=== PATIENT | female | born 1950 | race African-American/Black ===

== ENCOUNTER 2017-09-15 14:48 | Inpatient (IN) | payer MEDICARE ==
[2017-09-15] VITALS (7 sets, daily range): BP systolic 106–179; BP diastolic 67–98
[~2017-09-15] VITALS: Ht 165.1 cm; Wt 111.7 kg
[2017-09-15] MEDS ORDERED: AMIODARONE 150 MG/3 ML (CORDARONE) AMP IV ONE ×2 (15:00→15:53)
[2017-09-15] MEDS: AMIODARONE FOR BOLUS 150 MG in D5W 100 ML IVPB 100 ML IV ONE ×2 (15:10→15:35)
[2017-09-15] MEDS ORDERED: LIDOCAINE 1% INJ 20 ML 20 ML VIAL ONE ×2 (15:11→15:38)
[2017-09-15] MEDS ORDERED: MIDAZOLAM 5 MG/5 ML (VERSED) VIAL ONE (15:11)
[2017-09-15] MEDS ORDERED: HEParin 1000 UNIT/ML (10ML VIAL) FOR BOLUS ONE ×2 (15:11→15:14)
[2017-09-15] MEDS ORDERED: fentaNYL INJECTION 100 MCG/2 ML AMP ONE ×2 (15:11→16:57)
[2017-09-15] MEDS ORDERED: NS IV 1000 ML 2,000 ML ONE (15:12)
[2017-09-15] MEDS ORDERED: NS IV 1000 ML 1,000 ML IV ONE (15:15)
[2017-09-15] MEDS ORDERED: ASPIRIN 81 MG CHEW (CHILDREN'S ASA) PO ONE (15:15)
[2017-09-15] MEDS ORDERED: CLOPIDOGREL 300 MG (PLAVIX) TABLET PO ONE (15:15)
[2017-09-15 15:23] LABS: BASOPHILS % (AUTO) 1 % (0-10); EOSINOPHILS # (AUTO) 0.3 10^3/uL (0.0-0.3); EOSINOPHILS % (AUTO) 6 % (0-10); HEMATOCRIT 43 % (35-52); HEMOGLOBIN 13.8 G/DL (11.5-16.0); LYMPHOCYTES # (AUTO) 2.4 X 10^3 (1.0-4.0); LYMPHOCYTES % (AUTO) 46 % (12-44); MEAN CORPUSCULAR HEMOGLOBIN 28 PG (25-34); MEAN CORPUSCULAR HGB CONC 32 G/DL (32-36); MEAN CORPUSCULAR VOLUME 88 FL (80-99); MEAN PLATELET VOLUME 10.8 FL (7.4-10.4); MONOCYTES # (AUTO) 0.7 X 10^3 (0.0-1.0); MONOCYTES % (AUTO) 13 % (0-12); NEUTROPHILS # (AUTO) 1.8 X 10^3 (1.8-7.8); NEUTROPHILS % (AUTO) 35 % (42-75); PLATELET COUNT 283 10^3/uL (130-400); RED BLOOD COUNT 4.86 10^6/uL (4.35-5.85); WHITE BLOOD COUNT 5.1 10^3/uL (4.3-11.0)
--- NOTE | 2017-09-15 15:29 | ED Chest Pain ---
General Chief Complaint: Chest Pain Stated Complaint: TACHYCARDIA Source: patient, family Exam Limitations: clinical condition History of Present Illness Date Seen by Provider: September 15, 2017 Time Seen by Provider: 14:55 Initial Comments This 59-year-old woman presents to the emergency room in distress from chest pain. She was in the parking lot and brought into the ER by hospital staff. Pain had started approximately 20-25 minutes prior to arrival. She reportedly got some bad news about a family member's health when the symptoms started. She has a history of coronary artery disease with stent placement and defibrillator placement. She apparently has not been following closely with her belt changer. On the monitor she has a wide complex tachycardia. Allergies and Home Medications Allergies Coded Allergies: codeine (Verified Allergy, Unknown, 09/15/17) meperidine (Verified Allergy, Unknown, 09/15/17) morphine (Verified Allergy, Unknown, 09/15/17) Patient Home Medication List Home Medication List Reviewed: Yes Review of Systems Constitutional: no symptoms reported EENTM: No Symptoms Reported Respiratory: Shortness of Air Cardiovascular: See HPI Gastrointestinal: No Symptoms Reported Genitourinary: No Symptoms Reported Musculoskeletal: no symptoms reported Skin: no symptoms reported Psychiatric/Neurological: See HPI Endocrine: No Symptoms Reported Hematologic/Lymphatic: No Symptoms Reported Past Gdcrlvl-Wtuqyr-Vupyjv Hx Patient Social History Alcohol Use: Denies Use Recreational Drug Use: No Smoking Status: Never a Smoker Past Medical History Surgeries: Yes Coronary Stent, Defibrillator Respiratory: No Cardiac: Yes Coronary Artery Disease Neurological: No : No Reproductive Disorders: No Sexually Transmitted Disease: No Genitourinary: No Musculoskeletal: Yes Chronic Back Pain Endocrine: Yes Diabetes, Non-Insulin dep HEENT: No Cancer: No Psychosocial: No Integumentary: No Physical Exam Vital Signs Capillary Refill : General Appearance: No Apparent Distress, Severe Distress HEENT: PERRL/EOMI, Normal ENT Inspection, Pharynx Normal Neck: Normal Inspection Respiratory: Lungs Clear, Normal Breath Sounds, No Accessory Muscle Use, No Respiratory Distress Cardiovascular: No Edema, No Murmur, Irregularly Irregular, Tachycardia Gastrointestinal: Non Tender, Soft Extremity: Normal Inspection, No Pedal Edema Neurologic/Psychiatric: Alert, Oriented x3, No Motor/Sensory Deficits, millinery blocker II- XII Norm as Tested, Other (severely anxious, hyperventilating) Skin: Normal Color, Warm/Dry Critical Care Note Critical Care Start Time: 14:55 Stop Time: 15:29 Total Time (minutes) 34 Progress/Results/Core Measures Results/Orders My Orders Orders - MARLY DONOVAN MD Amiodarone For Bolus (Cordarone Bolus) (09/15/17 15:00) Cbc With Automated Diff (09/15/17 15:13) Magnesium (09/15/17 15:13) Chest 1 View, Ap/Pa Only (09/15/17:13) Ekg Tracing (09/15/17:13) Cardiac Profile 1 (09/15/17 15:13) Comprehensive Metabolic Panel (09/15/17 15:13) Myoglobin Serum (09/15/17:13) Protime With Inr (09/15/17:13) Partial Thromboplastin Time (09/15/17 15:13) O2 (09/15/17 15:13) Monitor-Rhythm Ecg Trace Only (09/15/17:) Lipid Panel (09/16/17 06:00) Aspirin Chewable Tablet (Baby Aspirin Ch (09/15/17 15:15) Saline Lock/Iv-Start (09/15/17 15:13) Clopidogrel Tablet (Plavix Tablet) (09/15/17 15:15) Heparin Injection (Heparin Injection) (09/15/17 15:15) Saline Lock/Iv-Start (09/15/17 15:15) Ns Iv 1000 Ml (Sodium Chloride 0.9%) (09/15/17 15:15) Amiodarone For Bolus (Cordarone Bolus) (09/15/17 15:15) Lidocaine 1% Inj 20 Ml (Xylocaine 1% Inj (09/15/17 15:11) Midazolam Injection (Versed Injection) (09/15/17 15:11) Fentanyl Injection (Sublimaze Injection (09/15/17 15:11) Heparin (Bolus Per Protocol) (Heparin (B (09/15/17 15:11) Ns Iv 1000 Ml (Sodium Chloride 0.9%) (09/15/17 15:12) Progress Progress Note #1: Time: 15:20 Progress Note Patient was alert with a palpable pulse on assessment. Dr. Wong and Dr. Layne were immediately accessible and were contacted. They immediately presented to the emergency room to assess the patient. The decision was made to take the patient directly to the Roofing Sales Representative. Progress Note #2: Time: 15:29 Progress Note I was called back to patient's room as she became unresponsive. It would appear that she hyperventilated and had a syncopal episode. She continued to have a strong pulse and measurable blood pressure. She eventually regained alertness. Because of the altered mental status, Plavix 600 mg and aspirin 324 mg were not administered as ordered. Heparin was held at Dr. Wong's request until aortic and be visualized during the catheterization. EKG #1: EKG Time: 14:57 Rhythm: V.Tach Comment Wide complex tachycardia with a rate of 171. EKG #2: EKG Time: 14:58 Rate: 143 Rhythm: V.Tach Comment Ventricular tachycardia with a rate of 143. Rate irregular. Departure Impression Primary Impression: Wide-complex tachycardia Additional Impressions: Chest pain Qualified Codes: R07.9 - Chest pain, unspecified Hyperventilation Disposition: ADMITTED INPATIENT Condition: Critical Admissions Decision to Admit Reason: Admit from ER (General) Decision to Admit/Date: September 15, 2017 Time/Decision to Admit Time: 15:20 Departure-Patient Inst. Referrals: NO,LOCAL PHYSICIAN (PCP/Family) Primary Care Physician MARLY DONOVAN MD September 15, 2017 15:29
[2017-09-15 15:39] LABS: INR 0.9 (0.8-1.4); PROTHROMBIN TIME PATIENT 12.7 SEC (12.2-14.7)
[2017-09-15 15:49] LABS: ALANINE AMINOTRANSFERASE 42 U/L (0-55); ALBUMIN 4.4 GM/DL (3.2-4.5); ALKALINE PHOSPHATASE 117 U/L (40-136); BILIRUBIN,TOTAL 0.9 MG/DL (0.1-1.0); BUN/CREATININE RATIO 20; CALCIUM 10.2 MG/DL (8.5-10.1); CARBON DIOXIDE 22 MMOL/L (21-32); CHLORIDE 114 MMOL/L (98-107); CREATININE SERUM 0.94 MG/DL (0.60-1.30); GFR ESTIMATED > 60; GLUCOSE 100 MG/DL (70-105); MAGNESIUM 2.2 MG/DL (1.8-2.4); POTASSIUM 3.6 MMOL/L (3.6-5.0); SODIUM 144 MMOL/L (135-145); TOTAL PROTEIN 7.7 GM/DL (6.4-8.2)
[2017-09-15 15:55] LABS: MYOGLOBIN SERUM 33.5 NG/ML (10.0-92.0)
[2017-09-15] MEDS ORDERED: AMIODARONE 450 MG/250 ML D5W EXCEL IV SCH ×2 (16:00)
[2017-09-15] MEDS ORDERED: AMIODARONE INJECTION 450 MG in D5W IV SOLUTION (EXCEL) 250 ML IV SCH (16:00)
[2017-09-15] MEDS ORDERED: meTOprolol 5 MG/5 ML (LOPRESSOR) VIAL ONE ×2 (16:24→16:56)
--- NOTE | 2017-09-15 16:32 | History & Physicial-Cardiolgy ---
HPI-Cardiology Cardiology Consultation: Date of Consultation 09/15/17 Date of Admission Attending Physician Janet Wong MD Admitting Physician Sakshi,Local Physician Consulting Physician Janet WONG MD HPI: Time Seen by Provider: 13:30 Chief Complaint: Chest pain This is a 67-year-old lady with history of biventricular ICD Medtronic, PCI with drug-eluting stent to the RCA. She presents with severe substernal chest pain radiating to the shoulders. She denied complaining of any shortness of breath. EKG showed wide complex tachycardia. Bolus amiodarone was given and the patient was rushed to the [facility] [employer] C[employer] Farmer. Review of Systems-Cardiology Review of Systems Constitutional: As described under HPI; No As described under HPI, No no symptoms reported, No chills, No fever, No lightheadedness Eyes: No As described under HPI, No no symptoms reported, No blindness, No blurred vision, No contact lenses, No drainage, No decreased acuity, No foreign body sensation, No pain, No vision change Ears/Nose/Throat: No As described under HPI, No no symptoms reported, No chronic hearing loss, No ear discharge, No ear pain, No nasal drainage, No ulcerations Respiratory: No no symptoms reported; As described under HPI; No As described under HPI, No cough, No orthopnea, No shortness of breath, No SOB with excertion Cardiovascular: No no symptoms reported; As described under HPI; No As described under HPI; chest pain; No edema, No irregular heart rate, No lightheadedness; palpitations Gastrointestinal: No no symptoms reported, No As described under HPI, No abdomen distended, No abdominal pain, No blood streaked bowels, No constipation , No diarrhea, No nausea, No vomiting, No stool coloration changes Genitourinary: No As described under HPI, No burning, No dysuria, No discharge , No frequency, No flank pain, No hematuria, No urgency : Yes : No Musculoskeletal: No no symptoms reported, No As describe under HPI, No back pain, No gout, No joint pain, No joint swelling, No muscle pain, No muscle stiffness, No neck pain, No other Skin: No no symptoms reported, No As described under HPI, No change in color, No change in hair/nails, No dryness, No lesions, No lumps, No rash, No other, No skin related problems, No ulcerations, No rash on exposed areas, No ulcerations on exposed areas Psychiatric/Neurological: No anxiety, No depression, No seizure, No focal weakness, No syncope Hematologic: No bleeding abnormalities PFV-Zcflag-Knryef Hx Patient Social History Alcohol Use: Denies Use Recreational Drug Use: No Smoking Status: Never a Smoker Recent Foreign Travel: No Recent Infectious Disease Expo: No Past Medical History PMH As described under Assessment. Allergies and Home Medications Allergies Coded Allergies: codeine (Verified Allergy, Unknown, 09/15/17) meperidine (Verified Allergy, Unknown, 09/15/17) morphine (Verified Allergy, Unknown, 09/15/17) Patient Home Medication List Home Medication List Reviewed: Yes Physical Exam-Cardiology Physical Exam Vital Signs/I&O 09/15/17 09/15/17 14:48 15:27 Temp 98.0 Pulse 194 133 Resp 18 24 B/P (MAP) 91/56 (68) 137/112 Pulse Ox 100 100 O2 Delivery Room Air Room Air Capillary Refill : Less Than 3 Seconds Constitutional: apparent distress HEENT: No PERRL, No normal ENT inspection, No TMs normal, No pharynx normal, No scleral icterus (R), No scleral icterus (L), No pale conjunctivae (R), No pale conjunctivae (L), No photophobia, No TM abnormal (R), No TM abnormal (L), No pharyngeal erythema, No tonsillar exudate, No other, No discharge, No EOMI, No hearing is well preserved, No hard of hearing, No oral hygience is good, No ulceration, No xanthelasmas are seen Neck: No non-tender, No full range of motion, No supple, No normal inspection, No carotid bruit, No limited range of motion, No lymphadenopathy (R), No lymphadenopathy (L), No tender lateral, No tender midline, No thyromegaly, No other, No carotid pulses are 2 + bilaterally, No with good upstrokes Respiratory: chest is bilaterally symmetric, lungs clear to auscultation Cardiovascular: No regular rate-rhythm, No irregularly irregular, No extra beats, No parasternal heave is noted, No JVD, No edema, No bradycardia; tachycardia; No point of maximal impulse, No cardiac thrills are palpable; S1 and S2; No gallop/S3, No gallop/S4, No diastolic murmur, No systolic murmur, No friction rub, No click, No other Gastrointestinal: No tender, No soft, No round, No distended, No pulsatile mass , No organomegaly, No guarding, No rebound, No tenderness, No hernia, No mass, No audible bowel sounds, No abnormal bowel sounds, No abdominal bruits, No spleenomegaly, No other Rectal: deferred Extremities: No normal range of motion, No non-tender, No normal inspection, No pedal edema, No calf tenderness, No normal capillary refill, No pelvis stable , No calf tenderness, No inflammation, No pedal edema, No slow capillary refill , No swelling, No other, No abrasion, No clubbing, No cyanosis, No ecchymosis, No laceration, No no lower extremity edema bilateral, No significant edema, No tenderness, No wound Neurologic/Psychiatric: alert, normal mood/affect, oriented x 3 Skin: No normal color, No warm/dry, No cyanosis, No cool, No diaphoresis, No damp, No ecchymosis, No jaundice, No mottled, No pallor, No rash, No tattoos/ piercings, No ulcerations, No rash on exposed areas, No ulcerations on exposed areas, No other Data Review Labs Laboratory Tests 09/15/17 15:15: White Blood Count 5.1, Red Blood Count 4.86, Hemoglobin 13.8, Hematocrit 43, Mean Corpuscular Volume 88, Mean Corpuscular Hemoglobin 28, Mean Corpuscular Hemoglobin Concent 32, Red Cell Distribution Width 14.0, Platelet Count 283, Mean Platelet Volume 10.8H, Neutrophils (%) (Auto) 35L, Lymphocytes (%) (Auto) 46H, Monocytes (%) (Auto) 13H, Eosinophils (%) (Auto) 6, Basophils (%) (Auto) 1 , Neutrophils # (Auto) 1.8, Lymphocytes # (Auto) 2.4, Monocytes # (Auto) 0.7, Eosinophils # (Auto) 0.3, Basophils # (Auto) 0.0, Prothrombin Time 12.7, INR Comment 0.9, Activated Partial Thromboplast Time 35, Sodium Level 144, Potassium Level 3.6, Chloride Level 114H, Carbon Dioxide Level 22, Anion Gap 8, Blood Urea Nitrogen 19H, Creatinine 0.94, Estimat Glomerular Filtration Rate > 60, BUN/Creatinine Ratio 20, Glucose Level 100, Calcium Level 10.2H, Magnesium Level 2.2, Total Bilirubin 0.9, Aspartate Amino Transf (AST/SGOT) 56H, Alanine Aminotransferase (ALT/SGPT) 42, Alkaline Phosphatase 117, Myoglobin 33.5, Troponin I < 0.30, Total Protein 7.7, Albumin 4.4 ECG Impression ECG Comment Wide-complex tachycardia A/P-Cardiology Assessment/Admission Diagnosis Wide-complex tachycardia, Hypotension, History of PCI/CAD, History of biventricular ICD Admission Status: Inpatient Order (span 2 midnights) Reason for Inpatient Admission: Wide-complex tachycardia, cardiogenic shock. Plan Severe chest pain with wide-complex tachycardia in a patient with previous history of CAD/PCI. Urgent consent was taken for coronary angiography. Amiodarone bolus 150 mg IV was given in the ER. Patient was also given aspirin and Plavix bolus in the ER. History of PCI/CAD: Rule out acute coronary syndrome with serial troponin. Aspirin, Plavix. Echocardiogram. History of biventricular ICD: Device interrogation in the morning. Hypotension: Secondary to wide-complex tachycardia. Urgent coronary angiography. Clinical Quality Measures AMI/AHF: ASA po Prior to arrival: Janet Juárez MD September 15, 2017 16:32
--- NOTE | 2017-09-15 16:33 | Cardiac Procedure Note-CS/ASA ---
Pre-Procedure Note Pre-Op Procedure Note H&P Reviewed The H&P was reviewed, patient examined and no changes noted. Date H&P Reviewed: September 15, 2017 Time H&P Reviewed: 15:45 Conscious Sedation Pre-Proced Time Reviewed: 15:45 ASA Class: 3 Airway Mallampati Classification: ([place] appropriate class) I. II. III, IV Lungs Heart ASA score ASA 1: a normal healthy patient ASA 2: a patient with a mild systemic disease (mid diabetes, controlled hypertension, obesity ASA 3: a patient with a severe systemic disease that limits activity (angina , COPD, prior Myocardial infarction) ASA 4: a patient with an incapacitating disease that is a constant threat to life (CHF, renal failure) ASA 5: a moribund patient not expected to survive 24 hrs. (ruptured aneurysm) ASA 6: a declared brain patient whose organs are being harvested. For emergent operations, add the letter E after the classification Grade 1 Sedation Plan: Analgesia, Amnesia, Plan communicated to team members, Discussed options with patient/fam, Discussed risks with patient/fam Note The patient is an appropriate candidate to undergo the planned procedure, sedation, and anesthesia. The patient immediately re-assessed prior to indication. Janet PLEITEZ MD September 15, 2017 16:33
--- NOTE | 2017-09-15 16:40 | Coronary Angiography Report ---
Coronary Angiography Report DATE OF PROCEDURE: 09/15/17 INDICATION: Severe chest pain, history of PCI, wide-complex tachycardia, hypotension. PREOPERATIVE DIAGNOSIS: Severe chest pain, history of PCI, wide-complex tachycardia, hypotension. POSTOPERATIVE DIAGNOSIS: Patent RCA stents, mild CAD, normal LV function. HISTORY: This is a 67-year-old lady with history of PCI to the RCA with drug- eluting stent and biventricular ICD implantation Medtronic. She presented with severe chest pain. EKG showed wide complex tachycardia with systolic blood pressure of 90 mmHg. She was rushed to the Cavalry Officer. PROCEDURES PERFORMED: 1.Coronary angiography. 2.Left heart catheterization. 3. Aortic root injection. 4. Aortic arch angiography. COMPLICATIONS: None. SPECIMENS: None. ESTIMATED BLOOD LOSS: 10 mL ANESTHESIA: Conscious sedation ANTICOAGULATION: None CONTRAST: 96 mL. FLUOROSCOPY: 2.6 minutes. FLOUROSCOPY DOSE: [id number] [id number] PROCEDURE DETAILS: The patient is a 67 female and was brought to the gold leaf laborer after informed consent was taken. All the risks and complications were explained in detail; this included the risk of bleeding, vascular damage, stroke , [place] and even . The patient was draped and prepped in the usual sterile fashion. Access was gained in the right femoral artery with a 6 [place] sheath and right femoral vein with a 5 [place] sheath. Coronary angiography, left heart catheterization, aortic root injection and aortic arch angiography was performed with a JR4, JL4 and pigtail catheter. Patient was given amiodarone infusion and Lopressor 5 mg IV 1. FINDINGS: 1.Left main: Patent. 2.LAD: Mild disease. Transapical vessel. 3.Left circumflex artery: Mild disease. 4.RCA: Patent stent in the proximal segment and distal segment. Ostial spasm was noted. No significant disease. 5.Left heart catheterization: Aortic pressure 127/51 mmHg. LV pressure 138/1 mmHg. LVEDP 9 mmHg. Normal LV function with no wall motion abnormalities. No gradient across the aortic valve. 6. Aortic root injection: Patent ostium of the RCA and left main artery. No aortic dissection noted. 7. Aortic arch angiography: No evidence of aneurysm or dissection. Patent proximal segments of the great arteries including brachiocephalic artery, left common carotid artery, and left subclavian artery. CONCLUSIONS: No significant CAD. No evidence of aortic dissection or aneurysm. Normal LV function. Continue amiodarone infusion. Start Lopressor. M. Moris Khalid, MD, FACP, FACC, [facility] Interventional Cardiology Janet PLEITEZ MD September 15, 2017 16:40
[2017-09-15] MEDS ORDERED: meTOprolol 5 MG/5 ML (LOPRESSOR) VIAL IV STA (16:59)
[2017-09-15] MEDS ORDERED: fentaNYL INJECTION 100 MCG/2 ML AMP IVP NR (17:00)
[2017-09-15] MEDS ORDERED: PATIENT MAY USE OWN MEDS, ALL PO SCH (17:00)
[2017-09-15] MEDS: NS IV 1000 ML 1,000 ML IV SCH (17:31)
[2017-09-15] MEDS ORDERED: RECEIVED CONTRAST (Hold Metformin) IV SCH (17:45)
[2017-09-15] MEDS ORDERED: IOHEXOL 350 MG/ML 150 ML (OMNIPAQUE 350) VIAL IV ONE (17:45)
[2017-09-15] MEDS ORDERED: CATHETER FLUSH 10 ML SYR IV PRN (17:45)
[2017-09-15] MEDS ORDERED: NS 250 ML (IVPB) BAG IV ONE (17:45)
[2017-09-15] MEDS ORDERED: fentaNYL INJECTION 100 MCG/2 ML AMP IVP PRN (19:15)
--- NOTE | 2017-09-15 20:05 | Diagnostic Imaging Report ---
EXAMINATION: Chest radiograph, portable AP view. DATE: 09/15/2017 at 1952 hours. INDICATION: 67-year-old female, central line placement. COMPARISON: None. FINDINGS: The right internal jugular central venous line overlies the mid to lower SVC. There is a left-sided cardiac assist device with leads. Heart size appears within normal limits. There is no identified pneumothorax. There is no large pleural effusion. There is no identified focal airspace consolidation. IMPRESSION: 1. Right internal jugular central venous line overlying the mid to lower SVC. 2. No identified acute cardiopulmonary abnormality. Dictated by: Dictated on workstation # [id number]
[2017-09-15] MEDS ORDERED: meTOprolol TARTRATE 50 MG (LOPRESSOR) TAB PO SCH (21:00)
[2017-09-15] MEDS ORDERED: ATORVASTATIN 80 MG (LIPITOR) TABLET PO SCH (21:00)
--- NOTE | 2017-09-15 21:43 | Diagnostic Imaging Report ---
PROCEDURE: CT angiography of the chest with contrast. TECHNIQUE: Multiple contiguous axial images were obtained through the chest after uneventful bolus administration of intravenous contrast. Reconstructed CTA MIP acquisitions were also performed. DATE: September 15, 2017. COMPARISON: None. INDICATION: 67-year-old female, chest pain. FINDINGS: There is no identified pulmonary nodule or mass. There is nonspecific right lower lobe and left lower lobe bronchial wall thickening. There are peripheral predominantly linear areas of opacity within the right and left lower lobes likely reflecting atelectasis. There is no otherwise noted focal airspace consolidation. There is no pneumothorax. There are trace bilateral pleural effusions. There is no identified pulmonary embolus. The heart is not enlarged. There is no pericardial effusion. There are atherosclerotic calcifications. There is no evidence of aortic dissection. There is a heterogeneous attenuation right thyroid nodule measuring 1.7 cm in size. There is no identified abnormally enlarged mediastinal, hilar, or axillary lymph node which meets CT size criteria for adenopathy. There is a oval probable left breast mass on axial image 71 which measures 1.5 cm in size. Recommend further evaluation with diagnostic mammography. The patient is status post cholecystectomy. There is a 6 mm low-attenuation left renal lesion on axial image 148 which is too small to characterize. Additional limited evaluation of the visualized portions of the upper abdomen is grossly unremarkable. There are degenerative changes of the spine. There is no identified acute bony abnormality. IMPRESSION: CT CHEST. 1. No pulmonary embolus or evidence of aortic dissection. 2. Nonspecific right and left lower lobe bronchial wall thickening. Trace bilateral pleural effusions. 3. 1.7 cm heterogeneous attenuation right thyroid nodule. Recommend dedicated thyroid ultrasound for further assessment. 4. 1.5 cm probable left breast mass near the level of the nipple. Recommend further evaluation with diagnostic mammography. Dictated by: Dictated on workstation # [id number]
[2017-09-15] MEDS ORDERED: DILTIAZEM INJECTION 125 MG in NS (IVPB) 100 ML IV SCH (22:15)
[2017-09-15] MEDS ORDERED: NS (IVPB) 100 ML ONE (22:16)
[2017-09-15] MEDS ORDERED: DILTIAZEM 125 MG/25 ML IV (CARDIZEM) IV ONE (22:17)
--- NOTE | 2017-09-15 22:32 | Consultation ---
History of Present Illness History of Present Illness Patient Consulted On(sy/time) 09/15/17 18:27 Date Seen by Provider: September 15, 2017 Time Seen by Provider: 18:27 History of Present Illness Consult requested by Dr. Wong for central line placement. Patient is a 67 year old female who was having substernal chest pain with radiation into jaws. Having some hyperventilation. No abdominal pain. Patient was taken to the shift lab technician for catheterization. Patient placed in the ICU and has poor venous access. It has been requested that a central line be placed. Denies n/v fever sweats chills. Allergies and Home Medications Allergies Coded Allergies: codeine (Verified Allergy, Unknown, 09/15/17) meperidine (Verified Allergy, Unknown, 09/15/17) morphine (Verified Allergy, Unknown, 09/15/17) Patient Home Medication List Home Medication List Reviewed: Yes Past Nirrcqg-Upjwfo-Dcfbyk Hx Patient Social History Alcohol Use: Denies Use Recreational Drug Use: No Smoking Status: Never a Smoker Recent Foreign Travel: No Contact w/Someone Who Travel: No Recent Infectious Disease Expo: No Recent Hopitalizations: No Physical Abuse Screen: No Sexual Abuse: No Seasonal Allergies Seasonal Allergies: No Surgeries History of Surgeries: Yes Surgeries: Coronary Stent, Defibrillator Respiratory History of Respiratory Disorde: No Cardiovascular History of Cardiac Disorders: Yes (pacemaker/defib implant) Cardiac Disorders: Coronary Artery Disease Neurological History of Neurological Disord: No Reproductive System : No Hx Reproductive Disorders: No Sexually Transmitted Disease: No Genitourinary History of Genitourinary Disor: No Gastrointestinal History of Gastrointestinal Di: No Gastrointestinal Disorders: Gastroesophageal Reflux, Gall Bladder Disease Musculoskeletal History of Musculoskeletal Dis: Yes Musculoskeletal Disorders: Chronic Back Pain Endocrine History of Endocrine Disorders: Yes Endocrine Disorders: Diabetes, Non-Insulin dep HEENT History of HEENT Disorders: No Cancer History of Cancer: No Psychosocial History of Psychiatric Problem: No Integumentary History of Skin or Integumenta: No Blood Transfusions History of Blood Disorders: No Family Medical History Significant Family History: No Pertinent Family Hx Physical Exam-General Problems Physical Exam Vital Signs Vital Signs - First Documented 09/15/17 14:48 Temp 98.0 Pulse 194 Resp 18 B/P (MAP) 91/56 (68) Pulse Ox 100 O2 Delivery Room Air Capillary Refill : Less Than 3 Seconds General Appearance: no apparent distress HEENT: PERRL/EOMI Neck: supple, normal inspection Respiratory: no respiratory distress, no accessory muscle use Cardiovascular: irregularly irregular Gastrointestinal: non tender, soft Rectal: deferred Back: no vertebral tenderness Extremities: no calf tenderness Neurologic/Psychiatric: alert, normal mood/affect, oriented x 3 Skin: warm/dry Lymphatic: no adenopathy Data Review Labs Laboratory Tests 09/15/17 15:15: White Blood Count 5.1, Red Blood Count 4.86, Hemoglobin 13.8, Hematocrit 43, Mean Corpuscular Volume 88, Mean Corpuscular Hemoglobin 28, Mean Corpuscular Hemoglobin Concent 32, Red Cell Distribution Width 14.0, Platelet Count 283, Mean Platelet Volume 10.8H, Neutrophils (%) (Auto) 35L, Lymphocytes (%) (Auto) 46H, Monocytes (%) (Auto) 13H, Eosinophils (%) (Auto) 6, Basophils (%) (Auto) 1 , Neutrophils # (Auto) 1.8, Lymphocytes # (Auto) 2.4, Monocytes # (Auto) 0.7, Eosinophils # (Auto) 0.3, Basophils # (Auto) 0.0, Prothrombin Time 12.7, INR Comment 0.9, Activated Partial Thromboplast Time 35, Sodium Level 144, Potassium Level 3.6, Chloride Level 114H, Carbon Dioxide Level 22, Anion Gap 8, Blood Urea Nitrogen 19H, Creatinine 0.94, Estimat Glomerular Filtration Rate > 60, BUN/Creatinine Ratio 20, Glucose Level 100, Calcium Level 10.2H, Magnesium Level 2.2, Total Bilirubin 0.9, Aspartate Amino Transf (AST/SGOT) 56H, Alanine Aminotransferase (ALT/SGPT) 42, Alkaline Phosphatase 117, Myoglobin 33.5, Troponin I < 0.30, Total Protein 7.7, Albumin 4.4 Assessment/Plan Assessment/Plan Assessment/Plan severe chest pain s/p cardiac cath, poor venous access risks and benefits discussed for central line placement u/s guided and patient and family understand and wish to proceed. will place. Will sign off, call if needed. Clinical Quality Measures AMI/AHF: ASA po Prior to arrival: No DVT/VTE Risk/Contraindication: Risk Factor Score Per Nursin RFS Level Per Nursing on Admit: 4+=Very High NELL FARAH DO September 15, 2017 22:32
[2017-09-15] MEDS: APIXABAN 5 MG (ELIQUIS) TABLET PO SCH (23:14)
[2017-09-15 23:44] LABS: BUN/CREATININE RATIO 22; CALCIUM 8.7 MG/DL (8.5-10.1); CARBON DIOXIDE 20 MMOL/L (21-32); CHLORIDE 114 MMOL/L (98-107); CREATININE SERUM 0.83 MG/DL (0.60-1.30); GFR ESTIMATED > 60; GLUCOSE 104 MG/DL (70-105); SODIUM 143 MMOL/L (135-145)
[2017-09-16] VITALS (16 sets, daily range): BP systolic 109–170; BP diastolic 51–80
[2017-09-16] MEDS ORDERED: AMIODARONE 450 MG/9 ML (CORDARONE) VIAL IV ONE (00:20)
[2017-09-16] MEDS ORDERED: D5W IV SOLUTION (EXCEL) 250 ML IV ONE (00:20)
[2017-09-16] MEDS: NS IV 1000 ML 1,000 ML IV SCH (02:03)
[2017-09-16 04:32] LABS: HEMOGLOBIN 11.8 G/DL (11.5-16.0); MEAN PLATELET VOLUME 10.6 FL (7.4-10.4); RED BLOOD COUNT 4.08 10^6/uL (4.35-5.85); WHITE BLOOD COUNT 7.4 10^3/uL (4.3-11.0)
[2017-09-16 04:49] LABS: BUN/CREATININE RATIO 20; CALCIUM 8.5 MG/DL (8.5-10.1); CARBON DIOXIDE 20 MMOL/L (21-32); CHLORIDE 114 MMOL/L (98-107); GFR ESTIMATED > 60; GLUCOSE 102 MG/DL (70-105); MAGNESIUM 1.9 MG/DL (1.8-2.4); PHOSPHORUS 3.1 MG/DL (2.3-4.7); POTASSIUM 3.1 MMOL/L (3.6-5.0); SODIUM 143 MMOL/L (135-145)
[2017-09-16 04:51] LABS: CHOLESTEROL 127 MG/DL (< 200); HDL CHOLESTEROL 45 MG/DL (40-60); TRIGLYCERIDES 67 MG/DL (<150); VLDL CHOLESTEROL 13 MG/DL (5-40)
[2017-09-16] MEDS ORDERED: MAGNESIUM 1 GM/100 ML IVPB 100 ML IV SCH (06:00)
[2017-09-16] MEDS ORDERED: KCL 20 MEQ TAB (K-DUR) PO SCH (06:00)
[2017-09-16] MEDS ORDERED: POTASSIUM CL 10MEQ/50ML IVPB 50 ML IV SCH (06:00)
[2017-09-16] MEDS ORDERED: meTOprolol TARTRATE 50 MG (LOPRESSOR) TAB PO NR (08:45)
[2017-09-16] MEDS: APIXABAN 5 MG (ELIQUIS) TABLET PO SCH (08:51)
[2017-09-16] MEDS ORDERED: ASPIRIN E.C. 81 MG (ECOTRIN) TAB PO SCH (09:00)
[2017-09-16] MEDS ORDERED: KCL 20 MEQ TAB (K-DUR) PO ONE ×2 (09:00→11:00)
[2017-09-16] MEDS ORDERED: CLOPIDOGREL 75 MG (PLAVIX) TABLET PO SCH (09:00)
[2017-09-16] MEDS ORDERED: CARV25TA PO (09:19)
[2017-09-16] MEDS ORDERED: ASPI-999 PO (09:19)
[2017-09-16] MEDS ORDERED: SOTA160T16 PO (09:19)
[2017-09-16] MEDS ORDERED: ATOR20TA66 PO (09:19)
[2017-09-16] MEDS ORDERED: FURO20TA4 PO (09:19)
[2017-09-16] MEDS ORDERED: RANI150T11 PO (09:19)
[2017-09-16] MEDS ORDERED: ISM60TCR PO (09:19)
[2017-09-16] MEDS ORDERED: FERR325T18 PO (09:19)
[2017-09-16] MEDS ORDERED: SOTALOL 80 MG (BETAPACE) TAB PO SCH ×2 (09:30→21:00)
--- NOTE | 2017-09-16 10:57 | Cardiology Progress Note ---
Cardiology SOAP Progress Note Subjective: Improvement in chest pain. Objective: I&O/Vital Signs 09/15/17 09/16/17 09/16/17 09/16/17 23:00 00:00 00:10 00:30 Temp 98.1 Pulse 79 60 Resp 18 16 B/P (MAP) 172/81 (111) 170/78 (108) Pulse Ox 98 97 O2 Delivery Room Air Room Air Room Air 09/16/17 09/16/17 09/16/17 09/16/17 01:00 01:00 02:00 03:00 Pulse 60 60 65 80 Resp 15 21 14 B/P (MAP) 153/63 (93) 159/80 (106) 154/74 (100) Pulse Ox 96 94 97 O2 Delivery Room Air Room Air Room Air 09/16/17 09/16/17 09/16/17 09/16/17 04:00 04:00 04:00 05:00 Temp 97.1 Pulse 61 80 Resp 18 16 B/P (MAP) 142/62 (88) 149/73 (98) Pulse Ox 95 99 O2 Delivery Room Air Room Air Room Air 09/16/17 09/16/17 09/16/17 09/16/17 06:00 07:00 07:54 08:51 Temp 97.6 Pulse 62 78 Resp 14 B/P (MAP) 133/66 (88) Pulse Ox 99 O2 Delivery Room Air Room Air 09/16/17 00:00 Intake Total 300 ml Output Total 0 ml Balance 300 ml Weight (Pounds): 246 Weight (Ounces): 3.0 Weight (Calculated Kilograms): 111.961861 Constitutional: appears stated age, AAO x 3; No apparent distress, No PERRL, No well-developed, No well-nourished, No other Respiratory: chest is bilaterally symmetric, lungs clear to auscultation Cardiovascular: regular rate-rhythm; No irregularly irregular, No extra beats, No parasternal heave is noted, No JVD, No edema, No bradycardia, No point of maximal impulse, No cardiac thrills are palpable; S1 and S2; No gallop/S3, No gallop/S4, No diastolic murmur, No systolic murmur, No friction rub, No click, No other Gastrointestional: No tender, No soft, No round, No distended, No pulsatile mass, No organomegaly, No guarding, No rebound, No tenderness, No hernia, No mass, No audible bowel sounds, No abnormal bowel sounds, No abdominal bruits, No spleenomegaly, No other Extremities: No normal range of motion, No non-tender, No normal inspection, No pedal edema, No calf tenderness, No normal capillary refill, No pelvis stable , No calf tenderness, No inflammation, No pedal edema, No slow capillary refill , No swelling, No other, No abrasion, No clubbing, No cyanosis, No ecchymosis, No laceration, No no lower extremity edema bilateral, No significant edema, No tenderness, No wound Neurologic/Psychiatric: alert, normal mood/affect, oriented x 3 Skin: No normal color, No warm/dry, No cyanosis, No cool, No diaphoresis, No damp, No ecchymosis, No jaundice, No mottled, No pallor, No rash, No tattoos/ piercings, No ulcerations, No rash on exposed areas, No ulcerations on exposed areas, No other Results/Procedures: Labs Laboratory Tests 09/15/17 15:15: White Blood Count 5.1, Red Blood Count 4.86, Hemoglobin 13.8, Hematocrit 43, Mean Corpuscular Volume 88, Mean Corpuscular Hemoglobin 28, Mean Corpuscular Hemoglobin Concent 32, Red Cell Distribution Width 14.0, Platelet Count 283, Mean Platelet Volume 10.8H, Neutrophils (%) (Auto) 35L, Lymphocytes (%) (Auto) 46H, Monocytes (%) (Auto) 13H, Eosinophils (%) (Auto) 6, Basophils (%) (Auto) 1 , Neutrophils # (Auto) 1.8, Lymphocytes # (Auto) 2.4, Monocytes # (Auto) 0.7, Eosinophils # (Auto) 0.3, Basophils # (Auto) 0.0, Prothrombin Time 12.7, INR Comment 0.9, Activated Partial Thromboplast Time 35, Sodium Level 144, Potassium Level 3.6, Chloride Level 114H, Carbon Dioxide Level 22, Anion Gap 8, Blood Urea Nitrogen 19H, Creatinine 0.94, Estimat Glomerular Filtration Rate > 60, BUN/Creatinine Ratio 20, Glucose Level 100, Calcium Level 10.2H, Magnesium Level 2.2, Total Bilirubin 0.9, Aspartate Amino Transf (AST/SGOT) 56H, Alanine Aminotransferase (ALT/SGPT) 42, Alkaline Phosphatase 117, Myoglobin 33.5, Troponin I < 0.30, Total Protein 7.7, Albumin 4.4 09/15/17 23:18: Sodium Level 143, Potassium Level 3.0L, Chloride Level 114H, Carbon Dioxide Level 20L, Anion Gap 9, Blood Urea Nitrogen 18, Creatinine 0.83, Estimat Glomerular Filtration Rate > 60, BUN/Creatinine Ratio 22, Glucose Level 104, Calcium Level 8.7, Troponin I < 0.30, D-Dimer 0.83H 09/16/17 03:30: White Blood Count 7.4, Red Blood Count 4.08L, Hemoglobin 11.8, Hematocrit 36, Mean Corpuscular Volume 88, Mean Corpuscular Hemoglobin 29, Mean Corpuscular Hemoglobin Concent 33, Red Cell Distribution Width 14.0, Platelet Count 233, Mean Platelet Volume 10.6H, Sodium Level 143, Potassium Level 3.1L, Chloride Level 114H, Carbon Dioxide Level 20L, Anion Gap 9, Blood Urea Nitrogen 16, Creatinine 0.80, Estimat Glomerular Filtration Rate > 60, BUN/Creatinine Ratio 20, Glucose Level 102, Calcium Level 8.5, Magnesium Level 1.9, Phosphorus Level 3.1, Triglycerides Level 67, Cholesterol Level 127, LDL Cholesterol Direct 70, VLDL Cholesterol 13, HDL Cholesterol 45 A/P: Assessment/Dx: Wide-complex tachycardia, Atrial fibrillation with rapid ventricular rate Hypotension, History of PCI/CAD, History of biventricular ICD Plan: Severe chest pain with wide-complex tachycardia in a patient with previous history of CAD/PCI. Coronary angiography showed patent stent in the RCA, no significant CAD. Normal LV function. Aortogram did not show any evidence of dissection or aneurysm. Patient continued to have chest pain and therefore chest CT angiography was done which did not show any pulmonary embolism or aortic dissection. Patient improved significantly after atrial fibrillation was controlled with amiodarone infusion and metoprolol. Atrial fibrillation with rapid ventricular rate, paroxysmal. Restart sotalol 160 mg twice a day. Continue beta blockers. Likely discharged today to follow- up with Dr. Zapata manager of photography at . History of PCI/CAD: Rule out acute coronary syndrome with serial troponin. Aspirin, Plavix. Echocardiogram. History of biventricular ICD: Device interrogation in the morning. Hypotension: Resolved Thank you for your consultation. Please call me if you have any questions. Lucila Wong MD, FACP, FACC, FSCAI, FHRS, CCDS Interventional Cardiology Cardiac Electrophysiology Vascular Medicine and Endovascular Interventions Clinical Quality Measures AMI/AHF: ASA po Prior to arrival: Janet Juárez MD September 16, 2017 10:57
--- NOTE | 2017-09-16 14:53 | Cardiology Discharge Summary ---
Diagnosis/Chief Complaint Date of Admission September 15, 2017 at 3:18 pm Date of Discharge 09/16/2017 Admission Diagnosis Wide-complex tachycardia, hypertension, severe chest pain Final/Discharge Diagnosis Atrial fibrillation with rapid ventricular rate Chief Complaint/HPI Chief Complaint/HPI This is a 67-year-old lady with history of biventricular ICD [employer], PCI with drug-eluting stent to the RCA. She presents with severe substernal chest pain radiating to the shoulders. She denied complaining of any shortness of breath. EKG showed wide complex tachycardia. Bolus amiodarone was given and the patient was rushed to the Environmental [facility]. Discharge Summary Procedures Coronary angiography did not show any significant CAD. Normal LV function. Discharge Physical Examination Normal cardiac vascular examination. Normal respiratory examination. Normal groin examination. Hospital Course Patient presented with significant chest pain, wide complex tachycardia. She had history of PCI and biventricular ICD implantation. She was taken directly to the [facility]. Coronary angiography did not reveal any significant CAD. Normal LV function was noted. She continued to have significant chest comfort post coronary angiography. She was started on amiodarone infusion, frequent fentanyl injection as well as IV Lopressor. Chest CT angiography was performed which ruled out pulmonary embolism and aortic dissection. Device interrogation revealed frequent paroxysmal atrial fibrillation which was causing her significant discomfort. No ICD shocks or ATP therapy. We aggressively treated her atrial fibrillation which resulted in resolution of her chest pain. I spoke at length with the patient and family. She was restarted on her outpatient medications including sotalol. Discussion & Recommendations Discussion She will start all her outpatient medications. All discharge instructions were discussed at length with the patient and family. The patient will like to do cardiology and electrophysiology follow-up here in [facility]. I'll be happy to set up follow-up with my office. Discharge instructions to call over 30 minutes to complete. Follow up appt.: Dr. Wong next week. Dicharge Diet: Cardiac Diet Activity as Tolerated: Yes Home Medications Reviewed patient Home Medication Reconciliation performed by pharmacy medication reconciliations cartography technician and/or nursing. Patients Allergies have been reviewed. Discharge Home Medications: Reviewed and agree with Discharge Medication list on patient's Discharge Instruction sheet Condition at discharge Stable Instructions to patient/family Start Eliquis twice a day. Stop aspirin. Continue rest of the medications. Follow-up in one week with Dr. Wong. Diagnosis/Problems Diagnosis/Problems (1) Atrial fibrillation with RVR Status: Resolved (2) Chest pain Status: Resolved Qualifiers: Qualified Codes: R07.9 - Chest pain, unspecified (3) Hypotension Status: Resolved (4) Wide-complex tachycardia Status: Resolved Clinical Quality Measures AMI/AHF: ASA po Prior to arrival: No DVT/VTE Risk/Contraindication: Risk Factor Score Per Nursin RFS Level Per Nursing on Admit: 4+=Very High Janet WONG MD September 16, 2017 2:53 pm
[2017-09-16] MEDS ORDERED: APIX5TAB PO (15:01)
--- NOTE | 2017-09-16 15:01 | Discharge Inst-Post CATH ---
Discharge Inst-CATH Post Cardiac Cath D/C Inst Follow Up/Plan Dr. Wong in one week CARDIAC CATH DISCHARGE INSTRUCTIONS *Hold Metformin for 48 hours post heart cath. ACTIVITY * Go Home directly and rest. * Limit activity of the leg (or wrist if it was used) for 7 days including aerobics, swimming, jogging, bicycling, etc. * Restrict stair-climbing for 7 days if possible, if not, climb up with your non -cath leg, then bring together on the same step. * Avoid lifting, pushing, pulling or excessive movement of the affected extremity for 7 days. * Customary sexual activity may be resumed after 2 days-use caution not to use a position that strains or causes pain to the affected extremity. * No driving for 24 hours. * NO SMOKING. * Avoid straining for bowel movements for 7 days. * Gentle walking on level ground is allowed. * Returning to work will depend on the type of procedure and the results. Your doctor will discuss this with you. CALL YOUR DOCTOR FOR ANY OF THE FOLLOWING: *If bleeding from the puncture site occurs- Apply gentle pressure to site with clean cloth and call your doctor or EMS. * If a knot or lump forms under the skin, increases in size, or causes pain. * If bruising appears to be worsening or moving further down your leg instead of disappearing. * Temperature above 101 F. CARE OF YOUR GROIN INCISION; * Bruising or purple discoloration of the skin near the puncture site is common. * You may shower only, no bathtub bathing for 5 days. Be careful to avoid slipping as your leg may feel stiff. * If a closure device was used on your femoral artery, please see the attached guide regarding care of the device and your leg. * REMOVE the dressing from your groin the next day after your procedure in the shower. CARE OF YOUR WRIST INCISION; * Bruising or purple discoloration of the skin near the puncture site is common. * You may shower. * DO NOT submerge wrist. * Remove dressing in 24 hours. Janet WONG MD September 16, 2017 3:01 pm
[2017-09-16] MEDS ORDERED: SOTALOL HCL 160 MG PO SCH (21:00)
== END 2017-09-16 15:30 | disposition home or self-care (01) | DRG 287 ==
LOC: EDUNIT# 14:48 → ER 14:50 → CATH 15:16 → ICU 15:18
PROVIDERS: ADMIT Internal Medicine Interventional Cardiology; ATTEND Internal Medicine Interventional Cardiology
PROC: 4A023N7 Measurement of Cardiac Sampling and Pressure, Left Heart, Percutaneous Approach (ICD-10-PCS; principal; 2017-09-15)
PROC: B2151ZZ Fluoroscopy of Left Heart using Low Osmolar Contrast (ICD-10-PCS; 2017-09-15)
PROC: B2111ZZ Fluoroscopy of Multiple Coronary Arteries using Low Osmolar Contrast (ICD-10-PCS; 2017-09-15)
PROC: B3101ZZ Fluoroscopy of Thoracic Aorta using Low Osmolar Contrast (ICD-10-PCS; 2017-09-15)
DX: I48.0 Paroxysmal atrial fibrillation (principal); I47.2 Ventricular tachycardia; I95.9 Hypotension, unspecified; I25.10 Atherosclerotic heart disease of native coronary artery without angina pectoris; E11.9 Type 2 diabetes mellitus without complications; K21.9 Gastro-esophageal reflux disease without esophagitis; Z95.810 Presence of automatic (implantable) cardiac defibrillator; Z95.5 Presence of coronary angioplasty implant and graft; Z79.02 Long term (current) use of antithrombotics/antiplatelets; Z79.84 Long term (current) use of oral hypoglycemic drugs; Z79.899 Other long term (current) drug therapy
CPT/HCPCS: 36221; 36415; 71045; 71275; 80048; 80053; 80061; 83735; 83874; 84100; 84484; 85025; 85027; 85379; 85610; 85730; 93005; 93041; 93306; 93458; 93567; 96374

== ENCOUNTER 2017-09-17 16:38 | Inpatient (IN) | payer MEDICARE ==
[2017-09-17] VITALS (8 sets, daily range): BP systolic 144–162; BP diastolic 70–95
[~2017-09-17] VITALS: Ht 165.1 cm; Wt 112.1 kg
[~2017-09-17 16:38] MED LIST: APIX5TAB PO; ASPI-999 PO; ATOR20TA66 PO; CARV25TA PO; FERR325T18 PO; FURO20TA4 PO; ISM60TCR PO; RANI150T11 PO; SOTA160T16 PO
[2017-09-17] MEDS ORDERED: AMIODARONE FOR BOLUS 150 MG in D5W 100 ML IVPB 100 ML IV ONE (17:00)
[2017-09-17] MEDS ORDERED: LORazepam INJ 2 MG/ML (ATIVAN) VIAL IM ONE (17:00)
[2017-09-17] MEDS ORDERED: DILTIAZEM INJECTION 125 MG in NS (IVPB) 100 ML IV SCH (17:00)
[2017-09-17] MEDS ORDERED: ASPIRIN 81 MG CHEW (CHILDREN'S ASA) PO ONE (17:00)
[2017-09-17 17:10] LABS: BASOPHILS % (AUTO) 0 % (0-10); EOSINOPHILS # (AUTO) 0.2 10^3/uL (0.0-0.3); EOSINOPHILS % (AUTO) 2 % (0-10); HEMATOCRIT 37 % (35-52); HEMOGLOBIN 12.3 G/DL (11.5-16.0); LYMPHOCYTES # (AUTO) 2.2 X 10^3 (1.0-4.0); LYMPHOCYTES % (AUTO) 23 % (12-44); MEAN CORPUSCULAR HEMOGLOBIN 29 PG (25-34); MEAN CORPUSCULAR HGB CONC 33 G/DL (32-36); MEAN CORPUSCULAR VOLUME 88 FL (80-99); MEAN PLATELET VOLUME 10.2 FL (7.4-10.4); MONOCYTES # (AUTO) 0.6 X 10^3 (0.0-1.0); MONOCYTES % (AUTO) 6 % (0-12); NEUTROPHILS # (AUTO) 6.5 X 10^3 (1.8-7.8); NEUTROPHILS % (AUTO) 69 % (42-75); PLATELET COUNT 232 10^3/uL (130-400); RED BLOOD COUNT 4.23 10^6/uL (4.35-5.85); RED CELL DISTRIBUTION WIDTH 13.9 % (10.0-14.5); WHITE BLOOD COUNT 9.5 10^3/uL (4.3-11.0)
--- NOTE | 2017-09-17 17:16 | ED Chest Pain ---
General Chief Complaint: Chest Pain Stated Complaint: CP Nursing Triage Note: PATIENT HERE FOR CHEST PAIN BY EMS. SHE WAS DISCHARGED YESTERDAY FOLLOWIGN A CLEAN HEART CATH. PATIENT SOB AND PAIN RADIATES DOWN LEFT ARM. SHE HAD 324 ASA IN ROUTE. Nursing Sepsis Screen: No Definite Risk Source: patient Exam Limitations: no limitations History of Present Illness Date Seen by Provider: September 17, 2017 Time Seen by Provider: 16:46 Initial Comments Here by EMS with report of significant shortness of breath and central chest pain and pressure that radiates down the left arm. Aspirin given by EMS. Unable to get IV start. Patient just discharged yesterday for similar presentation. She had heart catheter 2 days ago that was negative. Patient found to be in A. fib with RVR. She appears to be back and this today. No nausea or vomiting. She is short of breath with normal O2 sats. No diaphoresis. Patient is very anxious. Timing/Duration: 1/2 hour Severity/Quality: moderate, severe Location: central Radiation: arms Activities at Onset: none Prior CP/Workup: cardiac cath Modifying Factors: improves with oxygen, improves with rest ASA po [employer] WORKER: Yes NTG SL [employer] SOC[employer] WORKER: No Associated Symptoms: abdominal pain; No fever/chills, No nausea/vomiting; shortness of breath, weakness Allergies and Home Medications Allergies Coded Allergies: codeine (Verified Allergy, Unknown, 09/15/17) meperidine (Verified Allergy, Unknown, 09/15/17) morphine (Verified Allergy, Unknown, 09/15/17) Home Medications Apixaban 5 Mg Tablet, 5 MG PO BID Prescribed by: Janet PLEITEZ on 09/16/17 1501 Atorvastatin Calcium 20 Mg Tablet, 20 MG PO HS, (Reported) Carvedilol 25 Mg Tablet, 25 MG PO BID, (Reported) Ferrous Sulfate 325 Mg Tablet, 325 MG PO BID, (Reported) Furosemide 20 Mg Tablet, 20 MG PO DAILY, (Reported) Isosorbide Mononitrate 60 Mg Tab, 60 MG PO DAILY, (Reported) Ranitidine HCl 150 Mg Tablet, 150 MG PO BID, (Reported) Sotalol HCl 160 Mg Tablet, 160 MG PO BID, (Reported) Patient Home Medication List Home Medication List Reviewed: Yes Review of Systems Constitutional: see HPI; No chills, No fever EENTM: No Symptoms Reported Respiratory: See HPI Cardiovascular: See HPI, Chest Pain, Irregular Heart Rate, Palpitations Gastrointestinal: No Symptoms Reported Genitourinary: No Symptoms Reported Musculoskeletal: no symptoms reported Skin: no symptoms reported Psychiatric/Neurological: See HPI, Anxiety All Other Systems Reviewed Negative Unless Noted: Yes Past Jzxkqwc-Ymsacg-Ylkyuv Hx Past Med/Social Hx: Reviewed Nursing Past Med/Soc Hx Patient Social History Alcohol Use: Denies Use Recreational Drug Use: No Smoking Status: Never a Smoker 2nd Hand Smoke Exposure: No Recent Foreign Travel: No Contact w/Someone Who Travel: No Recent Infectious Disease Expo: No Recent Hopitalizations: No Seasonal Allergies Seasonal Allergies: No Past Medical History Surgeries: Yes Coronary Stent, Defibrillator Respiratory: No Cardiac: Yes (pacemaker/defib implant) Coronary Artery Disease Neurological: No Reproductive Disorders: No Sexually Transmitted Disease: No Genitourinary: No Gastrointestinal: No Gastroesophageal Reflux, Gall Bladder Disease Musculoskeletal: Yes Chronic Back Pain Endocrine: Yes Diabetes, Non-Insulin dep HEENT: No Cancer: No Psychosocial: No Integumentary: No Blood Disorders: No Family Medical History Reviewed Nursing Family Hx No Pertinent Family Hx Physical Exam Vital Signs Vital Signs - First Documented 09/17/17 16:40 Temp 98.5 Pulse 169 Resp 28 B/P (MAP) 151/87 (108) Pulse Ox 97 O2 Delivery Nasal Cannula O2 Flow Rate 2.00 Capillary Refill : Less Than 3 Seconds General Appearance: No Apparent Distress, WD/WN HEENT: PERRL/EOMI, Pharynx Normal Neck: Non Tender, Supple Respiratory: Lungs Clear, Normal Breath Sounds Cardiovascular: No Murmur, Irregularly Irregular, Tachycardia Gastrointestinal: Non Tender, Soft Extremity: Normal Range of Motion, Non Tender Neurologic/Psychiatric: Alert, Oriented x3 Skin: Normal Color, Warm/Dry Progress/Results/Core Measures Results/Orders Lab Results Laboratory Tests Test 09/17/17 17:00 Range/Units White Blood Count 9.5 4.3-11.0 10^3/uL Red Blood Count 4.23 L 4.35-5.85 10^6/uL Hemoglobin 12.3 11.5-16.0 G/DL Hematocrit 37 35-52 % Mean Corpuscular Volume 88 80-99 FL Mean Corpuscular Hemoglobin 29 25-34 PG Mean Corpuscular Hemoglobin Concent 33 32-36 G/DL Red Cell Distribution Width 13.9 10.0-14.5 % Platelet Count 232 130-400 10^3/uL Mean Platelet Volume 10.2 7.4-10.4 FL Neutrophils (%) (Auto) 69 42-75 % Lymphocytes (%) (Auto) 23 12-44 % Monocytes (%) (Auto) 6 0-12 % Eosinophils (%) (Auto) 2 0-10 % Basophils (%) (Auto) 0 0-10 % Neutrophils # (Auto) 6.5 1.8-7.8 X 10^3 Lymphocytes # (Auto) 2.2 1.0-4.0 X 10^3 Monocytes # (Auto) 0.6 0.0-1.0 X 10^3 Eosinophils # (Auto) 0.2 0.0-0.3 10^3/uL Basophils # (Auto) 0.0 0.0-0.1 10^3/uL Prothrombin Time 13.3 12.2-14.7 SEC INR Comment 1.0 0.8-1.4 Activated Partial Thromboplast Time 35 24-35 SEC Sodium Level 143 135-145 MMOL/L Potassium Level 3.9 3.6-5.0 MMOL/L Chloride Level 114 H 98-107 MMOL/L Carbon Dioxide Level 22 21-32 MMOL/L Anion Gap 7 5-14 MMOL/L Blood Urea Nitrogen 17 7-18 MG/DL Creatinine 0.97 0.60-1.30 MG/DL Estimat Glomerular Filtration Rate > 60 BUN/Creatinine Ratio 18 Glucose Level 85 70-105 MG/DL Calcium Level 9.6 8.5-10.1 MG/DL Magnesium Level 2.0 1.8-2.4 MG/DL Total Bilirubin 0.9 0.1-1.0 MG/DL Aspartate Amino Transf (AST/SGOT) 37 H 5-34 U/L Alanine Aminotransferase (ALT/SGPT) 36 0-55 U/L Alkaline Phosphatase 107 40-136 U/L Myoglobin 43.2 10.0-92.0 NG/ML Troponin I < 0.30 <0.30 NG/ML Total Protein 6.9 6.4-8.2 GM/DL Albumin 4.0 3.2-4.5 GM/DL My Orders Orders - JOSE HILLS MD Cbc With Automated Diff (09/17/17 16:49) Magnesium (09/17/17 16:49) Chest 1 View, Ap/Pa Only (09/17/17 16:49) Ekg Tracing (09/17/17 16:49) Cardiac Profile 1 (09/17/17 16:49) Comprehensive Metabolic Panel (09/17/17 16:49) Myoglobin Serum (09/17/17 16:49) Protime With Inr (09/17/17 16:49) Partial Thromboplastin Time (09/17/17 16:49) O2 (09/17/17 16:49) Monitor-Rhythm Ecg Trace Only (09/17/17 16:49) Lipid Panel (09/18/17 06:00) Aspirin Chewable Tablet (Baby Aspirin Ch (09/17/17 17:00) Saline Lock/Iv-Start (09/17/17 16:49) Lorazepam Injection (Ativan Injection) (09/17/17 17:00) Amiodarone For Bolus (Cordarone Bolus) (09/17/17 17:00) Ns (Ivpb) (Sodium C... W/Diltiazem Injec (09/17/17 17:00) Medications Given in ED Current Medications Medications Dose Ordered Sig/Maryann Route Start Time Stop Time Status Last Admin Dose Admin Amiodarone HCl 150 mg/Dextrose 103 ml @ 600 mls/hr ONCE ONCE IV 09/17/17 17:00 09/17/17 17:10 DC 09/17/17 17:12 600 MLS/HR Lorazepam 1 mg ONCE ONCE IM 09/17/17 17:00 09/17/17 17:01 DC 09/17/17 17:07 1 MG Vital Signs/I&O 09/17/17 09/17/17 16:40 16:40 Temp 98.5 Pulse 169 Resp 28 B/P (MAP) 151/87 (108) Pulse Ox 97 99 O2 Delivery Nasal Cannula Nasal Cannula O2 Flow Rate 2.00 2.00 Blood Pressure Mean: 108 Progress Progress Note : Progress Note Seen and evaluated. IV, labs, EKG and chest x-ray ordered. IV placed by me via ultrasound guidance to the left before meals with good results. 20-gauge Angiocath placed. I did discuss the case with Dr. Pleitez at 1647. He is recommending amiodarone and Cardizem if we have it. Amiodarone 150 mg IV ordered. Cardizem drip at 20 mg at hour ordered. Monitor patient. 1814: Heart rate now 60s and patient doing much better. She did receive Ativan 1 mg IM earlier and this seems to have helped as well. 1843: I did discuss the case with Dr. Madrid she accepts patient for admission to the ICU, observation status. Cardiology to follow as well. Patient and family informed and agree with plan. We will decrease Cardizem to 15 mg per hour now. Initial ECG Impression Date: September 17, 2017 Initial ECG Impression Time: 16:43 Initial ECG Rate: 139 Initial ECG Rhythm: A Fib/Flutter Initial ECG Impression: Atrial Fibrillation w/RVR Comment Ejaculation with rapid ventricular rate. Left bundle branch block. Previous also shows A. fib with RVR. No evidence of ST elevation [place]. Interpreted by me. Diagnostic Imaging Diagonstic Imaging: Xray Plain Films/CT/US/NM/MRI: chest Comments NAME: GAGANDEEP [facility] REC#: [id number] PT STATUS: REG ER : 1950 PHYSICIAN: JOSE HILLS MD ADMIT DATE: 09/17/17/ER Signed Date of Exam: 09/17/17 CHEST 1 VIEW, AP/PA ONLY INDICATION: Severe chest pain. FINDINGS: Pacemaker device unremarkable. Heart size upper limits but stable from priors. No vascular congestion, edema, pneumonia, effusion or pneumothorax. IMPRESSION: Stable chest. Dictated by: Dictated on workstation # [id number] Dict: 09/17/171739 Trans: 09/17/171800 Interpreted by: CARRIE DOVE Electronically signed by: CARRIE DOVE 09/17/17 180 Departure Communication (Admissions) Time/Spoke to Admitting Phy: 18:44 Time/Spoke to Consulting Phy: 16:47 Impression Primary Impression: Atrial fibrillation with RVR Additional Impression: Chest pain Qualified Codes: R07.9 - Chest pain, unspecified Disposition: ADMITTED INPATIENT Condition: Stable Admissions Decision to Admit Reason: Admit from ER (General) Decision to Admit/Date: September 17, 2017 Time/Decision to Admit Time: 16:47 Departure-Patient Inst. Referrals: NO,LOCAL PHYSICIAN (PCP/Family) Primary Care Physician JOSE HILLS MD September 17, 2017 17:16
[2017-09-17 17:23] LABS: PROTHROMBIN TIME PATIENT 13.3 SEC (12.2-14.7)
[2017-09-17 17:34] LABS: ALANINE AMINOTRANSFERASE 36 U/L (0-55); ALKALINE PHOSPHATASE 107 U/L (40-136); BILIRUBIN,TOTAL 0.9 MG/DL (0.1-1.0); BUN/CREATININE RATIO 18; CALCIUM 9.6 MG/DL (8.5-10.1); CARBON DIOXIDE 22 MMOL/L (21-32); CHLORIDE 114 MMOL/L (98-107); CREATININE SERUM 0.97 MG/DL (0.60-1.30); GFR ESTIMATED > 60; GLUCOSE 85 MG/DL (70-105); POTASSIUM 3.9 MMOL/L (3.6-5.0); SODIUM 143 MMOL/L (135-145); TOTAL PROTEIN 6.9 GM/DL (6.4-8.2)
[2017-09-17 17:40] LABS: MYOGLOBIN SERUM 43.2 NG/ML (10.0-92.0)
--- NOTE | 2017-09-17 17:48 | Diagnostic Imaging Report ---
INDICATION: Severe chest pain. FINDINGS: Pacemaker device unremarkable. Heart size upper limits but stable from priors. No vascular congestion, edema, pneumonia, effusion or pneumothorax. IMPRESSION: Stable chest. Dictated by: Dictated on workstation # [id number]
[2017-09-17] MEDS: fentaNYL INJECTION 100 MCG/2 ML AMP IVP PRN ×2 (19:56→21:56)
[2017-09-17] MEDS ORDERED: LORazepam INJ 2 MG/ML (ATIVAN) VIAL IV PRN (21:00)
[2017-09-17] MEDS ORDERED: NITROGLYCERIN 0.4 MG SL TABS BTL 25'S SL PRN (21:00)
[2017-09-17] MEDS: DILTIAZEM IV SCH ×4 (21:03→23:41)
[2017-09-17] MEDS: NS IV SCH ×4 (21:03→23:41)
[2017-09-17] MEDS: APIXABAN 5 MG (ELIQUIS) TABLET PO SCH (21:09)
[2017-09-17] MEDS ORDERED: DILTIAZEM (Omnicell drip kit) 5 X 25 MG VIALS ONE (23:29)
[2017-09-17] MEDS ORDERED: NS (IVPB) 100 ML ONE (23:29)
[2017-09-18] VITALS (23 sets, daily range): BP systolic 108–169; BP diastolic 65–99
[2017-09-18] MEDS ORDERED: DILTIAZEM (Omnicell drip kit) 5 X 25 MG VIALS ONE (04:44)
[2017-09-18] MEDS ORDERED: NS (IVPB) 100 ML ONE (04:44)
[2017-09-18 06:16] LABS: BILIRUBIN,TOTAL 0.8 MG/DL (0.1-1.0); CREATININE SERUM 1.14 MG/DL (0.60-1.30); MAGNESIUM 2.4 MG/DL (1.8-2.4); POTASSIUM 3.9 MMOL/L (3.6-5.0); TOTAL PROTEIN 6.7 GM/DL (6.4-8.2)
[2017-09-18 06:18] LABS: CHOLESTEROL 96 MG/DL (< 200); HDL CHOLESTEROL 34 MG/DL (40-60); TRIGLYCERIDES 69 MG/DL (<150); VLDL CHOLESTEROL 14 MG/DL (5-40)
[2017-09-18] MEDS: MAGNESIUM 1 GM/100 ML IVPB 100 ML IV SCH (06:23)
[2017-09-18] MEDS: POTASSIUM CL 10MEQ/50ML IVPB 50 ML IV SCH (06:23)
[2017-09-18] MEDS: KCL 20 MEQ TAB (K-DUR) PO SCH (06:24)
[2017-09-18 07:17] LABS: BASOPHILS % (AUTO) 0 % (0-10); EOSINOPHILS # (AUTO) 0.3 10^3/uL (0.0-0.3); EOSINOPHILS % (AUTO) 4 % (0-10); HEMATOCRIT 35 % (35-52); HEMOGLOBIN 11.5 G/DL (11.5-16.0); LYMPHOCYTES # (AUTO) 1.7 X 10^3 (1.0-4.0); LYMPHOCYTES % (AUTO) 26 % (12-44); MEAN CORPUSCULAR HEMOGLOBIN 29 PG (25-34); MEAN CORPUSCULAR HGB CONC 33 G/DL (32-36); MEAN CORPUSCULAR VOLUME 88 FL (80-99); MONOCYTES # (AUTO) 0.5 X 10^3 (0.0-1.0); MONOCYTES % (AUTO) 8 % (0-12); NEUTROPHILS # (AUTO) 4.1 X 10^3 (1.8-7.8); NEUTROPHILS % (AUTO) 63 % (42-75); PLATELET COUNT 206 10^3/uL (130-400); RED BLOOD COUNT 3.95 10^6/uL (4.35-5.85); WHITE BLOOD COUNT 6.5 10^3/uL (4.3-11.0)
[2017-09-18] MEDS: APIXABAN 5 MG (ELIQUIS) TABLET PO SCH ×2 (08:19→21:35)
[2017-09-18] MEDS: ASPIRIN E.C. 325 MG (ECOTRIN) TABLET PO SCH (08:19)
[2017-09-18] MEDS: fentaNYL INJECTION 100 MCG/2 ML AMP IVP PRN (08:23)
--- NOTE | 2017-09-18 09:06 | History & Physical-Hospitalist ---
History of Present Illness HPI/Chief Complaint Pt is a 67yoAAF with a PMH of a-fib and recent admission for wide complex tachycardia. 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 It was determined that her symptoms were exacerbated by atrial fibrillation. She was discharged from the hospital on 09/16 with well controlled rate and rhythm. She returned to the hospital for evaluation of new onset chest pain. She states her symptoms started on 09/17 at 4pm. She was resting when she developed chest pain and SOB. She located her pain to the center of her chest that radiated to her left arm. She felt nauseated but was not diaphoretic. Her pain radiated down her left arm. This felt similar to the pain she had had when he AICD was placed. She presented to the ER and was found to be in a-fib with RVR and was admitted to the ICU for cardizem. Her symptoms have improved today but not resolved. Source: patient Date Seen 09/18/17 Time Seen by Provider: 09:04 Attending Physician Miracle Madrid MD PCP No,Local Physician Referring Physician Date of Admission September 17, 2017 at 18:49 Home Medications & Allergies Home Medications Reviewed patient Home Medication Reconciliation performed by pharmacy medication reconciliations line technician and/or nursing. Patients Allergies have been reviewed. Allergies Allergies Coded Allergies codeine (Verified Allergy, Unknown, 09/15/17) meperidine (Verified Allergy, Unknown, 09/15/17) morphine (Verified Allergy, Unknown, 09/15/17) Past Xquwyxh-Aixged-Knqugm Hx Past Med/Social Hx: Reviewed Nursing Past Med/Soc Hx, Reviewed and Corrections made Patient Social History Employed/Student: employed Alcohol Use: Denies Use Recreational Drug Use: No Smoking Status: Never a Smoker 2nd Hand Smoke Exposure: No Physical Abuse Screen: No Sexual Abuse: No Recent Foreign Travel: No Contact w/other who traveled: No Recent Hopitalizations: No Recent Infectious Disease Expo: No Immunizations Up To Date Date of Pneumonia Vaccine: Feb 17, 2017 Seasonal Allergies Seasonal Allergies: No Past Medical History Surgeries: Coronary Stent, Defibrillator, Pacemaker Cardiac: Atrial Fibrillation, Coronary Artery Disease, Hypertension, Irregular Heartbeat Reproductive: No Sexually Transmitted Disease: No Gastrointestinal: Gastroesophageal Reflux, Gall Bladder Disease Musculoskeletal: Degenerate Disk Disease, Chronic Back Pain Endocrine: Diabetes, Non-Insulin dep History of Blood Disorders: No Family History Reviewed and Corrections made Heart Disease (brother with AICD) Review of Systems Constitutional: No chills, No fever EENTM: No blurred vision, No double vision, No nose congestion, No throat pain Respiratory: No cough, No hemoptysis; short of breath; No wheezing Cardiovascular: chest pain, edema, palpitations; No syncope Gastrointestinal: No abdominal pain, No constipation, No diarrhea; nausea; No vomiting Genitourinary: No dysuria, No frequency Musculoskeletal: back pain (chronic); No joint pain, No muscle pain Skin: No lesions, No rash Psychiatric/Neurological: Denies Headache, Denies Numbness, Denies Tingling All Other Systems Reviewed Negative Unless Noted: Yes Physical Exam Physical Exam Vital Signs Vital Signs - First Documented 09/17/17 16:40 Temp 98.5 Pulse 169 Resp 28 B/P (MAP) 151/87 (108) Pulse Ox 97 O2 Delivery Nasal Cannula O2 Flow Rate 2.00 Capillary Refill : Less Than 3 Seconds General Appearance: No Apparent Distress, WD/WN HEENT: PERRL/EOMI, Moist Mucous Membranes; No Scleral Icterus (L), No Scleral Icterus (R) Neck: Non Tender, Supple; No JVD, No Thyromegaly Respiratory: Lungs Clear, No Respiratory Distress Cardiovascular: Regular Rate, Rhythm, No Murmur Gastrointestinal: Normal Bowel Sounds, Non Tender, Soft Extremity: Normal Capillary Refill, No Calf Tenderness Neurologic/Psychiatric: Alert, Oriented x3, Normal Mood/Affect Skin: Normal Color, Warm/Dry Results Results/Procedures Labs Laboratory Tests 09/19/17 03:36 Patient resulted labs reviewed. Imaging: Reviewed Imaging Report Assessment/Plan Admission Diagnosis a-fib with RVR Admission Status: Inpatient Order (span 2 midnights) Reason for Inpatient Admission: ICu stay, cardizem gtt Diagnosis/Problems Diagnosis/Problems (1) Atrial fibrillation with RVR Status: Resolved Assessment & Plan: Continue Cardizem gtt Monitor on tele Will get TSH and UDS Cardiology consulted, appreciate recs Was on Sotalol and Coreg as an outpatient Defer to cardiology on resumption Eliquis for stroke ppx (2) Chest pain Status: Resolved Assessment & Plan: symptoms concerning for cardiac etiology but normal cath 2 days ago and troponins negative likely due to a-fib Qualifiers: Chest pain type: unspecified Qualified Codes: R07.9 - Chest pain, unspecified (3) Essential (primary) hypertension Status: Chronic Assessment & Plan: Well controlled currently on cardizem gtt Trend (4) Non-insulin dependent type 2 diabetes mellitus Status: Chronic Assessment & Plan: Well controlled trend (5) Prophylactic measure Status: Acute Assessment & Plan: diet Eliquis Saline lock Clinical Quality Measures AMI/AHF: ASA po Prior to arrival: Yes DVT/VTE Risk/Contraindication: Risk Factor Score Per Nursin RFS Level Per Nursing on Admit: 3=High MIRACLE MADRID MD September 18, 2017 09:06
[2017-09-18] MEDS: NS IV SCH ×2 (10:55)
[2017-09-18] MEDS: DILTIAZEM IV SCH ×2 (10:55)
--- NOTE | 2017-09-18 15:07 | Consultation-Cardiology ---
HPI-Cardiology Cardiology Consultation: Date of Consultation 09/18/17 Date of Admission Attending Physician Kelsea Madrid MD Admitting Physician No,Local Physician Consulting Physician Janet WONG MD HPI: Time Seen by Provider: 13:30 Chief Complaint: Chest pain, palpitations This is a 67-year-old lady who was recently admitted for wide complex tachycardia, hypotension, severe chest pain. She was taken emergently to the catheter lab on 09/15/2017. She did not have any significant CAD. She has history of a biventricular ICD. Device interrogation was performed which did not demonstrate any ICD shocks or antitachycardia pacing. She did have numerous episodes of atrial fibrillation. She has an underlying left bundle branch block therefore in atrial fibrillation the rhythm looks like ventricular tachycardia. Her LVEF was normal on echocardiogram and left ventriculogram. Atrial fibrillation was treated with IV amiodarone and Cardizem infusion. She was restarted on sotalol and an discharged on 09/16/2017. She presents with new-onset chest pain and shortness of breath. The pain is substernal and radiates to her left arm she also complains of nausea. He was found to have atrial fibrillation with rapid ventricular rate and was restarted on Cardizem and IV amiodarone. Review of Systems-Cardiology Review of Systems Constitutional: As described under HPI; No As described under HPI, No no symptoms reported, No chills, No fever, No lightheadedness Eyes: No As described under HPI, No no symptoms reported, No blindness, No blurred vision, No contact lenses, No drainage, No decreased acuity, No foreign body sensation, No pain, No vision change Ears/Nose/Throat: No As described under HPI, No no symptoms reported, No chronic hearing loss, No ear discharge, No ear pain, No nasal drainage, No ulcerations Respiratory: No no symptoms reported; As described under HPI; No As described under HPI, No cough, No orthopnea; shortness of breath; No SOB with excertion Cardiovascular: No no symptoms reported; As described under HPI; No As described under HPI; chest pain; No edema, No irregular heart rate, No lightheadedness; palpitations Gastrointestinal: No no symptoms reported, No As described under HPI, No abdomen distended, No abdominal pain, No blood streaked bowels, No constipation , No diarrhea, No nausea, No vomiting, No stool coloration changes Genitourinary: No As described under HPI, No burning, No dysuria, No discharge , No frequency, No flank pain, No hematuria, No urgency : Yes : No Musculoskeletal: No no symptoms reported, No As describe under HPI, No back pain, No gout, No joint pain, No joint swelling, No muscle pain, No muscle stiffness, No neck pain, No other Skin: No no symptoms reported, No As described under HPI, No change in color, No change in hair/nails, No dryness, No lesions, No lumps, No rash, No other, No skin related problems, No ulcerations, No rash on exposed areas, No ulcerations on exposed areas Psychiatric/Neurological: No anxiety, No depression, No seizure, No focal weakness, No syncope Hematologic: No no symptoms reported, No As described under HPI, No anemia, No blood clots, No easy bleeding, No easy bruising, No swollen glands, No other, No bleeding abnormalities All Other Systems Reviewed Negative Unless Noted: Yes [id number] Hx Patient Social History Employed/Student: employed Alcohol Use: Denies Use Recreational Drug Use: No Smoking Status: Never a Smoker 2nd Hand Smoke Exposure: No Recent Foreign Travel: No Recent Infectious Disease Expo: No Hospitalization with Isolation: Denies Physical Abuse Screen: No Sexual Abuse: No Immunizations Up To Date Date of Pneumonia Vaccine: Feb 17, 2017 Past Medical History PMH As described under Assessment. Allergies and Home Medications Allergies Coded Allergies: codeine (Verified Allergy, Unknown, 09/15/17) meperidine (Verified Allergy, Unknown, 09/15/17) morphine (Verified Allergy, Unknown, 09/15/17) Home Medications Apixaban 5 Mg Tablet, 5 MG PO BID Prescribed by: Janet WONG on 09/16/17 1501 Atorvastatin Calcium 20 Mg Tablet, 20 MG PO HS, (Reported) Carvedilol 25 Mg Tablet, 25 MG PO BID, (Reported) Ferrous Sulfate 325 Mg Tablet, 325 MG PO BID, (Reported) Furosemide 20 Mg Tablet, 20 MG PO DAILY, (Reported) Isosorbide Mononitrate 60 Mg Tab, 60 MG PO DAILY, (Reported) Ranitidine HCl 150 Mg Tablet, 150 MG PO BID, (Reported) Sotalol HCl 160 Mg Tablet, 160 MG PO BID, (Reported) Patient Home Medication List Home Medication List Reviewed: Yes Physical Exam-Cardiology Physical Exam Vital Signs/I&O 09/18/17 09/18/17 09/18/17 09/18/17 04:00 04:00 04:00 05:00 Temp 98.3 Pulse 80 106 Resp 13 19 B/P (MAP) 142/77 (98) Pulse Ox 100 97 100 O2 Delivery Room Air Room Air Room Air 09/18/17 09/18/17 09/18/17 09/18/17 06:00 07:00 07:00 07:00 Temp 97.8 Pulse 80 80 80 92 Resp 15 13 20 B/P (MAP) 150/78 (102) 148/81 (103) 128/76 (93) Pulse Ox 98 99 100 O2 Delivery Room Air Room Air Room Air 09/18/17 09/18/17 09/18/17 09/18/17 08:00 08:00 09:00 10:00 Pulse 80 61 103 Resp 24 12 29 B/P (MAP) 108/99 (102) 122/70 (87) 145/84 (104) Pulse Ox 100 98 97 100 O2 Delivery Room Air Room Air Room Air Room Air 09/18/17 09/18/17 09/18/17 09/18/17 11:00 12:00 12:00 13:00 Pulse 92 80 80 Resp 7 16 B/P (MAP) 129/83 (98) 155/82 (106) Pulse Ox 99 97 100 O2 Delivery Room Air Room Air Room Air 09/18/17 00:00 Intake Total 100 ml Balance 100 ml Capillary Refill : Less Than 3 Seconds Constitutional: appears stated age, AAO x 3; No apparent distress; well- developed, well-nourished HEENT: PERRL; No normal ENT inspection, No TMs normal, No pharynx normal, No scleral icterus (R), No scleral icterus (L), No pale conjunctivae (R), No pale conjunctivae (L), No photophobia, No TM abnormal (R), No TM abnormal (L), No pharyngeal erythema, No tonsillar exudate, No other, No discharge, No EOMI; hearing is well preserved; No hard of hearing; oral hygience is good; No ulceration, No xanthelasmas are seen Neck: No non-tender, No full range of motion, No supple, No normal inspection, No carotid bruit, No limited range of motion, No lymphadenopathy (R), No lymphadenopathy (L), No tender lateral, No tender midline, No thyromegaly, No other; carotid pulses are 2 + bilaterally; No with good upstrokes Respiratory: No accessory muscle use, No respiratory distress, No chest tender , No chest expansion is symmetric; chest is bilaterally symmetric; No lungs clear to percussion; lungs clear to auscultation; No crackles, No rhonchi, No rales, No stridor, No wheezing, No pleural rub, No other Cardiovascular: irregularly irregular, tachycardia, S1 and S2 Gastrointestinal: No tender, No soft, No round, No distended, No pulsatile mass , No organomegaly, No guarding, No rebound, No tenderness, No hernia, No mass, No audible bowel sounds, No abnormal bowel sounds, No abdominal bruits, No spleenomegaly, No other Rectal: deferred Extremities: No normal range of motion, No non-tender, No normal inspection, No pedal edema, No calf tenderness, No normal capillary refill, No pelvis stable , No calf tenderness, No inflammation, No pedal edema, No slow capillary refill , No swelling, No other, No abrasion, No clubbing, No cyanosis, No ecchymosis, No laceration, No no lower extremity edema bilateral, No significant edema, No tenderness, No wound Neurologic/Psychiatric: no motor/sensory deficits, alert, normal mood/affect, oriented x 3, power is 5/5 both on sides Skin: No normal color, No warm/dry, No cyanosis, No cool, No diaphoresis, No damp, No ecchymosis, No jaundice, No mottled, No pallor, No rash, No tattoos/ piercings, No ulcerations, No rash on exposed areas, No ulcerations on exposed areas, No other Data Review Labs Laboratory Tests 09/17/17 17:00: White Blood Count 9.5, Red Blood Count 4.23L, Hemoglobin 12.3, Hematocrit 37, Mean Corpuscular Volume 88, Mean Corpuscular Hemoglobin 29, Mean Corpuscular Hemoglobin Concent 33, Red Cell Distribution Width 13.9, Platelet Count 232, Mean Platelet Volume 10.2, Neutrophils (%) (Auto) 69, Lymphocytes (%) (Auto) 23 , Monocytes (%) (Auto) 6, Eosinophils (%) (Auto) 2, Basophils (%) (Auto) 0, Neutrophils # (Auto) 6.5, Lymphocytes # (Auto) 2.2, Monocytes # (Auto) 0.6, Eosinophils # (Auto) 0.2, Basophils # (Auto) 0.0, Prothrombin Time 13.3, INR Comment 1.0, Activated Partial Thromboplast Time 35, Sodium Level 143, Potassium Level 3.9, Chloride Level 114H, Carbon Dioxide Level 22, Anion Gap 7, Blood Urea Nitrogen 17, Creatinine 0.97, Estimat Glomerular Filtration Rate > 60 , BUN/Creatinine Ratio 18, Glucose Level 85, Calcium Level 9.6, Magnesium Level 2.0, Total Bilirubin 0.9, Aspartate Amino Transf (AST/SGOT) 37H, Alanine Aminotransferase (ALT/SGPT) 36, Alkaline Phosphatase 107, Myoglobin 43.2, Troponin I < 0.30, Total Protein 6.9, Albumin 4.0 09/17/17 22:50: Troponin I < 0.30 09/18/17 05:20: Sodium Level 136, Potassium Level 3.9, Chloride Level 110H, Carbon Dioxide Level 17L, Anion Gap 9, Blood Urea Nitrogen 32H, Creatinine 1.14, Estimat Glomerular Filtration Rate 57, BUN/Creatinine Ratio 28, Glucose Level 127H, Calcium Level 9.0, Magnesium Level 2.4, Total Bilirubin 0.8, Aspartate Amino Transf (AST/SGOT) 15, Alanine Aminotransferase (ALT/SGPT) 21, Alkaline Phosphatase 77, Total Protein 6.7, Albumin 4.0, Phosphorus Level 3.0, Triglycerides Level 69, Cholesterol Level 96, LDL Cholesterol Direct 51, VLDL Cholesterol 14, HDL Cholesterol 34L 09/18/17 07:11: White Blood Count 6.5, Red Blood Count 3.95L, Hemoglobin 11.5, Hematocrit 35, Mean Corpuscular Volume 88, Mean Corpuscular Hemoglobin 29, Mean Corpuscular Hemoglobin Concent 33, Red Cell Distribution Width 14.0, Platelet Count 206, Mean Platelet Volume 10.0, Neutrophils (%) (Auto) 63, Lymphocytes (%) (Auto) 26 , Monocytes (%) (Auto) 8, Eosinophils (%) (Auto) 4, Basophils (%) (Auto) 0, Neutrophils # (Auto) 4.1, Lymphocytes # (Auto) 1.7, Monocytes # (Auto) 0.5, Eosinophils # (Auto) 0.3, Basophils # (Auto) 0.0, Troponin I < 0.30, TSH [place] Testing 2.59 ECG Impression ECG Initial ECG Impression: Atrial Fibrillation w/RVR A/P-Cardiology Assessment/Admission Diagnosis Wide-complex tachycardia, Atrial fibrillation with rapid ventricular rate Hypertension History of PCI/CAD, History of biventricular ICD, Anxiety/panic disorder, Hyperlipidemia Plan chest pain with atrial fibrillation with rapid ventricular rate in a patient with previous history of CAD/PCI. Coronary angiography on 09/15/2017 showed patent stent in the RCA, no significant CAD. Normal LV function. Aortogram did not show any evidence of dissection or aneurysm. Patient continued to have chest pain and therefore chest CT angiography was done which did not show any pulmonary embolism or aortic dissection. Patient improved once atrial fibrillation is controlled. Currently on IV Cardizem. Will start by mouth Cardizem as well. Atrial fibrillation with rapid ventricular rate, paroxysmal. On Eliquis. Refractory to sotalol 160 mg twice a day. I will start multaq 400 mg twice a day with first dose tonight. Discontinue sotalol. We'll also add Cardizem in addition to carvedilol. If she continues to have difficult to control atrial fibrillation with severe symptoms, she may be a candidate with AV node ablation. She already has a biventricular ICD in place. History of PCI/CAD: Acute coronary syndrome ruled out. Continue aspirin. History of biventricular ICD: Functioning normally. Hyperlipidemia: Continue statin therapy. Excellent lipid profile. Anxiety/panic disorder: Will recommend anxiolytic therapy. Multiple medical and cardiac issues were addressed and discussed with the patient. Thank you for your consultation. Please call me if you have any questions. Lucila Wong MD, FACP, FACC, FSCAI, FHRS, CCDS Interventional Cardiology Cardiac Electrophysiology Vascular Medicine and Endovascular Interventions Clinical Quality Measures AMI/AHF: ASA po Prior to arrival: Yes DVT/VTE Risk/Contraindication: Risk Factor Score Per Nursin RFS Level Per Nursing on Admit: 3=High Janet WONG MD September 18, 2017 3:07 pm
[2017-09-18] MEDS ORDERED: APIX5TAB PO (15:30)
[2017-09-18] MEDS: DILTIAZEM 180 MG (CARDIZEM CD) CAP PO SCH (15:42)
[2017-09-18] MEDS: DRONEDARONE TABLET 400 MG TABLET PO SCH (21:35)
[2017-09-18] MEDS: CARVEDILOL 12.5 MG (COREG) TABLET PO SCH (21:35)
[2017-09-19] VITALS: BP 123/79
[2017-09-19 01:00] VITALS: BP 120/54
[2017-09-19 02:00] VITALS: BP 137/69
[2017-09-19 03:46] LABS: BASOPHILS % (AUTO) 0 % (0-10); EOSINOPHILS # (AUTO) 0.3 10^3/uL (0.0-0.3); EOSINOPHILS % (AUTO) 4 % (0-10); HEMATOCRIT 33 % (35-52); LYMPHOCYTES # (AUTO) 1.7 X 10^3 (1.0-4.0); LYMPHOCYTES % (AUTO) 29 % (12-44); MEAN CORPUSCULAR HEMOGLOBIN 29 PG (25-34); MEAN CORPUSCULAR HGB CONC 33 G/DL (32-36); MEAN CORPUSCULAR VOLUME 88 FL (80-99); MEAN PLATELET VOLUME 10.3 FL (7.4-10.4); MONOCYTES # (AUTO) 0.5 X 10^3 (0.0-1.0); MONOCYTES % (AUTO) 9 % (0-12); NEUTROPHILS # (AUTO) 3.3 X 10^3 (1.8-7.8); NEUTROPHILS % (AUTO) 57 % (42-75); PLATELET COUNT 213 10^3/uL (130-400); RED CELL DISTRIBUTION WIDTH 13.7 % (10.0-14.5); WHITE BLOOD COUNT 5.7 10^3/uL (4.3-11.0)
[2017-09-19 04:11] LABS: BUN/CREATININE RATIO 16; CALCIUM 8.5 MG/DL (8.5-10.1); CARBON DIOXIDE 20 MMOL/L (21-32); CHLORIDE 113 MMOL/L (98-107); CREATININE SERUM 0.76 MG/DL (0.60-1.30); GFR ESTIMATED > 60; GLUCOSE 97 MG/DL (70-105); MAGNESIUM 2.1 MG/DL (1.8-2.4); PHOSPHORUS 3.1 MG/DL (2.3-4.7); POTASSIUM 3.5 MMOL/L (3.6-5.0); SODIUM 140 MMOL/L (135-145)
[2017-09-19 05:00] VITALS: BP 155/81
[2017-09-19] MEDS: KCL 20 MEQ TAB (K-DUR) PO SCH (05:19)
[2017-09-19] MEDS: POTASSIUM CL 10MEQ/50ML IVPB 50 ML IV SCH (05:19)
[2017-09-19] MEDS: MAGNESIUM 1 GM/100 ML IVPB 100 ML IV SCH (05:19)
[2017-09-19 06:00] VITALS: BP 155/81
[2017-09-19 08:00] VITALS: BP 149/87
[2017-09-19] MEDS ORDERED: KCL 20 MEQ TAB (K-DUR) PO ONE (08:00)
[2017-09-19] MEDS: CARVEDILOL 12.5 MG (COREG) TABLET PO SCH (08:53)
[2017-09-19] MEDS: DRONEDARONE TABLET 400 MG TABLET PO SCH (08:53)
[2017-09-19] MEDS: APIXABAN 5 MG (ELIQUIS) TABLET PO SCH (08:53)
[2017-09-19] MEDS: ASPIRIN E.C. 325 MG (ECOTRIN) TABLET PO SCH (08:53)
[2017-09-19] MEDS: DILTIAZEM 180 MG (CARDIZEM CD) CAP PO SCH (08:53)
--- NOTE | 2017-09-19 09:39 | Discharge Summary-Hospitalist ---
Diagnosis/Chief Complaint Date of Admission September 18, 2017 at 10:05 Date of Discharge Discharge Date: September 19, 2017 Admission Diagnosis a-fib with RVR Discharge Diagnosis (1) Atrial fibrillation with RVR Status: Resolved Assessment & Plan: Continue Cardizem gtt Monitor on tele Will get TSH and UDS Cardiology consulted, appreciate recs Was on Sotalol and Coreg as an outpatient Defer to cardiology on resumption Eliquis for stroke ppx (2) Chest pain Status: Resolved Assessment & Plan: symptoms concerning for cardiac etiology but normal cath 2 days ago and troponins negative likely due to a-fib (3) Essential (primary) hypertension Status: Chronic Assessment & Plan: Well controlled currently on cardizem gtt Trend (4) Non-insulin dependent type 2 diabetes mellitus Status: Chronic (5) Prophylactic measure Status: Acute Assessment & Plan: HH diet Eliquis Saline lock Discharge Summary Discharge Physical Exam Allergies: Coded Allergies: codeine (Verified Allergy, Unknown, 09/15/17) meperidine (Verified Allergy, Unknown, 09/15/17) morphine (Verified Allergy, Unknown, 09/15/17) Vitals & I&Os Vital Signs Date Time Temp Pulse Resp B/P (MAP) Pulse Ox O2 Delivery O2 Flow Rate FiO2 09/19/17 08:00 97.9 88 20 149/87 (107) 100 Room Air 09/17/17 19:20 2.00 General Appearance: Alert, Oriented X3, Cooperative HEENT: Atraumatic, PERRLA Respiratory: Clear to Auscultation, Normal Air Movement Cardiovascular: Other (IRR) Neuro: Normal Gait, Normal Speech, Strength at 5/5 X4 Ext Psych/Mental Status: Mental Status NL, Mood NL Hospital Course Hospital course: Patient had an uneventful brief hospital course she was admitted for age a fibrillation with rapid ventricular response managed conservatively and cardiology was consulted. Medication changes were initiated by cardiology which were tolerated and overall patient felt good enough to go home but requests an anxiolytic to help with any type of anxiety EF atrial fibrillation sensation of palpitations occur. Her primary care providers Dr. Ibarra and she reports that he is no longer in network that she will pursue that for close follow-up there. Labs (last 24 hrs) Laboratory Tests 09/19/17 03:36: White Blood Count 5.7, Red Blood Count 3.80L, Hemoglobin 11.0L, Hematocrit 33L, Mean Corpuscular Volume 88, Mean Corpuscular Hemoglobin 29, Mean Corpuscular Hemoglobin Concent 33, Red Cell Distribution Width 13.7, Platelet Count 213, Mean Platelet Volume 10.3, Neutrophils (%) (Auto) 57, Lymphocytes (%) (Auto) 29 , Monocytes (%) (Auto) 9, Eosinophils (%) (Auto) 4, Basophils (%) (Auto) 0, Neutrophils # (Auto) 3.3, Lymphocytes # (Auto) 1.7, Monocytes # (Auto) 0.5, Eosinophils # (Auto) 0.3, Basophils # (Auto) 0.0, Sodium Level 140, Potassium Level 3.5L, Chloride Level 113H, Carbon Dioxide Level 20L, Anion Gap 7, Blood Urea Nitrogen 12, Creatinine 0.76, Estimat Glomerular Filtration Rate > 60, BUN/ Creatinine Ratio 16, Glucose Level 97, Calcium Level 8.5, Phosphorus Level 3.1, Magnesium Level 2.1 Patient resulted labs reviewed. Pending Labs Laboratory Tests 09/19/17 03:36: White Blood Count 5.7, Red Blood Count 3.80, Hemoglobin 11.0, Hematocrit 33, Mean Corpuscular Volume 88, Mean Corpuscular Hemoglobin 29, Mean Corpuscular Hemoglobin Concent 33, Red Cell Distribution Width 13.7, Platelet Count 213, Mean Platelet Volume 10.3, Neutrophils (%) (Auto) 57, Lymphocytes (%) (Auto) 29 , Monocytes (%) (Auto) 9, Eosinophils (%) (Auto) 4, Basophils (%) (Auto) 0, Neutrophils # (Auto) 3.3, Lymphocytes # (Auto) 1.7, Monocytes # (Auto) 0.5, Eosinophils # (Auto) 0.3, Basophils # (Auto) 0.0, Sodium Level 140, Potassium Level 3.5, Chloride Level 113, Carbon Dioxide Level 20, Anion Gap 7, Blood Urea Nitrogen 12, Creatinine 0.76, Estimat Glomerular Filtration Rate > 60, BUN/ Creatinine Ratio 16, Glucose Level 97, Calcium Level 8.5, Phosphorus Level 3.1, Magnesium Level 2.1 Imaging: Reviewed Imaging Report Discussion & Recommendations Discharge Planning: <30 minutes discharge planning Discharge Home Medications: Active Scripts Active Diltiazem 24Hr Cd (Diltiazem HCl) 180 Mg Cap.er.24h 180 Mg PO DAILY 90 Days Multaq (Dronedarone HCl) 400 Mg Tablet 400 Mg PO BID 60 Days Reported Eliquis (Apixaban) 5 Mg Tablet 5 Mg PO BID Isosorbide Mononitrate ER (Isosorbide Mononitrate) 60 Mg Tab 60 Mg PO DAILY Furosemide 20 Mg Tablet 20 Mg PO DAILY Ranitidine HCl 150 Mg Tablet 150 Mg PO BID Betapace (Sotalol HCl) 160 Mg Tablet 160 Mg PO BID Ferrous Sulfate 325 Mg Tablet 325 Mg PO BID Carvedilol 25 Mg Tablet 25 Mg PO BID Atorvastatin Calcium 20 Mg Tablet 20 Mg PO HS Instructions to patient/family Please see electronic discharge instructions given to patient. Clinical Quality Measures AMI/AHF: ASA po Prior to arrival: Yes DVT/VTE Risk/Contraindication: Risk Factor Score Per Nursin RFS Level Per Nursing on Admit: 3=High Problem Qualifiers (1) Chest pain: Chest pain type: unspecified Qualified Codes: R07.9 - Chest pain, unspecified ESTEVAN FREEMAN DO September 19, 2017 09:39
--- NOTE | 2017-09-19 09:55 | Cardiology Progress Note ---
Cardiology SOAP Progress Note Subjective: No further chest pain. Objective: I&O/Vital Signs 09/18/17 09/18/17 09/18/17 09/19/17 22:00 23:00 23:40 00:00 Temp 98.0 Pulse 80 61 62 Resp 20 20 13 B/P (MAP) 126/65 (85) 144/78 (100) 123/79 (94) Pulse Ox 98 97 98 98 O2 Delivery Room Air Room Air Room Air Room Air 09/19/17 09/19/17 09/19/17 09/19/17 01:00 01:00 02:00 03:00 Pulse 60 80 61 85 Resp 15 23 18 B/P (MAP) 120/54 (76) 137/69 (91) Pulse Ox 99 96 98 O2 Delivery Room Air Room Air Room Air 09/19/17 09/19/17 09/19/17 09/19/17 03:50 04:00 05:00 06:00 Pulse 64 80 107 Resp 14 14 12 B/P (MAP) 155/81 (105) 155/81 (105) Pulse Ox 98 99 99 100 O2 Delivery Room Air Room Air Room Air Room Air 09/19/17 08:00 Temp 97.9 Pulse 88 Resp 20 B/P (MAP) 149/87 (107) Pulse Ox 100 O2 Delivery Room Air 09/19/17 00:00 Intake Total 953 ml Output Total 1420 ml Balance -467 ml Weight (Pounds): 247 Weight (Ounces): 2.0 Weight (Calculated Kilograms): [id number] Constitutional: appears stated age, AAO x 3; No apparent distress; well- developed, well-nourished Respiratory: No accessory muscle use, No respiratory distress, No chest tender , No chest expansion is symmetric; chest is bilaterally symmetric; No lungs clear to percussion; lungs clear to auscultation; No crackles, No rhonchi, No rales, No stridor, No wheezing, No pleural rub, No other Cardiovascular: regular rate-rhythm, tachycardia, S1 and S2 Gastrointestional: No tender, No soft, No round, No distended, No pulsatile mass, No organomegaly, No guarding, No rebound, No tenderness, No hernia, No mass, No audible bowel sounds, No abnormal bowel sounds, No abdominal bruits, No spleenomegaly, No other Extremities: No normal range of motion, No non-tender, No normal inspection, No pedal edema, No calf tenderness, No normal capillary refill, No pelvis stable , No calf tenderness, No inflammation, No pedal edema, No slow capillary refill , No swelling, No other, No abrasion, No clubbing, No cyanosis, No ecchymosis, No laceration, No no lower extremity edema bilateral, No significant edema, No tenderness, No wound Neurologic/Psychiatric: no motor/sensory deficits, alert, normal mood/affect, oriented x 3, power is 5/5 both on sides Skin: No normal color, No warm/dry, No cyanosis, No cool, No diaphoresis, No damp, No ecchymosis, No jaundice, No mottled, No pallor, No rash, No tattoos/ piercings, No ulcerations, No rash on exposed areas, No ulcerations on exposed areas, No other Results/Procedures: Labs Laboratory Tests 09/19/17 03:36: White Blood Count 5.7, Red Blood Count 3.80L, Hemoglobin 11.0L, Hematocrit 33L, Mean Corpuscular Volume 88, Mean Corpuscular Hemoglobin 29, Mean Corpuscular Hemoglobin Concent 33, Red Cell Distribution Width 13.7, Platelet Count 213, Mean Platelet Volume 10.3, Neutrophils (%) (Auto) 57, Lymphocytes (%) (Auto) 29 , Monocytes (%) (Auto) 9, Eosinophils (%) (Auto) 4, Basophils (%) (Auto) 0, Neutrophils # (Auto) 3.3, Lymphocytes # (Auto) 1.7, Monocytes # (Auto) 0.5, Eosinophils # (Auto) 0.3, Basophils # (Auto) 0.0, Sodium Level 140, Potassium Level 3.5L, Chloride Level 113H, Carbon Dioxide Level 20L, Anion Gap 7, Blood Urea Nitrogen 12, Creatinine 0.76, Estimat Glomerular Filtration Rate > 60, BUN/ Creatinine Ratio 16, Glucose Level 97, Calcium Level 8.5, Phosphorus Level 3.1, Magnesium Level 2.1 A/P: Assessment/Dx: Wide-complex tachycardia, Atrial fibrillation with rapid ventricular rate Hypertension History of PCI/CAD, History of biventricular ICD, Anxiety/panic disorder, Hyperlipidemia Plan: chest pain with atrial fibrillation with rapid ventricular rate in a patient with previous history of CAD/PCI. Coronary angiography on 09/15/2017 showed patent stent in the RCA, no significant CAD. Normal LV function. Aortogram did not show any evidence of dissection or aneurysm. Patient continued to have chest pain and therefore chest CT angiography was done which did not show any pulmonary embolism or aortic dissection. Patient improved once atrial fibrillation is controlled. Currently on IV Cardizem. Will start by mouth Cardizem as well. Atrial fibrillation with rapid ventricular rate, paroxysmal. On Eliquis. Refractory to sotalol 160 mg twice a day. on multaq. Discontinue sotalol. We' ll also add Cardizem in addition to carvedilol. No further AF overnight. If she continues to have difficult to control atrial fibrillation with severe symptoms, she may be a candidate with AV node ablation. She already has a biventricular ICD in place. History of PCI/CAD: Acute coronary syndrome ruled out. Continue aspirin. History of biventricular ICD: Functioning normally. Hyperlipidemia: Continue statin therapy. Excellent lipid profile. Anxiety/panic disorder: Will recommend anxiolytic therapy. Multiple medical and cardiac issues were addressed and discussed with the patient. Follow up in my cardiology office in 7-10 days. Thank you for your consultation. Please call me if you have any questions. Lucila Wong MD, FACP, FACC, FSCAI, FHRS, CCDS Interventional Cardiology Cardiac Electrophysiology Vascular Medicine and Endovascular Interventions Clinical Quality Measures AMI/AHF: ASA po Prior to arrival: Yes Janet WONG MD September 19, 2017 9:55 am
[2017-09-19] MEDS ORDERED: DRON400T2 PO (09:58)
[2017-09-19] MEDS ORDERED: DILT180C90 PO (09:58)
[2017-09-19] MEDS ORDERED: ALPR0.25 PO (10:05)
== END 2017-09-19 11:45 | disposition home or self-care (01) | DRG 310 ==
LOC: EDUNIT# 16:38 → ER 16:39 → UNDOADMOB 18:49 → ICU 18:49 → INTOOBSV 09-18 10:05 → OBSVTOIN 09-18 10:05 → UNDODISIN 09-19 11:45
PROVIDERS: ADMIT Family Medicine; ATTEND Family Medicine
DX: I48.0 Paroxysmal atrial fibrillation (principal); R00.0 Tachycardia, unspecified; I44.7 Left bundle-branch block, unspecified; I25.10 Atherosclerotic heart disease of native coronary artery without angina pectoris; I10 Essential (primary) hypertension; E11.9 Type 2 diabetes mellitus without complications; E78.5 Hyperlipidemia, unspecified; F41.0 Panic disorder [episodic paroxysmal anxiety]; K21.9 Gastro-esophageal reflux disease without esophagitis; M54.9 Dorsalgia, unspecified; Z79.01 Long term (current) use of anticoagulants; Z95.5 Presence of coronary angioplasty implant and graft; Z95.810 Presence of automatic (implantable) cardiac defibrillator
CPT/HCPCS: 36415; 71045; 80048; 80053; 80061; 83735; 83874; 84100; 84443; 84484; 85025; 85610; 85730; 93005; 93041; 96365; 96366; 96372; 96375; G0378

== ENCOUNTER → 2017-09-28 | Outpatient (CLI) | payer OTHER, MEDICARE ==
[~2017-09-28] MED LIST changes: +ALPR0.25 PO; +DILT180C90 PO; +DRON400T2 PO
--- NOTE | 2017-09-30 19:37 | Diagnostic Imaging Report ---
INDICATION: Routine screening. COMPARISON: Comparison is made with prior outside mammogram from 10/04/2016. TECHNIQUE: 2D and 3D bilateral screening mammography was performed with computer-aided detection (CAD) system. FINDINGS: Both breasts are heterogeneously dense, limiting sensitivity of mammography. There are numerous circumscribed masses in both breasts, which appear stable and consistent with cysts. No spiculated mass or malignant appearing microcalcifications are seen. The axillae are unremarkable. IMPRESSION: No mammographic features suspicious for malignancy are identified. ACR BI-RADS Category 2: Benign findings. Result letter will be mailed to the patient. Note: At least 10% of breast cancer is not imaged by mammography. Dictated by: Dictated on workstation # [id number]
== END ==
LOC: RAD 14:57
PROVIDERS: ATTEND Internal Medicine Interventional Cardiology
DX: Z12.31 Encounter for screening mammogram for malignant neoplasm of breast (principal)
CPT/HCPCS: 77067

== ENCOUNTER → 2017-10-11 | Outpatient (CLI) | payer MEDICARE ==
--- NOTE | 2017-10-11 12:46 | Diagnostic Imaging Report ---
PROCEDURE: US Thyroid. TECHNIQUE: Multiple real-time grayscale images were obtained of the thyroid in various projections. INDICATION: Thyroid nodule noted on recent CT. COMPARISON: Comparison is made with CT chest study from 09/15/2017. FINDINGS: The right lobe of the thyroid measures 4.6 x 2.3 x 2.0 cm and the left lobe measures 4.0 x 2.0 x 1.5 cm. Both lobes are heterogeneous. There are multiple nodules bilaterally. Nodules on the left are less than 1 cm in size. There is a nodule in the isthmus measuring approximately 1.2 cm in size. There is a dominant solid nodule lower pole right lobe measuring 2.7 x 2.4 x 1.9 cm corresponding with the CT abnormality. IMPRESSION: Bilateral thyroid nodules. There is a dominant nodule in the lower pole right lobe corresponding with CT abnormality. Fine-needle aspiration could be performed. Dictated by: Dictated on workstation # [id number]
== END ==
LOC: RAD 12:08
PROVIDERS: ATTEND Internal Medicine Interventional Cardiology
DX: E04.2 Nontoxic multinodular goiter (principal)
CPT/HCPCS: 76536

== ENCOUNTER → 2017-11-18 | Outpatient (CLI) | payer MEDICARE ==
[~2017-11-18] VITALS: Ht 165.1 cm; Wt 112.0 kg
[~2017-11-18] MED LIST changes: +LIDOCAINE 1% INJ 20 ML 20 ML VIAL INJ ONE; +LIDOCAINE 1% INJ 20 ML 20 ML VIAL ONE
[2017-11-18 08:03] VITALS: BP 130/68
[2017-11-18 08:50] VITALS: BP 129/70
--- NOTE | 2017-11-18 12:06 | Diagnostic Imaging Report ---
Indication: Right thyroid nodule. Patient presents for ultrasound guided fine needle aspiration. The patient brought to the procedure room and placed on the table in the supine position. Ultrasound imaging over the right neck was performed, evaluated appropriate entry site. The skin of the right neck was prepped and draped in usual sterile fashion. A small amount of 1% lidocaine was utilized for local anesthesia. Procedure was difficult. A total of 2 passes were made into the solid nodule in the right lobe of the thyroid with a 25-gauge needle and final aspiration was performed, however, visualization was limited due to patient movement throughout the study as well as patient verbalization throughout the exam. Core biopsy could not be obtained due to the depth of the lesion and patient movement. Hemostasis was obtained using manual compression. Impression: Ultrasound-guided fine-needle aspiration of the right lobe thyroid dominant nodule. The procedure was limited due to patient movement and location of the nodule. Pathology results are currently pending. Dictated by: Dictated on workstation # [id number]
== END ==
LOC: RAD 08:01
PROVIDERS: ATTEND Surgery
DX: E04.1 Nontoxic single thyroid nodule (principal)
CPT/HCPCS: 76942

== ENCOUNTER → 2017-12-07 | Outpatient (CLI) | payer MEDICARE ==
[~2017-12-07] MED LIST changes: -LIDOCAINE 1% INJ 20 ML 20 ML VIAL INJ ONE; -LIDOCAINE 1% INJ 20 ML 20 ML VIAL ONE
== END ==
LOC: RT 14:19
PROVIDERS: ATTEND Internal Medicine Interventional Cardiology
DX: I48.91 Unspecified atrial fibrillation (principal); I25.10 Atherosclerotic heart disease of native coronary artery without angina pectoris; I10 Essential (primary) hypertension; E78.5 Hyperlipidemia, unspecified; E66.9 Obesity, unspecified; Z95.810 Presence of automatic (implantable) cardiac defibrillator

== ENCOUNTER → 2018-01-30 | Outpatient (CLI) | payer MEDICARE ==
--- NOTE | 2018-01-30 13:36 | Diagnostic Imaging Report ---
INDICATION: Lower back pain. History of kidney stones. COMPARISON: None. FINDINGS: Two supine radiographic views of the abdomen were obtained. Small bowel loops are nondistended. There is no large collection of free intraperitoneal air. Multiple pelvic phleboliths are noted. No other unexpected extraosseous calcifications or radiopaque foreign bodies are seen. Bony structures show no acute abnormalities. Degenerative changes of the bilateral hips and lower lumbar spine are noted. IMPRESSION: 1. Nonobstructive small bowel gas pattern. Dictated by: Dictated on workstation # [id number]
--- NOTE | 2018-01-30 15:57 | Diagnostic Imaging Report ---
INDICATION: Back pain. TIME OF EXAM: 1:07 PM FINDINGS: Curvature of the lumbar spine is normal. There is grade 1 spondylolisthesis of L4 on L5. Vertebral body heights are maintained. No acute compression fracture is seen. Generalized degenerative disc disease with variable disc space narrowing and marginal spurring is noted. There is significant facet arthropathy throughout the lumbar spine. Aorta is calcified. IMPRESSION: Spondylosis and facet arthropathy. No acute bony abnormality is detected. Dictated by: Dictated on workstation # [id number]
== END ==
LOC: RAD 11:51
PROVIDERS: ATTEND Family Medicine
DX: M47.816 Spondylosis without myelopathy or radiculopathy, lumbar region (principal); M46.86 Other specified inflammatory spondylopathies, lumbar region; Z87.442 Personal history of urinary calculi
CPT/HCPCS: 72100; 74018

== ENCOUNTER → 2018-09-14 | Outpatient (CLI) | payer MEDICARE | LOC: CARD 12:48 | PROVIDERS: ATTEND Internal Medicine Interventional Cardiology | DX: I48.0 Paroxysmal atrial fibrillation (principal); I42.9 Cardiomyopathy, unspecified; Z95.810 Presence of automatic (implantable) cardiac defibrillator | CPT/HCPCS: 93306 ==

== ENCOUNTER 2018-09-21 07:43 | Day surgery (SDC) | payer MEDICARE ==
[2018-09-21] VITALS (8 sets, daily range): BP systolic 128–155; BP diastolic 67–99
[~2018-09-21] VITALS: Ht 165.1 cm; Wt 112.0 kg
--- OUTSIDE RECORDS SUMMARY | 2018-09-21 07:45 | XMS REPORT | CCD ---
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 Unknown Has never used illegal drugs 09/29/2017 Allergies, Adverse Reactions, Alerts Substance Reaction Codes Entered Date Inactivated Date Status CODEINE RxNorm: 2670 09/29/2017 No Inactive Date Active demerol RxNorm: 200393 09/29/2017 No Inactive Date Active MORPHINE SULFATE RxNorm: 7052 09/29/2017 No Inactive Date Active Past Medical History Illness Codes Condition Status Onset Date Resolved Date Dysuria ICD-9: 788.1 ICD-10: R30.0 Active 2018 Unknown Essential (primary) hypertension ICD-9: 401.1 ICD-10: I10 Active 09/29/2017 Unknown Low back pain ICD-9: 724.2 ICD-10: M54.5 Active 09/29/2017 Unknown Paroxysmal atrial fibrillation ICD-9: 427.31 ICD-10: I48.0 Active 09/29/2017 Unknown Personal history of urinary calculi ICD-9: V13.01 ICD-10: Z87.442 Active 2018 Unknown Urinary tract infection, site not specified ICD-9: 599.0 ICD-10: N39.0 Active 2018 Unknown Diabetes Unknown Active 09/29/2017 Unknown Type 2 diabetes mellitus without complications ICD-9: 250.00 ICD-10: E11.9 Active 09/29/2017 Unknown Problems Condition Codes Effective Dates Condition Status Dysuria ICD-9: 788.1 ICD-10: R30.0 2018 Active Essential (primary) hypertension ICD-9: 401.1 ICD-10: I10 09/29/2017 Active Low back pain ICD-9: 724.2 ICD-10: M54.5 09/29/2017 Active Paroxysmal atrial fibrillation ICD-9: 427.31 ICD-10: I48.0 09/29/2017 Active Personal history of urinary calculi ICD-9: V13.01 ICD-10: Z87.442 2018 Active Urinary tract infection, site not specified ICD-9: 599.0 ICD-10: N39.0 2018 Active Diabetes Unknown 09/29/2017 Active Type 2 diabetes mellitus without complications ICD-9: 250.00 ICD-10: E11.9 09/29/2017 Active Medications Medication Codes Instructions Start Date Stop Date Status Fill Instructions lisinopril 20 mg tablet RxNorm: 448709 1 Tablet(s) PO daily 12/201807/15/2019 Active carvedilol 25 mg tablet RxNorm: 044845 1 Tablet(s) PO BID 07/2107/15/2019 Active furosemide 20 mg tablet RxNorm: 353286 1 Tablet(s) PO daily 12/201807/15/2019 Active Zantac 150 mg tablet RxNorm: 386213 1 Tablet(s) PO BID 201810/18/2018 Active ranitidine 150 mg capsule RxNorm: 763828 1 Capsule(s) PO BID 07/21/2018 Inactive isosorbide mononitrate ER 60 mg tablet,extended release 24 hr RxNorm: 359010 1 Tablet(s) PO daily 06/19/2018 06/13/2019 Active ranitidine 150 mg capsule RxNorm: 742698 1 Capsule(s) PO BID 07/20/2018 Inactive atorvastatin 20 mg tablet RxNorm: 723431 1 Tablet(s) PO QHS 08/201704/12/2019 Active furosemide 20 mg tablet RxNorm: 831258 1 Tablet(s) PO daily 08/201707/20/2018 Inactive carvedilol 25 mg tablet RxNorm: 323461 1 Tablet(s) PO BID 04/1807/20/2018 Inactive lisinopril 20 mg tablet RxNorm: 840146 1 Tablet(s) PO daily 08/201707/20/2018 Inactive isosorbide mononitrate ER 60 mg tablet,extended release 24 hr RxNorm: 060004 1 Tablet(s) PO daily 04/18/2018 06/18/2018 Inactive isosorbide mononitrate ER 60 mg tablet,extended release 24 hr RxNorm: 415403 1 Tablet(s) PO daily 03/21/2018 04/17/2018 Inactive carvedilol 25 mg tablet RxNorm: 650126 1 Tablet(s) PO BID 03/2104/17/2018 Inactive atorvastatin 20 mg tablet RxNorm: 775467 1 Tablet(s) PO QHS 05/201704/17/2018 Inactive furosemide 20 mg tablet RxNorm: 752038 1 Tablet(s) PO daily 05/201704/17/2018 Inactive atorvastatin 20 mg tablet RxNorm: 364045 1 Tablet(s) PO QHS 09/201703/15/2018 Inactive Keflex 500 mg capsule RxNorm: 174516 1 Capsule(s) PO QID 201701/31/2018 Inactive lisinopril 20 mg tablet RxNorm: 717153 1 Tablet(s) PO daily 09/201704/17/2018 Inactive lisinopril 20 mg tablet RxNorm: 356952 1 Tablet(s) PO daily 01/17/2018 Inactive Eliquis 5 mg tablet RxNorm: 3436905 1 Tablet(s) PO BID No Start Date Active Multaq 400 mg tablet RxNorm: 345497 1 Tablet(s) PO BID No Start Date Active alprazolam 0.25 mg tablet RxNorm: 113859 1 Tablet(s) PO Q6 as needed No Start Date Active ferrous sulfate 325 mg (65 mg iron) tablet RxNorm: 280280 1 Tablet(s) PO BID No Start Date Active Cartia XT 180 mg capsule,extended release RxNorm: 118029 1 Capsule(s) PO daily No Start Date Active furosemide 20 mg tablet RxNorm: 803441 1 Tablet(s) PO daily No Start Date 03/15/2018 Inactive atorvastatin 20 mg tablet RxNorm: 502527 1 Tablet(s) PO QHS No Start Date 02/16/2018 Inactive lisinopril 20 mg tablet RxNorm: 493077 1 Tablet(s) PO daily No Start Date 01/12/2018 Inactive ranitidine 150 mg capsule RxNorm: 125861 1 Capsule(s) PO BID No Start Date 05/11/2018 Inactive isosorbide mononitrate ER 60 mg tablet,extended release 24 hr RxNorm: 449143 1 Tablet(s) PO daily No Start Date 2017 Inactive carvedilol 25 mg tablet RxNorm: 200224 1 Tablet(s) PO BID No Start Date 03/20/2018 Inactive Medication Administered No Medication Administered data Immunizations Vaccine Codes Date Status Tetanus, Diptheria, Pertussis CVX: 113 completed Tetanus/Diptheria CVX: 113 08/15/2015 completed Assessments Condition Codes Effective Dates Dysuria ICD-10: R30.0 ICD-9: 788.1 2018 Paroxysmal atrial fibrillation ICD-10: I48.0 ICD-9: 427.31 2018 Urinary tract infection, site not specified ICD-10: N39.0 ICD-9: 599.0 2018 Essential (primary) hypertension ICD-10: I10 ICD-9: 401.1 2018 Low back pain ICD-10: M54.5 ICD-9: 724.2 2018 Personal history of urinary calculi ICD-10: Z87.442 ICD-9: V13.01 2018 Type 2 diabetes mellitus without complications ICD-10: E11.9 ICD-9: 250.00 09/29/2017 Reason For Visit Reason For Visit Effective Dates Notes low back pain 2018 low back pain 09/29/2017 Results Observation Observation Code Item Item Code Result Date Cbc With Differential Ord2 WBC 5.02 K/ul 04/10/2018 Cbc With Differential Ord2 RBC 3.88 M/ul 04/10/2018 Cbc With Differential Ord2 HGB 11.5 g/dl 04/10/2018 Cbc With Differential Ord2 HCT 36.2 % 04/10/2018 Cbc With Differential Ord2 Neut% 55.5 % 04/10/2018 Cbc With Differential Ord2 MCV 93.3 fl 04/10/2018 Cbc With Differential Ord2 Lymph% 29.9 % 04/10/2018 Cbc With Differential Ord2 MCH 29.6 pg 04/10/2018 Cbc With Differential Ord2 Yolo% 11.6 % 04/10/2018 Cbc With Differential Ord2 MCHC 31.8 pg 04/10/2018 Cbc With Differential Ord2 Eos% 2.8 % 04/10/2018 Cbc With Differential Ord2 PLT 222 K/ul 04/10/2018 Cbc With Differential Ord2 Baso% 0.2 % 04/10/2018 Cbc With Differential Ord2 RDW 14.0 % 04/10/2018 Cbc With Differential Ord2 Neut ABS# 2.79 K/ul 04/10/2018 Cbc With Differential Ord2 Lymph ABS# 1.50 K/ul 04/10/2018 Cbc With Differential Ord2 Y[place] ABS# 0.6 K/ul 04/10/2018 Cbc With Differential Ord2 Eos ABS# 0.1 K/ul 04/10/2018 Cbc With Differential Ord2 Baso ABS# 0.0 K/ul 04/10/2018 %Hba1C Xez785 % HbA1c 48429-2 5.4 % 04/10/2018 %Hba1C Fog349 Gluc Ave 108 mg/dL 04/10/2018 Tsh Ord6 TSH (3rd IS) 3.65 uIU/mL 03/01/2018 Lipid Ord30 CHOL 137 mg/dL 03/01/2018 Lipid Ord30 HDL 50.0 mg/dl 03/01/2018 Lipid Ord30 TRIG 75 mg/dL 03/01/2018 Lipid Ord30 LDL 72 mg/dL 03/01/2018 Lipid Ord30 C/HDL 2.7 Ratio 03/01/2018 Comp Metabolic Ylh206 NA 144 mEq/L 03/01/2018 Comp Metabolic Zyv655 K 3.6 mEq/L 03/01/2018 Comp Metabolic Hoh797 CL 111 mEq/L 03/01/2018 Comp Metabolic Cij039 CO2 23.0 mEq/L 03/01/2018 Comp Metabolic Sys841 ANION GAP 14 03/01/2018 Comp Metabolic Zos475 GLUCOSE 103 mg/dL 03/01/2018 Comp Metabolic Jsb876 Creat 0.9 mg/dL 03/01/2018 Comp Metabolic Pge584 eGFR 67 ml/min/1.73m2 03/01/2018 Comp Metabolic Tbs776 BUN 15 mg/dL 03/01/2018 Comp Metabolic Skw293 B/C Ratio 16.9 Ratio 03/01/2018 Comp Metabolic Rbl312 CALCIUM 9.4 mg/dL 03/01/2018 Comp Metabolic Luv973 ALK PHOS 85 U/L 03/01/2018 Comp Metabolic Tls004 AST(SGOT) 14 U/L 03/01/2018 Comp Metabolic Gvk206 ALT(SGPT) 12 U/L 03/01/2018 Comp Metabolic Oxu087 BILI T 0.9 mg/dL 03/01/2018 Comp Metabolic Yiy826 ALBUMIN 4.2 g/dL 03/01/2018 Comp Metabolic Eko579 TPRO 6.5 g/dL 03/01/2018 Comp Metabolic Zar640 GLOB 2.3 g/dL 03/01/2018 Comp Metabolic Oww258 A/G Ratio 1.8 Ratio 03/01/2018 Comp Metabolic Cvs667 Osmo 288 mOsmo 03/01/2018 Culture Urine [id number] URINE CULTURE SEE NOTES 01/30/2018 Culture Urine [id number] Continued Results 01/30/2018 Urine Culture Ucult Complete >100,000 col/ml aerobic growth sent to ref lab 01/26/2018 %Hba1C Leu854 % HbA1c 23158-4 5.6 % 09/30/2017 %Hba1C Tng651 Gluc Ave 114 mg/dL 09/30/2017 Review of Systems System Result Effective Dates Constitutional recent illness 2018 Constitutional No night sweats 2017 Constitutional No fatigue 2018 Constitutional No fever 2018 Constitutional No weight loss 2018 Eyes No eye pain 2018 Ears/Nose/Throat/Neck No dizziness 2017 Ears/Nose/Throat/Neck No hearing loss 04/2018 Ears/Nose/Throat/Neck No hoarseness 01/25 Ears/Nose/Throat/Neck No taste change 04/2018 Ears/Nose/Throat/Neck No tinnitus 2017 Ears/Nose/Throat/Neck No voice change 04/2018 Cardiovascular No claudication 2017 Cardiovascular No dyspnea 2018 Cardiovascular edema 2018 Cardiovascular exercise intolerance 01/25 Cardiovascular No fatigue 2018 Cardiovascular hypertension 2018 Cardiovascular No near-syncope/dizziness 2018 Cardiovascular orthopnea 2018 Cardiovascular palpitations 2018 Cardiovascular No paroxysmal nocturnal dyspnea 2018 Respiratory No asthma 2018 Respiratory No pleuritic pain 2018 Respiratory No productive sputum 2017 Respiratory No apneic events 2018 Respiratory No cough 2018 Respiratory No wheezing 2018 Gastrointestinal No constipation 2017 Gastrointestinal No dysphagia 2018 Gastrointestinal gastroesophageal reflux 2018 Gastrointestinal No nausea 2018 Genitourinary/Nephrology urinary urgency 2018 Genitourinary/Nephrology urinary frequency 2018 Musculoskeletal swelling 2018 Musculoskeletal back pain 2018 Neurologic pain, back 2018 Psychiatric No alcohol abuse 2018 Psychiatric No anxiety 2018 Psychiatric No depression 2018 Psychiatric No disturbances of thinking 2018 Endocrine weakness 2018 Endocrine weight gain 2018 Endocrine diabetes mellitus type 2 2017 Genitourinary/Nephrology dysuria 2017 Constitutional recent illness 09/29/2017 Constitutional No night sweats 2017 Constitutional No fever 09/29/2017 Constitutional No fatigue 09/29/2017 Constitutional No weight loss 09/29/2017 Eyes No eye pain 09/29/2017 Eyes eye floaters 09/29/2017 Eyes vision change 09/29/2017 Ears/Nose/Throat/Neck No dizziness 2017 Ears/Nose/Throat/Neck No hearing loss Ears/Nose/Throat/Neck No hoarseness 09/29 Ears/Nose/Throat/Neck snoring 09/29/2017 Ears/Nose/Throat/Neck No tinnitus 2017 Ears/Nose/Throat/Neck No taste change Ears/Nose/Throat/Neck No voice change Cardiovascular chest pain/pressure 2017 Cardiovascular No dyspnea 09/29/2017 Cardiovascular No claudication 2017 Cardiovascular edema 09/29/2017 Cardiovascular exercise intolerance 09/29 Cardiovascular No fatigue 09/29/2017 Cardiovascular hypertension 09/29/2017 Cardiovascular No near-syncope/dizziness 09/29/2017 Cardiovascular orthopnea 09/29/2017 Cardiovascular palpitations 09/29/2017 Cardiovascular No paroxysmal nocturnal dyspnea 09/29/2017 Respiratory No asthma 09/29/2017 Respiratory No pleuritic pain 09/29/2017 Respiratory No productive sputum 2017 Respiratory No apneic events 09/29/2017 Respiratory No cough 09/29/2017 Respiratory No wheezing 09/29/2017 Respiratory snoring 09/29/2017 Respiratory orthopnea 09/29/2017 Respiratory pedal edema 09/29/2017 Gastrointestinal No dysphagia 09/29/2017 Gastrointestinal No constipation 2017 Gastrointestinal diarrhea 09/29/2017 Gastrointestinal dyspepsia 09/29/2017 Gastrointestinal gastroesophageal reflux 09/29/2017 Gastrointestinal No nausea 09/29/2017 Genitourinary/Nephrology urinary urgency 09/29/2017 Genitourinary/Nephrology urinary frequency 09/29/2017 Musculoskeletal swelling 09/29/2017 Musculoskeletal back pain 09/29/2017 Musculoskeletal sciatica 09/29/2017 Dermatologic pigmentation change 2017 Dermatologic acrochordon (skin tags) Endocrine weight gain 09/29/2017 Endocrine diabetes mellitus type 2 2017 Endocrine hair loss 09/29/2017 Endocrine cold sensitivity 09/29/2017 Endocrine weakness 09/29/2017 Neurologic pain, back 09/29/2017 Neurologic neck pain 09/29/2017 Neurologic vision change 09/29/2017 Psychiatric No alcohol abuse 09/29/2017 Psychiatric No anxiety 09/29/2017 Psychiatric No depression 09/29/2017 Psychiatric No disturbances of thinking 09/29/2017 Hematologic/Lymphatic No venous thrombosis 09/29/2017 Hematologic/Lymphatic No pulmonary embolus 09/29/2017 Allergy/Immunology anaphylactoid reaction 09/29/2017 Physical Exam Exam Name System Name Item Name Status Result Effective Dates Notes Full Exam - General 1994 Constitutional general appearance Overall: well developed 2018 None Full Exam - General 1994 Constitutional general appearance Overall: in no acute distress 2018 None Full Exam - General 1994 Constitutional general appearance Overall: well nourished 2018 None Full Exam - General 1994 Eyes conjunctiva /eyelids Overall: conjunctiva clear 2018 None Full Exam - General 1994 Eyes pupils and irises Overall: pupils equal, round, reactive to light and accomodation 2018 None Full Exam - General 1994 Ears/Nose/Throat otoscopic exam Overall: external auditory canals clear 2018 None Full Exam - General 1994 Ears/Nose/Throat otoscopic exam Overall: tympanic membranes clear 2018 None Full Exam - General 1994 Ears/Nose/Throat oral cavity/pharynx/larynx Overall: oral mucosa clear 2018 None Full Exam - General 1994 Respiratory auscultation Overall: breath sounds clear bilaterally 2018 None Full Exam - General 1994 Respiratory respiratory effort/rhythm Overall: no retractions 2018 None Full Exam - General 1994 Respiratory respiratory effort/rhythm Overall: normal rate 2018 None Full Exam - General 1994 Abdomen abdominal exam Overall: no tenderness 2018 None Full Exam - General 1994 Abdomen abdominal exam Overall: normal bowel sounds 2018 None Full Exam - General 1994 Lymphatic neck nodes Overall: anterior cervical chain benign 2018 None Full Exam - General 1994 Lymphatic neck nodes Overall: posterior cervical chain benign 2018 None Full Exam - General 1994 Musculoskeletal head and neck Overall: head atraumatic 2018 None Full Exam - General 1994 Psychiatric orientation/consciousness Overall: oriented to person, place and time 2018 None Full Exam - General 1994 Musculoskeletal spine, ribs and pelvis Posture: lordosis 2018 None Full Exam - General 1994 Cardiovascular auscultation of heart Rate: regular rate 2018 None Full Exam - General 1994 Cardiovascular auscultation of heart Rhythm: irregularly irregular rhythm 2018 None Full Exam - General 1994 Cardiovascular auscultation of heart Systolic murmur: midsystolic 2018 None Full Exam - General 1994 Constitutional general appearance Overall: well developed 09/29/2017 None Full Exam - General 1994 Constitutional general appearance Overall: in no acute distress 09/29/2017 None Full Exam - General 1994 Constitutional general appearance Overall: well nourished 09/29/2017 None Full Exam - General 1994 Psychiatric orientation/consciousness Overall: oriented to person, place and time 09/29/2017 None Full Exam - General 1994 Neurologic cranial nerves Overall: crainial nerves 2 - 12 grossly intact 09/29/2017 None Full Exam - General 1994 Integument inspection of skin Overall: few scattered moles, no gross abnormalities 09/29/2017 None Full Exam - General 1994 Musculoskeletal head and neck Overall: head atraumatic 09/29/2017 None Full Exam - General 1994 Lymphatic neck nodes Overall: posterior cervical chain benign 09/29/2017 None Full Exam - General 1994 Lymphatic neck nodes Overall: anterior cervical chain benign 09/29/2017 None Full Exam - General 1994 Abdomen abdominal exam Overall: no tenderness 09/29/2017 None Full Exam - General 1994 Abdomen abdominal exam Overall: normal bowel sounds 09/29/2017 None Full Exam - General 1994 Cardiovascular auscultation of heart Overall: regular rate 09/29/2017 None Full Exam - General 1994 Cardiovascular auscultation of heart Overall: normal heart sounds 09/29/2017 None Full Exam - General 1994 Cardiovascular auscultation of heart Overall: no murmurs 09/29/2017 None Full Exam - General 1994 Respiratory respiratory effort/rhythm Overall: no retractions 09/29/2017 None Full Exam - General 1994 Respiratory respiratory effort/rhythm Overall: normal rate 09/29/2017 None Full Exam - General 1994 Respiratory auscultation Overall: breath sounds clear bilaterally 09/29/2017 None Full Exam - General 1994 Ears/Nose/Throat otoscopic exam Overall: external auditory canals clear 09/29/2017 None Full Exam - General 1994 Ears/Nose/Throat otoscopic exam Overall: tympanic membranes clear 09/29/2017 None Full Exam - General 1994 Ears/Nose/Throat oral cavity/pharynx/larynx Overall: oral mucosa clear 09/29/2017 None Full Exam - General 1994 Eyes conjunctiva /eyelids Overall: conjunctiva clear 09/29/2017 None Full Exam - General 1994 Eyes pupils and irises Overall: pupils equal, round, reactive to light and accomodation 09/29/2017 None Procedures Procedure Codes Date URINALYSIS NONAUTO W/O SCOPE CPT-4: 23753 2018 Vital Signs Date Vital 2018 Blood Pressure 1: 132/64 Code : 8480-6 BMI: 36.7 Code : 24211-0 Heart Rate 1 : 62 bpm Height: 5'8" SpO2: 96% Weight: 238 lbs 09/29/2017 Blood Pressure 1: 124/76 Code : 8480-6 BMI: 36.8 Code : 19184-2 Heart Rate 1 : 83 bpm Height: 5'8" SpO2: 98% Weight: 238 lbs 8 oz Functional Status No Functional Status data History of Present Illness Symptom Name Status Result Effective Date Notes low back pain Quality chronic 2018 None low back pain Quality intermittent 2018 None low back pain Onset and Resolution ongoing 2018 None low back pain Onset of Symptom 28 years ago 2018 None low back pain Limitation on Activities allows weight bearing activity 2018 None low back pain Severity mild 2018 None low back pain Frequency of Episodes on and off 2018 None low back pain Significant Medical Conditions obesity 2018 None low back pain Pertinent Findings female 2018 None hypertension Quality constant 2018 None hypertension Onset and Resolution ongoing 2018 None hypertension Onset of Symptom during adulthood 2018 None diabetes mellitus Onset of Symptom onset as an adult 2018 None low back pain Quality chronic 09/29/2017 None low back pain Quality intermittent 09/29/2017 None low back pain Onset and Resolution ongoing 09/29/2017 None low back pain Onset of Symptom 28 years ago 09/29/2017 None low back pain Limitation on Activities allows weight bearing activity 09/29/2017 None low back pain Severity mild 09/29/2017 None low back pain Frequency of Episodes on and off 09/29/2017 None low back pain Significant Medical Conditions obesity 09/29/2017 None low back pain Mechanism of injury unknown 09/29/2017 None low back pain Sports Participation not significant 09/29/2017 None low back pain Pertinent Findings female 09/29/2017 None Advance Directives No Advance Directive data Encounters Encounter Performer Location Codes Date [id number]) [id number] EST. PATIENT, LEVEL IV Diagnosis: Essential (primary) hypertension[ICD10: I10] Diagnosis: Low back pain[ICD10: M54.5] Diagnosis: Dysuria[ICD10: R30.0] Diagnosis: Personal history of urinary calculi[ICD10: Z87.442] Diagnosis: Paroxysmal atrial fibrillation[ICD10: I48.0] Diagnosis: Urinary tract infection, site not specified[ICD10: N39.0] [facility] CPT-4: 40222 2018 OFFICE VISIT, NEW - LEVEL 3 Diagnosis: Essential (primary) hypertension[ICD10: I10] Diagnosis: Type 2 diabetes mellitus without complications[ICD10: E11.9] Diagnosis: Low back pain[ICD10: M54.5] Diagnosis: Paroxysmal atrial fibrillation[ICD10: I48.0] [facility] CPT-4: 27849 09/29/2017 Plan of Care Planned Activity Notes Codes Status Date Visit Plan: Hypertension - well controlled - continue with current medications, continue with no added salt diet. Pt has been encouraged to exercise daily. The pt has been advised to call the office if there are any acute concerns about change in blood pressure readings at home. Atrial Fibrillation - pt on chronic anticoagulation and is currently rate controlled. The pt is to have labs done as appropriate to monitor medication levels and is to report if they start to feel as if their heart rate is becoming uncontrolled. Dysuria - Hx of Renal Calculi - kub ordered. UTI based on UA obtained today. - culture ordered - keflex rx sent to [facility]. 2018 App[facility]ment[facility] [phone] [id number] ([facility] min) Moderate 2018 Patient Education: Patient Medication Summary Completed 2018 Patient Education: Back Pain Completed 2018 Care Plan: X-RAY EXAM L-S SPINE 06/18 VWS LOINC : 85863-9 Pending 2018 Visit Plan: Hypertension - well controlled - continue with current medications, continue with no added salt diet. Pt has been encouraged to exercise daily. The pt has been advised to call the office if there are any acute concerns about change in blood pressure readings at home. Diabetes Mellitus - I have recommended for the patient to have follow up labs prior to the next office visit. The patient has been instructed to continue with current medications as previously directed, continue with regular FSBS monitoring to assure continued control of diabetes. Pt to call for any acute concerns, complaints, or if the blood glucose readings are starting to become less controlled. Low back pain-history of kidney stones-check UA Afib-on eliquis- managed by Dr Layne 09/29/2017 Appointment: Hayley Metcal[facility] [phone] [id number] [place] New Patient 09/29/2017 Patient Education: Patient Medication Summary Completed 09/29/2017 Instructions Comment . Hypertension - well controlled - continue with current medications, continue with no added salt diet. Pt has been encouraged to exercise daily. The pt has been advised to call the office if there are any acute concerns about change in blood pressure readings at home. Atrial Fibrillation - pt on chronic anticoagulation and is currently rate controlled. The pt is to have labs done as appropriate to monitor medication levels and is to report if they start to feel as if their heart rate is becoming uncontrolled. Dysuria - Hx of Renal Calculi - kub ordered. UTI based on UA obtained today. - culture ordered - keflex rx sent to [facility]. RECOMMEND PROBIOTIC TWICE DAILY FOR LOOSE STOOLS IF SYMPTOMS PERSIST CHECK UA -CALL IF BACK PAIN WORSENS CHECK HGB A1C . Hypertension - well controlled - continue with current medications, continue with no added salt diet. Pt has been encouraged to exercise daily. The pt has been advised to call the office if there are any acute concerns about change in blood pressure readings at home. Diabetes Mellitus - I have recommended for the patient to have follow up labs prior to the next office visit. The patient has been instructed to continue with current medications as previously directed, continue with regular FSBS monitoring to assure continued control of diabetes. Pt to call for any acute concerns, complaints, or if the blood glucose readings are starting to become less controlled. Low back pain-history of kidney stones-check UA Afib-on eliquis-managed by Dr Layne
--- OUTSIDE RECORDS SUMMARY | 2018-09-21 07:46 | XMS REPORT | CCD ---
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 Unknown Has never used illegal drugs 09/29/2017 Allergies, Adverse Reactions, Alerts Substance Reaction Codes Entered Date Inactivated Date Status CODEINE RxNorm: 2670 09/29/2017 No Inactive Date Active demerol RxNorm: 210583 09/29/2017 No Inactive Date Active MORPHINE SULFATE [...] Start Date Stop Date Status Fill Instructions isosorbide mononitrate ER 60 mg tablet,extended release 24 hr RxNorm: 753343 1 Tablet(s) PO daily 06/19/2018 06/13/2019 Active ranitidine 150 mg capsule RxNorm: 884371 1 Capsule(s) PO BID 09/08/2018 Active furosemide 20 mg tablet RxNorm: 569709 1 Tablet(s) PO daily 08/201704/12/2019 Active carvedilol 25 mg tablet RxNorm: 088777 1 Tablet(s) PO BID 04/1804/12/2019 Active lisinopril 20 mg tablet RxNorm: 986146 1 Tablet(s) PO daily 08/201704/12/2019 Active atorvastatin 20 mg tablet RxNorm: 967558 1 Tablet(s) PO QHS 08/201704/12/2019 Active isosorbide mononitrate ER 60 mg tablet,extended release 24 hr RxNorm: 406995 1 Tablet(s) PO daily 04/18/2018 06/18/2018 Inactive isosorbide mononitrate ER 60 mg tablet,extended release 24 hr RxNorm: 581411 1 Tablet(s) PO daily 03/21/2018 04/17/2018 Inactive carvedilol 25 mg tablet RxNorm: 344521 1 Tablet(s) PO BID 03/2104/17/2018 Inactive atorvastatin 20 mg tablet RxNorm: 588467 1 Tablet(s) PO QHS 05/201704/17/2018 Inactive furosemide 20 mg tablet RxNorm: 816526 1 Tablet(s) PO daily 05/201704/17/2018 Inactive atorvastatin 20 mg tablet RxNorm: 807973 1 Tablet(s) PO QHS 09/201703/15/2018 Inactive Keflex 500 mg capsule RxNorm: 358393 1 Capsule(s) PO QID 201701/31/2018 Inactive lisinopril 20 mg tablet RxNorm: 187533 1 Tablet(s) PO daily 09/201704/17/2018 Inactive lisinopril 20 mg tablet RxNorm: 118618 1 Tablet(s) PO daily 01/17/2018 Inactive Eliquis 5 mg tablet RxNorm: 3135281 1 Tablet(s) PO BID No Start Date Active Multaq 400 mg tablet RxNorm: 746412 1 Tablet(s) PO BID No Start Date Active alprazolam 0.25 mg tablet RxNorm: 952051 1 Tablet(s) PO Q6 as needed No Start Date Active ferrous sulfate 325 mg (65 mg iron) tablet RxNorm: 870199 1 Tablet(s) PO BID No Start Date Active Cartia XT 180 mg capsule,extended release RxNorm: 421678 1 Capsule(s) PO daily No Start Date Active furosemide 20 mg tablet RxNorm: 188285 1 Tablet(s) PO daily No Start Date 03/15/2018 Inactive atorvastatin 20 mg tablet RxNorm: 793826 1 Tablet(s) PO QHS No Start Date 02/16/2018 Inactive lisinopril 20 mg tablet RxNorm: 551641 1 Tablet(s) PO daily No Start Date 01/12/2018 Inactive ranitidine 150 mg capsule RxNorm: 833157 1 Capsule(s) PO BID No Start Date 05/11/2018 Inactive isosorbide mononitrate ER 60 mg tablet,extended release 24 hr RxNorm: 082317 1 Tablet(s) PO daily No Start Date 2017 Inactive carvedilol 25 mg tablet RxNorm: 239613 1 Tablet(s) PO BID No Start Date [...] 55.5 % 04/10/2018 Cbc With Differential Ord2 Lymph% 29.9 % 04/10/2018 Cbc With Differential Ord2 MCV 93.3 fl 04/10/2018 Cbc With Differential Ord2 MCH 29.6 pg 04/10/2018 Cbc With Differential Ord2 [place]% 11.6 % 04/10/2018 Cbc With Differential Ord2 MCHC 31.8 pg 04/10/2018 Cbc With Differential Ord2 Eos% 2.8 % 04/10/2018 Cbc With Differential Ord2 Baso% 0.2 % 04/10/2018 Cbc With Differential Ord2 PLT 222 K/ul 04/10/2018 Cbc With Differential Ord2 Neut ABS# 2.79 K/ul 04/10/2018 Cbc With Differential Ord2 RDW 14.0 % 04/10/2018 Cbc With Differential Ord2 Lymph ABS# 1.50 K/ul 04/10/2018 Cbc With Differential Ord2 [place] ABS# 0.6 K/ul 04/10/2018 Cbc With Differential Ord2 Eos ABS# 0.1 K/ul 04/10/2018 Cbc With Differential Ord2 Baso ABS# 0.0 K/ul 04/10/2018 %Hba1C Wmc387 % HbA1c 96009-7 5.4 % 04/10/2018 %Hba1C Axp794 Gluc Ave 108 mg/dL 04/10/2018 Tsh Ord6 TSH (3rd IS) 3.65 uIU/mL 03/01/2018 Lipid Ord30 CHOL 137 mg/dL 03/01/2018 Lipid Ord30 HDL 50.0 mg/dl 03/01/2018 Lipid Ord30 TRIG 75 mg/dL 03/01/2018 Lipid Ord30 LDL 72 mg/dL 03/01/2018 Lipid Ord30 C/HDL 2.7 Ratio 03/01/2018 Comp Metabolic Vuc888 NA 144 mEq/L 03/01/2018 Comp Metabolic Mla426 K 3.6 mEq/L 03/01/2018 Comp Metabolic Ukc825 CL 111 mEq/L 03/01/2018 Comp Metabolic Yew107 CO2 23.0 mEq/L 03/01/2018 Comp Metabolic Tix648 ANION GAP 14 03/01/2018 Comp Metabolic Ugk742 GLUCOSE 103 mg/dL 03/01/2018 Comp Metabolic Lna870 Creat 0.9 mg/dL 03/01/2018 Comp Metabolic Wsw573 eGFR 67 ml/min/1.73m2 03/01/2018 Comp Metabolic Wzc025 BUN 15 mg/dL 03/01/2018 Comp Metabolic Tjp030 B/C Ratio 16.9 Ratio 03/01/2018 Comp Metabolic Niw378 CALCIUM 9.4 mg/dL 03/01/2018 Comp Metabolic Dkq170 ALK PHOS 85 U/L 03/01/2018 Comp Metabolic Mcq544 AST(SGOT) 14 U/L 03/01/2018 Comp Metabolic Rdm153 ALT(SGPT) 12 U/L 03/01/2018 Comp Metabolic Uaa131 BILI T 0.9 mg/dL 03/01/2018 Comp Metabolic Vkc155 ALBUMIN 4.2 g/dL 03/01/2018 Comp Metabolic Urc474 TPRO 6.5 g/dL 03/01/2018 Comp Metabolic Rbr196 GLOB 2.3 g/dL 03/01/2018 Comp Metabolic Hxl762 A/G Ratio 1.8 Ratio 03/01/2018 Comp Metabolic Ing492 Osmo 288 mOsmo 03/01/2018 Culture Urine [id number] URINE CULTURE SEE NOTES 01/30/2018 Culture Urine [id number] Continued Results 01/30/2018 Urine Culture Ucult Complete >100,000 col/ml aerobic growth sent to ref lab 01/26/2018 %Hba1C Ytg483 % HbA1c 14409-6 5.6 % 09/30/2017 %Hba1C Izi176 Gluc Ave 114 mg/dL 09/30/2017 Review of [...] Codes Date URINALYSIS NONAUTO W/O SCOPE CPT-4: 09211 2018 Vital Signs Date Vital 2018 Blood Pressure 1: 132/64 Code : 8480-6 BMI: 36.7 Code : 93373-0 Heart Rate 1 : 62 bpm Height: 5'8" SpO2: 96% Weight: 238 lbs 09/29/2017 Blood Pressure 1: 124/76 Code : 8480-6 BMI: 36.8 Code : 36198-0 Heart Rate 1 : 83 bpm Height: [...] data Encounters Encounter Performer Location Codes Date () [address]322 EST. PATIENT, LEVEL IV Diagnosis: Essential (primary) hypertension[ICD10: I10] Diagnosis: Low back pain[ICD10: M54.5] Diagnosis: Dysuria[ICD10: R30.0] Diagnosis: Personal history of urinary calculi[ICD10: Z87.442] Diagnosis: Paroxysmal atrial fibrillation[ICD10: I48.0] Diagnosis: Urinary tract infection, site not specified[ICD10: N39.0] [facility] CPT-4: 24184 2018 OFFICE VISIT, NEW - LEVEL 3 Diagnosis: Essential (primary) hypertension[ICD10: I10] Diagnosis: Type 2 diabetes mellitus without complications[ICD10: E11.9] Diagnosis: Low back pain[ICD10: M54.5] Diagnosis: Paroxysmal atrial fibrillation[ICD10: I48.0] [facility] CPT-4: 27118 09/29/2017 Plan of Care Planned Activity Notes [...] culture ordered - keflex rx sent to [facility]. 2018 Appointment: [facility]el[facility] [phone] [id number] (15 min) Moderate 2018 Patient Education: Patient Medication Summary Completed 2018 Patient Education: Back Pain Completed 2018 Care Plan: X-RAY EXAM L-S SPINE 2/3 VWS LOINC : 30819-2 Pending 2018 Visit Plan: Hypertension - well [...] Layne 09/29/2017 Appointment: Hayley Metcalf [facility]Ptel: [phone] [facility] [place] [place] [address] New Patient 09/29/2017 Patient Education: Patient Medication [...] culture ordered - keflex rx sent to [facility]. RECOMMEND PROBIOTIC TWICE DAILY FOR LOOSE [...]
--- OUTSIDE RECORDS SUMMARY | 2018-09-21 07:46 | XMS REPORT | CCD ---
Author Author Hayley Metcalf MD, [facility] Address [address] [place] [address] Phone Care Team Providers Care Teacher Education Instructor Name Role Phone PP Unavailable CCM Unavailable Summary Purpose Interface Exchange Insurance Providers Payer name Policy type / Coverage type Covered green party ID Effective Begin Date Effective End Date ADVANTRA Commercial Insurance [id number] 2017 Unknown Family history Mother Diagnosis Age At Onset Diabetes mellitus Type 2 Unknown Hypertension Unknown Colon cancer Unknown Alcoholism Unknown Hyperlipidemia Unknown Social History Social History Element Codes Description Effective Dates Marital status Unknown González 09/29/2017 Number of children Unknown 3 09/29/[address]: 696645563 Never smoker 09/29/[address]: 504394778 Never drinks alcohol 09/29/2017 Has the patient ever used illegal drugs? Unknown Has never used illegal drugs 09/29/2017 Allergies, Adverse Reactions, Alerts Substance Reaction Codes Entered Date Inactivated Date Status CODEINE RxNorm: 2670 09/29/2017 No Inactive Date Active demerol RxNorm: 124584 09/29/2017 No Inactive Date Active MORPHINE SULFATE [...] Fill Instructions lisinopril 20 mg tablet RxNorm: 797857 1 Tablet(s) PO daily 12/201807/15/2019 Active ranitidine 150 mg capsule RxNorm: 548936 1 Capsule(s) PO BID 07/15/2019 Active carvedilol 25 mg tablet RxNorm: 326722 1 Tablet(s) PO BID 07/2107/15/2019 Active furosemide 20 mg tablet RxNorm: 653113 1 Tablet(s) PO daily 12/201807/15/2019 Active isosorbide mononitrate ER 60 mg tablet,extended release 24 hr RxNorm: 790795 1 Tablet(s) PO daily 06/19/2018 06/13/2019 Active ranitidine 150 mg capsule RxNorm: 942100 1 Capsule(s) PO BID 07/20/2018 Inactive atorvastatin 20 mg tablet RxNorm: 016230 1 Tablet(s) PO QHS 08/201704/12/2019 Active furosemide 20 mg tablet RxNorm: 180235 1 Tablet(s) PO daily 08/201707/20/2018 Inactive carvedilol 25 mg tablet RxNorm: 297236 1 Tablet(s) PO BID 04/1807/20/2018 Inactive lisinopril 20 mg tablet RxNorm: 524563 1 Tablet(s) PO daily 08/201707/20/2018 Inactive isosorbide mononitrate ER 60 mg tablet,extended release 24 hr RxNorm: 143358 1 Tablet(s) PO daily 04/18/2018 06/18/2018 Inactive isosorbide mononitrate ER 60 mg tablet,extended release 24 hr RxNorm: 012225 1 Tablet(s) PO daily 03/21/2018 04/17/2018 Inactive carvedilol 25 mg tablet RxNorm: 452726 1 Tablet(s) PO BID 03/2104/17/2018 Inactive atorvastatin 20 mg tablet RxNorm: 378112 1 Tablet(s) PO QHS 05/201704/17/2018 Inactive furosemide 20 mg tablet RxNorm: 784391 1 Tablet(s) PO daily 05/201704/17/2018 Inactive atorvastatin 20 mg tablet RxNorm: 200526 1 Tablet(s) PO QHS 09/201703/15/2018 Inactive Keflex 500 mg capsule RxNorm: 437133 1 Capsule(s) PO QID 201701/31/2018 Inactive lisinopril 20 mg tablet RxNorm: 864847 1 Tablet(s) PO daily 09/201704/17/2018 Inactive lisinopril 20 mg tablet RxNorm: 819669 1 Tablet(s) PO daily 01/17/2018 Inactive Eliquis 5 mg tablet RxNorm: 3849947 1 Tablet(s) PO BID No Start Date Active Multaq 400 mg tablet RxNorm: 410810 1 Tablet(s) PO BID No Start Date Active alprazolam 0.25 mg tablet RxNorm: 393971 1 Tablet(s) PO Q6 as needed No Start Date Active ferrous sulfate 325 mg (65 mg iron) tablet RxNorm: 936609 1 Tablet(s) PO BID No Start Date Active Cartia XT 180 mg capsule,extended release RxNorm: 281777 1 Capsule(s) PO daily No Start Date Active furosemide 20 mg tablet RxNorm: 028633 1 Tablet(s) PO daily No Start Date 03/15/2018 Inactive atorvastatin 20 mg tablet RxNorm: 518615 1 Tablet(s) PO QHS No Start Date 02/16/2018 Inactive lisinopril 20 mg tablet RxNorm: 743167 1 Tablet(s) PO daily No Start Date 01/12/2018 Inactive ranitidine 150 mg capsule RxNorm: 197271 1 Capsule(s) PO BID No Start Date 05/11/2018 Inactive isosorbide mononitrate ER 60 mg tablet,extended release 24 hr RxNorm: 685802 1 Tablet(s) PO daily No Start Date 2017 Inactive carvedilol 25 mg tablet RxNorm: 284914 1 Tablet(s) PO BID No Start Date [...] 29.6 pg 04/10/2018 Cbc With Differential Ord2 [place]% 11.6 % 04/10/2018 Cbc With Differential Ord2 [...] 1.50 K/ul 04/10/2018 Cbc With Differential Ord2 [place] ABS# 0.6 K/ul 04/10/2018 Cbc With Differential Ord2 Eos ABS# 0.1 K/ul 04/10/2018 Cbc With Differential Ord2 Baso ABS# 0.0 K/ul 04/10/2018 %Hba1C Hno215 % HbA1c 04992-7 5.4 % 04/10/2018 %Hba1C Wnp689 Gluc Ave 108 mg/dL 04/10/2018 Tsh Ord6 TSH (3rd IS) 3.65 uIU/mL 03/01/2018 Lipid Ord30 CHOL 137 mg/dL 03/01/2018 Lipid Ord30 HDL 50.0 mg/dl 03/01/2018 Lipid Ord30 TRIG 75 mg/dL 03/01/2018 Lipid Ord30 LDL 72 mg/dL 03/01/2018 Lipid Ord30 C/HDL 2.7 Ratio 03/01/2018 Comp Metabolic Qvp004 NA 144 mEq/L 03/01/2018 Comp Metabolic Lcp100 K 3.6 mEq/L 03/01/2018 Comp Metabolic Ews256 CL 111 mEq/L 03/01/2018 Comp Metabolic Fjp592 CO2 23.0 mEq/L 03/01/2018 Comp Metabolic Xao950 ANION GAP 14 03/01/2018 Comp Metabolic Tnm909 GLUCOSE 103 mg/dL 03/01/2018 Comp Metabolic Vdb754 Creat 0.9 mg/dL 03/01/2018 Comp Metabolic Mts394 eGFR 67 ml/min/1.73m2 03/01/2018 Comp Metabolic Gkc635 BUN 15 mg/dL 03/01/2018 Comp Metabolic Bxu039 B/C Ratio 16.9 Ratio 03/01/2018 Comp Metabolic Uib267 CALCIUM 9.4 mg/dL 03/01/2018 Comp Metabolic Gxh935 ALK PHOS 85 U/L 03/01/2018 Comp Metabolic Tsn320 AST(SGOT) 14 U/L 03/01/2018 Comp Metabolic Wmq209 ALT(SGPT) 12 U/L 03/01/2018 Comp Metabolic Jqr343 BILI T 0.9 mg/dL 03/01/2018 Comp Metabolic Lta557 ALBUMIN 4.2 g/dL 03/01/2018 Comp Metabolic Vdf509 TPRO 6.5 g/dL 03/01/2018 Comp Metabolic Mwv323 GLOB 2.3 g/dL 03/01/2018 Comp Metabolic Geq251 A/G Ratio 1.8 Ratio 03/01/2018 Comp Metabolic Yha936 Osmo 288 mOsmo 03/01/2018 Culture Urine [id number] URINE CULTURE SEE NOTES 01/30/2018 Culture Urine [id number] Continued Results 01/30/2018 Urine Culture Ucult Complete >100,000 col/ml aerobic growth sent to ref lab 01/26/2018 %Hba1C Khs808 % HbA1c 05330-7 5.6 % 09/30/2017 %Hba1C Hlq349 Gluc Ave 114 mg/dL 09/30/2017 Review of [...] Codes Date URINALYSIS NONAUTO W/O SCOPE CPT-4: 20588 2018 Vital Signs Date Vital 2018 Blood Pressure 1: 132/64 Code : 8480-6 BMI: 36.7 Code : 64363-4 Heart Rate 1 : 62 bpm Height: 5'8" SpO2: 96% Weight: 238 lbs 09/29/2017 Blood Pressure 1: 124/76 Code : 8480-6 BMI: 36.8 Code : 11547-5 Heart Rate 1 : 83 bpm Height: [...] data Encounters Encounter Performer Location Codes Date [address] EST. PATIENT, LEVEL IV Diagnosis: Essential (primary) hypertension[ICD10: I10] Diagnosis: Low back pain[ICD10: M54.5] Diagnosis: Dysuria[ICD10: R30.0] Diagnosis: Personal history of urinary calculi[ICD10: Z87.442] Diagnosis: Paroxysmal atrial fibrillation[ICD10: I48.0] Diagnosis: Urinary tract infection, site not specified[ICD10: N39.0] [facility] CPT-4: 60753 2018 OFFICE VISIT, NEW - LEVEL 3 Diagnosis: Essential (primary) hypertension[ICD10: I10] Diagnosis: Type 2 diabetes mellitus without complications[ICD10: E11.9] Diagnosis: Low back pain[ICD10: M54.5] Diagnosis: Paroxysmal atrial fibrillation[ICD10: I48.0] [facility] CPT-4: 73088 09/29/2017 Plan of Care Planned Activity Notes [...] culture ordered - keflex rx sent to [facility]. 2018 Appointment: [facility]atelynn [facility]Ptel[facility] [phone] [facility] [id number] (15 min) Moderate 2018 Patient Education: Patient Medication Summary Completed 2018 Patient Education: Back Pain Completed 2018 Care Plan: X-RAY EXAM L-S SPINE 2/3 VWS LOINC : 32742-2 Pending 2018 Visit Plan: Hypertension - well [...] Layne 09/29/2017 Appointment: Hayley Metcalf WPtel: [phone] [facility] New Patient 09/29/2017 Patient Education: Patient Medication [...] culture ordered - keflex rx sent to [facility]. RECOMMEND PROBIOTIC TWICE DAILY FOR LOOSE [...]
[2018-09-21] MEDS ORDERED: NS IV 1000 ML 1,000 ML ONE (07:47)
--- OUTSIDE RECORDS SUMMARY | 2018-09-21 07:47 | XMS REPORT | CCD ---
Author Author Hayley Metcalf MD, [facility] Address [address] [place] [address] Phone Care Team Providers Care Dishroom Attendant Name Role Phone PP Unavailable CCM Unavailable Summary Purpose Interface Exchange Insurance Providers Payer name Policy type / Coverage type Covered alliance party ID Effective Begin Date Effective End Date ADVANTRA Commercial Insurance [id number] 2017 Unknown Family history Mother Diagnosis Age At Onset Diabetes mellitus Type 2 Unknown Hypertension Unknown Colon cancer Unknown Alcoholism Unknown Hyperlipidemia Unknown Social History Social History Element Codes Description Effective Dates Marital status Unknown González 09/29/2017 Number of children Unknown 3 09/29/[address]: 767630392 Never smoker 09/29/[address]: 453044899 Never drinks alcohol 09/29/2017 Has the patient ever used illegal drugs? Unknown Has never used illegal drugs 09/29/2017 Allergies, Adverse Reactions, Alerts Substance Reaction Codes Entered Date Inactivated Date Status CODEINE RxNorm: 2670 09/29/2017 No Inactive Date Active demerol RxNorm: 029162 09/29/2017 No Inactive Date Active MORPHINE SULFATE [...] Start Date Stop Date Status Fill Instructions furosemide 20 mg tablet RxNorm: 276148 1 Tablet(s) PO daily 08/201704/12/2019 Active carvedilol 25 mg tablet RxNorm: 843696 1 Tablet(s) PO BID 04/1804/12/2019 Active lisinopril 20 mg tablet RxNorm: 340804 1 Tablet(s) PO daily 08/201704/12/2019 Active isosorbide mononitrate ER 60 mg tablet,extended release 24 hr RxNorm: 608245 1 Tablet(s) PO daily 04/18/2018 04/12/2019 Active atorvastatin 20 mg tablet RxNorm: 417064 1 Tablet(s) PO QHS 08/201704/12/2019 Active isosorbide mononitrate ER 60 mg tablet,extended release 24 hr RxNorm: 202919 1 Tablet(s) PO daily 03/21/2018 04/17/2018 Inactive carvedilol 25 mg tablet RxNorm: 684626 1 Tablet(s) PO BID 03/2104/17/2018 Inactive atorvastatin 20 mg tablet RxNorm: 082967 1 Tablet(s) PO QHS 05/201704/17/2018 Inactive furosemide 20 mg tablet RxNorm: 070441 1 Tablet(s) PO daily 05/201704/17/2018 Inactive atorvastatin 20 mg tablet RxNorm: 371046 1 Tablet(s) PO QHS 09/201703/15/2018 Inactive Keflex 500 mg capsule RxNorm: 558370 1 Capsule(s) PO QID 201701/31/2018 Inactive lisinopril 20 mg tablet RxNorm: 294130 1 Tablet(s) PO daily 09/201704/17/2018 Inactive lisinopril 20 mg tablet RxNorm: 751020 1 Tablet(s) PO daily 01/17/2018 Inactive Eliquis 5 mg tablet RxNorm: 5021570 1 Tablet(s) PO BID No Start Date Active Multaq 400 mg tablet RxNorm: 185873 1 Tablet(s) PO BID No Start Date Active alprazolam 0.25 mg tablet RxNorm: 695942 1 Tablet(s) PO Q6 as needed No Start Date Active ferrous sulfate 325 mg (65 mg iron) tablet RxNorm: 598832 1 Tablet(s) PO BID No Start Date Active Cartia XT 180 mg capsule,extended release RxNorm: 218590 1 Capsule(s) PO daily No Start Date Active ranitidine 150 mg capsule RxNorm: 065637 1 Capsule(s) PO BID No Start Date Active furosemide 20 mg tablet RxNorm: 136266 1 Tablet(s) PO daily No Start Date 03/15/2018 Inactive atorvastatin 20 mg tablet RxNorm: 082085 1 Tablet(s) PO QHS No Start Date 02/16/2018 Inactive lisinopril 20 mg tablet RxNorm: 097715 1 Tablet(s) PO daily No Start Date 01/12/2018 Inactive isosorbide mononitrate ER 60 mg tablet,extended release 24 hr RxNorm: 513228 1 Tablet(s) PO daily No Start Date 2017 Inactive carvedilol 25 mg tablet RxNorm: 987438 1 Tablet(s) PO BID No Start Date [...] 29.6 pg 04/10/2018 Cbc With Differential Ord2 [place]% 11.6 % 04/10/2018 Cbc With Differential Ord2 [...] 1.50 K/ul 04/10/2018 Cbc With Differential Ord2 [place] ABS# 0.6 K/ul 04/10/2018 Cbc With Differential Ord2 Eos ABS# 0.1 K/ul 04/10/2018 Cbc With Differential Ord2 Baso ABS# 0.0 K/ul 04/10/2018 %Hba1C Vyq089 % HbA1c 14154-0 5.4 % 04/10/2018 %Hba1C Mez193 Gluc Ave 108 mg/dL 04/10/2018 Tsh Ord6 TSH (3rd IS) 3.65 uIU/mL 03/01/2018 Lipid Ord30 CHOL 137 mg/dL 03/01/2018 Lipid Ord30 HDL 50.0 mg/dl 03/01/2018 Lipid Ord30 TRIG 75 mg/dL 03/01/2018 Lipid Ord30 LDL 72 mg/dL 03/01/2018 Lipid Ord30 C/HDL 2.7 Ratio 03/01/2018 Comp Metabolic Zxa351 NA 144 mEq/L 03/01/2018 Comp Metabolic Pkx698 K 3.6 mEq/L 03/01/2018 Comp Metabolic Tns494 CL 111 mEq/L 03/01/2018 Comp Metabolic Oql676 CO2 23.0 mEq/L 03/01/2018 Comp Metabolic Tna859 ANION GAP 14 03/01/2018 Comp Metabolic Hzf330 GLUCOSE 103 mg/dL 03/01/2018 Comp Metabolic Vyc452 Creat 0.9 mg/dL 03/01/2018 Comp Metabolic Ile107 eGFR 67 ml/min/1.73m2 03/01/2018 Comp Metabolic Hrx884 BUN 15 mg/dL 03/01/2018 Comp Metabolic Xpq433 B/C Ratio 16.9 Ratio 03/01/2018 Comp Metabolic Myp096 CALCIUM 9.4 mg/dL 03/01/2018 Comp Metabolic Mty970 ALK PHOS 85 U/L 03/01/2018 Comp Metabolic Skf879 AST(SGOT) 14 U/L 03/01/2018 Comp Metabolic Qzr955 ALT(SGPT) 12 U/L 03/01/2018 Comp Metabolic Ebs340 BILI T 0.9 mg/dL 03/01/2018 Comp Metabolic Xzu354 ALBUMIN 4.2 g/dL 03/01/2018 Comp Metabolic Wiu062 TPRO 6.5 g/dL 03/01/2018 Comp Metabolic Ale033 GLOB 2.3 g/dL 03/01/2018 Comp Metabolic Mxi700 A/G Ratio 1.8 Ratio 03/01/2018 Comp Metabolic Quq874 Osmo 288 mOsmo 03/01/2018 Culture Urine [id number] URINE CULTURE SEE NOTES 01/30/2018 Culture Urine [id number] Continued Results 01/30/2018 Urine Culture Ucult Complete >100,000 col/ml aerobic growth sent to ref lab 01/26/2018 %Hba1C Avt949 % HbA1c 22666-7 5.6 % 09/30/2017 %Hba1C Zcv032 Gluc Ave 114 mg/dL 09/30/2017 Review of [...] Codes Date URINALYSIS NONAUTO W/O SCOPE CPT-4: 76585 2018 Vital Signs Date Vital 2018 Blood Pressure 1: 132/64 Code : 8480-6 BMI: 36.7 Code : 48705-6 Heart Rate 1 : 62 bpm Height: 5'8" SpO2: 96% Weight: 238 lbs 09/29/2017 Blood Pressure 1: 124/76 Code : 8480-6 BMI: 36.8 Code : 85944-7 Heart Rate 1 : 83 bpm Height: [...] data Encounters Encounter Performer Location Codes Date EST. PATIENT, LEVEL IV Diagnosis: Essential (primary) hypertension[ICD10: I10] Diagnosis: Low back pain[ICD10: M54.5] Diagnosis: Dysuria[ICD10: R30.0] Diagnosis: Personal history of urinary calculi[ICD10: Z87.442] Diagnosis: Paroxysmal atrial fibrillation[ICD10: I48.0] Diagnosis: Urinary tract infection, site not specified[ICD10: N39.0] Katelynn Nance MD, [facility] CPT-4: 13059 2018 OFFICE VISIT, NEW - LEVEL 3 Diagnosis: Essential (primary) hypertension[ICD10: I10] Diagnosis: Type 2 diabetes mellitus without complications[ICD10: E11.9] Diagnosis: Low back pain[ICD10: M54.5] Diagnosis: Paroxysmal atrial fibrillation[ICD10: I48.0] Hayley Nance MD, [facility] CPT-4: 70651 09/29/2017 Plan of Care Planned Activity Notes [...] ordered - keflex rx sent to [facility]. 2018 Appointment: Katelynn Nance WPtel: [address] [place], [place] [phone] [place] (15 min) Moderate 2018 Patient Education: Patient Medication Summary Completed 2018 Patient Education: Back Pain Completed 2018 Care Plan: X-RAY EXAM L-S SPINE 2/ VWS INC : 61111-0 Pending 2018 Visit Plan: Hypertension - well [...] Dr Layne 09/29/2017 Appointment: Hayley Metcalf WPtel[phone] New Patient 09/29/2017 Patient Education: Patient Medication [...] culture ordered - [facility]. RECOMMEND PROBIOTIC TWICE DAILY FOR LOOSE [...]
--- OUTSIDE RECORDS SUMMARY | 2018-09-21 07:47 | XMS REPORT | CCD ---
Author Author Hayley Metcalf MD, 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 Unknown Has never used illegal drugs 09/29/2017 Allergies, Adverse Reactions, Alerts Substance Reaction Codes Entered Date Inactivated Date Status CODEINE RxNorm: 2670 09/29/2017 No Inactive Date Active demerol RxNorm: 075223 09/29/2017 No Inactive Date Active MORPHINE SULFATE [...] Start Date Stop Date Status Fill Instructions ranitidine 150 mg capsule RxNorm: 091582 1 Capsule(s) PO BID 09/08/2018 Active furosemide 20 mg tablet RxNorm: 145201 1 Tablet(s) PO daily 08/201704/12/2019 Active carvedilol 25 mg tablet RxNorm: 613272 1 Tablet(s) PO BID 04/1804/12/2019 Active lisinopril 20 mg tablet RxNorm: 158093 1 Tablet(s) PO daily 08/201704/12/2019 Active isosorbide mononitrate ER 60 mg tablet,extended release 24 hr RxNorm: 282062 1 Tablet(s) PO daily 04/18/2018 04/12/2019 Active atorvastatin 20 mg tablet RxNorm: 279529 1 Tablet(s) PO QHS 08/201704/12/2019 Active isosorbide mononitrate ER 60 mg tablet,extended release 24 hr RxNorm: 708412 1 Tablet(s) PO daily 03/21/2018 04/17/2018 Inactive carvedilol 25 mg tablet RxNorm: 573970 1 Tablet(s) PO BID 03/2104/17/2018 Inactive atorvastatin 20 mg tablet RxNorm: 634362 1 Tablet(s) PO QHS 05/201704/17/2018 Inactive furosemide 20 mg tablet RxNorm: 725880 1 Tablet(s) PO daily 05/201704/17/2018 Inactive atorvastatin 20 mg tablet RxNorm: 475177 1 Tablet(s) PO QHS 09/201703/15/2018 Inactive Keflex 500 mg capsule RxNorm: 628057 1 Capsule(s) PO QID 201701/31/2018 Inactive lisinopril 20 mg tablet RxNorm: 146530 1 Tablet(s) PO daily 09/201704/17/2018 Inactive lisinopril 20 mg tablet RxNorm: 799075 1 Tablet(s) PO daily 01/17/2018 Inactive Eliquis 5 mg tablet RxNorm: 6934546 1 Tablet(s) PO BID No Start Date Active Multaq 400 mg tablet RxNorm: 787959 1 Tablet(s) PO BID No Start Date Active alprazolam 0.25 mg tablet RxNorm: 092056 1 Tablet(s) PO Q6 as needed No Start Date Active ferrous sulfate 325 mg (65 mg iron) tablet RxNorm: 034388 1 Tablet(s) PO BID No Start Date Active Cartia XT 180 mg capsule,extended release RxNorm: 128841 1 Capsule(s) PO daily No Start Date Active furosemide 20 mg tablet RxNorm: 280894 1 Tablet(s) PO daily No Start Date 03/15/2018 Inactive atorvastatin 20 mg tablet RxNorm: 518989 1 Tablet(s) PO QHS No Start Date 02/16/2018 Inactive lisinopril 20 mg tablet RxNorm: 347733 1 Tablet(s) PO daily No Start Date 01/12/2018 Inactive ranitidine 150 mg capsule RxNorm: 079756 1 Capsule(s) PO BID No Start Date 05/11/2018 Inactive isosorbide mononitrate ER 60 mg tablet,extended release 24 hr RxNorm: 097925 1 Tablet(s) PO daily No Start Date 2017 Inactive carvedilol 25 mg tablet RxNorm: 019086 1 Tablet(s) PO BID No Start Date 03/20/2018 Inactive Medication Administered No Medication Administered data Immunizations Vaccine Codes Date Status Tetanus, Diptheria, Pertussis CVX: 113 completed Tetanus/Diptheria CVX: 113 08/15/2015 completed Assessments Condition Codes Effective Dates Dysuria ICD-10: R30.0 ICD-9: 788.1 2018 Urinary tract infection, site not specified ICD-10: N39.0 ICD-9: 599.0 2018 Essential (primary) hypertension ICD-10: I10 ICD-9: 401.1 2018 Personal history of urinary calculi ICD-10: Z87.442 ICD-9: V13.01 2018 Low back pain ICD-10: M54.5 ICD-9: 724.2 2018 Paroxysmal atrial fibrillation ICD-10: I48.0 ICD-9: 427.31 2018 Type 2 diabetes mellitus without complications [...] 29.6 pg 04/10/2018 Cbc With Differential Ord2 [place]% 11.6 % 04/10/2018 Cbc With Differential Ord2 [...] 1.50 K/ul 04/10/2018 Cbc With Differential Ord2 [place] ABS# 0.6 K/ul 04/10/2018 Cbc With Differential Ord2 Eos ABS# 0.1 K/ul 04/10/2018 Cbc With Differential Ord2 Baso ABS# 0.0 K/ul 04/10/2018 %Hba1C Vhm532 % HbA1c 93987-2 5.4 % 04/10/2018 %Hba1C Mzb058 Gluc Ave 108 mg/dL 04/10/2018 Tsh Ord6 TSH (3rd IS) 3.65 uIU/mL 03/01/2018 Lipid Ord30 CHOL 137 mg/dL 03/01/2018 Lipid Ord30 HDL 50.0 mg/dl 03/01/2018 Lipid Ord30 TRIG 75 mg/dL 03/01/2018 Lipid Ord30 LDL 72 mg/dL 03/01/2018 Lipid Ord30 C/HDL 2.7 Ratio 03/01/2018 Comp Metabolic Aqe514 NA 144 mEq/L 03/01/2018 Comp Metabolic Mtt569 K 3.6 mEq/L 03/01/2018 Comp Metabolic Qcw954 CL 111 mEq/L 03/01/2018 Comp Metabolic Eha986 CO2 23.0 mEq/L 03/01/2018 Comp Metabolic Zkd848 ANION GAP 14 03/01/2018 Comp Metabolic Acj457 GLUCOSE 103 mg/dL 03/01/2018 Comp Metabolic Fiv900 Creat 0.9 mg/dL 03/01/2018 Comp Metabolic Kvl920 eGFR 67 ml/min/1.73m2 03/01/2018 Comp Metabolic Sfy565 BUN 15 mg/dL 03/01/2018 Comp Metabolic Uib131 B/C Ratio 16.9 Ratio 03/01/2018 Comp Metabolic Rcg785 CALCIUM 9.4 mg/dL 03/01/2018 Comp Metabolic Jlk353 ALK PHOS 85 U/L 03/01/2018 Comp Metabolic Ltg856 AST(SGOT) 14 U/L 03/01/2018 Comp Metabolic Cqg948 ALT(SGPT) 12 U/L 03/01/2018 Comp Metabolic Gkn571 BILI T 0.9 mg/dL 03/01/2018 Comp Metabolic Skt081 ALBUMIN 4.2 g/dL 03/01/2018 Comp Metabolic Hhp897 TPRO 6.5 g/dL 03/01/2018 Comp Metabolic Hwu389 GLOB 2.3 g/dL 03/01/2018 Comp Metabolic Myl992 A/G Ratio 1.8 Ratio 03/01/2018 Comp Metabolic Lfo793 Osmo 288 mOsmo 03/01/2018 Culture Urine [id number] URINE CULTURE SEE NOTES 01/30/2018 Culture Urine [id number] Continued Results 01/30/2018 Urine Culture Ucult Complete >100,000 col/ml aerobic growth sent to ref lab 01/26/2018 %Hba1C Ytm710 % HbA1c 65943-7 5.6 % 09/30/2017 %Hba1C Eip941 Gluc Ave 114 mg/dL 09/30/2017 Review of [...] Codes Date URINALYSIS NONAUTO W/O SCOPE CPT-4: 18441 2018 Vital Signs Date Vital 2018 Blood Pressure 1: 132/64 Code : 8480-6 BMI: 36.7 Code : 71672-7 Heart Rate 1 : 62 bpm Height: 5'8" SpO2: 96% Weight: 238 lbs 09/29/2017 Blood Pressure 1: 124/76 Code : 8480-6 BMI: 36.8 Code : 31466-8 Heart Rate 1 : 83 bpm Height: [...] data Encounters Encounter Performer Location Codes Date ( EST. PATIENT, LEVEL IV Diagnosis: Essential (primary) hypertension[ICD10: I10] Diagnosis: Low back pain[ICD10: M54.5] Diagnosis: Dysuria[ICD10: R30.0] Diagnosis: Personal history of urinary calculi[ICD10: Z87.442] Diagnosis: Paroxysmal atrial fibrillation[ICD10: I48.0] Diagnosis: Urinary tract infection, site not specified[ICD10: N39.0] [facility] CPT-4: 72954 2018 OFFICE VISIT, NEW - LEVEL 3 Diagnosis: Essential (primary) hypertension[ICD10: I10] Diagnosis: Type 2 diabetes mellitus without complications[ICD10: E11.9] Diagnosis: Low back pain[ICD10: M54.5] Diagnosis: Paroxysmal atrial fibrillation[ICD10: I48.0] [facility] CPT-4: 29846 09/29/2017 Plan of Care Planned Activity Notes [...] culture ordered - keflex rx sent to [facility]. 2018 Appointment: [facility]ately[facility]Ptel[facility] [phone] [facility] [id number] (15 min) Moderate 2018 Patient Education: Patient Medication Summary Completed 2018 Patient Education: Back Pain Completed 2018 Care Plan: X-RAY EXAM L-S SPINE 2/3 VWS LOINC : 01641-0 Pending 2018 Visit Plan: Hypertension - well [...] Layne 09/29/2017 Appointment: [facility]el[facility] [phone] [facility] New Patient 09/29/2017 Patient Education: Patient Medication [...] culture ordered - keflex rx sent to [facility]. RECOMMEND PROBIOTIC TWICE DAILY FOR [...]
--- OUTSIDE RECORDS SUMMARY | 2018-09-21 07:48 | XMS REPORT | CCD ---
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 Unknown Has never used illegal drugs 09/29/2017 Allergies, Adverse Reactions, Alerts Substance Reaction Codes Entered Date Inactivated Date Status CODEINE RxNorm: 2670 09/29/2017 No Inactive Date Active demerol RxNorm: 053346 09/29/2017 No Inactive Date Active MORPHINE SULFATE [...] 60 mg tablet,extended release 24 hr RxNorm: 960407 1 Tablet(s) PO daily 03/21/2018 07/18/2018 Active carvedilol 25 mg tablet RxNorm: 277280 1 Tablet(s) PO BID 03/2107/18/2018 Active atorvastatin 20 mg tablet RxNorm: 529317 1 Tablet(s) PO QHS 05/201707/13/2018 Active furosemide 20 mg tablet RxNorm: 774947 1 Tablet(s) PO daily 05/201707/13/2018 Active atorvastatin 20 mg tablet RxNorm: 805958 1 Tablet(s) PO QHS 09/201703/15/2018 Inactive Keflex 500 mg capsule RxNorm: 766228 1 Capsule(s) PO QID 201701/31/2018 Inactive lisinopril 20 mg tablet RxNorm: 006860 1 Tablet(s) PO daily 09/201705/17/2018 Active lisinopril 20 mg tablet RxNorm: 883641 1 Tablet(s) PO daily 01/17/2018 Inactive Eliquis 5 mg tablet RxNorm: 2382051 1 Tablet(s) PO BID No Start Date Active Multaq 400 mg tablet RxNorm: 671836 1 Tablet(s) PO BID No Start Date Active alprazolam 0.25 mg tablet RxNorm: 549833 1 Tablet(s) PO Q6 as needed No Start Date Active ferrous sulfate 325 mg (65 mg iron) tablet RxNorm: 941314 1 Tablet(s) PO BID No Start Date Active Cartia XT 180 mg capsule,extended release RxNorm: 853999 1 Capsule(s) PO daily No Start Date Active ranitidine 150 mg capsule RxNorm: 110280 1 Capsule(s) PO BID No Start Date Active furosemide 20 mg tablet RxNorm: 808602 1 Tablet(s) PO daily No Start Date 03/15/2018 Inactive atorvastatin 20 mg tablet RxNorm: 728296 1 Tablet(s) PO QHS No Start Date 02/16/2018 Inactive lisinopril 20 mg tablet RxNorm: 124888 1 Tablet(s) PO daily No Start Date 01/12/2018 Inactive isosorbide mononitrate ER 60 mg tablet,extended release 24 hr RxNorm: 657047 1 Tablet(s) PO daily No Start Date 2017 Inactive carvedilol 25 mg tablet RxNorm: 897007 1 Tablet(s) PO BID No Start Date [...] 11.5 g/dl 04/10/2018 Cbc With Differential Ord2 Neut% 55.5 % 04/10/2018 Cbc With Differential Ord2 HCT 36.2 % 04/10/2018 Cbc With Differential Ord2 MCV 93.3 fl 04/10/2018 Cbc With Differential Ord2 Lymph% 29.9 % 04/10/2018 Cbc With Differential Ord2 MCH 29.6 pg 04/10/2018 Cbc With Differential Ord2 [place]% 11.6 % 04/10/2018 Cbc With Differential Ord2 [...] 1.50 K/ul 04/10/2018 Cbc With Differential Ord2 [place] ABS# 0.6 K/ul 04/10/2018 Cbc With Differential Ord2 Eos ABS# 0.1 K/ul 04/10/2018 Cbc With Differential Ord2 Baso ABS# 0.0 K/ul 04/10/2018 Culture Urine [id number] URINE CULTURE SEE NOTES 01/30/2018 Culture Urine [id number] Continued Results 01/30/2018 Urine Culture Ucult Complete >100,000 col/ml aerobic growth sent to ref lab 01/26/2018 %Hba1C Yzb648 % HbA1c 28643-3 5.6 % 09/30/2017 %Hba1C Cvq955 Gluc Ave 114 mg/dL 09/30/2017 Review of [...] clear 09/29/2017 None Full Exam - General 1995 Eyes pupils and irises Overall: pupils equal, round, reactive to light and accomodation 09/29/2017 None Procedures Procedure Codes Date URINALYSIS NONAUTO W/O SCOPE CPT-4: 46573 2018 Vital Signs Date Vital 2018 Blood Pressure 1: 132/64 Code : 8480-6 BMI: 36.7 Code : 97807-5 Heart Rate 1 : 62 bpm Height: 5'8" SpO2: 96% Weight: 238 lbs 09/29/2017 Blood Pressure 1: 124/76 Code : 8480-6 BMI: 36.8 Code : 11468-3 Heart Rate 1 : 83 bpm Height: [...] Encounters Encounter Performer Location Codes Date () [address] EST. PATIENT, LEVEL IV Diagnosis: Essential (primary) hypertension[ICD10: I10] Diagnosis: Low back pain[ICD10: M54.5] Diagnosis: Dysuria[ICD10: R30.0] Diagnosis: Personal history of urinary calculi[ICD10: Z87.442] Diagnosis: Paroxysmal atrial fibrillation[ICD10: I48.0] Diagnosis: Urinary tract infection, site not specified[ICD10: N39.0] Katelynn Nance MD, [facility] CPT-4: 93036 2018 OFFICE VISIT, NEW - LEVEL 3 Diagnosis: Essential (primary) hypertension[ICD10: I10] Diagnosis: Type 2 diabetes mellitus without complications[ICD10: E11.9] Diagnosis: Low back pain[ICD10: M54.5] Diagnosis: Paroxysmal atrial fibrillation[ICD10: I48.0] Hayley Nance MD, [facility] CPT-4: 07183 09/29/2017 Plan of Care Planned Activity Notes [...] culture ordered - keflex rx sent to [facility]. 2018 Appointment: Katelynn Nance WPtel: [id number] (15 min) Moderate 2018 Patient Education: Patient Medication Summary Completed 2018 Patient Education: Back Pain Completed 2018 Care Plan: X-RAY EXAM L-S SPINE 2/3 VWS LOINC : 31333-5 Pending 2018 Visit Plan: Hypertension - well [...] Dr Layne 09/29/2017 Appointment: Hayley Metcalf WPtel: [phone] [facility] New Patient 09/29/2017 Patient Education: [...] culture ordered - keflex rx sent to [facility]. RECOMMEND PROBIOTIC TWICE DAILY FOR [...]
--- OUTSIDE RECORDS SUMMARY | 2018-09-21 07:48 | XMS REPORT | CCD ---
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 Unknown Has never used illegal drugs 09/29/2017 Allergies, Adverse Reactions, Alerts Substance Reaction Codes Entered Date Inactivated Date Status CODEINE RxNorm: 2670 09/29/2017 No Inactive Date Active demerol RxNorm: 507405 09/29/2017 No Inactive Date Active MORPHINE SULFATE [...] 60 mg tablet,extended release 24 hr RxNorm: 355837 1 Tablet(s) PO daily 03/21/2018 07/18/2018 Active carvedilol 25 mg tablet RxNorm: 472336 1 Tablet(s) PO BID 03/2107/18/2018 Active atorvastatin 20 mg tablet RxNorm: 004770 1 Tablet(s) PO QHS 05/201707/13/2018 Active furosemide 20 mg tablet RxNorm: 713246 1 Tablet(s) PO daily 05/201707/13/2018 Active atorvastatin 20 mg tablet RxNorm: 836207 1 Tablet(s) PO QHS 09/201703/15/2018 Inactive Keflex 500 mg capsule RxNorm: 658640 1 Capsule(s) PO QID 201701/31/2018 Inactive lisinopril 20 mg tablet RxNorm: 140691 1 Tablet(s) PO daily 09/201705/17/2018 Active lisinopril 20 mg tablet RxNorm: 804637 1 Tablet(s) PO daily 01/17/2018 Inactive Eliquis 5 mg tablet RxNorm: 5491728 1 Tablet(s) PO BID No Start Date Active Multaq 400 mg tablet RxNorm: 131602 1 Tablet(s) PO BID No Start Date Active alprazolam 0.25 mg tablet RxNorm: 824444 1 Tablet(s) PO Q6 as needed No Start Date Active ferrous sulfate 325 mg (65 mg iron) tablet RxNorm: 574105 1 Tablet(s) PO BID No Start Date Active Cartia XT 180 mg capsule,extended release RxNorm: 623875 1 Capsule(s) PO daily No Start Date Active ranitidine 150 mg capsule RxNorm: 086818 1 Capsule(s) PO BID No Start Date Active furosemide 20 mg tablet RxNorm: 746335 1 Tablet(s) PO daily No Start Date 03/15/2018 Inactive atorvastatin 20 mg tablet RxNorm: 265856 1 Tablet(s) PO QHS No Start Date 02/16/2018 Inactive lisinopril 20 mg tablet RxNorm: 168557 1 Tablet(s) PO daily No Start Date 01/12/2018 Inactive isosorbide mononitrate ER 60 mg tablet,extended release 24 hr RxNorm: 804076 1 Tablet(s) PO daily No Start Date 2017 Inactive carvedilol 25 mg tablet RxNorm: 479316 1 Tablet(s) PO BID No Start Date [...] 29.9 % 04/10/2018 Cbc With Differential Ord2 [place]% 11.6 % 04/10/2018 Cbc With Differential Ord2 MCH 29.6 pg 04/10/2018 Cbc With Differential Ord2 Eos% 2.8 % 04/10/2018 Cbc With Differential Ord2 MCHC 31.8 pg 04/10/2018 Cbc With Differential Ord2 PLT 222 K/ul 04/10/2018 Cbc With Differential Ord2 Baso% 0.2 % 04/10/2018 Cbc With Differential Ord2 RDW 14.0 % 04/10/2018 Cbc With Differential Ord2 Neut ABS# 2.79 K/ul 04/10/2018 Cbc With Differential Ord2 Lymph ABS# 1.50 K/ul 04/10/2018 Cbc With Differential Ord2 [place] ABS# 0.6 K/ul 04/10/2018 Cbc With Differential Ord2 Eos ABS# 0.1 K/ul 04/10/2018 Cbc With Differential Ord2 Baso ABS# 0.0 K/ul 04/10/2018 %Hba1C Xsm867 % HbA1c 10181-1 5.4 % 04/10/2018 %Hba1C Gwt571 Gluc Ave 108 mg/dL 04/10/2018 Tsh Ord6 TSH (3rd IS) 3.65 uIU/mL 03/01/2018 Lipid Ord30 CHOL 137 mg/dL 03/01/2018 Lipid Ord30 HDL 50.0 mg/dl 03/01/2018 Lipid Ord30 TRIG 75 mg/dL 03/01/2018 Lipid Ord30 LDL 72 mg/dL 03/01/2018 Lipid Ord30 C/HDL 2.7 Ratio 03/01/2018 Comp Metabolic Xcs433 NA 144 mEq/L 03/01/2018 Comp Metabolic Lbr949 K 3.6 mEq/L 03/01/2018 Comp Metabolic Fje447 CL 111 mEq/L 03/01/2018 Comp Metabolic Yfx570 CO2 23.0 mEq/L 03/01/2018 Comp Metabolic Npc100 ANION GAP 14 03/01/2018 Comp Metabolic Ztz513 GLUCOSE 103 mg/dL 03/01/2018 Comp Metabolic Vld098 Creat 0.9 mg/dL 03/01/2018 Comp Metabolic Zgm471 eGFR 67 ml/min/1.73m2 03/01/2018 Comp Metabolic Cjw178 BUN 15 mg/dL 03/01/2018 Comp Metabolic Epp672 B/C Ratio 16.9 Ratio 03/01/2018 Comp Metabolic Wdk278 CALCIUM 9.4 mg/dL 03/01/2018 Comp Metabolic Lgj418 ALK PHOS 85 U/L 03/01/2018 Comp Metabolic Jml941 AST(SGOT) 14 U/L 03/01/2018 Comp Metabolic Lyw181 ALT(SGPT) 12 U/L 03/01/2018 Comp Metabolic Bup541 BILI T 0.9 mg/dL 03/01/2018 Comp Metabolic Ycn943 ALBUMIN 4.2 g/dL 03/01/2018 Comp Metabolic Ugo031 TPRO 6.5 g/dL 03/01/2018 Comp Metabolic Gsn256 GLOB 2.3 g/dL 03/01/2018 Comp Metabolic Uku172 A/G Ratio 1.8 Ratio 03/01/2018 Comp Metabolic Zle123 Osmo 288 mOsmo 03/01/2018 Culture Urine [id number] URINE CULTURE SEE NOTES 01/30/2018 Culture Urine [id number] Continued Results 01/30/2018 Urine Culture Ucult Complete >100,000 col/ml aerobic growth sent to ref lab 01/26/2018 %Hba1C Kgb105 % HbA1c 12294-1 5.6 % 09/30/2017 %Hba1C Ksx626 Gluc Ave 114 mg/dL 09/30/2017 Review of [...] Effective Dates Notes Full Exam - General 1995 Constitutional general appearance Overall: well developed 2018 [...] Codes Date URINALYSIS NONAUTO W/O SCOPE CPT-4: 75330 2018 Vital Signs Date Vital 2018 Blood Pressure 1: 132/64 Code : 8480-6 BMI: 36.7 Code : 38862-8 Heart Rate 1 : 62 bpm Height: 5'8" SpO2: 96% Weight: 238 lbs 09/29/2017 Blood Pressure 1: 124/76 Code : 8480-6 BMI: 36.8 Code : 90807-1 Heart Rate 1 : 83 bpm Height: [...] data Encounters Encounter Performer Location Codes Date ([address]) [address] EST. PATIENT, LEVEL IV Diagnosis: Essential (primary) hypertension[ICD10: I10] Diagnosis: Low back pain[ICD10: M54.5] Diagnosis: Dysuria[ICD10: R30.0] Diagnosis: Personal history of urinary calculi[ICD10: Z87.442] Diagnosis: Paroxysmal atrial fibrillation[ICD10: I48.0] Diagnosis: Urinary tract infection, site not specified[ICD10: N39.0] [facility] CPT-4: 22085 2018 OFFICE VISIT, NEW - LEVEL 3 Diagnosis: Essential (primary) hypertension[ICD10: I10] Diagnosis: Type 2 diabetes mellitus without complications[ICD10: E11.9] Diagnosis: Low back pain[ICD10: M54.5] Diagnosis: Paroxysmal atrial fibrillation[ICD10: I48.0] [facility] CPT-4: 79298 09/29/2017 Plan of Care Planned Activity Notes [...] culture ordered - keflex rx sent to [facility]. 2018 Appointment: Katelynn Nance WPtel: [address] [place], [place] [phone] (15 min) Moderate 2018 Patient Education: Patient Medication Summary Completed 2018 Patient Education: Back Pain Completed 2018 Care Plan: X-RAY EXAM L-S SPINE 2/3 VWS LOINC : 58663-3 Pending 2018 Visit Plan: Hypertension - well [...] Layne 09/29/2017 Appointment: Hayley Metcalf [facility]Ptel[facility] [phone] [facility] [place] New Patient 09/29/2017 Patient Education: Patient [...] culture ordered - keflex rx sent to [facility]. RECOMMEND PROBIOTIC TWICE DAILY FOR [...]
--- OUTSIDE RECORDS SUMMARY | 2018-09-21 07:48 | XMS REPORT | CCD ---
Author Author Hayley Metcalf MD, [facility] Address [address] [place] [address] Phone Care Team Providers Care Sketcher Name Role Phone PP Unavailable CCM Unavailable Summary Purpose Interface Exchange Insurance Providers Payer name Policy type / Coverage type Covered green party ID Effective Begin Date Effective End Date ADVANTRA Commercial Insurance [id number] 2017 Unknown Family history Mother Diagnosis Age At Onset Diabetes mellitus Type 2 Unknown Hypertension Unknown Colon cancer Unknown Alcoholism Unknown Hyperlipidemia Unknown Social History Social History Element Codes Description Effective Dates Marital status Unknown González 09/29/2017 Number of children Unknown 3 09/29/[address]: 946178513 Never smoker 09/29/[address]: 896126210 Never drinks alcohol 09/29/2017 Has the patient ever used illegal drugs? Unknown Has never used illegal drugs 09/29/2017 Allergies, Adverse Reactions, Alerts Substance Reaction Codes Entered Date Inactivated Date Status CODEINE RxNorm: 2670 09/29/2017 No Inactive Date Active demerol RxNorm: 744927 09/29/2017 No Inactive Date Active MORPHINE SULFATE [...] 60 mg tablet,extended release 24 hr RxNorm: 882833 1 Tablet(s) PO daily 03/21/2018 07/18/2018 Active carvedilol 25 mg tablet RxNorm: 173660 1 Tablet(s) PO BID 03/2107/18/2018 Active atorvastatin 20 mg tablet RxNorm: 927036 1 Tablet(s) PO QHS 05/201707/13/2018 Active furosemide 20 mg tablet RxNorm: 258371 1 Tablet(s) PO daily 05/201707/13/2018 Active atorvastatin 20 mg tablet RxNorm: 272367 1 Tablet(s) PO QHS 09/201703/15/2018 Inactive Keflex 500 mg capsule RxNorm: 649289 1 Capsule(s) PO QID 201701/31/2018 Inactive lisinopril 20 mg tablet RxNorm: 827026 1 Tablet(s) PO daily 09/201705/17/2018 Active lisinopril 20 mg tablet RxNorm: 768816 1 Tablet(s) PO daily 01/17/2018 Inactive Eliquis 5 mg tablet RxNorm: 4985645 1 Tablet(s) PO BID No Start Date Active Multaq 400 mg tablet RxNorm: 137329 1 Tablet(s) PO BID No Start Date Active alprazolam 0.25 mg tablet RxNorm: 676902 1 Tablet(s) PO Q6 as needed No Start Date Active ferrous sulfate 325 mg (65 mg iron) tablet RxNorm: 853226 1 Tablet(s) PO BID No Start Date Active Cartia XT 180 mg capsule,extended release RxNorm: 318682 1 Capsule(s) PO daily No Start Date Active ranitidine 150 mg capsule RxNorm: 961556 1 Capsule(s) PO BID No Start Date Active furosemide 20 mg tablet RxNorm: 116953 1 Tablet(s) PO daily No Start Date 03/15/2018 Inactive atorvastatin 20 mg tablet RxNorm: 170175 1 Tablet(s) PO QHS No Start Date 02/16/2018 Inactive lisinopril 20 mg tablet RxNorm: 081278 1 Tablet(s) PO daily No Start Date 01/12/2018 Inactive isosorbide mononitrate ER 60 mg tablet,extended release 24 hr RxNorm: 742818 1 Tablet(s) PO daily No Start Date 2017 Inactive carvedilol 25 mg tablet RxNorm: 374723 1 Tablet(s) PO BID No Start Date [...] Observation Code Item Item Code Result Date Culture Urine [id number] URINE CULTURE SEE NOTES 01/30/2018 Culture Urine [id number] Continued Results 01/30/2018 Urine Culture Ucult Complete >100,000 col/ml aerobic growth sent to ref lab 01/26/2018 %Hba1C Vps085 % HbA1c 01988-0 5.6 % 09/30/2017 %Hba1C Jqb6[address] Gluc [address] 114 mg/dL 09/30/2017 Review of [...] Codes Date URINALYSIS NONAUTO W/O SCOPE CPT-4: 66911 2018 Vital Signs Date Vital 2018 Blood Pressure 1: 132/64 Code : 8480-6 BMI: 36.7 Code : 73509-0 Heart Rate 1 : 62 bpm Height: 5'8" SpO2: 96% Weight: 238 lbs 09/29/2017 Blood Pressure 1: 124/76 Code : 8480-6 BMI: 36.8 Code : 74708-3 Heart Rate 1 : 83 bpm Height: [...] Encounters Encounter Performer Location Codes Date () EST. PATIENT, LEVEL IV Diagnosis: Essential (primary) hypertension[ICD10: I10] Diagnosis: Low back pain[ICD10: M54.5] Diagnosis: Dysuria[ICD10: R30.0] Diagnosis: Personal history of urinary calculi[ICD10: Z87.442] Diagnosis: Paroxysmal atrial fibrillation[ICD10: I48.0] Diagnosis: Urinary tract infection, site not specified[ICD10: N39.0] [facility] CPT-4: 39915 2018 OFFICE VISIT, NEW - LEVEL 3 Diagnosis: Essential (primary) hypertension[ICD10: I10] Diagnosis: Type 2 diabetes mellitus without complications[ICD10: E11.9] Diagnosis: Low back pain[ICD10: M54.5] Diagnosis: Paroxysmal atrial fibrillation[ICD10: I48.0] [facility] CPT-4: 10263 09/29/2017 Plan of Care Planned Activity Notes [...] culture ordered - keflex rx [facility]. 2018 [facility] [phone] [facility] (15 min) Moderate 2018 Patient Education: Patient Medication Summary Completed 2018 Patient Education: Back Pain Completed 2018 Care Plan: X-RAY EXAM L-S SPINE 2/3 VWS LOINC : 99958-6 Pending 2018 Visit Plan: Hypertension - well [...] Layne 09/29/2017 Appointment: [facility] [phone] [facility] New Patient 09/29/2017 Patient Education: Patient [...] culture ordered - keflex rx sent to [facility]. RECOMMEND PROBIOTIC TWICE DAILY FOR LOOSE [...]
--- OUTSIDE RECORDS SUMMARY | 2018-09-21 07:49 | XMS REPORT | CCD ---
Author Author Hayley Metcalf MD, [facility] Address [address] [place] [address] Phone Care Team Providers Care Cfo Name Role Phone PP Unavailable CCM Unavailable Summary Purpose Interface Exchange Insurance Providers Payer name Policy type / Coverage type Covered alliance party ID Effective Begin Date Effective End Date ADVANTRA Commercial Insurance [id number] 2017 Unknown Family history Mother Diagnosis Age At Onset Diabetes mellitus Type 2 Unknown Hypertension Unknown Colon cancer Unknown Alcoholism Unknown Hyperlipidemia Unknown Social History Social History Element Codes Description Effective Dates Marital status Unknown González 09/29/2017 Number of children Unknown 3 09/29/[address]: 730046953 Never smoker 09/29/[address]: 709824265 Never drinks alcohol 09/29/2017 Has the patient ever used illegal drugs? Unknown Has never used illegal drugs 09/29/2017 Allergies, Adverse Reactions, Alerts Substance Reaction Codes Entered Date Inactivated Date Status CODEINE RxNorm: 2670 09/29/2017 No Inactive Date Active demerol RxNorm: 522640 09/29/2017 No Inactive Date Active MORPHINE SULFATE [...] Start Date Stop Date Status Fill Instructions carvedilol 25 mg tablet RxNorm: 016918 1 Tablet(s) PO BID 03/2107/18/2018 Active atorvastatin 20 mg tablet RxNorm: 796156 1 Tablet(s) PO QHS 05/201707/13/2018 Active furosemide 20 mg tablet RxNorm: 739681 1 Tablet(s) PO daily 05/201707/13/2018 Active atorvastatin 20 mg tablet RxNorm: 053982 1 Tablet(s) PO QHS 09/201703/15/2018 Inactive Keflex 500 mg capsule RxNorm: 145833 1 Capsule(s) PO QID 201701/31/2018 Inactive lisinopril 20 mg tablet RxNorm: 496978 1 Tablet(s) PO daily 09/201705/17/2018 Active lisinopril 20 mg tablet RxNorm: 691042 1 Tablet(s) PO daily 01/17/2018 Inactive Eliquis 5 mg tablet RxNorm: 5399146 1 Tablet(s) PO BID No Start Date Active Multaq 400 mg tablet RxNorm: 866995 1 Tablet(s) PO BID No Start Date Active alprazolam 0.25 mg tablet RxNorm: 146532 1 Tablet(s) PO Q6 as needed No Start Date Active ferrous sulfate 325 mg (65 mg iron) tablet RxNorm: 665658 1 Tablet(s) PO BID No Start Date Active Cartia XT 180 mg capsule,extended release RxNorm: 704458 1 Capsule(s) PO daily No Start Date Active ranitidine 150 mg capsule RxNorm: 432771 1 Capsule(s) PO BID No Start Date Active isosorbide mononitrate ER 60 mg tablet,extended release 24 hr RxNorm: 041148 1 Tablet(s) PO daily No Start Date Active furosemide 20 mg tablet RxNorm: 716184 1 Tablet(s) PO daily No Start Date 03/15/2018 Inactive atorvastatin 20 mg tablet RxNorm: 260037 1 Tablet(s) PO QHS No Start Date 02/16/2018 Inactive lisinopril 20 mg tablet RxNorm: 484656 1 Tablet(s) PO daily No Start Date 01/12/2018 Inactive carvedilol 25 mg tablet RxNorm: 541924 1 Tablet(s) PO BID No Start Date [...] Item Item Code Result Date Culture Urine [id number] URINE CULTURE SEE NOTES 01/30/2018 Culture Urine [id number] Continued Results 01/30/2018 Urine Culture Ucult Complete >100,000 col/ml aerobic growth sent to ref lab 01/26/2018 %Hba1C Bfm954 % HbA1c 72911-1 5.6 % 09/30/2017 %Hba1C Oil[address] Gluc [address] 114 mg/dL 09/30/2017 Review of [...] Codes Date URINALYSIS NONAUTO W/O SCOPE CPT-4: 22362 2018 Vital Signs Date Vital 2018 Blood Pressure 1: 132/64 Code : 8480-6 BMI: 36.7 Code : 35583-7 Heart Rate 1 : 62 bpm Height: 5'8" SpO2: 96% Weight: 238 lbs 09/29/2017 Blood Pressure 1: 124/76 Code : 8480-6 BMI: 36.8 Code : 46252-9 Heart Rate 1 : 83 bpm Height: [...] data Encounters Encounter Performer Location Codes Date (61052) 47620 EST. PATIENT, LEVEL IV Diagnosis: Essential (primary) hypertension[ICD10: I10] Diagnosis: Low back pain[ICD10: M54.5] Diagnosis: Dysuria[ICD10: R30.0] Diagnosis: Personal history of urinary calculi[ICD10: Z87.442] Diagnosis: Paroxysmal atrial fibrillation[ICD10: I48.0] Diagnosis: Urinary tract infection, site not specified[ICD10: N39.0] Katelynn Nance MD, [facility] CPT-4: 52000 2018 OFFICE VISIT, NEW - LEVEL 3 Diagnosis: Essential (primary) hypertension[ICD10: I10] Diagnosis: Type 2 diabetes mellitus without complications[ICD10: E11.9] Diagnosis: Low back pain[ICD10: M54.5] Diagnosis: Paroxysmal atrial fibrillation[ICD10: I48.0] [facility] CPT-4: 03698 09/29/2017 Plan of Care Planned Activity Notes [...] culture ordered - keflex rx sent to [facility]. 2018 Appointment: [facility] [phone] [facility] (15 min) Moderate 2018 Patient Education: Patient Medication Summary Completed 2018 Patient Education: Back Pain Completed 2018 Care Plan: X-RAY EXAM L-S SPINE 2/3 VWS LOINC : 36317-7 Pending 2018 Visit Plan: Hypertension - well [...] back pain-history of kidney stones-[facility] managed by Dr Layne 09/29/2017 Appointment: Hayley Metcalf WPtel: [phone] [facility] New Patient 09/29/2017 Patient Education: Patient Medication [...] culture ordered - keflex rx sent to [facility]. RECOMMEND PROBIOTIC TWICE DAILY FOR [...]
--- OUTSIDE RECORDS SUMMARY | 2018-09-21 07:49 | XMS REPORT | CCD ---
Author Author Hayley Metcalf MD, [facility] Address [address] [place] [address] Phone Care Team Providers Care Race Car Driver Name Role Phone PP Unavailable CCM Unavailable Summary Purpose Interface Exchange Insurance Providers Payer name Policy type / Coverage type Covered democrat ID Effective Begin Date Effective End Date ADVANTRA Commercial Insurance [id number] 2017 Unknown Family history Mother Diagnosis Age At Onset Diabetes mellitus Type 2 Unknown Hypertension Unknown Colon cancer Unknown Alcoholism Unknown Hyperlipidemia Unknown Social History Social History Element Codes Description Effective Dates Marital status Unknown González 09/29/2017 Number of children Unknown 3 09/29/[address]: 949175360 Never smoker 09/29/[address]: 646354774 Never drinks alcohol 09/29/2017 Has the patient ever used illegal drugs? Unknown Has never used illegal drugs 09/29/2017 Allergies, Adverse Reactions, Alerts Substance Reaction Codes Entered Date Inactivated Date Status CODEINE RxNorm: 2670 09/29/2017 No Inactive Date Active demerol RxNorm: 830413 09/29/2017 No Inactive Date Active MORPHINE SULFATE [...] Start Date Stop Date Status Fill Instructions atorvastatin 20 mg tablet RxNorm: 555135 1 Tablet(s) PO QHS 05/201707/13/2018 Active furosemide 20 mg tablet RxNorm: 215040 1 Tablet(s) PO daily 05/201707/13/2018 Active atorvastatin 20 mg tablet RxNorm: 830194 1 Tablet(s) PO QHS 09/201703/15/2018 Inactive Keflex 500 mg capsule RxNorm: 237203 1 Capsule(s) PO QID 201701/31/2018 Inactive lisinopril 20 mg tablet RxNorm: 820305 1 Tablet(s) PO daily 09/201705/17/2018 Active lisinopril 20 mg tablet RxNorm: 539228 1 Tablet(s) PO daily 01/17/2018 Inactive Eliquis 5 mg tablet RxNorm: 9069165 1 Tablet(s) PO BID No Start Date Active Multaq 400 mg tablet RxNorm: 388250 1 Tablet(s) PO BID No Start Date Active alprazolam 0.25 mg tablet RxNorm: 224765 1 Tablet(s) PO Q6 as needed No Start Date Active ferrous sulfate 325 mg (65 mg iron) tablet RxNorm: 200073 1 Tablet(s) PO BID No Start Date Active Cartia XT 180 mg capsule,extended release RxNorm: 677571 1 Capsule(s) PO daily No Start Date Active ranitidine 150 mg capsule RxNorm: 852975 1 Capsule(s) PO BID No Start Date Active isosorbide mononitrate ER 60 mg tablet,extended release 24 hr RxNorm: 085286 1 Tablet(s) PO daily No Start Date Active carvedilol 25 mg tablet RxNorm: 226916 1 Tablet(s) PO BID No Start Date Active furosemide 20 mg tablet RxNorm: 416036 1 Tablet(s) PO daily No Start Date 03/15/2018 Inactive atorvastatin 20 mg tablet RxNorm: 984054 1 Tablet(s) PO QHS No Start Date 02/16/2018 Inactive lisinopril 20 mg tablet RxNorm: 582145 1 Tablet(s) PO daily No Start Date 01/12/2018 Inactive Medication Administered No Medication Administered data [...] Item Item Code Result Date Culture Urine [id number] URINE CULTURE SEE NOTES 01/30/2018 Culture Urine [id number] Continued Results 01/30/2018 Urine Culture Ucult Complete >100,000 col/ml aerobic growth sent to ref lab 01/26/2018 %Hba1C Goc230 % HbA1c 47802-6 5.6 % 09/30/2017 %Hba1C Pos164 Gluc Ave 114 mg/dL 09/30/2017 Review of [...] Codes Date URINALYSIS NONAUTO W/O SCOPE CPT-4: 67008 2018 Vital Signs Date Vital 2018 Blood Pressure 1: 132/64 Code : 8480-6 BMI: 36.7 Code : 79244-4 Heart Rate 1 : 62 bpm Height: 5'8" SpO2: 96% Weight: 238 lbs 09/29/2017 Blood Pressure 1: 124/76 Code : 8480-6 BMI: 36.8 Code : 83094-1 Heart Rate 1 : 83 bpm Height: [...] site not specified[ICD10: N39.0] Katelynn Nance MD, [facility] CPT-4: 77552 2018 OFFICE VISIT, NEW - LEVEL 3 Diagnosis: Essential (primary) hypertension[ICD10: I10] Diagnosis: Type 2 diabetes mellitus without complications[ICD10: E11.9] Diagnosis: Low back pain[ICD10: M54.5] Diagnosis: Paroxysmal atrial fibrillation[ICD10: I48.0] Hayley Nance MD, [facility] CPT-4: 02511 09/29/2017 Plan of Care Planned Activity Notes [...] culture ordered - keflex rx sent to [facility]. 2018 Appointment: Katelynn Nance WPtel: [address] [place], [place] [phone] (15 min) Moderate 2018 Patient Education: Patient Medication Summary Completed 2018 Patient Education: Back Pain Completed 2018 Care Plan: X-RAY EXAM L-S SPINE 2/3 VWS LOINC : 11259-3 Pending 2018 Visit Plan: Hypertension - well [...] Dr Layne 09/29/2017 Appointment: Hayley Metcalf WPtel[facility] New Patient 09/29/2017 Patient Education: Patient Medication [...] culture ordered - keflex rx sent to [facility]. RECOMMEND PROBIOTIC TWICE DAILY [...]
[2018-09-21] MEDS ORDERED: LIDOCAINE 1% INJ 20 ML 20 ML VIAL ONE (07:54)
[2018-09-21] MEDS ORDERED: HEParin (CATH LAB) 2,000 ML IV ONE (07:54)
[2018-09-21] MEDS ORDERED: NS IV 1000 ML 1,000 ML IV SCH ×2 (08:00→12:13)
[2018-09-21] MEDS ORDERED: AMIO100T4 PO (08:14)
[2018-09-21] MEDS ORDERED: LISI-552 PO (08:14)
[2018-09-21 08:17] LABS: HEMOGLOBIN 12.5 G/DL (11.5-16.0); MEAN PLATELET VOLUME 10.6 FL (7.4-10.4); RED CELL DISTRIBUTION WIDTH 14.1 % (10.0-14.5); WHITE BLOOD COUNT 5.8 10^3/uL (4.3-11.0)
[2018-09-21 08:37] LABS: ALBUMIN 4.3 GM/DL (3.2-4.5); BILIRUBIN,TOTAL 0.7 MG/DL (0.1-1.0); CALCIUM 9.4 MG/DL (8.5-10.1); CREATININE SERUM 1.13 MG/DL (0.60-1.30); POTASSIUM 3.6 MMOL/L (3.6-5.0); TOTAL PROTEIN 7.2 GM/DL (6.4-8.2)
[2018-09-21] MEDS ORDERED: MIDAZOLAM 5 MG/5 ML (VERSED) VIAL ONE (09:11)
[2018-09-21] MEDS ORDERED: fentaNYL INJECTION 100 MCG/2 ML AMP ONE ×2 (09:12→10:55)
[2018-09-21] MEDS ORDERED: HEParin 1000 UNIT/ML (10ML VIAL) FOR BOLUS ONE (09:12)
[2018-09-21] MEDS ORDERED: HEParin (CATH LAB) 1,000 ML IV ONE (10:15)
[2018-09-21] MEDS ORDERED: MIDAZOLAM 2 MG/2 ML (VERSED) VIAL ONE (11:23)
--- NOTE | 2018-09-21 12:13 | Coronary Angiography & PCI ---
Peripheral Angio & Interv DATE OF SERVICE: 09/21/18 PRIMARY PHYSICIAN: Katelynn Nance MD PERFORMING INTERVENTIONALIST: Dr. Lucila Wong INDICATION: Left upper extremity venous occlusion/high-grade stenosis. PREOPERATIVE INDICATION: Left upper extremity venous occlusion/high-grade stenosis. POSTOPERATIVE DIAGNOSIS: Left axillary/subclavian vein occlusion, successful balloon venoplasty. HISTORY: This is a 68-year-old lady with history of atrial fibrillation with rapid ventricular rate, severe LV systolic dysfunction with bi-V ICD placed at . She continues to follow-up with me in the office for cardiology/ electrophysiology. On her office visit on 09/06/2018 she complained of significant left upper extremity swelling as compared to the right upper extremity. Considering that she has multiple leads placed with the bi-V ICD, suspicion for venous high-grade stenosis/occlusion was very high. She was therefore scheduled for left upper extremity venogram and possible intervention. PROCEDURE PERFORMED: 1. Left upper extremity venogram from left basilic vein and follow through till the SVC. 2. Selective angiogram of the left axillary/subclavian vein. 3. Balloon venoplasty of the left axillary/subclavian vein. SPECIMENS: None. ANESTHESIA: Conscious sedation. BLOOD LOSS: 20 mL. COMPLICATIONS: None. CONTRAST USED: 42 ml. FLUOROSCOPY DOSE: 628 Mgy. FLUOROSCOPY TIME: 24.8 minutes. ANTICOAGULATION: IV heparin DESCRIPTION OF PROCEDURE: The patient was brought to the prosthetics lab technician after informed consent was taken. All the risks and complications were explained in detail. The patient was draped and prepped in the usual sterile fashion. Access was gained in the left upper extremity followed by left upper extremity venogram with follow-through to the SVC. We then cardiac axis with a 6 [place] sheath in the left basilic vein. A regular straight tipped glide catheter was advanced over a 035 Storq wire and placed in the proximal axillary vein and a selective venogram of the left axillary and subclavian vein performed. This is the same site of a biventricular ICD implantation with 3 leads going through the axillary vein. FINDINGS: Left axillary/subclavian vein occlusion RECOMMENDATIONS: Left axillary/subclavian vein angioplasty is recommended. INTERVENTIONAL DETAILS: 4000 units of IV heparin was given. We could not cross the occlusion with a stork wire therefore we placed the glide catheter in the left axillary vein and took a whisper 014 guidewire. We were able to cross the occlusion however we were not able to advance the glide catheter. We then took a [place] 35 4 x 40 balloon but were not able to cross the occlusion. We were ultimately able to cross with a [place] 18 2.0 x 40 balloon which was inflated at 8 kierra for 96 seconds. We then took [place] 35 4 x 40 but were still not able to cross, therefore we exchanged with a 018 command wire. The whisper wire was taken out. We were then able to cross with a [place] 18 4 x 80 balloon and performed 2 balloon angioplasties at 10 kierra for 147 and 137 seconds respectively. The balloon was taken out and we crossed with a [place] 35 10 x 60 balloon. We performed numerous balloon angioplasties from 2 kierra till 7 kierra for maximum of 74 seconds however there was a significant napkin ring waist, therefore we did not go any higher on the atmospheres. We replaced the command 018 wire with a 035 Glidewire. The 10 mm balloon was taken out and then we went in with an [place] 35 8 x 20 balloon and performed balloon angioplasty at 15 kierra for 3 minutes with excellent results. Mild 10-20 percent residual stenosis was noted. Patient tolerated procedure well and did not have any complication. At the end of the procedure the balloon and wires were taken out and selective angiograms showed recanalization of previous occlusion. The sheath was taken out and manual pressure held. CONCLUSION: 1. Left Axillary/subclavian vein occlusion. Successful balloon venoplasty. 2. Discharge in 4 hours on same outpatient medications. Lucila Wong MD, FACP, FACC, [facility] Vascular Medicine and Endovascular Interventions Janet WONG MD September 21, 2018 12:13
--- NOTE | 2018-09-21 12:13 | Cardiac Procedure Note-CS/ASA ---
Pre-Procedure Note Pre-Op Procedure Note H&P Reviewed The H&P was reviewed, patient examined and no changes noted. Date H&P Reviewed: September 21, 2018 Time H&P Reviewed: 09:00 Conscious Sedation Pre-Proced Time 09:00 ASA Score 3 For ASA 3 and 4: Consider anesthesia and medical clearance. Also, for patients with a history of failed moderate sedation consider anesthesia. Airway Lungs Heart ASA score ASA 1: a normal healthy patient ASA 2: a patient with a mild systemic disease (mid diabetes, controlled hypertension, obesity ASA 3: a patient with a severe systemic disease that limits activity (angina , COPD, prior Myocardial infarction) ASA 4: a patient with an incapacitating disease that is a constant threat to life (CHF, renal failure) ASA 5: a moribund patient not expected to survive 24 hrs. (ruptured aneurysm) ASA 6: a declared brain- patient whose organs are being harvested. For emergent operations, add the letter E after the classification Mallampati Classification Grade 1 Sedation Plan Analgesia, Amnesia, Plan communicated to team members, Discussed options with patient/fam, Discussed risks with patient/fam The patient is an appropriate candidate to undergo the planned procedure, sedation, and anesthesia. The patient immediately re-assessed prior to indication. Janet PLEITEZ MD September 21, 2018 12:13
[2018-09-21] MEDS ORDERED: PATIENT MAY USE OWN MEDS, ALL PO SCH (12:15)
--- NOTE | 2018-09-21 12:17 | Discharge Inst-Post CATH ---
Discharge Inst-CATH/EP Post Cardiac Cath/EP D/C Inst Follow Up/Plan Dr Wong in 6-8 weeks. <b>CARDIAC CATH/EP PROCEDURE DISCHARGE INSTRUCTIONS</b> Cardiac Rehab Please be expecting a follow up call from Cardiac Rehab within in one week. ACTIVITY * Go Home directly and rest. * Limit activity of the leg (or wrist if it was used) for 7 days including aerobics, swimming, jogging, bicycling, etc. * Restrict stair-climbing for 7 days if possible, if not, climb up with your non -cath leg, then bring together on the same step. * Avoid lifting, pushing, pulling or excessive movement of the affected extremity for 7 days. * Customary sexual activity may be resumed after 2 days-use caution not to use a position that strains or causes pain to the affected extremity. * No driving for 24 hours. * NO SMOKING. * Avoid straining for bowel movements for 7 days. * Gentle walking on level ground is allowed. * Returning to work will depend on the type of procedure and the results. Your doctor will discuss this with you. CALL YOUR DOCTOR FOR ANY OF THE FOLLOWING: *If bleeding from the puncture site occurs- Apply gentle pressure to site with clean cloth and call your doctor or EMS. * If a knot or lump forms under the skin, increases in size, or causes pain. * If bruising appears to be worsening or moving further down your leg instead of disappearing. * Temperature above 101 F. CARE OF YOUR GROIN INCISION; * Bruising or purple discoloration of the skin near the puncture site is common. * You may shower only, no bathtub bathing for 5 days. Be careful to avoid slipping as your leg may feel stiff. * If a closure device was used on your femoral artery, please see the attached guide regarding care of the device and your leg. * Leave dressing on FOR 24 hours. CARE OF YOUR WRIST INCISION; * Bruising or purple discoloration of the skin near the puncture site is common. * You may shower. * DO NOT submerge wrist. * Leave dressing on FOR 24 hours. Janet WONG MD September 21, 2018 12:16
--- NOTE | 2018-09-21 12:22 | Cardiology Discharge Summary ---
Diagnosis/Chief Complaint Date of Admission 09/21/2018 Date of Discharge 09/21/2018 Admission Diagnosis Left upper extremity swelling, left upper extremity venous occlusion Final/Discharge Diagnosis Left subclavian/axillary venous occlusion, successful balloon venoplasty. Chief Complaint/HPI Chief Complaint/HPI This is a 68-year-old lady with history of atrial fibrillation with rapid ventricular rate, severe LV systolic dysfunction with bi-V ICD placed at . She continues to follow-up with me in the office for cardiology/ electrophysiology. On her office visit on 09/06/2018 she complained of significant left upper extremity swelling as compared to the right upper extremity. Considering that she has multiple leads placed with the bi-V ICD, suspicion for venous high-grade stenosis/occlusion was very high. She was therefore scheduled for left upper extremity venogram and possible intervention. Discharge Summary Procedures Left axillary/subclavian venogram shows occluded distal axillary vein. Occlusive segment involves the proximal segment of the subclavian vein as well. Successful balloon venoplasty with 8 mm balloon with 10-20 percent residual stenosis. Discharge Physical Examination Unremarkable Hospital Course Was the Problem List Reviewed?: Yes Stable Pending Labs Laboratory Tests 09/21/18 08:04: White Blood Count 5.8, Red Blood Count 4.39, Hemoglobin 12.5, Hematocrit 40, Mean Corpuscular Volume 90, Mean Corpuscular Hemoglobin 29, Mean Corpuscular Hemoglobin Concent 32, Red Cell Distribution Width 14.1, Platelet Count 254, Mean Platelet Volume 10.6, Prothrombin Time 14.0, INR Comment 1.0, Activated Partial Thromboplast Time 42, Sodium Level 143, Potassium Level 3.6, Chloride Level 111, Carbon Dioxide Level 24, Anion Gap 8, Blood Urea Nitrogen 19, Creatinine 1.13, Estimat Glomerular Filtration Rate 58, BUN/Creatinine Ratio 17 , Glucose Level 100, Calcium Level 9.4, Corrected Calcium 9.2, Total Bilirubin 0.7, Aspartate Amino Transf (AST/SGOT) 13, Alanine Aminotransferase (ALT/SGPT) 16, Alkaline Phosphatase 110, Total Protein 7.2, Albumin 4.3 Discussion & Recommendations Discussion Discharge instructions will be discussed with the patient and family. Patient will follow-up in 6-8 weeks. Continue same medications. Follow up appt.: Dr. Wong in 6-8 weeks. Dicharge Diet: Cardiac Diet Activity as Tolerated: Yes Home Medications Reviewed patient Home Medication Reconciliation performed by pharmacy medication reconciliations decontamination technician and/or nursing. Patients Allergies have been reviewed. Discharge Home Medications: Reviewed and agree with Discharge Medication list on patient's Discharge Instruction sheet Condition at discharge Stable. Instructions to patient/family Dr Wong in 6-8 weeks. Janet WONG MD September 21, 2018 12:22
== END 2018-09-21 16:53 | disposition home or self-care (01) ==
LOC: CATH 07:43 → ICU 12:35 → CATH 16:53
PROVIDERS: ATTEND Internal Medicine Interventional Cardiology
DX: I82.A12 Acute embolism and thrombosis of left axillary vein (principal); I82.B12 Acute embolism and thrombosis of left subclavian vein; I42.9 Cardiomyopathy, unspecified; I48.0 Paroxysmal atrial fibrillation; I25.10 Atherosclerotic heart disease of native coronary artery without angina pectoris; E78.5 Hyperlipidemia, unspecified; I10 Essential (primary) hypertension; E04.1 Nontoxic single thyroid nodule; F41.0 Panic disorder [episodic paroxysmal anxiety]; Z95.810 Presence of automatic (implantable) cardiac defibrillator; Z95.5 Presence of coronary angioplasty implant and graft; Z88.5 Allergy status to narcotic agent; Z79.899 Other long term (current) drug therapy; Z79.01 Long term (current) use of anticoagulants; Z11.2 Encounter for screening for other bacterial diseases
CPT/HCPCS: 36415; 80053; 85027; 85610; 85730; 87081

== ENCOUNTER → 2018-10-19 | Outpatient (CLI) | payer MEDICARE ==
[~2018-10-19] MED LIST changes: +AMIO100T4 PO; +LISI-552 PO
--- NOTE | 2018-10-19 20:49 | Diagnostic Imaging Report ---
CLINICAL INDICATION: Patient had a catheterization in arm due to blockage, arm swelling. Pain sustained on left side x3-4 months. EXAM: X-ray of the cervical spine, 4 views. COMPARISON: None. FINDINGS: There is no acute cervical spine fracture. There is grade 1 anterolisthesis of C3 on C4 and C4 on C5 with no pars defect seen. There is moderately hypertrophic anterior spur at the C6-C7 level and mildly hypertrophic spur anteriorly at the C5-C6 level. There is moderate loss of intervertebral disc height at the C5-C6 level and C6-C7 level. There is facet arthropathy. There is no prevertebral soft tissue swelling. Odontoid views are unremarkable. IMPRESSION: 1: There is no acute cervical spine fracture. 2: There is cervical spine degenerative disease including grade 1 anterolisthesis C3 on C4 and C4 on C5. Dictated by: Dictated on workstation # [id number]
== END ==
LOC: RAD 15:47
PROVIDERS: ATTEND Nurse Practitioner Family
DX: M47.812 Spondylosis without myelopathy or radiculopathy, cervical region (principal); M43.12 Spondylolisthesis, cervical region; Z98.890 Other specified postprocedural states
CPT/HCPCS: 72040

== ENCOUNTER → 2019-05-21 | Outpatient (CLI) | payer MEDICARE, OTHER ==
--- NOTE | 2019-05-21 10:55 | Diagnostic Imaging Report ---
INDICATION: Routine screening. COMPARISON: 09/28/2017 and 10/04/2016. TECHNIQUE: 2D and 3D bilateral screening mammography was performed with CAD. FINDINGS: Both breasts remain heterogeneously dense, limiting the sensitivity of mammography. Scattered benign and parenchymal calcifications are again noted. The circumscribed densities in both breasts appear stable. No dominant mass or malignant appearing microcalcifications are seen. The axillae are unremarkable. IMPRESSION: No mammographic features suspicious for malignancy are identified. ACR BI-RADS Category 2: Benign findings. Result letter will be mailed to the patient. Note: At least 10% of breast cancer is not imaged by mammography. Dictated by: Dictated on workstation # [id number]
== END ==
LOC: RAD 07:16
PROVIDERS: ATTEND Nurse Practitioner Family
DX: Z12.31 Encounter for screening mammogram for malignant neoplasm of breast (principal)
CPT/HCPCS: 77067

== ENCOUNTER → 2019-06-11 | Outpatient (CLI) | payer MEDICARE ==
[~2019-06-11] MED LIST changes: +DILT-28 PO; -DILT180C90 PO
--- NOTE | 2019-06-11 08:27 | Diagnostic Imaging Report ---
INDICATION: Heart disease. FINDINGS: The heart size is upper limits of normal. A pacemaker overlies left hemithorax. There is no pleural effusion, pneumothorax or pneumonia. Lungs are clear. IMPRESSION: No acute cardiopulmonary abnormality. Mild cardiomegaly. Dictated by: Dictated on workstation # [id number]
[2019-06-11 08:39] LABS: ALANINE AMINOTRANSFERASE 10 U/L (0-55); ALBUMIN 4.1 GM/DL (3.2-4.5); ALKALINE PHOSPHATASE 95 U/L (40-136); BILIRUBIN,TOTAL 0.9 MG/DL (0.1-1.0); BUN/CREATININE RATIO 16; CALCIUM 9.1 MG/DL (8.5-10.1); CARBON DIOXIDE 23 MMOL/L (21-32); CHLORIDE 113 MMOL/L (98-107); GFR ESTIMATED > 60; GLUCOSE 97 MG/DL (70-105); POTASSIUM 3.5 MMOL/L (3.6-5.0); SODIUM 144 MMOL/L (135-145); TOTAL PROTEIN 6.9 GM/DL (6.4-8.2)
== END ==
LOC: RT 07:27
PROVIDERS: ATTEND Internal Medicine Interventional Cardiology
DX: Z51.81 Encounter for therapeutic drug level monitoring (principal); I48.91 Unspecified atrial fibrillation; I51.9 Heart disease, unspecified
CPT/HCPCS: 36415; 71046; 80053; 84443; 94060; 94726; 94729

== ENCOUNTER → 2019-09-27 | Outpatient (CLI) | payer MEDICARE ==
[2019-09-27 16:10] LABS: BASOPHILS % (AUTO) 0 % (0-10); EOSINOPHILS # (AUTO) 0.2 10^3/uL (0.0-0.3); EOSINOPHILS % (AUTO) 3 % (0-10); HEMATOCRIT 40 % (35-52); HEMOGLOBIN 12.5 G/DL (11.5-16.0); LYMPHOCYTES # (AUTO) 2.1 X 10^3 (1.0-4.0); LYMPHOCYTES % (AUTO) 37 % (12-44); MEAN CORPUSCULAR HEMOGLOBIN 29 PG (25-34); MEAN CORPUSCULAR HGB CONC 31 G/DL (32-36); MEAN CORPUSCULAR VOLUME 91 FL (80-99); MEAN PLATELET VOLUME 10.3 FL (7.4-10.4); MONOCYTES # (AUTO) 0.5 X 10^3 (0.0-1.0); MONOCYTES % (AUTO) 8 % (0-12); NEUTROPHILS % (AUTO) 51 % (42-75); PLATELET COUNT 239 10^3/uL (130-400); WHITE BLOOD COUNT 5.8 10^3/uL (4.3-11.0)
[2019-09-27 16:30] LABS: ALBUMIN 4.4 GM/DL (3.2-4.5)
[2019-09-27 16:31] LABS: POTASSIUM 3.8 MMOL/L (3.6-5.0)
[2019-09-27 16:32] LABS: CALCIUM 9.3 MG/DL (8.5-10.1)
[2019-09-27 16:33] LABS: TOTAL PROTEIN 7.6 GM/DL (6.4-8.2)
[2019-09-27 16:35] LABS: BILIRUBIN,TOTAL 0.8 MG/DL (0.1-1.0)
[2019-09-27 16:37] LABS: CREATININE SERUM 1.12 MG/DL (0.60-1.30)
== END ==
LOC: LAB 15:41
PROVIDERS: ATTEND Family Medicine
DX: E11.9 Type 2 diabetes mellitus without complications (principal); I10 Essential (primary) hypertension; I48.0 Paroxysmal atrial fibrillation; G60.3 Idiopathic progressive neuropathy
CPT/HCPCS: 36415; 80053; 82607; 82746; 83036; 84443; 85025

== ENCOUNTER → 2019-10-04 | Outpatient (CLI) | payer MEDICARE ==
[2019-10-04 09:13] LABS: ALANINE AMINOTRANSFERASE 40 U/L (0-55); ALBUMIN 3.9 GM/DL (3.2-4.5); ALKALINE PHOSPHATASE 155 U/L (40-136); BILIRUBIN,TOTAL 0.7 MG/DL (0.1-1.0); BUN/CREATININE RATIO 28; CALCIUM 8.9 MG/DL (8.5-10.1); CARBON DIOXIDE 19 MMOL/L (21-32); CHLORIDE 112 MMOL/L (98-107); CREATININE SERUM 0.99 MG/DL (0.60-1.30); GFR ESTIMATED > 60; GLUCOSE 131 MG/DL (70-105); POTASSIUM 3.9 MMOL/L (3.6-5.0); SODIUM 141 MMOL/L (135-145); TOTAL PROTEIN 6.7 GM/DL (6.4-8.2)
== END ==
LOC: LAB 08:34
PROVIDERS: ATTEND Internal Medicine Interventional Cardiology
DX: Z51.81 Encounter for therapeutic drug level monitoring (principal)
CPT/HCPCS: 36415; 80053; 84443

== ENCOUNTER → 2019-11-01 | Outpatient (CLI) | payer MEDICARE ==
[2019-11-01 16:28] LABS: POTASSIUM 4.1 MMOL/L (3.6-5.0)
[2019-11-01 16:29] LABS: CALCIUM 9.4 MG/DL (8.5-10.1)
[2019-11-01 16:30] LABS: TOTAL PROTEIN 7.1 GM/DL (6.4-8.2)
[2019-11-01 16:32] LABS: BILIRUBIN,TOTAL 0.6 MG/DL (0.1-1.0)
[2019-11-01 16:34] LABS: CREATININE SERUM 1.35 MG/DL (0.60-1.30)
== END ==
LOC: LAB 15:39
PROVIDERS: ATTEND Family Medicine
DX: I10 Essential (primary) hypertension (principal); G60.3 Idiopathic progressive neuropathy; I48.0 Paroxysmal atrial fibrillation; E55.9 Vitamin D deficiency, unspecified
CPT/HCPCS: 36415; 80053; 82306

== ENCOUNTER → 2019-12-19 | Outpatient (CLI) | payer MEDICARE ==
[~2019-12-19] MED LIST changes: +BENZ100C18 PO; +ONDA4TAB11 PO
== END ==
LOC: LABNPT 08:29
PROVIDERS: ATTEND Family Medicine
DX: R05 Cough (principal); Z20.828 Contact with and (suspected) exposure to other viral communicable diseases
CPT/HCPCS: 87635

== ENCOUNTER → 2019-12-19 | Outpatient (CLI) | payer MEDICARE ==
--- NOTE | 2019-12-19 16:51 | Diagnostic Imaging Report ---
Indication: Cough and shortness of breath PA and lateral chest There is a dual-chamber pacemaker. Heart size and pulmonary vascularity are normal. Lungs are clear. There are no effusions or pneumothoraces. IMPRESSION: No acute abnormalities in the chest Dictated by: Dictated on workstation # [id number]
--- NOTE | 2019-12-20 07:34 | NUR ---
Notified patient of positive COVID test. Left Message with Dr Nance to call me back.
== END ==
LOC: RAD 16:02
PROVIDERS: ATTEND Nurse Practitioner Family
DX: R05 Cough (principal); R06.02 Shortness of breath
CPT/HCPCS: 71046

== ENCOUNTER 2019-12-20 10:22 | Emergency (ER) | payer MEDICARE ==
[~2019-12-20] VITALS: Ht 170 cm; Wt 112.9 kg
[~2019-12-20 10:22] MED LIST changes: -BENZ100C18 PO; -ONDA4TAB11 PO
--- OUTSIDE RECORDS SUMMARY | 2019-12-20 10:41 | XMS REPORT | CCD ---
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 Name Role Phone PP Unavailable CCM Unavailable Summary Purpose Interface Exchange Insurance Providers Payer name Policy type / Coverage type Covered democrat ID Effective Begin Date Effective End Date [employer] Commercial Insurance [id number] Unknown Family history Mother Diagnosis Age At Onset Diabetes mellitus Type 2 Unknown Hypertension Unknown Colon cancer Unknown Alcoholism Unknown Hyperlipidemia Unknown Social History Social History Element Codes Description Effective Dates Marital status Unknown M arried González 09/29/2017 Number of children Unknown 3 09/29/[address]: 257136719 Never smoker 09/29/[address]: 318111148 Never drinks alcohol 09/29/2017 Has the patient ever used illegal drugs? Unknown Has never used illegal drugs 018 Allergies, Adverse Reactions, Alerts Substance Reaction Codes Entered Date Inactivated Date Status CODEINE RxNorm: 2670 09/29/2017 No Inactive Date Active demerol RxNorm: 887086 09/29/2017 No Inactive Date Active MORPHINE SULFATE RxNorm: 7052 09/29/2017 No Inactive Date Active Past Medical History Illness Codes Condition Status Onset Date Resolved Date Cervicalgia ICD-9: 723.1 ICD-10: M54.2 Active 10/19/2018 Unknown Dysuria ICD-9: 788.1 ICD-10: R30.0 Active 2018 Unknown Essential (primary) hypertension ICD-9: 401.1 ICD-10: I10 Active 09/29/2017 Unknown Low back pain ICD-9: 724.2 ICD-10: M54.5 Active 09/29/2017 Unknown Paroxysmal atrial fi brillation ICD-9: 427.31 ICD-10: I48.0 Active 09/29/2017 Unknown Personal history of urinary calculi ICD-9: V13.01 ICD-10: Z87.442 Active 2018 Unknown Urinary tract infect ion, site not specified ICD-9: 599.0 ICD-10: N39.0 Active 2018 Unknown Diabetes Unknown Active 09/29/2017 Unknow n Type 2 diabetes [place] itus without complications ICD-9: 250.00 ICD-10: E11.9 Active 09/29/2017 Unknown Problems Condition Codes Effectiv e Dates Condition Status Cervicalgia ICD-9: 723.1 ICD-10: M54.2 10/19/2018 Active Dysuria ICD-9: 788.1 ICD-10: R30.0 2018 Active Essential (primary) hypertension ICD-9: 401.1 ICD-10: I10 09/29/2017 Active Low back pain ICD-9: 724.2 ICD-10: M54.5 09/29/2017 Active Paroxysmal atrial fi brillation ICD-9: 427.31 ICD-10: I48.0 09/29/2017 Active Personal history of urinary calculi ICD-9: V13.01 ICD-10: Z87.442 2018 Active Urinary tract infect ion, site not specified ICD-9: 599.0 ICD-10: N39.0 2018 Active Diabetes Unknown 09/29/2017 Active Type 2 diabetes parish itus without complications ICD-9: 250.00 ICD-10: E11.9 09/29/2017 Active Medications Medication Codes Instruc tions Start Date Stop Date Sta tus Fill Instructions cyclobenzaprine 5 mg tablet RxNorm: 345062 1 Tablet(s) PO TID as needed muscle spasms 10/19/2018 10/23/2018 Inactive gabapentin 100 mg ca psule RxNorm: 507118 1 Capsule(s) PO TID a s needed for pain 10/19/2018 11/17/2018 Ac tive lisinopril 20 mg tablet RxNorm: 978997 1 Tablet(s) PO daily 07/21/2018 07/15/2019 Active carvedilol 25 mg tablet RxNorm: 562828 1 Tablet(s) PO BID 07/21/2018 07/15/2019 Active furosemide 20 mg tablet RxNorm: 983717 1 Tablet(s) PO daily 07/21/2018 07/15/2019 Active Zantac 150 mg tablet RxNorm: 127559 1 Tablet(s) PO BID 07/21/2018 10/18/2018 Inactive ranitidine 150 mg ca psule RxNorm: 338788 1 Capsule(s) PO BID 07/21/2018 07/21/2018 Inactive isosorbide mononitra te ER 60 mg tablet,extended release 24 hr RxNorm: 160265 1 Tablet(s) PO daily 06/19/2018 06/13/2019 Active ranitidine 150 mg ca psule RxNorm: 711713 1 Capsule(s) PO BID 05/12/2018 07/20/2018 Inactive atorvastatin 20 mg t ablet RxNorm: 331603 1 Tablet(s) PO QHS 04/18/2018 04/12/2019 Active furosemide 20 mg tablet RxNorm: 105537 1 Tablet(s) PO daily 04/18/2018 07/20/2018 Inactive carvedilol 25 mg tablet RxNorm: 238845 1 Tablet(s) PO BID 04/18/2018 07/20/2018 Inactive lisinopril 20 mg tablet RxNorm: 270041 1 Tablet(s) PO daily 04/18/2018 07/20/2018 Inactive isosorbide mononitra te ER 60 mg tablet,extended release 24 hr RxNorm: 705932 1 Tablet(s) PO daily 04/18/2018 06/18/2018 Inactive isosorbide mononitra te ER 60 mg tablet,extended release 24 hr RxNorm: 684239 1 Tablet(s) PO daily 03/21/2018 04/17/2018 Inactive carvedilol 25 mg tablet RxNorm: 227513 1 Tablet(s) PO BID 03/21/2018 04/17/2018 Inactive atorvastatin 20 mg t ablet RxNorm: 786490 1 Tablet(s) PO QHS 03/16/2018 04/17/2018 Inactive furosemide 20 mg tablet RxNorm: 231106 1 Tablet(s) PO daily 03/16/2018 04/17/2018 Inactive atorvastatin 20 mg t ablet RxNorm: 368455 1 Tablet(s) PO QHS 02/17/2018 03/15/2018 Inactive Keflex 500 mg capsule RxNorm: 591817 1 Capsule(s) PO QID 2018 01/31/2018 Inactive lisinopril 20 mg tablet RxNorm: 638226 1 Tablet(s) PO daily 01/18/2018 04/17/2018 Inactive lisinopril 20 mg tablet RxNorm: 178320 1 Tablet(s) PO daily 01/13/2018 01/17/2018 Inactive Eliquis 5 mg tablet RxNorm: 5607942 1 Tablet(s) PO BID No Start Date Active Multaq 400 mg tablet RxNorm: 478397 1 Tablet(s) PO BID No Start Date Active alprazolam 0.25 mg t ablet RxNorm: 980132 1 Tablet(s) PO Q6 as needed No Start Date Active ferrous sulfate 325 mg (65 mg iron) tablet RxNorm: 671013 1 Tablet(s) PO BID No Start Date Active Cartia XT 180 mg cap yesy,extended release RxNorm: 292413 1 Capsule(s) PO daily No Start Date Active furosemide 20 mg tablet RxNorm: 293703 1 Tablet(s) PO daily No Start Date 03/15/2018 Inactive atorvastatin 20 mg t ablet RxNorm: 376500 1 Tablet(s) PO QHS No Start Date 02/16/2018 Inactive lisinopril 20 mg tablet RxNorm: 047264 1 Tablet(s) PO daily No Start Date 01/12/2018 Inactive ranitidine 150 mg ca psule RxNorm: 884999 1 Capsule(s) PO BID No Start Date 05/11/2018 Inactive isosorbide mononitra te ER 60 mg tablet,extended release 24 hr RxNorm: 674052 1 Tablet(s) PO daily No Start Date 03/20/2018 Inactive carvedilol 25 mg tablet RxNorm: 506021 1 Tablet(s) PO BID No Start Date 03/20/2018 Inactive Medication Administered No Medication Administered data Immunizations Vaccine Codes Date Status Tetanus, Diptheria, Pertussis CVX: 113 08/15/2015 completed Tetanus/Diptheria CVX: 113 08/15/2015 completed Assessments Condition Codes Effectiv e Dates Cervicalgia ICD-10: M54.2 ICD-9: 723.1 10/19/2018 Dysuria ICD-10: R30.0 ICD-9: 788.1 2018 Paroxysmal atrial fibrillation ICD-1 0: I48.0 ICD-9: 427.31 2018 Urinary tract infection, site not specified ICD-10: N39.0 ICD-9: 599.0 2018 Essential (primary) hypertension ICD -10: I10 ICD-9: 401.1 2018 Low back pain ICD-10: M54.5 ICD-9: 724.2 2018 Personal history of urinary calculi ICD-10: Z87.442 ICD-9: V13.01 2018 Type 2 diabetes mellitus without complications ICD-10: E11.9 ICD-9: 250.00 09/29/2017 Reason For Visit Reason For Visit Effective Dates Notes neck and arm pain 10/19/2018 low back pain 2018 low back pain [...] 29.6 pg 04/10/2018 Cbc With Differential Ord2 Steele% 11.6 % 04/10/2018 Cbc With Differential Ord2 [...] 1.50 K/ul 04/10/2018 Cbc With Differential Ord2 Steele ABS# 0.6 K/ul 04/10/2018 Cbc With Differential Ord2 Eos ABS# 0.1 K/ul 04/10/2018 Cbc With Differential Ord2 Baso ABS# 0.0 K/ul 04/10/2018 %Hba1C Ydg930 % HbA1c 44274-5 5.4 % 04/10/2018 %Hba1C Iif078 Gluc Ave 108 mg/dL 04/10/2018 Tsh Ord6 TSH (3rd IS) 3.65 uIU/mL 03/01/2018 Lipid Ord30 CHOL 137 mg/dL 03/01/2018 Lipid Ord30 HDL 50.0 mg/dl 03/01/2018 Lipid Ord30 TRIG 75 mg/dL 03/01/2018 Lipid Ord30 LDL 72 mg/dL 03/01/2018 Lipid Ord30 C/HDL 2.7 Ratio 03/01/2018 Comp Metabolic Nqi748 NA 144 mEq/L 03/01/2018 Comp Metabolic Epo000 K 3.6 mEq/L 03/01/2018 Comp Metabolic Huj476 CL 111 mEq/L 03/01/2018 Comp Metabolic Ypd022 CO2 23.0 mEq/L 03/01/2018 Comp Metabolic Rer633 AN ION GAP 14 03/01/2018 Comp Metabolic Yvz293 GL UCOSE 103 mg/dL 03/01/2018 Comp Metabolic Dzc507 Cr eat 0.9 mg/dL 03/01/2018 Comp Metabolic Asc132 eG FR 67 ml/min/1.73m2 03/01 Comp Metabolic Tng678 BUN 15 mg/dL 03/01/2018 Comp Metabolic Btl631 B/ C Ratio 16.9 Ratio 03/01/2018 Comp Metabolic Pmm396 CA LCIUM 9.4 mg/dL 03/01/2018 Comp Metabolic Jrb307 AL K PHOS 85 U/L 03/01/2018 Comp Metabolic Rvz729 T(SGOT) 14 U/L 03/01/2018 Comp Metabolic Lww430 AL T(SGPT) 12 U/L 03/01/2018 Comp Metabolic Agh141 BI LI T 0.9 mg/dL 03/01/2018 Comp Metabolic Bss022 AL BUMIN 4.2 g/dL 03/01/2018 Comp Metabolic Muk491 TP RO 6.5 g/dL 03/01/2018 Comp Metabolic Wiy136 GL OB 2.3 g/dL 03/01/2018 Comp Metabolic Dgt253 A/ G Ratio 1.8 Ratio 03/01/2018 Comp Metabolic Mac076 Os mo 288 mOsmo 03/01/2018 Culture Urine [id number] URI NE CULTURE SEE NOTES 01/30/2018 Culture Urine [id number] Con tinued Results 01/30/2018 Urine Culture Ucult Comp lete >100,000 col/ml aerobic grow th sent to ref lab 01/26/2018 %Hba1C Wmn531 % HbA1c 08134-9 5.6 % 09/30/2017 %Hba1C Aaa001 Gluc Ave 114 mg/dL 09/30/2017 Review of Systems System Result Effective Dates Constitutional No recent illness 10/19/2018 Constitutional No chills 10/19/2018 Constitutional No fever 10/19/2018 Eyes No eye erythema 10/2018 Ears/Nose/Throat/Neck No nasal discharge 10/19/2018 Cardiovascular No chest pain/pressure 10/19/2018 Cardiovascular No dyspnea 10/19/2018 Respiratory No cough 10/2018 Respiratory No dyspnea 0 10/19/2018 Neurologic No alteration of consciousness 10/19/2018 Neurologic No mental status change 10/19/2018 Musculoskeletal neck pain 10/19/2018 Musculoskeletal back pain 10/19/2018 Constitutional recent illness 2018 Constitutional No night sweats 2018 Constitutional No fatigue 2018 Constitutional No fever 2018 Constitutional No weight loss 2018 Eyes No eye pain 018 Ears/Nose/Throat/Neck No dizziness 2018 Ears/Nose/Throat/Neck No hearing loss 2018 Ears/Nose/Throat/Neck No hoarseness 2018 Ears/Nose/Throat/Neck No taste change 2018 Ears/Nose/Throat/Neck No tinnitus 2018 Ears/Nose/Throat/Neck No voice change 2018 Cardiovascular No claudication 2018 Cardiovascular No dyspnea 2018 Cardiovascular edema 04/2018 Cardiovascular exercise intolerance 2018 Cardiovascular No fatigue 2018 Cardiovascular hypertension 2018 Cardiovascular No near-syncope/dizziness 2018 Cardiovascular orthopnea 2018 Cardiovascular palpitations 2018 Cardiovascular No paroxysmal noct[place] dyspnea 2018 Respiratory No asthma Respiratory No pleuritic pain 2018 Respiratory No productive sputum 2018 Respiratory No apneic events 2018 Respiratory No cough 04/2018 Respiratory No wheezing 2018 Gastrointestinal No constipation 2018 Gastrointestinal No dysphagia 2018 Gastrointestinal gastroesophageal reflux 2018 Gastrointestinal No nausea 2018 Genitourinary/Nephrology urinary urgency 2018 Genitourinary/Nephrology urinary frequency 2018 Musculoskeletal swelling 2018 Musculoskeletal back pain 2018 Neurologic pain, back Psychiatric No alcohol abuse 2018 Psychiatric No anxiety 0 2018 Psychiatric No depression 2018 Psychiatric No disturbances of thinking 2018 Endocrine weakness 01/25 Endocrine weight gain Endocrine diabetes mellitus type 2 2018 Genitourinary/Nephrology dysuria 2018 Constitutional recent illness 09/29/2017 Constitutional No night sweats 09/29/2017 Constitutional No fever 09/29/2017 Constitutional No fatigue 09/29/2017 Constitutional No weight loss 09/29/2017 Eyes No eye pain 018 Eyes eye floaters 2017 Eyes vision change 09/29 Ears/Nose/Throat/Neck No dizziness 09/29/2017 Ears/Nose/Throat/Neck No hearing loss 09/29/2017 Ears/Nose/Throat/Neck No hoarseness 09/29/2017 Ears/Nose/Throat/Neck snoring 09/29/2017 Ears/Nose/Throat/Neck No tinnitus 09/29/2017 Ears/Nose/Throat/Neck No taste change 09/29/2017 Ears/Nose/Throat/Neck No voice change 09/29/2017 Cardiovascular chest pain/pressure 09/29/2017 Cardiovascular No dyspnea 09/29/2017 Cardiovascular No claudication 09/29/2017 Cardiovascular edema Cardiovascular exercise intolerance 09/29/2017 Cardiovascular No fatigue 09/29/2017 Cardiovascular hypertension 09/29/2017 Cardiovascular No near-syncope/dizziness 09/29/2017 Cardiovascular orthopnea 09/29/2017 Cardiovascular palpitations 09/29/2017 Cardiovascular No paroxysmal nocturn al dyspnea 09/29/2017 Respiratory No asthma Respiratory No pleuritic pain 09/29/2017 Respiratory No productive sputum 09/29/2017 Respiratory No apneic events 09/29/2017 Respiratory No cough Respiratory No wheezing 09/29/2017 Respiratory snoring 09/13 Respiratory orthopnea Respiratory pedal edema 09/29/2017 Gastrointestinal No dysphagia 09/29/2017 Gastrointestinal No constipation 09/29/2017 Gastrointestinal diarrhea 09/29/2017 Gastrointestinal dyspepsia 09/29/2017 Gastrointestinal gastroesophageal reflux 09/29/2017 Gastrointestinal No nausea 09/29/2017 Genitourinary/Nephrology urinary urgency 09/29/2017 Genitourinary/Nephrology urinary frequency 09/29/2017 Musculoskeletal swelling 09/29/2017 Musculoskeletal back pain 09/29/2017 Musculoskeletal sciatica 09/29/2017 Dermatologic pigmentation change 09/29/2017 Dermatologic acrochordon (skin tags) 09/29/2017 Endocrine weight gain Endocrine diabetes mellitus type 2 09/29/2017 Endocrine hair loss 09/13 Endocrine cold sensitivity 09/29/2017 Endocrine weakness 09/29 Neurologic pain, back Neurologic neck pain Neurologic vision change 09/29/2017 Psychiatric No alcohol abuse 09/29/2017 Psychiatric No anxiety 0 09/29/2017 Psychiatric No depression 09/29/2017 Psychiatric No disturbances of thinking 09/29/2017 Hematologic/Lymphatic No venous thrombosis 09/29/2017 Hematologic/Lymphatic No pulmonary embolus 09/29/2017 Allergy/Immunology anaphylactoid reaction 09/29/2017 Physical Exam Exam Name System Name It em Name Status Result Effective Dates Notes Full Exam - Orthopedics Constitutional general appearance Overall: well nourished 10/19/2018 None Full Exam - Orthopedics Constitutional general appearance Overall: well developed 10/19/2018 None Full Exam - Orthopedics Constitutional general appearance Overall: in no acute distress 10/19/2018 None Full Exam - Orthopedics Eyes conjunctiva/eyelids Overall: conjunctiva clear 10/19/2018 None Full Exam - Orthopedics Eyes conjunctiva/eyelids Overall: eyelids normal 10/19/2018 None Full Exam - Orthopedics Ears/Nose/Throat lips/teeth/gingiva Overall: benign lips 10/19/2018 None Full Exam - Orthopedics Ears/Nose/Throat oral cavity/pharynx/larynx Overall: oral mucosa clear 10/19/2018 None Full Exam - Orthopedics Respiratory respiratory effort/rhythm Overall: no retractions 10/19/2018 None Full Exam - Orthopedics Respiratory respiratory effort/rhythm Overall: normal rate 10/19/2018 None Full Exam - Orthopedics Psychiatric orientation/consciousness Overall: oriented to person, place and time 10/19/2018 None Full Exam - Orthopedics Psychiatric mood and affect Overall: normal mood and affect 10/19/2018 None Full Exam - Orthopedics Psychiatric appearance Overall: well-groomed, good eye contact 10/19/2018 None Full Exam - Orthopedics MS: head/neck insp & palp - H/N Overall: head atraumatic 10/19/2018 None Full Exam - Orthopedics MS: head/neck insp & palp - H/N Cervical spine palpation: tender facet joints 10/19/2018 None Full Exam - Orthopedics MS: head/neck insp & palp - H/N Cervical spine palpation: tender spinous processes 10/19/2018 None Full Exam - Orthopedics MS: head/neck insp & palp - H/N Cervical muscles palpation: tender left paracervical 10/19/2018 None Full Exam - General 1994 Constitutional general appearance Overall: well developed 2018 None Full Exam - General 1994 Constitutional general appearance Overall: in no acute distress 2018 None Full Exam - General 1994 Constitutional general appearance Overall: well nourished 2018 None Full Exam - General 1994 Eyes conjunctiva/eyelids Overall: conjunctiva clear 2018 None Full Exam [...] None Full Exam - General 1994 Eyes conjunctiva/eyelids Overall: conjunctiva clear 09/29/2017 None Full Exam - General 1994 Eyes pupils and irises Overall: pupils equal, round, reactive to light and accomodation 09/29/2017 None Procedures Procedure Codes Date URINALYSIS NONAUTO W /O SCOPE CPT-4: 70626 2018 Vital Signs Date Vital 10/19/2018 BMI: 37.7 Code: 96952-9 Heart Rate 1: 79 bpm Height: 5'8" SpO2: 99% Weight: 244 lbs 2018 Blood Pressure 1: 132/64 Code: 8480-6 BMI: 36.7 Code: 18333-7 Heart Rate 1: 62 bpm Height: 5'8" SpO2: 96% Weight: 238 lbs 09/29/2017 Blood Pressure 1: 124/76 Code: 8480-6 BMI: 36.8 Code: 62119-7 Heart Rate 1: 83 bpm Height: 5'8" SpO2: 98% Weight: 238 lbs 8 oz Functional Status No Functional Status data History of Present Illness Symptom Name Status Resu lt Effective Date Notes Location shoulder region 10/19/2018 None Location nonfocal 10/19/2018 None Radiating down the lef t arm 10/19/2018 None Quality dull pain 10/19/2018 None Quality constant 10/19/2018 None Quality discomfort 10/19/2018 None Quality numbness 10/19/2018 None Quality tingling 10/19/2018 None Quality squeezing 10/19/2018 None Onset and Resolution s udden in onset 10/19/2018 None Onset of Symptom 2 mon ths ago 10/19/2018 None low back pain Quality ch ronic 2018 None low back pain Quality in termittent 2018 None low back pain Onset and Resolution ongoing 2018 None low back pain Onset of Symptom 28 years ago 2018 None low back pain Limitation on Activities allows weight bearing activity 2018 None low back pain Severity m ild 2018 None low back pain Frequency of Episodes on and off 2018 None low back pain Significant Medical Co nditions obesity 2018 None low back pain Pertinent Findings female 2018 None hypertension Quality con stant 2018 None hypertension Onset and Resolution ongoing 2018 None hypertension Onset of Symptom during adulthood 2018 None diabetes mellitus Onset of Symptom onset as an adult 2018 None low back pain Quality ch ronic 09/29/2017 None low back pain Quality in termittent 09/29/2017 None low back pain Onset and Resolution ongoing 09/29/2017 None low back pain Onset of Symptom 28 years ago 09/29/2017 None low back pain Limitation on Activities allows weight bearing activity 09/29/2017 None low back pain Severity m ild 09/29/2017 None low back pain Frequency of Episodes on and off 09/29/2017 None low back pain Significant Medical Co nditions obesity 09/29/2017 None low back pain Mechanism of injury unknown 09/29/2017 None low back pain Sports Participation not significant 09/29/2017 None low back pain Pertinent Findings female 09/29/2017 None Advance Directives No Advance Directive data Encounters Encounter Performer Loca tion Codes Date 78446 EST. PATIENT, LEVEL III Diagnosis: Cervicalgia[ICD10: M54.2] Martha Nance MD, [facility] CPT-4: 14137 10/19/2018 [id number] 15451 EST. P ATIENT, LEVEL IV Diagnosis: Essential (primary) hypertension[ICD10: I10] Diagnosis: Low back pain[ICD10: M54.5] Diagnosis: Dysuria[ICD10: R30.0] Diagnosis: Personal history of urinary calculi[ICD10: Z87.442] Diagnosis: Paroxysmal atrial fibrillation[ICD10: I48.0] Diagnosis: Urinary tract infection, site not specified[ICD10: N39.0] Katelynn Nance MD, [facility] CPT-4: 31598 2018 OFFICE VISIT, NEW - LEVEL 3 Diagnosis: Essential (primary) hypertension[ICD10: I10] Diagnosis: Type 2 diabetes mellitus without complications[ICD10: E11.9] Diagnosis: Low back pain[ICD10: M54.5] Diagnosis: Paroxysmal atrial fibrillation[ICD10: I48.0] [facility] CPT-4: 46847 09/29/2017 Plan of Care Planned Activity Notes C odes Status Date Care Plan: X-RAY EXAM NECK SPINE 2-3 VW LOINC : 46884-4 Pending 10/23/2018 Visit Plan: Neck Pain- pt to start with aspercreme or biofreeze to neck three times daily and start neck exercises daily. 10/19/2018 Appointment: Martha Linn WPtel: [id number] (15 min) Moderate 10/19/2018 Patient Education: Patient Medication Summary Completed 10/19/2018 Patient Education: .Cervicalgia Neck Pain Completed 10/19/2018 Visit Plan: Hypertension - well con trolled - continue with current medications, continue with [...] culture ordered - keflex rx sent to [facility]. 2018 Appointment: Katelynn Nance WPtel: [phone] [facility] [place] (15 min) Moderate 2018 Patient Education: Patient Medication Summary Completed 2018 Patient Education: Back Pain Completed 2018 Care Plan: X-RAY EXAM L-S SPINE 2/3 VWS LOINC : 10297-5 Pending 2018 Visit Plan: Hypertension - well con trolled - continue with current medications, continue with [...] Layne 09/29/2017 Appointment: Hayley Metcalf WPtel[phone] New Patient 09/29/2017 Patient Education: Patient Medication Summary Completed 09/29/2017 Instructions Comment . Hypertension - wel l controlled - continue with current medications, continue [...] culture ordered - keflex rx sent to [facility]. RECOMMEND PROBIOTIC TWICE DAILY FOR LOOSE STOOLS IF SYMPTOMS PERSIST CHECK UA -CALL IF BACK PAIN WORSENS CHECK HGB A1C . Hypertension - well controlled - phil nue with current medications, continue with no added [...] stones-check UA Afib-on eliquis-managed by Dr Layne will check neck x-ra y start flexeril as needed for muscle spasms in the back - be cautious it can make you sleepy gabapentin for nerve pain - 1 pill at night then if no improvement in pain can increase to 3 pills daily - be cautious it can also make you sleepy . Neck Pain- pt to start with aspercreme or biofreeze to neck three times daily and start neck exercises daily.
--- OUTSIDE RECORDS SUMMARY | 2019-12-20 10:41 | XMS REPORT | CCD ---
Author Author Brigitte Metcalf Organization Katelynn Nance MD, [facility] Address [address] [place] [address] Phone Care Team Providers Care Clinical Courier Name Role Phone PP Unavailable CCM Unavailable Summary Purpose Interface Exchange Insurance Providers Payer name Policy type / Coverage type Covered libertarian ID Effective Begin Date Effective End Date [employer] Commercial Insurance [id number] Unknown Family history Mother Diagnosis Age At Onset Diabetes mellitus Type 2 Unknown Hypertension Unknown Colon cancer Unknown Alcoholism Unknown Hyperlipidemia Unknown Social History Social History Element Codes Description Effective Dates Marital status Unknown M arried González 09/29/2017 Number of children Unknown 3 09/29/[address]: 627532828 Never smoker 09/29/[address]: 359450945 Never drinks alcohol 09/29/2017 Has the patient ever used illegal drugs? Unknown Has never used illegal drugs 018 Allergies, Adverse Reactions, Alerts Substance Reaction Codes Entered Date Inactivated Date Status CODEINE RxNorm: 2670 09/29/2017 No Inactive Date Active demerol RxNorm: 929782 09/29/2017 No Inactive Date Active MORPHINE SULFATE [...] Fill Instructions cyclobenzaprine 5 mg tablet RxNorm: 524837 1 Tablet(s) PO TID as needed muscle spasms 10/19/2018 10/23/2018 Inactive gabapentin 100 mg ca psule RxNorm: 891328 1 Capsule(s) PO TID a s needed for pain 10/19/2018 11/17/2018 Ac tive lisinopril 20 mg tablet RxNorm: 993828 1 Tablet(s) PO daily 07/21/2018 07/15/2019 Active carvedilol 25 mg tablet RxNorm: 611847 1 Tablet(s) PO BID 07/21/2018 07/15/2019 Active furosemide 20 mg tablet RxNorm: 780708 1 Tablet(s) PO daily 07/21/2018 07/15/2019 Active Zantac 150 mg tablet RxNorm: 457135 1 Tablet(s) PO BID 07/21/2018 10/18/2018 Inactive ranitidine 150 mg ca psule RxNorm: 484991 1 Capsule(s) PO BID 07/21/2018 07/21/2018 Inactive isosorbide mononitra te ER 60 mg tablet,extended release 24 hr RxNorm: 011713 1 Tablet(s) PO daily 06/19/2018 06/13/2019 Active ranitidine 150 mg ca psule RxNorm: 679966 1 Capsule(s) PO BID 05/12/2018 07/20/2018 Inactive atorvastatin 20 mg t ablet RxNorm: 103137 1 Tablet(s) PO QHS 04/18/2018 04/12/2019 Active furosemide 20 mg tablet RxNorm: 800104 1 Tablet(s) PO daily 04/18/2018 07/20/2018 Inactive carvedilol 25 mg tablet RxNorm: 614074 1 Tablet(s) PO BID 04/18/2018 07/20/2018 Inactive lisinopril 20 mg tablet RxNorm: 511079 1 Tablet(s) PO daily 04/18/2018 07/20/2018 Inactive isosorbide mononitra te ER 60 mg tablet,extended release 24 hr RxNorm: 762211 1 Tablet(s) PO daily 04/18/2018 06/18/2018 Inactive isosorbide mononitra te ER 60 mg tablet,extended release 24 hr RxNorm: 713575 1 Tablet(s) PO daily 03/21/2018 04/17/2018 Inactive carvedilol 25 mg tablet RxNorm: 351856 1 Tablet(s) PO BID 03/21/2018 04/17/2018 Inactive atorvastatin 20 mg t ablet RxNorm: 440291 1 Tablet(s) PO QHS 03/16/2018 04/17/2018 Inactive furosemide 20 mg tablet RxNorm: 864793 1 Tablet(s) PO daily 03/16/2018 04/17/2018 Inactive atorvastatin 20 mg t ablet RxNorm: 450996 1 Tablet(s) PO QHS 02/17/2018 03/15/2018 Inactive Keflex 500 mg capsule RxNorm: 736390 1 Capsule(s) PO QID 2018 01/31/2018 Inactive lisinopril 20 mg tablet RxNorm: 639286 1 Tablet(s) PO daily 01/18/2018 04/17/2018 Inactive lisinopril 20 mg tablet RxNorm: 952247 1 Tablet(s) PO daily 01/13/2018 01/17/2018 Inactive Eliquis 5 mg tablet RxNorm: 7014121 1 Tablet(s) PO BID No Start Date Active Multaq 400 mg tablet RxNorm: 708699 1 Tablet(s) PO BID No Start Date Active alprazolam 0.25 mg t ablet RxNorm: 552286 1 Tablet(s) PO Q6 as needed No Start Date Active ferrous sulfate 325 mg (65 mg iron) tablet RxNorm: 396097 1 Tablet(s) PO BID No Start Date Active Cartia XT 180 mg cap yesy,extended release RxNorm: 713191 1 Capsule(s) PO daily No Start Date Active furosemide 20 mg tablet RxNorm: 586475 1 Tablet(s) PO daily No Start Date 03/15/2018 Inactive atorvastatin 20 mg t ablet RxNorm: 674745 1 Tablet(s) PO QHS No Start Date 02/16/2018 Inactive lisinopril 20 mg tablet RxNorm: 608532 1 Tablet(s) PO daily No Start Date 01/12/2018 Inactive ranitidine 150 mg ca psule RxNorm: 770397 1 Capsule(s) PO BID No Start Date 05/11/2018 Inactive isosorbide mononitra te ER 60 mg tablet,extended release 24 hr RxNorm: 469767 1 Tablet(s) PO daily No Start Date 03/20/2018 Inactive carvedilol 25 mg tablet RxNorm: 198193 1 Tablet(s) PO BID No Start Date [...] 29.6 pg 04/10/2018 Cbc With Differential Ord2 [place]% 11.6 % 04/10/2018 Cbc With Differential Ord2 [...] 1.50 K/ul 04/10/2018 Cbc With Differential Ord2 [place] ABS# 0.6 K/ul 04/10/2018 Cbc With Differential Ord2 Eos ABS# 0.1 K/ul 04/10/2018 Cbc With Differential Ord2 Baso ABS# 0.0 K/ul 04/10/2018 %Hba1C Itd923 % HbA1c 76266-6 5.4 % 04/10/2018 %Hba1C Guv905 Gluc Ave 108 mg/dL 04/10/2018 Tsh Ord6 TSH (3rd IS) 3.65 uIU/mL 03/01/2018 Lipid Ord30 CHOL 137 mg/dL 03/01/2018 Lipid Ord30 HDL 50.0 mg/dl 03/01/2018 Lipid Ord30 TRIG 75 mg/dL 03/01/2018 Lipid Ord30 LDL 72 mg/dL 03/01/2018 Lipid Ord30 C/HDL 2.7 Ratio 03/01/2018 Comp Metabolic Smq999 NA 144 mEq/L 03/01/2018 Comp Metabolic Fag471 K 3.6 mEq/L 03/01/2018 Comp Metabolic Zps401 CL 111 mEq/L 03/01/2018 Comp Metabolic Qsa638 CO2 23.0 mEq/L 03/01/2018 Comp Metabolic Gwy033 AN ION GAP 14 03/01/2018 Comp Metabolic Kjk263 GL UCOSE 103 mg/dL 03/01/2018 Comp Metabolic Nzw983 Cr eat 0.9 mg/dL 03/01/2018 Comp Metabolic Yjc387 eG FR 67 ml/min/1.73m2 03/01 Comp Metabolic Uba824 BUN 15 mg/dL 03/01/2018 Comp Metabolic Afa924 B/ C Ratio 16.9 Ratio 03/01/2018 Comp Metabolic Kqg615 CA LCIUM 9.4 mg/dL 03/01/2018 Comp Metabolic Wuw403 AL K PHOS 85 U/L 03/01/2018 Comp Metabolic Rmb461 T(SGOT) 14 U/L 03/01/2018 Comp Metabolic Gby607 AL T(SGPT) 12 U/L 03/01/2018 Comp Metabolic Mjg834 BI LI T 0.9 mg/dL 03/01/2018 Comp Metabolic Zuw293 AL BUMIN 4.2 g/dL 03/01/2018 Comp Metabolic Gtw023 TP RO 6.5 g/dL 03/01/2018 Comp Metabolic Zvz635 GL OB 2.3 g/dL 03/01/2018 Comp Metabolic Myy163 A/ G Ratio 1.8 Ratio 03/01/2018 Comp Metabolic Lpr269 Os mo 288 mOsmo 03/01/2018 Culture Urine [id number] URI NE CULTURE SEE NOTES 01/30/2018 Culture Urine [id number] Con tinued Results 01/30/2018 Urine Culture Ucult Comp lete >100,000 col/ml aerobic grow th sent to ref lab 01/26/2018 %Hba1C Pcd331 % HbA1c 17414-0 5.6 % 09/30/2017 %Hba1C Xgs882 Gluc Ave 114 mg/dL 09/30/2017 Review of [...] Date URINALYSIS NONAUTO W /O SCOPE CPT-4: 96205 2018 Vital Signs Date Vital 10/19/2018 BMI: 37.7 Code: 36461-8 Heart Rate 1: 79 bpm Height: 5'8" SpO2: 99% Weight: 244 lbs 2018 Blood Pressure 1: 132/64 Code: 8480-6 BMI: 36.7 Code: 79802-1 Heart Rate 1: 62 bpm Height: 5'8" SpO2: 96% Weight: 238 lbs 09/29/2017 Blood Pressure 1: 124/76 Code: 8480-6 BMI: 36.8 Code: 60751-7 Heart Rate 1: 83 bpm Height: 5'8" [...] Encounters Encounter Performer Loca tion Codes Date 83915 EST. PATIENT, LEVEL III Diagnosis: Cervicalgia[ICD10: M54.2] Martha Nance MD, [facility] CPT-4: 32810 10/19/2018 65931 51759 EST. P ATIENT, LEVEL IV Diagnosis: Essential (primary) hypertension[ICD10: I10] Diagnosis: Low back pain[ICD10: M54.5] Diagnosis: Dysuria[ICD10: R30.0] Diagnosis: Personal history of urinary calculi[ICD10: Z87.442] Diagnosis: Paroxysmal atrial fibrillation[ICD10: I48.0] Diagnosis: Urinary tract infection, site not specified[ICD10: N39.0] Katelynn Nance MD, [facility] CPT-4: 03900 2018 OFFICE VISIT, NEW - LEVEL 3 Diagnosis: Essential (primary) hypertension[ICD10: I10] Diagnosis: Type 2 diabetes mellitus without complications[ICD10: E11.9] Diagnosis: Low back pain[ICD10: M54.5] Diagnosis: Paroxysmal atrial fibrillation[ICD10: I48.0] [facility] CPT-4: 58636 09/29/2017 Plan of Care Planned Activity Notes C odes Status Date Care Plan: X-RAY EXAM NECK SPINE 2-3 VW LOINC : 27812-9 Pending 10/23/2018 Visit Plan: Neck Pain- pt to start with aspercreme or biofreeze to neck three times daily and start neck exercises daily. 10/19/2018 Appointment: Martha Linn WPtel: [id number] (15 min) Moderate 10/19/2018 Patient Education: Patient [...] ordered - keflex rx sent to [facility]. 2018 Appointment: Katelynn Nance WPtel: [phone] [facility] [place] (15 min) Moderate 2018 Patient Education: Patient Medication Summary Completed 2018 Patient Education: Back Pain Completed 2018 Care Plan: X-RAY EXAM L-S SPINE 2/3 VWS LOINC : 52515-3 Pending 2018 Visit Plan: Hypertension - well [...] WPtel: [id number] New Patient 09/29/2017 Patient Education: Patient Medication [...] ordered - keflex rx sent to [facility]. RECOMMEND PROBIOTIC TWICE DAILY [...]
[2019-12-20] MEDS ORDERED: LACTATED RINGERS 1,000 ML IV ONE (10:42)
--- OUTSIDE RECORDS SUMMARY | 2019-12-20 10:42 | XMS REPORT | Continuity of Care Document ---
Author Organization Unknown Address Unknown Phone Unavailable Allergies Active Description Code Type Severity Reaction Onset Reported/Identified Relationship to Patient Clinical Status Yes codeine [id number] Drug Allergy Unknown N/A 09/15/2017 Yes meperidine [id number] Drug Allerg y Unknown N/A 09/15/2017 Yes morphine [id number] Drug Allergy Unknown N/A 09/15/2017 Medications There is no data. Problems Date Dx Coded Attending Type Code Diagnosis Diagnosed By 09/16/2017 Janet PLEITEZ MD, Ot E11 .9 TYPE 2 DIABETES MELLITUS WITHOUT COMPLIC 09/16/2017 Janet PLEITEZ MD, Ot I25.10 ATHSCL HEART DISEASE OF [place] CORONARY 09/16/2017 Janet PLEITEZ MD Ot I47 .2 VENTRICULAR TACHYCARDIA 09/16/2017 Janet PLEITEZ MD Ot I48 .0 PAROXYSMAL ATRIAL FIBRILLATION 09/16/2017 Janet PLEITEZ MD Ot I95 .9 HYPOTENSION, UNSPECIFIED 09/16/2017 Janet PLEITEZ MD Ot Z79.02 RETIREMENT (CURRENT) USE OF ANTITHROMBOTI 09/16/2017 Janet PLEITEZ MD Ot Z79.84 CUTTING SUPERVISOR (CURRENT) USE OF ORAL HYPOGLYC 09/16/2017 Janet PLEITEZ MD Ot Z79.899 OTHER RETIREMENT (CURRENT) DRUG THERAPY 09/16/2017 Janet PLEITEZ MD Ot Z95 .5 PRESENCE OF CORONARY ANGIOPLASTY IMPLANT 09/16/2017 Janet PLEITEZ MD Ot Z95.810 PRESENCE OF AUTOMATIC (IMPLANTABLE) CARD 09/16/2017 Janet PLEITEZ MD Ot E11 .9 TYPE 2 DIABETES MELLITUS WITHOUT COMPLIC 09/16/2017 Janet PLEITEZ MD Ot I25.10 ATHSCL HEART DISEASE OF [place] CORONARY 09/16/2017 Janet PLEITEZ MD Ot I47 .2 VENTRICULAR TACHYCARDIA 09/16/2017 Janet PLEITEZ MD Ot I48 .0 PAROXYSMAL ATRIAL FIBRILLATION 09/16/2017 Janet PLEITEZ MD Ot I95 .9 HYPOTENSION, UNSPECIFIED 09/16/2017 Janet PLEITEZ MD, Ot K21 .9 GASTRO-ESOPHAGEAL REFLUX DISEASE WITHOUT 09/16/2017 Janet PLEITEZ MD Ot Z79.02 CUTTING SUPERVISOR (CURRENT) USE OF ANTITHROMBOTI 09/16/2017 Janet PLEITEZ MD Ot Z79.84 CUTTING SUPERVISOR (CURRENT) USE OF ORAL HYPOGLYC 09/16/2017 Janet PLEITEZ MD, Ot Z79.899 OTHER CUTTING SUPERVISOR (CURRENT) DRUG THERAPY 09/16/2017 Janet PLEITEZ MD Ot Z95 .5 PRESENCE OF CORONARY ANGIOPLASTY IMPLANT 09/16/2017 Janet PLEITEZ MD Ot Z95.810 PRESENCE OF AUTOMATIC (IMPLANTABLE) CARD 09/17/2017 MIRACLE FRYE MD Ot E11. 9 TYPE 2 DIABETES MELLITUS WITHOUT COMPLIC 09/17/2017 MIRACLE FRYE MD, Ot E78. 5 HYPERLIPIDEMIA, UNSPECIFIED 09/17/2017 MIRACLE FRYE MD Ot F41. 0 PANIC DISORDER [EPISODIC PAROXYSMAL ANXI 09/17/2017 MIRACLE FRYE MD Ot I10 ESSENTIAL (PRIMARY) HYPERTENSION 09/17/2017 MIRACLE FRYE MD Ot I25. 10 ATHSCL HEART DISEASE OF [place] CORONARY 09/17/2017 MIRCALE FRYE MD Ot I44. 7 LEFT BUNDLE-BRANCH BLOCK, UNSPECIFIED 09/17/2017 MIRACLE FRYE MD, Ot I48. 0 PAROXYSMAL ATRIAL FIBRILLATION 09/17/2017 MIRACLE FRYE MD, Ot K21. 9 GASTRO-ESOPHAGEAL REFLUX DISEASE WITHOUT 09/17/2017 MIRACLE FRYE MD, Ot M54. 9 DORSALGIA, UNSPECIFIED 09/17/2017 MIRACLE FRYE MD Ot R00. 0 TACHYCARDIA, UNSPECIFIED 09/17/2017 MIRACLE FRYE MD Ot Z79. 01 CUTTING SUPERVISOR (CURRENT) USE OF ANTICOAGULANT 09/17/2017 MIRACLE FRYE MD Ot Z95. 5 PRESENCE OF CORONARY ANGIOPLASTY IMPLANT 09/17/2017 MIRACLE FRYE MD Ot Z95.810 PRESENCE OF AUTOMATIC (IMPLANTABLE) CARD 09/19/2017 MIRACLE FRYE MD Ot E11. 9 TYPE 2 DIABETES MELLITUS WITHOUT COMPLIC 09/19/2017 MIRACLE FRYE MD Ot E78. 5 HYPERLIPIDEMIA, UNSPECIFIED 09/19/2017 MIRACLE FRYE MD Ot F41. 0 PANIC DISORDER [EPISODIC PAROXYSMAL ANXI 09/19/2017 MIRACLE FRYE MD Ot I10 ESSENTIAL (PRIMARY) HYPERTENSION 09/19/2017 MIRACLE FRYE MD Ot I25. 10 ATHSCL HEART DISEASE OF [place] CORONARY 09/19/2017 MIRACLE FRYE MD Ot I44. 7 LEFT BUNDLE-BRANCH BLOCK, UNSPECIFIED 09/19/2017 MIRACLE FRYE MD Ot I48. 0 PAROXYSMAL ATRIAL FIBRILLATION 09/19/2017 MIRACLE FRYE MD Ot K21. 9 GASTRO-ESOPHAGEAL REFLUX DISEASE WITHOUT 09/19/2017 MIRACLE FRYE MD Ot M54. 9 DORSALGIA, UNSPECIFIED 09/19/2017 MIRACLE FRYE MD Ot R00. 0 TACHYCARDIA, UNSPECIFIED 09/19/2017 MIRACLE FRYE MD Ot Z79. 01 CUTTING SUPERVISOR (CURRENT) USE OF ANTICOAGULANT 09/19/2017 MIRACLE FRYE MD Ot Z95. 5 PRESENCE OF CORONARY ANGIOPLASTY IMPLANT 09/19/2017 MIRACLE FRYE MD Ot Z95.810 PRESENCE OF AUTOMATIC (IMPLANTABLE) CARD 09/20/2017 MIRACLE FRYE MD Ot E11. 9 TYPE 2 DIABETES MELLITUS WITHOUT COMPLIC 09/20/2017 MIRACLE FRYE MD Ot E78. 5 HYPERLIPIDEMIA, UNSPECIFIED 09/20/2017 MIRACLE FRYE MD Ot F41. 0 PANIC DISORDER [EPISODIC PAROXYSMAL ANXI 09/20/2017 MIRACLE FRYE MD Ot I10 ESSENTIAL (PRIMARY) HYPERTENSION 09/20/2017 MIRACLE FRYE MD Ot I25. 10 ATHSCL HEART DISEASE OF [place] CORONARY 09/20/2017 MIRACLE FRYE MD Ot I44. 7 LEFT BUNDLE-BRANCH BLOCK, UNSPECIFIED 09/20/2017 MIRACLE FRYE MD Ot I48. 0 PAROXYSMAL ATRIAL FIBRILLATION 09/20/2017 MIRACLE FRYE MD Ot K21. 9 GASTRO-ESOPHAGEAL REFLUX DISEASE WITHOUT 09/20/2017 MIRACLE FRYE MD Ot M54. 9 DORSALGIA, UNSPECIFIED 09/20/2017 MIRACLE FRYE MD Ot R00. 0 TACHYCARDIA, UNSPECIFIED 09/20/2017 MIRACLE FRYE MD Ot Z79. 01 RETIREMENT (CURRENT) USE OF ANTICOAGULANT 09/20/2017 MIRACLE FRYE MD Ot Z95. 5 PRESENCE OF CORONARY ANGIOPLASTY IMPLANT 09/20/2017 MIRACLE FRYE MD Ot Z95.810 PRESENCE OF AUTOMATIC (IMPLANTABLE) CARD 09/20/2017 MIRACLE FRYE MD Ot E11. 9 TYPE 2 DIABETES MELLITUS WITHOUT COMPLIC 09/20/2017 MIRACLE FRYE MD Ot E78. 5 HYPERLIPIDEMIA, UNSPECIFIED 09/20/2017 MIRACLE FRYE MD Ot F41. 0 PANIC DISORDER [EPISODIC PAROXYSMAL ANXI 09/20/2017 MIRACLE FRYE MD Ot I10 ESSENTIAL (PRIMARY) HYPERTENSION 09/20/2017 MIRACLE FRYE MD Ot I25. 10 ATHSCL HEART DISEASE OF [place] CORONARY 09/20/2017 MIRACLE FRYE MD Ot I44. 7 LEFT BUNDLE-BRANCH BLOCK, UNSPECIFIED 09/20/2017 MIRACLE FRYE MD Ot I48. 0 PAROXYSMAL ATRIAL FIBRILLATION 09/20/2017 MIRACLE FRYE MD Ot K21. 9 GASTRO-ESOPHAGEAL REFLUX DISEASE WITHOUT 09/20/2017 MIRACLE FRYE MD Ot M54. 9 DORSALGIA, UNSPECIFIED 09/20/2017 MIRACLE FRYE MD Ot R00. 0 TACHYCARDIA, UNSPECIFIED 09/20/2017 MIRACLE FRYE MD Ot Z79. 01 RETIREMENT (CURRENT) USE OF ANTICOAGULANT 09/20/2017 MIRACLE FRYE MD Ot Z95. 5 PRESENCE OF CORONARY ANGIOPLASTY IMPLANT 09/20/2017 MIRACLE FRYE MD Ot Z95.810 PRESENCE OF AUTOMATIC (IMPLANTABLE) CARD 09/28/2017 Janet PLEITEZ MD Ot Z12.31 ENCNTR SCREEN MAMMOGRAM FOR MALIGNANT NE 09/29/2017 Janet PLEITEZ MD Ot Z12.31 ENCNTR SCREEN MAMMOGRAM FOR MALIGNANT NE 10/06/2017 MAIK WHITLEY, Janet MANTILLA Ot Z12.31 ENCNTR SCREEN MAMMOGRAM FOR MALIGNANT NE 10/11/2017 Janet PLEITEZ MD Ot Z12.31 ENCNTR SCREEN MAMMOGRAM FOR MALIGNANT NE 10/11/2017 Janet PLEITEZ MD Ot Z12.31 ENCNTR SCREEN MAMMOGRAM FOR MALIGNANT NE 10/12/2017 Janet PLEITEZ MD Ot E04 .2 NONTOXIC MULTINODULAR GOITER 10/12/2017 Janet PLEITEZ MD Ot Z12.31 ENCNTR SCREEN MAMMOGRAM FOR MALIGNANT NE 10/14/2017 Janet PLEITEZ MD Ot Z12.31 ENCNTR SCREEN MAMMOGRAM FOR MALIGNANT NE 10/14/2017 Janet PLEITEZ MD Ot Z12.31 ENCNTR SCREEN MAMMOGRAM FOR MALIGNANT NE 10/14/2017 Janet PLEITEZ MD Ot E04 .2 NONTOXIC MULTINODULAR GOITER 10/26/2017 Janet PLEITEZ MD Ot Z12.31 ENCNTR SCREEN MAMMOGRAM FOR MALIGNANT NE 10/26/2017 Janet PLEITEZ MD Ot E04 .2 NONTOXIC MULTINODULAR GOITER 11/24/2017 MAXIMINO WHITLEY, GLEN M Ot E04.1 NONTOXIC SINGLE THYROID NODULE 11/28/2017 MAXIMINO WHITLEY, GLEN M Ot E04.1 NONTOXIC SINGLE THYROID NODULE 12/07/2017 Janet PLEITEZ MD Ot Z12.31 ENCNTR SCREEN MAMMOGRAM FOR MALIGNANT NE 12/07/2017 Janet PLEITEZ MD Ot E04 .2 NONTOXIC MULTINODULAR GOITER 12/07/2017 MAXIMINO WHITLEY, GLEN M Ot E04.1 NONTOXIC SINGLE THYROID NODULE 12/08/2017 Janet PLEITEZ MD Ot E66 .9 OBESITY, UNSPECIFIED 12/08/2017 Janet PLEITEZ MD Ot E78 .5 HYPERLIPIDEMIA, UNSPECIFIED 12/08/2017 Janet PLEITEZ MD Ot I10 ESSENTIAL (PRIMARY) HYPERTENSION 12/08/2017 Janet PLEITEZ MD Ot I25.10 ATHSCL HEART DISEASE OF [place] CORONARY 12/08/2017 Janet PLEITEZ MD Ot I48.91 UNSPECIFIED ATRIAL FIBRILLATION 12/08/2017 Janet PLEITEZ MD Ot Z95.810 PRESENCE OF AUTOMATIC (IMPLANTABLE) CARD 01/31/2018 GIO BRADY MD Ot M46.86 OTHER SPECIFIED INFLAMMATORY SPONDYLOPAT 01/31/2018 GIO BRADY MD Ot M47.816 SPONDYLOSIS W/O MYELOPATHY OR RADICULOPA 01/31/2018 GIO BRADY MD Ot Z87.442 PERSONAL HISTORY OF URINARY CALCULI 02/10/2018 GIO BRADY MD Ot M46.86 OTHER SPECIFIED INFLAMMATORY SPONDYLOPAT 02/10/2018 GIO BRADY MD Ot M47.816 SPONDYLOSIS W/O MYELOPATHY OR RADICULOPA 02/10/2018 GIO BRADY MD Ot Z87.442 PERSONAL HISTORY OF URINARY CALCULI 04/26/2018 Janet PLEITEZ MD Ot Z12.31 ENCNTR SCREEN MAMMOGRAM FOR MALIGNANT NE 04/26/2018 Janet PLEITEZ MD Ot E04 .2 NONTOXIC MULTINODULAR GOITER 04/26/2018 GLEN STANTON MD Ot E04.1 NONTOXIC SINGLE THYROID NODULE 04/26/2018 Janet PLEITEZ MD Ot E66 .9 OBESITY, UNSPECIFIED 04/26/2018 Janet PLEITEZ MD Ot E78 .5 HYPERLIPIDEMIA, UNSPECIFIED 04/26/2018 Janet PLEITEZ MD Ot I10 ESSENTIAL (PRIMARY) HYPERTENSION 04/26/2018 Janet PLEITEZ MD Ot I25.10 ATHSCL HEART DISEASE OF [place] CORONARY 04/26/2018 Janet PLEITEZ MD Ot I48.91 UNSPECIFIED ATRIAL FIBRILLATION 04/26/2018 Janet PLEITEZ MD Ot Z95.810 PRESENCE OF AUTOMATIC (IMPLANTABLE) CARD 04/26/2018 GIO BRADY MD Ot M46.86 OTHER SPECIFIED INFLAMMATORY SPONDYLOPAT 04/26/2018 GIO BRADY MD Ot M47.816 SPONDYLOSIS W/O MYELOPATHY OR RADICULOPA 04/26/2018 GOYO WHITLEY, GIO Duval Ot Z87.442 PERSONAL HISTORY OF URINARY CALCULI 09/18/2018 Janet PLEITEZ MD Ot I42 .9 CARDIOMYOPATHY, UNSPECIFIED 09/18/2018 Janet PLEITEZ MD Ot I48 .0 PAROXYSMAL ATRIAL FIBRILLATION 09/18/2018 Janet PLEITEZ MD Ot Z95.810 PRESENCE OF AUTOMATIC (IMPLANTABLE) CARD 09/21/2018 Janet PLEITEZ MD Ot E04 .1 NONTOXIC SINGLE THYROID NODULE 09/21/2018 Janet PLEITEZ MD Ot E78 .5 HYPERLIPIDEMIA, UNSPECIFIED 09/21/2018 Janet PLEITEZ MD Ot F41 .0 PANIC DISORDER [EPISODIC PAROXYSMAL ANXI 09/21/2018 Janet PLEITEZ MD Ot I10 ESSENTIAL (PRIMARY) HYPERTENSION 09/21/2018 Janet PLEITEZ MD Ot I25.10 ATHSCL HEART DISEASE OF [place] CORONARY 09/21/2018 Janet PLEITEZ MD Ot I42 .9 CARDIOMYOPATHY, UNSPECIFIED 09/21/2018 Janet PLEITEZ MD Ot I48 .0 PAROXYSMAL ATRIAL FIBRILLATION 09/21/2018 Janet PLEITEZ MD Ot I82.A12 ACUTE EMBOLISM AND THROMBOSIS OF LEFT AX 09/21/2018 Janet PLEITEZ MD Ot I82.B12 ACUTE EMBOLISM AND THROMBOSIS OF LEFT ACUNA 09/21/2018 Janet PLEITEZ MD Ot Z11 .2 ENCOUNTER FOR SCREENING FOR OTHER BACTER 09/21/2018 Janet PLEITEZ MD Ot Z79.01 CUTTING SUPERVISOR (CURRENT) USE OF ANTICOAGULANT 09/21/2018 Janet PLEITEZ MD Ot Z79.899 OTHER RETIREMENT (CURRENT) DRUG THERAPY 09/21/2018 Janet PLEITEZ MD Ot Z88 .5 ALLERGY STATUS TO NARCOTIC AGENT STATUS 09/21/2018 Janet PLEITEZ MD Ot Z95 .5 PRESENCE OF CORONARY ANGIOPLASTY IMPLANT 09/21/2018 Janet PLEITEZ MD Ot Z95.810 PRESENCE OF AUTOMATIC (IMPLANTABLE) CARD 09/25/2018 Janet PLEITEZ MD Ot E04 .1 NONTOXIC SINGLE THYROID NODULE 09/25/2018 Janet PLEITEZ MD Ot E78 .5 HYPERLIPIDEMIA, UNSPECIFIED 09/25/2018 Janet PLEITEZ MD Ot F41 .0 PANIC DISORDER [EPISODIC PAROXYSMAL ANXI 09/25/2018 Janet PLEITEZ MD Ot I10 ESSENTIAL (PRIMARY) HYPERTENSION 09/25/2018 Janet PLEITEZ MD Ot I25.10 ATHSCL HEART DISEASE OF [place] CORONARY 09/25/2018 Janet PLEITEZ MD Ot I42 .9 CARDIOMYOPATHY, UNSPECIFIED 09/25/2018 Janet PLEIETZ MD Ot I48 .0 PAROXYSMAL ATRIAL FIBRILLATION 09/25/2018 Janet PLEITEZ MD Ot I82.A12 ACUTE EMBOLISM AND THROMBOSIS OF LEFT AX 09/25/2018 Janet PLEITEZ MD Ot I82.B12 ACUTE EMBOLISM AND THROMBOSIS OF LEFT ACUNA 09/25/2018 Janet PLEITEZ MD Ot Z11 .2 ENCOUNTER FOR SCREENING FOR OTHER BACTER 09/25/2018 Janet PLEITEZ MD Ot Z79.01 RETIREMENT (CURRENT) USE OF ANTICOAGULANT 09/25/2018 Janet PLEITEZ MD Ot Z79.899 OTHER CUTTING SUPERVISOR (CURRENT) DRUG THERAPY 09/25/2018 Janet PLEITEZ MD Ot Z88 .5 ALLERGY STATUS TO NARCOTIC AGENT STATUS 09/25/2018 Janet PLEITEZ MD Ot Z95 .5 PRESENCE OF CORONARY ANGIOPLASTY IMPLANT 09/25/2018 Janet PLEITEZ MD Ot Z95.810 PRESENCE OF AUTOMATIC (IMPLANTABLE) CARD 10/29/2018 ASYA VALDEZ APRN Ot M43.12 SPONDYLOLISTHESIS, CERVICAL REGION 10/29/2018 ASYA VALDEZ APRN Ot 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 W/O MYELOPATHY OR RADICULOPA 10/29/2018 ASYA VALDEZ APRN Ot Z98.890 OTHER SPECIFIED POSTPROCEDURAL STATES 05/07/2019 ASYA VALDEZ APRN Ot Z12.31 ENCNTR SCREEN MAMMOGRAM FOR MALIGNANT NE 05/07/2019 ASYA VALDEZ APRN Ot Z12.31 ENCNTR SCREEN MAMMOGRAM FOR MALIGNANT NE 05/07/2019 ASYA VALDEZ APRN Ot Z12.31 ENCNTR SCREEN MAMMOGRAM FOR MALIGNANT NE 05/18/2019 Janet PLEITEZ MD Ot Z12.31 ENCNTR SCREEN MAMMOGRAM FOR MALIGNANT NE 05/18/2019 Janet PLEITEZ MD Ot E04 .2 NONTOXIC MULTINODULAR GOITER 05/18/2019 GLEN STANTON MD Ot E04.1 NONTOXIC SINGLE THYROID NODULE 05/18/2019 Janet PLEITEZ MD Ot E66 .9 OBESITY, UNSPECIFIED 05/18/2019 Janet PLEITEZ MD Ot E78 .5 HYPERLIPIDEMIA, UNSPECIFIED 05/18/2019 Janet PLEITEZ MD Ot I10 ESSENTIAL (PRIMARY) HYPERTENSION 05/18/2019 Janet PLEITEZ MD Ot I25.10 ATHSCL HEART DISEASE OF [place] CORONARY 05/18/2019 Janet PLEITEZ MD Ot I48.91 UNSPECIFIED ATRIAL FIBRILLATION 05/18/2019 Janet PLEITEZ MD Ot Z95.810 PRESENCE OF AUTOMATIC (IMPLANTABLE) CARD 05/18/2019 GIO BRADY MD Ot M46.86 OTHER SPECIFIED INFLAMMATORY SPONDYLOPAT 05/18/2019 GIO BRADY MD Ot M47.816 SPONDYLOSIS W/O MYELOPATHY OR RADICULOPA 05/18/2019 GIO BRADY MD Ot Z87.442 PERSONAL HISTORY OF URINARY CALCULI 05/18/2019 Janet PLEITEZ MD Ot I42 .9 CARDIOMYOPATHY, UNSPECIFIED 05/18/2019 Janet PLEITEZ MD Ot I48 .0 PAROXYSMAL ATRIAL FIBRILLATION 05/18/2019 Janet PLEITEZ MD Ot Z95.810 PRESENCE OF AUTOMATIC (IMPLANTABLE) CARD 05/18/2019 ASYA VALDEZ APRN Ot M43.12 SPONDYLOLISTHESIS, CERVICAL REGION 05/18/2019 ASYA VALDEZ APRN Ot 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 W/O MYELOPATHY OR RADICULOPA 05/18/2019 ASYA VALDEZ APRN Ot Z98.890 OTHER SPECIFIED POSTPROCEDURAL STATES 05/18/2019 ASYA VALDEZ APRN Ot Z12.31 ENCNTR SCREEN MAMMOGRAM FOR MALIGNANT NE 05/18/2019 Janet PLEITEZ MD Ot Z12.31 ENCNTR SCREEN MAMMOGRAM FOR MALIGNANT NE 05/18/2019 Janet PLEITEZ MD Ot E04 .2 NONTOXIC MULTINODULAR GOITER 05/18/2019 GLEN STANTON MD Ot E04.1 NONTOXIC SINGLE THYROID NODULE 05/18/2019 Janet PLEITEZ MD Ot E66 .9 OBESITY, UNSPECIFIED 05/18/2019 Janet PLEITEZ MD Ot E78 .5 HYPERLIPIDEMIA, UNSPECIFIED 05/18/2019 Janet PLEITEZ MD Ot I10 ESSENTIAL (PRIMARY) HYPERTENSION 05/18/2019 Janet PLEITEZ MD Ot I25.10 ATHSCL HEART DISEASE OF [place] CORONARY 05/18/2019 Janet PLEITEZ MD Ot I48.91 UNSPECIFIED ATRIAL FIBRILLATION 05/18/2019 Janet PLEITEZ MD Ot Z95.810 PRESENCE OF AUTOMATIC (IMPLANTABLE) CARD 05/18/2019 GIO BRADY MD Ot M46.86 OTHER SPECIFIED INFLAMMATORY SPONDYLOPAT 05/18/2019 GIO BRADY MD Ot M47.816 SPONDYLOSIS W/O MYELOPATHY OR RADICULOPA 05/18/2019 GIO BRADY MD Ot Z87.442 PERSONAL HISTORY OF URINARY CALCULI 05/18/2019 Janet PLEITEZ MD Ot I42 .9 CARDIOMYOPATHY, UNSPECIFIED 05/18/2019 Janet PLEITEZ MD Ot I48 .0 PAROXYSMAL ATRIAL FIBRILLATION 05/18/2019 Janet PLEITEZ MD Ot Z95.810 PRESENCE OF AUTOMATIC (IMPLANTABLE) CARD 05/18/2019 ASYA VALDEZ APRN Ot M43.12 SPONDYLOLISTHESIS, CERVICAL REGION 05/18/2019 ASYA VALDEZ APRN Ot 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 W/O MYELOPATHY OR RADICULOPA 05/18/2019 ASYA VALDEZ APRN Ot Z98.890 OTHER SPECIFIED POSTPROCEDURAL STATES 05/18/2019 ASYA VALDEZ APRN Ot Z12.31 ENCNTR SCREEN MAMMOGRAM FOR MALIGNANT NE 05/21/2019 Janet PLEITEZ MD Ot Z12.31 ENCNTR SCREEN MAMMOGRAM FOR MALIGNANT NE 05/21/2019 Janet PLEITEZ MD Ot E04 .2 NONTOXIC MULTINODULAR GOITER 05/21/2019 GLEN STANTON MD Ot E04.1 NONTOXIC SINGLE THYROID NODULE 05/21/2019 Janet PLEITEZ MD Ot E66 .9 OBESITY, UNSPECIFIED 05/21/2019 Janet PLEITEZ MD Ot E78 .5 HYPERLIPIDEMIA, UNSPECIFIED 05/21/2019 Janet PLEITEZ MD Ot I10 ESSENTIAL (PRIMARY) HYPERTENSION 05/21/2019 Janet PLEITEZ MD Ot I25.10 ATHSCL HEART DISEASE OF [place] CORONARY 05/21/2019 Janet PLEITEZ MD Ot I48.91 UNSPECIFIED ATRIAL FIBRILLATION 05/21/2019 Janet PLEITEZ MD Ot Z95.810 PRESENCE OF AUTOMATIC (IMPLANTABLE) CARD 05/21/2019 GIO BRADY MD Ot M46.86 OTHER SPECIFIED INFLAMMATORY SPONDYLOPAT 05/21/2019 GIO BRADY MD Ot M47.816 SPONDYLOSIS W/O MYELOPATHY OR RADICULOPA 05/21/2019 GIO BRADY MD Ot Z87.442 PERSONAL HISTORY OF URINARY CALCULI 05/21/2019 Janet PLEITEZ MD Ot I42 .9 CARDIOMYOPATHY, UNSPECIFIED 05/21/2019 Janet PLEITEZ MD Ot I48 .0 PAROXYSMAL ATRIAL FIBRILLATION 05/21/2019 Janet PLEITEZ MD Ot Z95.810 PRESENCE OF AUTOMATIC (IMPLANTABLE) CARD 05/21/2019 ASYA VALDEZ APRN Ot M43.12 SPONDYLOLISTHESIS, CERVICAL REGION 05/21/2019 ASYA VALDEZ APRN Ot 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 W/O MYELOPATHY OR RADICULOPA 05/21/2019 ASYA VALDEZ APRN Ot Z98.890 OTHER SPECIFIED POSTPROCEDURAL STATES 05/21/2019 ASYA VALDEZ APRN Ot Z12.31 ENCNTR SCREEN MAMMOGRAM FOR MALIGNANT NE 05/22/2019 ASYA VALDEZ APRN Ot Z12.31 ENCNTR SCREEN MAMMOGRAM FOR MALIGNANT NE 06/17/2019 Janet PLEITEZ MD Ot I48.91 UNSPECIFIED ATRIAL FIBRILLATION 06/17/2019 Janet PLEITEZ MD Ot I51 .9 HEART DISEASE, UNSPECIFIED 06/17/2019 Janet PLEITEZ MD Ot Z51.81 ENCOUNTER FOR THERAPEUTIC DRUG LEVEL MON 07/06/2019 Janet PLEITEZ MD Ot I48.91 UNSPECIFIED ATRIAL FIBRILLATION 07/06/2019 Janet PLEITEZ MD Ot I51 .9 HEART DISEASE, UNSPECIFIED 07/06/2019 Janet PLEITEZ MD Ot Z51.81 ENCOUNTER FOR THERAPEUTIC DRUG LEVEL MON 07/13/2019 W Z12.31 Scr eening mammogram, encounter for Gio Brady 09/27/2019 Janet PLEITEZ MD Ot Z12.31 ENCNTR SCREEN MAMMOGRAM FOR MALIGNANT NE 09/27/2019 Janet PLEITEZ MD Ot E04 .2 NONTOXIC MULTINODULAR GOITER 09/27/2019 GLEN STANTON MD Ot E04.1 NONTOXIC SINGLE THYROID NODULE 09/27/2019 Janet PLEITEZ MD Ot E66 .9 OBESITY, UNSPECIFIED 09/27/2019 Janet PLEITEZ MD Ot E78 .5 HYPERLIPIDEMIA, UNSPECIFIED 09/27/2019 Janet PLEITEZ MD Ot I10 ESSENTIAL (PRIMARY) HYPERTENSION 09/27/2019 Janet PLEITEZ MD Ot I25.10 ATHSCL HEART DISEASE OF [place] CORONARY 09/27/2019 Janet PLEITEZ MD Ot I48.91 UNSPECIFIED ATRIAL FIBRILLATION 09/27/2019 Janet PLEITEZ MD Ot Z95.810 PRESENCE OF AUTOMATIC (IMPLANTABLE) CARD 09/27/2019 IGO BRADY MD Ot M46.86 OTHER SPECIFIED INFLAMMATORY SPONDYLOPAT 09/27/2019 GIO BRADY MD Ot M47.816 SPONDYLOSIS W/O MYELOPATHY OR RADICULOPA 09/27/2019 GIO BRADY MD Ot Z87.442 PERSONAL HISTORY OF URINARY CALCULI 09/27/2019 MAIK WHITLEY, Janet MANTILLA Ot I42 .9 CARDIOMYOPATHY, UNSPECIFIED 09/27/2019 MAIK WHITLEY, Janet MANTILLA Ot I48 .0 PAROXYSMAL ATRIAL FIBRILLATION 09/27/2019 MAIK WHITLEY, Janet MANTILLA Ot Z95.810 PRESENCE OF AUTOMATIC (IMPLANTABLE) CARD 09/27/2019 ASYA VALDEZ APRN Ot M43.12 SPONDYLOLISTHESIS, CERVICAL REGION 09/27/2019 ASYA VALDEZ APRN Ot 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 W/O MYELOPATHY OR RADICULOPA 09/27/2019 ASYA VALDEZ APRN Ot Z98.890 OTHER SPECIFIED POSTPROCEDURAL STATES 09/27/2019 ASYA VALDEZ APRN Ot Z12.31 ENCNTR SCREEN MAMMOGRAM FOR MALIGNANT NE 09/27/2019 Janet PLEITEZ MD Ot I48.91 UNSPECIFIED ATRIAL FIBRILLATION 09/27/2019 Janet PLEITEZ MD Ot I51 .9 HEART DISEASE, UNSPECIFIED 09/27/2019 Janet PLEITEZ MD Ot Z51.81 ENCOUNTER FOR THERAPEUTIC DRUG LEVEL MON 09/27/2019 W E11.9 Type 2 diabetes mellitus without complications Gio Brady 09/27/2019 W 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 Gio Brady 09/27/2019 W I10 Essent ial (primary) hypertension Gio Brady 09/27/2019 W I48.0 Paro xysmal atrial fibrillation Gio Brady 09/27/2019 W M53.3 Sacr oiliac joint pain Gio Brady 09/28/2019 GIO BRADY MD Ot E11.9 TYPE 2 DIABETES MELLITUS WITHOUT COMPLIC 09/28/2019 GIO BRADY MD Ot G60.3 IDIOPATHIC PROGRESSIVE NEUROPATHY 09/28/2019 GIO BRADY MD Ot I1 0 ESSENTIAL (PRIMARY) HYPERTENSION 09/28/2019 GIO BRADY MD Ot I48.0 PAROXYSMAL ATRIAL FIBRILLATION 10/09/2019 Janet PLEITEZ MD Ot Z51.81 ENCOUNTER FOR THERAPEUTIC DRUG LEVEL MON 11/02/2019 W D51.0 Ana min B12 deficiency anemia due to intrinsic factor deficiency Gio Brady 11/02/2019 W E55.9 Ana min D deficiency Goyo Barry 11/02/2019 W 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 Goyo, Barry 11/02/2019 W I10 Essent ial (primary) hypertension Goyo, Barry 11/02/2019 W I48.0 Paro xysmal atrial fibrillation Goyo Barry 11/02/2019 GIO BRADY MD Ot E55.9 VITAMIN D DEFICIENCY, UNSPECIFIED 11/02/2019 GOYO WHITLEY, GIO Duval Ot G60.3 IDIOPATHIC PROGRESSIVE NEUROPATHY 11/02/2019 GOYO WHITLEY, GIO Duval Ot I1 0 ESSENTIAL (PRIMARY) HYPERTENSION 11/02/2019 GOYO WHITLEY, GIO Duval Ot I48.0 PAROXYSMAL ATRIAL FIBRILLATION 11/26/2019 W E11.9 Type 2 diabetes mellitus without complications Goyo, Barry 11/26/2019 W 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 Goyo, Barry 11/26/2019 W I10 Essent ial (primary) hypertension Goyo Barry 11/26/2019 W I48.0 Paro xysmal atrial fibrillation Goyo, Barry 11/26/2019 W M53.3 Sacr oiliac joint pain Goyo, Barry 11/26/2019 W M54.89 Oth er dorsalgia Goyo Gio Procedures Code Description Performed By Per edu On [id number] ME ASURE OF CARDIAC SAMPL PRESSURE, L H 09/15/2017 [id number] FL UOROSCOPY OF MULT COR ART USING L OSM 09/15/2017 [id number] FL UOROSCOPY OF LEFT HEART USING LOW OSMO 09/15/2017 [id number] FL UOROSCOPY OF THORACIC AORTA USING LOW 09/15/2017 Results Test Result Range Complete blood count (CBC) with automate d white blood cell (WBC) differential - 09/15/17 15:15 Blood leukocytes automated count (number/volume) 5.1 10*3/uL 4.3-11.0 Blood erythrocytes automated count (number/volume) 4.86 10*6/uL 4.35-5.85 Venous blood hemoglobin measurement (mass/volume) 13.8 g/dL 11.5-16.0 Blood hematocrit (volume fraction) 43 % 35-52 Automated erythrocyte mean corpuscular volume 88 [ foz_us] 80-99 Automated erythrocyte mean corpuscular h emoglobin (mass per erythrocyte) 28 pg 25-34 Automated erythrocyte mean corpuscular h emoglobin concentration measurement (mass/volume) 32 g/dL 32-36 Automated erythrocyte distribution width ratio 14. 0 % 10.0- 14.5 Automated blood platelet count (count/volume) 283 10*3/uL 130-400 Automated blood platelet mean volume measurement 10.8 [foz_us] 7.4-10.4 Automated blood neutrophils/100 leukocytes 35 % 42-75 Automated blood lymphocytes/100 leukocytes 46 % 12-44 Blood monocytes/100 leukocytes 13 % 0-12 Automated blood eosinophils/100 leukocytes 6 % 0-10 Automated blood basophils/100 leukocytes 1 % 0-10 Blood neutrophils automated count (number/volume) 1.8 10*3 1.8-7.8 Blood lymphocytes automated count (number/volume) 2.4 10*3 1.0-4.0 Blood monocytes automated count (number/volume) 0. 7 10*3 0.0-1.0 Automated eosinophil count 0.3 10*3/uL 0 .0-0.3 Automated blood basophil count (count/volume) 0.0 10*3/uL 0.0-0.1 Comprehensive metabolic panel - 09/15/17 15:15 Serum or plasma sodium measurement (moles/volume) 144 mmol/L 135-145 Serum or plasma potassium measurement (moles/volume) 3.6 mmol/L 3.6-5.0 Serum or plasma chloride measurement (moles/volume) 114 mmol/L 98-107 Carbon dioxide 22 mmol/L 21-32 Serum or plasma anion gap determination (moles/volume) 8 mmol/L 5-14 Serum or plasma urea nitrogen measurement (mass/volume ) 19 mg/dL 7-18 Serum or plasma creatinine measurement (mass/volume) 0.94 mg/dL 0.60-1.30 Serum or plasma urea nitrogen/creatinine mass ratio 20 NRG Serum or plasma creatinine measurement w ith calculation of estimated glomerular filtration rate > NRG Serum or plasma glucose measurement (mass/volume) 100 mg/dL 70-105 Serum or plasma calcium measurement (mass/volume) 10.2 mg/dL 8.5-10.1 Serum or plasma total bilirubin measurement (mass/volu me) 0.9 mg/dL 0.1-1.0 Serum or plasma alkaline phosphatase mario surement (enzymatic activity/volume) 117 U/L 40-136 Serum or plasma aspartate aminotransfera se measurement (enzymatic activity/volume) 56 U/L 5-34 Serum or plasma alanine aminotransferase measurement (enzymatic activity/volume) 42 U/L 0-55 Serum or plasma protein measurement (mass/volume) 7.7 g/dL 6.4-8.2 Serum or plasma albumin measurement (mass/volume) 4.4 g/dL 3.2-4.5 Magnesium - 09/15/17 15:15 Magnesium 2.2 mg/dL 1.8-2.4 Serum or plasma troponin i.cardiac measu rement (mass/volume) - 09/15/17 15:15 Serum or plasma troponin i.cardiac measurement (mass/v olume) < ng/mL <0.30 Myoglobin, serum - 09/15/17 15:15 Myoglobin, serum 33.5 ng/mL 10.0-92.0 PT panel in platelet poor plasma by coag ulation assay - 09/15/17 15:15 Prothrombin time (PT) in platelet poor plasma by coagu lation assay 12.7 s 12.2-14.7 INR in platelet poor plasma or blood by coagulation as say 0.9 0.8-1.4 Activated partial thromboplastin time (a PTT) in platelet poor plasma bycoagulation assay - 09/15/17 15:15 Activated partial thromboplastin time (a PTT) in platelet poor plasma bycoagulation assay 35 s 24-35 Whole blood basic metabolic panel - 07/31 23:18 Serum or plasma sodium measurement (moles/volume) 143 mmol/L 135-145 Serum or plasma potassium measurement (moles/volume) 3.0 mmol/L 3.6-5.0 Serum or plasma chloride measurement (moles/volume) 114 mmol/L 98-107 Carbon dioxide 20 mmol/L 21-32 Serum or plasma anion gap determination (moles/volume) 9 mmol/L 5-14 Serum or plasma urea nitrogen measurement (mass/volume ) 18 mg/dL 7-18 Serum or plasma creatinine measurement (mass/volume) 0.83 mg/dL 0.60-1.30 Serum or plasma urea nitrogen/creatinine mass ratio 22 NRG Serum or plasma creatinine measurement w ith calculation of estimated glomerular filtration rate > NRG Serum or plasma glucose measurement (mass/volume) 104 mg/dL 70-105 Serum or plasma calcium measurement (mass/volume) 8.7 mg/dL 8.5-10.1 Fibrin D-dimer FEU measurement in platel et poor plasma (mass/volume) - 09/15/17 23:18 Fibrin D-dimer FEU measurement in platelet poor plasma (mass/volume) 0.83 ug/mL 0.00-0.49 Serum or plasma troponin i.cardiac measu rement (mass/volume) - 09/15/17 23:18 Serum or plasma troponin i.cardiac measurement (mass/v olume) < ng/mL <0.30 Automated blood complete blood count (he mogram) panel - 09/16/17 03:30 Blood leukocytes automated count (number/volume) 7.4 10*3/uL 4.3-11.0 Blood erythrocytes automated count (number/volume) 4.08 10*6/uL 4.35-5.85 Venous blood hemoglobin measurement (mass/volume) 11.8 g/dL 11.5-16.0 Blood hematocrit (volume fraction) 36 % 35-52 Automated erythrocyte mean corpuscular volume 88 [ foz_us] 80-99 Automated erythrocyte mean corpuscular h emoglobin (mass per erythrocyte) 29 pg 25-34 Automated erythrocyte mean corpuscular h emoglobin concentration measurement (mass/volume) 33 g/dL 32-36 Automated erythrocyte distribution width ratio 14. 0 % 10.0- 14.5 Automated blood platelet count (count/volume) 233 10*3/uL 130-400 Automated blood platelet mean volume measurement 10.6 [foz_us] 7.4-10.4 Whole blood basic metabolic panel - 18 03:30 Serum or plasma sodium measurement (moles/volume) 143 mmol/L 135-145 Serum or plasma potassium measurement (moles/volume) 3.1 mmol/L 3.6-5.0 Serum or plasma chloride measurement (moles/volume) 114 mmol/L 98-107 Carbon dioxide 20 mmol/L 21-32 Serum or plasma anion gap determination (moles/volume) 9 mmol/L 5-14 Serum or plasma urea nitrogen measurement (mass/volume ) 16 mg/dL 7-18 Serum or plasma creatinine measurement (mass/volume) 0.80 mg/dL 0.60-1.30 Serum or plasma urea nitrogen/creatinine mass ratio 20 NRG Serum or plasma creatinine measurement w ith calculation of estimated glomerular filtration rate > NRG Serum or plasma glucose measurement (mass/volume) 102 mg/dL 70-105 Serum or plasma calcium measurement (mass/volume) 8.5 mg/dL 8.5-10.1 Serum or plasma phosphate measurement (m ass/volume) - 09/16/17 03:30 Serum or plasma phosphate measurement (mass/volume) 3.1 mg/dL 2.3-4.7 Magnesium - 09/16/17 03:30 Magnesium 1.9 mg/dL 1.8-2.4 Lipid 1996 panel - 09/16/17 03:30 Serum or plasma triglyceride measurement (mass/volume) 67 mg/dL <150 Serum or plasma cholesterol measurement (mass/volume) 127 mg/dL < 200 Serum or plasma cholesterol in HDL measurement (mass/v olume) 45 mg/dL 40-60 Cholesterol in LDL [mass/volume] in serum or plasma by direct assay 70 mg/dL 1-129 Serum or plasma cholesterol in VLDL measurement (mass/ volume) 13 mg/dL 5-40 Complete blood count (CBC) with automate d white blood cell (WBC) differential - 09/17/17 17:00 Blood leukocytes automated count (number/volume) 9.5 10*3/uL 4.3-11.0 Blood erythrocytes automated count (number/volume) 4.23 10*6/uL 4.35-5.85 Venous blood hemoglobin measurement (mass/volume) 12.3 g/dL 11.5-16.0 Blood hematocrit (volume fraction) 37 % 35-52 Automated erythrocyte mean corpuscular volume 88 [ foz_us] 80-99 Automated erythrocyte mean corpuscular h emoglobin (mass per erythrocyte) 29 pg 25-34 Automated erythrocyte mean corpuscular h emoglobin concentration measurement (mass/volume) 33 g/dL 32-36 Automated erythrocyte distribution width ratio 13. 9 % 10.0- 14.5 Automated blood platelet count (count/volume) 232 10*3/uL 130-400 Automated blood platelet mean volume measurement 10.2 [foz_us] 7.4-10.4 Automated blood neutrophils/100 leukocytes 69 % 42-75 Automated blood lymphocytes/100 leukocytes 23 % 12-44 Blood monocytes/100 leukocytes 6 % 0-12 Automated blood eosinophils/100 leukocytes 2 % 0-10 Automated blood basophils/100 leukocytes 0 % 0-10 Blood neutrophils automated count (number/volume) 6.5 10*3 1.8-7.8 Blood lymphocytes automated count (number/volume) 2.2 10*3 1.0-4.0 Blood monocytes automated count (number/volume) 0. 6 10*3 0.0-1.0 Automated eosinophil count 0.2 10*3/uL 0 .0-0.3 Automated blood basophil count (count/volume) 0.0 10*3/uL 0.0-0.1 PT panel in platelet poor plasma by coag ulation assay - 09/17/17 17:00 Prothrombin time (PT) in platelet poor plasma by coagu lation assay 13.3 s 12.2-14.7 INR in platelet poor plasma or blood by coagulation as say 1.0 0.8-1.4 Activated partial thromboplastin time (a PTT) in platelet poor plasma bycoagulation assay - 09/17/17 17:00 Activated partial thromboplastin time (a PTT) in platelet poor plasma bycoagulation assay 35 s 24-35 Comprehensive metabolic panel - 09/17/17 17:00 Serum or plasma sodium measurement (moles/volume) 143 mmol/L 135-145 Serum or plasma potassium measurement (moles/volume) 3.9 mmol/L 3.6-5.0 Serum or plasma chloride measurement (moles/volume) 114 mmol/L 98-107 Carbon dioxide 22 mmol/L 21-32 Serum or plasma anion gap determination (moles/volume) 7 mmol/L 5-14 Serum or plasma urea nitrogen measurement (mass/volume ) 17 mg/dL 7-18 Serum or plasma creatinine measurement (mass/volume) 0.97 mg/dL 0.60-1.30 Serum or plasma urea nitrogen/creatinine mass ratio 18 NRG Serum or plasma creatinine measurement w ith calculation of estimated glomerular filtration rate > NRG Serum or plasma glucose measurement (mass/volume) 85 mg/dL 70-105 Serum or plasma calcium measurement (mass/volume) 9.6 mg/dL 8.5-10.1 Serum or plasma total bilirubin measurement (mass/volu me) 0.9 mg/dL 0.1-1.0 Serum or plasma alkaline phosphatase mario surement (enzymatic activity/volume) 107 U/L 40-136 Serum or plasma aspartate aminotransfera se measurement (enzymatic activity/volume) 37 U/L 5-34 Serum or plasma alanine aminotransferase measurement (enzymatic activity/volume) 36 U/L 0-55 Serum or plasma protein measurement (mass/volume) 6.9 g/dL 6.4-8.2 Serum or plasma albumin measurement (mass/volume) 4.0 g/dL 3.2-4.5 Magnesium - 09/17/17 17:00 Magnesium 2.0 mg/dL 1.8-2.4 Myoglobin, serum - 09/17/17 17:00 Myoglobin, serum 43.2 ng/mL 10.0-92.0 Serum or plasma troponin i.cardiac measu rement (mass/volume) - 09/17/17 17:00 Serum or plasma troponin i.cardiac measurement (mass/v olume) < ng/mL <0.30 Myoglobin, serum - 09/17/17 17:00 Myoglobin, serum 43.2 ng/mL 10.0-92.0 Serum or plasma troponin i.cardiac measu rement (mass/volume) - 09/17/17 22:50 Serum or plasma troponin i.cardiac measurement (mass/v olume) < ng/mL <0.30 Comprehensive metabolic panel - 09/18/17 05:20 Serum or plasma sodium measurement (moles/volume) 136 mmol/L 135-145 Serum or plasma potassium measurement (moles/volume) 3.9 mmol/L 3.6-5.0 Serum or plasma chloride measurement (moles/volume) 110 mmol/L 98-107 Carbon dioxide 17 mmol/L 21-32 Serum or plasma anion gap determination (moles/volume) 9 mmol/L 5-14 Serum or plasma urea nitrogen measurement (mass/volume ) 32 mg/dL 7-18 Serum or plasma creatinine measurement (mass/volume) 1.14 mg/dL 0.60-1.30 Serum or plasma urea nitrogen/creatinine mass ratio 28 NRG Serum or plasma creatinine measurement w ith calculation of estimated glomerular filtration rate 57 NRG Serum or plasma glucose measurement (mass/volume) 127 mg/dL 70-105 Serum or plasma calcium measurement (mass/volume) 9.0 mg/dL 8.5-10.1 Serum or plasma total bilirubin measurement (mass/volu me) 0.8 mg/dL 0.1-1.0 Serum or plasma alkaline phosphatase mario surement (enzymatic activity/volume) 77 U/L 40-136 Serum or plasma aspartate aminotransfera se measurement (enzymatic activity/volume) 15 U/L 5-34 Serum or plasma alanine aminotransferase measurement (enzymatic activity/volume) 21 U/L 0-55 Serum or plasma protein measurement (mass/volume) 6.7 g/dL 6.4-8.2 Serum or plasma albumin measurement (mass/volume) 4.0 g/dL 3.2-4.5 Serum or plasma phosphate measurement (m ass/volume) - 09/18/17 05:20 Serum or plasma phosphate measurement (mass/volume) 3.0 mg/dL 2.3-4.7 Magnesium - 09/18/17 05:20 Magnesium 2.4 mg/dL 1.8-2.4 Lipid 1996 panel - 09/18/17 05:20 Serum or plasma triglyceride measurement (mass/volume) 69 mg/dL <150 Serum or plasma cholesterol measurement (mass/volume) 96 mg/dL < 200 Serum or plasma cholesterol in HDL measurement (mass/v olume) 34 mg/dL 40-60 Cholesterol in LDL [mass/volume] in serum or plasma by direct assay 51 mg/dL 1-129 Serum or plasma cholesterol in VLDL measurement (mass/ volume) 14 mg/dL 5-40 Complete blood count (CBC) with automate d white blood cell (WBC) differential - 09/18/17 07:11 Blood leukocytes automated count (number/volume) 6.5 10*3/uL 4.3-11.0 Blood erythrocytes automated count (number/volume) 3.95 10*6/uL 4.35-5.85 Venous blood hemoglobin measurement (mass/volume) 11.5 g/dL 11.5-16.0 Blood hematocrit (volume fraction) 35 % 35-52 Automated erythrocyte mean corpuscular volume 88 [ foz_us] 80-99 Automated erythrocyte mean corpuscular h emoglobin (mass per erythrocyte) 29 pg 25-34 Automated erythrocyte mean corpuscular h emoglobin concentration measurement (mass/volume) 33 g/dL 32-36 Automated erythrocyte distribution width ratio 14. 0 % 10.0- 14.5 Automated blood platelet count (count/volume) 206 10*3/uL 130-400 Automated blood platelet mean volume measurement 10.0 [foz_us] 7.4-10.4 Automated blood neutrophils/100 leukocytes 63 % 42-75 Automated blood lymphocytes/100 leukocytes 26 % 12-44 Blood monocytes/100 leukocytes 8 % 0-12 Automated blood eosinophils/100 leukocytes 4 % 0-10 Automated blood basophils/100 leukocytes 0 % 0-10 Blood neutrophils automated count (number/volume) 4.1 10*3 1.8-7.8 Blood lymphocytes automated count (number/volume) 1.7 10*3 1.0-4.0 Blood monocytes automated count (number/volume) 0. 5 10*3 0.0-1.0 Automated eosinophil count 0.3 10*3/uL 0 .0-0.3 Automated blood basophil count (count/volume) 0.0 10*3/uL 0.0-0.1 Serum or plasma troponin i.cardiac measu rement (mass/volume) - 09/18/17 07:11 Serum or plasma troponin i.cardiac measurement (mass/v olume) < ng/mL <0.30 Serum or plasma thyrotropin measurement by detection limit <=0.05 miu/l (units/volume) - 09/18/17 07:11 Serum or plasma thyrotropin measurement by detection limit <=0.05 miu/l (units/volume) 2.59 u[iU]/mL 0.35-4.94 Complete blood count (CBC) with automate d white blood cell (WBC) differential - 09/19/17 03:36 Blood leukocytes automated count (number/volume) 5.7 10*3/uL 4.3-11.0 Blood erythrocytes automated count (number/volume) 3.80 10*6/uL 4.35-5.85 Venous blood hemoglobin measurement (mass/volume) 11.0 g/dL 11.5-16.0 Blood hematocrit (volume fraction) 33 % 35-52 Automated erythrocyte mean corpuscular volume 88 [ foz_us] 80-99 Automated erythrocyte mean corpuscular h emoglobin (mass per erythrocyte) 29 pg 25-34 Automated erythrocyte mean corpuscular h emoglobin concentration measurement (mass/volume) 33 g/dL 32-36 Automated erythrocyte distribution width ratio 13. 7 % 10.0- 14.5 Automated blood platelet count (count/volume) 213 10*3/uL 130-400 Automated blood platelet mean volume measurement 10.3 [foz_us] 7.4-10.4 Automated blood neutrophils/100 leukocytes 57 % 42-75 Automated blood lymphocytes/100 leukocytes 29 % 12-44 Blood monocytes/100 leukocytes 9 % 0-12 Automated blood eosinophils/100 leukocytes 4 % 0-10 Automated blood basophils/100 leukocytes 0 % 0-10 Blood neutrophils automated count (number/volume) 3.3 10*3 1.8-7.8 Blood lymphocytes automated count (number/volume) 1.7 10*3 1.0-4.0 Blood monocytes automated count (number/volume) 0. 5 10*3 0.0-1.0 Automated eosinophil count 0.3 10*3/uL 0 .0-0.3 Automated blood basophil count (count/volume) 0.0 10*3/uL 0.0-0.1 Whole blood basic metabolic panel - 11/30 03:36 Serum or plasma sodium measurement (moles/volume) 140 mmol/L 135-145 Serum or plasma potassium measurement (moles/volume) 3.5 mmol/L 3.6-5.0 Serum or plasma chloride measurement (moles/volume) 113 mmol/L 98-107 Carbon dioxide 20 mmol/L 21-32 Serum or plasma anion gap determination (moles/volume) 7 mmol/L 5-14 Serum or plasma urea nitrogen measurement (mass/volume ) 12 mg/dL 7-18 Serum or plasma creatinine measurement (mass/volume) 0.76 mg/dL 0.60-1.30 Serum or plasma urea nitrogen/creatinine mass ratio 16 NRG Serum or plasma creatinine measurement w ith calculation of estimated glomerular filtration rate > NRG Serum or plasma glucose measurement (mass/volume) 97 mg/dL 70-105 Serum or plasma calcium measurement (mass/volume) 8.5 mg/dL 8.5-10.1 Serum or plasma phosphate measurement (m ass/volume) - 09/19/17 03:36 Serum or plasma phosphate measurement (mass/volume) 3.1 mg/dL 2.3-4.7 Magnesium - 09/19/17 03:36 Magnesium 2.1 mg/dL 1.8-2.4 Automated blood complete blood count (he mogram) panel - 09/21/18 08:04 Blood leukocytes automated count (number/volume) 5.8 10*3/uL 4.3-11.0 Blood erythrocytes automated count (number/volume) 4.39 10*6/uL 4.35-5.85 Venous blood hemoglobin measurement (mass/volume) 12.5 g/dL 11.5-16.0 Blood hematocrit (volume fraction) 40 % 35-52 Automated erythrocyte mean corpuscular volume 90 [ foz_us] 80-99 Automated erythrocyte mean corpuscular h emoglobin (mass per erythrocyte) 29 pg 25-34 Automated erythrocyte mean corpuscular h emoglobin concentration measurement (mass/volume) 32 g/dL 32-36 Automated erythrocyte distribution width ratio 14. 1 % 10.0- 14.5 Automated blood platelet count (count/volume) 254 10*3/uL 130-400 Automated blood platelet mean volume measurement 10.6 [foz_us] 7.4-10.4 PT panel in platelet poor plasma by coag ulation assay - 09/21/18 08:04 Prothrombin time (PT) in platelet poor plasma by coagu lation assay 14.0 s 12.2-14.7 INR in platelet poor plasma or blood by coagulation as say 1.0 0.8-1.4 Activated partial thromboplastin time (a PTT) in platelet poor plasma bycoagulation assay - 09/21/18 08:04 Activated partial thromboplastin time (a PTT) in platelet poor plasma bycoagulation assay 42 s 24-35 Comprehensive metabolic panel - 09/21/18 08:04 Serum or plasma sodium measurement (moles/volume) 143 mmol/L 135-145 Serum or plasma potassium measurement (moles/volume) 3.6 mmol/L 3.6-5.0 Serum or plasma chloride measurement (moles/volume) 111 mmol/L 98-107 Carbon dioxide 24 mmol/L 21-32 Serum or plasma anion gap determination (moles/volume) 8 mmol/L 5-14 Serum or plasma urea nitrogen measurement (mass/volume ) 19 mg/dL 7-18 Serum or plasma creatinine measurement (mass/volume) 1.13 mg/dL 0.60-1.30 Serum or plasma urea nitrogen/creatinine mass ratio 17 NRG Serum or plasma creatinine measurement w ith calculation of estimated glomerular filtration rate 58 NRG Serum or plasma glucose measurement (mass/volume) 100 mg/dL 70-105 Serum or plasma calcium measurement (mass/volume) 9.4 mg/dL 8.5-10.1 Serum or plasma total bilirubin measurement (mass/volu me) 0.7 mg/dL 0.1-1.0 Serum or plasma alkaline phosphatase mario surement (enzymatic activity/volume) 110 U/L 40-136 Serum or plasma aspartate aminotransfera se measurement (enzymatic activity/volume) 13 U/L 5-34 Serum or plasma alanine aminotransferase measurement (enzymatic activity/volume) 16 U/L 0-55 Serum or plasma protein measurement (mass/volume) 7.2 g/dL 6.4-8.2 Serum or plasma albumin measurement (mass/volume) 4.3 g/dL 3.2-4.5 CALCIUM CORRECTED 9.2 mg/dL 8.5-10.1 Methicillin resistant Staphylococcus aur eus (MRSA) screening culture - 09/21/18 08:04 Methicillin resistant Staphylococcus aureus (MRSA) scr eening culture NEG NRG Complete blood count (CBC) with automate d white blood cell (WBC) differential - 09/27/19 16:04 Blood leukocytes automated count (number/volume) 5.8 10*3/uL 4.3-11.0 Blood erythrocytes automated count (number/volume) 4.38 10*6/uL 4.35-5.85 Venous blood hemoglobin measurement (mass/volume) 12.5 g/dL 11.5-16.0 Blood hematocrit (volume fraction) 40 % 35-52 Automated erythrocyte mean corpuscular volume 91 [ foz_us] 80-99 Automated erythrocyte mean corpuscular h emoglobin (mass per erythrocyte) 29 pg 25-34 Automated erythrocyte mean corpuscular h emoglobin concentration measurement (mass/volume) 31 g/dL 32-36 Automated erythrocyte distribution width ratio 14. 0 % 10.0- 14.5 Automated blood platelet count (count/volume) 239 10*3/uL 130-400 Automated blood platelet mean volume measurement 10.3 [foz_us] 7.4-10.4 Automated blood neutrophils/100 leukocytes 51 % 42-75 Automated blood lymphocytes/100 leukocytes 37 % 12-44 Blood monocytes/100 leukocytes 8 % 0-12 Automated blood eosinophils/100 leukocytes 3 % 0-10 Automated blood basophils/100 leukocytes 0 % 0-10 Blood neutrophils automated count (number/volume) 3.0 10*3 1.8-7.8 Blood lymphocytes automated count (number/volume) 2.1 10*3 1.0-4.0 Blood monocytes automated count (number/volume) 0. 5 10*3 0.0-1.0 Automated eosinophil count 0.2 10*3/uL 0 .0-0.3 Automated blood basophil count (count/volume) 0.0 10*3/uL 0.0-0.1 Comprehensive metabolic panel - 09/27/19 16:04 Serum or plasma sodium measurement (moles/volume) 141 mmol/L 135-145 Serum or plasma potassium measurement (moles/volume) 3.8 mmol/L 3.6-5.0 Serum or plasma chloride measurement (moles/volume) 111 mmol/L 98-107 Carbon dioxide 19 mmol/L 21-32 Serum or plasma anion gap determination (moles/volume) 11 mmol/L 5-14 Serum or plasma urea nitrogen measurement (mass/volume ) 21 mg/dL 7-18 Serum or plasma creatinine measurement (mass/volume) 1.12 mg/dL 0.60-1.30 Serum or plasma urea nitrogen/creatinine mass ratio 19 NRG Serum or plasma creatinine measurement w ith calculation of estimated glomerular filtration rate 58 NRG Serum or plasma glucose measurement (mass/volume) 118 mg/dL 70-105 Serum or plasma calcium measurement (mass/volume) 9.3 mg/dL 8.5-10.1 Serum or plasma total bilirubin measurement (mass/volu me) 0.8 mg/dL 0.1-1.0 Serum or plasma alkaline phosphatase mario surement (enzymatic activity/volume) 101 U/L 40-136 Serum or plasma aspartate aminotransfera se measurement (enzymatic activity/volume) 17 U/L 5-34 Serum or plasma alanine aminotransferase measurement (enzymatic activity/volume) 12 U/L 0-55 Serum or plasma protein measurement (mass/volume) 7.6 g/dL 6.4-8.2 Serum or plasma albumin measurement (mass/volume) 4.4 g/dL 3.2-4.5 CALCIUM CORRECTED 9.0 mg/dL 8.5-10.1 THYROID STIMULATING HORMONE - 09/27/19 1 6:04 THYROID STIMULATING HORMONE 0.31 u[iU]/mL 0.35-4.94 Serum or plasma folate measurement (mass /volume) - 09/27/19 16:04 Serum or plasma folate measurement (mass/volume) 8 .2 % >=4.0 Hemoglobin A1c measurement - 09/27/19 16 :04 Blood hemoglobin A1C measurement (mass/volume) 5.2 % 4.0-5.6 MEAN BLOOD GLUCOSE 103 % <=126 VITAMIN B 12 - 09/27/19 16:04 VITAMIN B 12 408 pg/mL 190-1100 Comprehensive metabolic panel - 10/04/19 08:51 Serum or plasma sodium measurement (moles/volume) 141 mmol/L 135-145 Serum or plasma potassium measurement (moles/volume) 3.9 mmol/L 3.6-5.0 Serum or plasma chloride measurement (moles/volume) 112 mmol/L 98-107 Carbon dioxide 19 mmol/L 21-32 Serum or plasma anion gap determination (moles/volume) 10 mmol/L 5-14 Serum or plasma urea nitrogen measurement (mass/volume ) 28 mg/dL 7-18 Serum or plasma creatinine measurement (mass/volume) 0.99 mg/dL 0.60-1.30 Serum or plasma urea nitrogen/creatinine mass ratio 28 NRG Serum or plasma creatinine measurement w ith calculation of estimated glomerular filtration rate > NRG Serum or plasma glucose measurement (mass/volume) 131 mg/dL 70-105 Serum or plasma calcium measurement (mass/volume) 8.9 mg/dL 8.5-10.1 Serum or plasma total bilirubin measurement (mass/volu me) 0.7 mg/dL 0.1-1.0 Serum or plasma alkaline phosphatase mario surement (enzymatic activity/volume) 155 U/L 40-136 Serum or plasma aspartate aminotransfera se measurement (enzymatic activity/volume) 22 U/L 5-34 Serum or plasma alanine aminotransferase measurement (enzymatic activity/volume) 40 U/L 0-55 Serum or plasma protein measurement (mass/volume) 6.7 g/dL 6.4-8.2 Serum or plasma albumin measurement (mass/volume) 3.9 g/dL 3.2-4.5 CALCIUM CORRECTED 9.0 mg/dL 8.5-10.1 THYROID STIMULATING HORMONE - 10/04/19 0 8:51 THYROID STIMULATING HORMONE 0.64 u[iU]/mL 0.35-4.94 Comprehensive metabolic panel - 11/01/19 16:04 Serum or plasma sodium measurement (moles/volume) 142 mmol/L 135-145 Serum or plasma potassium measurement (moles/volume) 4.1 mmol/L 3.6-5.0 Serum or plasma chloride measurement (moles/volume) 110 mmol/L 98-107 Carbon dioxide 21 mmol/L 21-32 Serum or plasma anion gap determination (moles/volume) 11 mmol/L 5-14 Serum or plasma urea nitrogen measurement (mass/volume ) 26 mg/dL 7-18 Serum or plasma creatinine measurement (mass/volume) 1.35 mg/dL 0.60-1.30 Serum or plasma urea nitrogen/creatinine mass ratio 19 NRG Serum or plasma creatinine measurement w ith calculation of estimated glomerular filtration rate 47 NRG Serum or plasma glucose measurement (mass/volume) 114 mg/dL 70-105 Serum or plasma calcium measurement (mass/volume) 9.4 mg/dL 8.5-10.1 Serum or plasma total bilirubin measurement (mass/volu me) 0.6 mg/dL 0.1-1.0 Serum or plasma alkaline phosphatase mario surement (enzymatic activity/volume) 87 U/L 40-136 Serum or plasma aspartate aminotransfera se measurement (enzymatic activity/volume) 15 U/L 5-34 Serum or plasma alanine aminotransferase measurement (enzymatic activity/volume) 23 U/L 0-55 Serum or plasma protein measurement (mass/volume) 7.1 g/dL 6.4-8.2 Serum or plasma albumin measurement (mass/volume) 4.0 g/dL 3.2-4.5 CALCIUM CORRECTED 9.4 mg/dL 8.5-10.1 VITAMIN D 25-HYDROXY - 11/01/19 16:04 VITAMIN D 25-HYDROXY (TOTAL) 11.8 % 3 0.0-100.0 Coronavirus SARS-CoV-2 SO 2018 - 0 08:57 Coronavirus Ab [Units/volume] in Serum DETECTED Not Detecte Encounters ACCT No. Visit Date/Time Discharge Status Pt. Type Provider Facility Loc./Unit Complaint [id number] 09/26/2017 12:16:50 09/26/2017 23:59:5 9 CLS Outpatient [id number] 11/01/2019 15:39:00 020 23:59:59 CLS Outpatient GIO BRADY MD [facility] LAB [id number] 10/04/2019 08:34:00 23:59:59 CLS Outpatient Janet PLEITEZ MD [facility] LAB Z51.81 [id number] 09/27/2019 15:41:00 23:59:59 CLS Outpatient GIO BRADY MD [facility] LAB [id number] 06/11/2019 07:27:00 23:59:59 CLS Outpatient Janet PLEITEZ MD [facility] RT MEDICATION MONITORING E NCOUTER [id number] 05/21/2019 07:16:00 23:59:59 CLS Outpatient ASYA VALDEZ APRN [facility] RAD SCREENING [id number] 10/19/2018 15:47:00 23:59:59 CLS Outpatient ASYA VALDEZ APRN [facility] RAD NECK PAIN [id number] 09/21/2018 07:43:00 16:53:00 DIS Outpatient Janet PLEITEZ MD [facility] CATH L UE SWELLING [id number] 09/14/2018 12:48:00 23:59:59 CLS Outpatient Janet PLEITEZ MD [facility] CARD PAF [id number] 03/01/2018 14:42:00 23:59:59 CLS Preadmit ALEX PLEITEZ MD [facility] CARD PAF [id number] 01/30/2018 11:51:00 23:59:59 CLS Outpatient GIO BRADY MD [facility] RAD LOW BACK BOB [id number] 12/07/2017 14:19:00 23:59:59 CLS Outpatient Janet PLEITEZ MD [facility] RT ATRIAL FIBRILLATION [id number] 11/18/2017 08:01:00 018 23:59:59 CLS Outpatient GLEN STANTON MD [facility] RAD RT SOLID NODULE THYROI D LOBE [id number] 10/11/2017 12:08:00 018 23:59:59 CLS Outpatient Janet PLEITEZ MD [facility] RAD THYROID NODULE [id number] 09/28/2017 14:57:00 018 23:59:59 CLS Outpatient Janet PLEITEZ MD [facility] RAD Z12.31 BREAST SCREENING [id number] 09/18/2017 10:06:00 018 11:45:00 DIS Inpatient UDAY WHITLEY, MIRACLE Gonzales [facility] ICU A FIB AND RVR,CHEST IMELDA N [id number] 09/15/2017 15:18:00 018 15:30:00 DIS Inpatient MAIK WHITLEY, Janet MANTILLA [facility] ICU HEART CATHETERIZATION W CORONARY ANGIOGRAPHY,POSS- [id number] 12/19/2019 16:02:[address] Outpatient ASAY VALDEZ APRN [facility] RAD COUGH, DYSPNEA [id number] 12/19/2019 08:29:[address] Outpatient GIO BRADY MD [facility] LABNPT
[2019-12-20 10:50] LABS: ABG BASE EXCESS -0.6 MMOL/L (-2.5-2.5); ABG OXYGEN SATURATION 98 % (94-100); ABG PCO2 30 MMHG (35-45); ABG PH 7.48 (7.37-7.43); ABG PO2 90 MMHG (79-93); ABG TCO2 23.7 MMOL/L (21.0-31.0)
[2019-12-20 10:51] LABS: ALLENS TEST YES-POS; INSPIRED O2 ROOM AIR; PATIENT TEMP 35.6; VENTILATOR NO
--- NOTE | 2019-12-20 10:52 | ED Respiratory ---
General Stated Complaint: COVID + Source: patient Exam Limitations: no limitations History of Present Illness Date Seen by Provider: Dec 20, 2019 Time Seen by Provider: 10:24 Initial Comments Patient presents ER by private conveyance with chief complaint of worsening shortness of breath since Tuesday, 2 days ago. She had a positive COVID-19 test through her primary care doctor's office, Dr. Nance. She was notified this morning by health department. She's not had any fevers or chills but just all over body aches diarrhea. No nausea vomiting. Her cough is nonproductive. No history of lung disease and does not smoke cigarettes. She's been using Mucinex [id number]-[id number] but no antipyretics. No history of heart disease. The patient was started on azithromycin and took her first dose today. She is diabetic not on insulin. She does not check her blood sugars routinely. She has a history of left-sided AICD placement. Patient did excelsior picker the hydroxychloroquine prescribed by primary care but has not started it yet. Allergies and Home Medications Allergies Coded Allergies: codeine (Verified Allergy, Unknown, 09/15/17) meperidine (Verified Allergy, Unknown, 09/15/17) morphine (Verified Allergy, Unknown, 09/15/17) Home Medications Amiodarone HCl Unknown Strength Tablet, Unknown Dose PO DAILY, (Reported) Apixaban 5 Mg Tablet, 5 MG PO BID, (Reported) Atorvastatin Calcium 20 Mg Tablet, 20 MG PO HS, (Reported) Benzonatate 100 Mg Capsule, 100 MG PO BID Prescribed by: LIBERTAD HADLEY on 12/20/19 1213 Carvedilol 25 Mg Tablet, 25 MG PO BID, (Reported) Diltiazem HCl 180 Mg Cap.er.24h, 180 MG PO DAILY Prescribed by: Janet PLEITEZ on 09/19/17 0958 Ferrous Sulfate 325 Mg Tablet, 325 MG PO BID, (Reported) Furosemide 20 Mg Tablet, 20 MG PO DAILY, (Reported) Isosorbide Mononitrate 60 Mg Tab, 60 MG PO DAILY, (Reported) Lisinopril 20 Mg Tablet, 20 MG PO DAILY, (Reported) Ondansetron 4 Mg Tab.rapdis, 4 MG PO Q6H PRN for NAUSEA/VOMITING Prescribed by: LIBERTAD HADLEY on 12/20/19 1226 Ranitidine HCl 150 Mg Tablet, 150 MG PO BID, (Reported) Patient Home Medication List Home Medication List Reviewed: Yes Review of Systems Review of Systems Constitutional: chills; No diaphoresis, No fever; malaise, weakness EENTM: No ear discharge, No ear pain Respiratory: cough; No phlegm; short of breath; No wheezing Cardiovascular: No chest pain, No edema, No Hx of Intervention Gastrointestinal: No abdominal pain, No constipation, No nausea, No vomiting Genitourinary: No discharge, No dysuria Musculoskeletal: No back pain, No joint pain Skin: No pruritus, No rash All Other Systems Reviewed Negative Unless Noted: Yes Past Lrovaxi-Dxzmcy-Oxcojw Hx Patient Social History Alcohol Use: Denies Use Recreational Drug Use: No Smoking Status: Never a Smoker 2nd Hand Smoke Exposure: No Recent Hopitalizations: No Immunizations Up To Date Date of Pneumonia Vaccine: Feb 17, 2017 Seasonal Allergies Seasonal Allergies: No Past Medical History Surgeries: Yes Coronary Stent, Defibrillator, Pacemaker Respiratory: No Cardiac: Yes (pacemaker/defib implant) Atrial Fibrillation, Coronary Artery Disease, Hypertension, Irregular Heartbeat Neurological: No Reproductive Disorders: No Sexually Transmitted Disease: No Genitourinary: No Gastrointestinal: No Gastroesophageal Reflux, Gall Bladder Disease Musculoskeletal: Yes Degenerate Disk Disease, Chronic Back Pain Endocrine: Yes Diabetes, Non-Insulin dep HEENT: No Cancer: No Psychosocial: No Integumentary: No Blood Disorders: No Family Medical History Heart Disease Physical Exam Vital Signs - First Documented 12/20/19 10:35 Temp 35.7 Pulse 82 Resp 16 B/P (MAP) 142/95 (111) Pulse Ox 97 O2 Delivery Room Air Capillary Refill : Height: 5'5.00" Weight: 247lbs. 0.0oz. [id number]; 41.1 BMI Method:Estimated General Appearance: WD/WN, mild distress, obese Eyes: Bilateral Eye Normal Inspection, Bilateral Eye PERRL, Bilateral Eye EOMI HEENT: PERRL/EOMI, normal ENT inspection, TMs normal, pharynx normal Neck: non-tender, full range of motion, supple, normal inspection Respiratory: lungs clear, normal breath sounds, respiratory distress (mild with oxygen sats in the mid to upper 90s on room air. 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 and mild), accessory muscle use (mild) Cardiovascular: normal peripheral pulses, regular rate, rhythm Gastrointestinal: normal bowel sounds, non tender, soft, no organomegaly Neurologic/Psychiatric: alert, oriented x 3 Skin: normal color, warm/dry Progress/Results/Core Measures Suspected Sepsis SIRS Temperature: Pulse: Respiratory Rate: Laboratory Tests 12/20/19 10:45: White Blood Count 4.4 Blood Pressure / Mean: Laboratory Tests 12/20/19 10:45: Creatinine 1.20, Platelet Count 241, Total Bilirubin 0.7 Results/Orders Lab Results Laboratory Tests Test 12/20/19 10:39 12/20/19 10:45 Range/Units Blood Gas Puncture Site RIGHT RADIAL Blood Gas Patient Temperature 35.6 Arterial Blood pH 7.48 H 7.37-7.43 Arterial Blood Partial Pressure CO2 30 L 35-45 MMHG Arterial Blood Partial Pressure O2 90 79-93 MMHG Arterial Blood HCO3 23 23-27 MMOL/L Arterial Blood Total CO2 23.7 21.0-31.0 MMOL/L Arterial Blood Oxygen Saturation 98 94-100 % Arterial Blood Base Excess -0.6 -2.5-2.5 MMOL/L Christiano Test YES-POS Blood Gas Ventilator Setting NO Blood Gas Inspired Oxygen ROOM AIR White Blood Count 4.4 4.3-11.0 10^3/uL Red Blood Count 4.14 L 4.35-5.85 10^6/uL Hemoglobin 12.1 11.5-16.0 G/DL Hematocrit 38 35-52 % Mean Corpuscular Volume 92 80-99 FL Mean Corpuscular Hemoglobin 29 25-34 PG Mean Corpuscular Hemoglobin Concent 32 32-36 G/DL Red Cell Distribution Width 14.3 10.0-14.5 % Platelet Count 241 130-400 10^3/uL Mean Platelet Volume 10.4 7.4-10.4 FL Neutrophils (%) (Auto) 56 42-75 % Lymphocytes (%) (Auto) 30 12-44 % Monocytes (%) (Auto) 12 0-12 % Eosinophils (%) (Auto) 3 0-10 % Basophils (%) (Auto) 0 0-10 % Neutrophils # (Auto) 2.5 1.8-7.8 X 10^3 Lymphocytes # (Auto) 1.3 1.0-4.0 X 10^3 Monocytes # (Auto) 0.5 0.0-1.0 X 10^3 Eosinophils # (Auto) 0.1 0.0-0.3 10^3/uL Basophils # (Auto) 0.0 0.0-0.1 10^3/uL D-Dimer < 0.27 0.00-0.49 UG/ML Sodium Level 142 135-145 MMOL/L Potassium Level 4.3 3.6-5.0 MMOL/L Chloride Level 111 H 98-107 MMOL/L Carbon Dioxide Level 18 L 21-32 MMOL/L Anion Gap 13 5-14 MMOL/L Blood Urea Nitrogen 19 H 7-18 MG/DL Creatinine 1.20 0.60-1.30 MG/DL Estimat Glomerular Filtration Rate 54 BUN/Creatinine Ratio 16 Glucose Level 99 70-105 MG/DL Calcium Level 9.3 8.5-10.1 MG/DL Corrected Calcium 9.2 8.5-10.1 MG/DL Total Bilirubin 0.7 0.1-1.0 MG/DL Aspartate Amino Transf (AST/SGOT) 18 5-34 U/L Alanine Aminotransferase (ALT/SGPT) 17 0-55 U/L Alkaline Phosphatase 80 40-136 U/L Troponin I < 0.028 <0.028 NG/ML C-Reactive Protein High Sensitivity 0.17 0.00-0.50 MG/DL Total Protein 7.4 6.4-8.2 GM/DL Albumin 4.1 3.2-4.5 GM/DL Procalcitonin 0.06 <0.10 NG/ML My Orders Orders - LIBERTAD HADLEY Ed Iv/Invasive Line Start (12/20/19 10:42) Lactated Ringers (Lr 1000 Ml Iv Solution (12/20/19 10:42) Arterial Blood Gas (12/20/19 10:42) Cbc With Automated Diff (12/20/19 10:44) Comprehensive Metabolic Panel (12/20/19 10:44) Fibrin Degradation Products (12/20/19 10:44) Procalcitonin (Pct) (12/20/19 10:44) Hs C Reactive Protein (12/20/19 10:44) Blood Culture (12/20/19 10:44) Sputum Culture (12/20/19 10:44) Ekg Tracing (12/20/19 10:44) Chest 1 View, Ap/Pa Only (12/20/19 10:44) Covid-19 External Lab Results (12/20/19 10:44) Troponin I (12/20/19 10:44) Ondansetron Injection (Zofran Injectio (12/20/19 12:30) Medications Given in ED Current Medications Medications Dose Ordered Sig/Maryann Route Start Time Stop Time Status Last Admin Dose Admin Lactated Ringer's 1,000 ml @ 0 mls/hr Q0M ONCE IV 12/20/19 10:42 12/20/19 10:45 DC 12/20/19 11:06 1,000 MLS/HR Ondansetron HCl 8 mg ONCE ONCE IVP 12/20/19 12:30 12/20/19 12:31 DC 12/20/19 12:39 8 MG Vital Signs/I&O 12/20/19 10:35 Temp 35.7 Pulse 82 Resp 16 B/P (MAP) 142/95 (111) Pulse Ox 97 O2 Delivery Room Air Capillary Refill : Progress Note #1: Time: 10:51 Progress Note She has some exertional dyspnea with normal vital signs. She has some comorbidities of hypertension and diabetes. Plan to check some labs including an ABG, chest x-ray, EKG and troponin. D-dimer to help rule out possibility of pulmonary embolism. Progress Note #2: Time: 12:09 Progress Note Patient appears to have COVID-19 pneumonia and her ABG reveals some hyperventilation but not likely due to hypoxia more likely from anxiety. She has otherwise unremarkable labs without any significant Y derangements or end organ dysfunction. No evidence of pulmonary embolism. Plan to give her some Toradol for her body aches and let her follow up with her primary care office. ECG Initial ECG Impression Date: Dec 20, 2019 Initial ECG Impression Time: 10:53 Initial ECG Rate: 61 Initial ECG Rhythm: Normal Sinus Initial ECG Intervals: Normal Initial ECG Impression: Normal Comment Atrial sensed, ventricular paced rhythm without clinically relevant ST elevation or depression. Diagnostic Imaging Diagonstic Imaging: Xray Plain Films/CT/US/NM/MRI: chest Comments NAME: GAGANDEEP KIM MED REC#: [id number] PT STATUS: REG ER : 1950 PHYSICIAN: LIBERTAD HADLEY MD ADMIT DATE: 12/20/19/ER Draft Date of Exam:12/20/19 CHEST 1 VIEW, AP/PA ONLY INDICATION: soa COMPARISON: 12/19/2019 FINDINGS: Single frontal view of the chest demonstrates normal heart size and pulmonary vascularity. The lungs are well aerated and clear. No large pleural effusion or pneumothorax is seen. The visualized osseous structures show no acute abnormalities. Left-sided AICD is noted. IMPRESSION: 1. No acute cardiopulmonary process. Dictated on workstation # [id number] Dict: 12/20/19 1130 Trans: 12/20/19 1132 [facility] [id number] Interpreted by: YUN AN MD Electronically signed by: Reviewed: Reviewed by Me Departure Communication (PCP) Discussed the case with Dr. Nance, primary care. She recommends azithromycin and hydroxychloroquine. Impression Primary Impression: Viral pneumonia Additional Impression: covid 19 Disposition: 01 HOME, SELF-CARE Condition: Stable Departure-Patient Inst. Decision time for Depature: 12:10 Referrals: GIO NANCE MD (PCP/Family) Primary Care Physician Patient Instructions: Coronavirus Disease 2019 (COVID-19) (DC) Add. Discharge Instructions: Tessalon Perles 1 capsule every 6 hours as necessary for cough. Tylenol 1000 mg every 8 hours as necessary for body aches or fever. Ondansetron 4 mg under the tongue every 6 hours as necessary for nausea or vomiting. Imodium take 2 tablets (4mg) followed by one more tablet, 2 mg every 4 hours afterwards if you're still having watery, loose stools. Continue taking the azithromycin. Call Dr. Nance's office for continued management. Return to the ER promptly if you have worsening difficulty breathing or other concerning symptoms. Scripts Ondansetron (Ondansetron Odt) 4 Mg Tab.rapdis 4 MG PO Q6H PRN for NAUSEA/VOMITING, #20 TAB 0 Refills Prov: LIBERTAD HADLEY 12/20/19 Benzonatate (TESSALON PERLES) 100 Mg Capsule 100 MG PO BID for 7 Days, #30 CAP 0 Refills Prov: LIBERTAD HADLEY 12/20/19 LIBERTAD HADLEY Dec 20, 2019 10:52
[2019-12-20 10:57] LABS: BASOPHILS % (AUTO) 0 % (0-10); EOSINOPHILS # (AUTO) 0.1 10^3/uL (0.0-0.3); EOSINOPHILS % (AUTO) 3 % (0-10); HEMATOCRIT 38 % (35-52); HEMOGLOBIN 12.1 G/DL (11.5-16.0); LYMPHOCYTES # (AUTO) 1.3 X 10^3 (1.0-4.0); LYMPHOCYTES % (AUTO) 30 % (12-44); MEAN CORPUSCULAR HEMOGLOBIN 29 PG (25-34); MEAN CORPUSCULAR HGB CONC 32 G/DL (32-36); MEAN CORPUSCULAR VOLUME 92 FL (80-99); MEAN PLATELET VOLUME 10.4 FL (7.4-10.4); MONOCYTES # (AUTO) 0.5 X 10^3 (0.0-1.0); MONOCYTES % (AUTO) 12 % (0-12); NEUTROPHILS # (AUTO) 2.5 X 10^3 (1.8-7.8); NEUTROPHILS % (AUTO) 56 % (42-75); PLATELET COUNT 241 10^3/uL (130-400); RED CELL DISTRIBUTION WIDTH 14.3 % (10.0-14.5); WHITE BLOOD COUNT 4.4 10^3/uL (4.3-11.0)
[2019-12-20] MEDS ORDERED: NS 100 ML (IVPB) BAG IV ONE (11:15)
[2019-12-20] MEDS ORDERED: BARIUM SUSPENSION 2.1% (VANILLA SILQ) 450 ML PO ONE (11:15)
[2019-12-20] MEDS ORDERED: CATHETER FLUSH 10 ML SYR IV PRN (11:15)
[2019-12-20] MEDS ORDERED: HOLD METFORMIN - RECEIVED CONTRAST 20 ML VIAL IV SCH (11:15)
[2019-12-20] MEDS ORDERED: IOHEXOL 350 MG/ML 100 ML (OMNIPAQUE 350) VIAL IV ONE (11:15)
[2019-12-20 11:18] LABS: ALANINE AMINOTRANSFERASE 17 U/L (0-55); ALBUMIN 4.1 GM/DL (3.2-4.5); ALKALINE PHOSPHATASE 80 U/L (40-136); BILIRUBIN,TOTAL 0.7 MG/DL (0.1-1.0); BUN/CREATININE RATIO 16; CALCIUM 9.3 MG/DL (8.5-10.1); CARBON DIOXIDE 18 MMOL/L (21-32); CHLORIDE 111 MMOL/L (98-107); GFR ESTIMATED 54; GLUCOSE 99 MG/DL (70-105); POTASSIUM 4.3 MMOL/L (3.6-5.0); SODIUM 142 MMOL/L (135-145); TOTAL PROTEIN 7.4 GM/DL (6.4-8.2)
--- NOTE | 2019-12-20 11:33 | Diagnostic Imaging Report ---
INDICATION: soa COMPARISON: 12/19/2019 FINDINGS: Single frontal view of the chest demonstrates normal heart size and pulmonary vascularity. The lungs are well aerated and clear. No large pleural effusion or pneumothorax is seen. The visualized osseous structures show no acute abnormalities. Left-sided AICD is noted. IMPRESSION: 1. No acute cardiopulmonary process. Dictated by: Dictated on workstation # [id number]
[2019-12-20] MEDS ORDERED: BENZ100C18 PO (12:13)
[2019-12-20] MEDS ORDERED: ONDA4TAB11 PO (12:26)
[2019-12-20] MEDS ORDERED: ONDANSETRON 4 MG/2 ML (SDV) Z0FRAN IVP ONE (12:30)
[2019-12-20 12:42] VITALS: BP 145/65
== END 2019-12-20 12:42 | disposition home or self-care (01) ==
LOC: EDUNIT# 10:22 → ER 10:24
DX: U07.1 COVID-19 (principal); J12.89 Other viral pneumonia; I10 Essential (primary) hypertension; I25.10 Atherosclerotic heart disease of native coronary artery without angina pectoris; K21.9 Gastro-esophageal reflux disease without esophagitis; Z88.5 Allergy status to narcotic agent; Z79.01 Long term (current) use of anticoagulants; Z95.5 Presence of coronary angioplasty implant and graft; Z95.810 Presence of automatic (implantable) cardiac defibrillator; Z82.49 Family history of ischemic heart disease and other diseases of the circulatory system
CPT/HCPCS: 36415; 71045; 80053; 82805; 84145; 84484; 85025; 85379; 86141; 87040; 93005; 96374

== ENCOUNTER 2020-01-12 17:18 | Emergency (ER) | payer MEDICARE ==
[~2020-01-12] VITALS: Ht 171 cm; Wt 112.5 kg
[~2020-01-12 17:18] MED LIST changes: +ALBU18HF2 PO; +AMIO100T PO; +BENZ100C18 PO; +CEPH250C PO; +CHOL100048 PO; +DILT180T9 PO; +GABA-486 PO; +HYDR200T46 PO; +ONDA4TAB11 PO; +PRED10TA22 PO
[2020-01-12] MEDS ORDERED: NS IV 1000 ML 1,000 ML IV SCH (18:57)
[2020-01-12] MEDS ORDERED: fentaNYL INJECTION 100 MCG/2 ML AMP IVP ONE (19:00)
[2020-01-12] MEDS ORDERED: ONDANSETRON 4 MG/2 ML (SDV) Z0FRAN IVP ONE (19:00)
--- NOTE | 2020-01-12 19:13 | ED Headache ---
General Chief Complaint: Head/Cervical Problems Stated Complaint: HEADACHE Nursing Triage Note: pt alingt in by [facility] from home with complaint of headache that started this morning and abd pain. states does not feel like she is having normal bowel movements. states took neighbors hydrocodone that did not releive headache. Nursing Sepsis Screen: No Definite Risk Source: patient Exam Limitations: no limitations History of Present Illness Date Seen by Provider: Jan 12, 2020 Time Seen by Provider: 18:49 Initial Comments This 69 year old woman presents to the ER with complaints of headache since she woke this morning. She does not have a history of severe headaches and has never had a headache like this before. She is on Eliquis. The pain is sharp and in the frontal region. She has a hard time focusing and keeping her eyes open but does not have any gross visual deficits. She has a little difficulty with balance but has not focal neurologic complaints. She took a neighbors hydrocodone without improvement. She has associated nausea. Patient reports blood sugars were in the 90s yesterday. Allergies and Home Medications Allergies Coded Allergies: codeine (Verified Allergy, Unknown, 09/15/17) meperidine (Verified Allergy, Unknown, 09/15/17) morphine (Verified Allergy, Unknown, 09/15/17) Home Medications Albuterol Sulfate 18 Gm Hfa.aer.ad, 2 PUFF PO Q4H PRN for SHORTNESS OF BREATH, (Reported) Amiodarone HCl 100 Mg Tablet, 100 MG PO DAILY, (Reported) Apixaban 5 Mg Tablet, 5 MG PO BID, (Reported) Atorvastatin Calcium 20 Mg Tablet, 20 MG PO HS, (Reported) Carvedilol 25 Mg Tablet, 25 MG PO BID, (Reported) Cephalexin 250 Mg Capsule, 500 MG PO BID Prescribed by: SHILPA FREIRE on 12/31/19 1407 Cholecalciferol (Vitamin D3) 25 Mcg Capsule, 25 MCG PO DAILY, (Reported) Cyclobenzaprine HCl 10 Mg Tablet, 10 MG PO Q8H PRN for SPASMS Prescribed by: MARLY GUTIERREZ on 01/12/20 6468 Diltiazem HCl 180 Mg Tab.er.24h, 180 MG PO DAILY, (Reported) Ferrous Sulfate 325 Mg Tablet, 325 MG PO DAILY, (Reported) Furosemide 20 Mg Tablet, 20 MG PO DAILY, (Reported) Gabapentin 100 Mg Capsule, 100 MG PO BID, (Reported) Isosorbide Mononitrate 60 Mg Tab, 60 MG PO DAILY, (Reported) Lisinopril 20 Mg Tablet, 20 MG PO DAILY, (Reported) Ondansetron 4 Mg Tab.rapdis, 4 MG PO Q6H PRN for NAUSEA/VOMITING-1ST LINE, (Reported) Oxycodone HCl/Acetaminophen 1 Each Tablet, 1 TAB PO Q4H PRN for PAIN-MODERATE (5-7) Prescribed by: MARLY GUTIERREZ on 01/12/20 5446 Prednisone 10 Mg Tab.ds.pk, 10 MG PO DAILY Take 6 tabs(60mg)daily,decrease by 1 tab(10MG)daily. Prescribed by: SHILPA FREIRE on 12/31/19 1407 Patient Home Medication List Home Medication List Reviewed: Yes Review of Systems Review of Systems Constitutional: no symptoms reported Eyes: See HPI Ears, Nose, Mouth, Throat: no symptoms reported Respiratory: no symptoms reported Cardiovascular: no symptoms reported Gastrointestinal: see HPI Genitourinary: no symptoms reported : No Musculoskeletal: no symptoms reported Skin: no symptoms reported Psychiatric/Neurological: See HPI Past Ptwylbb-Ohchpw-Xyigwk Hx Past Med/Social Hx: Reviewed Nursing Past Med/Soc Hx Patient Social History Alcohol Use: Denies Use Recreational Drug Use: No Smoking Status: Never a Smoker 2nd Hand Smoke Exposure: No Recent Foreign Travel: No Contact w/Someone Who Travel: No Recent Infectious Disease Expo: No Recent Hopitalizations: No Immunizations Up To Date Tetanus Booster (TDap): Unknown PED Vaccines UTD: Yes Date of Pneumonia Vaccine: Feb 17, 2017 Seasonal Allergies Seasonal Allergies: No Past Medical History Surgeries: Yes Coronary Stent, Defibrillator, Pacemaker Respiratory: No Cardiac: Yes (pacemaker/defib implant) Atrial Fibrillation, Coronary Artery Disease, Hypertension, Irregular Heartbeat Neurological: No Reproductive Disorders: No Sexually Transmitted Disease: No Genitourinary: No Gastrointestinal: Yes Gastroesophageal Reflux, Gall Bladder Disease Musculoskeletal: Yes Degenerate Disk Disease, Chronic Back Pain Endocrine: Yes (DIET CONTROLLED; OBESITY) Diabetes, Non-Insulin dep HEENT: No Cancer: No Psychosocial: No Integumentary: No Blood Disorders: No Family Medical History Heart Disease Physical Exam Vital Signs Vital Signs - First Documented 01/12/20 01/13/20 17:24 00:08 Temp 36.6 Pulse 68 Resp 15 B/P (MAP) 137/67 (90) Pulse Ox 98 O2 Delivery Room Air Capillary Refill : Less Than 3 Seconds Height, Weight, BMI Height: 5'5.00" Weight: 247lbs. 0.0oz. 112.159613fl; 38.00 BMI Method:Estimated General Appearance: WD/WN, mild distress HEENT: PERRL/EOMI, normal ENT inspection, TMs normal, pharynx normal Neck: normal inspection Cardiovascular: regular rate, rhythm, no edema, no murmur Respiratory: lungs clear, normal breath sounds, no respiratory distress Gastrointestinal: non tender, soft Extremities: normal inspection, no pedal edema Psychiatric: alert, oriented x 3 Crainal Nerves: normal hearing, normal speech, PERRL (Dificult to see because pt keeps her eyes squinted and has dark irises) Coordination/Gait: normal finger to nose (normal heal to [place]) Motor/Sensory: no motor deficit, no sensory deficit Skin: normal color, warm/dry Progress/Results/Core Measures Results/Orders Lab Results Laboratory Tests Test 01/12/20 20:10 Range/Units White Blood Count 6.3 4.3-11.0 10^3/uL Red Blood Count 3.70 L 4.35-5.85 10^6/uL Hemoglobin 11.2 L 11.5-16.0 G/DL Hematocrit 36 35-52 % Mean Corpuscular Volume 97 80-99 FL Mean Corpuscular Hemoglobin 30 25-34 PG Mean Corpuscular Hemoglobin Concent 31 L 32-36 G/DL Red Cell Distribution Width 15.6 H 10.0-14.5 % Platelet Count 204 130-400 10^3/uL Mean Platelet Volume 9.0 7.4-10.4 FL Neutrophils (%) (Auto) 56 42-75 % Lymphocytes (%) (Auto) 31 12-44 % Monocytes (%) (Auto) 9 0-12 % Eosinophils (%) (Auto) 4 0-10 % Basophils (%) (Auto) 0 0-10 % Neutrophils # (Auto) 3.5 1.8-7.8 X 10^3 Lymphocytes # (Auto) 2.0 1.0-4.0 X 10^3 Monocytes # (Auto) 0.5 0.0-1.0 X 10^3 Eosinophils # (Auto) 0.3 0.0-0.3 10^3/uL Basophils # (Auto) 0.0 0.0-0.1 10^3/uL Sodium Level 142 135-145 MMOL/L Potassium Level 3.8 3.6-5.0 MMOL/L Chloride Level 106 98-107 MMOL/L Carbon Dioxide Level 25 21-32 MMOL/L Anion Gap 11 5-14 MMOL/L Blood Urea Nitrogen 18 7-18 MG/DL Creatinine 1.06 0.60-1.30 MG/DL Estimat Glomerular Filtration Rate > 60 BUN/Creatinine Ratio 17 Glucose Level 101 70-105 MG/DL Calcium Level 9.2 8.5-10.1 MG/DL Corrected Calcium 9.2 8.5-10.1 MG/DL Magnesium Level 2.3 1.6-2.4 MG/DL Total Bilirubin 0.9 0.1-1.0 MG/DL Aspartate Amino Transf (AST/SGOT) 13 5-34 U/L Alanine Aminotransferase (ALT/SGPT) 21 0-55 U/L Alkaline Phosphatase 86 40-136 U/L Total Protein 7.0 6.4-8.2 GM/DL Albumin 4.0 3.2-4.5 GM/DL My Orders Orders - MARLY DONOVAN MD Cbc With Automated Diff (01/12/20 18:57) Comprehensive Metabolic Panel (01/12/20 18:57) Magnesium (01/12/20 18:57) Ct Head Wo (01/12/20 18:57) Ed Iv/Invasive Line Start (01/12/20 18:57) Ns Iv 1000 Ml (Sodium Chloride 0.9%) (01/12/20 18:57) Fentanyl Injection (Sublimaze Injection (01/12/20 19:00) Ondansetron Injection (Zofran Injectio (01/12/20 19:00) Orphenadrine Inj (Ed Only) (Norflex Inje (01/12/20 21:00) Ketorolac Injection (Toradol Injection) (01/12/20 22:00) Magnesium 1 Gm/100 Ml Ivpb (Magnesium Moses (01/12/20 22:00) Methylprednisolone Sod Succ (Solu-Medrol (01/12/20 22:00) Ekg Tracing (01/12/20 23:14) Medications Given in ED Vital Signs/I&O 01/12/20 01/13/20 17:24 00:08 Temp 36.6 Pulse 68 61 Resp 15 18 B/P (MAP) 137/67 (90) 158/79 Pulse Ox 98 99 O2 Delivery Room Air Room Air Blood Pressure Mean: 90 Progress Progress Note #1: Time: 21:[address] of the head was obtained due to severe headache in the context of Eliquis use. CT was unremarkable. Labs were also unremarkable. Patient was treated with fentanyl. Fentanyl did not improve her pain. Patient was reexamined and found to have a tense tender left posterior neck. Norflex was then administered. 45 minutes after Norflex was given patient still rates her pain 10/10. She has not had Eliquis since early in the morning so we will give Toradol. I will also try Solu-Medrol and magnesium to help her with her headache. Progress Note #2: Progress Note Patient did eventually improve with these measures. Pain improved well enough that she was able to return home and rest. I did ambulate the patient in the room prior to discharge. She was able to ambulate to and from the door independently and safely. Diagnostic Imaging Diagonstic Imaging: CT Plain Films/CT/US/NM/MRI: head Comments CT head viewed by me and report reviewed. See report below: NAME: GAGANDEEP KIM [facility] REC#: [id number] PT STATUS: REG ER : 1950 PHYSICIAN: MARLY DONOVAN MD ADMIT DATE: 01/12/20/ER Draft Date of Exam:01/12/20 CT HEAD WO PROCEDURE: CT head without contrast. TECHNIQUE: Multiple contiguous axial images were obtained through the brain without the use of intravenous contrast. Auto Exposure Controls were utilized during the CT exam to meet ALARA standards for radiation dose reduction. INDICATION: Head pain. COMPARISON: No relevant comparison. FINDINGS: There is no intracranial hemorrhage. There is mild generalized cerebral cortical atrophy and atrophic changes greater involving the left more so than right cerebellar hemispheres. There is intracranial atherosclerotic vascular calcifications. There is no focal or generalized edema. No mass or mass effect. No evidence for elevated intracerebral pressures. The orbits, sinuses and calvarium appear nonacute. IMPRESSION: 1. Chronic atrophy. No hemorrhage, edema or acute appearing abnormality. 2. Clear sinuses. Dictated on workstation # [id number] Dict: 01/12/201952 Trans: 01/12/201958 [facility] [id number] Interpreted by: CARRIE DOVE Departure Impression Primary Impression: Acute headache Qualified Codes: R51 - Headache Disposition: 01 HOME, SELF-CARE Condition: Improved Departure-Patient Inst. Decision time for Depature: 23:56 Referrals: GIO BRADY MD (PCP/Family) Primary Care Physician Patient Instructions: Headache, Adult Add. Discharge Instructions: Return home and rest in a quiet, calm, dark environment for the rest of the evening. You may take your morning dose of Eliquis when you return home. If your headache rebounds this morning, you may use the Percocet prescribed. For muscle tension in your neck you may apply a warm moist compress or a heating pad on low. You may also use the muscle relaxers as prescribed. Monitor your blood sugars closely for the next couple of days as you received steroids in the emergency room that could elevate your blood sugars. Return to the ER or call your doctor if you have any further questions or concerns. All discharge instructions reviewed with patient and/or family. Voiced understanding. Scripts Cyclobenzaprine HCl (Cyclobenzaprine HCl) 10 Mg Tablet 10 MG PO Q8H PRN for SPASMS, #10 TAB 0 Refills Prov: MARLY DONOVAN MD 01/12/20 Oxycodone HCl/Acetaminophen (Percocet 5-325 mg Tablet) 1 Each Tablet 1 TAB PO Q4H PRN for PAIN-MODERATE (5-7) MDD 6 TABS, #5 TAB Prov: MARLY DONOVAN MD 01/12/20 Copy Copies To 1: GIO BRADY MD, JOSHUA T MD Jan 12, 2020 19:13
--- NOTE | 2020-01-12 20:00 | Diagnostic Imaging Report ---
PROCEDURE: CT head without contrast. TECHNIQUE: Multiple contiguous axial images were obtained through the brain without the use of intravenous contrast. Auto Exposure Controls were utilized during the CT exam to meet ALARA standards for radiation dose reduction. INDICATION: Head pain. COMPARISON: No relevant comparison. FINDINGS: There is no intracranial hemorrhage. There is mild generalized cerebral cortical atrophy and atrophic changes greater involving the left more so than right cerebellar hemispheres. There is intracranial atherosclerotic vascular calcifications. There is no focal or generalized edema. No mass or mass effect. No evidence for elevated intracerebral pressures. The orbits, sinuses and calvarium appear nonacute. IMPRESSION: 1. Chronic atrophy. No hemorrhage, edema or acute appearing abnormality. 2. Clear sinuses. Dictated by: Dictated on workstation # [id number]
[2020-01-12 20:18] LABS: BASOPHILS % (AUTO) 0 % (0-10); EOSINOPHILS # (AUTO) 0.3 10^3/uL (0.0-0.3); EOSINOPHILS % (AUTO) 4 % (0-10); HEMATOCRIT 36 % (35-52); HEMOGLOBIN 11.2 G/DL (11.5-16.0); LYMPHOCYTES % (AUTO) 31 % (12-44); MEAN CORPUSCULAR HEMOGLOBIN 30 PG (25-34); MEAN CORPUSCULAR HGB CONC 31 G/DL (32-36); MEAN CORPUSCULAR VOLUME 97 FL (80-99); MONOCYTES # (AUTO) 0.5 X 10^3 (0.0-1.0); MONOCYTES % (AUTO) 9 % (0-12); NEUTROPHILS # (AUTO) 3.5 X 10^3 (1.8-7.8); NEUTROPHILS % (AUTO) 56 % (42-75); PLATELET COUNT 204 10^3/uL (130-400); RED CELL DISTRIBUTION WIDTH 15.6 % (10.0-14.5); WHITE BLOOD COUNT 6.3 10^3/uL (4.3-11.0)
[2020-01-12 20:34] LABS: ALANINE AMINOTRANSFERASE 21 U/L (0-55); ALKALINE PHOSPHATASE 86 U/L (40-136); BILIRUBIN,TOTAL 0.9 MG/DL (0.1-1.0); BUN/CREATININE RATIO 17; CALCIUM 9.2 MG/DL (8.5-10.1); CARBON DIOXIDE 25 MMOL/L (21-32); CHLORIDE 106 MMOL/L (98-107); CREATININE SERUM 1.06 MG/DL (0.60-1.30); GFR ESTIMATED > 60; GLUCOSE 101 MG/DL (70-105); MAGNESIUM 2.3 MG/DL (1.6-2.4); POTASSIUM 3.8 MMOL/L (3.6-5.0); SODIUM 142 MMOL/L (135-145)
[2020-01-12] MEDS ORDERED: ORPHENADRINE 60 MG/2 ML (NORFLEX) AMP (ED ONLY) IV ONE (21:00)
[2020-01-12] MEDS ORDERED: methylPREDNISolone 125 MG (Solu-MEDROL) VIAL IVP ONE (22:00)
[2020-01-12] MEDS ORDERED: MAGNESIUM 1 GM/100 ML IVPB 100 ML IV ONE (22:00)
[2020-01-12] MEDS ORDERED: KETOROLAC 30 MG/ML VIAL IVP ONE (22:00)
[2020-01-12] MEDS ORDERED: CYCL10TA9 PO (23:59)
[2020-01-12] MEDS ORDERED: OXYC1TAB87 PO (23:59)
[2020-01-13 00:08] VITALS: BP 158/79
== END 2020-01-13 00:08 | disposition home or self-care (01) ==
LOC: EDUNIT# 17:18 → ER 17:19
DX: R51 Headache (principal); E66.9 Obesity, unspecified; I10 Essential (primary) hypertension; I48.91 Unspecified atrial fibrillation; I25.10 Atherosclerotic heart disease of native coronary artery without angina pectoris; Z68.37 Body mass index [BMI] 37.0-37.9, adult; Z71.3 Dietary counseling and surveillance; Z82.49 Family history of ischemic heart disease and other diseases of the circulatory system; Z95.810 Presence of automatic (implantable) cardiac defibrillator; Z95.5 Presence of coronary angioplasty implant and graft; Z88.5 Allergy status to narcotic agent; Z88.6 Allergy status to analgesic agent; Z79.01 Long term (current) use of anticoagulants; Z79.52 Long term (current) use of systemic steroids
CPT/HCPCS: 36415; 70450; 80053; 83735; 85025; 93005

== ENCOUNTER 2020-05-20 13:07 | Emergency (ER) | payer MEDICARE ==
[~2020-05-20] VITALS: Ht 170 cm; Wt 112.7 kg
[~2020-05-20 13:07] MED LIST changes: +CYCL10TA9 PO; +OXYC1TAB87 PO
[2020-05-20] MEDS ORDERED: KETOROLAC 60 MG/2 ML VIAL IM ONE (15:30)
[2020-05-20] MEDS ORDERED: ORPHENADRINE 60 MG/2 ML (NORFLEX) AMP (ED ONLY) IM ONE (15:30)
--- NOTE | 2020-05-20 15:43 | Diagnostic Imaging Report ---
INDICATION: Low back pain. COMPARISON: Lumbar spine radiographs of 01/30/2018. TECHNIQUE: Three views of the lumbar spine were obtained. FINDINGS: There is 7 mm of anterolisthesis of L4 on L5, unchanged from the prior examination. No new spondylolisthesis. Severe facet osteoarthritis from L3-L4 through L5-S1 is also unchanged. No compression deformity within the vertebral bodies. Mild intervertebral disc space height narrowing at L4-L5 and L5-S1. Vascular calcifications are unchanged. Cholecystectomy clips are noted. IMPRESSION: 1. Grade 1 anterolisthesis of L4 on L5 is unchanged and due to severe facet osteoarthritis. 2. Multilevel facet osteoarthritis and degenerative disc disease remains unchanged. Dictated by: Dictated on workstation # [id number]
--- NOTE | 2020-05-20 15:45 | Diagnostic Imaging Report ---
INDICATION: Bilateral hip pain. COMPARISON: None available. TECHNIQUE: AP pelvis with frog-leg lateral views of each hip. FINDINGS: Patchy increased densities in the bilateral femoral heads may be due to summation artifact with degenerative changes in the acetabula. However, underlying osteonecrosis of the femoral heads could be present. Both femoral heads remain spherical without subchondral collapse. No fracture. Mild degenerative arthritis of the left SI joint. Right SI joint is normal in appearance. Scattered pelvic phleboliths. IMPRESSION: 1. Question of avascular necrosis of the femoral heads without subchondral collapse. Consider CT or MRI of the pelvis without contrast for further characterization. 2. Moderate osteoarthritis of both hips. Dictated by: Dictated on workstation # [id number]
--- NOTE | 2020-05-20 16:17 | NUR ---
TO CT PER W/C
--- NOTE | 2020-05-20 16:43 | Diagnostic Imaging Report ---
PROCEDURE: CT pelvis without contrast. TECHNIQUE: Multiple contiguous axial images were obtained through the pelvis without the use of intravenous contrast. Sagittal and coronal reformations were performed. Auto Exposure Controls were utilized during the CT exam to meet ALARA standards for radiation dose reduction. INDICATION: Bilateral hip pain. Possible avascular necrosis on radiographs. COMPARISON: Hip radiographs from earlier the same day. FINDINGS: Bones: No osteonecrosis of femoral heads. Ttyrmlfg-mq-xnraou osteoarthritic changes are present throughout the hips. There are prominent marginal osteophytes in the acetabulum. On the right, there is fragmentation of the osteophytes and/or os acetabulum present. No fracture in the proximal femurs or pelvis. No sacral insufficiency fracture. Severe facet osteoarthritis and moderate degenerative disc disease in the lower lumbar spine. Soft tissues: The musculature about the hips is normal in bulk and attenuation. Probable small right hip effusion is reactive in nature due to advanced degenerative changes. No fluid collection within the pelvis. IMPRESSION: 1. No osteonecrosis of femoral heads. The radiographic abnormality is due to summation shadow with advanced degenerative changes of the hips. 2. No acute abnormality in the pelvis. Dictated by: Dictated on workstation # [id number]
[2020-05-20] MEDS ORDERED: predniSONE 20 MG TAB PO ONE (17:15)
[2020-05-20] MEDS ORDERED: PRD20T PO (17:19)
--- NOTE | 2020-05-20 17:19 | ED Hip Pain/Injury ---
General Chief Complaint: Hip/Pelvic Problems Stated Complaint: BACK AND HIP PAIN Nursing Triage Note: PT STATES BILAT HIP PAIN FOR ABOUT 1 MONTH, STATES SHE HAS BEEN SEEN AT ORTHO 4 [facility] AND WAS TOLD TO GET INJECTIONS FOR PAIN BUT HAS NOT BEEN ABLE TO HAVE THEM SCHEDULED YET. STATES PAIN IS WORSENING TODAY. HAS BEEN TAKING TYLENOL, OXYCODONE, AND A MUSCLE RELAXOR. Source: patient Exam Limitations: no limitations History of Present Illness Date Seen by Provider: May 20, 2020 Time Seen by Provider: 13:30 Initial Comments This is a well appearing 70 yo female who presents to the ER with c/o of bilateral hip pain x 1 month. States she has tried to schedule with [facility] for injection, but she has been unable to schedule at this time. Reports pain is worsening even with use of Tylenol and home Percocet and Tizanidine. Currently rates 10/10, dull ache in her low back and bilateral hips. Denies fall or trauma. Denies fevers, chills, numbness/tingling in groin, or loss of bowel/bladder function. Allergies and Home Medications Allergies Coded Allergies: codeine (Verified Allergy, Unknown, 09/15/17) meperidine (Verified Allergy, Unknown, 09/15/17) morphine (Verified Allergy, Unknown, 09/15/17) Home Medications Albuterol Sulfate 18 Gm Hfa.aer.ad, 2 PUFF PO Q4H PRN for SHORTNESS OF BREATH, (Reported) Amiodarone HCl 100 Mg Tablet, 100 MG PO DAILY, (Reported) Apixaban 5 Mg Tablet, 5 MG PO BID, (Reported) Atorvastatin Calcium 20 Mg Tablet, 20 MG PO HS, (Reported) Carvedilol 25 Mg Tablet, 25 MG PO BID, (Reported) Cephalexin 250 Mg Capsule, 500 MG PO BID Prescribed by: SHILPA FREIRE on 12/31/19 1407 Cholecalciferol (Vitamin D3) 25 Mcg Capsule, 25 MCG PO DAILY, (Reported) Cyclobenzaprine HCl 10 Mg Tablet, 10 MG PO Q8H PRN for SPASMS Prescribed by: MARLY GUTIERREZ on 01/12/20 1951 Diltiazem HCl 180 Mg Tab.er.24h, 180 MG PO DAILY, (Reported) Ferrous Sulfate 325 Mg Tablet, 325 MG PO DAILY, (Reported) Furosemide 20 Mg Tablet, 20 MG PO DAILY, (Reported) Gabapentin 100 Mg Capsule, 100 MG PO BID, (Reported) Isosorbide Mononitrate 60 Mg Tab, 60 MG PO DAILY, (Reported) Lisinopril 20 Mg Tablet, 20 MG PO DAILY, (Reported) Ondansetron 4 Mg Tab.rapdis, 4 MG PO Q6H PRN for NAUSEA/VOMITING-1ST LINE, (Reported) Oxycodone HCl/Acetaminophen 1 Each Tablet, 1 TAB PO Q4H PRN for PAIN-MODERATE (5-7) Prescribed by: MARLY GUTIERREZ on 01/12/20 4351 Prednisone 10 Mg Tab.ds.pk, 10 MG PO DAILY Take 6 tabs(60mg)daily,decrease by 1 tab(10MG)daily. Prescribed by: SHILPA FREIRE on 12/31/19 1407 Prednisone 20 Mg Tab, 40 MG PO DAILY Prescribed by: MASOOD KING on 05/20/20 1719 Patient Home Medication List Home Medication List Reviewed: Yes Review of Systems Constitutional: no symptoms reported EENTM: no symptoms reported Respiratory: no symptoms reported Cardiovascular: no symptoms reported Gastrointestinal: no symptoms reported Genitourinary: no symptoms reported Musculoskeletal: see HPI Skin: no symptoms reported Psychiatric/Neurological: No Symptoms Reported Past Yazzkmu-Ebjnlb-Mhtgyl Hx Patient Social History Alcohol Use: Denies Use Recreational Drug Use: No 2nd Hand Smoke Exposure: No Recent Foreign Travel: No Contact w/Someone Who Travel: No Recent Infectious Disease Expo: No Recent Hopitalizations: No Physical Abuse: No Sexual Abuse: No Mistreated: No Fear: No Immunizations Up To Date Tetanus Booster (TDap): Unknown PED Vaccines UTD: Yes Date of Pneumonia Vaccine: Feb 17, 2017 Seasonal Allergies Seasonal Allergies: No Past Medical History Surgeries: Yes Coronary Stent, Defibrillator, Pacemaker Respiratory: No Cardiac: Yes (pacemaker/defib implant) Atrial Fibrillation, Coronary Artery Disease, Hypertension, Irregular Heartbeat Neurological: No Reproductive Disorders: No Sexually Transmitted Disease: No Genitourinary: No Gastrointestinal: Yes Gastroesophageal Reflux, Gall Bladder Disease Musculoskeletal: Yes Degenerate Disk Disease, Chronic Back Pain Endocrine: Yes (DIET CONTROLLED; OBESITY) Diabetes, Non-Insulin dep HEENT: No Cancer: No Psychosocial: No Integumentary: No Blood Disorders: No Family Medical History Heart Disease Physical Exam Vital Signs Vital Signs - First Documented 05/20/20 05/20/20 14:00 17:23 Temp 35.5 Pulse 68 Resp 20 B/P (MAP) 186/101 (129) Pulse Ox 98 O2 Delivery Room Air Capillary Refill : Less Than 3 Seconds Height, Weight, BMI Height: 5'5.00" Weight: 247lbs. 0.0oz. 112.968954uw; 38.00 BMI Method:Estimated General Appearance: No Apparent Distress, WD/WN HEENT: PERRL/EOMI, Moist Mucous Membranes Neck: Full Range of Motion, Normal Inspection, Non Tender, Supple Cardiovascular: No Edema, No Murmur, Normal Peripheral Pulses Respiratory: Lungs Clear, Normal Breath Sounds, No Accessory Muscle Use Gastrointestinal: Normal Bowel Sounds, Non Tender, Soft Back: Normal Inspection, Vertebral Tenderness (of lumbar region with palpation ) Extremity: Normal Capillary Refill, Normal Inspection, Normal Range of Motion, No Pedal Edema Neurologic/Psychiatric: Alert, Oriented x3, No Motor/Sensory Deficits, Normal Mood/Affect Skin: Normal Color, Warm/Dry Progress/Results/Core Measures Results/Orders My Orders Orders - MASOOD KING APRN Lumbar Spine - 2-3 Views (05/20/20 14:56) Pelvis/Rony Hips 3-4 Views (05/20/20 14:56) Orphenadrine Inj (Ed Only) (Norflex Inje (05/20/20 15:30) Ketorolac Injection (Toradol Injection) (05/20/20 15:30) Ct Pelvis Wo (05/20/20 16:02) Prednisone Tablet (Deltasone Tablet) (05/20/20 17:15) Medications Given in ED Vital Signs/I&O 05/20/20 05/20/20 14:00 17:23 Temp 35.5 Pulse 68 60 Resp 20 18 B/P (MAP) 186/101 (129) 160/92 Pulse Ox 98 O2 Delivery Room Air Blood Pressure Mean: 129 Progress Progress Note : Progress Note Pt examined. Orders placed for Lumbar and Pelvis/hip x-rays. Ordered Toradol 30mg IM and Norflex 60mg IM at this time. Radiographs reviewed. Questionable bilat. femoral head necrosis, non contrast CT pelvis ordered. CT pelvis shows no actue fx's or avascular necrosis. Min. improvement with Toradol and Norflex. Discussed using oral steroids until she can follow up with Ortho 4 states, she is agreeable to try. Given first dose of Prednisone 40mg PO in ED. Instructed to monitor BG closely as this medication can increase BG levels, she verbalized understanding. Reviewed discharge POC and she is agreeable with plan. Diagnostic Imaging Diagonstic Imaging: Xray Comments NAME: GAGANDEEP [facility] REC#: [id number] PT STATUS: REG ER : 1950 PHYSICIAN: MASOOD KING [employer] ADMIT DATE: 05/20/20/ER Signed Date of Exam:05/20/20 LUMBAR SPINE - 2-3 VIEWS INDICATION: Low back pain. COMPARISON: Lumbar spine radiographs of 01/30/2018. TECHNIQUE: Three views of the lumbar spine were obtained. FINDINGS: There is 7 mm of anterolisthesis of L4 on L5, unchanged from the prior examination. No new spondylolisthesis. Severe facet osteoarthritis from L3-L4 through L5-S1 is also unchanged. No compression deformity within the vertebral bodies. Mild intervertebral disc space height narrowing at L4-L5 and L5-S1. Vascular calcifications are unchanged. Cholecystectomy clips are noted. IMPRESSION: 1. Grade 1 anterolisthesis of L4 on L5 is unchanged and due to severe facet osteoarthritis. 2. Multilevel facet osteoarthritis and degenerative disc disease remains unchanged. Dictated by: Dictated on workstation # [id number] Dict: 05/20/20 1539 Trans: 05/20/201706 [id number] Interpreted by: MARYANN GROVE MD Electronically signed by: MARYANN GROVE MD 05/20/207 Diagonstic Imaging: Xray Plain Films/CT/US/NM/MRI: pelvis Comments NAME: GAGANDEEP [facility] REC#: [id number] PT STATUS: REG ER : 1950 PHYSICIAN: MASOOD KING APRN ADMIT DATE: 05/20/20/ER Signed Date of Exam:05/20/20 PELVIS/RONY HIPS 3-4 VIEWS INDICATION: Bilateral hip pain. COMPARISON: None available. TECHNIQUE: AP pelvis with frog-leg lateral views of each hip. FINDINGS: Patchy increased densities in the bilateral femoral heads may be due to summation artifact with degenerative changes in the acetabula. However, underlying osteonecrosis of the femoral heads could be present. Both femoral heads remain spherical without subchondral collapse. No fracture. Mild degenerative arthritis of the left SI joint. Right SI joint is normal in appearance. Scattered pelvic phleboliths. IMPRESSION: 1. Question of avascular necrosis of the femoral heads without subchondral collapse. Consider CT or MRI of the pelvis without contrast for further characterization. 2. Moderate osteoarthritis of both hips. Dictated by: Dictated on workstation # [id number] Dict: 05/20/20 1541 Trans: 05/20/201706 [facility] [id number] Interpreted by: MARYANN GROVE MD Electronically signed by: MARYANN GROVE MD 05/20/201706 Diagonstic Imaging: CT Plain Films/CT/US/NM/MRI: pelvis Comments NAME: GAGANDEEP [facility] REC#: [id number] PT STATUS: REG ER : 1950 PHYSICIAN: MASOOD KING APRN ADMIT DATE: 05/20/20/ER Signed Date of Exam:05/20/20 CT PELVIS WO PROCEDURE: CT pelvis without contrast. TECHNIQUE: Multiple contiguous axial images were obtained through the pelvis without the use of intravenous contrast. Sagittal and coronal reformations were performed. Auto Exposure Controls were utilized during the CT exam to meet ALARA standards for radiation dose reduction. INDICATION: Bilateral hip pain. Possible avascular necrosis on radiographs. COMPARISON: Hip radiographs from earlier the same day. FINDINGS: Bones: No osteonecrosis of femoral heads. Hxbunani-sv-fpspot osteoarthritic changes are present throughout the hips. There are prominent marginal osteophytes in the acetabulum. On the right, there is fragmentation of the osteophytes and/or os acetabulum present. No fracture in the proximal femurs or pelvis. No sacral insufficiency fracture. Severe facet osteoarthritis and moderate degenerative disc disease in the lower lumbar spine. Soft tissues: The musculature about the hips is normal in bulk and attenuation. Probable small right hip effusion is reactive in nature due to advanced degenerative changes. No fluid collection within the pelvis. IMPRESSION: 1. No osteonecrosis of femoral heads. The radiographic abnormality is due to summation shadow with advanced degenerative changes of the hips. 2. No acute abnormality in the pelvis. Dictated by: Dictated on workstation # [id number] Dict: 05/20/20 1639 Trans: 05/20/201706 [facility] [id number] Interpreted by: MARYANN GROVE MD Electronically signed by: MARYANN GROVE MD 05/20/201706 Departure Impression Primary Impression: Osteoarthritis Additional Impression: Hip pain Disposition: HOME, SELF-CARE Condition: Stable/Unchanged Departure-Patient Inst. Decision time for Depature: 17:16 Referrals: GIO BRADY MD (PCP/Family) Primary Care Physician Patient Instructions: Hip Pain, Osteoarthritis Add. Discharge Instructions: Plan: 1. Discharge home. Follow up with Ortho 4 states. 2. Rest, ice 20 minutes at a time every couple of hours for pain. 3. May take Tylenol or Ibuprofen as needed for pain per package directions. Do not take more than directed. 4. Take Prednisone as directed with food. Monitor your blood glucose as this will cause your blood sugar to rise. 5. Follow up with your primary care provider if symptoms persist. All discharge instructions reviewed with patient and/or family. Voiced understanding. Scripts Prednisone (Prednisone) 20 Mg Tab 40 MG PO DAILY for 4 Days, #8 TAB 0 Refills Prov: MASOOD KING [employer] 05/20/20 MASOOD KING [employer] May 20, 2020 17:19
[2020-05-20 17:23] VITALS: BP 160/92
== END 2020-05-20 17:23 | disposition home or self-care (01) ==
LOC: EDUNIT# 13:07 → ER 13:11
DX: M16.0 Bilateral primary osteoarthritis of hip (principal); I10 Essential (primary) hypertension; I48.91 Unspecified atrial fibrillation; I25.10 Atherosclerotic heart disease of native coronary artery without angina pectoris; G89.29 Other chronic pain; Z95.810 Presence of automatic (implantable) cardiac defibrillator; Z95.5 Presence of coronary angioplasty implant and graft; Z79.52 Long term (current) use of systemic steroids; Z79.891 Long term (current) use of opiate analgesic; Z79.01 Long term (current) use of anticoagulants
CPT/HCPCS: 72100; 72192; 73522

== ENCOUNTER 2020-06-03 15:38 | Emergency (ER) | payer MEDICARE ==
[~2020-06-03] VITALS: Ht 67 cm; Wt 110.0 kg
[~2020-06-03 15:38] MED LIST changes: +PRD20T PO
--- NOTE | 2020-06-03 16:35 | ED Back Pain ---
General Chief Complaint: Back Problems Stated Complaint: BACK AND RIGHT LEG PAIN Nursing Triage Note: she went to get out of bed on mariana consuelo and had severe pain and hasnt been out of pain since. She went to the surgery center in [place] but could not get in position to do the procedure. Pt states she has been here to the er for shots and they only help for a day. c/o right lower back pain and right leg pain. Nursing Sepsis Screen: No Definite Risk (MARTHA BELLA MED STUDENT) History of Present Illness Date Seen by Provider: Jun 03, 2020 Time Seen by Provider: 16:10 Initial Comments This is a 70 year old female who presents to the Emergency Department via ambulation for a chief complaint of back and leg pain that began on Consuelo. She states it's a 10/10 burning pain in her back that goes down the back and side of her right leg to her right foot. She was supposed to go to [place] for an injection but her inability to get in the right position prevented it. She went to the ER and had shots prior that helped for a couple of days. She tried to schedule an appointment with the orthopedics but they were full until June 16. Tylenol and muscle relaxers haven't helped. Nothing makes it better. She was injured by a table in 1988 and has this pain before 4-5 times. Medications: eliquis 5mg x2, carvediol 25 mg x2, gabapentin 100 mg x2, pacerone 100 mg x1, atorvastatin 20 mg x1, iron 65 mg x1, lisinopril 20 mg x1, furosemide 20 mg x1, isosorb mono 80 mg x1, deltiazem ER 180mg x1. PMHx: hypertension, DM, heart defibrillator (MARTHA BELLA MED STUDENT) Allergies and Home Medications Allergies Coded Allergies: codeine (Verified Allergy, Unknown, 09/15/17) meperidine (Verified Allergy, Unknown, 09/15/17) morphine (Verified Allergy, Unknown, 09/15/17) Home Medications Albuterol Sulfate 18 Gm Hfa.aer.ad, 2 PUFF PO Q4H PRN for SHORTNESS OF BREATH, (Reported) Amiodarone HCl 100 Mg Tablet, 100 MG PO DAILY, (Reported) Apixaban 5 Mg Tablet, 5 MG PO BID, (Reported) Atorvastatin Calcium 20 Mg Tablet, 20 MG PO HS, (Reported) Carvedilol 25 Mg Tablet, 25 MG PO BID, (Reported) Cephalexin 250 Mg Capsule, 500 MG PO BID Prescribed by: SHILPA FREIRE on 12/31/191406 Cholecalciferol (Vitamin D3) 25 Mcg Capsule, 25 MCG PO DAILY, (Reported) Cyclobenzaprine HCl 10 Mg Tablet, 10 MG PO Q8H PRN for SPASMS Prescribed by: MARLY GUTIERREZ on 01/12/202358 Diltiazem HCl 180 Mg Tab.er.24h, 180 MG PO DAILY, (Reported) Docusate Sodium 100 Mg Capsule, 100 MG PO DAILY Prescribed by: FOZIA HAYS on 06/03/201805 Ferrous Sulfate 325 Mg Tablet, 325 MG PO DAILY, (Reported) Furosemide 20 Mg Tablet, 20 MG PO DAILY, (Reported) Gabapentin 100 Mg Capsule, 100 MG PO BID, (Reported) Hydrocodone/Acetaminophen 1 Each Tablet, 1 EACH PO Q4H PRN for PAIN-MODERATE (5- 7) Prescribed by: FOZIA HAYS on 06/03/201805 Isosorbide Mononitrate 60 Mg Tab, 60 MG PO DAILY, (Reported) Lisinopril 20 Mg Tablet, 20 MG PO DAILY, (Reported) Ondansetron 4 Mg Tab.rapdis, 4 MG PO Q6H PRN for NAUSEA/VOMITING-1ST LINE, (Reported) Oxycodone HCl/Acetaminophen 1 Each Tablet, 1 TAB PO Q4H PRN for PAIN-MODERATE (5-7) Prescribed by: MARLY GUTIERREZ on 01/12/202358 Prednisone 10 Mg Tab.ds.pk, 10 MG PO DAILY Take 6 tabs(60mg)daily,decrease by 1 tab(10MG)daily. Prescribed by: SHILPA FREIRE on 12/31/191406 Prednisone 20 Mg Tab, 40 MG PO DAILY Prescribed by: MASOOD KING on 05/20/20 171 Tramadol HCl 50 Mg Tablet, 50 MG PO Q6H PRN for NAUSEA/VOMITING Prescribed by: FOZIA HAYS on 06/03/20 190 Patient Home Medication List Home Medication List Reviewed: Yes (FOZIA HAYS APRN) Review of Systems Constitutional: no symptoms reported EENTM: no symptoms reported Respiratory: no symptoms reported Cardiovascular: no symptoms reported Gastrointestinal: no symptoms reported Genitourinary: no symptoms reported Musculoskeletal: back pain, other (right leg pain) Skin: no symptoms reported Psychiatric/Neurological: No Symptoms Reported (MARTHA BELLA OtherInbox CHING) Past Nbbqlxx-Wpkntn-Apxfpz Hx Patient Social History Alcohol Use: Denies Use 2nd Hand Smoke Exposure: No Recent Infectious Disease Expo: No Recent Hopitalizations: No (MARTHA BELLA OtherInbox CHING) Immunizations Up To Date Tetanus Booster (TDap): Unknown PED Vaccines UTD: Yes Date of Pneumonia Vaccine: Feb 17, 2017 (MARTHA BELLA OtherInbox CHING) Seasonal Allergies Seasonal Allergies: No (MARTHA BELLA OtherInbox CHING) Past Medical History Surgeries: Yes Coronary Stent, Defibrillator, Pacemaker Respiratory: No Cardiac: Yes (pacemaker/defib implant) Atrial Fibrillation, Coronary Artery Disease, Hypertension, Irregular Heartbeat Neurological: No Reproductive Disorders: No Sexually Transmitted Disease: No Genitourinary: No Gastrointestinal: Yes Gastroesophageal Reflux, Gall Bladder Disease Musculoskeletal: Yes Degenerate Disk Disease, Chronic Back Pain Endocrine: Yes (DIET CONTROLLED; OBESITY) Diabetes, Non-Insulin dep HEENT: No Cancer: No Psychosocial: No Integumentary: No Blood Disorders: No (MARTHA BELLA OtherInbox CHING) Family Medical History Heart Disease (MARTHA BELLA) Physical Exam Vital Signs Vital Signs - First Documented 06/03/20 15:44 Temp 36.6 Pulse 76 Resp 18 B/P (MAP) 192/102 (132) Pulse Ox 97 O2 Delivery Room Air (FOZIA HAYS APRN) Vital Signs Capillary Refill : Less Than 3 Seconds (MARTHA BELLA OtherInbox STUDENT) Height, Weight, BMI Height: 5'5.00" Weight: 247lbs. 0.0oz. [id number]; 245.00 BMI Method:Estimated General Appearance: No Apparent Distress, Mild Distress Cardiovascular: Other (murmur) Respiratory: Chest Non Tender, Lungs Clear, Normal Breath Sounds, No Accessory Muscle Use, No Respiratory Distress Back: Vertebral Tenderness Extremity: Other (pain in right leg) Neurologic/Psychiatric: Alert, Oriented x3 (MARTHA BELLA OtherInbox STUDENT) Progress/Results/Core Measures Results/Orders Lab Results Laboratory Tests Test 06/03/20 17:24 Range/Units White Blood Count 9.4 4.3-11.0 10^3/uL Red Blood Count 3.72 L 3.80-5.11 10^6/uL Hemoglobin 11.0 L 11.5-16.0 g/dL Hematocrit 36 35-52 % Mean Corpuscular Volume 96 80-99 fL Mean Corpuscular Hemoglobin 30 25-34 pg Mean Corpuscular Hemoglobin Concent 31 L 32-36 g/dL Red Cell Distribution Width 13.5 10.0-14.5 % Platelet Count 264 130-400 10^3/uL Mean Platelet Volume 9.6 9.0-12.2 fL Immature Granulocyte % (Auto) 1 % Neutrophils (%) (Auto) 69 42-75 % Lymphocytes (%) (Auto) 22 12-44 % Monocytes (%) (Auto) 6 0-12 % Eosinophils (%) (Auto) 1 0-10 % Basophils (%) (Auto) 0 0-10 % Neutrophils # (Auto) 6.5 1.8-7.8 10^3/uL Lymphocytes # (Auto) 2.1 1.0-4.0 10^3/uL Monocytes # (Auto) 0.6 0.0-1.0 10^3/uL Eosinophils # (Auto) 0.1 0.0-0.3 10^3/uL Basophils # (Auto) 0.0 0.0-0.1 10^3/uL Immature Granulocyte # (Auto) 0.1 0.0-0.1 10^3/uL Erythrocyte Sedimentation Rate 29 0-30 MM/HR Sodium Level 145 135-145 MMOL/L Potassium Level 3.6 3.6-5.0 MMOL/L Chloride Level 111 H 98-107 MMOL/L Carbon Dioxide Level 25 21-32 MMOL/L Anion Gap 9 5-14 MMOL/L Blood Urea Nitrogen 15 7-18 MG/DL Creatinine 0.92 0.60-1.30 MG/DL Estimat Glomerular Filtration Rate > 60 BUN/Creatinine Ratio 16 Glucose Level 100 70-105 MG/DL Calcium Level 9.0 8.5-10.1 MG/DL C-Reactive Protein High Sensitivity 0.20 0.00-0.50 MG/DL (FOZIA HAYS APRN) My Orders Orders - FOZIA HAYS APRN Erythrocyte Sedimentation Rate (06/03/20 16:35) Hs C Reactive Protein (06/03/20 16:35) Ct Lumbar Spine Wo (06/03/20 16:35) Ed Iv/Invasive Line Start (06/03/20 16:35) Cbc With Automated Diff (06/03/20 16:35) Basic Metabolic Panel (06/03/20 16:35) Ns Iv 500 Ml (Sodium Chloride 0.9%) (06/03/20 16:45) Ketamine Syringe (Ed Only) (Ketamine Syr (06/03/20 16:45) Fentanyl Injection (Sublimaze Injection (06/03/20 18:00) Ondansetron Injection (Zofran Injectio (06/03/20 18:00) Ketorolac Injection (Toradol Injection) (06/03/20 19:00) Lorazepam Injection (Ativan Injection) (06/03/20 19:00) Rx-Tramadol Hcl (Rx-Ultram) (06/03/20 19:01) (FOZIA HAYS APRN) Medications Given in ED Current Medications Medications Dose Ordered Sig/Maryann Route Start Time Stop Time Status Last Admin Dose Admin Fentanyl Citrate 50 mcg ONCE ONCE IVP 06/03/20 18:00 06/03/20 18:01 DC 06/03/20 18:05 50 MCG Ketamine HCl 40 mg ONCE ONCE IV 06/03/20 16:45 06/03/20 16:46 DC 06/03/20 17:44 40 MG Ketorolac Tromethamine 15 mg ONCE ONCE IVP 06/03/20 19:00 06/03/20 19:01 DC 06/03/20 19:02 15 MG Lorazepam 0.5 mg ONCE PRN IVP 06/03/20 19:00 06/03/20 19:00 0.5 MG Ondansetron HCl 8 mg ONCE ONCE IVP 06/03/20 18:00 06/03/20 18:01 DC 06/03/20 18:05 8 MG (FOZIA HAYS APRN) Vital Signs/I&O 06/03/20 06/03/20 15:44 19:24 Temp 36.6 36.0 Pulse 76 79 Resp 18 20 B/P (MAP) 192/102 (132) 134/68 Pulse Ox 97 96 O2 Delivery Room Air Room Air (FOZIA HAYS APRN) Blood Pressure Mean: 132 Departure Communication (Admissions) I have seen the patient as well, she is in quite a bit of pain in the low back that radiates down the right leg. None of the red flags like history of cancer, saddle anesthesia loss of bowel or bladder control IV drug use or fevers. Started an IV under ultrasound guidance as she has very difficult IV access. Got some blood, gave her 40 mg of ketamine in 500 mL of normal saline (FOZIA HAYS APRN) Impression Primary Impression: Lumbar radiculopathy Disposition: ADMITTED INPATIENT Condition: Stable Departure-Patient Inst. Decision time for Depature: 18:05 (FOZIA HAYS APRN) Referrals: GIO BRADY MD (PCP/Family) Primary Care Physician Patient Instructions: Radiculopathy Scripts Tramadol HCl (Ultram) 50 Mg Tablet 50 MG PO Q6H PRN for NAUSEA/VOMITING, #20 TAB Prov: FOZIA HAYS APRN 06/03/20 Docusate Sodium (Colace) 100 Mg Capsule 100 MG PO DAILY, #14 CAP Prov: FOZIA HAYS APRN 06/03/20 Hydrocodone/Acetaminophen (Hydrocodone-Acetamin 5-325 mg) 1 Each Tablet 1 EACH PO Q4H PRN for PAIN-MODERATE (5-7), #14 TAB Prov: FOZIA HAYS APRN 06/03/20 MARTHA BELLA MED STUDENT Jun 03, 2020 16:35 FOZIA HAYS APRN Jun 03, 2020 17:30
[2020-06-03] MEDS ORDERED: NS IV 500 ML 500 ML IV SCH (16:45)
[2020-06-03] MEDS ORDERED: KETAMINE/NaCl 50 MG/5 ML SYRINGE (ED ONLY) IV ONE (16:45)
--- NOTE | 2020-06-03 17:20 | Diagnostic Imaging Report ---
PROCEDURE: CT lumbar spine without contrast. TECHNIQUE: Multiple contiguous axial images were obtained through the lumbar spine without the use of intravenous contrast. Sagittal and coronal reformations were then performed. Auto Exposure Controls were utilized during the CT exam to meet ALARA standards for radiation dose reduction. INDICATION: Lower back pain going down the right leg for three weeks. COMPARISON STUDY: Plain films of the lumbar spine from 05/20/2020. FINDINGS: CT scan of the lumbar spine demonstrates no fractures. Stable anterolisthesis of L4 on L5 is present. Surrounding soft tissues appear unremarkable. Some calcifications are present in the aorta and iliac vessels. T12-L1 level demonstrates vacuum disc. There is no significant stenosis. L1-L2 level appears normal. L2-L3 level appears normal. L3-L4 level demonstrates facet arthropathy with hypertrophy of the ligamentum flavum. Disc bulge is present. There is at least moderate central stenosis. MRI can be helpful for further evaluation. L4-L5 level demonstrates mfxllcji-sz-uvhdvr facet arthropathy with hypertrophy of the ligamentum flavum. There is grade 1 anterolisthesis. Central stenosis is xbpmslbp-ag-mkaoow. There is mild bilateral foraminal stenosis. L5-S1 level demonstrates zrqm-jj-rtlnswyk facet arthropathy. Osteophytes cause narrowing of the left neural foramina. IMPRESSION: Multilevel degenerative changes are present. There are no fractures. Dictated by: Dictated on workstation # [id number]
[2020-06-03 17:35] LABS: BASOPHILS % (AUTO) 0 % (0-10); EOSINOPHILS # (AUTO) 0.1 10^3/uL (0.0-0.3); EOSINOPHILS % (AUTO) 1 % (0-10); HEMATOCRIT 36 % (35-52); LYMPHOCYTES # (AUTO) 2.1 10^3/uL (1.0-4.0); LYMPHOCYTES % (AUTO) 22 % (12-44); MEAN CORPUSCULAR HEMOGLOBIN 30 pg (25-34); MEAN CORPUSCULAR HGB CONC 31 g/dL (32-36); MEAN CORPUSCULAR VOLUME 96 fL (80-99); MEAN PLATELET VOLUME 9.6 fL (9.0-12.2); MONOCYTES # (AUTO) 0.6 10^3/uL (0.0-1.0); MONOCYTES % (AUTO) 6 % (0-12); NEUTROPHILS # (AUTO) 6.5 10^3/uL (1.8-7.8); NEUTROPHILS % (AUTO) 69 % (42-75); PLATELET COUNT 264 10^3/uL (130-400); WHITE BLOOD COUNT 9.4 10^3/uL (4.3-11.0)
[2020-06-03 17:42] LABS: CHLORIDE 111 MMOL/L (98-107); POTASSIUM 3.6 MMOL/L (3.6-5.0); SODIUM 145 MMOL/L (135-145)
[2020-06-03 17:44] LABS: GLUCOSE 100 MG/DL (70-105)
[2020-06-03 17:46] LABS: CARBON DIOXIDE 25 MMOL/L (21-32)
[2020-06-03 17:48] LABS: CREATININE SERUM 0.92 MG/DL (0.60-1.30); GFR ESTIMATED > 60
[2020-06-03 17:49] LABS: BUN/CREATININE RATIO 16
[2020-06-03 17:53] LABS: ERYTHROCYTE SEDIMENTATION RATE 29 MM/HR (0-30)
[2020-06-03] MEDS ORDERED: fentaNYL INJECTION 100 MCG/2 ML AMP IVP ONE (18:00)
[2020-06-03] MEDS ORDERED: ONDANSETRON 4 MG/2 ML (SDV) Z0FRAN IVP ONE (18:00)
[2020-06-03] MEDS ORDERED: DOCU-143 PO (18:06)
[2020-06-03] MEDS ORDERED: ACHD5005 PO (18:06)
--- NOTE | 2020-06-03 18:40 | NUR ---
pt states after the toradol and ativan she feels better. pain is 8/10
[2020-06-03] MEDS ORDERED: KETOROLAC 30 MG/ML VIAL IVP ONE (19:00)
[2020-06-03] MEDS ORDERED: LORazepam INJ 2 MG/ML (ATIVAN) VIAL IVP PRN (19:00)
[2020-06-03] MEDS ORDERED: RX-TRAMADOL 50 MG (ULTRAM) TAB PPK#4 PO STA (19:01)
[2020-06-03] MEDS ORDERED: TRAM-42 PO (19:04)
[2020-06-03 19:24] VITALS: BP 134/68
== END 2020-06-03 19:24 | disposition other institution (70) ==
LOC: EDUNIT# 15:38 → ER 15:42
DX: M54.16 Radiculopathy, lumbar region (principal); E66.9 Obesity, unspecified; I48.91 Unspecified atrial fibrillation; G89.29 Other chronic pain; M54.9 Dorsalgia, unspecified; I10 Essential (primary) hypertension; Z68.45 Body mass index [BMI] 70 or greater, adult; Z95.5 Presence of coronary angioplasty implant and graft; Z95.810 Presence of automatic (implantable) cardiac defibrillator; Z88.5 Allergy status to narcotic agent; Z82.49 Family history of ischemic heart disease and other diseases of the circulatory system; Z79.52 Long term (current) use of systemic steroids; Z79.01 Long term (current) use of anticoagulants; Z79.891 Long term (current) use of opiate analgesic
CPT/HCPCS: 36415; 72131; 80048; 85025; 85652; 86141

== ENCOUNTER 2020-06-26 05:29 | Outpatient (RCR) | payer MEDICARE ==
[~2020-06-26] VITALS: Ht 171.5 cm; Wt 110.0 kg
[~2020-06-26 05:29] MED LIST changes: +ACHD5005 PO; +DOCU-143 PO; -ISM60TCR PO; +ISOS60TA63 PO; -LISI-552 PO; +LISI20TA26 PO; +TRAM-42 PO
== END 2020-06-26 09:47 | disposition home or self-care (01) ==
LOC: PREOP 05:29
PROVIDERS: ATTEND Surgery
DX: Z01.812 Encounter for preprocedural laboratory examination (principal); R19.5 Other fecal abnormalities; Z20.822 Contact with and (suspected) exposure to COVID-19
CPT/HCPCS: 87635

== ENCOUNTER 2020-06-30 07:15 | Day surgery (SDC) | payer MEDICARE ==
[2020-06-30] VITALS (7 sets, daily range): BP systolic 140–168; BP diastolic 68–88
[~2020-06-30] VITALS: Ht 171.5 cm; Wt 110.0 kg
[~2020-06-30 07:15] MED LIST changes: +MIDAZOLAM 2 MG/2 ML (VERSED) VIAL ONE; +PROPOFOL INJECTION 50 ML IV ONE
[2020-06-30] MEDS ORDERED: LACTATED RINGERS 1,000 ML IV ONE (07:27)
[2020-06-30] MEDS ORDERED: LACTATED RINGERS 1,000 ML IV STA (07:33)
[2020-06-30] MEDS ORDERED: HURRICAINE EXT TUBE (BENZOCAINE) XX ONE (07:45)
[2020-06-30] MEDS ORDERED: HURRICAINE EXT TUBE (BENZOCAINE) ONE (08:46)
--- NOTE | 2020-06-30 08:51 | Progress Note-Pre Operative ---
Pre-Operative Progress Note H&P Reviewed The H&P was reviewed, patient examined and no changes noted. Time Seen by Provider: 08:43 Date H&P Reviewed: Jun 30, 2020 Time H&P Reviewed: 08:44 Pre-Operative Diagnosis: Hemoccult +, Hx of colon polyps ZAIN COLLAZO DO Jun 30, 2020 08:51
[2020-06-30] MEDS ORDERED: PROPOFOL INJECTION 50 ML IV ONE (08:59)
--- NOTE | 2020-06-30 09:39 | Progress Note-Post Operative ---
Post-Operative Progess Note Surgeon (s)/Planner Intern (s) Surgeon ZAIN COLLAZO DO Planner Intern: none Pre-Operative Diagnosis Hemoccult +, Hx of colon polyps Post-Operative Diagnosis Gastritis with ?ulcer Esophagitis Sliding Hiatal Hernia Polyps Diverticula Int hemorrhoids Procedure & Operative Findings Date of Procedure 06/30/20 Procedure Performed/Findings EGD with bx Colon with hot bx Anesthesia Type IV sedation by PRESS OPERATOR HELPER Estimated Blood Loss Estimated blood loss (mL): scant Specimens/Packing Specimens Removed antral bx body of stomach bx ulcer bx GE jxn bx cecal polyp desc colon polyp ZAIN COLLAZO DO Jun 30, 2020 09:39
--- NOTE | 2020-06-30 09:41 | Endoscopy Discharge Instruct ---
Endo Procedure/Findings Findings 1.: Hiatal Hernia (sliding), Gastritis (with ??ulcer), Other Findings (Esophagitis) 2.: Polyp 3.: Diverticulosis 4.: Internal Hemorrhoids Discharge Instructions - Activity: You might feel a little sleepy until tomorrow. This is due to the medicine you received to relax you. Until tomorrow, you should: NOT drive a car, operate machinery or power tools. NOT drink any alcoholic beverages. NOT make any important decisions or sign importortant papers. Do not return to work until tomorrow, unless otherwise instructed. Resume previous activities tomorrow. Diet: Start by taking liquids. If you tolerate liquids, advance to solid food. 1.: Colonscopy in 5 years 2.: EGD in 1 year Notify Physician - If you experience excessive bleeding, unusual abdominal pain, fever, or chest pain, contact your doctor immediately. ZAIN COLLAZO DO Jun 30, 2020 09:41
--- NOTE | 2020-06-30 11:51 | Anesthesia-General Post-Op ---
MAC Patient Condition Mental Status/LOC: Same as Preop Cardiovascular: Satisfactory Nausea/Vomiting: Absent Respiratory: Satisfactory Pain: Controlled Complications: Absent Post Op Complications Complications None Follow Up Care/Instructions Patient Instructions None needed. Anesthesiology Discharge Order Discharge Order Patient is doing well, no complaints, stable vital signs, no apparent adverse anesthesia problems. No complications reported per nursing. SHERWIN VALENTE CRNA Jun 30, 2020 11:51
--- NOTE | 2020-06-30 19:14 | OPERATIVE REPORT ---
DATE OF SERVICE: 06/30/2020 PREOPERATIVE DIAGNOSES: 1. Positive Hemoccult. 2. History of colon polyps. POSTOPERATIVE DIAGNOSES: 1. Esophagitis. 2. Gastritis. 3. Sliding hiatal hernia. 4. Questionable gastric ulcer. 5. Colon polyps. 6. Diverticula. 7. Internal hemorrhoids. PROCEDURES: 1. EGD with biopsy. 2. Colonoscopy with hot biopsy. SURGEON: Fantasma Sapp DO LOADING DOCK HELPER: None. ANESTHESIA: IV sedation by the SKI BASE TRIMMER. SPECIMEN: Biopsy of the antrum, biopsy of body of stomach, biopsy of a questionable ulcer and then biopsied the GE junction as well as then the hot biopsy of cecal polyp and hot biopsy of the descending colon polyp. BLOOD LOSS: Scant. FLUIDS: Per anesthesia. POSTOPERATIVE CONDITION: Stable. INDICATION FOR PROCEDURE: The patient is a 70-year-old female who has a history of polyps, had a positive Cologuard and needed a workup. FINDINGS: The patient had some gastritis, esophagitis, sliding hiatal hernia what looked like possibly an ulcer in the stomach and then in the colon, she had a small polyp in the cecum, small polyp in descending colon. She had some diverticula and internal hemorrhoids. PROCEDURE NOTE: After informed consent was obtained, the patient was brought to the endoscopy suite, placed in bed in left lateral decubitus position. She was administered IV sedation by the SKI BASE TRIMMER who then monitored her vitals the entire time, heart rate, blood pressure and pulse ox. Scope was inserted down the mouth through the esophagus into the stomach, noted what looked like an ulcer. Also noted some esophagitis on the way down. Pushed towards the antrum and then through the antrum into the duodenum. Duodenum looked fine, took a picture. Pulled back and did a biopsy of the antrum, retroflexed the scope, saw sliding hiatal hernia, could see as she was breathing. It was going up and down, I elected to do a biopsy of the body of stomach and then the ulcer that we thought we saw we did a biopsy here as well, then pulled the scope into the GE junction, did a biopsy here and then pushed the scope back into the stomach and suctioned all the air out. I then removed the scope up the esophagus and out the mouth. Switched camera, switched gloves, went down below, started the colonoscopy, pushed in to about 150 cm, able to get all the way to cecum, took a picture of appendiceal orifice, noted the ileocecal valve and then just next to this appendix saw small polyp, took a picture of this and did the hot biopsy to remove this and then slowly withdrew the scope insufflating look circumferentially botello starting in the cecum up the ascending colon to the hepatic flexure, then down the transverse colon, the splenic flexure, into the descending colon. In the descending colon, saw another flat polyp, did another hot biopsy of this and then continued down in the sigmoid, saw some diverticula in the sigmoid and then continued down into the rectum, retroflexed in the rectal vault, saw some grade I, possibly grade II internal hemorrhoids, took a picture and then removed the scope. The patient tolerated the procedure. She was recovered in endoscopy suite. Job ID: [id number] DocumentID: [id number] Dictated Date: 06/30/2020 14:45:30 Steel Finisher Date: 06/30/2020 19:13:51 Dictated By: FANTASMA SAPP DO
== END 2020-06-30 10:45 | disposition home or self-care (01) ==
LOC: ENDO 07:15
PROVIDERS: ATTEND Surgery
DX: D12.0 Benign neoplasm of cecum (principal); D12.4 Benign neoplasm of descending colon; K29.50 Unspecified chronic gastritis without bleeding; K44.9 Diaphragmatic hernia without obstruction or gangrene; K64.8 Other hemorrhoids; K57.30 Diverticulosis of large intestine without perforation or abscess without bleeding; I10 Essential (primary) hypertension; I25.10 Atherosclerotic heart disease of native coronary artery without angina pectoris; K21.00 Gastro-esophageal reflux disease with esophagitis, without bleeding; E78.5 Hyperlipidemia, unspecified; I48.21 Permanent atrial fibrillation; Z79.01 Long term (current) use of anticoagulants; Z79.899 Other long term (current) drug therapy; Z79.02 Long term (current) use of antithrombotics/antiplatelets; Z88.5 Allergy status to narcotic agent; Z90.710 Acquired absence of both cervix and uterus; Z86.73 Personal history of transient ischemic attack (TIA), and cerebral infarction without residual deficits; Z86.010 Personal history of colon polyps; Z95.5 Presence of coronary angioplasty implant and graft; Z80.0 Family history of malignant neoplasm of digestive organs; Z83.3 Family history of diabetes mellitus
CPT/HCPCS: 88305

== ENCOUNTER → 2020-07-10 | Outpatient (CLI) | payer MEDICARE ==
[~2020-07-10] MED LIST changes: -MIDAZOLAM 2 MG/2 ML (VERSED) VIAL ONE; -PROPOFOL INJECTION 50 ML IV ONE
== END ==
LOC: LABNPT 09:37
PROVIDERS: ATTEND Pain Medicine Interventional Pain Medicine
DX: Z01.812 Encounter for preprocedural laboratory examination (principal); Z20.822 Contact with and (suspected) exposure to COVID-19
CPT/HCPCS: 87635

== ENCOUNTER 2020-07-15 11:34 | Emergency (ER) | payer MEDICARE ==
[~2020-07-15] VITALS: Ht 170.1 cm; Wt 108.1 kg
[2020-07-15] MEDS ORDERED: KETOROLAC 60 MG/2 ML VIAL IM ONE (11:45)
[2020-07-15] MEDS ORDERED: fentaNYL INJECTION 100 MCG/2 ML AMP IM PRN (11:45)
[2020-07-15] MEDS ORDERED: ONDANSETRON 4 MG (ZOFRAN) ORAL DISSOLVE TAB PO ONE (11:45)
--- NOTE | 2020-07-15 11:47 | ED Lower Extremity ---
General Chief Complaint: Lower Extremity Stated Complaint: LEG SWELLING/PAIN Source: patient Exam Limitations: no limitations History of Present Illness Date Seen by Provider: Jul 15, 2020 Time Seen by Provider: 11:46 Initial Comments To ER with left leg swelling. Is been ongoing for a few days. He has a cold sensation. She was just at [facility] [address] [place] [address] for lumbar radiculopathy receiving a lumbar epidural steroid injection. Last dose of pain medication was Tylenol last night. Onset: just prior to arrival Severity: moderate Pain/Injury Location: left ankle Method of Injury: unknown, fell Modifying Factors: Worse With Movement Allergies and Home Medications Allergies Coded Allergies: codeine (Verified Allergy, Unknown, 09/15/17) meperidine (Verified Allergy, Unknown, 09/15/17) morphine (Verified Allergy, Unknown, 09/15/17) Home Medications Amiodarone HCl 100 Mg Tablet, 100 MG PO DAILY, (Reported) Atorvastatin Calcium 20 Mg Tablet, 20 MG PO HS, (Reported) Carvedilol 25 Mg Tablet, 25 MG PO BID, (Reported) Cholecalciferol (Vitamin D3) 25 Mcg Capsule, 25 MCG PO DAILY, (Reported) Diltiazem HCl 180 Mg Tab.er.24h, 180 MG PO DAILY, (Reported) Ferrous Sulfate 325 Mg Tablet, 325 MG PO DAILY, (Reported) Furosemide 20 Mg Tablet, 20 MG PO DAILY, (Reported) Gabapentin 100 Mg Capsule, 100 MG PO BID, (Reported) Isosorbide Mononitrate 60 Mg Tab, 60 MG PO DAILY, (Reported) Lisinopril 20 Mg Tablet, 20 MG PO DAILY, (Reported) Ondansetron 4 Mg Tab.rapdis, 4 MG PO Q6H PRN for NAUSEA/VOMITING-1ST LINE, (Reported) Tramadol HCl 50 Mg Tablet, 50 MG PO Q6H PRN for NAUSEA/VOMITING Prescribed by: FOZIA HAYS on 06/03/201903 Patient Home Medication List Home Medication List Reviewed: Yes Review of Systems Constitutional: see HPI; No chills, No fever EENTM: see HPI Respiratory: no symptoms reported Cardiovascular: no symptoms reported Genitourinary: no symptoms reported Musculoskeletal: see HPI, back pain Skin: no symptoms reported Psychiatric/Neurological: No Symptoms Reported Past Dmoswrl-Zeeoac-Ijajnf Hx Patient Social History 2nd Hand Smoke Exposure: No Recent Hopitalizations: No Immunizations Up To Date Tetanus Booster (TDap): Unknown PED Vaccines UTD: Yes Date of Pneumonia Vaccine: Feb 17, 2017 Seasonal Allergies Seasonal Allergies: No Past Medical History Surgeries: Yes Coronary Stent, Defibrillator, Gallbladder, Hysterectomy, Pacemaker, Tonsillectomy Respiratory: No Cardiac: Yes (pacemaker/defib implant) Atrial Fibrillation, Cardiomyopathy, Coronary Artery Disease, Hypertension, Irregular Heartbeat Neurological: Yes TIA Reproductive Disorders: No Sexually Transmitted Disease: No Genitourinary: Yes Kidney Stones Gastrointestinal: Yes Gastroesophageal Reflux, Gall Bladder Disease Musculoskeletal: Yes Degenerate Disk Disease, Chronic Back Pain Endocrine: Yes (DIET CONTROLLED; OBESITY) Diabetes, Non-Insulin dep HEENT: No Cancer: No Psychosocial: No Integumentary: No Blood Disorders: No Family Medical History Heart Disease Physical Exam Vital Signs Vital Signs - First Documented 07/15/20 11:58 Temp 35.9 Pulse 64 Resp 18 B/P (MAP) 194/87 (122) Pulse Ox 99 O2 Delivery Room Air Capillary Refill : Height, Weight, BMI Height: 5'5.00" Weight: 247lbs. 0.0oz. [id number]; 37.39 BMI Method:Estimated General Appearance: WD/WN, no apparent distress HEENT: normal ENT inspection Respiratory: no respiratory distress, no accessory muscle use Hips: bilateral hip non-tender, bilateral hip normal inspection Legs: bilateral leg non-tender, bilateral leg normal inspection, bilateral leg normal range of motion; left leg other (She has an equally strong +1 in strength dorsalis pedis pulse bilaterally. Foot is warm to the touch. Trace pitting edema on the right, slightly more on the left. This is confined to the ankle.) Knees: bilateral knee non-tender, bilateral knee normal inspection, bilateral knee normal range of motion Ankles: bilateral ankle non-tender, bilateral ankle normal inspection, bilateral ankle normal range of motion Feet: bilateral foot non-tender, bilateral foot normal inspection, bilateral foot normal range of motion Neurologic/Psychiatric: alert, normal mood/affect, oriented x 3 Skin: normal color, warm/dry Progress/Results/Core Measures Results/Orders My Orders Orders - FOZIA HAYS APRN Ketorolac Injection (Toradol Injection) (07/15/20 11:45) Fentanyl Injection (Sublimaze Injection (07/15/20 11:45) Ondansetron Oral Dissolve Tab (Zofran (07/15/20 11:45) Us Venous Lower Ext Lt (07/15/20 11:44) Medications Given in ED Current Medications Medications Dose Ordered Sig/Maryann Route Start Time Stop Time Status Last Admin Dose Admin Fentanyl Citrate 100 mcg ONCE PRN IM 07/15/20 11:45 07/15/20 11:50 100 MCG Ketorolac Tromethamine 60 mg ONCE ONCE IM 07/15/20 11:45 07/15/20 11:46 DC 07/15/20 11:50 60 MG Ondansetron HCl 8 mg ONCE ONCE PO 07/15/20 11:45 07/15/20 11:46 DC 07/15/20 11:49 8 MG Vital Signs/I&O 07/15/20 11:58 Temp 35.9 Pulse 64 Resp 18 B/P (MAP) 194/87 (122) Pulse Ox 99 O2 Delivery Room Air Departure Impression Primary Impression: Lumbar radiculopathy Disposition: HOME, SELF-CARE Condition: Stable Departure-Patient Inst. Decision time for Depature: 12:46 Referrals: GIO BRADY MD (PCP/Family) Primary Care Physician Patient Instructions: Radiculopathy (DC) Add. Discharge Instructions: 1. Return to ER for any concerns. 2. Follow up with your doctor next week 3. medication as directed All discharge instructions reviewed with patient and/or family. Voiced understanding. Scripts Tramadol HCl (Ultram) 50 Mg Tablet 50 MG PO Q6H PRN for PAIN-MODERATE (5-7), #14 TAB Prov: FOZIA HAYS APRN 07/15/20 FOZIA HAYS APRN Jul 15, 2020 11:47
[2020-07-15] MEDS ORDERED: TRAM-42 PO (12:49)
[2020-07-15 12:54] VITALS: BP 175/91
--- NOTE | 2020-07-15 14:38 | Diagnostic Imaging Report ---
PROCEDURE: US left lower extremity venous. TECHNIQUE: Multiple real-time grayscale images were obtained over the left lower extremity in various projections. Additional duplex Doppler and color Doppler images were also obtained. INDICATION: Left leg pain and swelling EXAMINATION: Grayscale and color Doppler evaluation of the deep veins of the left lower extremity were performed with waveform analysis. FINDINGS: Continuous venous flow is present. No intraluminal filling defect is identified. There is normal compressibility and response to augmentation. No abnormal perivascular fluid collection is identified. IMPRESSION: No ultrasound evidence of left lower extremity deep venous thrombosis. Dictated by: Dictated on workstation # [id number]
== END 2020-07-15 12:58 | disposition home or self-care (01) ==
LOC: EDUNIT# 11:34 → ER 11:35
DX: M54.16 Radiculopathy, lumbar region (principal); I48.91 Unspecified atrial fibrillation; I10 Essential (primary) hypertension; Z88.5 Allergy status to narcotic agent; Z86.73 Personal history of transient ischemic attack (TIA), and cerebral infarction without residual deficits; Z95.810 Presence of automatic (implantable) cardiac defibrillator; Z95.5 Presence of coronary angioplasty implant and graft; Z82.49 Family history of ischemic heart disease and other diseases of the circulatory system

== ENCOUNTER → 2020-07-30 | Outpatient (CLI) | payer MEDICARE ==
[2020-07-30 09:29] LABS: BASOPHILS % (AUTO) 0 % (0-10); EOSINOPHILS # (AUTO) 0.2 10^3/uL (0.0-0.3); EOSINOPHILS % (AUTO) 3 % (0-10); HEMATOCRIT 39 % (35-52); HEMOGLOBIN 12.1 g/dL (11.5-16.0); LYMPHOCYTES # (AUTO) 1.8 10^3/uL (1.0-4.0); LYMPHOCYTES % (AUTO) 24 % (12-44); MEAN CORPUSCULAR HEMOGLOBIN 29 pg (25-34); MEAN CORPUSCULAR HGB CONC 31 g/dL (32-36); MEAN CORPUSCULAR VOLUME 93 fL (80-99); MEAN PLATELET VOLUME 9.5 fL (9.0-12.2); MONOCYTES # (AUTO) 0.5 10^3/uL (0.0-1.0); MONOCYTES % (AUTO) 7 % (0-12); NEUTROPHILS # (AUTO) 4.8 10^3/uL (1.8-7.8); NEUTROPHILS % (AUTO) 65 % (42-75); PLATELET COUNT 246 10^3/uL (130-400); WHITE BLOOD COUNT 7.4 10^3/uL (4.3-11.0)
[2020-07-30 09:56] LABS: ALANINE AMINOTRANSFERASE 16 U/L (0-55); ALBUMIN 3.9 GM/DL (3.2-4.5); ALKALINE PHOSPHATASE 80 U/L (40-136); BILIRUBIN,TOTAL 0.9 MG/DL (0.1-1.0); BUN/CREATININE RATIO 25; CALCIUM 9.1 MG/DL (8.5-10.1); CARBON DIOXIDE 22 MMOL/L (21-32); CHLORIDE 110 MMOL/L (98-107); CREATININE SERUM 0.87 MG/DL (0.60-1.30); GFR ESTIMATED > 60; GLUCOSE 106 MG/DL (70-105); POTASSIUM 3.7 MMOL/L (3.6-5.0); SODIUM 142 MMOL/L (135-145); TOTAL PROTEIN 6.6 GM/DL (6.4-8.2)
== END ==
LOC: LAB 09:10
PROVIDERS: ATTEND Internal Medicine Cardiovascular Disease
DX: I50.21 Acute systolic (congestive) heart failure (principal)
CPT/HCPCS: 36415; 80053; 83735; 85025

== ENCOUNTER → 2020-07-31 | Outpatient (CLI) | payer MEDICARE | LOC: CARD 13:08 | PROVIDERS: ATTEND Internal Medicine Cardiovascular Disease | DX: I50.21 Acute systolic (congestive) heart failure (principal); I08.3 Combined rheumatic disorders of mitral, aortic and tricuspid valves | CPT/HCPCS: 93306 ==

== ENCOUNTER → 2020-08-01 | Outpatient (CLI) | payer MEDICARE ==
[~2020-08-01] VITALS: Ht 170 cm; Wt 109.0 kg
[~2020-08-01] MED LIST changes: +CATHETER FLUSH 10 ML SYR IV PRN; +REGADENOSON 0.4 MG/5 ML SYR (LEXISCAN) IV ONE
[2020-08-01 09:17] VITALS: BP 144/77
--- NOTE | 2020-08-03 17:43 | STRESS TEST ---
DATE OF SERVICE: 08/01/2020 RESTING AND POST REGADENOSON TECHNETIUM-99M TETROFOSMIN SPECT CT IMAGING ORDERING PHYSICIAN: Dr. Cooper. PRIMARY PHYSICIAN: Dr. Nance. CLINICAL DIAGNOSIS: Acute systolic congestive heart failure. Baseline images were carried out after injection of 10.64 mCi of technetium-99m Tetrofosmin. This was followed by 0.4 mg regadenoson and 29.2 mCi of technetium-99m Tetrofosmin for stress imaging. The electrocardiogram showed atrial and paced ventricular rhythm with occasional premature ventricular contraction. The electrocardiogram did not change significantly with the regadenoson infusion. The patient tolerated the procedure well. Review of images at rest and following stress indicates a transient anterior perfusion defect, which is a small to moderate in size (SDS7). Gated images show normal global left ventricular systolic function with normal regional wall motion. Left ventricular ejection fraction is calculated to be 71%. Left ventricular end diastolic volume is 75 mL. TID is absent (1.13). CONCLUSIONS: 1. This study is suggestive of a small to moderate amount of anterior ischemia. 2. Normal regional wall motion. 3. Normal global left ventricular systolic function with a calculated ejection fraction of 71%. Job ID: [id number] DocumentID: [id number] Dictated Date: 08/03/2020 15:08:39 Cash Accounting Clerk Date: 08/03/2020 17:42:41 Dictated By: KIMBERLY COOPER MD, MA, FACP, FACC,
== END ==
LOC: CARD 07:43
PROVIDERS: ATTEND Internal Medicine Cardiovascular Disease
DX: I50.21 Acute systolic (congestive) heart failure (principal)
CPT/HCPCS: 78452; 93017; A9502

== ENCOUNTER 2020-08-12 19:56 | Emergency (ER) | payer OTHER, MEDICARE ==
[~2020-08-12] VITALS: Ht 170 cm; Wt 109.0 kg
[~2020-08-12 19:56] MED LIST changes: -CATHETER FLUSH 10 ML SYR IV PRN; -REGADENOSON 0.4 MG/5 ML SYR (LEXISCAN) IV ONE
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
[2020-08-12 20:37] LABS: BASOPHILS % (AUTO) 0 % (0-10); EOSINOPHILS # (AUTO) 0.3 10^3/uL (0.0-0.3); EOSINOPHILS % (AUTO) 4 % (0-10); HEMATOCRIT 39 % (35-52); HEMOGLOBIN 12.4 g/dL (11.5-16.0); LYMPHOCYTES # (AUTO) 2.2 10^3/uL (1.0-4.0); LYMPHOCYTES % (AUTO) 27 % (12-44); MEAN CORPUSCULAR HEMOGLOBIN 30 pg (25-34); MEAN CORPUSCULAR HGB CONC 32 g/dL (32-36); MEAN CORPUSCULAR VOLUME 93 fL (80-99); MEAN PLATELET VOLUME 9.8 fL (9.0-12.2); MONOCYTES # (AUTO) 0.7 10^3/uL (0.0-1.0); MONOCYTES % (AUTO) 8 % (0-12); NEUTROPHILS # (AUTO) 4.9 10^3/uL (1.8-7.8); NEUTROPHILS % (AUTO) 60 % (42-75); PLATELET COUNT 250 10^3/uL (130-400); WHITE BLOOD COUNT 8.2 10^3/uL (4.3-11.0)
[2020-08-12 20:52] LABS: ALBUMIN 4.3 GM/DL (3.2-4.5); CHLORIDE 107 MMOL/L (98-107); SODIUM 144 MMOL/L (135-145)
[2020-08-12 20:53] LABS: AMYLASE 100 U/L (25-125); PROTHROMBIN TIME PATIENT 13.1 SEC (12.2-14.7)
[2020-08-12 20:54] LABS: CALCIUM 9.6 MG/DL (8.5-10.1)
[2020-08-12 20:55] LABS: GLUCOSE 112 MG/DL (70-105); TOTAL PROTEIN 7.3 GM/DL (6.4-8.2)
[2020-08-12 20:56] LABS: CARBON DIOXIDE 24 MMOL/L (21-32)
[2020-08-12 20:57] LABS: BILIRUBIN,TOTAL 0.6 MG/DL (0.1-1.0)
[2020-08-12 20:58] LABS: ALKALINE PHOSPHATASE 116 U/L (40-136); CREATININE SERUM 1.36 MG/DL (0.60-1.30); GFR ESTIMATED 46
[2020-08-12 20:59] LABS: BUN/CREATININE RATIO 21
[2020-08-12 21:01] LABS: ALANINE AMINOTRANSFERASE 16 U/L (0-55)
[2020-08-12 21:02] LABS: LIPASE 32 U/L (8-78)
[2020-08-12] MEDS ORDERED: NS IV 1000 ML 1,000 ML IV SCH (21:15)
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
[2020-08-12] MEDS ORDERED: HOLD METFORMIN - RECEIVED CONTRAST 20 ML VIAL IV SCH (22:15)
[2020-08-12] MEDS ORDERED: NS 100 ML (IVPB) BAG IV ONE (22:15)
[2020-08-12] MEDS ORDERED: CATHETER FLUSH 10 ML SYR IV PRN (22:15)
[2020-08-12] MEDS ORDERED: IOHEXOL 350 MG/ML 100 ML (OMNIPAQUE 350) VIAL IV ONE (22:15)
[2020-08-12 23:16] LABS: BILIRUBIN,URINE NEGATIVE (NEGATIVE); CLARITY,URINE SL CLOUDY; COLOR,URINE YELLOW; GLUCOSE, URINE (UA) NEGATIVE (NEGATIVE); KETONES,URINE NEGATIVE (NEGATIVE); LEUKOCYTE ESTERASE ,URINE 1+ (NEGATIVE); NITRITE,URINE POSITIVE (NEGATIVE); PROTEIN,URINE NEGATIVE (NEGATIVE)
[2020-08-12 23:22] LABS: BACTERIA,URINE LARGE /HPF; WBC,URINE 50-100 /HPF
[2020-08-12] MEDS ORDERED: RX-NAPROXEN (NAPROSYN) 250 MG TAB PPK#4 PO STA (23:24)
[2020-08-12] MEDS ORDERED: RX-CYCLOBENZAPRINE 10 MG (FLEXERIL) TAB PPK#3 PO STA (23:24)
[2020-08-12] MEDS ORDERED: NAPR500T8 PO (23:30)
[2020-08-12] MEDS ORDERED: CYCL10TA9 PO (23:30)
[2020-08-12] MEDS ORDERED: NITR-65 PO (23:30)
[2020-08-12] MEDS ORDERED: RX-NITROFURANTOIN 100 MG (MACROBID) CAP PPK#2 PO STA (23:31)
[2020-08-12 23:45] VITALS: BP 162/96
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
--- NOTE | 2020-08-13 06:35 | Diagnostic Imaging Report ---
INDICATION: Shoulder pain COMPARISON: None FINDINGS: 3 views of the left shoulder demonstrate mild to moderate degenerative joint disease. There is no fracture or dislocation. No osseous lesion. IMPRESSION: No fracture identified Dictated by: Dictated on workstation # [id number]
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
--- NOTE | 2020-08-13 07:02 | Diagnostic Imaging Report ---
PROCEDURE: CT thoracic and lumbar spine without contrast. TECHNIQUE: Multiple contiguous axial images were obtained through the thoracic and lumbar spine without the use of intravenous contrast. Sagittal and coronal reformations were then performed.All CT scans use one or more of the following dose optimizing techniques: automated exposure control, MA and/or KvP adjustment based on a patient size and exam type, or iterative reconstruction. INDICATION: Mid and lower back pain, degenerative disc disease COMPARISON: CT chest 12/28/2019, CT lumbar spine 06/03/2020 FINDINGS: Grade 1 anterolisthesis is seen involving the L4 and L5. There is advanced degenerative disc disease and facet joint arthropathy throughout the thoracolumbar spine. There is no traumatic malalignment or fracture. No osseous lesion is seen. There is no paraspinous mass or inflammatory process. The SI joints are symmetric. IMPRESSION: 1. Advanced degenerative disc disease and facet joint arthropathy. 2. No traumatic malalignment or fracture. Agree with preliminary report Dictated by: Dictated on workstation # [id number]
== END 2020-08-12 23:45 | disposition home or self-care (01) ==
LOC: ER 19:56
DX: S16.1XXA Strain of muscle, fascia and tendon at neck level, initial encounter (principal); S39.012A Strain of muscle, fascia and tendon of lower back, initial encounter; S46.912A Strain of unspecified muscle, fascia and tendon at shoulder and upper arm level, left arm, initial encounter; S20.212A Contusion of left front wall of thorax, initial encounter; N39.0 Urinary tract infection, site not specified; G89.29 Other chronic pain; M25.551 Pain in right hip; M25.552 Pain in left hip; M25.561 Pain in right knee; M25.562 Pain in left knee; I10 Essential (primary) hypertension; I48.91 Unspecified atrial fibrillation; I25.10 Atherosclerotic heart disease of native coronary artery without angina pectoris; E11.9 Type 2 diabetes mellitus without complications; E66.01 Morbid (severe) obesity due to excess calories; Z86.73 Personal history of transient ischemic attack (TIA), and cerebral infarction without residual deficits; Z95.810 Presence of automatic (implantable) cardiac defibrillator; Z88.5 Allergy status to narcotic agent; Z79.02 Long term (current) use of antithrombotics/antiplatelets; V49.40XA Driver injured in collision with unspecified motor vehicles in traffic accident, initial encounter; Y92.410 Unspecified street and highway as the place of occurrence of the external cause
CPT/HCPCS: 36415; 70450; 71045; 71260; 72125; 72128; 72131; 73030; 73523; 74177; 80053; 81000; 82150; 83690; 84484; 85025; 85610; 85730; 87088; 93005; 93041

== ENCOUNTER → 2020-08-20 | Outpatient (CLI) | payer MEDICARE ==
[~2020-08-20] MED LIST changes: +NAPR500T8 PO; +NITR-65 PO
--- NOTE | 2020-08-20 11:39 | Diagnostic Imaging Report ---
EXAMINATION: US Thyroid. TECHNIQUE: Multiple real-time grayscale images were obtained of the thyroid in various projections. HISTORY: ENLARGED THYROID COMPARISON: None available. FINDINGS: The right lobe of the thyroid measures 5.1 x 2.5 x 2.1 cm. There are multiple right thyroid nodules. The largest is a 2.7 cm mostly solid, isoechoic, wider than tall nodule with smooth margins. The left lobe of the thyroid measures 4.3 x 2.4 x 1.5 cm. There are multiple left thyroid nodules. The largest is a 1.0 cm solid, hypoechoic, wider than tall nodule with irregular margins. The isthmus is normal and measures 0.5 cm. No suspicious adenopathy within the visualized neck. IMPRESSION: 1. A 1.0 cm solid nodule within the left lobe of the thyroid gland, TI-RADS 4. Recommend ultrasound follow-up at one, two, three, and five years. 2. A 2.7 cm solid nodule within the right lobe of the thyroid gland, TI-RADS 3. Recommend fine-needle aspiration of this nodule based on size criteria. TIRADS 1: Benign No FNA or follow-up required TIRADS 2: Not Suspicious No FNA or follow-up required TIRADS 3: Mildly Suspicious FNA if ? 2.5 cm Follow if ? 1.5 cm (At 1, 3 and 5 years from initial scan) TIRADS 4: Moderately Suspicious FNA if ? 1.5 cm Follow if ? 1 cm (At 1, 2, 3 and 5 years from initial scan) TIRADS 5: Highly Suspicious FNA if ? 1 cm Follow if ? 0.5 cm (Annually for 5 years from initial scan) Dictated by: Dictated on workstation # [id number]
== END ==
LOC: RAD 11:00
PROVIDERS: ATTEND Nurse Practitioner Family
DX: E04.2 Nontoxic multinodular goiter (principal)
CPT/HCPCS: 76536

== ENCOUNTER → 2020-08-21 | Outpatient (CLI) | payer MEDICARE ==
[~2020-08-21] MED LIST changes: -DRON400T2 PO; +DRON400T6 PO
== END ==
LOC: RAD 10:32
PROVIDERS: ATTEND Nurse Practitioner Family
DX: I73.9 Peripheral vascular disease, unspecified (principal)
CPT/HCPCS: 93923

== ENCOUNTER → 2020-08-27 | Outpatient (CLI) | payer MEDICARE ==
[~2020-08-27] VITALS: Ht 170.2 cm; Wt 108.2 kg
[~2020-08-27] MED LIST changes: +DRON400T2 PO; -DRON400T6 PO; +LIDOCAINE 1% INJ 20 ML 20 ML VIAL INJ ONE
--- NOTE | 2020-08-27 13:48 | Diagnostic Imaging Report ---
INDICATION: Right thyroid nodule. Patient presents for ultrasound guided fine needle aspiration. Patient brought to the procedure room and placed on table in the supine position. Ultrasound imaging of the right neck was performed to evaluate appropriate entry site. Right neck was then prepped and draped in usual sterile fashion. Small amount of 1 lidocaine was utilized for local anesthesia. Total of 4 passes were made into the dominant solid mass in the posterior right lobe of the thyroid utilizing 25-gauge needles and fine-needle aspiration technique. Hemostasis was obtained using manual compression. Patient tolerated procedure well and left the department in stable condition. IMPRESSION: Successful ultrasound guided fine needle aspiration of dominant right lobe thyroid nodule. Pathology results are currently pending. Dictated by: Dictated on workstation # [id number]
== END ==
LOC: RAD 12:12
PROVIDERS: ATTEND Nurse Practitioner Family
DX: E04.1 Nontoxic single thyroid nodule (principal)
CPT/HCPCS: 10005

== ENCOUNTER → 2020-11-14 | Outpatient (CLI) | payer MEDICARE ==
[~2020-11-14] MED LIST changes: -DRON400T2 PO; +DRON400T6 PO; -LIDOCAINE 1% INJ 20 ML 20 ML VIAL INJ ONE
--- NOTE | 2020-11-14 11:49 | Diagnostic Imaging Report ---
PROCEDURE: CT left upper extremity without contrast. TECHNIQUE: Multiple contiguous axial images were obtained through the left upper extremity without the use of intravenous contrast. Auto Exposure Controls were utilized during the CT exam to meet ALARA standards for radiation dose reduction. INDICATION: Left shoulder pain. COMPARISON: None available. FINDINGS: There are moderate degenerative changes at the glenohumeral joint characterized by marginal osteophyte formation at the inferior aspect. No glenoid retroversion. No fracture or concerning focal osseous lesion. Moderate degenerative arthritis of the AC joint does not have inferior-projecting osteophytes. No fatty atrophy of the rotator cuff muscle bellies. The deltoid is normal in bulk. Small glenohumeral joint effusion is noted. No subacromial/subdeltoid bursitis is appreciated. Visualized aspects of the left lung are clear. Metallic BB was placed on the anterior aspect of the upper chest to indicate the site of palpable concern. There is some minimal skin thickening and induration at this site that could be due to a small sebaceous cyst. IMPRESSION: 1. 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 2. The site of palpable abnormality in the anterior left upper chest is likely sebaceous cyst or some focal scarring from prior inflammation. Dictated by: Dictated on workstation # [id number]
== END ==
LOC: RAD 09:39
PROVIDERS: ATTEND Nurse Practitioner Family
DX: M19.012 Primary osteoarthritis, left shoulder (principal)
CPT/HCPCS: 73200

== ENCOUNTER → 2021-03-19 | Outpatient (CLI) | payer MEDICARE ==
--- NOTE | 2021-03-19 17:01 | Diagnostic Imaging Report ---
INDICATION: AICD device discomfort. EXAMINATION: Two-view chest, 03/19/2021. COMPARISON: 12/19/2019. FINDINGS: There is a left-sided pacemaker which is stable in appearance from previous imaging. Heart is unremarkable. Pulmonary vasculature is normal. Lungs and pleural spaces are clear. Osseous structures intact. IMPRESSION: Unremarkable chest. Dictated by: Dictated on workstation # [id number]
== END ==
LOC: RAD 15:48
PROVIDERS: ATTEND Nurse Practitioner Family
DX: Z95.810 Presence of automatic (implantable) cardiac defibrillator (principal)
CPT/HCPCS: 71046

== ENCOUNTER → 2021-04-21 | Outpatient (CLI) | payer MEDICARE ==
[~2021-04-21] MED LIST changes: +CYCL10TA25 PO; -CYCL10TA9 PO
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
== END ==
LOC: RAD 15:46
PROVIDERS: ATTEND Family Medicine
DX: S49.92XA Unspecified injury of left shoulder and upper arm, initial encounter (principal); R07.9 Chest pain, unspecified; V89.2XXA Person injured in unspecified motor-vehicle accident, traffic, initial encounter
CPT/HCPCS: 71046; 73000

== ENCOUNTER 2021-05-24 14:18 | Emergency (ER) | payer MEDICARE ==
[~2021-05-24] VITALS: Ht 172 cm; Wt 108.2 kg
--- OUTSIDE RECORDS SUMMARY | 2021-05-24 14:24 | XMS REPORT | CCD ---
Author Author Brigitte Metcalf Organization Katelynn Nance MD, [facility] Address [address] [place] [address] Phone Care Team Providers Care Cabin Agent Name Role Phone Katelynn Nance PP Unavailable CCM Unavailable Summary Purpose Interface Exchange Insurance Providers Payer name Policy type / Coverage type Covered republican ID Effective Begin Date Effective End Date [facility] Commercial Insurance [id number] Un known Family history Father Diagnosis Age At Onset Colon cancer Unknown Mother Diagnosis Age At Onset Diabetes mellitus Type 2 Unknown Hypertension Unknown Alcoholism Unknown Hyperlipidemia Unknown Social History Social History Element Codes Description Effective Dates Marital status Unknown González 09/29/2017 Number of children Unknown 3 09/29/[address]: 828300933 Never smoker 09/29/[address]: 725192622 Never drinks alcohol 2017 Has the patient ever used illegal drugs? Unknown Has nev er used illegal drugs 09/29/2017 Allergies, Adverse Reactions, Alerts Substance Reaction Codes Entered Date Inactivated Date Status demerol RxNorm: 859402 09/29/2017 No Inactive Date Acti ve MORPHINE SULFATE RxNorm: 5047008 09/29/2017 No Inactive Da te Active CODEINE Unknown 09/29/2017 No Inactive Date Active Problems Condition Codes Effective Dates Condition Status Essential (primary) hypertension ICD-10: I10 ICD-9: 401.1 09/29/2017 Active Mixed urge and stress incontinence ICD-10: N39.46 ICD-9: 788.33 04/21/2021 Active Type 2 diabetes mellitus without complications ICD-10: E11.9 ICD-9: 250.00 09/29/2017 Active Gait instability ICD-10: R26.81 ICD-9: 781.2 10/24/2020 Active Limited mobility ICD-10: Z74.09 ICD-9: V49.89 10/24/2020 Active Weakness ICD-10: R53.1 ICD-9: 780.79 10/24/2020 Active Left shoulder pain ICD-10: M25.512 ICD-9: 719.41 08/19/2020 Active Low back pain ICD-10: M54.5 ICD-9: 724.2 09/29/2017 Active Urinary tract infection, site not specified ICD-10: N3 9.0 ICD-9: 599.0 2018 Active Encounter for general adult medical examination with a bnormal findings ICD-10: Z00.01 ICD-9: V70.0 05/02/2019 Active 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 ICD-9: 720.2 05/05/2020 Active Need for hepatitis C screening test ICD-10: Z11.59 ICD-9: V73.89 05/05/2020 Active Acute right-sided thoracic back pain ICD-10: M54.6 ICD-9: 724.1 02/07/2020 Active COVID-19 ICD-10: U07.1 ICD-9: 079.89 01/02/2020 Active Neck pain on right side ICD-10: M54.2 ICD-9: 723.1 10/19/2018 Active Trigger point of thoracic region ICD-10: M54.6 ICD-9: 724.5 02/07/2020 Active Trigger point with back pain ICD-10: M54.9 ICD-9: 724.5 02/07/2020 Active Cough ICD-10: R05 ICD-9: 786.2 12/19/2019 Active Hospital discharge follow-up ICD-10: Z09 ICD-9: V67.59 01/02/2020 Active Acute laryngopharyngitis ICD-10: J06.0 ICD-9: 465.0 12/19/2019 Active 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 ICD-9: 356.4 09/27/2019 Active Paroxysmal atrial fibrillation ICD-10: I48.0 ICD-9: 427.31 09/29/2017 Active Vitamin B12 deficiency anemia due to intrinsic factor deficiency ICD-10: D51.0 ICD-9: 281.0 11/01/2019 Active Vitamin D deficiency ICD-10: E55.9 ICD-9: 268.9 11/01/2019 Active Other dorsalgia ICD-10: M54.89 ICD-9: 724.5 09/27/2019 Active Sacroiliac joint pain ICD-10: M53.3 ICD-9: 724.6 09/27/2019 Active Screening mammogram, encounter for ICD-10: Z12.31 ICD-9: V76.12 05/23/2019 Active Dysuria ICD-10: R30.0 ICD-9: 788.1 2018 Active Personal history of urinary calculi ICD-10: Z87.442 ICD-9: V13.01 2018 Active Diabetes Unknown 09/29/2017 Active Medications Medication Codes Instructions Start Date Stop Date Status Fill Instructions isosorbide mononitrate 20 mg tablet RxNorm: 720910 Take 4 Tablet(s) Oral every day 80mg daily - managed by cardiology 05/07/2021 05/01/2022 Active isosorbide mononitrate 20 mg tablet RxNorm: 488972 Take 4 Tablet(s) Oral every day 80mg daily - managed by cardiology 05/06/2021 08/03/2021 Active isosorbide mononitrate 20 mg tablet RxNorm: 666506 Take 4 Tablet(s) Oral every day 80mg daily - managed by cardiology 05/06/2021 05/12/2021 Active she is out; called us for fill oxybutynin chloride 5 mg tablet RxNorm: 086904 Take 1 T ablet(s) Oral two times a day 04/21/2021 04/15/2022 Active amiodarone 100 mg tablet RxNorm: 858511 Take 1 Tablet(s ) Oral every day managed by cardiology 04/21/2021 04/15/2022 Active furosemide 40 mg tablet RxNorm: 027802 Take 1 Tablet(s) Oral every day manged by cardiology 04/21/2021 04/15/2022 Active gabapentin 100 mg capsule RxNorm: 541846 5 Capsule(s) O ral as directed 2 in am and 3 in martir 04/21/2021 11/16/2021 Active isosorbide mononitrate 20 mg tablet RxNorm: 330409 Take 4 Tablet(s) Oral every day 80mg daily - managed by cardiology 04/21/2021 05/06/2021 Inactive isosorbide mononitrate ER 60 mg tablet,extended release 24 h r RxNorm: 397408 TAKE 1 TABLET BY MOUTH ONCE DAILY 10/30/2020 01/27/2021 Inactive mupirocin 2 % topical ointment RxNorm: 250662 1 Applica tion Topical two times a day 10/24/2020 No Stop Date Active prednisone 20 mg tablet RxNorm: 317885 2 Tablet(s) Oral every day 0 10/24/2020 10/29/2020 Inactive lisinopril 20 mg tablet RxNorm: 676043 Take 1 tablet by mouth o nce daily 10/20/2020 07/16/2021 Active Augmentin 500 mg-125 mg tablet RxNorm: 805207 1 Tablet( s) Oral three times a day 08/19/2020 08/26/2020 Inactive gabapentin 100 mg capsule RxNorm: 659778 5 Capsule(s) O ral as directed 2 in am and 3 in martir 08/05/2020 03/03/2021 Inactive Zofran 4 mg tablet RxNorm: 946371 1 Tablet(s) Oral Q8 as needed 07/202008/16/2020 Inactive tizanidine 2 mg tablet RxNorm: 736703 2 Tablet(s) Oral three times a day as needed muscle spasms for muscle spasms 06/18/2020 06/18/2020 Inactive Duragesic 25 mcg/hr transdermal patch RxNorm: 622816 1 Patch Transdermal every 72 hours 06/18/2020 06/18/2020 Inactive carvedilol 25 mg tablet RxNorm: 677408 Take 1 tablet by mouth t wice daily 06/11/2020 06/05/2021 Active atorvastatin 20 mg tablet RxNorm: 809387 TAKE 1 TABLET BY MOUTH ONCE DAILY AT BEDTIME 06/11/2020 06/05/2021 Active Zofran 4 mg tablet RxNorm: 874983 1 Tablet(s) Oral Q8 as needed 05/11/2020 Inactive oxycodone-acetaminophen 5 mg-325 mg tablet RxNorm: 0645170 1 Tablet(s) Oral Every 4 hrs as needed 05/12/2020 05/11/2020 Inactive oxycodone-acetaminophen 5 mg-325 mg tablet RxNorm: 1540838 1 Tablet(s) Oral Every 6 hrs as needed 05/12/2020 05/12/2020 Inactive Zofran 4 mg tablet RxNorm: 816253 1 Tablet(s) Oral Q8 as needed 06/17/2020 Inactive tizanidine 2 mg tablet RxNorm: 035075 2 Tablet(s) Oral three times a day as needed muscle spasms for muscle spasms 05/07/2020 05/07/2020 Inactive tizanidine 2 mg tablet RxNorm: 657398 1 Tablet(s) Oral three times a day as needed muscle spasms for muscle spasms 05/05/2020 05/05/2020 Inactive tizanidine 2 mg tablet RxNorm: 723971 1 Tablet(s) Oral three times a day as needed muscle spasms for muscle spasms 02/07/2020 05/04/2020 Inactive Kenalog 40 mg/mL suspension for injection RxNorm: 1207993 4 Milliliter(s) Injection 02/07/2020 02/07/2020 Inactive dexamethasone 2 mg tablet RxNorm: 023154 2 Tablet(s) Oral every day 12/20/2019 12/25/2019 Inactive ProAir HFA 90 mcg/actuation aerosol inhaler RxNorm: 044743 2 Puff(s) Inhalation four times a day 12/20/2019 12/19/2019 Inactive Mucinex 1,200 mg tablet, extended release RxNorm: 342835 1 Tablet(s) Oral two times a day 12/20/2019 12/27/2019 Inactive ProAir HFA 90 mcg/actuation aerosol inhaler RxNorm: 329307 2 Puff(s) Inhalation four times a day 12/20/2019 12/20/2019 Inactive hydroxychloroquine 200 mg tablet RxNorm: 120033 Tablet( s) Oral 400mg BID x 1 day, then 200mg BID x 5 days 12/19/2019 04/21/2021 Inactive Vitamin D2 1,250 mcg (50,000 unit) capsule RxNorm: 8726368 1 Capsule(s) Oral once a week 11/02/2019 01/31/2020 Inactive cyanocobalamin (vit B-12) 1,000 mcg/mL injection solution Rx Norm: 867929 Milliliter(s) Injection 11/01/2019 11/01/2019 Inactive gabapentin 100 mg capsule RxNorm: 332703 1 Capsule(s) Oral thre e times a day 09/27/2019 04/24/2020 Inactive diclofenac 1 % topical gel RxNorm: 004921 2 Gram(s) Top ical four times a day apply to low back and other painful joints 09/27/2019 2020 Inact chepe Kenalog 40 mg/mL suspension for injection RxNorm: 8761168 2 Milliliter(s) Injection 1mL right and 1mL left SI joint 09/27/2019 09/27/2019 Inacti ve carvedilol 25 mg tablet RxNorm: 112428 TAKE 1 TABLET BY MOUTH T WICE DAILY 09/21/2019 06/10/2020 Inactive isosorbide mononitrate ER 60 mg tablet,extended release 24 h r RxNorm: 160816 TAKE 1 TABLET BY MOUTH ONCE DAILY 07/26/2019 07/26/2019 Inactive lisinopril 20 mg tablet RxNorm: 992249 TAKE 1 TABLET BY MOUTH O NCE DAILY 07/26/2019 07/20/2020 Inactive amoxicillin 500 mg capsule RxNorm: 936794 1 Capsule(s) Oral thr ee times a day 07/26/2019 08/02/2019 Inactive amoxicillin 500 mg capsule RxNorm: 802537 1 Capsule(s) Oral thr ee times a day 07/26/2019 07/25/2019 Inactive furosemide 20 mg tablet RxNorm: 640099 1 Tablet(s) Oral every day 0 07/26/2019 07/20/2020 Inactive isosorbide mononitrate ER 60 mg tablet,extended release 24 h r RxNorm: 259200 TAKE 1 TABLET BY MOUTH ONCE DAILY 07/16/2019 07/25/2019 Inactive lisinopril 20 mg tablet RxNorm: 702184 TAKE 1 TABLET BY MOUTH O NCE DAILY 07/16/2019 07/25/2019 Inactive atorvastatin 20 mg tablet RxNorm: 458005 TAKE 1 TABLET BY MOUTH EVERY DAY AT BEDTIME 05/21/2019 05/14/2020 Inactive cyclobenzaprine 5 mg tablet RxNorm: 457478 1 Tablet(s) PO TID as needed muscle spasms 10/19/2018 10/23/2018 Inactive gabapentin 100 mg capsule RxNorm: 848595 1 Capsule(s) PO TID as needed for pain 10/19/2018 11/17/2018 Inactive Zantac 150 mg tablet RxNorm: 861356 1 Tablet(s) PO BID 07/21/201809/2018 Inactive lisinopril 20 mg tablet RxNorm: 778278 1 Tablet(s) PO daily 07/15/2019 Inactive ranitidine 150 mg capsule RxNorm: 482741 1 Capsule(s) PO BID 201807/21/2018 Inactive carvedilol 25 mg tablet RxNorm: 271125 1 Tablet(s) PO BID 07/21/2018 07/15/2019 Inactive furosemide 20 mg tablet RxNorm: 614623 1 Tablet(s) PO daily 07/15/2019 Inactive isosorbide mononitrate ER 60 mg tablet,extended release 24 h r RxNorm: 461222 1 Tablet(s) PO daily 06/19/2018 06/13/2019 Inactive ranitidine 150 mg capsule RxNorm: 053335 1 Capsule(s) PO BID 201707/20/2018 Inactive furosemide 20 mg tablet RxNorm: 754682 1 Tablet(s) PO daily 07/20/2018 Inactive carvedilol 25 mg tablet RxNorm: 089009 1 Tablet(s) PO BID 04/18/2018 07/20/2018 Inactive lisinopril 20 mg tablet RxNorm: 634618 1 Tablet(s) PO daily 07/20/2018 Inactive isosorbide mononitrate ER 60 mg tablet,extended release 24 h r RxNorm: 993170 1 Tablet(s) PO daily 04/18/2018 06/18/2018 Inactive atorvastatin 20 mg tablet RxNorm: 256081 1 Tablet(s) PO QHS 04/12/2019 Inactive isosorbide mononitrate ER 60 mg tablet,extended release 24 h r RxNorm: 494921 1 Tablet(s) PO daily 03/21/2018 04/17/2018 Inactive carvedilol 25 mg tablet RxNorm: 670257 1 Tablet(s) PO BID 03/21/2018 04/17/2018 Inactive atorvastatin 20 mg tablet RxNorm: 960456 1 Tablet(s) PO QHS 04/17/2018 Inactive furosemide 20 mg tablet RxNorm: 181363 1 Tablet(s) PO daily 04/17/2018 Inactive atorvastatin 20 mg tablet RxNorm: 258536 1 Tablet(s) PO QHS 03/15/2018 Inactive Keflex 500 mg capsule RxNorm: 472940 1 Capsule(s) PO QID 2018 0 01/31/2018 Inactive lisinopril 20 mg tablet RxNorm: 858909 1 Tablet(s) PO daily 04/17/2018 Inactive lisinopril 20 mg tablet RxNorm: 578224 1 Tablet(s) PO daily 01/17/2018 Inactive Eliquis 5 mg tablet RxNorm: 7267953 1 Tablet(s) PO BID 09/29/2017 Active ferrous sulfate 325 mg (65 mg iron) tablet RxNorm: 766561 1 Tab let(s) PO BID 09/29/2017 Active Cartia XT 180 mg capsule,extended release RxNorm: 800698 1 Caps ule(s) PO daily 09/29/2017 Active Multaq 400 mg tablet RxNorm: 255080 1 Tablet(s) PO BID 09/29/201711/2020 Inactive alprazolam 0.25 mg tablet RxNorm: 087811 1 Tablet(s) PO Q6 as neede d 09/29/2017 04/21/2021 Inactive furosemide 20 mg tablet RxNorm: 508504 1 Tablet(s) PO daily 03/15/2018 Inactive atorvastatin 20 mg tablet RxNorm: 908272 1 Tablet(s) PO QHS 02/16/2018 Inactive lisinopril 20 mg tablet RxNorm: 062187 1 Tablet(s) PO daily 01/12/2018 Inactive ranitidine 150 mg capsule RxNorm: 564852 1 Capsule(s) PO BID 201705/11/2018 Inactive isosorbide mononitrate ER 60 mg tablet,extended release 24 h r RxNorm: 873203 1 Tablet(s) PO daily 03/21/2018 03/20/2018 Inactive carvedilol 25 mg tablet RxNorm: 822760 1 Tablet(s) PO BID 03/21/2018 03/20/2018 Inactive Medication Administered Medication Codes Instructions Start Date Status Kenalog 40 mg/mL suspension for injection RxNorm: 4457326 4Milli liter 02/07/2020 No longer Active cyanocobalamin (vit B-12) 1,000 mcg/mL injection solution Rx Norm: 841855 Milliliter 11/01/2019 No longer Active Kenalog 40 mg/mL suspension for injection RxNorm: 0643117 2Milli liter 09/27/2019 No longer Active Immunizations Vaccine Codes Dose Date Status Covid-19 CVX: 08/23/2020 Covid-19 CVX: 07/25/2020 Tetanus, Diptheria, Pertussis CVX: 08/15/2015 Tetanus/Diptheria CVX: 08/15/2015 Results Observation Observation Code Item Item Code Result Date S [facility] Location HEPATITIS C (HCV) ANTIBODY F171 Hepatitis C Ab Negative 05/08/2020 Unknown Cbc With Differential Ord2 WBC 6.57 K/ul 05/05/20 Unknown Cbc With Differential Ord2 RBC 3.74 M/ul 05/05/20 Unknown Cbc With Differential Ord2 HGB 11.3 g/dl 05/05/20 Unknown Cbc With Differential Ord2 HCT 36.1 % 05/05/20 Unknown Cbc With Differential Ord2 Neut% 63.1 % 05/05/20 Unknown Cbc With Differential Ord2 MCV 96.5 fl 05/05/20 Unknown Cbc With Differential Ord2 Lymph% 25.6 % 05/05/20 Unknown Cbc With Differential Ord2 MCH 30.2 pg 05/05/20 Unknown Cbc With Differential Ord2 Concho% 7.3 % 05/05/20 Unknown Cbc With Differential Ord2 Eos% 3.5 % 05/05/20 Unknown Cbc With Differential Ord2 MCHC 31.3 pg 05/05/20 Unknown Cbc With Differential Ord2 Baso% 0.5 % 05/05/20 Unknown Cbc With Differential Ord2 PLT 259 K/ul 05/05/20 Unknown Cbc With Differential Ord2 RDW 15.4 % 05/05/20 Unknown Cbc With Differential Ord2 Neut ABS# 4.15 K/ul 05/05/20 Unknown Cbc With Differential Ord2 Lymph ABS# 1.68 K/ul 020 Unknown Cbc With Differential Ord2 [place] ABS# 0.5 K/ul 05/05/20 20 Unknown Cbc With Differential Ord2 Eos ABS# 0.2 K/ul 05/05/20 20 Unknown Cbc With Differential Ord2 Baso ABS# 0.0 K/ul 05/05/20 20 Unknown Comp Metabolic Kkw972 NA 143 mEq/L 05/05/2020 Unkn own Comp Metabolic Mvh028 K 3.8 mEq/L 05/05/2020 Unkn own Comp Metabolic Ipu300 CL 107 mEq/L 05/05/2020 Unkn own Comp Metabolic Rxt071 CO2 27.0 mEq/L 05/05/2020 Unk nown Comp Metabolic Yqj727 ANION GAP 13 05/05/2020 Unkn own Comp Metabolic Wyl053 GLUCOSE 92 mg/dL 05/05/2020 Unkn own Comp Metabolic Ohh332 Creat 0.9 mg/dL 05/05/2020 Unkn own Comp Metabolic Sdh625 eGFR 62 ml/min/1.73m2 05/05/20 20 Unknown Comp Metabolic Zbq192 BUN 17 mg/dL 05/05/2020 Unkn own Comp Metabolic Baj219 B/C Ratio 18.1 Ratio 05/05/2020 Unk nown Comp Metabolic Dbt106 CALCIUM 8.9 mg/dL 05/05/2020 Unkn own Comp Metabolic Zji686 ALK PHOS 70 U/L 05/05/2020 Unkn own Comp Metabolic Vtn847 AST(SGOT) 9 U/L 05/05/2020 Unkn own Comp Metabolic Eqm338 ALT(SGPT) 10 U/L 05/05/2020 Unkn own Comp Metabolic Jhh151 BILI T 0.7 mg/dL 05/05/2020 Unkn own Comp Metabolic Khf890 ALBUMIN 4.0 g/dL 05/05/2020 Unkn own Comp Metabolic Dsz993 TPRO 6.1 g/dL 05/05/2020 Unkn own Comp Metabolic Tzy367 GLOB 2.1 g/dL 05/05/2020 Unkn own Comp Metabolic Vaz125 A/G Ratio 1.9 Ratio 05/05/2020 Unkn own Comp Metabolic Ufd073 Osmo 286 mOsmo 05/05/2020 Unkn own Tsh Ord6 TSH (3rd IS) 1.60 uIU/mL 05/05/2020 Unkn own %Hba1C Nbx832 % HbA1c 12275-1 5.9 % 05/05/2020 Unknown %Hba1C Jma892 Gluc Ave 123 mg/dL 05/05/2020 Unknown Lipid Ord30 CHOL 159 mg/dL 05/05/2020 Unknown Lipid Ord30 HDL 54.0 mg/dl 05/05/2020 Unknown Lipid Ord30 TRIG 75 mg/dL 05/05/2020 Unknown Lipid Ord30 LDL 90 mg/dL 05/05/2020 Unknown Lipid Ord30 C/HDL 2.9 Ratio 05/05/2020 Unknown Cbc With Differential Ord2 WBC 5.02 K/ul 04/10/20 18 Unknown Cbc With Differential Ord2 RBC 3.88 M/ul 04/10/20 18 Unknown Cbc With Differential Ord2 HGB 11.5 g/dl 04/10/20 18 Unknown Cbc With Differential Ord2 HCT 36.2 % 04/10/20 18 Unknown Cbc With Differential Ord2 Neut% 55.5 % 04/10/20 18 Unknown Cbc With Differential Ord2 Lymph% 29.9 % 04/10/20 18 Unknown Cbc With Differential Ord2 MCV 93.3 fl 04/10/20 18 Unknown Cbc With Differential Ord2 MCH 29.6 pg 04/10/20 18 Unknown Cbc With Differential Ord2 Concho% 11.6 % 04/10/20 18 Unknown Cbc With Differential Ord2 MCHC 31.8 pg 04/10/20 18 Unknown Cbc With Differential Ord2 Eos% 2.8 % 04/10/20 18 Unknown Cbc With Differential Ord2 Baso% 0.2 % 04/10/20 18 Unknown Cbc With Differential Ord2 PLT 222 K/ul 04/10/20 18 Unknown Cbc With Differential Ord2 Neut ABS# 2.79 K/ul 04/10/20 18 Unknown Cbc With Differential Ord2 RDW 14.0 % 04/10/20 18 Unknown Cbc With Differential Ord2 Lymph ABS# 1.50 K/ul 018 Unknown Cbc With Differential Ord2 [place] ABS# 0.6 K/ul 04/10/20 18 Unknown Cbc With Differential Ord2 Eos ABS# 0.1 K/ul 04/10/20 18 Unknown Cbc With Differential Ord2 Baso ABS# 0.0 K/ul 04/10/20 18 Unknown %Hba1C Kjz400 % HbA1c 40361-6 5.4 % 04/10/2018 Unknown %Hba1C Kth906 Gluc Ave 108 mg/dL 04/10/2018 Unknown Tsh Ord6 TSH (3rd IS) 3.65 uIU/mL 03/01/2018 Unkn own Lipid Ord30 CHOL 137 mg/dL 03/01/2018 Unknown Lipid Ord30 HDL 50.0 mg/dl 03/01/2018 Unknown Lipid Ord30 TRIG 75 mg/dL 03/01/2018 Unknown Lipid Ord30 LDL 72 mg/dL 03/01/2018 Unknown Lipid Ord30 C/HDL 2.7 Ratio 03/01/2018 Unknown Comp Metabolic Xjs813 NA 144 mEq/L 03/01/2018 Unkn own Comp Metabolic Nuu441 K 3.6 mEq/L 03/01/2018 Unkn own Comp Metabolic Nni066 CL 111 mEq/L 03/01/2018 Unkn own Comp Metabolic Bqo732 CO2 23.0 mEq/L 03/01/2018 Unk nown Comp Metabolic Wvt062 ANION GAP 14 03/01/2018 Unkn own Comp Metabolic Kky145 GLUCOSE 103 mg/dL 03/01/2018 Unkn own Comp Metabolic Bbc790 Creat 0.9 mg/dL 03/01/2018 Unkn own Comp Metabolic Xnx299 eGFR 67 ml/min/1.73m2 03/01/20 18 Unknown Comp Metabolic Lmf261 BUN 15 mg/dL 03/01/2018 Unkn own Comp Metabolic Dil196 B/C Ratio 16.9 Ratio 03/01/2018 Unk nown Comp Metabolic Wph163 CALCIUM 9.4 mg/dL 03/01/2018 Unkn own Comp Metabolic Ilb839 ALK PHOS 85 U/L 03/01/2018 Unkn own Comp Metabolic Euh426 AST(SGOT) 14 U/L 03/01/2018 Unkn own Comp Metabolic Byq732 ALT(SGPT) 12 U/L 03/01/2018 Unkn own Comp Metabolic Xnb227 BILI T 0.9 mg/dL 03/01/2018 Unkn own Comp Metabolic Uzy224 ALBUMIN 4.2 g/dL 03/01/2018 Unkn own Comp Metabolic Rxj944 TPRO 6.5 g/dL 03/01/2018 Unkn own Comp Metabolic Xhj560 GLOB 2.3 g/dL 03/01/2018 Unkn own Comp Metabolic Xhq639 A/G Ratio 1.8 Ratio 03/01/2018 Unkn own Comp Metabolic Kja822 Osmo 288 mOsmo 03/01/2018 Unkn own Culture Urine [id number] URINE CULTURE SEE NOTES 01/30/2018 Unknown Culture Urine [id number] Continued Results 01/31/20 18 Unknown Urine Culture Ucult Complete >100,000 col/ml aerobi c growth sent to ref lab 01/26/2018 Unknown %Hba1C Dgi323 % HbA1c 11627-6 5.6 % 09/30/2017 Unknown %Hba1C Xma961 Gluc Ave 114 mg/dL 09/30/2017 Unknown UA Specific Lucas 1.030 DateTime(Free Text in ) Unknown UA PH - DateTime(Free Text i n ) Unknown UA Protein 30+ DateTime(Free Text i n ) Unknown UA Blood + DateTime(Free Text i n ) Unknown UA Bilirubin + DateTime(Free Text i n ) Unknown UA Ketones - DateTime(Free Text i n ) Unknown UA Urobilinogen 0.2 DateTime(Free Shar t in ) Unknown UA Nitrite + DateTime(Free Text i n ) Unknown UA Leukocytes ++ DateTime(Free Text in ) Unknown UA Glucose - DateTime(Free Text i n ) Unknown Procedures Procedure Codes Date PPPS, SUBSEQ VISIT CPT-4: G0439 05/05/2020 DRAIN/INJECT JOINT/BURSA CPT-4: 80582 05/05/2020 TRIAMCINOLONE ACET INJ NOS 10 mg CPT-4: J3301 020 DEPRESSION SCREEN ANNUAL CPT-4: G0444 05/05/2020 INJ TRIGGER POINT 1/2 MUSCL CPT-4: 33734 02/07/2020 INJECT TRIGGER POINTS 3/> CPT-4: 58193 02/07/2020 TRIAMCINOLONE ACET INJ NOS 10 mg CPT-4: J3301 020 THER/PROPH/DIAG INJ SC/IM CPT-4: 74641 11/01/2019 VITAMIN B12 INJECTION 1000 mcg CPT-4: J3420 0 TRIAMCINOLONE ACET INJ NOS 10 mg CPT-4: J3301 020 DRAIN/INJECT JOINT/BURSA CPT-4: 87553 09/27/2019 PPPS, SUBSEQ VISIT CPT-4: G0439 05/02/2019 URINALYSIS NONAUTO W/O SCOPE CPT-4: 17359 2018 Vital Signs Date Vital 04/21/2021 Blood Pressure 1: 134/80 Code: 8480-6 BMI: 38.1 Code: 77432-7 Heart Rate 1: 65 bpm Height: 5'8" Code: 8302-2 Respiratory Rate: 18 bpm SpO2: 98% Temperature: 36.8 (C) / 98.2 (F) Weight: 247 lbs Code: 66898-3 10/24/2020 Blood Pressure 1: 136/84 Code: 8480-6 BMI: 37.3 Code: 42839-6 Heart Rate 1: 85 bpm Height: 5'8" Code: 8302-2 SpO2: 97% Temperature: 3 5.8 (C) / 96.5 (F) Weight: 242 lbs Code: 38034-4 08/19/2020 Blood Pressure 1: 108/70 Code: 8480-6 Heart Rate 1: 73 bpm Height: 5'8" Code: 8302-2 SpO2: 93% Temperature: 36.8 (C) / 98.2 (F) Weight: Code: 28541-7 05/05/2020 Blood Pressure 1: 146/74 Code: 8480-6 BMI: 38.0 Code: 05810-0 Heart Rate 1: 83 bpm Height: 5'8" Code: 8302-2 SpO2: 98% Temperature: 3 6.3 (C) / 97.4 (F) Weight: 246 lbs Code: 92661-0 02/07/2020 Blood Pressure 1: 146/88 Code: 8480-6 BMI: 37.7 Code: 13961-7 Heart Rate 1: 89 bpm Height: 5'8" Code: 8302-2 Respiratory Rate: 17 bpm SpO2: 98% Temperature: 36.4 (C) / 97.6 (F) Weight: 244 lbs Code: 90796-2 01/02/2020 Height: Code: 8302-2 Weight: Code: 294 63-7 12/19/2019 Height: Code: 8302-2 Weight: Code: 294 63-7 11/01/2019 Blood Pressure 1: 126/68 Code: 8480-6 BMI: 36.9 Code: 01279-8 Heart Rate 1: 87 bpm Height: 5'8" Code: 8302-2 Respiratory Rate: 15 bpm SpO2: 96% Temperature: 36.6 (C) / 97.8 (F) Weight: 239 lbs Code: 57407-0 09/27/2019 Blood Pressure 1: 120/74 Code: 8480-6 BMI: 37.3 Code: 35071-5 Heart Rate 1: 80 bpm Height: 5'8" Code: 8302-2 Respiratory Rate: 16 bpm SpO2: 97% Temperature: 36.5 (C) / 97.7 (F) Weight: 242 lbs Code: 55481-7 05/02/2019 Blood Pressure 1: 128/70 Code: 8480-6 BMI: 37.8 Code: 18381-5 Heart Rate 1: 86 bpm Height: 5'8" Code: 8302-2 SpO2: 98% Weight: 245 lb s Code: 39615-7 10/19/2018 BMI: 37.7 Code: 26261-8 Heart Rate 1: 79 bpm Hei ght: 5'8" Code: 8302-2 SpO2: 99% Weight: 244 lbs Code: 31593 -7 2018 Blood Pressure 1: 132/64 Code: 8480-6 BMI: 36.7 Code: 37265-0 Heart Rate 1: 62 bpm Height: 5'8" Code: 8302-2 SpO2: 96% Weight: 238 lb s Code: 21125-9 09/29/2017 Blood Pressure 1: 124/76 Code: 8480-6 BMI: 36.8 Code: 12021-8 Heart Rate 1: 83 bpm Height: 5'8" Code: 8302-2 SpO2: 98% Weight: 238 lb s 8 oz Code: 68841-5 Functional Status No Functional Status data Reason For Visit Reason For Visit Effective Dates Notes urinary incontinence 04/21/2021 gait abnormality 10/24/2020 Hospital Follow Up 08/19/2020 Annual Medicare Wellness Exam 05/05/2020 Hospital Follow Up 02/07/2020 cough 01/02/2020 sinus congestion 12/19/2019 fatigue 11/01/2019 foot pain 09/27/2019 Annual Medicare Wellness Exam 05/02/2019 neck and arm pain 10/19/2018 low back pain 2018 low back pain 09/29/2017 Encounters Encounter Performer Location Codes Date ([id number]) [id number] EST. PATIENT, LEVEL IV Diagnosis: Essential (primary) hypertension[ICD10: I10] Diagnosis: Mixed urge and stress incontinence[ICD10: N39.46] Diagnosis: Type 2 diabetes mellitus without complications[ICD10: E11.9] Katelynn Nance MD, [facility] CPT-4: 28282 04/21/2021 ([id number]) [id number] EST. PATIENT, LEVEL III Diagnosis: Weakness[ICD10: R53.1] Diagnosis: Limited mobility[ICD10: Z74.09] Diagnosis: Gait instability[ICD10: R26.81] Martha Nance MD , [facility] CPT-4: 03219 10/24/2020 ([id number]) 55751 EST. PATIENT, LEVEL IV Diagnosis: Urinary tract infection, site not specified[ICD10: N39.0] Diagnosis: Low back pain[ICD10: M54.5] Diagnosis: Left shoulder pain[ICD10: M25.512] Hayley wise MD, [facility] CPT-4: 37991 08/19/2020 ([id number]) [id number] EST. PATIENT, LEVEL IV Diagnosis: Neck pain on right side[ICD10: M54.2] Diagnosis: Acute right-sided thoracic back pain[ICD10: M54.6] Diagnosis: Acute bilateral low back pain without sciatica[ICD10: M54.5] Diagnosis: Trigger point of thoracic region[ICD10: M54.6] Diagnosis: Trigger point with back pain[ICD10: M54.9] Diagnosis: Essential (primary) hypertension[ICD10: I10] Diagnosis: COVID-19[ICD10: U07.1] Katelynn Nance MD, [facility] CPT -4: 78131 02/07/2020 [id number] EST. PATIENT, LEVEL II Diagnosis: Cough[ICD10: R05] Diagnosis: Hospital discharge follow-up[ICD10: Z09] Diagnosis: COVID-19[ICD10: U07.1] Martha Nance MD, [facility] CPT -4: 92506 01/02/2020 [id number] EST. PATIENT, LEVEL III Diagnosis: Cough[ICD10: R05] Diagnosis: Acute laryngopharyngitis[ICD10: J06.0] Martha Chanel MD, [facility] CPT-4: 37937 12/19/2019 ([id number]) [id number] EST. 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 PATIENT, LEVEL III Diagnosis: Cervicalgia[ICD10: M54.2] Martha Nance MD, [facility] CPT-4: 66380 10/19/2018 ([id number]) 49479 EST. PATIENT, LEVEL IV Diagnosis: Essential (primary) hypertension[ICD10: I10] Diagnosis: Low back pain[ICD10: M54.5] Diagnosis: Dysuria[ICD10: R30.0] Diagnosis: Personal history of urinary calculi[ICD10: Z87.442] Diagnosis: Paroxysmal atrial fibrillation[ICD10: I48.0] Diagnosis: Urinary tract infection, site not specified[ICD10: N39.0] Katelynn Nance MD, [facility] CPT-4: 73084 2018 OFFICE VISIT, NEW - LEVEL 3 Diagnosis: Essential (primary) hypertension[ICD10: I10] Diagnosis: Type 2 diabetes mellitus without complications[ICD10: E11.9] Diagnosis: Low back pain[ICD10: M54.5] Diagnosis: Paroxysmal atrial fibrillation[ICD10: I48.0] Hayley Nance MD, [facility] CPT-4: 45151 09/29/2017 Plan of Care Planned Activity Notes Codes Status Date Visit Plan: Urge incontinence -Pt has ur ge incontinence - the patient has been counseled about potential triggers for increase in sensation of the urgency - the pt has been counseled to avoid caffeinated products, spicy products, and to urinate every 2-3 hours to prevent the incontinence associated with the urgency. Pt is to start on Oxybutynin and to call if symptoms worsen. Hypertension - well controlled - continue with current medications, continue with no added salt diet. Pt has been encouraged to exercise daily. The pt has been advised to call the office if there are any acute concerns about change in blood pressure readings at home. Diabetes Mellitus - controlled - per recent FSBS reports. I have recommended for the patient to have follow up labs prior to the next office visit. The patient has been instructed to continue with current medications as previously directed, continue with regular FSBS monitoring to assure continued control of diabetes. Pt to call for any acute concerns, complaints, or if the blood glucose readings are starting to become less controlled. 04/21/2021 Patient Education: Patient Medication Summary Completed 04/21/2021 Patient Education: Diabetes Completed 04/21/2021 Appointment: Martha Linn WPtel: [phone] [facility] [place] (15 min) Moderate 10/24/2020 Patient Education: Patient Medication Summary Completed 10/24/2020 Appointment: Martha Linn WPtel: [facility] [place] (30 min) Complex 10/03/2020 Visit Plan: UTI - STOP MACROBID - start augmentin as directed- Antibiotic electronically prescribed to pt's pharmacy of choice. Pt to call if symptoms do not improve. Enlarged thyroid -schedule sono Left shoulder pain -monitor and call if not improving Chronic back pain - follow up with pain management - continue gabapentin and tylenol - patient states tramadol did not help. 08/19/2020 Appointment: Hayley Metcalf WPtel: [id number] [place] (30 min) Complex 08/19/2020 Patient Education: Patient Medication Summary Completed 08/19/2020 Patient Education: Back Pain Completed 08/19/2020 Visit Plan: Medicare Exam - today we dis cussed the patients past history, immunizations, preventative exams/evaluations - colonoscopy, fecal occult blood testing, routine labs for renal function, glucose, cholesterol, osteoporosis evaluations, cardiovascular testing and cancer screenings. We have also discussed mental health and the signs/symptoms of depression. The patient was advised of home safety evaluations and the need to make sure that as the aging process continues, we need to be aware of different ways to make the home a safer place to reside. The patient has also been counseled that exercise is nece ssary - and of utmost importance as we age to help decrease fall risk and to maintain independence in the home. Today we discussed the need for the patient to create paperwork for Advanced directives as well as for the patient to provide this office with a copy of her DOPA paperwork for health care surrogate. DM- check labs today Heart failure -managed by cardiology Colorectal screening- will order cologuard CKD screening- check labs today Hep C screen- ordered today with labs Chronic back pain -sciatica-worsening with PT- and not controlled with any inflammatories- injection today in the office -refer to Dr Whitaker to discuss epidural injections 05/05/2020 Appointment: Hayley Metcalf WPtel: [phone] [id number] [facility] - Annual Wellness Visit 04/16 Patient Education: Patient Medication Summary Completed 05/05/2020 Patient Education: Diabetes Completed 05/05/2020 Visit Plan: Hypertension - well controll ed - continue with current medications, continue with no added salt diet. Pt has been encouraged to exercise daily. The pt has been advised to call the office if there are any acute concerns about change in blood pressure readings at home. appt with Anurag Jiang for therapy for upper and lower back trigger point injections into back on right and left from shoulder to hips right SI, left SI 1 spot each side, and 1 site left mid back, 1 site left upper neck and 7 sites from right scapula to low back RX for tizanidine for muscle relaxer. 02/07/2020 Appointment: [phone] (15 min) Moderate 02/07/2020 Patient Education: Patient Medication Summary Completed 02/07/2020 Patient Education: .Cervicalgia Neck Pain Completed 02/07/2020 Patient Education: Back Pain Completed 02/07/2020 Visit Plan: Hospital follow up - This wa s a follow up appointment from the patient's hospitalization during which time Dr. Nance formulated the assessment and plan for the follow up on this patient's medical condition. 01/02/2020 Appointment: Martha Linn WPtel: [facility] TeleHealth 01/02/2020 Patient Education: Patient Medication Summary Completed 01/02/2020 Visit Plan: Cough, congestion, some dysp kourtney - known exposure to COVID-19 - pt tested for COVID-19 today awaiting results - Discussed with Dr. Nance - will order hydroxychloroquine and chest x-ray - will treat as indicated 12/19/2019 Appointment: Martha Linn WPtel: [facility] [facility] 12/19/2019 Patient Education: Patient Medication Summary Completed 12/19/2019 Visit Plan: Hypertension - well controll ed - continue with current medications, continue with [...] if their heart rate is becoming uncontrolled. Peripheral neuropathy - continue with gabapentin concern for Vitamin D deficiency - rx for vitamin d sent to pharmacy - check labs - order sent to lab for blood work 11/01/2019 Patient Education: Patient Medication Summary Completed 11/01/2019 Care Plan: Vitamin D 25 Oh Pending 11/01/2019 Care Plan: Comp Metabolic Pending Care Plan: Magnesium Pending 020 Appointment: Katelynn Nance WPtel: [address] [place], [place] [id number] (15 min) Moderate 09/27/2019 Patient Education: Patient Medication Summary Completed 09/27/2019 Patient Education: Diabetes Completed 09/27/2019 Care Plan: Cbc With Differential Pending 09/27/2019 Care Plan: Comp Metabolic Pending Care Plan: %Hba1C LOINC : 98597-6 Pending 09/27/2019 Care Plan: Tsh Pending 09/27/2019 Care Plan: B12 Pending 09/27/2019 Care Plan: Folate Pending 09/27/2019 Patient Education: Patient Medication Summary Completed 05/23/2019 Care Plan: Comp Metabolic Pending Care Plan: Cbc With Differential Pending 05/04/2019 Care Plan: %Hba1C LOINC : 22254-2 Pending 05/04/2019 Care Plan: Tsh Pending 05/04/2019 Care Plan: Lipid Pending 05/04/2019 Care Plan: HEPATITIS C (HCV) ANTIBODY Pen ding 05/04/2019 Visit Plan: Medicare Exam - today we dis cussed the patients past history, immunizations, preventative exams/evaluations - colonoscopy, fecal occult blood testing, routine labs for renal function, glucose, cholesterol, osteoporosis evaluations, cardiovascular testing and cancer screenings. We have also discussed mental health and the signs/symptoms of depression. The patient was advised of home safety evaluations and the need to make sure that as the aging process continues, we need to be aware of different ways to make the home a safer place to reside. The patient has also been counseled that exercise is nece ssary - and of utmost importance as we age to help decrease fall risk and to maintain independece in the home. Today we discussed the need for the patient to create paperwork for Advanced directives as well as for the patient to provide this office with a copy of her DOPA paperwork for health care surrogate. Angina Pectoris, HTN - managed by cardiology - Dr. Wong Diabetes Mellitus, neuropathy - I have recommended for the patient to have follow up labs prior to the next office visit. The patient has been instructed to continue with current medications as previously directed, continue with regular FSBS monitoring to assure continued control of diabetes. Pt to call for any acute concerns, complaints, or if the blood glucose readings are starting to become less controlled. I have recommended for the patient to follow more strictly to the diabetic diet as discussed in clinic to allow for greater blood glucose control. Esophageal Reflux - the patient has been counseled against excessive intake of caffeine, spicy foods, peppermint, and cinnamon - all of which can exacerbate esophageal reflux. The patient is to take medications as prescribed and call the office if the symptoms are not improving. Seizure disorder - no reports of this disorder Colorectal cancer screening - managed by Dr. Mendoza CKD - will monitor with labs cognitive function - no signs/concerns of dementia Diabetes opthalmic manifestations - pt is to follow up with eye doctor Hep C screening - will check with next labs 05/02/2019 Appointment: Martha Linn WPtel: [phone] [facility] [facility] - Annual Wellness Visit 04/15 Patient Education: Patient Medication Summary Completed 05/02/2019 Appointment: Hayley Metcalf WPtel: [phone] [id number] [facility] - Annual Wellness Visit 12/2018 Care Plan: X-RAY EXAM NECK SPINE 2-3 VW LOINC : 79513-0 Pending 10/23/2018 Visit Plan: Neck Pain- pt to start with aspercreme or biofreeze to neck three times daily and start neck exercises daily. 10/19/2018 Appointment: Martha Linn WPtel: [facility] (15 min) Moderate 10/19/2018 Patient Education: Patient Medication Summary Completed 10/19/2018 Patient Education: .Cervicalgia Neck Pain Completed 10/19/2018 Visit Plan: Hypertension - well controll ed - continue with current medications, continue with [...] ordered - keflex rx sent to [facility]. 2018 Appointment: Katelynn Nance WPtel: [facility] (15 min) Moderate 2018 Patient Education: Patient Medication Summary Completed 2018 Patient Education: Back Pain Completed 2018 Care Plan: X-RAY EXAM L-S SPINE 2/3 VWS LOINC : 65831-1 Pending 2018 Visit Plan: Hypertension - well controll ed - continue with current medications, continue with [...] starting to become less controlled. Low back pain- history of kidney stones-check UA Afib-on eliquis-managed by Dr Layne 09/29/2017 Appointment: Hayley Metcalf WPtel: [phone] [phone] New Patient 09/29/2017 Patient Education: Patient Medication Summary Completed 09/29/2017 Instructions Comment Date oxybutynin can cause dry mouth - over th e counter lozenges called XYLIMELT and ACT lozenges - these are saliva stimulants that can help if the mouth gets dry from the oxybutynin that is supposed to help with the urinary incontinence. . Urge incontinence -Pt has urge inconti nence - the patient has been counseled about potential triggers for increase in sensation of the urgency - the pt has been counseled to avoid caffeinated products, spicy products, and to urinate every 2-3 hours to prevent the incontinence associated with the urgency. Pt is to start on Oxybutynin and to call if symptoms worsen. Hypertension - well controlled - continue with current medications, continue with no added salt diet. Pt has been encouraged to exercise daily. The pt has been advised to call the office if there are any acute concerns about change in blood pressure readings at home. Diabetes Mellitus - controlled - per recent FSBS reports. I have recommended for the patient to have follow up labs prior to the next office visit. The patient has been instructed to continue with current medications as previously directed, continue with regular FSBS monitoring to assure continued control of diabetes. Pt to call for any acute concerns, complaints, or if the blood glucose readings are starting to become less controlled. 04/21/2021 will send prednisone for L shoulder and mupirocin for skin spot will order CT for shoulder since you cannot have an MRI will send orders for walker . 10/24/2020 STOP MACROBID/NITROFURANTOIN START AUGMENTIN FOR UTI TAKE PROBIOTIC WHILE ON ABX THYROID ULTRASOUND FOLLOW UP WITH PAIN MANAGEMENT . UTI - STOP MACROBID - start augmentin as directed- Antibiotic electronically prescribed to pt's pharmacy of choice. Pt to call if symptoms do not improve. Enlarged thyroid -schedule sono Left shoulder pain -monitor and call if not improving Chronic back pain - follow up with pain management -continue gabapentin and tylenol - patient states tramadol did not help. 08/19/2020 . Medicare Exam - today we discussed the patients past history, immunizations, preventative exams/evaluations - colonoscopy, fecal occult blood testing, routine labs for renal function, glucose, cholesterol, osteoporosis evaluations, cardiovascular testing and cancer screenings. We have also discussed mental health and the signs/symptoms of depression. The patient was advised of home safety evaluations and the need to make sure that as the aging process continues, we need to be aware of different ways to make the home a safer place to reside. The patient has also been counseled that exercise is necessary - and of utmost importance as we age to help decrease fall risk and to maintain independence in the home. Today we discussed the need for the patient to create paperwork for Advanced directives as well as for the patient to provide this office with a copy of her DOPA paperwork for health care surrogate. DM- check labs today Heart failure -managed by cardiology Colorectal screening- will order cologuard CKD screening- check labs today Hep C screen- ordered today with labs Chronic back pain -sciatica-worsening with PT- and not controlled with any inflammatories- injection today in the office -refer to Dr Whitaker to discuss epidural injections 05/05/2020 . Hypertension - well controlled - phil nue with current medications, continue with no added salt diet. Pt has been encouraged to exercise daily. The pt has been advised to call the office if there are any acute concerns about change in blood pressure readings at home. appt with Anurag Jiang for therapy for upper and lower back trigger point injections into back on right and left from shoulder to hips right SI, left SI 1 spot each side, and 1 site left mid back, 1 site left upper neck and 7 sites from right scapula to low back RX for tizanidine for muscle relaxer. 02/07/2020 . Hospital follow up - This was a follow up appointment from the patient's hospitalization during which time Dr. Nance formulated the assessment and plan for the follow up on this patient's medical condition. 01/02/2020 . Cough, congestion, some dyspnea - know n exposure to COVID-19 - pt tested for COVID-19 today awaiting results - Discussed with Dr. Nance - will order hydroxychloroquine and chest x-ray - will treat as indicated 12/19/2019 . Hypertension - well controlled - phil [...] if their heart rate is becoming uncontrolled. Peripheral neuropathy - continue with gabapentin concern for Vitamin D deficiency - rx for vitamin d sent to pharmacy - check labs - order sent to lab for blood work 11/01/2019 . Medicare Exam - today we discussed the patients past history, immunizations, preventative exams/evaluations - colonoscopy, fecal occult blood testing, routine labs for renal function, glucose, cholesterol, osteoporosis evaluations, cardiovascular testing and cancer screenings. We have also discussed mental health and the signs/symptoms of depression. The patient was advised of home safety evaluations and the need to make sure that as the aging process continues, we need to be aware of different ways to make the home a safer place to reside. The patient has also been counseled that exercise is necessary - and of utmost importance as we age to help decrease fall risk and to maintain independece in the home. Today we discussed the need for the patient to create paperwork for Advanced directives as well as for the patient to provide this office with a copy of her DOPA paperwork for health care surrogate. Angina Pectoris, HTN - managed by cardiology - Dr. Wong Diabetes Mellitus, neuropathy - I have recommended for the patient to have follow up labs prior to the next office visit. The patient has been instructed to continue with current medications as previously directed, continue with regular FSBS monitoring to assure continued control of diabetes. Pt to call for any acute concerns, complaints, or if the blood glucose readings are starting to become less controlled. I have recommended for the patient to follow more strictly to the diabetic diet as discussed in clinic to allow for greater blood glucose control. Esophageal Reflux - the patient has been counseled against excessive intake of caffeine, spicy foods, peppermint, and cinnamon - all of which can exacerbate esophageal reflux. The patient is to take medications as prescribed and call the office if the symptoms are not improving. Seizure disorder - no reports of this disorder Colorectal cancer screening - managed by Dr. Mendoza CKD - will monitor with labs cognitive function - no signs/concerns of dementia Diabetes opthalmic manifestations - pt is to follow up with eye doctor Hep C screening - will check with next labs 05/02/2019 will check neck x-ray start flexeril as needed for muscle spasms [...] daily and start neck exercises daily. 10/19/2018 . Hypertension - well controlled - phil [...] ordered - keflex rx sent to [facility]. 2018 RECOMMEND PROBIOTIC TWICE DAILY FOR LOOS E STOOLS IF SYMPTOMS PERSIST CHECK UA -CALL [...] stones-check UA Afib-on eliquis-managed by Dr Layne 09/29/2017 Medical Equipment No Medical Equipment data Health Concerns Section Health Concerns data not found Goals Section Goals data not found Interventions Section Interventions data not found Health Status Evaluations/Outcomes Section Health Status Evaluations/Outcomes data not found Advance Directives No Advance Directive data
--- OUTSIDE RECORDS SUMMARY | 2021-05-24 14:24 | XMS REPORT | CCD ---
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 Role Phone Katelynn Nance PP Unavailable CCM Unavailable Summary Purpose Interface Exchange Insurance Providers Payer name Policy type / Coverage type Covered alliance party ID Effective Begin Date Effective End Date [facility] Commercial Insurance [id number] Un known Family history Father Diagnosis Age At Onset Colon cancer Unknown Mother Diagnosis Age At Onset Diabetes mellitus Type 2 Unknown Hypertension Unknown Alcoholism Unknown Hyperlipidemia Unknown Social History Social History Element Codes Description Effective Dates Marital status Unknown González 09/29/2017 Number of children Unknown 3 09/29/[address]: 615701128 Never smoker 09/29/[address]: 994524345 Never drinks alcohol 2017 Has the patient ever used illegal drugs? Unknown Has nev er used illegal drugs 09/29/2017 Allergies, Adverse Reactions, Alerts Substance Reaction Codes Entered Date Inactivated Date Status demerol RxNorm: 733365 09/29/2017 No Inactive Date Acti ve MORPHINE SULFATE RxNorm: 9624320 09/29/2017 No Inactive Da te Active CODEINE [...] Instructions isosorbide mononitrate 20 mg tablet RxNorm: 901637 Take 4 Tablet(s) Oral every day 80mg daily - managed by cardiology 05/06/2021 08/03/2021 Active isosorbide mononitrate 20 mg tablet RxNorm: 921709 Take 4 Tablet(s) Oral every day 80mg daily - managed by cardiology 05/06/2021 05/12/2021 Active she is out; called us for fill oxybutynin chloride 5 mg tablet RxNorm: 870381 Take 1 T ablet(s) Oral two times a day 04/21/2021 04/15/2022 Active amiodarone 100 mg tablet RxNorm: 862672 Take 1 Tablet(s ) Oral every day managed by cardiology 04/21/2021 04/15/2022 Active furosemide 40 mg tablet RxNorm: 474970 Take 1 Tablet(s) Oral every day manged by cardiology 04/21/2021 04/15/2022 Active gabapentin 100 mg capsule RxNorm: 481693 5 Capsule(s) O ral as directed 2 in am and 3 in martir 04/21/2021 11/16/2021 Active isosorbide mononitrate 20 mg tablet RxNorm: 597937 Take 4 Tablet(s) Oral every day 80mg daily - managed by cardiology 04/21/2021 05/06/2021 Inactive isosorbide mononitrate ER 60 mg tablet,extended release 24 h r RxNorm: 754756 TAKE 1 TABLET BY MOUTH ONCE DAILY 10/30/2020 01/27/2021 Inactive mupirocin 2 % topical ointment RxNorm: 456986 1 Applica tion Topical two times a day 10/24/2020 No Stop Date Active prednisone 20 mg tablet RxNorm: 190701 2 Tablet(s) Oral every day 0 10/24/2020 10/29/2020 Inactive lisinopril 20 mg tablet RxNorm: 419970 Take 1 tablet by mouth o nce daily 10/20/2020 07/16/2021 Active Augmentin 500 mg-125 mg tablet RxNorm: 928221 1 Tablet( s) Oral three times a day 08/19/2020 08/26/2020 Inactive gabapentin 100 mg capsule RxNorm: 248493 5 Capsule(s) O ral as directed 2 in am and 3 in martir 08/05/2020 03/03/2021 Inactive Zofran 4 mg tablet RxNorm: 792613 1 Tablet(s) Oral Q8 as needed 07/202008/16/2020 Inactive tizanidine 2 mg tablet RxNorm: 609353 2 Tablet(s) Oral three times a day as needed muscle spasms for muscle spasms 06/18/2020 06/18/2020 Inactive Duragesic 25 mcg/hr transdermal patch RxNorm: 558564 1 Patch Transdermal every 72 hours 06/18/2020 06/18/2020 Inactive carvedilol 25 mg tablet RxNorm: 194330 Take 1 tablet by mouth t wice daily 06/11/2020 06/05/2021 Active atorvastatin 20 mg tablet RxNorm: 684035 TAKE 1 TABLET BY MOUTH ONCE DAILY AT BEDTIME 06/11/2020 06/05/2021 Active Zofran 4 mg tablet RxNorm: 568287 1 Tablet(s) Oral Q8 as needed 05/11/2020 Inactive oxycodone-acetaminophen 5 mg-325 mg tablet RxNorm: 1403058 1 Tablet(s) Oral Every 4 hrs as needed 05/12/2020 05/11/2020 Inactive oxycodone-acetaminophen 5 mg-325 mg tablet RxNorm: 5293599 1 Tablet(s) Oral Every 6 hrs as needed 05/12/2020 05/12/2020 Inactive Zofran 4 mg tablet RxNorm: 176496 1 Tablet(s) Oral Q8 as needed 06/17/2020 Inactive tizanidine 2 mg tablet RxNorm: 610587 2 Tablet(s) Oral three times a day as needed muscle spasms for muscle spasms 05/07/2020 05/07/2020 Inactive tizanidine 2 mg tablet RxNorm: 274720 1 Tablet(s) Oral three times a day as needed muscle spasms for muscle spasms 05/05/2020 05/05/2020 Inactive tizanidine 2 mg tablet RxNorm: 196432 1 Tablet(s) Oral three times a day as needed muscle spasms for muscle spasms 02/07/2020 05/04/2020 Inactive Kenalog 40 mg/mL suspension for injection RxNorm: 7823013 4 Milliliter(s) Injection 02/07/2020 02/07/2020 Inactive dexamethasone 2 mg tablet RxNorm: 889554 2 Tablet(s) Oral every day 12/20/2019 12/25/2019 Inactive ProAir HFA 90 mcg/actuation aerosol inhaler RxNorm: 289836 2 Puff(s) Inhalation four times a day 12/20/2019 12/19/2019 Inactive Mucinex 1,200 mg tablet, extended release RxNorm: 025089 1 Tablet(s) Oral two times a day 12/20/2019 12/27/2019 Inactive ProAir HFA 90 mcg/actuation aerosol inhaler RxNorm: 105647 2 Puff(s) Inhalation four times a day 12/20/2019 12/20/2019 Inactive hydroxychloroquine 200 mg tablet RxNorm: 305451 Tablet( s) Oral 400mg BID x 1 day, then 200mg BID x 5 days 12/19/2019 04/21/2021 Inactive Vitamin D2 1,250 mcg (50,000 unit) capsule RxNorm: 2524816 1 Capsule(s) Oral once a week 11/02/2019 01/31/2020 Inactive cyanocobalamin (vit B-12) 1,000 mcg/mL injection solution Rx Norm: 897863 Milliliter(s) Injection 11/01/2019 11/01/2019 Inactive gabapentin 100 mg capsule RxNorm: 203491 1 Capsule(s) Oral thre e times a day 09/27/2019 04/24/2020 Inactive diclofenac 1 % topical gel RxNorm: 043651 2 Gram(s) Top ical four times a day apply to low back and other painful joints 09/27/2019 2020 Inact chepe Kenalog 40 mg/mL suspension for injection RxNorm: 0362256 2 Milliliter(s) Injection 1mL right and 1mL left SI joint 09/27/2019 09/27/2019 Inacti ve carvedilol 25 mg tablet RxNorm: 488577 TAKE 1 TABLET BY MOUTH T WICE DAILY 09/21/2019 06/10/2020 Inactive isosorbide mononitrate ER 60 mg tablet,extended release 24 h r RxNorm: 109272 TAKE 1 TABLET BY MOUTH ONCE DAILY 07/26/2019 07/26/2019 Inactive lisinopril 20 mg tablet RxNorm: 074978 TAKE 1 TABLET BY MOUTH O NCE DAILY 07/26/2019 07/20/2020 Inactive amoxicillin 500 mg capsule RxNorm: 389022 1 Capsule(s) Oral thr ee times a day 07/26/2019 08/02/2019 Inactive amoxicillin 500 mg capsule RxNorm: 341860 1 Capsule(s) Oral thr ee times a day 07/26/2019 07/25/2019 Inactive furosemide 20 mg tablet RxNorm: 142852 1 Tablet(s) Oral every day 0 07/26/2019 07/20/2020 Inactive isosorbide mononitrate ER 60 mg tablet,extended release 24 h r RxNorm: 697531 TAKE 1 TABLET BY MOUTH ONCE DAILY 07/16/2019 07/25/2019 Inactive lisinopril 20 mg tablet RxNorm: 963005 TAKE 1 TABLET BY MOUTH O NCE DAILY 07/16/2019 07/25/2019 Inactive atorvastatin 20 mg tablet RxNorm: 089412 TAKE 1 TABLET BY MOUTH EVERY DAY AT BEDTIME 05/21/2019 05/14/2020 Inactive cyclobenzaprine 5 mg tablet RxNorm: 593547 1 Tablet(s) PO TID as needed muscle spasms 10/19/2018 10/23/2018 Inactive gabapentin 100 mg capsule RxNorm: 681216 1 Capsule(s) PO TID as needed for pain 10/19/2018 11/17/2018 Inactive Zantac 150 mg tablet RxNorm: 445889 1 Tablet(s) PO BID 07/21/201809/2018 Inactive lisinopril 20 mg tablet RxNorm: 978520 1 Tablet(s) PO daily 019 07/15/2019 Inactive ranitidine 150 mg capsule RxNorm: 869712 1 Capsule(s) PO BID 201807/21/2018 Inactive carvedilol 25 mg tablet RxNorm: 718237 1 Tablet(s) PO BID 07/21/2018 07/15/2019 Inactive furosemide 20 mg tablet RxNorm: 736483 1 Tablet(s) PO daily 019 07/15/2019 Inactive isosorbide mononitrate ER 60 mg tablet,extended release 24 h r RxNorm: 254436 1 Tablet(s) PO daily 06/19/2018 06/13/2019 Inactive ranitidine 150 mg capsule RxNorm: 041133 1 Capsule(s) PO BID 201707/20/2018 Inactive furosemide 20 mg tablet RxNorm: 321426 1 Tablet(s) PO daily 07/20/2018 Inactive carvedilol 25 mg tablet RxNorm: 109377 1 Tablet(s) PO BID 04/18/2018 07/20/2018 Inactive lisinopril 20 mg tablet RxNorm: 959635 1 Tablet(s) PO daily 07/20/2018 Inactive isosorbide mononitrate ER 60 mg tablet,extended release 24 h r RxNorm: 306900 1 Tablet(s) PO daily 04/18/2018 06/18/2018 Inactive atorvastatin 20 mg tablet RxNorm: 154640 1 Tablet(s) PO QHS 04/12/2019 Inactive isosorbide mononitrate ER 60 mg tablet,extended release 24 h r RxNorm: 395461 1 Tablet(s) PO daily 03/21/2018 04/17/2018 Inactive carvedilol 25 mg tablet RxNorm: 283459 1 Tablet(s) PO BID 03/21/2018 04/17/2018 Inactive atorvastatin 20 mg tablet RxNorm: 769163 1 Tablet(s) PO QHS 018 04/17/2018 Inactive furosemide 20 mg tablet RxNorm: 105522 1 Tablet(s) PO daily 04/17/2018 Inactive atorvastatin 20 mg tablet RxNorm: 317331 1 Tablet(s) PO QHS 03/15/2018 Inactive Keflex 500 mg capsule RxNorm: 101792 1 Capsule(s) PO QID 2018 0 01/31/2018 Inactive lisinopril 20 mg tablet RxNorm: 063609 1 Tablet(s) PO daily 018 04/17/2018 Inactive lisinopril 20 mg tablet RxNorm: 368036 1 Tablet(s) PO daily 018 01/17/2018 Inactive Eliquis 5 mg tablet RxNorm: 6599484 1 Tablet(s) PO BID 09/29/2017 Active ferrous sulfate 325 mg (65 mg iron) tablet RxNorm: 347572 1 Tab let(s) PO BID 09/29/2017 Active Cartia XT 180 mg capsule,extended release RxNorm: 934793 1 Caps ule(s) PO daily 09/29/2017 Active Multaq 400 mg tablet RxNorm: 566515 1 Tablet(s) PO BID 09/29/201711/2020 Inactive alprazolam 0.25 mg tablet RxNorm: 739418 1 Tablet(s) PO Q6 as neede d 09/29/2017 04/21/2021 Inactive furosemide 20 mg tablet RxNorm: 217083 1 Tablet(s) PO daily 03/15/2018 Inactive atorvastatin 20 mg tablet RxNorm: 739618 1 Tablet(s) PO QHS 02/16/2018 Inactive lisinopril 20 mg tablet RxNorm: 984931 1 Tablet(s) PO daily 01/12/2018 Inactive ranitidine 150 mg capsule RxNorm: 659639 1 Capsule(s) PO BID 201705/11/2018 Inactive isosorbide mononitrate ER 60 mg tablet,extended release 24 h r RxNorm: 632873 1 Tablet(s) PO daily 03/21/2018 03/20/2018 Inactive carvedilol 25 mg tablet RxNorm: 596883 1 Tablet(s) PO BID 03/21/2018 03/20/2018 Inactive Medication Administered Medication Codes Instructions Start Date Status Kenalog 40 mg/mL suspension for injection RxNorm: 0860756 4Milli liter 02/07/2020 No longer Active cyanocobalamin (vit B-12) 1,000 mcg/mL injection solution Rx Norm: 212102 Milliliter 11/01/2019 No longer Active Kenalog 40 mg/mL suspension for injection RxNorm: 9074597 2Milli liter 09/27/2019 No longer Active Immunizations Vaccine Codes Dose Date Status Covid-19 CVX: 08/23/2020 Covid-19 CVX: 07/25/2020 Tetanus, Diptheria, Pertussis CVX: 08/15/2015 Tetanus/Diptheria CVX: 08/15/2015 Results Observation Observation Code Item Item Code Result Date S [facility] Location HEPATITIS C (HCV) ANTIBODY F171 Hepatitis [...] pg 05/05/20 Unknown Cbc With Differential Ord2 Robertson% 7.3 % 05/05/20 Unknown Cbc With Differential Ord2 MCHC 31.3 pg 05/05/20 Unknown Cbc With Differential Ord2 Eos% 3.5 % 05/05/20 Unknown Cbc With Differential Ord2 PLT 259 K/ul 05/05/20 Unknown Cbc With Differential Ord2 Baso% 0.5 % 05/05/20 Unknown Cbc With Differential Ord2 RDW 15.4 % 05/05/20 Unknown Cbc With Differential Ord2 Neut ABS# 4.15 K/ul 05/05/20 Unknown Cbc With Differential Ord2 Lymph ABS# 1.68 K/ul 020 Unknown Cbc With Differential Ord2 Robertson ABS# 0.5 K/ul 05/05/20 20 Unknown Cbc With Differential Ord2 Eos ABS# 0.2 K/ul 05/05/20 20 Unknown Cbc With Differential Ord2 Baso ABS# 0.0 K/ul 05/05/20 20 Unknown Comp Metabolic Vkr774 NA 143 mEq/L 05/05/2020 Unkn own Comp Metabolic Utx861 K 3.8 mEq/L 05/05/2020 Unkn own Comp Metabolic Trn657 CL 107 mEq/L 05/05/2020 Unkn own Comp Metabolic Shn486 CO2 27.0 mEq/L 05/05/2020 Unk nown Comp Metabolic Hlb003 ANION GAP 13 05/05/2020 Unkn own Comp Metabolic Ybs508 GLUCOSE 92 mg/dL 05/05/2020 Unkn own Comp Metabolic Hjv405 Creat 0.9 mg/dL 05/05/2020 Unkn own Comp Metabolic Eut190 eGFR 62 ml/min/1.73m2 05/05/20 20 Unknown Comp Metabolic Gnt321 BUN 17 mg/dL 05/05/2020 Unkn own Comp Metabolic Srg023 B/C Ratio 18.1 Ratio 05/05/2020 Unk nown Comp Metabolic Mfj335 CALCIUM 8.9 mg/dL 05/05/2020 Unkn own Comp Metabolic Dui677 ALK PHOS 70 U/L 05/05/2020 Unkn own Comp Metabolic Knw374 AST(SGOT) 9 U/L 05/05/2020 Unkn own Comp Metabolic Jov905 ALT(SGPT) 10 U/L 05/05/2020 Unkn own Comp Metabolic Adi585 BILI T 0.7 mg/dL 05/05/2020 Unkn own Comp Metabolic Mlg011 ALBUMIN 4.0 g/dL 05/05/2020 Unkn own Comp Metabolic Ymv103 TPRO 6.1 g/dL 05/05/2020 Unkn own Comp Metabolic Rge060 GLOB 2.1 g/dL 05/05/2020 Unkn own Comp Metabolic Noy573 A/G Ratio 1.9 Ratio 05/05/2020 Unkn own Comp Metabolic Xco977 Osmo 286 mOsmo 05/05/2020 Unkn own Tsh Ord6 TSH (3rd IS) 1.60 uIU/mL 05/05/2020 Unkn own %Hba1C Ona048 % HbA1c 64146-0 5.9 % 05/05/2020 Unknown %Hba1C Ccr639 Gluc Ave 123 mg/dL 05/05/2020 Unknown Lipid [...] 04/10/20 18 Unknown Cbc With Differential Ord2 Robertson% 11.6 % 04/10/20 18 Unknown Cbc With [...] K/ul 018 Unknown Cbc With Differential Ord2 Robertson ABS# 0.6 K/ul 04/10/20 18 Unknown Cbc With Differential Ord2 Eos ABS# 0.1 K/ul 04/10/20 18 Unknown Cbc With Differential Ord2 Baso ABS# 0.0 K/ul 04/10/20 18 Unknown %Hba1C Lqs546 % HbA1c 89694-8 5.4 % 04/10/2018 Unknown %Hba1C Wfl243 Gluc Ave 108 mg/dL 04/10/2018 Unknown Tsh Ord6 TSH (3rd IS) 3.65 uIU/mL 03/01/2018 Unkn own Lipid Ord30 CHOL 137 mg/dL 03/01/2018 Unknown Lipid Ord30 HDL 50.0 mg/dl 03/01/2018 Unknown Lipid Ord30 TRIG 75 mg/dL 03/01/2018 Unknown Lipid Ord30 LDL 72 mg/dL 03/01/2018 Unknown Lipid Ord30 C/HDL 2.7 Ratio 03/01/2018 Unknown Comp Metabolic Riq439 NA 144 mEq/L 03/01/2018 Unkn own Comp Metabolic Snr781 K 3.6 mEq/L 03/01/2018 Unkn own Comp Metabolic Rnd813 CL 111 mEq/L 03/01/2018 Unkn own Comp Metabolic Suf502 CO2 23.0 mEq/L 03/01/2018 Unk nown Comp Metabolic Rbn422 ANION GAP 14 03/01/2018 Unkn own Comp Metabolic Xah075 GLUCOSE 103 mg/dL 03/01/2018 Unkn own Comp Metabolic Shz568 Creat 0.9 mg/dL 03/01/2018 Unkn own Comp Metabolic Yeq577 eGFR 67 ml/min/1.73m2 03/01/20 18 Unknown Comp Metabolic Mqn374 BUN 15 mg/dL 03/01/2018 Unkn own Comp Metabolic Btd780 B/C Ratio 16.9 Ratio 03/01/2018 Unk nown Comp Metabolic Pht003 CALCIUM 9.4 mg/dL 03/01/2018 Unkn own Comp Metabolic Ukp177 ALK PHOS 85 U/L 03/01/2018 Unkn own Comp Metabolic Kqx011 AST(SGOT) 14 U/L 03/01/2018 Unkn own Comp Metabolic Mmx763 ALT(SGPT) 12 U/L 03/01/2018 Unkn own Comp Metabolic Mun579 BILI T 0.9 mg/dL 03/01/2018 Unkn own Comp Metabolic Yre095 ALBUMIN 4.2 g/dL 03/01/2018 Unkn own Comp Metabolic Bov086 TPRO 6.5 g/dL 03/01/2018 Unkn own Comp Metabolic Zxo345 GLOB 2.3 g/dL 03/01/2018 Unkn own Comp Metabolic Oby107 A/G Ratio 1.8 Ratio 03/01/2018 Unkn own Comp Metabolic Hpy196 Osmo 288 mOsmo 03/01/2018 Unkn own Culture Urine [id number] URINE CULTURE SEE NOTES 01/30/2018 Unknown Culture Urine [id number] Continued Results 01/31/20 18 Unknown Urine Culture Ucult Complete >100,000 col/ml aerobi c growth sent to ref lab 01/26/2018 Unknown %Hba1C Zgj344 % HbA1c 43758-7 5.6 % 09/30/2017 Unknown %Hba1C Wka417 Gluc Ave 114 mg/dL 09/30/2017 Unknown UA Specific [place] 1.030 DateTime(Free Text in ) Unknown UA [...] VISIT CPT-4: G0439 05/05/2020 DRAIN/INJECT JOINT/BURSA CPT-4: 97552 05/05/2020 TRIAMCINOLONE ACET INJ NOS 10 mg CPT-4: J3301 020 DEPRESSION SCREEN ANNUAL CPT-4: G0444 05/05/2020 INJ TRIGGER POINT 1/2 MUSCL CPT-4: 65054 02/07/2020 INJECT TRIGGER POINTS 3/> CPT-4: 13619 02/07/2020 TRIAMCINOLONE ACET INJ NOS 10 mg CPT-4: J3301 020 THER/PROPH/DIAG INJ SC/IM CPT-4: 75263 11/01/2019 VITAMIN B12 INJECTION 1000 mcg CPT-4: J3420 0 TRIAMCINOLONE ACET INJ NOS 10 mg CPT-4: J3301 020 DRAIN/INJECT JOINT/BURSA CPT-4: 62976 09/27/2019 PPPS, SUBSEQ VISIT CPT-4: G0439 05/02/2019 URINALYSIS NONAUTO W/O SCOPE CPT-4: 07252 2018 Vital Signs Date Vital 04/21/2021 Blood Pressure 1: 134/80 Code: 8480-6 BMI: 38.1 Code: 00131-3 Heart Rate 1: 65 bpm Height: 5'8" Code: 8302-2 Respiratory Rate: 18 bpm SpO2: 98% Temperature: 36.8 (C) / 98.2 (F) Weight: 247 lbs Code: 06215-2 10/24/2020 Blood Pressure 1: 136/84 Code: 8480-6 BMI: 37.3 Code: 54495-9 Heart Rate 1: 85 bpm Height: 5'8" Code: 8302-2 SpO2: 97% Temperature: 3 5.8 (C) / 96.5 (F) Weight: 242 lbs Code: 11822-3 08/19/2020 Blood Pressure 1: 108/70 Code: 8480-6 Heart Rate 1: 73 bpm Height: 5'8" Code: 8302-2 SpO2: 93% Temperature: 36.8 (C) / 98.2 (F) Weight: Code: 13202-4 05/05/2020 Blood Pressure 1: 146/74 Code: 8480-6 BMI: 38.0 Code: 57538-9 Heart Rate 1: 83 bpm Height: 5'8" Code: 8302-2 SpO2: 98% Temperature: 3 6.3 (C) / 97.4 (F) Weight: 246 lbs Code: 53366-2 02/07/2020 Blood Pressure 1: 146/88 Code: 8480-6 BMI: 37.7 Code: 27486-4 Heart Rate 1: 89 bpm Height: 5'8" Code: 8302-2 Respiratory Rate: 17 bpm SpO2: 98% Temperature: 36.4 (C) / 97.6 (F) Weight: 244 lbs Code: 91634-1 01/02/2020 Height: Code: 8302-2 Weight: Code: 294 63-7 12/19/2019 Height: Code: 8302-2 Weight: Code: 294 63-7 11/01/2019 Blood Pressure 1: 126/68 Code: 8480-6 BMI: 36.9 Code: 35936-0 Heart Rate 1: 87 bpm Height: 5'8" Code: 8302-2 Respiratory Rate: 15 bpm SpO2: 96% Temperature: 36.6 (C) / 97.8 (F) Weight: 239 lbs Code: 55916-7 09/27/2019 Blood Pressure 1: 120/74 Code: 8480-6 BMI: 37.3 Code: 72071-7 Heart Rate 1: 80 bpm Height: 5'8" Code: 8302-2 Respiratory Rate: 16 bpm SpO2: 97% Temperature: 36.5 (C) / 97.7 (F) Weight: 242 lbs Code: 97703-4 05/02/2019 Blood Pressure 1: 128/70 Code: 8480-6 BMI: 37.8 Code: 31058-0 Heart Rate 1: 86 bpm Height: 5'8" Code: 8302-2 SpO2: 98% Weight: 245 lb s Code: 52777-7 10/19/2018 BMI: 37.7 Code: 24396-7 Heart Rate 1: 79 bpm Hei ght: 5'8" Code: 8302-2 SpO2: 99% Weight: 244 lbs Code: 01923 -7 2018 Blood Pressure 1: 132/64 Code: 8480-6 BMI: 36.7 Code: 07793-3 Heart Rate 1: 62 bpm Height: 5'8" Code: 8302-2 SpO2: 96% Weight: 238 lb s Code: 63561-0 09/29/2017 Blood Pressure 1: 124/76 Code: 8480-6 BMI: 36.8 Code: 64059-7 Heart Rate 1: 83 bpm Height: 5'8" Code: 8302-2 SpO2: 98% Weight: 238 lb s 8 oz Code: 58451-7 Functional Status No Functional Status data Reason [...] 09/29/2017 Encounters Encounter Performer Location Codes Date 18896 EST. PATIENT, LEVEL IV Diagnosis: Essential (primary) hypertension[ICD10: I10] Diagnosis: Mixed urge and stress incontinence[ICD10: N39.46] Diagnosis: Type 2 diabetes mellitus without complications[ICD10: E11.9] [facility] CPT-4: 11768 04/21/2021 ([id number]) 19563 EST. PATIENT, LEVEL III Diagnosis: Weakness[ICD10: R53.1] Diagnosis: Limited mobility[ICD10: Z74.09] Diagnosis: Gait instability[ICD10: R26.81] [facility] CPT-4: 48433 10/24/2020 ([id number]) 96699 EST. PATIENT, LEVEL IV Diagnosis: Urinary tract infection, site not specified[ICD10: N39.0] Diagnosis: Low back pain[ICD10: M54.5] Diagnosis: Left shoulder pain[ICD10: M25.512] Hayley wise MD, [facility] CPT-4: 09953 08/19/2020 ([id number]) 48733 EST. PATIENT, LEVEL IV Diagnosis: Neck pain on right side[ICD10: M54.2] Diagnosis: Acute right-sided thoracic back pain[ICD10: M54.6] Diagnosis: Acute bilateral low back pain without sciatica[ICD10: M54.5] Diagnosis: Trigger point of thoracic region[ICD10: M54.6] Diagnosis: Trigger point with back pain[ICD10: M54.9] Diagnosis: Essential (primary) hypertension[ICD10: I10] Diagnosis: COVID-19[ICD10: U07.1] Katelynn Nance MD, [facility] CPT -4: 87910 02/07/2020 [id number] EST. PATIENT, LEVEL II Diagnosis: Cough[ICD10: R05] Diagnosis: Hospital discharge follow-up[ICD10: Z09] Diagnosis: COVID-19[ICD10: U07.1] Martha Nance MD, [facility] CPT -4: 01302 01/02/2020 [id number] EST. PATIENT, LEVEL III Diagnosis: Cough[ICD10: R05] Diagnosis: Acute laryngopharyngitis[ICD10: J06.0] Martha Chanel MD, [facility] CPT-4: 92882 12/19/2019 ([id number]) 52988 EST. PATIENT, LEVEL IV Diagnosis: Essential (primary) hypertension[ICD10: I10] Diagnosis: Idiopathic progressive neuropathy[ICD10: G60.3] Diagnosis: Paroxysmal atrial fibrillation[ICD10: I48.0] Diagnosis: Vitamin D deficiency[ICD10: E55.9] Diagnosis: Vitamin B12 deficiency anemia due to intrinsic factor deficiency[ICD10: D51.0] Katelynn Nance MD, [facility] CPT-4: 94216 11/01/2019 ([id number]) 91943 EST. PATIENT, LEVEL IV Diagnosis: Essential (primary) hypertension[ICD10: I10] Diagnosis: Type 2 diabetes mellitus without complications[ICD10: E11.9] Diagnosis: Paroxysmal atrial fibrillation[ICD10: I48.0] Diagnosis: Idiopathic progressive neuropathy[ICD10: G60.3] Diagnosis: Sacroiliac joint pain[ICD10: M53.3] Diagnosis: Other dorsalgia[ICD10: M54.89] Katelynn Nance MD, [facility] CPT-4: 98913 09/27/2019 [id number] EST. PATIENT, LEVEL III Diagnosis: Cervicalgia[ICD10: M54.2] Martha Nance MD, [facility] CPT-4: 89081 10/19/2018 ([id number]) 61892 EST. PATIENT, LEVEL IV Diagnosis: Essential (primary) hypertension[ICD10: I10] Diagnosis: Low back pain[ICD10: M54.5] Diagnosis: Dysuria[ICD10: R30.0] Diagnosis: Personal history of urinary calculi[ICD10: Z87.442] Diagnosis: Paroxysmal atrial fibrillation[ICD10: I48.0] Diagnosis: Urinary tract infection, site not specified[ICD10: N39.0] Katelynn Nance MD, [facility] CPT-4: 23664 2018 OFFICE VISIT, NEW - LEVEL 3 Diagnosis: Essential (primary) hypertension[ICD10: I10] Diagnosis: Type 2 diabetes mellitus without complications[ICD10: E11.9] Diagnosis: Low back pain[ICD10: M54.5] Diagnosis: Paroxysmal atrial fibrillation[ICD10: I48.0] Hayley Nance MD, [facility] CPT-4: 09297 09/29/2017 Plan of Care Planned Activity Notes [...] Diabetes Completed 04/21/2021 [facility] [phone] [facility] [place] ([facility] min) Moderate 10/24/2020 Patient Education: Patient Medication Summary Completed 10/24/2020 [facility]ment[facility] [phone] [facility] [place] (30 min) Complex 10/03/2020 Visit Plan: UTI [...] not help. 08/19/2020 App[facility] [phone] [phone] [place] (30 min) Complex 08/19/2020 Patient Education: [...] injections 05/05/2020 Appointment: Hayley Metcalf WPtel: [phone] [phone] [facility] - Annual Wellness Visit 04/16 Patient Education: [...] relaxer. 02/07/2020 Appointment: Katelynn Nance WPtel: [phone] [facility] (15 min) Moderate 02/07/2020 Patient Education: Patient [...] medical condition. 01/02/2020 Appointment: Martha Linn WPtel: [phone] [facility] TeleHealth 01/02/2020 Patient Education: Patient Medication Summary Completed 01/02/2020 Visit Plan: Cough, congestion, some dysp kourtney - known exposure to COVID-19 - pt tested for COVID-19 today awaiting results - Discussed with Dr. Nance - will order hydroxychloroquine and chest x-ray - will treat as indicated 12/19/2019 Appointment: Martha Linn WPtel: [facility] TeleHealth 12/19/2019 Patient Education: Patient Medication Summary Completed [...] Magnesium Pending 020 Appointment: Katelynn Nance WPtel: [address] [place], [place] [id number] (15 min) Moderate 09/27/2019 Patient Education: Patient Medication Summary Completed 09/27/2019 Patient Education: Diabetes Completed 09/27/2019 Care Plan: Cbc With Differential Pending 09/27/2019 Care Plan: Comp Metabolic Pending Care Plan: %Hba1C LOINC : 21217-7 Pending 09/27/2019 Care Plan: Tsh Pending 09/27/2019 Care Plan: B12 Pending 09/27/2019 Care Plan: Folate Pending 09/27/2019 Patient Education: Patient Medication Summary Completed 05/23/2019 Care Plan: Comp Metabolic Pending Care Plan: Cbc With Differential Pending 05/04/2019 Care Plan: %Hba1C LOINC : 45554-4 Pending 05/04/2019 Care Plan: Tsh Pending 05/04/2019 [...] labs 05/02/2019 Appointment: [facility] [phone] [facility] [facility] - Annual Wellness Visit 04/15 Patient Education: Patient Medication Summary Completed 05/02/2019 Appointment: Hayley Metcalf WPtel: [phone] [phone] [facility] - Annual Wellness Visit 12/2018 Care Plan: X-RAY EXAM NECK SPINE 2-3 VW LOINC : 52678-7 Pending 10/23/2018 Visit Plan: Neck Pain- pt to start with aspercreme or biofreeze to neck three times daily and start neck exercises daily. 10/19/2018 Appointment: Martha [place] WPtel: [phone] [id number] (15 min) Moderate 10/19/2018 Patient [...] ordered - keflex rx sent to [facility]. 2018 Appointment: Katelynn Nance WPtel: [facility] (15 min) Moderate 2018 Patient Education: Patient Medication Summary Completed 2018 Patient Education: Back Pain Completed 2018 Care Plan: X-RAY EXAM L-S SPINE 2/3 VWS LOINC : [id number] Pending 2018 Visit Plan: Hypertension - well [...] Layne 09/29/2017 App[facility]: [id number] [place] New Patient 09/29/2017 Patient Education: [...] ordered - keflex rx sent to [facility]. 2018 RECOMMEND PROBIOTIC TWICE DAILY FOR [...]
--- OUTSIDE RECORDS SUMMARY | 2021-05-24 14:24 | XMS REPORT | CCD ---
Author Author Brigitte Metcalf Organization Katelynn Nance MD, [facility] Address [address] [place] [address] Phone Care Team Providers Care Foster Care Case Manager Name Role Phone Katelynn Nance PP Unavailable CCM Unavailable Summary Purpose Interface Exchange Insurance Providers Payer name Policy type / Coverage type Covered constitution party ID Effective Begin Date Effective End Date [facility] Commercial Insurance [id number] Un known Family history Father Diagnosis Age At Onset Colon cancer Unknown Mother Diagnosis Age At Onset Diabetes mellitus Type 2 Unknown Hypertension Unknown Alcoholism Unknown Hyperlipidemia Unknown Social History Social History Element Codes Description Effective Dates Marital status Unknown González 09/29/2017 Number of children Unknown 3 09/29/[address]: 233904554 Never smoker 09/29/[address]: 768136431 Never drinks alcohol 2017 Has the patient ever used illegal drugs? Unknown Has nev er used illegal drugs 09/29/2017 Allergies, Adverse Reactions, Alerts Substance Reaction Codes Entered Date Inactivated Date Status demerol RxNorm: 300764 09/29/2017 No Inactive Date Acti ve MORPHINE SULFATE RxNorm: 5796168 09/29/2017 No Inactive Da te Active CODEINE [...] Instructions isosorbide mononitrate 20 mg tablet RxNorm: 789296 Take 4 Tablet(s) Oral every day 80mg daily - managed by cardiology 05/06/2021 05/12/2021 Active she is out; called us for fill oxybutynin chloride 5 mg tablet RxNorm: 803591 Take 1 T ablet(s) Oral two times a day 04/21/2021 04/15/2022 Active amiodarone 100 mg tablet RxNorm: 962580 Take 1 Tablet(s ) Oral every day managed by cardiology 04/21/2021 04/15/2022 Active furosemide 40 mg tablet RxNorm: 626471 Take 1 Tablet(s) Oral every day manged by cardiology 04/21/2021 04/15/2022 Active gabapentin 100 mg capsule RxNorm: 987994 5 Capsule(s) O ral as directed 2 in am and 3 in martir 04/21/2021 11/16/2021 Active isosorbide mononitrate 20 mg tablet RxNorm: 827072 Take 4 Tablet(s) Oral every day 80mg daily - managed by cardiology 04/21/2021 05/06/2021 Inactive isosorbide mononitrate ER 60 mg tablet,extended release 24 h r RxNorm: 772882 TAKE 1 TABLET BY MOUTH ONCE DAILY 10/30/2020 01/27/2021 Inactive mupirocin 2 % topical ointment RxNorm: 293458 1 Applica tion Topical two times a day 10/24/2020 No Stop Date Active prednisone 20 mg tablet RxNorm: 749501 2 Tablet(s) Oral every day 0 10/24/2020 10/29/2020 Inactive lisinopril 20 mg tablet RxNorm: 104046 Take 1 tablet by mouth o nce daily 10/20/2020 07/16/2021 Active Augmentin 500 mg-125 mg tablet RxNorm: 387927 1 Tablet( s) Oral three times a day 08/19/2020 08/26/2020 Inactive gabapentin 100 mg capsule RxNorm: 732051 5 Capsule(s) O ral as directed 2 in am and 3 in martir 08/05/2020 03/03/2021 Inactive Zofran 4 mg tablet RxNorm: 674776 1 Tablet(s) Oral Q8 as needed 07/202008/16/2020 Inactive tizanidine 2 mg tablet RxNorm: 161892 2 Tablet(s) Oral three times a day as needed muscle spasms for muscle spasms 06/18/2020 06/18/2020 Inactive Duragesic 25 mcg/hr transdermal patch RxNorm: 653143 1 Patch Transdermal every 72 hours 06/18/2020 06/18/2020 Inactive carvedilol 25 mg tablet RxNorm: 063431 Take 1 tablet by mouth t wice daily 06/11/2020 06/05/2021 Active atorvastatin 20 mg tablet RxNorm: 044601 TAKE 1 TABLET BY MOUTH ONCE DAILY AT BEDTIME 06/11/2020 06/05/2021 Active Zofran 4 mg tablet RxNorm: 115960 1 Tablet(s) Oral Q8 as needed 05/11/2020 Inactive oxycodone-acetaminophen 5 mg-325 mg tablet RxNorm: 6197419 1 Tablet(s) Oral Every 4 hrs as needed 05/12/2020 05/11/2020 Inactive oxycodone-acetaminophen 5 mg-325 mg tablet RxNorm: 1272164 1 Tablet(s) Oral Every 6 hrs as needed 05/12/2020 05/12/2020 Inactive Zofran 4 mg tablet RxNorm: 747961 1 Tablet(s) Oral Q8 as needed 06/17/2020 Inactive tizanidine 2 mg tablet RxNorm: 645127 2 Tablet(s) Oral three times a day as needed muscle spasms for muscle spasms 05/07/2020 05/07/2020 Inactive tizanidine 2 mg tablet RxNorm: 966818 1 Tablet(s) Oral three times a day as needed muscle spasms for muscle spasms 05/05/2020 05/05/2020 Inactive tizanidine 2 mg tablet RxNorm: 598662 1 Tablet(s) Oral three times a day as needed muscle spasms for muscle spasms 02/07/2020 05/04/2020 Inactive Kenalog 40 mg/mL suspension for injection RxNorm: 1674703 4 Milliliter(s) Injection 02/07/2020 02/07/2020 Inactive dexamethasone 2 mg tablet RxNorm: 916259 2 Tablet(s) Oral every day 12/20/2019 12/25/2019 Inactive ProAir HFA 90 mcg/actuation aerosol inhaler RxNorm: 819635 2 Puff(s) Inhalation four times a day 12/20/2019 12/19/2019 Inactive Mucinex 1,200 mg tablet, extended release RxNorm: 727998 1 Tablet(s) Oral two times a day 12/20/2019 12/27/2019 Inactive ProAir HFA 90 mcg/actuation aerosol inhaler RxNorm: 602107 2 Puff(s) Inhalation four times a day 12/20/2019 12/20/2019 Inactive hydroxychloroquine 200 mg tablet RxNorm: 855913 Tablet( s) Oral 400mg BID x 1 day, then 200mg BID x 5 days 12/19/2019 04/21/2021 Inactive Vitamin D2 1,250 mcg (50,000 unit) capsule RxNorm: 9762030 1 Capsule(s) Oral once a week 11/02/2019 01/31/2020 Inactive cyanocobalamin (vit B-12) 1,000 mcg/mL injection solution Rx Norm: 766362 Milliliter(s) Injection 11/01/2019 11/01/2019 Inactive gabapentin 100 mg capsule RxNorm: 566284 1 Capsule(s) Oral thre e times a day 09/27/2019 04/24/2020 Inactive diclofenac 1 % topical gel RxNorm: 592913 2 Gram(s) Top ical four times a day apply to low back and other painful joints 09/27/2019 2020 Inact chepe Kenalog 40 mg/mL suspension for injection RxNorm: 6120815 2 Milliliter(s) Injection 1mL right and 1mL left SI joint 09/27/2019 09/27/2019 Inacti ve carvedilol 25 mg tablet RxNorm: 770227 TAKE 1 TABLET BY MOUTH T WICE DAILY 09/21/2019 06/10/2020 Inactive isosorbide mononitrate ER 60 mg tablet,extended release 24 h r RxNorm: 874252 TAKE 1 TABLET BY MOUTH ONCE DAILY 07/26/2019 07/26/2019 Inactive lisinopril 20 mg tablet RxNorm: 957424 TAKE 1 TABLET BY MOUTH O NCE DAILY 07/26/2019 07/20/2020 Inactive amoxicillin 500 mg capsule RxNorm: 158319 1 Capsule(s) Oral thr ee times a day 07/26/2019 08/02/2019 Inactive amoxicillin 500 mg capsule RxNorm: 269511 1 Capsule(s) Oral thr ee times a day 07/26/2019 07/25/2019 Inactive furosemide 20 mg tablet RxNorm: 145240 1 Tablet(s) Oral every day 0 07/26/2019 07/20/2020 Inactive isosorbide mononitrate ER 60 mg tablet,extended release 24 h r RxNorm: 852525 TAKE 1 TABLET BY MOUTH ONCE DAILY 07/16/2019 07/25/2019 Inactive lisinopril 20 mg tablet RxNorm: 383943 TAKE 1 TABLET BY MOUTH O NCE DAILY 07/16/2019 07/25/2019 Inactive atorvastatin 20 mg tablet RxNorm: 189264 TAKE 1 TABLET BY MOUTH EVERY DAY AT BEDTIME 05/21/2019 05/14/2020 Inactive cyclobenzaprine 5 mg tablet RxNorm: 147261 1 Tablet(s) PO TID as needed muscle spasms 10/19/2018 10/23/2018 Inactive gabapentin 100 mg capsule RxNorm: 792660 1 Capsule(s) PO TID as needed for pain 10/19/2018 11/17/2018 Inactive Zantac 150 mg tablet RxNorm: 064543 1 Tablet(s) PO BID 07/21/201809/2018 Inactive lisinopril 20 mg tablet RxNorm: 010321 1 Tablet(s) PO daily 019 07/15/2019 Inactive ranitidine 150 mg capsule RxNorm: 304113 1 Capsule(s) PO BID 201807/21/2018 Inactive carvedilol 25 mg tablet RxNorm: 896362 1 Tablet(s) PO BID 07/21/2018 07/15/2019 Inactive furosemide 20 mg tablet RxNorm: 090270 1 Tablet(s) PO daily 019 07/15/2019 Inactive isosorbide mononitrate ER 60 mg tablet,extended release 24 h r RxNorm: 549510 1 Tablet(s) PO daily 06/19/2018 06/13/2019 Inactive ranitidine 150 mg capsule RxNorm: 083354 1 Capsule(s) PO BID 201707/20/2018 Inactive furosemide 20 mg tablet RxNorm: 524724 1 Tablet(s) PO daily 07/20/2018 Inactive carvedilol 25 mg tablet RxNorm: 493790 1 Tablet(s) PO BID 04/18/2018 07/20/2018 Inactive lisinopril 20 mg tablet RxNorm: 384663 1 Tablet(s) PO daily 07/20/2018 Inactive isosorbide mononitrate ER 60 mg tablet,extended release 24 h r RxNorm: 763261 1 Tablet(s) PO daily 04/18/2018 06/18/2018 Inactive atorvastatin 20 mg tablet RxNorm: 984540 1 Tablet(s) PO QHS 04/12/2019 Inactive isosorbide mononitrate ER 60 mg tablet,extended release 24 h r RxNorm: 182645 1 Tablet(s) PO daily 03/21/2018 04/17/2018 Inactive carvedilol 25 mg tablet RxNorm: 891352 1 Tablet(s) PO BID 03/21/2018 04/17/2018 Inactive atorvastatin 20 mg tablet RxNorm: 737177 1 Tablet(s) PO QHS 04/17/2018 Inactive furosemide 20 mg tablet RxNorm: 747545 1 Tablet(s) PO daily 04/17/2018 Inactive atorvastatin 20 mg tablet RxNorm: 983846 1 Tablet(s) PO QHS 018 03/15/2018 Inactive Keflex 500 mg capsule RxNorm: 081679 1 Capsule(s) PO QID 2018 0 01/31/2018 Inactive lisinopril 20 mg tablet RxNorm: 213972 1 Tablet(s) PO daily 018 04/17/2018 Inactive lisinopril 20 mg tablet RxNorm: 000802 1 Tablet(s) PO daily 018 01/17/2018 Inactive Eliquis 5 mg tablet RxNorm: 0535183 1 Tablet(s) PO BID 09/29/2017 Active ferrous sulfate 325 mg (65 mg iron) tablet RxNorm: 002440 1 Tab let(s) PO BID 09/29/2017 Active Cartia XT 180 mg capsule,extended release RxNorm: 872644 1 Caps ule(s) PO daily 09/29/2017 Active Multaq 400 mg tablet RxNorm: 162327 1 Tablet(s) PO BID 09/29/201711/2020 Inactive alprazolam 0.25 mg tablet RxNorm: 018212 1 Tablet(s) PO Q6 as neede d 09/29/2017 04/21/2021 Inactive furosemide 20 mg tablet RxNorm: 339094 1 Tablet(s) PO daily 018 03/15/2018 Inactive atorvastatin 20 mg tablet RxNorm: 714551 1 Tablet(s) PO QHS 018 02/16/2018 Inactive lisinopril 20 mg tablet RxNorm: 888889 1 Tablet(s) PO daily 018 01/12/2018 Inactive ranitidine 150 mg capsule RxNorm: 526367 1 Capsule(s) PO BID 201705/11/2018 Inactive isosorbide mononitrate ER 60 mg tablet,extended release 24 h r RxNorm: 537852 1 Tablet(s) PO daily 03/21/2018 03/20/2018 Inactive carvedilol 25 mg tablet RxNorm: 569072 1 Tablet(s) PO BID 03/21/2018 03/20/2018 Inactive Medication Administered Medication Codes Instructions Start Date Status Kenalog 40 mg/mL suspension for injection RxNorm: 8017921 4Milli liter 02/07/2020 No longer Active cyanocobalamin (vit B-12) 1,000 mcg/mL injection solution Rx Norm: 166318 Milliliter 11/01/2019 No longer Active Kenalog 40 mg/mL suspension for injection RxNorm: 5532889 2Milli liter 09/27/2019 No longer Active Immunizations Vaccine Codes Dose Date Status Covid-19 CVX: 08/23/2020 Covid-19 CVX: 07/25/2020 Tetanus, Diptheria, Pertussis CVX: 08/15/2015 Tetanus/Diptheria CVX: 08/15/2015 Results Observation Observation Code Item Item Code Result Date S [facility] Location HEPATITIS C (HCV) ANTIBODY F171 Hepatitis [...] % 05/05/20 Unknown Cbc With Differential Ord2 [place]% 7.3 % 05/05/20 Unknown Cbc With Differential Ord2 MCH 30.2 pg 05/05/20 Unknown Cbc With Differential Ord2 Eos% 3.5 % 05/05/20 Unknown Cbc With Differential Ord2 MCHC 31.3 pg 05/05/20 Unknown Cbc With Differential Ord2 PLT 259 K/ul 05/05/20 Unknown Cbc With Differential Ord2 Baso% 0.5 % 05/05/20 Unknown Cbc With Differential Ord2 RDW 15.4 % 05/05/20 Unknown Cbc With Differential Ord2 Neut ABS# 4.15 K/ul 05/05/20 Unknown Cbc With Differential Ord2 Lymph ABS# 1.68 K/ul 020 Unknown Cbc With Differential Ord2 [place] ABS# 0.5 K/ul 05/05/20 Unknown Cbc With Differential Ord2 Eos ABS# 0.2 K/ul 05/05/20 20 Unknown Cbc With Differential Ord2 Baso ABS# 0.0 K/ul 05/05/20 Unknown Comp Metabolic Gvn136 NA 143 mEq/L 05/05/2020 Unkn own Comp Metabolic Auv731 K 3.8 mEq/L 05/05/2020 Unkn own Comp Metabolic Kqv813 CL 107 mEq/L 05/05/2020 Unkn own Comp Metabolic Jps403 CO2 27.0 mEq/L 05/05/2020 Unk nown Comp Metabolic Vwm821 ANION GAP 13 05/05/2020 Unkn own Comp Metabolic Wyl750 GLUCOSE 92 mg/dL 05/05/2020 Unkn own Comp Metabolic Adj897 Creat 0.9 mg/dL 05/05/2020 Unkn own Comp Metabolic Jqk413 eGFR 62 ml/min/1.73m2 05/05/20 20 Unknown Comp Metabolic Kka561 BUN 17 mg/dL 05/05/2020 Unkn own Comp Metabolic Zwf002 B/C Ratio 18.1 Ratio 05/05/2020 Unk nown Comp Metabolic Rtt387 CALCIUM 8.9 mg/dL 05/05/2020 Unkn own Comp Metabolic Hzx200 ALK PHOS 70 U/L 05/05/2020 Unkn own Comp Metabolic Qrp454 AST(SGOT) 9 U/L 05/05/2020 Unkn own Comp Metabolic Emy464 ALT(SGPT) 10 U/L 05/05/2020 Unkn own Comp Metabolic Ate822 BILI T 0.7 mg/dL 05/05/2020 Unkn own Comp Metabolic Cax942 ALBUMIN 4.0 g/dL 05/05/2020 Unkn own Comp Metabolic Ddv220 TPRO 6.1 g/dL 05/05/2020 Unkn own Comp Metabolic Kwe463 GLOB 2.1 g/dL 05/05/2020 Unkn own Comp Metabolic Omu718 A/G Ratio 1.9 Ratio 05/05/2020 Unkn own Comp Metabolic Hig912 Osmo 286 mOsmo 05/05/2020 Unkn own Tsh Ord6 TSH (3rd IS) 1.60 uIU/mL 05/05/2020 Unkn own %Hba1C Lbj087 % HbA1c 27943-8 5.9 % 05/05/2020 Unknown %Hba1C Wpw132 Gluc Ave 123 mg/dL 05/05/2020 Unknown Lipid [...] 04/10/20 18 Unknown Cbc With Differential Ord2 [place]% 11.6 % 04/10/20 18 Unknown Cbc With [...] K/ul 018 Unknown Cbc With Differential Ord2 [place] ABS# 0.6 K/ul 04/10/20 18 Unknown Cbc With Differential Ord2 Eos ABS# 0.1 K/ul 04/10/20 18 Unknown Cbc With Differential Ord2 Baso ABS# 0.0 K/ul 04/10/20 18 Unknown %Hba1C Thd444 % HbA1c 45964-1 5.4 % 04/10/2018 Unknown %Hba1C Bnn800 Gluc Ave 108 mg/dL 04/10/2018 Unknown Tsh Ord6 TSH (3rd IS) 3.65 uIU/mL 03/01/2018 Unkn own Lipid Ord30 CHOL 137 mg/dL 03/01/2018 Unknown Lipid Ord30 HDL 50.0 mg/dl 03/01/2018 Unknown Lipid Ord30 TRIG 75 mg/dL 03/01/2018 Unknown Lipid Ord30 LDL 72 mg/dL 03/01/2018 Unknown Lipid Ord30 C/HDL 2.7 Ratio 03/01/2018 Unknown Comp Metabolic Ewi819 NA 144 mEq/L 03/01/2018 Unkn own Comp Metabolic Urt920 K 3.6 mEq/L 03/01/2018 Unkn own Comp Metabolic Bnd878 CL 111 mEq/L 03/01/2018 Unkn own Comp Metabolic Knm356 CO2 23.0 mEq/L 03/01/2018 Unk nown Comp Metabolic Wvs280 ANION GAP 14 03/01/2018 Unkn own Comp Metabolic Gyt985 GLUCOSE 103 mg/dL 03/01/2018 Unkn own Comp Metabolic Xjv154 Creat 0.9 mg/dL 03/01/2018 Unkn own Comp Metabolic Zre330 eGFR 67 ml/min/1.73m2 03/01/20 18 Unknown Comp Metabolic Aqz344 BUN 15 mg/dL 03/01/2018 Unkn own Comp Metabolic Nue869 B/C Ratio 16.9 Ratio 03/01/2018 Unk nown Comp Metabolic Atn193 CALCIUM 9.4 mg/dL 03/01/2018 Unkn own Comp Metabolic Kdt115 ALK PHOS 85 U/L 03/01/2018 Unkn own Comp Metabolic Hbj177 AST(SGOT) 14 U/L 03/01/2018 Unkn own Comp Metabolic Hem041 ALT(SGPT) 12 U/L 03/01/2018 Unkn own Comp Metabolic Ltx737 BILI T 0.9 mg/dL 03/01/2018 Unkn own Comp Metabolic Zdt902 ALBUMIN 4.2 g/dL 03/01/2018 Unkn own Comp Metabolic Xwn684 TPRO 6.5 g/dL 03/01/2018 Unkn own Comp Metabolic Mih062 GLOB 2.3 g/dL 03/01/2018 Unkn own Comp Metabolic Yfl266 A/G Ratio 1.8 Ratio 03/01/2018 Unkn own Comp Metabolic Ezk087 Osmo 288 mOsmo 03/01/2018 Unkn own Culture Urine [id number] URINE CULTURE SEE NOTES 01/30/2018 Unknown Culture Urine [id number] Continued Results 01/31/20 18 Unknown Urine Culture Ucult Complete >100,000 col/ml aerobi c growth sent to ref lab 01/26/2018 Unknown %Hba1C Ehr178 % HbA1c 17125-8 5.6 % 09/30/2017 Unknown %Hba1C Plh941 Gluc [address] 114 mg/dL 09/30/2017 Unknown UA Specific [place] 1.030 DateTime(Free Text in ) Unknown UA [...] VISIT CPT-4: G0439 05/05/2020 DRAIN/INJECT JOINT/BURSA CPT-4: 05/05/2020 TRIAMCINOLONE ACET INJ NOS 10 mg CPT-4: J3301 020 DEPRESSION SCREEN ANNUAL CPT-4: G0444 05/05/2020 INJ TRIGGER POINT 1/2 MUSCL CPT-4: 02930 02/07/2020 INJECT TRIGGER POINTS 3/> CPT-4: 82874 02/07/2020 TRIAMCINOLONE ACET INJ NOS 10 mg CPT-4: J3301 020 THER/PROPH/DIAG INJ SC/IM CPT-4: 37402 11/01/2019 VITAMIN B12 INJECTION 1000 mcg CPT-4: J3420 0 TRIAMCINOLONE ACET INJ NOS 10 mg CPT-4: J3301 020 DRAIN/INJECT JOINT/BURSA CPT-4: 85127 09/27/2019 PPPS, SUBSEQ VISIT CPT-4: G0439 05/02/2019 URINALYSIS NONAUTO W/O SCOPE CPT-4: 34540 2018 Vital Signs Date Vital 04/21/2021 Blood Pressure 1: 134/80 Code: 8480-6 BMI: 38.1 Code: 32702-5 Heart Rate 1: 65 bpm Height: 5'8" Code: 8302-2 Respiratory Rate: 18 bpm SpO2: 98% Temperature: 36.8 (C) / 98.2 (F) Weight: 247 lbs Code: 29012-6 10/24/2020 Blood Pressure 1: 136/84 Code: 8480-6 BMI: 37.3 Code: 49612-9 Heart Rate 1: 85 bpm Height: 5'8" Code: 8302-2 SpO2: 97% Temperature: 3 5.8 (C) / 96.5 (F) Weight: 242 lbs Code: 05496-7 08/19/2020 Blood Pressure 1: 108/70 Code: 8480-6 Heart Rate 1: 73 bpm Height: 5'8" Code: 8302-2 SpO2: 93% Temperature: 36.8 (C) / 98.2 (F) Weight: Code: 60641-2 05/05/2020 Blood Pressure 1: 146/74 Code: 8480-6 BMI: 38.0 Code: 57949-9 Heart Rate 1: 83 bpm Height: 5'8" Code: 8302-2 SpO2: 98% Temperature: 3 6.3 (C) / 97.4 (F) Weight: 246 lbs Code: 42124-8 02/07/2020 Blood Pressure 1: 146/88 Code: 8480-6 BMI: 37.7 Code: 05413-5 Heart Rate 1: 89 bpm Height: 5'8" Code: 8302-2 Respiratory Rate: 17 bpm SpO2: 98% Temperature: 36.4 (C) / 97.6 (F) Weight: 244 lbs Code: 89326-1 01/02/2020 Height: Code: 8302-2 Weight: Code: 294 63-7 12/19/2019 Height: Code: 8302-2 Weight: Code: 294 63-7 11/01/2019 Blood Pressure 1: 126/68 Code: 8480-6 BMI: 36.9 Code: 11367-5 Heart Rate 1: 87 bpm Height: 5'8" Code: 8302-2 Respiratory Rate: 15 bpm SpO2: 96% Temperature: 36.6 (C) / 97.8 (F) Weight: 239 lbs Code: 19168-3 09/27/2019 Blood Pressure 1: 120/74 Code: 8480-6 BMI: 37.3 Code: 77604-4 Heart Rate 1: 80 bpm Height: 5'8" Code: 8302-2 Respiratory Rate: 16 bpm SpO2: 97% Temperature: 36.5 (C) / 97.7 (F) Weight: 242 lbs Code: 72161-5 05/02/2019 Blood Pressure 1: 128/70 Code: 8480-6 BMI: 37.8 Code: 95413-3 Heart Rate 1: 86 bpm Height: 5'8" Code: 8302-2 SpO2: 98% Weight: 245 lb s Code: 13701-0 10/19/2018 BMI: 37.7 Code: 93639-6 Heart Rate 1: 79 bpm Hei ght: 5'8" Code: 8302-2 SpO2: 99% Weight: 244 lbs Code: 76384 -7 2018 Blood Pressure 1: 132/64 Code: 8480-6 BMI: 36.7 Code: 34568-5 Heart Rate 1: 62 bpm Height: 5'8" Code: 8302-2 SpO2: 96% Weight: 238 lb s Code: 85080-7 09/29/2017 Blood Pressure 1: 124/76 Code: 8480-6 BMI: 36.8 Code: 41028-7 Heart Rate 1: 83 bpm Height: 5'8" Code: 8302-2 SpO2: 98% Weight: 238 lb s 8 oz Code: 70920-0 Functional Status No Functional Status data Reason [...] 09/29/2017 Encounters Encounter Performer Location Codes Date ([id number]) [id number] EST. PATIENT, LEVEL IV Diagnosis: Essential (primary) hypertension[ICD10: I10] Diagnosis: Mixed urge and stress incontinence[ICD10: N39.46] Diagnosis: Type 2 diabetes mellitus without complications[ICD10: E11.9] Katelynn Nance MD, [facility] CPT-4: 11806 04/21/2021 [id number]) 36540 EST. PATIENT, LEVEL III Diagnosis: Weakness[ICD10: R53.1] Diagnosis: Limited mobility[ICD10: Z74.09] Diagnosis: Gait instability[ICD10: R26.81] Martha Nance MD , [facility] CPT-4: 33861 10/24/2020 [id number]) 67269 EST. PATIENT, LEVEL IV Diagnosis: Urinary tract infection, site not specified[ICD10: N39.0] Diagnosis: Low back pain[ICD10: M54.5] Diagnosis: Left shoulder pain[ICD10: M25.512] Hayley wise MD, [facility] CPT-4: 87844 08/19/2020 ([id number]) 77604 EST. PATIENT, LEVEL IV Diagnosis: Neck pain on right side[ICD10: M54.2] Diagnosis: Acute right-sided thoracic back pain[ICD10: M54.6] Diagnosis: Acute bilateral low back pain without sciatica[ICD10: M54.5] Diagnosis: Trigger point of thoracic region[ICD10: M54.6] Diagnosis: Trigger point with back pain[ICD10: M54.9] Diagnosis: Essential (primary) hypertension[ICD10: I10] Diagnosis: COVID-19[ICD10: U07.1] Katelynn Nance MD, [facility] CPT -4: 64167 02/07/2020 [id number] EST. PATIENT, LEVEL II Diagnosis: Cough[ICD10: R05] Diagnosis: Hospital discharge follow-up[ICD10: Z09] Diagnosis: COVID-19[ICD10: U07.1] Martha Nance MD, [facility] CPT -4: 04306 01/02/2020 05593 EST. PATIENT, LEVEL III Diagnosis: Cough[ICD10: R05] Diagnosis: Acute laryngopharyngitis[ICD10: J06.0] Martha Chanel MD, [facility] CPT-4: 20327 12/19/2019 ([id number]) 26924 EST. 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 PATIENT, LEVEL III Diagnosis: Cervicalgia[ICD10: M54.2] [facility] CPT-4: 91349 10/19/2018 ([id number]) 77915 EST. PATIENT, LEVEL IV Diagnosis: Essential (primary) hypertension[ICD10: I10] Diagnosis: Low back pain[ICD10: M54.5] Diagnosis: Dysuria[ICD10: R30.0] Diagnosis: Personal history of urinary calculi[ICD10: Z87.442] Diagnosis: Paroxysmal atrial fibrillation[ICD10: I48.0] Diagnosis: Urinary tract infection, site not specified[ICD10: N39.0] Katelynn Nance MD, [facility] CPT-4: 99753 2018 OFFICE VISIT, NEW - LEVEL 3 Diagnosis: Essential (primary) hypertension[ICD10: I10] Diagnosis: Type 2 diabetes mellitus without complications[ICD10: E11.9] Diagnosis: Low back pain[ICD10: M54.5] Diagnosis: Paroxysmal atrial fibrillation[ICD10: I48.0] Hayley Nance MD, [facility] CPT-4: 27360 09/29/2017 Plan of Care Planned Activity Notes [...] Completed 04/21/2021 Appointment: [phone] [facility] [place] (15 min) Moderate 10/24/2020 Patient Education: Patient Medication Summary Completed 10/24/2020 Appointment: [phone] [facility] [place] (30 min) Complex 10/03/2020 Visit Plan: [...] not help. 08/19/2020 Appointment: [place] Metcalf [phone] [phone] [place] (30 min) Complex 08/19/2020 Patient Education: [...] epidural injections 05/05/2020 Appointment: Hayley Metcalf WPtel: [phone] [facility] [place] [address] - Annual Wellness Visit 04/16 Patient Education: [...] muscle relaxer. 02/07/2020 Appointment: Katelynn Nance WPtel: [address] [place] [address] (15 min) Moderate 02/07/2020 Patient Education: Patient [...] Martha Linn WPtel: [facility] [place] [id number] TeleHealth 01/02/2020 Patient Education: Patient Medication Summary Completed 01/02/2020 Visit Plan: Cough, congestion, some dysp kourtney - known exposure to COVID-19 - pt tested for COVID-19 today awaiting results - Discussed with Dr. Nance - will order hydroxychloroquine and chest x-ray - will treat as indicated 12/19/2019 Appointment: Martha Linn [phone] [facility] [facility] 12/19/2019 Patient Education: Patient Medication Summary Completed [...] Magnesium Pending 020 Appointment: [phone] (15 min) Moderate 09/27/2019 Patient Education: Patient Medication Summary Completed 09/27/2019 Patient Education: Diabetes Completed 09/27/2019 Care Plan: Cbc With Differential Pending 09/27/2019 Care Plan: Comp Metabolic Pending Care Plan: %Hba1C LOINC : 14028-8 Pending 09/27/2019 Care Plan: Tsh Pending 09/27/2019 Care Plan: B12 Pending 09/27/2019 Care Plan: Folate Pending 09/27/2019 Patient Education: Patient Medication Summary Completed 05/23/2019 Care Plan: Comp Metabolic Pending Care Plan: Cbc With Differential Pending 05/04/2019 Care Plan: %Hba1C LOINC : 88744-0 Pending 05/04/2019 Care Plan: Tsh Pending 05/04/2019 [...] labs 05/02/2019 Appointment: Martha Linn [facility] [phone] [facility] [facility] - Annual Wellness Visit 04/15 Patient Education: Patient Medication Summary Completed 05/02/2019 Appointment: [place] Metcalf [facility] [phone] [phone] [facility] - Annual Wellness Visit 12/2018 Care Plan: X-RAY EXAM NECK SPINE 2-3 VW LOINC : 54371-0 Pending 10/23/2018 Visit Plan: Neck Pain- pt to start with aspercreme or biofreeze to neck three times daily and start neck exercises daily. 10/19/2018 Appointment: Martha Linn [facility] [phone] [facility] (15 min) Moderate 10/19/2018 Patient Education: Patient [...] culture ordered - keflex rx sent to [facility]. 2018 Appointment: [id number] [id number] [place] (15 min) Moderate 2018 Patient Education: Patient Medication Summary Completed 2018 Patient Education: Back Pain Completed 2018 Care Plan: X-RAY EXAM L-S SPINE 2/3 VWS LOINC : [id number] Pending 2018 Visit Plan: Hypertension - well [...] Hayley Metcalf WPtel[id number] [place] New Patient 09/29/2017 Patient Education: Patient [...] culture ordered - keflex rx sent to [facility]. 2018 RECOMMEND PROBIOTIC TWICE DAILY [...]
--- OUTSIDE RECORDS SUMMARY | 2021-05-24 14:24 | XMS REPORT | Clinical Summary ---
Author Author [facility] Organization [facility] Address Unknown Phone Unavailable Care Team Providers Care Educational Audiologist Name Role Phone Brendan Romero MD Unavailable Unavailable Parag Branch MD PCP Source Comments Some departments are not documenting in the electronic medical record. If you d o not see the information that you expected, contact Release of Information in [facility] [employer] Information Management department at [phone] for further assistan ce in locating additional records.[facility] Allergies Comments Active Allergy Reactions Severity Noted Date bradycardia Codeine SEE COMMENTS 09/02/2011 Bradycardia Meperidine SEE COMMENTS 09/02/2011 bradycardia Morphine SEE COMMENTS 09/02/2011 Medications End Date Status Medication Sig Dispensed Refills Start Date Active isosorbide mononitrate SR Take 60 mg by 0 (IMDUR) 60 mg tablet mouth at bedtime daily. Active carvedilol (COREG) 25 mg Take 25 mg by 0 tablet mouth twice daily with meals. Active lisinopril (PRINIVIL; Take 20 mg by 0 ZESTRIL) 20 mg tablet mouth every morning. Active blood sugar diagnostic 1 Strip by 0 (SURESTEP) test strip Test route before meals and at bedtime. Active ranitidine(+) (ZANTAC) Take 150 mg 0 150 mg tablet by mouth twice daily. Active aspirin 81 mg chewable Take 81 mg by 0 tablet mouth daily. Active naproxen sodium(+) Take 2 Tabs 0 (ALEVE) 220 mg tablet by mouth as Needed. Take with food. Active sotalol (BETAPACE) 160 mg Take 160 mg 0 tab by mouth twice daily. Active atorvastatin (LIPITOR) 20 Take 20 mg by 0 mg tablet mouth at bedtime daily. Active hyoscyamine (ANASPAZ; Place 1 Tab 100 Tab 0 03/2 2/201 NULEV; SYMAX FASTABS; under tongue 7 HYOMAX-FT; ED-SPAZ; every 4 hours OSCIMIN) 0.125 mg rapid as needed. dissolve tablet Active polyethylene glycol 3350 Take 1 Packet 72 Each 0 (MIRALAX) 17 g packet by mouth 7 twice daily. Additional Information Patient taking differently: 17 g Oral DAILY, Informant: Self, Reported on 08/11/2016 Active HYDROcodone/acetaminophen Take 1-2 Tabs 20 Tab 0 (NORCO) 5/325 mg tablet by mouth 7 every 6 hours as needed for Pain Additional Information Patient taking differently: 2 tablet Oral EVERY 6 HOURS PRN, Pain, Informant: Self, Reported on 08/11/2016 Active HYDROcodone/acetaminophen Take 1 Tab by 5 Tab 0 (NORCO) 5/325 mg tablet mouth every 8 7 hours as needed for Pain NTE 4g acetaminophen /day Active oxybutynin chloride Take 1 Tab by 60 Tab 11 (DITROPAN) 5 mg mouth twice 7 tabletIndications: daily. increased urinary Indications: frequency, urinary INCREASED urgency URINARY FREQUENCY, URINARY URGENCY Active Problems Problem Noted Date Coronary artery disease 09/21/2016 Normocytic anemia 09/21/2016 Cardiac resynchronization therapy defibrillator (NEON SIGN MAKER- D) in place 08/18/2016 Atrial fibrillation 08/18/2016 Overview: Formatting of this note is different fr om the original. 08/02/16 ECHO: Normal chamber sizes. LA size 3.8 cm. Device leads noted in the right heart chambers. Left ventricu lar ejection fraction = 55%. Mitral Valve: Non-specific thickening. Mild to moderate regurgitation. There is mitral annular calcification. Aortic va lve sclerosis without stenosis. Pulmonary artery pressure = 56 mmHg. No significant pericardial effusion. No prior study is available for compari son 09/20/16 Reg. Thal. Stress Test: This aristides dy is probably normal. There is evidence of shifting soft tissue attenu ation which I have described in detail above. There are no definitive p erfusion abnormalities. The overall systolic function is within normal limi ts and there are no regional wall motion or thickening abnormalities. The pharmacologic vasodilator stress ECG is technically nondiagnostic in the setting of an underlying ventricular paced rhythm. 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 -history of 4-5mm right UVJ stone s/p r emoval on 09/02/11 -several month history of recurrent fla nk pain (R>L) -CT without residual stone burden other than very small right parenchymal stone L ast Assessment & Plan: Formatting of this note might be differ ent from the original. -follow-up PRN Sciatica 08/08/2012 Overview: Formatting of this note might be differ ent from the original. -chronic and bothersome -associated LE numbness L ast Assessment & Plan: Formatting of this note might be differ ent from the original. -patient has appointment with pain cent er next week Surgical History Surgery Date Site/Laterality Comments HYSTERECTOMY CHOLECYSTECTOMY TONSIL AND ADENOIDECTOMY LUMBAR/CAUDAL INJECTION epidural steroid injection x 12 CARDIAC DEFIBRILLATOR PLACEMENT CARDIAC CATHERIZATION CORONARY STENT PLACEMENT LITHOTRIPSY 08/12/2016 Ureter/Right CYSTOSCOPY, RIG HT URETEROSCOPY, LASER LITHOTRIPSY, STONE BASKETING, STENT PLACEMENT perfor med by Brendan Romero MD at [facility] Medical devices from this surgery are i n the Implants section. URETER STENT PLACEMENT 08/02/2016 Bladder/N/A CYSTOSC OPY INSERTION STENT URETER performed by Pasha Rivas MD at [facility] Medical devices from this surgery are i n the Implants section. Medical History Medical History Date Comments Renal lithiasis Diabetes mellitus (HCC) CAD (coronary artery disease) HTN (hypertension) CVA (cerebral vascular accident) (HCC) Lumbar radiculopathy AICD (automatic cardioverter/defibrillator) present Atrial fibrillation or flutter Chronic anticoagulation Obese Social History Date Tobacco Use Types Packs/Day Years Used Never Smoker Smokeless Tobacco: Never Used Comments Alcohol Use Standard Drinks/Week No 0 (1 standard drink = 0.6 o z pure alcohol) Sex Assigned at Date Recorded Not on file Last Filed Vital Signs Reading Time Taken Comments Vital Sign 162/90 09/21/2016 2:59 PM CDT Blood Pressure 87 09/21/2016 2:59 PM CDT Pulse 36.9 C (98.4 F) 08/14/2016 8:21 AM CDT Temperature - - Respiratory Rate 98% 09/21/2016 2:59 PM CDT Oxygen Saturation - - Inhaled Oxygen Concentration 110.7 kg (244 lb) 09/21/2016 2:59 PM CDT Weight 170.2 cm (5' 7") 09/21/2016 2:59 PM CDT Height 38.22 09/21/2016 2:59 PM CDT Body Mass Index Plan of Treatment Health Maintenance Due Date Last Done Comments MEDICARE ANNUAL WELLNESS 1950 VISIT DTAP/TDAP VACCINES (1 - 1967 Tdap) HEPATITIS C SCREENING 1967 PHYSICAL (COMPREHENSIVE) 1967 EXAM BREAST CANCER SCREENING 1989 COLORECTAL CANCER 1999 SCREENING SHINGLES RECOMBINANT 1999 VACCINE (1 of 2) OSTEOPOROSIS 2014 SCREENING/MONITORING PNEUMONIA (PPSV23) 2014 VACCINE (1 of 1 - PPSV23) INFLUENZA VACCINE 12/14/2020 Implants Device Identifier Shelf Expiration Date Model / Serial / L ot Implanted Type Area Manufactur er Defibrilator ICD 01/18/2019 [id number] / [id number] / [id number] Stent Ureteral 6fr 24cm Pigtail N/A: Bladder BOSTO N Curve Taper Tip Bladder [employer] Implanted: Qty: 1 on 08/02/2016 by UROLOGY Pasha Rivas MD at [facility] 03/29/2020 [id number] / [id number] / [id number] Stent Ureteral 6fr 26cm Pigtail Right: Ureter BOSTO N Curve Taper Tip Bladder [employer] Implanted: Qty: 1 on 08/12/2016 by UROLOGY Brendan Romero MD at [facility] Results Not on filefrom Last 3 Months Insurance Type Payer Benefit Subscriber ID Effective Phone Address Plan / Dates Group Medicare MEDICARE MEDICARE [id number] 1991-P [phone] [address] [place] [address] Advance Directives Patient Exhibit Display Representative Explanation Type Date Recorded Advance 08/03/2016 9:45 AM Directive/DPOA Advance Directives 09/02/2011 4:07 PM and Living Will Date Inactivated Comments Code Status Date Activated 08/14/2016 2:07 PM Full Code 08/11/2016 9:25 PM Provider has discussed Code Status No, more discussi on w/Patient or Family? needed 08/04/2016 7:14 PM Full Code 08/01/2016 10:06 PM Provider has discussed Code Status Yes w/Patient or Family? Care Teams Start Date End Date Educational Audiologist Relationship Specialty 08/15/12 Parag Branch MD PCP - General [address] [place] [id number] 09/01/11 Brendan Romero MD Urology Retired
--- OUTSIDE RECORDS SUMMARY | 2021-05-24 14:25 | XMS REPORT | CCD ---
Author Author Brigitte Metcalf Organization Katelynn Nance MD, [facility] Address [address] [place] [address] Phone Care Team Providers Care Property Management Assistant Name Role Phone PP Unavailable CCM Unavailable Summary Purpose Interface Exchange Insurance Providers Payer name Policy type / Coverage type Covered libertarian ID Effective Begin Date Effective End Date [facility] Commercial Insurance [id number] Un known Family history Father Diagnosis Age At Onset Colon cancer Unknown Mother Diagnosis Age At Onset Diabetes mellitus Type 2 Unknown Hypertension Unknown Alcoholism Unknown Hyperlipidemia Unknown Social History Social History Element Codes Description Effective Dates Marital status Unknown González 09/29/2017 Number of children Unknown 3 09/29/[address]: 857881970 Never smoker 09/29/[address]: 682225012 Never drinks alcohol 2017 Has the patient ever used illegal drugs? Unknown Has nev er used illegal drugs 09/29/2017 Allergies, Adverse Reactions, Alerts Substance Reaction Codes Entered Date Inactivated Date Status demerol RxNorm: 465762 09/29/2017 No Inactive Date Acti ve MORPHINE SULFATE RxNorm: 2226642 09/29/2017 No Inactive Da te Active CODEINE [...] Start Date Stop Date Status Fill Instructions oxybutynin chloride 5 mg tablet RxNorm: 762296 Take 1 T ablet(s) Oral two times a day 04/21/2021 04/15/2022 Active amiodarone 100 mg tablet RxNorm: 698430 Take 1 Tablet(s ) Oral every day managed by cardiology 04/21/2021 04/15/2022 Active furosemide 40 mg tablet RxNorm: 003869 Take 1 Tablet(s) Oral every day manged by cardiology 04/21/2021 04/15/2022 Active gabapentin 100 mg capsule RxNorm: 869575 5 Capsule(s) O ral as directed 2 in am and 3 in martir 04/21/2021 11/16/2021 Active isosorbide mononitrate 20 mg tablet RxNorm: 494354 Take 4 Tablet(s) Oral every day 80mg daily - managed by cardiology 04/21/2021 04/15/2022 Active isosorbide mononitrate ER 60 mg tablet,extended release 24 h r RxNorm: 863433 TAKE 1 TABLET BY MOUTH ONCE DAILY 10/30/2020 01/27/2021 Inactive mupirocin 2 % topical ointment RxNorm: 503796 1 Applica tion Topical two times a day 10/24/2020 No Stop Date Active prednisone 20 mg tablet RxNorm: 014313 2 Tablet(s) Oral every day 0 10/24/2020 10/29/2020 Inactive lisinopril 20 mg tablet RxNorm: 938941 Take 1 tablet by mouth o nce daily 10/20/2020 07/16/2021 Active Augmentin 500 mg-125 mg tablet RxNorm: 566364 1 Tablet( s) Oral three times a day 08/19/2020 08/26/2020 Inactive gabapentin 100 mg capsule RxNorm: 156242 5 Capsule(s) O ral as directed 2 in am and 3 in martir 08/05/2020 03/03/2021 Inactive Zofran 4 mg tablet RxNorm: 058897 1 Tablet(s) Oral Q8 as needed 07/202008/16/2020 Inactive tizanidine 2 mg tablet RxNorm: 877987 2 Tablet(s) Oral three times a day as needed muscle spasms for muscle spasms 06/18/2020 06/18/2020 Inactive Duragesic 25 mcg/hr transdermal patch RxNorm: 500831 1 Patch Transdermal every 72 hours 06/18/2020 06/18/2020 Inactive carvedilol 25 mg tablet RxNorm: 784485 Take 1 tablet by mouth t wice daily 06/11/2020 06/05/2021 Active atorvastatin 20 mg tablet RxNorm: 598628 TAKE 1 TABLET BY MOUTH ONCE DAILY AT BEDTIME 06/11/2020 06/05/2021 Active Zofran 4 mg tablet RxNorm: 960876 1 Tablet(s) Oral Q8 as needed 05/11/2020 Inactive oxycodone-acetaminophen 5 mg-325 mg tablet RxNorm: 4536521 1 Tablet(s) Oral Every 4 hrs as needed 05/12/2020 05/11/2020 Inactive oxycodone-acetaminophen 5 mg-325 mg tablet RxNorm: 2695059 1 Tablet(s) Oral Every 6 hrs as needed 05/12/2020 05/12/2020 Inactive Zofran 4 mg tablet RxNorm: 442759 1 Tablet(s) Oral Q8 as needed 06/17/2020 Inactive tizanidine 2 mg tablet RxNorm: 944684 2 Tablet(s) Oral three times a day as needed muscle spasms for muscle spasms 05/07/2020 05/07/2020 Inactive tizanidine 2 mg tablet RxNorm: 353934 1 Tablet(s) Oral three times a day as needed muscle spasms for muscle spasms 05/05/2020 05/05/2020 Inactive tizanidine 2 mg tablet RxNorm: 960869 1 Tablet(s) Oral three times a day as needed muscle spasms for muscle spasms 02/07/2020 05/04/2020 Inactive Kenalog 40 mg/mL suspension for injection RxNorm: 7875781 4 Milliliter(s) Injection 02/07/2020 02/07/2020 Inactive dexamethasone 2 mg tablet RxNorm: 404500 2 Tablet(s) Oral every day 12/20/2019 12/25/2019 Inactive ProAir HFA 90 mcg/actuation aerosol inhaler RxNorm: 118452 2 Puff(s) Inhalation four times a day 12/20/2019 12/19/2019 Inactive Mucinex 1,200 mg tablet, extended release RxNorm: 461338 1 Tablet(s) Oral two times a day 12/20/2019 12/27/2019 Inactive ProAir HFA 90 mcg/actuation aerosol inhaler RxNorm: 732030 2 Puff(s) Inhalation four times a day 12/20/2019 12/20/2019 Inactive hydroxychloroquine 200 mg tablet RxNorm: 275888 Tablet( s) Oral 400mg BID x 1 day, then 200mg BID x 5 days 12/19/2019 04/21/2021 Inactive Vitamin D2 1,250 mcg (50,000 unit) capsule RxNorm: 5694269 1 Capsule(s) Oral once a week 11/02/2019 01/31/2020 Inactive cyanocobalamin (vit B-12) 1,000 mcg/mL injection solution Rx Norm: 761315 Milliliter(s) Injection 11/01/2019 11/01/2019 Inactive gabapentin 100 mg capsule RxNorm: 477815 1 Capsule(s) Oral thre e times a day 09/27/2019 04/24/2020 Inactive diclofenac 1 % topical gel RxNorm: 024142 2 Gram(s) Top ical four times a day apply to low back and other painful joints 09/27/2019 2020 Inact chepe Kenalog 40 mg/mL suspension for injection RxNorm: 0466929 2 Milliliter(s) Injection 1mL right and 1mL left SI joint 09/27/2019 09/27/2019 Inacti ve carvedilol 25 mg tablet RxNorm: 892941 TAKE 1 TABLET BY MOUTH T WICE DAILY 09/21/2019 06/10/2020 Inactive isosorbide mononitrate ER 60 mg tablet,extended release 24 h r RxNorm: 541401 TAKE 1 TABLET BY MOUTH ONCE DAILY 07/26/2019 07/26/2019 Inactive lisinopril 20 mg tablet RxNorm: 328321 TAKE 1 TABLET BY MOUTH O NCE DAILY 07/26/2019 07/20/2020 Inactive amoxicillin 500 mg capsule RxNorm: 142177 1 Capsule(s) Oral thr ee times a day 07/26/2019 08/02/2019 Inactive amoxicillin 500 mg capsule RxNorm: 060609 1 Capsule(s) Oral thr ee times a day 07/26/2019 07/25/2019 Inactive furosemide 20 mg tablet RxNorm: 095619 1 Tablet(s) Oral every day 0 07/26/2019 07/20/2020 Inactive isosorbide mononitrate ER 60 mg tablet,extended release 24 h r RxNorm: 874152 TAKE 1 TABLET BY MOUTH ONCE DAILY 07/16/2019 07/25/2019 Inactive lisinopril 20 mg tablet RxNorm: 965766 TAKE 1 TABLET BY MOUTH O NCE DAILY 07/16/2019 07/25/2019 Inactive atorvastatin 20 mg tablet RxNorm: 266814 TAKE 1 TABLET BY MOUTH EVERY DAY AT BEDTIME 05/21/2019 05/14/2020 Inactive cyclobenzaprine 5 mg tablet RxNorm: 939794 1 Tablet(s) PO TID as needed muscle spasms 10/19/2018 10/23/2018 Inactive gabapentin 100 mg capsule RxNorm: 283049 1 Capsule(s) PO TID as needed for pain 10/19/2018 11/17/2018 Inactive Zantac 150 mg tablet RxNorm: 373190 1 Tablet(s) PO BID 07/21/201809/2018 Inactive lisinopril 20 mg tablet RxNorm: 392584 1 Tablet(s) PO daily 019 07/15/2019 Inactive ranitidine 150 mg capsule RxNorm: 781438 1 Capsule(s) PO BID 201807/21/2018 Inactive carvedilol 25 mg tablet RxNorm: 635390 1 Tablet(s) PO BID 07/21/2018 07/15/2019 Inactive furosemide 20 mg tablet RxNorm: 010080 1 Tablet(s) PO daily 019 07/15/2019 Inactive isosorbide mononitrate ER 60 mg tablet,extended release 24 h r RxNorm: 323406 1 Tablet(s) PO daily 06/19/2018 06/13/2019 Inactive ranitidine 150 mg capsule RxNorm: 875991 1 Capsule(s) PO BID 201707/20/2018 Inactive furosemide 20 mg tablet RxNorm: 804777 1 Tablet(s) PO daily 07/20/2018 Inactive carvedilol 25 mg tablet RxNorm: 130992 1 Tablet(s) PO BID 04/18/2018 07/20/2018 Inactive lisinopril 20 mg tablet RxNorm: 201687 1 Tablet(s) PO daily 018 07/20/2018 Inactive isosorbide mononitrate ER 60 mg tablet,extended release 24 h r RxNorm: 218094 1 Tablet(s) PO daily 04/18/2018 06/18/2018 Inactive atorvastatin 20 mg tablet RxNorm: 809349 1 Tablet(s) PO QHS 04/12/2019 Inactive isosorbide mononitrate ER 60 mg tablet,extended release 24 h r RxNorm: 169224 1 Tablet(s) PO daily 03/21/2018 04/17/2018 Inactive carvedilol 25 mg tablet RxNorm: 975647 1 Tablet(s) PO BID 03/21/2018 04/17/2018 Inactive atorvastatin 20 mg tablet RxNorm: 161505 1 Tablet(s) PO QHS 018 04/17/2018 Inactive furosemide 20 mg tablet RxNorm: 174221 1 Tablet(s) PO daily 018 04/17/2018 Inactive atorvastatin 20 mg tablet RxNorm: 645168 1 Tablet(s) PO QHS 018 03/15/2018 Inactive Keflex 500 mg capsule RxNorm: 999314 1 Capsule(s) PO QID 2018 0 01/31/2018 Inactive lisinopril 20 mg tablet RxNorm: 471862 1 Tablet(s) PO daily 018 04/17/2018 Inactive lisinopril 20 mg tablet RxNorm: 518973 1 Tablet(s) PO daily 018 01/17/2018 Inactive Eliquis 5 mg tablet RxNorm: 7766371 1 Tablet(s) PO BID 09/29/2017 Active ferrous sulfate 325 mg (65 mg iron) tablet RxNorm: 730283 1 Tab let(s) PO BID 09/29/2017 Active Cartia XT 180 mg capsule,extended release RxNorm: 445423 1 Caps ule(s) PO daily 09/29/2017 Active Multaq 400 mg tablet RxNorm: 970647 1 Tablet(s) PO BID 09/29/201711/2020 Inactive alprazolam 0.25 mg tablet RxNorm: 850619 1 Tablet(s) PO Q6 as neede d 09/29/2017 04/21/2021 Inactive furosemide 20 mg tablet RxNorm: 894278 1 Tablet(s) PO daily 018 03/15/2018 Inactive atorvastatin 20 mg tablet RxNorm: 576622 1 Tablet(s) PO QHS 018 02/16/2018 Inactive lisinopril 20 mg tablet RxNorm: 339645 1 Tablet(s) PO daily 018 01/12/2018 Inactive ranitidine 150 mg capsule RxNorm: 866795 1 Capsule(s) PO BID 201705/11/2018 Inactive isosorbide mononitrate ER 60 mg tablet,extended release 24 h r RxNorm: 196783 1 Tablet(s) PO daily 03/21/2018 03/20/2018 Inactive carvedilol 25 mg tablet RxNorm: 361890 1 Tablet(s) PO BID 03/21/2018 03/20/2018 Inactive Medication Administered Medication Codes Instructions Start Date Status Kenalog 40 mg/mL suspension for injection RxNorm: 5181473 4Milli liter 02/07/2020 No longer Active cyanocobalamin (vit B-12) 1,000 mcg/mL injection solution Rx Norm: 973379 Milliliter 11/01/2019 No longer Active Kenalog 40 mg/mL suspension for injection RxNorm: 8714445 2Milli liter 09/27/2019 No longer Active Immunizations Vaccine Codes Dose Date Status Covid-19 CVX: 207 08/23/2020 Covid-19 CVX: 207 07/25/2020 Tetanus, Diptheria, Pertussis CVX: 08/15/2015 Tetanus/Diptheria CVX: 08/15/2015 Results Observation Observation Code Item Item Code Result Date S [facility] Location HEPATITIS C (HCV) ANTIBODY F171 Hepatitis C Ab Negative 05/08/2020 Unknown Cbc With Differential Ord2 WBC 6.57 K/ul 05/05/20 Unknown Cbc With Differential Ord2 RBC 3.74 M/ul 05/05/20 Unknown Cbc With Differential Ord2 HGB 11.3 g/dl 05/05/20 Unknown Cbc With Differential Ord2 Neut% 63.1 % 05/05/20 Unknown Cbc With Differential Ord2 HCT 36.1 % 05/05/20 Unknown Cbc With Differential Ord2 MCV 96.5 fl 05/05/20 Unknown Cbc With Differential Ord2 Lymph% 25.6 % 05/05/20 Unknown Cbc With Differential Ord2 MCH 30.2 pg 05/05/20 Unknown Cbc With Differential Ord2 [place]% 7.3 % 05/05/20 Unknown Cbc With Differential [...] K/ul 020 Unknown Cbc With Differential Ord2 [place] ABS# 0.5 K/ul 05/05/20 Unknown Cbc With Differential Ord2 Eos ABS# 0.2 K/ul 05/05/20 Unknown Cbc With Differential Ord2 Baso ABS# 0.0 K/ul 05/05/20 Unknown Comp Metabolic Wfb276 NA 143 mEq/L 05/05/2020 Unkn own Comp Metabolic Azq726 K 3.8 mEq/L 05/05/2020 Unkn own Comp Metabolic Yfy414 CL 107 mEq/L 05/05/2020 Unkn own Comp Metabolic Vqx205 CO2 27.0 mEq/L 05/05/2020 Unk nown Comp Metabolic Vss225 ANION GAP 13 05/05/2020 Unkn own Comp Metabolic Jko877 GLUCOSE 92 mg/dL 05/05/2020 Unkn own Comp Metabolic Mfg750 Creat 0.9 mg/dL 05/05/2020 Unkn own Comp Metabolic Jae543 eGFR 62 ml/min/1.73m2 05/05/20 20 Unknown Comp Metabolic Vfe953 BUN 17 mg/dL 05/05/2020 Unkn own Comp Metabolic Xqq999 B/C Ratio 18.1 Ratio 05/05/2020 Unk nown Comp Metabolic Xmu184 CALCIUM 8.9 mg/dL 05/05/2020 Unkn own Comp Metabolic Vxw448 ALK PHOS 70 U/L 05/05/2020 Unkn own Comp Metabolic Fkp375 AST(SGOT) 9 U/L 05/05/2020 Unkn own Comp Metabolic Boy217 ALT(SGPT) 10 U/L 05/05/2020 Unkn own Comp Metabolic Ygq361 BILI T 0.7 mg/dL 05/05/2020 Unkn own Comp Metabolic Jdf985 ALBUMIN 4.0 g/dL 05/05/2020 Unkn own Comp Metabolic Unq833 TPRO 6.1 g/dL 05/05/2020 Unkn own Comp Metabolic Xcm351 GLOB 2.1 g/dL 05/05/2020 Unkn own Comp Metabolic Rcf553 A/G Ratio 1.9 Ratio 05/05/2020 Unkn own Comp Metabolic Gul718 Osmo 286 mOsmo 05/05/2020 Unkn own Tsh Ord6 TSH (3rd IS) 1.60 uIU/mL 05/05/2020 Unkn own %Hba1C Adu704 % HbA1c 43474-9 5.9 % 05/05/2020 Unknown %Hba1C Phb210 Gluc Ave 123 mg/dL 05/05/2020 Unknown Lipid [...] 04/10/20 18 Unknown Cbc With Differential Ord2 [place]% 11.6 % 04/10/20 18 Unknown Cbc With [...] K/ul 018 Unknown Cbc With Differential Ord2 [place] ABS# 0.6 K/ul 04/10/20 18 Unknown Cbc With Differential Ord2 Eos ABS# 0.1 K/ul 04/10/20 18 Unknown Cbc With Differential Ord2 Baso ABS# 0.0 K/ul 04/10/20 18 Unknown %Hba1C Gtn226 % HbA1c 16476-4 5.4 % 04/10/2018 Unknown %Hba1C Vdn580 Gluc Ave 108 mg/dL 04/10/2018 Unknown Tsh Ord6 TSH (3rd IS) 3.65 uIU/mL 03/01/2018 Unkn own Lipid Ord30 CHOL 137 mg/dL 03/01/2018 Unknown Lipid Ord30 HDL 50.0 mg/dl 03/01/2018 Unknown Lipid Ord30 TRIG 75 mg/dL 03/01/2018 Unknown Lipid Ord30 LDL 72 mg/dL 03/01/2018 Unknown Lipid Ord30 C/HDL 2.7 Ratio 03/01/2018 Unknown Comp Metabolic Vzm934 NA 144 mEq/L 03/01/2018 Unkn own Comp Metabolic Udh131 K 3.6 mEq/L 03/01/2018 Unkn own Comp Metabolic Wth870 CL 111 mEq/L 03/01/2018 Unkn own Comp Metabolic Szi273 CO2 23.0 mEq/L 03/01/2018 Unk nown Comp Metabolic Sed296 ANION GAP 14 03/01/2018 Unkn own Comp Metabolic Pch757 GLUCOSE 103 mg/dL 03/01/2018 Unkn own Comp Metabolic Lhz798 Creat 0.9 mg/dL 03/01/2018 Unkn own Comp Metabolic Ppj215 eGFR 67 ml/min/1.73m2 03/01/20 18 Unknown Comp Metabolic Mai695 BUN 15 mg/dL 03/01/2018 Unkn own Comp Metabolic Uxf100 B/C Ratio 16.9 Ratio 03/01/2018 Unk nown Comp Metabolic Xkq183 CALCIUM 9.4 mg/dL 03/01/2018 Unkn own Comp Metabolic Xio547 ALK PHOS 85 U/L 03/01/2018 Unkn own Comp Metabolic Ehn446 AST(SGOT) 14 U/L 03/01/2018 Unkn own Comp Metabolic Vva282 ALT(SGPT) 12 U/L 03/01/2018 Unkn own Comp Metabolic Evk660 BILI T 0.9 mg/dL 03/01/2018 Unkn own Comp Metabolic Lix049 ALBUMIN 4.2 g/dL 03/01/2018 Unkn own Comp Metabolic Uzx841 TPRO 6.5 g/dL 03/01/2018 Unkn own Comp Metabolic Dqb974 GLOB 2.3 g/dL 03/01/2018 Unkn own Comp Metabolic Ori250 A/G Ratio 1.8 Ratio 03/01/2018 Unkn own Comp Metabolic Kyc699 Osmo 288 mOsmo 03/01/2018 Unkn own Culture Urine [id number] URINE CULTURE SEE NOTES 01/30/2018 Unknown Culture Urine [id number] Continued Results 01/31/20 18 Unknown Urine Culture Ucult Complete >100,000 col/ml aerobi c growth sent to ref lab 01/26/2018 Unknown %Hba1C Myb326 % HbA1c 21729-2 5.6 % 09/30/2017 Unknown %Hba1C Yzm876 Gluc Ave 114 mg/dL 09/30/2017 Unknown UA Specific Presto 1.030 DateTime(Free Text in ) Unknown UA [...] 05/05/2020 INJ TRIGGER POINT 1/2 MUSCL CPT-4: 59325 02/07/2020 INJECT TRIGGER POINTS 3/> CPT-4: 81064 02/07/2020 TRIAMCINOLONE ACET INJ NOS 10 mg CPT-4: J3301 020 THER/PROPH/DIAG INJ SC/IM CPT-4: 46361 11/01/2019 VITAMIN B12 INJECTION 1000 mcg CPT-4: J3420 0 TRIAMCINOLONE ACET INJ NOS 10 mg CPT-4: J3301 020 DRAIN/INJECT JOINT/BURSA CPT-4: 09/27/2019 PPPS, SUBSEQ VISIT CPT-4: G0439 05/02/2019 URINALYSIS NONAUTO W/O SCOPE CPT-4: 11267 2018 Vital Signs Date Vital 04/21/2021 Blood Pressure 1: 134/80 Code: 8480-6 BMI: 38.1 Code: 14925-3 Heart Rate 1: 65 bpm Height: 5'8" Code: 8302-2 Respiratory Rate: 18 bpm SpO2: 98% Temperature: 36.8 (C) / 98.2 (F) Weight: 247 lbs Code: 39483-5 10/24/2020 Blood Pressure 1: 136/84 Code: 8480-6 BMI: 37.3 Code: 35717-6 Heart Rate 1: 85 bpm Height: 5'8" Code: 8302-2 SpO2: 97% Temperature: 3 5.8 (C) / 96.5 (F) Weight: 242 lbs Code: 11891-5 08/19/2020 Blood Pressure 1: 108/70 Code: 8480-6 Heart Rate 1: 73 bpm Height: 5'8" Code: 8302-2 SpO2: 93% Temperature: 36.8 (C) / 98.2 (F) Weight: Code: 50465-7 05/05/2020 Blood Pressure 1: 146/74 Code: 8480-6 BMI: 38.0 Code: 96558-1 Heart Rate 1: 83 bpm Height: 5'8" Code: 8302-2 SpO2: 98% Temperature: 3 6.3 (C) / 97.4 (F) Weight: 246 lbs Code: 87395-6 02/07/2020 Blood Pressure 1: 146/88 Code: 8480-6 BMI: 37.7 Code: 94266-5 Heart Rate 1: 89 bpm Height: 5'8" Code: 8302-2 Respiratory Rate: 17 bpm SpO2: 98% Temperature: 36.4 (C) / 97.6 (F) Weight: 244 lbs Code: 57546-4 01/02/2020 Height: Code: 8302-2 Weight: Code: 294 63-12/19/2019 Height: Code: 8302-2 Weight: Code: 294 63-11/01/2019 Blood Pressure 1: 126/68 Code: 8480-6 BMI: 36.9 Code: 09988-4 Heart Rate 1: 87 bpm Height: 5'8" Code: 8302-2 Respiratory Rate: 15 bpm SpO2: 96% Temperature: 36.6 (C) / 97.8 (F) Weight: 239 lbs Code: 71893-2 09/27/2019 Blood Pressure 1: 120/74 Code: 8480-6 BMI: 37.3 Code: 85984-0 Heart Rate 1: 80 bpm Height: 5'8" Code: 8302-2 Respiratory Rate: 16 bpm SpO2: 97% Temperature: 36.5 (C) / 97.7 (F) Weight: 242 lbs Code: 33867-7 05/02/2019 Blood Pressure 1: 128/70 Code: 8480-6 BMI: 37.8 Code: 75164-9 Heart Rate 1: 86 bpm Height: 5'8" Code: 8302-2 SpO2: 98% Weight: 245 lb s Code: 47054-5 10/19/2018 BMI: 37.7 Code: 68114-9 Heart Rate 1: 79 bpm Hei ght: 5'8" Code: 8302-2 SpO2: 99% Weight: 244 lbs Code: 86178 -7 2018 Blood Pressure 1: 132/64 Code: 8480-6 BMI: 36.7 Code: 67394-3 Heart Rate 1: 62 bpm Height: 5'8" Code: 8302-2 SpO2: 96% Weight: 238 lb s Code: 01976-3 09/29/2017 Blood Pressure 1: 124/76 Code: 8480-6 BMI: 36.8 Code: 18065-3 Heart Rate 1: 83 bpm Height: 5'8" Code: 8302-2 SpO2: 98% Weight: 238 lb s 8 oz Code: 35655-1 Functional Status No Functional Status data Reason [...] 09/29/2017 Encounters Encounter Performer Location Codes Date EST. PATIENT, LEVEL IV Diagnosis: Essential (primary) hypertension[ICD10: I10] Diagnosis: Mixed urge and stress incontinence[ICD10: N39.46] Diagnosis: Type 2 diabetes mellitus without complications[ICD10: E11.9] Katelynn Nance MD, [facility] CPT-4: 92689 04/21/2021 ([id number]) 92522 EST. PATIENT, LEVEL III Diagnosis: Weakness[ICD10: R53.1] Diagnosis: Limited mobility[ICD10: Z74.09] Diagnosis: Gait instability[ICD10: R26.81] [facility] CPT-4: 44430 10/24/2020 ([id number]) 72295 EST. PATIENT, LEVEL IV Diagnosis: Urinary tract infection, site not specified[ICD10: N39.0] Diagnosis: Low back pain[ICD10: M54.5] Diagnosis: Left shoulder pain[ICD10: M25.512] Hayley wise MD, [facility] CPT-4: 94914 08/19/2020 ([id number]) 98643 EST. PATIENT, LEVEL IV Diagnosis: Neck pain on right side[ICD10: M54.2] Diagnosis: Acute right-sided thoracic back pain[ICD10: M54.6] Diagnosis: Acute bilateral low back pain without sciatica[ICD10: M54.5] Diagnosis: Trigger point of thoracic region[ICD10: M54.6] Diagnosis: Trigger point with back pain[ICD10: M54.9] Diagnosis: Essential (primary) hypertension[ICD10: I10] Diagnosis: COVID-19[ICD10: U07.1] Katelynn Nance MD, [facility] CPT -4: 20848 02/07/2020 [id number] EST. PATIENT, LEVEL II Diagnosis: Cough[ICD10: R05] Diagnosis: Hospital discharge follow-up[ICD10: Z09] Diagnosis: COVID-19[ICD10: U07.1] Martha Nance MD, [facility] CPT -4: 96493 01/02/2020 06134 EST. PATIENT, LEVEL III Diagnosis: Cough[ICD10: R05] Diagnosis: Acute laryngopharyngitis[ICD10: J06.0] Martha Chanel MD, [facility] CPT-4: 06562 12/19/2019 ([id number]) 88467 EST. 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 PATIENT, LEVEL III Diagnosis: Cervicalgia[ICD10: M54.2] [facility] CPT-4: 51097 10/19/2018 ([id number]) 22214 EST. PATIENT, LEVEL IV Diagnosis: Essential (primary) hypertension[ICD10: I10] Diagnosis: Low back pain[ICD10: M54.5] Diagnosis: Dysuria[ICD10: R30.0] Diagnosis: Personal history of urinary calculi[ICD10: Z87.442] Diagnosis: Paroxysmal atrial fibrillation[ICD10: I48.0] Diagnosis: Urinary tract infection, site not specified[ICD10: N39.0] [facility] CPT-4: 30123 2018 OFFICE VISIT, NEW - LEVEL 3 Diagnosis: Essential (primary) hypertension[ICD10: I10] Diagnosis: Type 2 diabetes mellitus without complications[ICD10: E11.9] Diagnosis: Low back pain[ICD10: M54.5] Diagnosis: Paroxysmal atrial fibrillation[ICD10: I48.0] Hayley Nance MD, [facility] CPT-4: 36393 09/29/2017 Plan of Care Planned Activity Notes [...] Diabetes Completed 04/21/2021 [phone] [facility] [place] (15 min) Moderate 10/24/2020 Patient Education: Patient Medication Summary Completed 10/24/2020 Appointment: Martha Linn WPtel: [phone] [facility] [place] (30 min) Complex 10/03/2020 Visit Plan: [...] not help. 08/19/2020 Appointment: Hayley Metcalf WPtel: [phone] [phone] [place] (30 min) Complex 08/19/2020 Patient Education: [...] epidural injections 05/05/2020 Appointment: Hayley Metcalf WPtel: [phone] [facility] - Annual Wellness Visit 04/16 Patient [...] muscle relaxer. 02/07/2020 Appointment: Katelynn Nance WPtel: [address] [place], [place] [phone] (15 min) Moderate 02/07/2020 Patient Education: Patient [...] medical condition. 01/02/2020 Appointment: Martha Linn WPtel: [address] [place], [place] [phone] [facility] [place] 01/02/2020 Patient Education: Patient Medication Summary Completed 01/02/2020 Visit Plan: Cough, congestion, some dysp kourtney - known exposure to COVID-19 - pt tested for COVID-19 today awaiting results - Discussed with Dr. Nance - will order hydroxychloroquine and chest x-ray - will treat as indicated 12/19/2019 Appointment: Martha Linn WPtel: [facility] [facility] [place] 12/19/2019 Patient Education: Patient Medication Summary Completed [...] Magnesium Pending 020 Appointment: Katelynn Nance WPtel: [address] [place], [place] [phone] (15 min) Moderate 09/27/2019 Patient Education: Patient Medication Summary Completed 09/27/2019 Patient Education: Diabetes Completed 09/27/2019 Care Plan: Cbc With Differential Pending 09/27/2019 Care Plan: Comp Metabolic Pending Care Plan: %Hba1C LOINC : 72333-4 Pending 09/27/2019 Care Plan: Tsh Pending 09/27/2019 Care Plan: B12 Pending 09/27/2019 Care Plan: Folate Pending 09/27/2019 Patient Education: Patient Medication Summary Completed 05/23/2019 Care Plan: Comp Metabolic Pending Care Plan: Cbc With Differential Pending 05/04/2019 Care Plan: %Hba1C LOINC : 48733-9 Pending 05/04/2019 Care Plan: Tsh Pending 05/04/2019 [...] next labs 05/02/2019 Appointment: Martha Linn WPtel: [facility] [facility] - Annual Wellness Visit 04/15 Patient Education: Patient Medication Summary Completed 05/02/2019 Appointment: [phone] [phone] [facility] - Annual Wellness Visit 12/2018 Care Plan: X-RAY EXAM NECK SPINE 2-3 VW LOINC : 16855-4 Pending 10/23/2018 Visit Plan: Neck Pain- pt to start with aspercreme or biofreeze to neck three times daily and start neck exercises daily. 10/19/2018 Appointment: [phone] (15 min) Moderate 10/19/2018 Patient Education: Patient [...] culture ordered - keflex rx sent to [facility]. 2018 Appointment: Katelynn Nance WPtel: [address] [id number] (15 min) Moderate 2018 Patient Education: Patient Medication Summary Completed 2018 Patient Education: Back Pain Completed 2018 Care Plan: X-RAY EXAM L-S SPINE 2/ VWS LOINC : 15444-2 Pending 2018 Visit Plan: Hypertension - well [...] Dr Layne 09/29/2017 Appointment: Hayley Metcalf WPtel: [address] [id number] New Patient 09/29/2017 Patient Education: Patient Medication [...] culture ordered - keflex rx sent to [facility]. 2018 RECOMMEND PROBIOTIC TWICE DAILY [...]
[2021-05-24 14:32] VITALS: BP 138/77
--- NOTE | 2021-05-24 14:42 | ED Cough/URI ---
General Chief Complaint: Cough/Cold/Flu Symptoms Stated Complaint: COUGH/CONGESTION Source: patient Exam Limitations: no limitations History of Present Illness Date Seen by Provider: May 24, 2021 Time Seen by Provider: 14:25 Initial Comments Patient to ER by private conveyance with chief complaint of a week of coughing productive of dark green phlegm and loss of voice over the last 2 days. No known sick contacts. She has had COVID-19 vaccination but not influenza vaccination. She has no history of lung disease and does not smoke cigarettes. She does not feel wheezy. She does feel short of breath but nursing reports oxygen saturation 98%. No fevers nausea vomiting diarrhea or constipation. She has not had any testing done. She follows with Dr. Cooper and Dr. Nance and has a cardiac defibrillator Allergies and Home Medications Allergies Coded Allergies: codeine (Verified Allergy, Unknown, 09/15/17) meperidine (Verified Allergy, Unknown, 09/15/17) morphine (Verified Allergy, Unknown, 09/15/17) Patient Home Medication List Home Medication List Reviewed: Yes Amiodarone HCl (Pacerone) 100 Mg Tablet, 100 MG PO DAILY, (Reported) Entered as Reported by: TR HAWKINS on 12/27/19933 Atorvastatin Calcium (Atorvastatin Calcium) 20 Mg Tablet, 20 MG PO HS, (Reported) Entered as Reported by: SIVA MCLAUGHLIN on 09/16/17918 Carvedilol (Carvedilol) 25 Mg Tablet, 25 MG PO BID, (Reported) Entered as Reported by: SIVA MCLAUGHLIN on 09/16/17918 Cholecalciferol (Vitamin D3) (Vitamin D3) 25 Mcg Capsule, 25 MCG PO DAILY, (Reported) Entered as Reported by: TR HAWKINS on 12/27/19933 Cyclobenzaprine HCl (Cyclobenzaprine HCl) 10 Mg Tablet, 10 MG PO Q8H PRN for SPASMS Prescribed by: DORIAN MUHAMMAD on 08/12/20 2330 Diltiazem HCl (Diltiazem ER) 180 Mg Tab.er.24h, 180 MG PO DAILY, (Reported) Entered as Reported by: TR HAWKINS on 12/27/19933 Ferrous Sulfate (Ferrous Sulfate) 325 Mg Tablet, 325 MG PO DAILY, (Reported) Entered as Reported by: SIVA MCLAUGHLIN on 09/16/17918 Furosemide (Furosemide) 20 Mg Tablet, 20 MG PO DAILY, (Reported) Entered as Reported by: SIVA MCLAUGHLIN on 09/16/17918 Gabapentin (Gabapentin) 100 Mg Capsule, 100 MG PO BID, (Reported) Entered as Reported by: TR HAWKINS on 12/27/19 09 Isosorbide Mononitrate (Isosorbide Mononitrate ER) 60 Mg Tab, 60 MG PO DAILY, (Reported) Entered as Reported by: SIVA MCLAUGHLIN on 09/16/17918 Lisinopril (Lisinopril) 20 Mg Tablet, 20 MG PO DAILY, (Reported) Entered as Reported by: ZAIN POLLACK on 09/21/18 0814 Naproxen (Naproxen) 500 Mg Tablet.dr, 500 MG PO BID Prescribed by: DORIAN MUHAMMAD on 08/12/202329 Nitrofurantoin Monohyd/M-Cryst (Macrobid 100 mg Capsule) 100 Mg Capsule, 1 TAB PO BID Prescribed by: DORIAN MUHAMMAD on 08/12/20 233 Ondansetron (Ondansetron Odt) 4 Mg Tab.rapdis, 4 MG PO Q6H PRN for NAUSEA/VOMITING-1ST LINE, (Reported) Entered as Reported by: TR HAWKINS on 12/27/19933 Tramadol HCl (Ultram) 50 Mg Tablet, 50 MG PO Q6H PRN for NAUSEA/VOMITING Prescribed by: FOZIA HAYS on 06/03/20 1904 Tramadol HCl (Ultram) 50 Mg Tablet, 50 MG PO Q6H PRN for PAIN-MODERATE (5-7) Prescribed by: FOZIA HAYS on 07/15/20 1251 Review of Systems Review of Systems Constitutional: No chills, No diaphoresis, No fever; malaise EENTM: No ear discharge, No ear pain Respiratory: cough, phlegm, short of breath; No wheezing Cardiovascular: No chest pain, No edema, No palpitations Gastrointestinal: No abdominal pain, No constipation, No diarrhea, No nausea Genitourinary: No discharge, No dysuria Musculoskeletal: No back pain, No joint pain All Other Systems Reviewed Negative Unless Noted: Yes Past Lccbhtn-Jhquvi-Koldyz Hx Patient Social History Tobacco Use?: No Use of E-Cig and/or Vaping dev: No Substance use?: No Immunizations Up To Date Tetanus Booster (TDap): Unknown PED Vaccines UTD: Yes Seasonal Allergies Seasonal Allergies: No Past Medical History Surgeries: Yes Cardiac, Coronary Stent, Defibrillator, Gallbladder, Hysterectomy, Pacemaker, Tonsillectomy Respiratory: Yes (COVID-19 INFECTION WITH HOSPITALIZATION 12/2019) Cardiac: Yes (PACEMAKER/DEFIBRILLATOR; CARDIAC CATH WITH STENT) Atrial Fibrillation, Cardiomyopathy, Coronary Artery Disease, Hypertension, Irregular Heartbeat Neurological: Yes TIA Reproductive Disorders: No Sexually Transmitted Disease: No Genitourinary: Yes Kidney Stones Gastrointestinal: Yes Gastroesophageal Reflux, Gall Bladder Disease Musculoskeletal: Yes (CHRONIC GENERALIZED PAIN; LUMBAR RADICULOPATHY;CHRONIC LEFT ANKLE SWELLING) Degenerate Disk Disease, Arthritis, Chronic Back Pain Endocrine: Yes (DIET CONTROLLED; OBESITY) Diabetes, Non-Insulin dep HEENT: No Cancer: No Psychosocial: No Integumentary: No Blood Disorders: No Family Medical History Heart Disease Physical Exam Vital Signs - First Documented 05/24/21 14:32 Temp 35.8 Pulse 67 B/P (MAP) 138/77 (97) Pulse Ox 99 O2 Delivery Room Air Capillary Refill : Height: 5'5.00" Weight: 247lbs. 0.0oz. 112.698866is; 37.35 BMI Method:Estimated General Appearance: WD/WN, mild distress Eyes: Bilateral Eye Normal Inspection, Bilateral Eye PERRL, Bilateral Eye EOMI HEENT: PERRL/EOMI, TMs normal, pharynx normal Neck: full range of motion, supple, normal inspection Respiratory: no respiratory distress (98% on room air nonlabored breathing with dry coughing), no accessory muscle use, decreased breath sounds, crackles (Few bibasilar); No wheezing Cardiovascular: normal peripheral pulses, regular rate, rhythm Gastrointestinal: normal bowel sounds, non tender, soft Neurologic/Psychiatric: alert, normal mood/affect, oriented x 3 Skin: normal color, warm/dry Progress/Results/Core Measures Suspected Sepsis SIRS Temperature: Pulse: Respiratory Rate: Laboratory Tests 05/24/21 14:45: White Blood Count 8.5 Blood Pressure / Mean: Laboratory Tests 05/24/21 14:45: Creatinine 0.95, Platelet Count 247, Total Bilirubin 1.0 Results/Orders Lab Results Laboratory Tests Test 05/24/21 14:38 05/24/21 14:45 Range/Units Influenza Type A (RT-PCR) Not Detected Not Detecte Influenza Type B (RT-PCR) Not Detected Not Detecte SARS-CoV-2 RNA (RT-PCR) Not Detected Not Detecte White Blood Count 8.5 4.3-11.0 10^3/uL Red Blood Count 3.96 3.80-5.11 10^6/uL Hemoglobin 11.5 11.5-16.0 g/dL Hematocrit 37 35-52 % Mean Corpuscular Volume 94 80-99 fL Mean Corpuscular Hemoglobin 29 25-34 pg Mean Corpuscular Hemoglobin Concent 31 L 32-36 g/dL Red Cell Distribution Width 13.2 10.0-14.5 % Platelet Count 247 130-400 10^3/uL Mean Platelet Volume 9.6 9.0-12.2 fL Immature Granulocyte % (Auto) 0 % Neutrophils (%) (Auto) 56 42-75 % Lymphocytes (%) (Auto) 28 12-44 % Monocytes (%) (Auto) 9 0-12 % Eosinophils (%) (Auto) 7 0-10 % Basophils (%) (Auto) 1 0-10 % Neutrophils # (Auto) 4.8 1.8-7.8 10^3/uL Lymphocytes # (Auto) 2.4 1.0-4.0 10^3/uL Monocytes # (Auto) 0.8 0.0-1.0 10^3/uL Eosinophils # (Auto) 0.6 H 0.0-0.3 10^3/uL Basophils # (Auto) 0.0 0.0-0.1 10^3/uL Immature Granulocyte # (Auto) 0.0 0.0-0.1 10^3/uL Sodium Level 145 135-145 MMOL/L Potassium Level 3.5 L 3.6-5.0 MMOL/L Chloride Level 108 H 98-107 MMOL/L Carbon Dioxide Level 25 21-32 MMOL/L Anion Gap 12 5-14 MMOL/L Blood Urea Nitrogen 15 7-18 MG/DL Creatinine 0.95 0.60-1.30 MG/DL Estimat Glomerular Filtration Rate 70 BUN/Creatinine Ratio 16 Glucose Level 96 70-105 MG/DL Calcium Level 9.1 8.5-10.1 MG/DL Corrected Calcium 9.0 8.5-10.1 MG/DL Total Bilirubin 1.0 0.1-1.0 MG/DL Aspartate Amino Transf (AST/SGOT) 9 5-34 U/L Alanine Aminotransferase (ALT/SGPT) 10 0-55 U/L Alkaline Phosphatase 97 40-136 U/L C-Reactive Protein High Sensitivity 4.38 H 0.00-0.50 MG/DL B-Type Natriuretic Peptide 100.2 H <100.0 PG/ML Total Protein 7.1 6.4-8.2 GM/DL Albumin 4.1 3.2-4.5 GM/DL My Orders Orders - LIBERTAD HADLEY Cbc With Automated Diff (05/24/21 14:36) Comprehensive Metabolic Panel (05/24/21 14:36) Hs C Reactive Protein (05/24/21 14:36) Chest 1 View, Ap/Pa Only (05/24/21 14:36) Covid 19 Inhouse Test (05/24/21 14:36) Influenza A And B By Pcr (05/24/21 14:36) Bnp Jerzy (05/24/21 14:36) Vital Signs/I&O 05/24/21 14:32 Temp 35.8 Pulse 67 B/P (MAP) 138/77 (97) Pulse Ox 99 O2 Delivery Room Air Capillary Refill : Progress Note : Time: 14:42 Progress Note Aseptic vital signs. Chest x-ray labs COVID influenza and BNP. Diagnostic Imaging Diagonstic Imaging: Xray Plain Films/CT/US/NM/MRI: chest Comments [facility], [place] NAME: GAGANDEEP KIM [facility] REC#: [id number] PT STATUS: REG ER : 1950 PHYSICIAN: LIBERTAD HADLEY MD ADMIT DATE: 05/24/21/ER Draft Date of Exam:05/24/21 CHEST 1 VIEW, AP/PA ONLY INDICATION: cough soa. TECHNIQUE: Single-view chest at 02:46 p.m. CORRELATION STUDY: 04/21/2021. FINDINGS: Left-sided AICD remains in place. Heart size is enlarged. Mediastinum is mildly prominent. Tortuous course of the thoracic aorta. Vasculature is overall within normal limits. No definitive consolidating infiltrate. IMPRESSION: 1. Heart size is mildly enlarged without evidence for overt failure. No significant infiltrate. Dictated on workstation # [id number] Dict: 05/24/21 1510 Trans: 05/24/21 1518 [id number] Interpreted by: IRMA FAULKNER DO Electronically signed by: Reviewed: Reviewed by Me Departure Impression Primary Impression: Laryngitis Additional Impression: Bronchitis Disposition: HOME, SELF-CARE Condition: Stable Departure-Patient Inst. Decision time for Depature: 16:01 Referrals: GIO NANCE MD (PCP/Family) Primary Care Physician Patient Instructions: Bronchitis, Adult ED, Laryngitis (DC) Add. Discharge Instructions: Drink plenty of fluids. Salt water gargles to reduce swelling in your throat. Lozenges with menthol, camphor and eucalyptus as needed. Tylenol and Motrin for body aches or fever. Humidifiers and vapor rubs such as Vicks or Mentholatum. Tessalon Perles 1 capsule every 6 hours as necessary for cough. Symptoms should resolve in 1 to 2 weeks tops. Follow-up with primary care provider if they are persistent or your symptoms worsen. All discharge instructions reviewed with patient and/or family. Voiced understanding. Scripts Benzonatate (TESSALON PERLES) 100 Mg Capsule 100 MG PO Q6H PRN for COUGH, #20 CAP 0 Refills Prov: LIBERTAD HADLEY 05/24/21 Work/School Note: Work Release Form Date Seen in the Emergency Department: May 24, 2021 Return to Work: May 27, 2021 Restrictions: Return-No Fever (24hrs) LIBERTAD HADLEY May 24, 2021 14:42
[2021-05-24 14:55] LABS: BASOPHILS % (AUTO) 1 % (0-10); EOSINOPHILS # (AUTO) 0.6 10^3/uL (0.0-0.3); EOSINOPHILS % (AUTO) 7 % (0-10); HEMATOCRIT 37 % (35-52); HEMOGLOBIN 11.5 g/dL (11.5-16.0); LYMPHOCYTES # (AUTO) 2.4 10^3/uL (1.0-4.0); LYMPHOCYTES % (AUTO) 28 % (12-44); MEAN CORPUSCULAR HEMOGLOBIN 29 pg (25-34); MEAN CORPUSCULAR HGB CONC 31 g/dL (32-36); MEAN CORPUSCULAR VOLUME 94 fL (80-99); MEAN PLATELET VOLUME 9.6 fL (9.0-12.2); MONOCYTES # (AUTO) 0.8 10^3/uL (0.0-1.0); MONOCYTES % (AUTO) 9 % (0-12); NEUTROPHILS # (AUTO) 4.8 10^3/uL (1.8-7.8); NEUTROPHILS % (AUTO) 56 % (42-75); PLATELET COUNT 247 10^3/uL (130-400); WHITE BLOOD COUNT 8.5 10^3/uL (4.3-11.0)
[2021-05-24 15:04] LABS: ALBUMIN 4.1 GM/DL (3.2-4.5)
[2021-05-24 15:05] LABS: POTASSIUM 3.5 MMOL/L (3.6-5.0)
[2021-05-24 15:06] LABS: CALCIUM 9.1 MG/DL (8.5-10.1)
[2021-05-24 15:07] LABS: TOTAL PROTEIN 7.1 GM/DL (6.4-8.2)
[2021-05-24 15:11] LABS: CREATININE SERUM 0.95 MG/DL (0.60-1.30)
--- NOTE | 2021-05-24 15:18 | Diagnostic Imaging Report ---
INDICATION: cough soa. TECHNIQUE: Single-view chest at 02:46 p.m. CORRELATION STUDY: 04/21/2021. FINDINGS: Left-sided AICD remains in place. Heart size is enlarged. Mediastinum is mildly prominent. Tortuous course of the thoracic aorta. Vasculature is overall within normal limits. No definitive consolidating infiltrate. IMPRESSION: 1. Heart size is mildly enlarged without evidence for overt failure. No significant infiltrate. Dictated by: Dictated on workstation # [id number]
[2021-05-24] MEDS ORDERED: BENZ100C18 PO (16:03)
== END 2021-05-24 16:10 | disposition home or self-care (01) ==
LOC: EDUNIT# 14:18 → ER 14:20
DX: J04.0 Acute laryngitis (principal); J40 Bronchitis, not specified as acute or chronic; I10 Essential (primary) hypertension; I25.10 Atherosclerotic heart disease of native coronary artery without angina pectoris; E11.9 Type 2 diabetes mellitus without complications; I48.91 Unspecified atrial fibrillation; E66.9 Obesity, unspecified; Z68.37 Body mass index [BMI] 37.0-37.9, adult; Z20.822 Contact with and (suspected) exposure to COVID-19; Z86.73 Personal history of transient ischemic attack (TIA), and cerebral infarction without residual deficits; Z79.899 Other long term (current) drug therapy
CPT/HCPCS: 36415; 71045; 80053; 83880; 85025; 86141; 87636

== ENCOUNTER → 2021-07-07 | Outpatient (CLI) | payer MEDICARE ==
[2021-07-07 11:23] LABS: CALCIUM 9.1 MG/DL (8.5-10.1); CREATININE SERUM 0.95 MG/DL (0.60-1.30); MAGNESIUM 2.2 MG/DL (1.6-2.4); POTASSIUM 3.7 MMOL/L (3.6-5.0)
== END ==
LOC: LAB 09:55
PROVIDERS: ATTEND Nurse Practitioner Family
DX: M79.89 Other specified soft tissue disorders (principal)
CPT/HCPCS: 36415; 80048; 83735

== ENCOUNTER → 2021-09-14 | Outpatient (CLI) | payer MEDICARE ==
--- NOTE | 2021-09-14 12:50 | Diagnostic Imaging Report ---
Indication: Shoulder pain. Time of Exam: 12:37 PM 2 views of the left clavicle show normal acromioclavicular alignment. Clavicle appears intact. No fractures are seen. Impression: No acute bony abnormality is detected. Dictated by: Dictated on workstation # [id number]
--- NOTE | 2021-09-14 13:01 | Diagnostic Imaging Report ---
INDICATION: Bilateral shoulder pain. TIME OF EXAM: 12:38 PM. TECHNIQUE: Three views of each shoulder were obtained. FINDINGS: The glenohumeral and acromioclavicular alignment is normal bilaterally. The acromiohumeral space is normal bilaterally. No fracture or dislocation is identified. IMPRESSION: No acute bony abnormality is detected. Dictated by: Dictated on workstation # [id number]
== END ==
LOC: RAD 12:16
PROVIDERS: ATTEND Family Medicine
DX: E04.1 Nontoxic single thyroid nodule (principal); M25.511 Pain in right shoulder; M21.922 Unspecified acquired deformity of left upper arm
CPT/HCPCS: 73000

== ENCOUNTER → 2021-09-15 | Outpatient (CLI) | payer MEDICARE | LOC: ORTHO 14:33 | PROVIDERS: ATTEND Orthopaedic Surgery | DX: M75.52 Bursitis of left shoulder (principal); M75.51 Bursitis of right shoulder | CPT/HCPCS: 20610; G0463 ==

== ENCOUNTER → 2021-09-29 | Outpatient (CLI) | payer MEDICARE | LOC: ORTHO 16:13 | PROVIDERS: ATTEND Orthopaedic Surgery | DX: M75.51 Bursitis of right shoulder (principal); M75.52 Bursitis of left shoulder | CPT/HCPCS: 99213 ==

== ENCOUNTER 2021-11-22 20:07 | Emergency (ER) | payer MEDICARE ==
[~2021-11-22] VITALS: Ht 170.2 cm; Wt 108.2 kg
--- NOTE | 2021-11-22 20:30 | ED Neurological Problem ---
General Chief Complaint: General Problems/Pain Stated Complaint: UNABLE TO MOVE LOWER EXTREMITIES Nursing Triage Note: TO ED [facility]IA [facility] FROM HOME. PT STATES SHE WAS AT [place] AND APPROX 1130 "LEGS QUIT WORKING". PT STATES SHE FELT WEAK AND THEN FELL ON TO HER BOTTOM PRIOR TO PAIN STARTING IN HER BACK. Source: patient, EMS History of Present Illness Date Seen by Provider: Nov 22, 2021 Time Seen by Provider: 20:10 Initial Comments PT ARRIVES VIA EMS FROM HOME PT STATES AROUND 1100 AM TODAY, WHILE AT [employer], BOTH OF HER LEGS QUIT WORKING--DENIES ANY PAIN TO HER LEGS. STATES HER LEGS WERE REALLY WEAK AND SHE COULDN'T REALLY STAND AT [employer] AND HER DAUGHTER AN ANOTHER PERSON HAD TO HELP HER TO THE BATHROOM, AND SHE DID FALL, LANDING ON HER BUTTOCKS. PT HAS HAD PAIN IN HER LOW BACK SINCE THEN--RATES HER PAIN 9/10 IN HER LOW BACK DID NOT HIT HER HEAD OR HAVE LOSS OF CONSCIOUSNESS STATES PEOPLE HAD TO HELP HER INTO THE CAR AND INTO HER HOUSE AFTER SHE GOT OUT OF [employer]. GIVES NO REASON WHY SHE DID NOT COME TO ER EARLIER, WHEN SYMPTOMS BEGAN OR AFTER [employer]. PT HAS NEUROPATHY IN BOTH OF HER LEGS, FROM HER KNEES DOWN--THIS IS NOT NEW OR ANY DIFFERENT THAN NORMAL--SHE IS ALWAYS NUMB FROM THE KNEES DOWN. PT HAS LONGSTANDING LOW BACK PAIN WITH LUMBAR RADICULOPATHY STATES SHE HAS A HEADACHE WELL PT HAS NOT BEEN ABLE TO URINATE OR HAVE A BM SINCE 1100 AM TODAY PT IS ABLE TO TALK, EAT/DRINK/SWALLOW FINE NO SYMPTOMS TO UPPER EXTREMITIES STATES BOTH OF HER LEGS HAVE BEEN SWOLLEN SINCE SHE WAS SITTING IN [place]. STATES SHE HAD THESE EXACT SAME SYMPTOMS 3 WEEKS AGO ( BOTH LEGS WOULDN'T WORK) AND WAS DX WITH A STROKE AND WAS HOSPITALIZED AT [facility] AND JUST GOT HOME Tuesday11/20/21. STATES SHE WAS BACK TO NORMAL BEFORE SHE WAS DISMISSED TO HOME, AND HAS BEEN DOING FINE UNTIL TODAY. STATES SHE INITIALLY WENT TO [facility] AND WAITED IN WAITING ROOM FOR 8 HOURS AND LEFT AND WENT TO [facility], AND THEN WAS TRANSFERRED TO [facility] ( "BECAUSE THEY HAD A NEUROSURGEON" ) AND THEN WENT TO "[facility] IN [place], AND DISMISSED ON Tuesday11/20/21. HAS HAD COVID-19 VACCINE X 3. DOES NOT RECALL WHAT MONTH SHE HAD HER LAST VACCINE Allergies and Home Medications Allergies Coded Allergies: codeine (Verified Allergy, Unknown, 09/15/17) meperidine (Verified Allergy, Unknown, 09/15/17) morphine (Verified Allergy, Unknown, 09/15/17) Patient Home Medication List Amiodarone HCl (Pacerone) 100 Mg Tablet, 100 MG PO DAILY, (Reported) Entered as Reported by: TR HAWKINS on 12/27/19933 Atorvastatin Calcium (Atorvastatin Calcium) 20 Mg Tablet, 20 MG PO HS, (Reported) Entered as Reported by: SIVA MCLAUGHLIN on 09/16/17918 Benzonatate (Tessalon Perles) 100 Mg Capsule, 100 MG PO Q6H PRN for COUGH Prescribed by: LIBERTAD HADLEY on 05/24/21 1603 Carvedilol (Carvedilol) 25 Mg Tablet, 25 MG PO BID, (Reported) Entered as Reported by: SIVA MCLAUGHLIN on 09/16/17918 Cholecalciferol (Vitamin D3) (Vitamin D3) 25 Mcg Capsule, 25 MCG PO DAILY, (Reported) Entered as Reported by: TR HAWKINS on 12/27/19933 Cyclobenzaprine HCl (Cyclobenzaprine HCl) 10 Mg Tablet, 10 MG PO Q8H PRN for SPASMS Prescribed by: DORIAN MUHAMMAD on 08/12/20 2330 Diltiazem HCl (Diltiazem ER) 180 Mg Tab.er.24h, 180 MG PO DAILY, (Reported) Entered as Reported by: TR HAWKINS on 12/27/19933 Ferrous Sulfate (Ferrous Sulfate) 325 Mg Tablet, 325 MG PO DAILY, (Reported) Entered as Reported by: SIVA MCLAUGHLIN on 09/16/17918 Furosemide (Furosemide) 20 Mg Tablet, 20 MG PO DAILY, (Reported) Entered as Reported by: SIVA MCLAUGHLIN on 09/16/17918 Gabapentin (Gabapentin) 100 Mg Capsule, 100 MG PO BID, (Reported) Entered as Reported by: TR HAWKINS on 12/27/19933 Isosorbide Mononitrate (Isosorbide Mononitrate ER) 60 Mg Tab, 60 MG PO DAILY, (Reported) Entered as Reported by: SIVA MCLAUGHLIN on 09/16/17918 Lisinopril (Lisinopril) 20 Mg Tablet, 20 MG PO DAILY, (Reported) Entered as Reported by: ZAIN POLLACK on 09/21/18 0814 Naproxen (Naproxen) 500 Mg Tablet.dr, 500 MG PO BID Prescribed by: DORIAN MUHAMMAD on 08/12/20 2330 Nitrofurantoin Monohyd/M-Cryst (Macrobid 100 mg Capsule) 100 Mg Capsule, 1 TAB PO BID Prescribed by: DORIAN MUHAMMAD on 08/12/20 2330 Ondansetron (Ondansetron Odt) 4 Mg Tab.rapdis, 4 MG PO Q6H PRN for NAUSEA/VOMITING-1ST LINE, (Reported) Entered as Reported by: TR HAWKINS on 12/27/19 0934 Tramadol HCl (Ultram) 50 Mg Tablet, 50 MG PO Q6H PRN for NAUSEA/VOMITING Prescribed by: FOZIA HAYS on 06/03/20 1904 Tramadol HCl (Ultram) 50 Mg Tablet, 50 MG PO Q6H PRN for PAIN-MODERATE (5-7) Prescribed by: FOZIA HAYS on 07/15/20 1251 Past Rzbzlxd-Vcnvsi-Yeeyup Hx Patient Social History Tobacco Use?: No Substance use?: No Alcohol Use?: No Immunizations Up To Date Tetanus Booster (TDap): Unknown PED Vaccines UTD: Yes First/Initial COVID19 Vaccinat: 2020 Second COVID19 Vaccination Pedro: 2020 Third COVID19 Vaccination Date: April, Seasonal Allergies Seasonal Allergies: No Past Medical History Surgeries: Yes (A-V PACEMAKER + DEFIBRILLATOR;CARDIAC CATH/STENT) Cardiac, Coronary Stent, Defibrillator, Gallbladder, Hysterectomy, Pacemaker, Tonsillectomy Respiratory: Yes (COVID-19 INFECTION WITH HOSPITALIZATION 12/2019) Cardiac: Yes (A-V PACEMAKER/DEFIBRILLATOR; CARDIAC CATH WITH STENT) Atrial Fibrillation, Cardiomyopathy, Coronary Artery Disease, High Cholesterol, Hypertension, Irregular Heartbeat Neurological: Yes Neuropathy, TIA Reproductive Disorders: No [employer] History: Menopausal Sexually Transmitted Disease: No Genitourinary: Yes Kidney Stones Gastrointestinal: Yes Gastroesophageal Reflux, Gall Bladder Disease Musculoskeletal: Yes (CHRONIC GENERALIZED PAIN; LUMBAR RADICULOPATHY;CHRONIC LEFT ANKLE SWELLING) Degenerate Disk Disease, Arthritis, Chronic Back Pain Endocrine: Yes (DIET CONTROLLED; OBESITY) Diabetes, Non-Insulin dep HEENT: No Cancer: No Psychosocial: No Integumentary: No Blood Disorders: No Family Medical History Heart Disease Physical Exam Vital Signs Vital Signs - First Documented 11/22/21 20:10 Temp 36.8 Pulse 72 Resp 16 B/P (MAP) 167/93 (117) Pulse Ox 97 O2 Delivery Room Air Capillary Refill : Less Than 3 Seconds Height, Weight, BMI Height: 5'5.00" Weight: 247lbs. 0.0oz. 112.858845zy; 37.00 BMI Method:Estimated Progress/Results/Core Measures Results/Orders Lab Results Laboratory Tests Test 11/22/21 21:00 Range/Units Urine Color YELLOW Urine Clarity CLEAR Urine pH 6.0 5-9 Urine Specific [place] 1.020 1.016-1.022 Urine Protein NEGATIVE NEGATIVE Urine Glucose (UA) NEGATIVE NEGATIVE Urine Ketones NEGATIVE NEGATIVE Urine Nitrite POSITIVE H NEGATIVE Urine Bilirubin NEGATIVE NEGATIVE Urine Urobilinogen 0.2 < = 1.0 MG/DL Urine Leukocyte Esterase 1+ H NEGATIVE Urine RBC (Auto) TRACE-I H NEGATIVE Urine RBC NONE /HPF Urine WBC 2-5 /HPF Urine Squamous Epithelial Cells NONE /HPF Urine Renal Epithelial Cells NONE /HPF Urine Crystals NONE /LPF Urine Bacteria LARGE H /HPF Urine Casts NONE /LPF Urine Mucus NEGATIVE /LPF Urine Culture Indicated YES My Orders Orders - DORIAN MUHAMMAD DO Ed Iv/Invasive Line Start (11/22/21 20:15) Ekg Tracing (11/22/21 20:15) Catheter(Urinary) Insert & Ass 03,15 (11/22/21 20:15) Monitor-Rhythm Ecg Trace Only (11/22/21 20:15) Ct Head Wo-R/O Stroke (11/22/21 20:15) Ct Thoracic/Lumbar Spine Wo (11/22/21 20:15) Ct Cervical Spine Wo (11/22/21 20:15) Chest 1 View, Ap/Pa Only (11/22/21 20:15) Cbc With Automated Diff (11/22/21 20:15) Comprehensive Metabolic Panel (11/22/21 20:15) Creatine Kinase (11/22/21 20:15) Creatine Kinase Mb (11/22/21 20:15) Hs C Reactive Protein (11/22/21 20:15) Fibrin Degradation Products (11/22/21 20:15) Magnesium (11/22/21 20:15) Protime With Inr (11/22/21 20:15) Partial Thromboplastin Time (11/22/21 20:15) Thyroid Analyzer (11/22/21 20:15) Ua Culture If Indicated (11/22/21 20:15) Erythrocyte Sedimentation Rate (11/22/21 20:15) Myoglobin Serum (11/22/21 20:15) Urine Culture (11/22/21 21:00) Vital Signs/I&O 11/22/21 20:10 Temp 36.8 Pulse 72 Resp 16 B/P (MAP) 167/93 (117) Pulse Ox 97 O2 Delivery Room Air Blood Pressure Mean: 117 Progress Progress Note : Progress Note EXTREMELY DIFFICULT IV ACCESS Initial ECG Impression Date: Nov 22, 2021 Initial ECG Impression Time: 20:34 Initial ECG Rate: 60 Initial ECG Comparisson: Unchanged Comment ATRIAL-VENTRICULAR PACED Departure Departure-Patient Inst. Referrals: GIO BRADY MD (PCP/Family) Primary Care Physician DORIAN MUHAMMAD DO Nov 22, 2021 20:30
[2021-11-22 21:08] LABS: BILIRUBIN,URINE NEGATIVE (NEGATIVE); CLARITY,URINE CLEAR; COLOR,URINE YELLOW; GLUCOSE, URINE (UA) NEGATIVE (NEGATIVE); KETONES,URINE NEGATIVE (NEGATIVE); LEUKOCYTE ESTERASE ,URINE 1+ (NEGATIVE); NITRITE,URINE POSITIVE (NEGATIVE); PROTEIN,URINE NEGATIVE (NEGATIVE)
[2021-11-22 21:15] LABS: BACTERIA,URINE LARGE /HPF
--- NOTE | 2021-11-22 22:37 | Diagnostic Imaging Report ---
PROCEDURE: CT head w/o r/o stroke. TECHNIQUE: Multiple contiguous axial images were obtained through the brain without the use of intravenous contrast. Auto Exposure Controls were utilized during the CT exam to meet ALARA standards for radiation dose reduction. INDICATION: Stroke. FINDINGS: There is prominence of the ventricles and sulci. There is no hydrocephalus or cerebral edema. There is no midline shift or mass-effect. There is no intracranial mass, hemorrhage, or extra-axial fluid collection. There is some diffuse decreased attenuation of the periventricular white matter which is nonspecific. The visualized paranasal sinuses and mastoid air cells are clear. There are no regional areas of decreased attenuation appreciated to suggest an acute CVA. IMPRESSION: 1. No acute intracranial process. 2. Age-appropriate atrophy. 3. Decreased attenuation of the periventricular white matter which is nonspecific, however, likely reflects senescent change and/or chronic small vessel ischemic disease. Dictated by: Dictated on workstation # [id number]
[2021-11-22 22:39] LABS: BASOPHILS % (AUTO) 0 % (0-10); EOSINOPHILS # (AUTO) 0.3 10^3/uL (0.0-0.3); EOSINOPHILS % (AUTO) 4 % (0-10); HEMATOCRIT 38 % (35-52); HEMOGLOBIN 11.1 g/dL (11.5-16.0); LYMPHOCYTES # (AUTO) 1.9 10^3/uL (1.0-4.0); LYMPHOCYTES % (AUTO) 26 % (12-44); MEAN CORPUSCULAR HEMOGLOBIN 30 pg (25-34); MEAN CORPUSCULAR HGB CONC 30 g/dL (32-36); MEAN CORPUSCULAR VOLUME 101 fL (80-99); MEAN PLATELET VOLUME 9.7 fL (9.0-12.2); MONOCYTES # (AUTO) 0.6 10^3/uL (0.0-1.0); MONOCYTES % (AUTO) 8 % (0-12); NEUTROPHILS # (AUTO) 4.6 10^3/uL (1.8-7.8); NEUTROPHILS % (AUTO) 61 % (42-75); PLATELET COUNT 192 10^3/uL (130-400); WHITE BLOOD COUNT 7.5 10^3/uL (4.3-11.0)
--- NOTE | 2021-11-22 22:40 | Diagnostic Imaging Report ---
INDICATION: Stroke. COMPARISON: Prior examination from 05/24/2021. FINDINGS: There is cardiomegaly. There is some venous congestion. There is no pleural effusion or pneumothorax. The mediastinum is unremarkable. Pacemaker overlies the left hemithorax. IMPRESSION: Cardiomegaly and mild central pulmonary venous congestion. Dictated by: Dictated on workstation # [id number]
--- NOTE | 2021-11-22 22:41 | Diagnostic Imaging Report ---
PROCEDURE: CT cervical spine without contrast. TECHNIQUE: Multiple contiguous axial images were obtained through the cervical spine without the use of intravenous contrast. Sagittal and coronal reformations were then performed. Auto Exposure Controls were utilized during the CT exam to meet ALARA standards for radiation dose reduction. INDICATION: Neurologic deficit. FINDINGS: There is straightening of the normal cervical lordosis. Vertebral body heights are well maintained. There is some degenerative disease at C5-C6 and C6-C7. There is no fracture or traumatic subluxation. There is posterior facet arthropathy. Prevertebral soft tissues are within normal limits. IMPRESSION: Moderate degenerative disease at C5-C6 and C6-C7, otherwise unremarkable. This could be better evaluated with MRI. Dictated by: Dictated on workstation # [id number]
--- NOTE | 2021-11-22 22:43 | Diagnostic Imaging Report ---
PROCEDURE: CT thoracic and lumbar spine without contrast. TECHNIQUE: Multiple contiguous axial images were obtained through the thoracic and lumbar spine without the use of intravenous contrast. Sagittal and coronal reformations were then performed. All CT scans use one or more of the following dose optimizing techniques: automated exposure control, MA and/or KvP adjustment based on patient size and exam type or iterative reconstruction. INDICATION: Neurologic deficit. FINDINGS: There is moderate thoracic spondylosis. The vertebral body heights well maintained. There is some degenerative disc disease and mid thoracic spine. There is no fracture or traumatic subluxation. There is no bony encroachment upon the spinal canal. The visualized lungs are clear. IMPRESSION: Moderate thoracic spondylosis; however, no acute fracture or traumatic subluxation. Dictated by: Dictated on workstation # [id number]
[2021-11-22 22:48] LABS: ALBUMIN 3.8 GM/DL (3.2-4.5); POTASSIUM 3.8 MMOL/L (3.6-5.0)
[2021-11-22 22:49] LABS: CALCIUM 8.9 MG/DL (8.5-10.1)
[2021-11-22 22:51] LABS: TOTAL PROTEIN 6.4 GM/DL (6.4-8.2)
[2021-11-22 22:53] LABS: BILIRUBIN,TOTAL 0.7 MG/DL (0.1-1.0)
[2021-11-22 22:54] LABS: CREATININE SERUM 1.14 MG/DL (0.60-1.30); FIBRIN DEGRADATION PRODUCTS 0.36 UG/ML (0.00-0.49); PROTHROMBIN TIME PATIENT 13.8 SEC (12.2-14.7)
[2021-11-22 22:57] LABS: MAGNESIUM 2.3 MG/DL (1.6-2.4)
[2021-11-22 23:05] LABS: CREATINE KINASE MB 0.6 NG/ML (<6.6)
[2021-11-22] MEDS ORDERED: cefTRIAXone 1 GM PRE-MIX 50 ML IV STA (23:05)
[2021-11-22 23:16] LABS: ERYTHROCYTE SEDIMENTATION RATE 30 MM/HR (0-30)
[2021-11-22 23:18] LABS: TSH (THYROID ANALYZER) 1.68 UIU/ML (0.35-4.94)
[2021-11-22] MEDS ORDERED: methylPREDNISolone 125 MG (Solu-MEDROL) VIAL IVP ONE (23:30)
[2021-11-23] MEDS ORDERED: fentaNYL INJ 100 MCG/2 ML AMP IVP ONE (00:30)
[2021-11-23] MEDS ORDERED: ONDANSETRON 4 MG/2 ML (SDV) Z0FRAN IVP ONE (00:45)
[2021-11-23 01:08] VITALS: BP 164/74
== END 2021-11-23 00:58 | disposition short-term general hospital (02) ==
LOC: EDUNIT# 20:07 → ER 20:08
DX: E11.40 Type 2 diabetes mellitus with diabetic neuropathy, unspecified (principal); M54.16 Radiculopathy, lumbar region; R51.9 Headache, unspecified; Z86.73 Personal history of transient ischemic attack (TIA), and cerebral infarction without residual deficits; Z88.5 Allergy status to narcotic agent; Z88.6 Allergy status to analgesic agent; W18.30XA Fall on same level, unspecified, initial encounter
CPT/HCPCS: 36415; 51702; 70450; 71045; 72125; 72128; 72131; 80053; 81000; 82550; 82553; 83735; 83874; 84443; 85025; 85379; 85610; 85652; 85730; 86141; 87077; 87088; 87186; 87636; 93005; 93041

== ENCOUNTER 2021-12-22 15:04 | Inpatient (IN) | payer MEDICARE ==
[~2021-12-22] VITALS: Ht 170.5 cm; Wt 110.5 kg
[~2021-12-22 15:04] MED LIST changes: +ACETAMINOPHEN 325 MG TABLET PO PRN; +ALPRAZolam 0.25 MG (XANAX) TAB PO PRN; +BISACODYL 10 MG SUPP (DULCOLAX) PR PRN; +CALCIUM CARBONATE 500 MG (TUMS) TAB.CHEW PO PRN; +DOCUSATE SODIUM 100 MG (COLACE) CAP PO PRN; +FLEET ENEMA ADULT 1 EA BTL PR PRN; +LACTULOSE SYRUP 10GM/15ML (ENULOSE) 30ML UDC PO PRN; +LOPERAMIDE 2 MG (IMODIUM) TABLET PO PRN; +MELATONIN 3 MG TABLET PO PRN; +ONDANSETRON 4 MG (ZOFRAN) ORAL DISSOLVE TAB PO PRN; +diphenhydrAMINE 25 MG TAB (BENADRYL) PO PRN
--- NOTE | 2021-12-22 15:11 | Occupational Therapy Eval ---
OT Evaluation-General/PLF Medical Diagnosis Admission Date Dec 22, 2021 Medical Diagnosis: CIPD Onset Date: Nov 22, 2021 Therapy Diagnosis Therapy Diagnosis: decreased ADL status, weakness Height/Weight Height (Feet): 5 Height (Inches): 5.00 Weight (Pounds): 247 Weight (Ounces): 0.0 Referral Physician: Renee Referral Reason: Evaluation/Treatment Medical History Pertinent Medical History: Atrial Fib, CAD, DM, HTN, Neuropathy Additional Medical History Afib, CHF, HTN, CAD s/p PCI/[place], [place], ischemic cardiomyopathy s/p AICD, previous CVA or TIA, neuropathy, hyperlipidemia, neck injury 1988 with LE weakness, chronic low back pain, thyroid mass, obesity. Current History [facility] ED 11/22/21, unable to move LEs. Pt transferred to [facility] for multispecialty care that was unavailable at [facility]. Pt discharged 12/09, going home to her daughters for 1 night, then returned to [facility] ED 12/10 with c/o severe substernal chest pain 02/22 and some L side weakness. by 12/11, the chest discomfort had resolved. Pt transferred to [facility] 12/22/21 for continued skilled therapy and higher level of care. Recent imaging revealed mild to moderate L3-5 stenosis. Evidence of small area of infarction in distribution of apical LAD. Social History Home: Apartment Current Living Status: Spouse Entry Into Home: Level Entry ADL-Prior Level of Function SCALE: Activities may be completed with or without assistive devices. 3-Ifzlwdkqsr-akpfdoo completes the activity by him/herself with no assistance from a helper. 5-Set-up or Clean-up Assistance-helper sets up or cleans up; patient completes activity. [place] assists only prior to or following the activity. 4-Supervision or Touching Assistance-helper provides verbal cues and/or touching/steadying and/or contact guard assistance as patient completes activity. Assistance may be provided throughout the activity or intermittently. 3-Partial/Moderate Assistance-helper does LESS THAN HALF the effort. [place] lift s, holds or supports trunk or limbs, but provides less than half the effort. 2-Substantial/Maximal Assistance-helper does MORE THAN HALF the effort. [place] lifts or holds trunk or limbs and provides more than half the effort. 6-Geuestagh-zujaig does ALL the effort. Patient does none of the effort to complete the activity. Or, the assistance of 2 or more helpers is required for the patient to complete the activity. If activity was not attempted, code reason: 7-Patient Refused. 9-Not Applicable-not attempted and the patient did not perform the activity before the current illness, exacerbation or injury. 10-Not Attempted due to Environmental Limitations-(lack of equipment, weather restraints, etc.). 88-Not Attempted due to Medical Conditions or Safety Concerns. ADL PLOF Comments Pt reports IND with ADLs and functional mobility, no AD. She lives in an apartment with her , level entry. Tub converted to walk in shower, SC, and GBs. She owns a walker, using it a little bit in the last month since her illness, but not prior. Self Care: Independent Functional Cognition: Independent DME/Equipment: Bath Chair, Grab Bars, Shower, Toilet/Riser DME/Equipment Comments Pt owns a walker but wasn't using prior. Drive Self: Yes Leisure Interests: REMEDIOS OT Current Status Subjective Pt just arrived to ARU, agreeable to OT evaluation and tx. Mental Status/Objective Patient Orientation: Person, Place, Time, Situation Current Hand Dominance: Right Upper Extremity ROM WFL BUEs. Pt able to reach overhead, behind head, and behind her back as if she is tucking in her shirt. Upper Extremity Coordination Slightly decreased due to some reports of numbness BUEs. Upper Extremity Sensation "Every now and then this L side is tingly" Upper Extremity Strength grossly 3+/5 BUEs. ADL-Treatment Eating (QC): 6 (Pt reports IND with meals, even when she has some numbness or shakiness.) Oral Hygiene (QC): 7 Shower/Bathe Self (QC): 7 Upper Body Dressing (QC): 7 Lower Body Dressing (QC): 7 On/Off Footwear (QC): 7 Toileting Hygiene (QC): 4 (Supervision) Other Treatments OT evaluation complete. OT/PT cotreat due to skill of 2 clinicians required which a clinical rehabilitation specialist could not perform in order to coordinate UE/LEs, decrease fall risk, focus on higher level balance tasks and due to pt's limitations in strength, activity tolerance, mobility/transfers. OT focused on UE placement and cues for sequencing and safety, PT focused on LE placement, gross overall movement, dynamic standing balance, transfers/mobility. Pt declines ADLs, stating she has already showered today, agreeable to showering tomorrow. Pt used FWW to perform functional mobility into therapy gym. She stood at white board, completing a large wordsearch requiring pt to reach in various planes, CGA. Pt stood for task, taking rest breaks as needed. Pt only able to stand ~1 min each stand. Pt then walked into [facility] using FWW, CGA. Pt completed fall prevention BINGO game, requiring reaching for chips in various planes, and education on fall prevention topics. Pt ambulated around [facility] common area/2nd floor, then returned to her room. Post tx, pt in recliner, call light in reach and all needs met. CGA for transfers and functional mobility using FWW, min A sit to stand transfers as pt fatigued. Education OT Patient Education: Correct positioning, Energy conservation, Exercise program, Modified ADL techniques, Progress toward Goal/Update tx plan, Purpose of tx/functional activities, Rehab process Teaching Recipient: Patient Teaching Methods: Discussion Response to Teaching: Verbalize Understanding OT Short Term Goals Short Term Goals Time Frame: Jan 01, 2022 Shower/bathe self: 5 Upper body dressin Lower body dressin Putting on/taking off footwear: 5 OT Snf Goals Snf Goals Time Frame: Jan 15, 2022 Eating (QC): 6 Oral Hygiene (QC): 6 Toileting Hygiene (QC): 6 Shower/Bathe Self (QC): 6 Upper Body Dressing (QC): 6 Lower Body Dressing (QC): 6 On/Off Footwear (QC): 6 Additional Goals: 1-Demonstrate ADL Tasks, 2-Verbalize Understanding, 3- ImproveStrength/Pauline 1=Demonstrate adherence to instructed precautions during ADL tasks. 2=Patient will verbalize/demonstrate understanding of assistive devices/modifications for ADL. 3=Patient will improve strength/tolerance for activity to enable patient to perform ADL's. OT Education/Plan Problem List/Assessment Assessment: Decreased Activ Tolerance, Decreased UE Strength, Impaired Funct Balance, Impaired I ADL's, Impaired Self-Care Skills Discharge Recommendations Plan/Recommendations: Continue POC Treatment Plan/Plan of Care Patient would benefit from OT for education, treatment and training to promote independence in ADL's, mobility, safety and/or upper extremity function for ADL's. Plan of Care: ADL Retraining, Functional Mobility, Group Exercise/Act as Ind, UE Funct Exercise/Act Treatment Duration: Jan 15, 2022 Frequency: At least 5 of 7 days/Wk (IRF) Estimated Hrs Per Day: 1.5 hours per day Agreement: Yes Rehab Potential: Good Time/GCodes Start Time: 15:14 Stop Time: 16:44 Total Time Billed (hr/min): 90 Billed Treatment Time 6593-5029 OT vikial, [id number] [place] 1, EVM (10'), FA 5 (80') MARSHAL KELLY OT Dec 22, 2021 15:11
--- NOTE | 2021-12-22 15:41 | Physical Therapy Evaluation ---
PT Evaluation-General Medical Diagnosis Admission Date Dec 22, 2021 at 15:04 Medical Diagnosis: CIPD Onset Date: Nov 22, 2021 Therapy Diagnosis Therapy Diagnosis: Gait deficit, strength deficit Height/Weight Height (Feet): 5 Height (Inches): 5.00 Weight (Pounds): 247 Weight (Ounces): 0.0 Precautions Precautions/Isolations: Fall Prevention Weight Bear Status Right Lower Extremity: Right Full Weight Bearing Left Lower Extremity: Left Full Weight Bearing Referral Physician: Renee Reason for Referral: Evaluation/Treatment Medical History Pertinent Medical History: Atrial Fib, CAD, DM, HTN, Neuropathy Reviewed History: Yes Social History Home: Apartment Current Living Status: Spouse Entry Into Home: Level Entry PT Steps Into Home: 0 Prior Prior Level of Function SCALE: Activities may be completed with or without assistive devices. 1-Bpofkslbhl-kvndkse completes the activity by him/herself with no assistance from a helper. 5-Set-up or Clean-up Assistance-helper sets up or cleans up; patient completes activity. [place] assists only prior to or following the activity. 4-Supervision or Touching Assistance-helper provides verbal cues and/or touching/steadying and/or contact guard assistance as patient completes activity. Assistance may be provided throughout the activity or intermittently. 3-Partial/Moderate Assistance-helper does LESS THAN HALF the effort. [place] lifts, holds or supports trunk or limbs, but provides less than half the effort. 2-Substantial/Maximal Assistance-helper does MORE THAN HALF the effort. [place] lifts or holds trunk or limbs and provides more than half the effort. 8-Kfhmvmaid-fyosyi does ALL the effort. Patient does none of the effort to complete the activity. Or, the assistance of 2 or more helpers is required for the patient to complete the activity. If activity was not attempted, code reason: 7-Patient Refused. 9-Not Applicable-not attempted and the patient did not perform the activity before the current illness, exacerbation or injury. 10-Not Attempted due to Environmental Limitations-(lack of equipment, weather restraints, etc.). 88-Not Attempted due to Medical Conditions or Safety Concerns. Bed Mobility: 6 Transfers (B,C,W/C): 6 Gait: 6 Stairs: 6 Indoor Mobility (Ambulation): Independent Stairs: Independent Prior Devices Use: None Has a FWW at home but has not used for more than a month and only began using it then due to onset of symptoms. Prior to symptoms patient ambulated sans AD. 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 She currently reports 0/10 pain and is agreeable to treatment. Objective Patient Orientation: Person, Place, Time, Situation ROM/Strength ROM Lower Extremities WFLs bilaterally all planes Strength Lower Extremities Right LE 3+/5 all planes; Left LE 3/5 all planes Sensory Vision: Functional Hearing: Functional Hand Dominance: Right Sensation Right Lower Extremit: Intact Sensation Left Lower Extremity: Intact Transfers Roll Left & Right (QC): 4 Sit to Lying (QC): 4 Lying to Sitting/Side of Bed(Q: 4 Sit to Stand (QC): 4 Chair/Vzb-cf-Wsqfg Xfer(QC): 4 Toilet Transfer (QC): 4 Car Transfer (QC): 4 Gait Does the Patient Walk?: Yes Mode of Locomotion: Walk Anticipated Mode of Locomotion: Walk Walk 10 feet (QC): 4 Walk 50 ft with 2 Turns(QC): 4 Walk 150 ft (QC): 88 Walking 10ft/uneven surface-QC: 4 Distance: 50 Gait Assistive Device: FWW Wheelchair Training Does the Pt Use a Wheelchair?: No Wheel 50 ft with 2 turns (QC): 9 Wheel 150 ft (QC): 9 Stairs #of Steps: 8 1 Step (curb) (QC): 4 4 Steps (QC): 3 12 Steps (QC): 88 Patient ascended/descended 8 steps with CGA/min A. She attempted steps 9/10, however was unable to elevate her left LE onto the step Required mod A from PT to sit in the w/c. Balance Sitting Static: Normal Sitting Dynamic: Good Standing Static: Fair Standing Dynamic: Fair Picking up an Object (QC): 4 Special Test Comments Tinetti- Assessment/Needs Patient tolerated treatment well. Performs PT evaluation as listed above. Patient attempts to ascend/descend 12 steps, however LE strength and endurance limits her to 8 steps. She demonstrates good potential to continue to progress with skilled Physical Therapy intervention with goal of returning home at [facility]. Rehab Potential: Good PT Middle School Tutor Goals Middle School Tutor Goals PT Assisted Goals Time Frame: Jan 09, 2022 Roll Left & Right (QC): 6 Sit to Lying (QC): 6 Lying-Sitting on Side/Bed(QC): 6 Sit to Stand (QC): 6 Chair/Hmp-ys-Sdrxh Xfer(QC): 6 Toilet Transfer (QC): 6 Car Transfer (QC): 6 Does the Patient Walk: Yes Walk 10 feet (QC): 6 Walk 50ft with 2 Turns (QC): 6 Walk 150 ft (QC): 4 Walking 10ft on Uneven Surface: 6 1 Step (curb) (QC): 6 4 Steps (QC): 4 12 Steps (QC): 4 Picking up an Object (QC): 6 Does the Pt use WC or Scooter?: No Wheel 50 feet with 2 turns (QC: 9 Wheel 150 feet: 9 PT Plan Problem List Problem List: Activity Tolerance, Functional Strength, Safety, Balance, Gait, Transfer, Bed Mobility, ROM Treatment/Plan Treatment Plan: Continue Plan of Care Treatment Plan: Bed Mobility, Education, Functional Activity Pauline, Functional Strength, Group Therapy, Gait, Safety, Therapeutic Exercise, Transfers Treatment Duration: Jan 13, 2022 Frequency: At least 5 of 7 days/Wk (IRF) Estimated Hrs Per Day: 1.5 hours per day Patient and/or Family Agrees t: Yes Safety Risks/Education Patient Education: Gait Training, Transfer Techniques, Steps Teaching Recipient: Patient Teaching Methods: Demonstration, Discussion Response to Teaching: Verbalize Understanding, Return Demonstration Discharge Recommendations Barriers to Progress Strength and endurance are poor Target Placement Return to home Time/GCodes Time In: 1504 Time Out: 1514 Total Billed Treatment Time: 10 Total Billed Treatment Visit, IZABEL Chairez PT Dec 22, 2021 15:41
--- NOTE | 2021-12-22 17:04 | Physical Therapy Daily Note ---
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 Pt agrees to co-treat w/PT/OT. Mental Status Patient Orientation: Person, Place, Time, Situation Transfers SCALE: Activities may be completed with or without assistive devices. 5-Cpsgsuqbnj-jaepsml completes the activity by him/herself with no assistance from a helper. 5-Set-up or Clean-up Assistance-helper sets up or cleans up; patient completes activity. [place] assists only prior to or following the activity. 4-Supervision or Touching Assistance-helper provides verbal cues and/or touching/steadying and/or contact guard assistance as patient completes ac tivity. Assistance may be provided throughout the activity or intermittently. 3-Partial/Moderate Assistance-helper does LESS THAN HALF the effort. [place] lifts, holds or supports trunk or limbs, but provides less than half the effort. 2-Substantial/Maximal Assistance-helper does MORE THAN HALF the effort. [place] lifts or holds trunk or limbs and provides more than half the effort. 9-Jbqllqlly-xjrztz does ALL the effort. Patient does none of the effort to complete the activity. Or, the assistance of 2 or more helpers is required for the patient to complete the activity. If activity was not attempted, code reason: 7-Patient Refused. 9-Not Applicable-not attempted and the patient did not perform the activity before the current illness, exacerbation or injury. 10-Not Attempted due to Environmental Limitations-(lack of equipment, weather restraints, etc.). 88-Not Attempted due to Medical Conditions or Safety Concerns. Sit to Stand (QC): 3 Weight Bearing Right Lower Extremity: Right Full Weight Bearing Left Lower Extremity: Left Full Weight Bearing Gait Training Does the Patient Walk?: Yes Distance: 150 x2 Walk 10 feet (QC): 4 Walk 50 ft with 2 Turns(QC): 4 Walk 150 ft (QC): 4 Gait Assistive Device: FWW Treatments OT/PT cotreat due to skill of 2 clinicians required which a cardiac rehabilitation specialist could not perform in order to coordinate UE/LEs, decrease fall risk, focus on higher level balance tasks and due to pt's limitations in strength, activity tolerance, mobility/transfers. OT focused on UE placement and cues for sequencing and safety, PT focused on LE placement, gross overall movement, dynamic standing balance, transfers/mobility. Pt declines ADLs, stating she has already showered today, agreeable to showering tomorrow. Pt used FWW to perform functional mobility into therapy gym. She stood at white board, completing a large wordsearch requiring pt to reach in various planes, CGA. Pt stood for task, taking rest breaks as needed. Pt only able to stand ~1 min each stand. Pt then walked into [facility] using FWW, CGA. Pt completed fall prevention [employer] game, requiring reaching for chips in various planes, and education on fall prevention topics. Pt ambulated around [facility] area/2nd floor, then returned to her room. Post tx, pt in recliner, call light in reach and all needs met. CGA for transfers and functional mobility using FWW, min A sit to stand transfers as pt fatigued. Assessment Current Status: Good Progress Pt is motivated and pushes self to achieve more each task. Pt needs occasional RB as pt fatigues. PT Habilitation Worker Goals Habilitation Worker Goals PT Habilitation Worker Goals Time Frame: Jan 09, 2022 Roll Left & Right (QC): 6 Sit to Lying (QC): 6 Lying-Sitting on Side/Bed(QC): 6 Sit to Stand (QC): 6 Chair/Mzv-lk-Lbhbw Xfer(QC): 6 Toilet Transfer (QC): 6 Car Transfer (QC): 6 Does the Patient Walk: Yes Walk 10 feet (QC): 6 Walk 50ft with 2 Turns (QC): 6 Walk 150 ft (QC): 4 Walking 10ft on Uneven Surface: 6 1 Step (curb) (QC): 6 4 Steps (QC): 4 12 Steps (QC): 4 Picking up an Object (QC): 6 Does the Pt use WC or Scooter?: No Wheel 50 feet with 2 turns (QC: 9 Wheel 150 feet: 9 PT Plan Problem List Problem List: Activity Tolerance, Functional Strength Treatment/Plan Treatment Plan: Continue Plan of Care Treatment Plan: Bed Mobility, Education, Functional Activity Pauline, Functional Strength, Group Therapy, Gait, Safety, Therapeutic Exercise, Transfers Treatment Duration: Jan 13, 2022 Frequency: At least 5 of 7 days/Wk (IRF) Estimated Hrs Per Day: 1.5 hours per day Patient and/or Family Agrees t: Yes Safety Risks/Education Patient Education: Transfer Techniques, Correct Positioning Teaching Recipient: Patient Teaching Methods: Discussion Response to Teaching: Verbalize Understanding Time/GCodes Time In: 1534 Time Out: 1644 Total Billed Treatment Time: 70 Total Billed Treatment 1, GT (15m), EX (15m), FA x3 (40m) THUY LOPEZ PLASTIC WELDING MACHINE OPERATOR Dec 22, 2021 17:04
--- NOTE | 2021-12-22 17:35 | PM&R Post Admission Assessment ---
PM&R Date of Visit: Dec 22, 2021 Time of Visit: 18:00 History of Present Illness Chief complaint: Acute immune mediated polyneuropathy with debility History of present illness: This is a 71-year-old female clinic patient of Dr. Nance who was transferred from [facility] on 11/23/2021 due to bilateral lower extremity weakness and a fall in pentecost[place]. There was a concern of transverse myelitis versus acute immune mediated polyneuropathy so she was moved to [facility] received Plex treatments from 11/26- with recent imaging showing L3-L5 stenosis and was discharged home but then readmitted due to chest pain with small area of infarction of apical LAD. She still has bilateral lower extremity weakness and prior level of function was independent with all ADLs with no devices and she remains moderate to max assist with transfers. She lives at home with her spouse. 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 Past Vdwrdla-Crokfk-Eaukei Hx Past Med/Social Hx: Reviewed Nursing Past Med/Soc Hx, Reviewed and Corrections made Patient Social History Marrital Status: Employed/Student: retired Alcohol Use: Denies Use Drug of Choice: DENIES Smoking Status: Never a Smoker 2nd Hand Smoke Exposure: No Recent Hopitalizations: No Immunizations Up To Date Tetanus Booster (TDap): Unknown Pediatric: Yes Date of Pneumonia Vaccine: Feb 17, 2017 Seasonal Allergies Seasonal Allergies: No Past Medical History Surgeries: Cardiac, Coronary Stent, Defibrillator, Gallbladder, Hysterectomy, Pacemaker, Tonsillectomy Cardiac: Atrial Fibrillation, Cardiomyopathy, Coronary Artery Disease, High C holesterol, Hypertension, Irregular Heartbeat Neurological: Neuropathy, TIA Reproductive: No Sexually Transmitted Disease: No Menopausal Genitourinary: Kidney Stones Gastrointestinal: Gastroesophageal Reflux, Gall Bladder Disease Musculoskeletal: Degenerate Disk Disease, Arthritis, Chronic Back Pain Endocrine: Diabetes, Non-Insulin dep History of Blood Disorders: No Family History Heart Disease Prior Level of Function Bed Mobility: 6 Transfers: 6 Gait: 6 Stairs: 6 Indoor Mobility (Ambulation): Independent Stairs: Independent Prior Devices Use: None Self Care: Independent Functional Cognition: Independent Drive Self: Yes Leisure Interests: BINGO Current Level of Fuctioning Roll Left to Right: 4 Sit to Lyin Lying to Sitting/Side of Bed: 4 Sit to Stand: 3 Chair/Afo-oj-Jjivu Xfer: 4 Car Transfer: 4 Does the Patient Walk: Yes Mode of Locomotion: Walk Anticipated Mode of Locomotion: Walk Walk 10 feet: 4 Walk 50 ft with 2 Turns: 4 Walk 150 ft: 4 Walking 10ft on uneven surface: 4 Gait Assistive Device: FWW Does the Pt Use a Wheelchair: No Wheel 50 ft with 2 turns: 9 Wheel 150 ft: 9 #of Steps: 8 1 Step (curb): 4 4 Steps: 3 12 Steps: 88 Picking up an Object: 4 Eatin (Pt reports IND with meals, even when she has some numbness or shakiness.) Oral Hygiene: 7 Shower/Bathe Self: 7 Upper Body Dressin Lower Body Dressin On/Off Footwear: 7 Toileting Hygiene: 4 (Supervision) PM&R Allergy/Meds/Data Review Allergies Coded Allergies: codeine (Verified Allergy, Unknown, 09/15/17) meperidine (Verified Allergy, Unknown, 09/15/17) morphine (Verified Allergy, Unknown, 09/15/17) Home Medications Scheduled Amiodarone HCl (Pacerone), 100 MG PO DAILY, (Reported) Atorvastatin Calcium (Atorvastatin Calcium), 20 MG PO HS, (Reported) Carvedilol (Carvedilol), 25 MG PO BID, (Reported) Cholecalciferol (Vitamin D3) (Vitamin D3), 25 MCG PO DAILY, (Reported) Diltiazem HCl (Diltiazem ER), 180 MG PO DAILY, (Reported) Ferrous Sulfate (Ferrous Sulfate), 325 MG PO DAILY, (Reported) Furosemide (Furosemide), 20 MG PO DAILY, (Reported) Gabapentin (Gabapentin), 100 MG PO BID, (Reported) Isosorbide Mononitrate (Isosorbide Mononitrate ER), 60 MG PO DAILY, (Reported) Lisinopril (Lisinopril), 20 MG PO DAILY, (Reported) Naproxen (Naproxen), 500 MG PO BID Nitrofurantoin Monohyd/M-Cryst (Macrobid 100 mg Capsule), 1 TAB PO BID Scheduled PRN Benzonatate (Tessalon Perles), 100 MG PO Q6H PRN for COUGH Cyclobenzaprine HCl (Cyclobenzaprine HCl), 10 MG PO Q8H PRN for SPASMS Ondansetron (Ondansetron Odt), 4 MG PO Q6H PRN for NAUSEA/VOMITING-1ST LINE, (Reported) Tramadol HCl (Ultram), 50 MG PO Q6H PRN for NAUSEA/VOMITING Tramadol HCl (Ultram), 50 MG PO Q6H PRN for PAIN-MODERATE (5-7) Current Medications Current Medications Reviewed Review of Systems Constitutional: see HPI, malaise, weakness EENTM: no symptoms reported Respiratory: no symptoms reported Cardiovascular: no symptoms reported Gastrointestinal: no symptoms reported Genitourinary: no symptoms reported Musculoskeletal: back pain, joint pain Skin: no symptoms reported Psychiatric/Neurological: Depressed, Headache, Numbness, Paresthesia, Tingling, Weakness All Other Systems Reviewed Negative Unless Noted: Yes Physical Exam Physical Exam Vital Signs Capillary Refill : Height, Weight, BMI Height: 5'5.00" Weight: 247lbs. 0.0oz. [id number]; 37.22 BMI Method:Estimated General Appearance: No Apparent Distress, WD/WN, Chronically ill, Obese Eyes: Bilateral Eye Normal Inspection, Bilateral Eye PERRL HEENT: PERRL/EOMI, Normal ENT Inspection, Pharynx Normal Neck: Full Range of Motion, Normal Inspection, Non Tender, Supple, Carotid Bruit Respiratory: Chest Non Tender, Lungs Clear, Normal Breath Sounds, No Accessory Muscle Use, No Respiratory Distress Cardiovascular: Regular Rate, Rhythm, No Edema, No Gallop, No JVD, No Murmur, Normal Peripheral Pulses Gastrointestinal: Normal Bowel Sounds, No Organomegaly, No Pulsatile Mass, Non Tender, Soft Back: Normal Inspection, No CVA Tenderness, No Vertebral Tenderness Extremity: Normal Capillary Refill, Normal Inspection, Normal Range of Motion, Non Tender, No Calf Tenderness, No Pedal Edema Neurologic/Psychiatric: Alert, Oriented x3, pediatric physiatrist II-XII Norm as Tested, Abnormal Gait, Depressed Affect, Motor Weakness (Lower extremities 3/5) Skin: Normal Color, Warm/Dry Lymphatic: No Adenopathy PM&R Medical Assessment & Plan REHAB/MEDICAL ASSESSMENT AND PLAN: REHAB IMPAIRMENT GROUP: Acute immune mediated polyneuropathy ETIOLOGIC DIAGNOSIS: Acute immune mediated polyneuropathy The comorbidities that impact the patients function and/or functional outcome by: Severe debility from polyneuropathy, increased BMI, recent MD, advanced age REHAB PLAN: The patient is being admitted to our comprehensive inpatient rehabilitation facility and can tolerate the intensity of service consisting of at least: 180 minutes of therapy a day, 5 out of 7 days a week Rehab treatment will consist of: PT and OT will focus on regaining function with use of assistive devices in order to increase ADL independence in order to return back home to live independently The patient/family has a good understanding of our discharge process and will benefit from an interdisciplinary inpatient rehabilitation program. The patient has potential to make improvement and is in need of at least two of the following multidisciplinary therapies including but not limited to physical, occupational, speech, and prosthetics and orthotics. Additionally the patient will need services from respiratory, nutritional services, wound care, psychology, etc. (Customize this to each patient). Given the patients complex condition and risk of further medical complications, rehabilitation services cannot be safely or effectively provided at a lower level of care such as a alf facility. BARRIERS TO DISCHARGE: Severe lower extremity weakness ESTIMATED LOS: 10 days DISPOSITION: Home RELEVANT CHANGES SINCE PREADMISSION SCREENING: I have compared the patients medical and functional status at the time of the preadmission screening and there are: no changes PROGNOSIS: Fair REHABILITATION GOALS: 1. PT and OT will focus on regaining function with use of assistive devices in order to increase ADL independence in order to return back home to live independently All the above goals were reviewed with the patient and he/she is in agreement. By signing this document, I acknowledge that I have personally performed a full physical examination on this patient within 24 hours of admission to this inpatient rehabilitation facility and have determined the patient to be able to tolerate the above course of treatment at an intensive level for a reasonable period of time. I will be completing a detailed individualized Plan of Care for this patient by day #4 of the patients stay based upon the Preadmission Screen, the Post-Admission Evaluation, and the therapy evaluations. Admission Dx/Comorbidities: (1) Immune mediated polyneuropathy ICD Codes: D89.89 - Other specified disorders involving the immune mechanism, not elsewhere classified; G63 - Polyneuropathy in diseases classified elsewhere (2) Recent myocardial infarction (3) Atrial fibrillation Status: Chronic ICD Codes: I48.91 - Unspecified atrial fibrillation (4) Non-insulin dependent type 2 diabetes mellitus Status: Chronic ICD Codes: E11.9 - Type 2 diabetes mellitus without complications (5) Essential (primary) hypertension Status: Chronic ICD Codes: I10 - Essential (primary) hypertension Assessment/Plan Assessment and Plan Assess & Plan/Chief Complaint Assessment: 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 Recent MRI maintained on aspirin Chronic atrial fibrillation on Xarelto Hypertension Obesity Diabetes Plan: Inpatient rehab protocol PT and OT Supportive care ESTEVAN FREEMAN DO Dec 22, 2021 17:35
[2021-12-22 18:55] VITALS: BP 126/61
[2021-12-22] MEDS ORDERED: HYDROcodone/APAP 5 MG/325 MG (LORTAB) TAB PO PRN (19:45)
[2021-12-22 19:55] VITALS: BP 126/61
[2021-12-22] MEDS: polyethylene glycoL POWDER 17 GM (MIRALAX) PACK PO SCH (20:52)
[2021-12-22] MEDS: DOCUSATE SODIUM 100 MG (COLACE) CAP PO SCH (21:53)
[2021-12-22] MEDS: GABAPENTIN 600 MG (NEURONTIN) TAB PO SCH (21:53)
[2021-12-22] MEDS: AMIODARONE 200 MG (CORDARONE) TAB PO SCH (21:53)
[2021-12-22] MEDS: SENNA W/DOCUSATE (SENOKOT S) TABLET PO SCH (21:53)
[2021-12-22] MEDS: APIXABAN 5 MG (ELIQUIS) TABLET PO SCH (21:53)
[2021-12-23 05:54] LABS: BASOPHILS % (AUTO) 1 % (0-10); EOSINOPHILS # (AUTO) 0.3 10^3/uL (0.0-0.3); EOSINOPHILS % (AUTO) 6 % (0-10); HEMATOCRIT 34 % (35-52); HEMOGLOBIN 10.5 g/dL (11.5-16.0); LYMPHOCYTES % (AUTO) 35 % (12-44); MEAN CORPUSCULAR HEMOGLOBIN 30 pg (25-34); MEAN CORPUSCULAR HGB CONC 31 g/dL (32-36); MEAN CORPUSCULAR VOLUME 96 fL (80-99); MEAN PLATELET VOLUME 9.5 fL (9.0-12.2); MONOCYTES # (AUTO) 0.7 10^3/uL (0.0-1.0); MONOCYTES % (AUTO) 13 % (0-12); NEUTROPHILS # (AUTO) 2.6 10^3/uL (1.8-7.8); NEUTROPHILS % (AUTO) 46 % (42-75); PLATELET COUNT 273 10^3/uL (130-400); WHITE BLOOD COUNT 5.6 10^3/uL (4.3-11.0)
[2021-12-23 06:13] LABS: ALBUMIN 3.7 GM/DL (3.2-4.5)
[2021-12-23 06:14] LABS: POTASSIUM 3.8 MMOL/L (3.6-5.0)
[2021-12-23 06:15] LABS: CALCIUM 9.1 MG/DL (8.5-10.1)
[2021-12-23 06:18] LABS: BILIRUBIN,TOTAL 0.7 MG/DL (0.1-1.0)
[2021-12-23 06:20] LABS: CREATININE SERUM 0.93 MG/DL (0.60-1.30)
[2021-12-23] MEDS: PANTOPRAZOLE 40 MG (PROTONIX) TAB PO SCH (06:23)
[2021-12-23] MEDS: FERROUS SULF 325 MG (IRON) TAB PO SCH (06:23)
--- NOTE | 2021-12-23 06:36 | PM&R Progress Note ---
Subjective HPI/CC On Admission Date Seen by Provider: Dec 23, 2021 Time Seen by Provider: 09:00 Subjective/Events-last exam 12/23/2021: Doing well Improved status Ambulating well Will continue strengthening Submitting progress to insurance Review of Systems General: Fatigue, Malaise Objective Exam Vital Signs Vital Signs Date Time Temp Pulse Resp B/P (MAP) Pulse Ox O2 Delivery O2 Flow Rate FiO2 12/23/21 09:00 Room Air 12/23/21 07:53 36.1 60 18 138/62 (87) 97 Capillary Refill : General Appearance: No Apparent Distress, WD/WN, Chronically ill, Obese HEENT: PERRL/EOMI, Normal ENT Inspection, Pharynx Normal Neck: Full Range of Motion, Normal Inspection, Non Tender, Supple, Carotid Bruit Respiratory: Chest Non Tender, Lungs Clear, Normal Breath Sounds, No Accessory Muscle Use, No Respiratory Distress Cardiovascular: Regular Rate, Rhythm, No Edema, No Gallop, No JVD, No Murmur, Normal Peripheral Pulses Gastrointestinal: Normal Bowel Sounds, No Organomegaly, No Pulsatile Mass, Non Tender, Soft Back: Normal Inspection, No CVA Tenderness, No Vertebral Tenderness Extremity: Normal Capillary Refill, Normal Inspection, Normal Range of Motion, Non Tender, No Calf Tenderness, No Pedal Edema Neurologic/Psychiatric: Alert, Oriented x3, obstetrics nurse practitioner II-XII Norm as Tested, Abnormal Gait, Depressed Affect, Motor Weakness (Lower extremities 3/5) Skin: Normal Color, Warm/Dry Lymphatic: No Adenopathy Results/Procedures Lab Laboratory Tests 12/23/21 05:35 Patient resulted labs reviewed. FIM Transfers Therapy Code Descriptions/Definitions Functional [place] Measure: 0=Not Assessed/NA 4=Minimal Assistance 1=Total Assistance 5=Supervision or Setup 2=Maximal Assistance 6=Modified [place] 3=Moderate Assistance 7=Complete IndependenceSCALE: Activities may be completed with or without assistive devices. 4-Bgpeqeikyz-tdexoez completes the activity by him/herself with no assistance from a helper. 5-Set-up or Clean-up Assistance-helper sets up or cleans up; patient completes activity. [place] assists only prior to or following the activity. 4-Supervision or Touching Assistance-helper provides verbal cues and/or touching/steadying and/or contact guard assistance as patient completes activity. Assistance may be provided throughout the activity or intermittently. 3-Partial/Moderate Assistance-helper does LESS THAN HALF the effort. [place] lifts, holds or supports trunk or limbs, but provides less than half the effort. 2-Substantial/Maximal Assistance-helper does MORE THAN HALF the effort. [place] lifts or holds trunk or limbs and provides more than half the effort. 7-Mqzewzads-ptigjv does ALL the effort. Patient does none of the effort to complete the activity. Or, the assistance of 2 or more helpers is required for the patient to complete the activity. If activity was not attempted, code reason: 7-Patient Refused. 9-Not Applicable-not attempted and the patient did not perform the activity before the current illness, exacerbation or injury. 10-Not Attempted due to Environmental Limitations-(lack of equipment, weather restraints, etc.). 88-Not Attempted due to Medical Conditions or Safety Concerns. Roll Left to Right (QC): 4 Sit to Lying (QC): 4 Sit to Stand (QC): 3 Chair/Vhm-vk-Dmmle Xfer(QC): 4 Car Transfer (QC): 4 Gait Training Does the Patient Walk?: Yes Distance: 150 x2 Walk 10 feet (QC): 4 Walk 50 ft with 2 Turns(QC): 4 Walk 150 ft (QC): 4 Walking 10ft/uneven surface-QC: 4 Gait Assistive Device: FWW Wheelchair Training Does the Pt Use a Wheelchair?: No Wheel 50 ft with 2 turns (QC): 9 Wheel 150 ft (QC): 9 Stair Training #of Steps: 8 1 Step (curb) (QC): 4 4 Steps (QC): 3 12 Steps (QC): 88 Balance Picking up an Object (QC): 4 ADL-Treatment Eating (QC): 6 (Pt reports IND with meals, even when she has some numbness or shakiness.) Oral Hygiene (QC): 7 Shower/Bathe Self (QC): 7 Upper Body Dressing (QC): 7 Lower Body Dressing (QC): 7 On/Off Footwear (QC): 7 Toileting Hygiene (QC): 4 (Supervision) Assessment/Plan Assessment and Plan Assess & Plan/Chief Complaint Assessment: 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 Recent MRI maintained on aspirin Chronic atrial fibrillation on Xarelto Hypertension Obesity Diabetes Plan: Inpatient rehab protocol PT and OT Supportive care 12/23/2021: Monitor progress Aggressive therapy (1) Immune mediated polyneuropathy (2) Recent myocardial infarction (3) Atrial fibrillation Status: Chronic (4) Non-insulin dependent type 2 diabetes mellitus Status: Chronic (5) Essential (primary) hypertension Status: Chronic ESTEVAN FREEMAN DO Dec 23, 2021 06:36
--- NOTE | 2021-12-23 06:36 | Individualized Plan of Care ---
Individualized Plan of Care Rehab Nursing IPOC Order Admission Date Dec 22, 2021 at 15:04 Current Orders Orders Admission Order(Inpt,Obs,Sdc) (12/22/21 12:13) Vital Signs: Per Unit Policy ( ,16,00 (12/22/21 12:13) Hayden Hernandes (12/22/21 12:13) Sequential Compression Device (12/22/21 12:13) Car Cleaning Supervisor-Inpt Rehab Con (12/22/21 12:13) Rehab Nursing Orders-Ipoc (12/22/21 12:13) Physical Therapy Rehab Orders (12/22/21 12:13) Occupational Therapy Rehab Ord (12/22/21 12:13) Speech Therapy Rehab Orders (12/22/21 12:13) Cbc With Automated Diff (12/23/21 06:00) Comprehensive Metabolic Panel (12/23/21 06:00) Precautions (Aru) (12/22/21 12:13) Weekly Weight WEEK (12/22/21 12:13) Rehab-Intensity Of Therapy (12/22/21 12:13) Initiate Admission Nursing Pro .admission (12/22/21 12:13) Alprazolam Tablet (Xanax Tablet) (12/22/21 12:15) Calcium Carbonate Chew Tablet (Antacid C (12/22/21 12:15) Diphenhydramine Tablet (Benadryl Tablet) (12/22/21 12:15) Docusate Sodium Capsule (Colace Capsule) (12/22/21 21:00) Docusate Sodium Capsule (Colace Capsule) (12/22/21 12:15) Bisacodyl Suppository (Dulcolax Supposit (12/22/21 12:15) Lactulose Oral Solution (Enulose Oral So (12/22/21 12:15) Na Phos/Na Biphos Enema (Fleet Enema Doug (12/22/21 12:15) Loperamide Tablet (Imodium Tablet) (12/22/21 12:15) Melatonin Tablet (Melatonin Tablet) (12/22/21 12:15) Polyethylene Glycol Powder Pkt (Miralax (12/22/21 21:00) Ondansetron Oral Dissolve Tab (Zofran (12/22/21 12:15) Senna S Tablet (Senokot S Tablet) (12/22/21 21:00) Acetaminophen Tablet/Caplet (Tylenol T (12/22/21 12:15) Code/Resuscitation (12/22/21 12:13) Initiate Admission Nursing Pro .admission (12/22/21 12:13) Admission Arrival Bed Request (12/22/21 15:07) Heart Healthy (12/22/21 Dinner) Amiodarone Tablet (Cordarone Tablet) (12/22/21 21:00) Apixaban Tablet (Eliquis Tablet) (12/22/21 21:00) Aspirin Enteric Coated Tablet (Ecotrin T (12/23/21 09:00) Atorvastatin Tablet (Lipitor Tablet) (12/22/21 21:00) Ferrous Sulfate Tablet (Feosol Tablet) (12/23/21 07:00) Furosemide Tablet (Lasix Tablet) (12/23/21 09:00) Gabapentin Capsule/Tablet (Neurontin Cap (12/22/21 21:00) Hydrocodone/Apap 5/325 Tablet (Lortab 5 (12/22/21 19:45) Isosorbide Mononitrate Tablet (Imdur Tab (12/23/21 09:00) Diltiazem Cd 24 Hr Capsule (Cardizem Cd (12/23/21 09:00) Lisinopril Tablet (Zestril Tablet) (12/23/21 09:00) Pantoprazole Tablet (Protonix Tablet) (12/23/21 07:00) Carvedilol Tablet (Coreg Tablet) (12/23/21 08:00) Famotidine Tablet (Pepcid Tablet) (12/23/21 09:00) Patient Visit (12/23/21 ) Speech Sound Lang Comp (12/23/21 ) Treat. Speech/Lang/Voice (12/23/21 ) Patient Visit (12/23/21 ) Gait Training, Ea 15 Min (12/23/21 ) Exercise Therap, Ea 15 Min (12/23/21 ) Ekg Tracing (12/23/21 15:26) Rehab Nursing Orders: Ongoing Assess. of Function Status, Bladder Management, B ladder Scan, Bladder Training, Bowel Management, Bowel Training, Disease Management & Educaiton, DVT Prophylaxis, Fall Prevention, Fluid/Electrolyte/Nutrition Mgmt, Infection Prevention, Medication Management & Education, Management of Risks & Complications, Management of Skin Intergrity, Nutrition Management, Pain Management, Patient/Family Support, Safety Management Intensity of Therapy to be met Patient to be seen: Min.3h per day/5 of 7d PT IPOC Problem List: Activity Tolerance, Functional Strength Treatment Plan: Continue Plan of Care Bed Mobility, Education, Functional Activity Pauline, Functional Strength, Group Therapy, Gait, Safety, Therapeutic Exercise, Transfers Treatment Duration: Jan 13, 2022 Frequency: At least 5 of 7 days/Wk (IRF) Estimated Hrs Per Day: 1.5 hours per day OT IPOC Problems: Decreased Activ Tolerance, Decreased UE Strength, Impaired Funct Balance, Impaired I ADL's, Impaired Self-Care Skills OT Treatment, Training and Edu: Yes Plan of Care: ADL Retraining, Functional Mobility, Group Exercise/Act as Ind, UE Funct Exercise/Act Treatment Duration: Jan 15, 2022 Frequency: At least 5 of 7 days/Wk (IRF) Estimated Hrs Per Day: 1.[address] IPOC Speech Therapy Treatment Plan: Discontinue ST Treatment Duration: Dec 23, 2021 Frequency: Modified Program (IRF) Estimated Hrs Per Day: Other Car Cleaning Supervisor/Case Mgmt Car Cleaning Supervisor/Case Managemen: Discharge Planning Dietitian/Rock Climbing Team Member Dietitian/Rock Climbing Team Member to monitor nutritional status and make changes and/or recommendations as needed and work with speech pathology on dietary upgrades as the occur. Physician IPOC Medical Issues being managed closely and that require the 24 hour availability of a physician: Recent polyneuropathy along with NSTEMI with h/o AF will require close monitoring for any cardiac dysfunction Medical Issues: Bowel/Bladder Function, DVT Prophylaxis, Falls Precautions, Fluid/Electrolyte/Nutrition Balance, Infection Protection, Pain Management Brief Synthesis of Preadmission Screen, Post-Admission Evaluation, and Therapy Evaluations: PT OT will focus on regaining function with the use of walker and other assistive devices in order to return back home Medical Prognosis: Good Anticipated Length of Stay: 5 days ESTEVAN FREEMAN DO Dec 23, 2021 06:36
[2021-12-23 07:53] VITALS: BP 138/62
--- NOTE | 2021-12-23 08:36 | Occupational Ther Daily Note ---
OT Current Status-Daily Note Subjective Pt seated in recliner upon OT arrival, agreeable to tx. Pt reports not being able to sleep well the night before d/t BLE pain/discomfort. She said her legs hurt when she moved them, the pain subsided after a while, and then they flared up again when she moved them. Mental Status/Objective Patient Orientation: Person, Place, Situation ADL-Treatment Therapy Code Descriptions/Definitions Functional [place] Measure: 0=Not Assessed/NA 4=Minimal Assistance 1=Total Assistance 5=Supervision or Setup 2=Maximal Assistance 6=Modified [place] 3=Moderate Assistance 7=Complete IndependenceSCALE: Activities may be completed with or without assistive devices. 8-Vjvvgmhvlt-stuganu completes the activity by him/herself with no assistance from a helper. 5-Set-up or Clean-up Assistance-helper sets up or cleans up; patient completes activity. [place] assists only prior to or following the activity. 4-Supervision or Touching Assistance-helper provides verbal cues and/or touching/steadying and/or contact guard assistance as patient completes activity. Assistance may be provided throughout the activity or intermittently. 3-Partial/Moderate Assistance-helper does LESS THAN HALF the effort. [place] lifts, holds or supports trunk or limbs, but provides less than half the effort. 2-Substantial/Maximal Assistance-helper does MORE THAN HALF the effort. [place] lifts or holds trunk or limbs and provides more than half the effort. 5-Tdconewnj-otqjwc does ALL the effort. Patient does none of the effort to complete the activity. Or, the assistance of 2 or more helpers is required for the patient to complete the activity. If activity was not attempted, code reason: 7-Patient Refused. 9-Not Applicable-not attempted and the patient did not perform the activity before the current illness, exacerbation or injury. 10-Not Attempted due to Environmental Limitations-(lack of equipment, weather restraints, etc.). 88-Not Attempted due to Medical Conditions or Safety Concerns. Oral Hygiene (QC): 4 (SBA for standing balance) Shower/Bathe Self (QC): 4 (SBA for standing balance during buttocks/periarea hygiene) Upper Body Dressing (QC): 5 Lower Body Dressing (QC): 4 (SBA for standing balance during pant hike) On/Off Footwear: 5 Other Treatment Pt stood from recliner with SBA and walked into the bathroom to complete sandra wering, dressing, and oral care/grooming tasks. Pt is decently proficient with energy conservation techniques but requires v/c's for FWW placement and safety during tasks. After self-care tasks, pt rested in recliner for ~3min before walking to therapy gym with FWW, SBA. She completed 10min seated on arm bike (55 alvarado of resistance) followed by the nuts and bolts board with 1lb wrist weights. Both activities worked to increase pt's BUE strength and activity tolerance. Pt tolerated both activities well, no c/o increasing pain and minimal SOB. Post tx, pt left in therapy gym with PT, all needs met. Education OT Patient Education: Correct positioning, Energy conservation, Exercise program, Modified ADL techniques, Progress toward Goal/Update tx plan, Purpose of tx/functional activities, Rehab process, Transfer techniques Teaching Recipient: Patient Teaching Methods: Discussion Response to Teaching: Verbalize Understanding OT Short Term Goals Short Term Goals Time Frame: Jan 01, 2022 Shower/bathe self: 5 Upper body dressin Lower body dressin Putting on/taking off footwear: 5 OT Halfway Goals Halfway Goals Time Frame: Jan 15, 2022 Eating (QC): 6 Oral Hygiene (QC): 6 Toileting Hygiene (QC): 6 Shower/Bathe Self (QC): 6 Upper Body Dressing (QC): 6 Lower Body Dressing (QC): 6 On/Off Footwear (QC): 6 Additional Goals: 1-Demonstrate ADL Tasks, 2-Verbalize Understanding, 3- ImproveStrength/Pauline 1=Demonstrate adherence to instructed precautions during ADL tasks. 2=Patient will verbalize/demonstrate understanding of assistive devices/modifications for ADL. 3=Patient will improve strength/tolerance for activity to enable patient to perform ADL's. OT Education/Plan Problem List/Assessment Assessment: Decreased Activ Tolerance, Decreased UE Strength, Impaired Funct Balance, Impaired I ADL's, Impaired Self-Care Skills Discharge Recommendations Plan/Recommendations: Continue POC Treatment Plan/Plan of Care Patient would benefit from OT for education, treatment and training to promote independence in ADL's, mobility, safety and/or upper extremity function for ADL's. Plan of Care: ADL Retraining, Functional Mobility, Group Exercise/Act as Ind, UE Funct Exercise/Act Treatment Duration: Jan 15, 2022 Frequency: At least 5 of 7 days/Wk (IRF) Estimated Hrs Per Day: 1.5 hours per day Agreement: Yes Rehab Potential: Good Time/GCodes Start Time: 07:45 Stop Time: 09:00 Total Time Billed (hr/min): 75 Billed Treatment Time 1, ADL 2 (30'), Ex (10'), FA 2 (35') MARSHAL KELLY OT Dec 23, 2021 08:36
[2021-12-23] MEDS: FAMOTIDINE 20 MG (PEPCID) TABLET PO SCH (08:53)
[2021-12-23] MEDS: FUROSEMIDE 40 MG (LASIX) TAB PO SCH (08:53)
[2021-12-23] MEDS: APIXABAN 5 MG (ELIQUIS) TABLET PO SCH ×2 (08:53→20:51)
[2021-12-23] MEDS: ISOSORBIDE MONONITRATE 60 MG (IMDUR) TAB PO SCH (08:53)
[2021-12-23] MEDS: polyethylene glycoL POWDER 17 GM (MIRALAX) PACK PO SCH ×2 (08:53→20:59)
[2021-12-23] MEDS: DOCUSATE SODIUM 100 MG (COLACE) CAP PO SCH ×2 (08:53→20:51)
[2021-12-23] MEDS: SENNA W/DOCUSATE (SENOKOT S) TABLET PO SCH ×2 (08:53→20:51)
[2021-12-23] MEDS: GABAPENTIN 600 MG (NEURONTIN) TAB PO SCH ×3 (08:57→20:52)
[2021-12-23] MEDS: lisINopril 20 MG (PRINIVIL) TABLET PO SCH (08:57)
[2021-12-23] MEDS: ASPIRIN E.C. 81 MG (ECOTRIN) TAB PO SCH (09:54)
--- NOTE | 2021-12-23 10:08 | Physical Therapy Daily Note ---
PT Daily Note-Current Subjective Patient sitting in chair finishing OT treatment upon PT arrival, agreeable to treatment. Reports 0/10 pain currently, however reports most of the night last night her legs hurt. She rates the pain at "25/10" when it occurs, however notes the left LE pain is worst than the right. Mental Status Patient Orientation: Person, Place, Time, Situation Transfers SCALE: Activities may be completed with or without assistive devices. 5-Syjmtdtftk-oagwrul completes the activity by him/herself with no assistance from a helper. 5-Set-up or Clean-up Assistance-helper sets up or cleans up; patient completes activity. [place] assists only prior to or following the activity. 4-Supervision or Touching Assistance-helper provides verbal cues and/or touching/steadying and/or contact guard assistance as patient completes activity. Assistance may be provided throughout the activity or intermittently. 3-Partial/Moderate Assistance-helper does LESS THAN HALF the effort. [place] lifts, holds or supports trunk or limbs, but provides less than half the effort. 2-Substantial/Maximal Assistance-helper does MORE THAN HALF the effort. [place] lifts or holds trunk or limbs and provides more than half the effort. 3-Ncyugsing-nggxkl does ALL the effort. Patient does none of the effort to complete the activity. Or, the assistance of 2 or more helpers is required for the patient to complete the activity. If activity was not attempted, code reason: 7-Patient Refused. 9-Not Applicable-not attempted and the patient did not perform the activity before the current illness, exacerbation or injury. 10-Not Attempted due to Environmental Limitations-(lack of equipment, weather restraints, etc.). 88-Not Attempted due to Medical Conditions or Safety Concerns. Sit to Stand (QC): 4 Chair/Bse-ji-Bmjev Xfer(QC): 4 Weight Bearing Right Lower Extremity: Right Full Weight Bearing Left Lower Extremity: Left Full Weight Bearing Gait Training Does the Patient Walk?: Yes Distance: 350, 200 Walk 10 feet (QC): 4 Walk 50 ft with 2 Turns(QC): 4 Walk 150 ft (QC): 4 Gait Assistive Device: FWW Exercises Seated Therapy Exercises: Ankle pumps, Long arc quads, Hip flexion, Hamstring Curls, Hip abd/add Seated Reps: 40 Assessment Current Status: Good Progress Patient tolerated treatment well. She requires sitting rest breaks between activities, however only briefly during each rest break. Patient ambulate 350 feet with FWW, with SBA and verbal cues for safety, progression, posture and distance to FWW. Patient performs Nu Step level 1 with UE/LEs x 10 minutes to increase coordination, UE/LE strength and endurance. Patient then performs LE exercises as listed above. Patient ambulates 200 feet with FWW, with SBA back to room. Patient in chair post treatment with all needs met, nursing notified, call light in reach. PT Roving Can Tender Goals Roving Can Tender Goals PT Roving Can Tender Goals Time Frame: Jan 09, 2022 Roll Left & Right (QC): 6 Sit to Lying (QC): 6 Lying-Sitting on Side/Bed(QC): 6 Sit to Stand (QC): 6 Chair/Mec-xl-Zeeca Xfer(QC): 6 Toilet Transfer (QC): 6 Car Transfer (QC): 6 Does the Patient Walk: Yes Walk 10 feet (QC): 6 Walk 50ft with 2 Turns (QC): 6 Walk 150 ft (QC): 4 Walking 10ft on Uneven Surface: 6 1 Step (curb) (QC): 6 4 Steps (QC): 4 12 Steps (QC): 4 Picking up an Object (QC): 6 Does the Pt use WC or Scooter?: No Wheel 50 feet with 2 turns (QC: 9 Wheel 150 feet: 9 PT Plan Treatment/Plan Treatment Plan: Continue Plan of Care Treatment Plan: Bed Mobility, Education, Functional Activity Pauline, Functional Strength, Group Therapy, Gait, Safety, Therapeutic Exercise, Transfers Treatment Duration: Jan 13, 2022 Frequency: At least 5 of 7 days/Wk (IRF) Estimated Hrs Per Day: 1.5 hours per day Patient and/or Family Agrees t: Yes Safety Risks/Education Patient Education: Gait Training, Transfer Techniques Teaching Recipient: Patient Teaching Methods: Demonstration, Discussion Response to Teaching: Verbalize Understanding, Return Demonstration Time/GCodes Time In: 900 Time Out: 1000 Total Billed Treatment Time: 60 Total Billed Treatment Visit, Gait (2), Ex (2) IZABEL MEADOWS PT Dec 23, 2021 10:08
--- NOTE | 2021-12-23 10:57 | ST Cognitive Linguistic Eval ---
Speech Evaluation-General Medical Diagnosis CIPD Onset Date: Nov 22, 2021 Therapy Diagnosis Therapy Diagnosis: Anomia (Mild) Precautions Precautions: Fall Precautions/Isolations: Fall Prevention, Standard Precautions Referral Referring Physician: Dr. Duran Reason for Referral: Evaluation/Treatment Medical History Pertinent Medical History: Atrial Fib, CAD, DM, HTN, Neuropathy Current History The patient is a 71 year-old female with a past medical history of atrial fibrillation, CHF, HTN, CAD, [place], CVA, hyperlipidemia, and chronic lower back pain, who was transferred to [facility] from [facility] with a diagnosis of CIPD. Reviewed History: Yes Social History Current Living Status: Spouse Speech PLF-Current Status Prior Level of Function The patient denied prior challenges with her speech, language and cognition. Per patient, she feels she has experienced increased difficulty with word-finding throughout her recent hospitalization(s). Subjective The patient was seated upright in her recliner, awake and alert upon entrance to her room by the clinician. The patient greeted the clinician appropriately and was agreeable to participation in the cognitive linguistic assessment. Language Eval: Auditory Comprehends Simple Yes/No Ques: Functional Indent/Objects [place]: Functional Ident/Pics in [place]: Functional Follows 1-Step Commands: Functional Follows General Conversations: Functional Language Eval: Verbal Language Completes Spontaneous Greeting: Functional Produces Auto, Serial Info: Functional Imitates Simple Words/Phrases: Functional Word Finding: Mild Requests Basic Needs: Functional States Basic Personal Info: Functional Language Evaluation: Reading Follows Simple Written Direct: Functional Language Evaluation: Writing Writes to Simple Dictation: Functional Cognitive Patient Orientation The patient is independently oriented to self, location, month, day of the week, date and year. Objective Cognitive Domain Attention: WNL Memory: WNL Problem Solving: Functional Composite Severity Rating: WNL Clock Drawing Severity Rating: WNL Objective Formal/Standardized Tests [facility] Mental Status Exam (UMS) Results The patient demonstrated a result of +28/30 on the SLUMS correlating to neurocognitive skills within normal limits. Oral Motor/Speech Production The patient does not display dysarthria or apraxia of speech. The patient is 100% intelligible in known and unknown contexts. Impression The patient demonstrated intact neurocognitive skills. As the patient does report increased difficulty with word-finding and displayed a slight decline in accuracy throughout the generative naming tasks, the clinician will provide services targeted at improving mild anomia present. Speech Patient Assess Expression of Ideas/Wants: Expression (4) Understanding Verbal Content: Understands (4) Brief Interview-Mental Status: Yes Repetition of Three Words: Three (3) Temporal Orientation: Year: Correct (3) Temporal Orientation: Month: Accurate within 5 days(2) Temporal Orientation: Day: Correct (1) Recall : Wear to say "Sock": Yes, no cue required (2) Recall : Color: Yes, no cue required (2) Recall : Bed: Yes, no cue required (2) Memory/Recall Ability: Current season, That he or she is in a hsp/hsp unit Speech Short Term Goals Short Term Goals Short Term Goals The patient will demonstrated 80% accuracy with word-finding exercises with mild clinician verbal cueing. Time Frame-STG: Five Days. Speech Assisted Goals Assisted Goals The patient will demonstrated increased cognitive linguistic skills for safe discharge to the least restrictive environment. Time Frame: Ten Days. Speech-Plan Treatment Plan Speech Therapy Treatment Plan: Continue Plan of Care Treatment Duration: Jan 01, 2022 Frequency: Modified Program (IRF) (Three to five times per week.) Estimated Hrs Per Day: .5 hour per day Rehab Potential: Good Safety Risks/Education Teaching Recipient: Patient Teaching Methods: Discussion Response to Teaching: Verbalize Understanding Education Topics Provided: Results of SEBAS SOTO Speech Therapy Time In: 10:00 Speech Therapy Time Out: 10:30 Total Billed Time: 30 Billed Treatment Time 1, DELMER ALEXANDRA ELIZABETH ST Dec 23, 2021 10:57
--- NOTE | 2021-12-23 14:05 | Physical Therapy Daily Note ---
PT Daily Note-Current Subjective Patient sitting in chair upon PT arrival, agreeable to treatment. Patient rates pain currently at 0/10, however within the first 50 feet of gait she reports the pain in her left posterior thigh is becoming worse. Mental Status Patient Orientation: Person, Place, Time, Situation Transfers SCALE: Activities may be completed with or without assistive devices. 2-Uonjcmkdik-qomsqik completes the activity by him/herself with no assistance from a helper. 5-Set-up or Clean-up Assistance-helper sets up or cleans up; patient completes activity. [place] assists only prior to or following the activity. 4-Supervision or Touching Assistance-helper provides verbal cues and/or touching/steadying and/or contact guard assistance as patient completes activity. Assistance may be provided throughout the activity or intermittently. 3-Partial/Moderate Assistance-helper does LESS THAN HALF the effort. [place] lifts, holds or supports trunk or limbs, but provides less than half the effort. 2-Substantial/Maximal Assistance-helper does MORE THAN HALF the effort. [place] lifts or holds trunk or limbs and provides more than half the effort. 6-Ntobbpikn-qybauh does ALL the effort. Patient does none of the effort to complete the activity. Or, the assistance of 2 or more helpers is required for the patient to complete the activity. If activity was not attempted, code reason: 7-Patient Refused. 9-Not Applicable-not attempted and the patient did not perform the activity before the current illness, exacerbation or injury. 10-Not Attempted due to Environmental Limitations-(lack of equipment, weather restraints, etc.). 88-Not Attempted due to Medical Conditions or Safety Concerns. Sit to Stand (QC): 3 Chair/Wdv-ka-Kehhf Xfer(QC): 3 Weight Bearing Right Lower Extremity: Right Full Weight Bearing Left Lower Extremity: Left Full Weight Bearing Gait Training Does the Patient Walk?: Yes Distance: 200, 100, 150 Walk 10 feet (QC): 4 Walk 50 ft with 2 Turns(QC): 3 Walk 150 ft (QC): 3 Gait Persons Needed: 1 Gait Assistive Device: FWW Wheelchair Training Does the Pt Use a Wheelchair?: No Assessment Current Status: Fair Progress Patient tolerated this treatment session more poorly. She required additional sitting rest breaks, reports increased pain in her left LE and demonstrates a moderate decline in gait pattern with decreased stance time on the left LE. Patient ambulates 200, 100, 150 feet with sitting rest break in between each distance. Patient in chair post treatment with all needs met, nursing notified, call light in hand. PT Care Home Goals Care Home Goals PT Care Home Goals Time Frame: Jan 09, 2022 Roll Left & Right (QC): 6 Sit to Lying (QC): 6 Lying-Sitting on Side/Bed(QC): 6 Sit to Stand (QC): 6 Chair/Kzq-dr-Jzptw Xfer(QC): 6 Toilet Transfer (QC): 6 Car Transfer (QC): 6 Does the Patient Walk: Yes Walk 10 feet (QC): 6 Walk 50ft with 2 Turns (QC): 6 Walk 150 ft (QC): 4 Walking 10ft on Uneven Surface: 6 1 Step (curb) (QC): 6 4 Steps (QC): 4 12 Steps (QC): 4 Picking up an Object (QC): 6 Does the Pt use WC or Scooter?: No Wheel 50 feet with 2 turns (QC: 9 Wheel 150 feet: 9 PT Plan Treatment/Plan Treatment Plan: Continue Plan of Care Treatment Plan: Bed Mobility, Education, Functional Activity Pauline, Functional Strength, Group Therapy, Gait, Safety, Therapeutic Exercise, Transfers Treatment Duration: Jan 13, 2022 Frequency: At least 5 of 7 days/Wk (IRF) Estimated Hrs Per Day: 1.5 hours per day Patient and/or Family Agrees t: Yes Safety Risks/Education Patient Education: Gait Training, Transfer Techniques Teaching Recipient: Patient Teaching Methods: Demonstration, Discussion Response to Teaching: Verbalize Understanding, Return Demonstration Time/GCodes Time In: 1327 Time Out: 1342 Total Billed Treatment Time: 15 Total Billed Treatment Visit, IZABEL Selby PT Dec 23, 2021 14:05
--- NOTE | 2021-12-23 14:12 | Consultation-Cardiology ---
HPI-Cardiology Cardiology Consultation Date of Consultation 12/23/21 Date of Admission Time Seen by Provider: 09:00 Indication: Hx CAD, chronic afib HPI Patient is a 71 y/o female, history of CAD, chronic afib, PPM. Primary roll clamp operator is Dr. Cooper. Has been in IRF d/t CIDP with BLE weakness. Denies any chest pain, dypsnea, dizziness or lightheadeness. Home Medications & Allergies Allergies: Coded Allergies: codeine (Verified Allergy, Unknown, 09/15/17) meperidine (Verified Allergy, Unknown, 09/15/17) morphine (Verified Allergy, Unknown, 09/15/17) Home Medication List Reviewed: Yes XLD-Pmimxe-[place] Hx Patient Social History Marital Status: Employed/Student: retired Drug of Choice: DENIES Smoking Status: Never a Smoker 2nd Hand Smoke Exposure: No Recent Hopitalizations: No Have you traveled recently?: No Alcohol Use?: No Immunizations Up To Date Tetanus Booster (TDap): Unknown Date of Pneumonia Vaccine: Feb 17, 2017 Past Medical History CAD, afib, PPM, HTN Family Medical History Significant Family History: Heart Disease Review of Systems-General Review of Systems Constitutional: see HPI, malaise, weakness EENTM: no symptoms reported Respiratory: no symptoms reported Cardiovascular: no symptoms reported Gastrointestinal: no symptoms reported Genitourinary: no symptoms reported Musculoskeletal: back pain, joint pain Skin: no symptoms reported Psychiatric/Neurological: Depressed, Headache, Numbness, Paresthesia, Tingling, Weakness All Other Systems Reviewed Negative Unless Noted: Yes Reviewed Test Results Reviewed Test Results Lab Laboratory Tests 12/23/21 05:35: White Blood Count 5.6, Red Blood Count 3.53L, Hemoglobin 10.5L, Hematocrit 34L, Mean Corpuscular Volume 96, Mean Corpuscular Hemoglobin 30, Mean Corpuscular Hemoglobin Concent 31L, Red Cell Distribution Width 14.6H, Platelet Count 273, Mean Platelet Volume 9.5, Immature Granulocyte % (Auto) 1, Neutrophils (%) (Auto) 46, Lymphocytes (%) (Auto) 35, Monocytes (%) (Auto) 13H, Eosinophils (%) (Auto) 6, Basophils (%) (Auto) 1, Neutrophils # (Auto) 2.6, Lymphocytes # (Auto) 2.0, Monocytes # (Auto) 0.7, Eosinophils # (Auto) 0.3, Basophils # (Auto) 0.0, Immature Granulocyte # (Auto) 0.0, Sodium Level 141, Potassium Level 3.8, Chloride Level 110H, Carbon Dioxide Level 22, Anion Gap 9, Blood Urea Nitrogen 26H, Creatinine 0.93, Estimat Glomerular Filtration Rate 65, BUN/Creatinine Ratio 28, Glucose Level 104, Calcium Level 9.1, Corrected Calcium 9.3, Total Bilirubin 0.7, Aspartate Amino Transf (AST/SGOT) 8, Alanine Aminotransferase (ALT/SGPT) 11, Alkaline Phosphatase 72, Total Protein 6.0L, Albumin 3.7 Physical Exam Physical Exam Vital Signs Vital Signs - First Documented 12/22/21 12/22/21 15:30 18:55 Temp 36.5 Pulse 61 Resp 20 B/P (MAP) 126/61 (82) Pulse Ox 94 O2 Delivery Room Air Capillary Refill : Height, Weight, BMI Height: 5'5.00" Weight: 247lbs. 0.0oz. [id number]; 37.22 BMI Method:Estimated General Appearance: No Apparent Distress, WD/WN, Chronically ill, Obese Eyes: Bilateral Eye Normal Inspection, Bilateral Eye PERRL HEENT: PERRL/EOMI, Normal ENT Inspection, Pharynx Normal Neck: Full Range of Motion, Normal Inspection, Non Tender, Supple, Carotid Bruit Respiratory: Chest Non Tender, Lungs Clear, Normal Breath Sounds, No Accessory Muscle Use, No Respiratory Distress Cardiovascular: Regular Rate, Rhythm, No Edema, No Gallop, No JVD, No Murmur, Normal Peripheral Pulses Gastrointestinal: Normal Bowel Sounds, No Organomegaly, No Pulsatile Mass, Non Tender, Soft Back: Normal Inspection, No CVA Tenderness, No Vertebral Tenderness Extremity: Normal Capillary Refill, Normal Inspection, Normal Range of Motion, Non Tender, No Calf Tenderness, No Pedal Edema Neurologic/Psychiatric: Alert, Oriented x3, weathercaster II-XII Norm as Tested, Abnormal Gait, Depressed Affect, Motor Weakness (Lower extremities 3/5) Skin: Normal Color, Warm/Dry Lymphatic: No Adenopathy A/P-Cardiology Admission Diagnosis CIDP CAD afib HTN Assessment/Plan 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 Receiving PT/OT CAD, Cardiac cath of September 15, [address] Wong showed mild dz to LAD; mild dz to L cx; patent stents to the prox and distal RCA Stress test done 08-01-20 is suggestive of a small to moderate amount of anterior ischemia. Normal regional wall motion. Normal global left ventricular systolic function with a calculated ejection fraction of 71%. Did not warrant LHC. Recent cardiac catheterization was done at [facility] did not require any stenting Dilated ischemic cardiomyopathy and h/o systolic CHF, compensated Echocardiogram of 07-31-20 showed LVEF 55-65%. Grade 1 diastolic dysfunction. LA mildly to mod dilated. AoV thickening consistent with sclerosis. Mild to mod MR. Bi-ventricular ICD (implanted by Dr. Zapata, implanted 2016) Chronic a-fib, OAC with Eliquis HTN, controlled, continue to monitor. 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 collaterals noted too per Dr. Wong H/O thyroid nodules, followed by PCP. Thank you for allowing us to participate in the mangagement of Ms. Mccoy. This is Christina Hatfield PA-C, as a scribe for Dr. Layne. Patient was seen and evaluated with Christina, I interviewed and examined the patient, she was seen at bedside sitting comfortably, denied any chest pain Still complaining of generalized fatigue and weakness. Reviewed her medication, patient was hospitalized recently at [facility] requiring cardiac catheterization and reported that did not require any stenting Blood pressure is stable, monitor electrolyte I will evaluate twelve-lead EKG I reviewed the consultation and discussed the management plan and made few modification using Italic font CHRISTINA HINOJOSA Dec 23, 2021 14:12 KARLY LAYNE MD Dec 23, 2021 16:09
[2021-12-23] MEDS: AMIODARONE 200 MG (CORDARONE) TAB PO SCH (20:51)
[2021-12-23 20:53] VITALS: BP 135/66
--- NOTE | 2021-12-24 05:39 | PM&R Progress Note ---
Subjective HPI/CC On Admission Date Seen by Provider: Dec 24, 2021 Time Seen by Provider: 12:00 Subjective/Events-last exam 12/24/2021: Patient doing well Patient has chronic back pain No falls Participating in therapy 12/23/2021: Doing well Improved status Ambulating well Will continue strengthening Submitting progress to insurance Review of Systems General: Fatigue, Malaise Objective Exam Vital Signs Vital Signs Date Time Temp Pulse Resp B/P (MAP) Pulse Ox O2 Delivery O2 Flow Rate FiO2 12/24/21 20:17 Room Air 12/24/21 20:00 36.2 59 18 109/54 (72) 95 Capillary Refill : General Appearance: No Apparent Distress, WD/WN, Chronically ill, Obese HEENT: PERRL/EOMI, Normal ENT Inspection, Pharynx Normal Neck: Full Range of Motion, Normal Inspection, Non Tender, Supple, Carotid Bruit Respiratory: Chest Non Tender, Lungs Clear, Normal Breath Sounds, No Accessory Muscle Use, No Respiratory Distress Cardiovascular: Regular Rate, Rhythm, No Edema, No Gallop, No JVD, No Murmur, Normal Peripheral Pulses Gastrointestinal: Normal Bowel Sounds, No Organomegaly, No Pulsatile Mass, Non Tender, Soft Back: Normal Inspection, No CVA Tenderness, No Vertebral Tenderness Extremity: Normal Capillary Refill, Normal Inspection, Normal Range of Motion, Non Tender, No Calf Tenderness, No Pedal Edema Neurologic/Psychiatric: Alert, Oriented x3, densitometer reader II-XII Norm as Tested, Abnormal Gait, Depressed Affect, Motor Weakness (Lower extremities 3/5) Skin: Normal Color, Warm/Dry Lymphatic: No Adenopathy Results/Procedures Lab Patient resulted labs reviewed. FIM Transfers Therapy Code Descriptions/Definitions Functional [place] Measure: 0=Not Assessed/NA 4=Minimal Assistance 1=Total Assistance 5=Supervision or Setup 2=Maximal Assistance 6=Modified [place] 3=Moderate Assistance 7=Complete IndependenceSCALE: Activities may be completed with or without assistive devices. 9-Ontjzkkdli-crqeruz completes the activity by him/herself with no assistance from a helper. 5-Set-up or Clean-up Assistance-helper sets up or cleans up; patient completes activity. [place] assists only prior to or following the activity. 4-Supervision or Touching Assistance-helper provides verbal cues and/or touching/steadying and/or contact guard assistance as patient completes activity. Assistance may be provided throughout the activity or intermittently. 3-Partial/Moderate Assistance-helper does LESS THAN HALF the effort. [place] lifts, holds or supports trunk or limbs, but provides less than half the effort. 2-Substantial/Maximal Assistance-helper does MORE THAN HALF the effort. [place] lifts or holds trunk or limbs and provides more than half the effort. 2-Sttcqzklg-sqyfdy does ALL the effort. Patient does none of the effort to comp lete the activity. Or, the assistance of 2 or more helpers is required for the patient to complete the activity. If activity was not attempted, code reason: 7-Patient Refused. 9-Not Applicable-not attempted and the patient did not perform the activity before the current illness, exacerbation or injury. 10-Not Attempted due to Environmental Limitations-(lack of equipment, weather restraints, etc.). 88-Not Attempted due to Medical Conditions or Safety Concerns. Roll Left to Right (QC): 4 Sit to Lying (QC): 4 Sit to Stand (QC): 3 Chair/Lrs-fm-Wecyy Xfer(QC): 3 Car Transfer (QC): 4 Gait Training Does the Patient Walk?: Yes Distance: 200, 100, 150 Walk 10 feet (QC): 4 Walk 50 ft with 2 Turns(QC): 3 Walk 150 ft (QC): 3 Walking 10ft/uneven surface-QC: 4 Gait Persons Needed: 1 Gait Assistive Device: FWW Wheelchair Training Does the Pt Use a Wheelchair?: No Wheel 50 ft with 2 turns (QC): 9 Wheel 150 ft (QC): 9 Stair Training #of Steps: 8 1 Step (curb) (QC): 4 4 Steps (QC): 3 12 Steps (QC): 88 Balance Picking up an Object (QC): 4 ADL-Treatment Eating (QC): 6 (Pt reports IND with meals, even when she has some numbness or shakiness.) Oral Hygiene (QC): 4 (SBA for standing balance) Shower/Bathe Self (QC): 4 (SBA for standing balance during buttocks/periarea hygiene) Upper Body Dressing (QC): 5 Lower Body Dressing (QC): 4 (SBA for standing balance during pant hike) On/Off Footwear (QC): 5 Toileting Hygiene (QC): 4 (Supervision) Assessment/Plan Assessment and Plan Assess & Plan/Chief Complaint Assessment: 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
[2021-12-24] MEDS: PANTOPRAZOLE 40 MG (PROTONIX) TAB PO SCH (06:03)
[2021-12-24] MEDS: FERROUS SULF 325 MG (IRON) TAB PO SCH (06:04)
[2021-12-24 07:37] VITALS: BP 109/69
--- NOTE | 2021-12-24 07:59 | Occupational Ther Daily Note ---
OT Current Status-Daily Note Subjective Pt seated EOB upon OT arrival, agreeable to tx. Pt reports 0/10 pain in BLE currently, but she is experiencing "12-13/10" pain in her lower back. She said she is ready to go home if ARU staff think she is ready, but she is willing to stay if she needs more therapy to increase IND. Mental Status/Objective Patient Orientation: Person, Place, Situation ADL-Treatment Therapy Code Descriptions/Definitions Functional [place] Measure: 0=Not Assessed/NA 4=Minimal Assistance 1=Total Assistance 5=Supervision or Setup 2=Maximal Assistance 6=Modified [place] 3=Moderate Assistance 7=Complete IndependenceSCALE: Activities may be completed with or without assistive devices. 8-Dkqjkroddv-vhplgxx completes the activity by him/herself with no assistance from a helper. 5-Set-up or Clean-up Assistance-helper sets up or cleans up; patient completes activity. [place] assists only prior to or following the activity. 4-Supervision or Touching Assistance-helper provides verbal cues and/or touching/steadying and/or contact guard assistance as patient completes activity. Assistance may be provided throughout the activity or intermittently. 3-Partial/Moderate Assistance-helper does LESS THAN HALF the effort. [place] lifts, holds or supports trunk or limbs, but provides less than half the effort. 2-Substantial/Maximal Assistance-helper does MORE THAN HALF the effort. [place] lifts or holds trunk or limbs and provides more than half the effort. 1-Waqgqubjm-gaoqxk does ALL the effort. Patient does none of the effort to complete the activity. Or, the assistance of 2 or more helpers is required for the patient to complete the activity. If activity was not attempted, code reason: 7-Patient Refused. 9-Not Applicable-not attempted and the patient did not perform the activity before the current illness, exacerbation or injury. 10-Not Attempted due to Environmental Limitations-(lack of equipment, weather restraints, etc.). 88-Not Attempted due to Medical Conditions or Safety Concerns. Eating (QC): 6 (Per pt report) Oral Hygiene (QC): 6 Shower/Bathe Self (QC): 6 Upper Body Dressing (QC): 6 Lower Body Dressing (QC): 6 On/Off Footwear: 6 (slippers and tennis shoes) Toileting Hygiene (QC): 6 Other Treatment Pt independently stood from bed and used FWW to retrieve clothing items from closet. She walked to the bathroom to complete showering, dressing, and oral care/grooming tasks. Pt took seated RB at recliner prior to walking to therapy gym. She completed 10mins seated at arm bike (with 50 alvarado of resistance) to increase BUE strength and endurance needed for ADLs and functional transfers. Pt c/o of bilateral should pain during activity, but wanted to finish task. She independently walked to [facility] kitchen area to participate in functional activity that simulated IADL tasks. Pt was educated about FWW safety and placement during IADL tasks, pt verbalized understanding but required many verbal and tactile cues to adhere to them during activity. She was able to retrieve 4 ventura bags at a time before requesting a seated RB d/t lower back pain, x3. Pt walked back to room, SBA d/t increased back pain, and returned to recliner. Post tx, pt left in recliner with call light in reach and all needs met. Education OT Patient Education: Correct positioning, Energy conservation, Exercise program, Modified ADL techniques, Progress toward Goal/Update tx plan, Purpose of tx/functional activities, Rehab process, Safety issues, Transfer techniques, Use of adapted equipment Teaching Recipient: Patient Teaching Methods: Discussion Response to Teaching: Verbalize Understanding, Reinforcement Needed OT Short Term Goals Short Term Goals Time Frame: Jan 01, 2022 Shower/bathe self: 5 Upper body dressin Lower body dressin Putting on/taking off footwear: 5 OT Retirement Goals Bus Transportation Manager Goals Time Frame: Jan 15, 2022 Eating (QC): 6 (met) Oral Hygiene (QC): 6 (met) Toileting Hygiene (QC): 6 (met) Shower/Bathe Self (QC): 6 (met) Upper Body Dressing (QC): 6 (met) Lower Body Dressing (QC): 6 (met) On/Off Footwear (QC): 6 (met) Additional Goals: 1-Demonstrate ADL Tasks, 2-Verbalize Understanding, 3-ImproveStrength/Pauline 1=Demonstrate adherence to instructed precautions during ADL tasks. 2=Patient will verbalize/demonstrate understanding of assistive devices/modifications for ADL. 3=Patient will improve strength/tolerance for activity to enable patient to perform ADL's. OT Education/Plan Problem List/Assessment Assessment: Decreased Activ Tolerance, Decreased UE Strength, Impaired Funct Balance, Impaired I ADL's Discharge Recommendations Plan/Recommendations: Continue POC Treatment Plan/Plan of Care Patient would benefit from OT for education, treatment and training to promote independence in ADL's, mobility, safety and/or upper extremity function for ADL's. Plan of Care: ADL Retraining, Functional Mobility, Group Exercise/Act as Ind, UE Funct Exercise/Act Treatment Duration: Jan 15, 2022 Frequency: At least 5 of 7 days/Wk (IRF) Estimated Hrs Per Day: 1.5 hours per day Agreement: Yes Rehab Potential: Good Time/GCodes Start Time: 07:45 Stop Time: 09:00 Total Time Billed (hr/min): 75 Billed Treatment Time 1, ADL 2 (30'), Ex (10'), FA 2 (35') MARSHAL KELLY OT Dec 24, 2021 07:59
--- NOTE | 2021-12-24 08:23 | Cardiology Progress Note ---
Subjective Date Seen by Provider: Dec 24, 2021 Time Seen by Provider: 07:55 Subjective/Events-last exam Patient in bathroom doing ADLs, no new complaints. Denies any chest pain or dyspnea. 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 Receiving PT/OT CAD, Cardiac cath of September 15, [address] Wong showed mild dz to LAD; mild dz to L cx; patent stents to the prox and distal RCA Stress test done 08-01-20 is suggestive of a small to moderate amount of anterior ischemia. Normal regional wall motion. Normal global left ventricular systolic function with a calculated ejection fraction of 71%. Did not warrant LHC. Recent cardiac catheterization was done at [facility] did not require any stenting Dilated ischemic cardiomyopathy and h/o systolic CHF, compensated Echocardiogram of 07-31-20 showed LVEF 55-65%. Grade 1 diastolic dysfunction. LA mildly to mod dilated. AoV thickening consistent with sclerosis. Mild to mod MR. Bi-ventricular ICD (implanted by Dr. Zapata, implanted 08-04-16) Paroxysmal a-fib, maintained on Amiodarone 200mg daily, OAC with Eliquis HTN, controlled, continue to monitor. 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 collaterals noted too per Dr. Wong H/O thyroid nodules, followed by PCP. PHILLIP HINOJOSA Dec 24, 2021 08:22 KARLY CASTRO MD Dec 28, 2021 10:47
[2021-12-24 09:57] VITALS: BP 125/61
[2021-12-24] MEDS: ASPIRIN E.C. 81 MG (ECOTRIN) TAB PO SCH (10:05)
[2021-12-24] MEDS: GABAPENTIN 600 MG (NEURONTIN) TAB PO SCH ×3 (10:06→21:01)
[2021-12-24] MEDS: lisINopril 20 MG (PRINIVIL) TABLET PO SCH (10:06)
[2021-12-24] MEDS: APIXABAN 5 MG (ELIQUIS) TABLET PO SCH ×2 (10:06→21:01)
[2021-12-24] MEDS: FUROSEMIDE 40 MG (LASIX) TAB PO SCH (10:06)
[2021-12-24] MEDS: ISOSORBIDE MONONITRATE 60 MG (IMDUR) TAB PO SCH (10:06)
[2021-12-24] MEDS: FAMOTIDINE 20 MG (PEPCID) TABLET PO SCH (10:06)
--- NOTE | 2021-12-24 10:17 | Progress Note ---
Subjective Subjective Date Seen by Provider: Dec 24, 2021 Time Seen by Provider: 09:45 Patient is being seein in inpatient rehab for chronic immune demyelinating polyneuropathy and generalized weakness. Patient resting comfortably in chair. Feels like she has been making great improvement with her strength. Patient states she does not know when she is supposed to have her next treatment. She knows they said she will need treatment every three to four weeks. She does not want to have any relapsing and asked if we could get some answers for her. Patient is having some urge incontinence that she states "is embarrassing". Patient also reports back pain. She has not taken anything for it yet, but she is using heat currently. Review of Systems General: Fatigue, Malaise HEENT: No Head Aches, No Visual Changes Pulmonary: No Dyspnea, No Cough Cardiovascular: No: Chest Pain, Palpitations Gastrointestinal: No: Nausea, Vomiting, Abdominal Pain, Diarrhea, Constipation Genitourinary: No Dysuria, No Frequency; Other (Urge) Musculoskeletal: back pain Neurological: Weakness All Other Systems Reviewed All Other Systems Reviewed: Yes Objective Exam Vital Signs Vital Signs Date Time Temp Pulse Resp B/P (MAP) Pulse Ox O2 Delivery O2 Flow Rate FiO2 12/24/21 07:37 36.2 65 16 109/69 (82) 93 Room Air 12/23/21 21:00 Room Air 12/23/21 20:53 36.5 60 18 135/66 (89) 94 Room Air General Appearance: No Apparent Distress, WD/WN, Obese Eyes: Bilateral Eye Normal Inspection, Bilateral Eye PERRL HEENT: PERRL/EOMI Neck: Supple Respiratory: Chest Non Tender, Lungs Clear, Normal Breath Sounds, No Accessory Muscle Use, No Respiratory Distress Cardiovascular: Regular Rate, Rhythm, No Edema, No Murmur, Normal Peripheral Pulses Gastrointestinal: Normal Bowel Sounds, Non Tender, Soft Rectal: Deferred Extremity: Non Tender, No Calf Tenderness, No Pedal Edema Neurologic/Psychiatric: Alert, Oriented x3, javascript front end developer II-XII Norm as Tested Skin: Normal Color, Warm/Dry Assessment/Plan Assessment/Plan Admission Dx CIPD Generalized weakness Admission Status: Inpatient Order (span 2 midnights) Reason for Inpatient Admission: CIPD Generalized weakness Assessment and Plan Chronic Immune Demyelinating Polyneuropathy * Patient underwent plasma exchange transfusion at [facility] * Was told she will need plasma exchange transfusion every month * Unsure when her next treatment is or where she is supposed to have it Atrial Fibrillation, Chronic * Cardiology on board Hypertension * Resume home medications as tolerated Hyperlipidemia * Home statin Generalized Weakness * PT and OT Supervisory-Addendum Brief Verification & Attestation Participated in pt care: history, MDM, physical Personally performed: exam, history, MDM, supervision of care Care discussed with: Medical Student Procedures: n/a Results interpretation: Verified all documentation pt seen with medical student, pt up to chair at bedside, she reports that she feels strong enough to go home. she reports that she is planning on going back up to [facility] to see the neurologist, she did not get an appt on discharge, they only gave her the name and number of the provider for her to contact. she is wondering about when she will get her next plasmaphoresis. she reports that her legs are stronger, but still weak overall. plan dc to home soon with potential dc tuesday versus early next week. CARINA DIEGO Dec 24, 2021 10:17 GIO BRADY MD Dec 28, 2021 08:55
--- NOTE | 2021-12-24 10:41 | Speech Therapy Daily Note ---
Speech Daily Progress Note Subjective Date Seen by Provider: Dec 24, 2021 Time Seen by Provider: 10:00 The patient was seated upright in her recliner, awake and alert upon entrance to the patient's room. The patient greeted the clinician appropriately and was agreeable to participation in the cognitive linguistic treatment session. Objective - Orientation: The patient displayed 100% independent orientation to self, location, month, day of the week, date, and year. - Word Finding Exercise: The clinician provided the patient with a specific category and a letter. The patient was asked to provide word which began with the letter provided and fit into the category. The patient displayed good accuracy, completing the task with 80% accuracy and mild clinician cueing. Expression of Ideas/Wants: Expression (4) Understanding Verbal Content: Understands (4) Brief Interview-Mental Status: Yes Repetition of Three Words: Three (3) Temporal Orientation: Year: Correct (3) Temporal Orientation: Month: Accurate within 5 days(2) Temporal Orientation: Day: Correct (1) Recall : Wear to say "Sock": Yes, no cue required (2) Recall : Color: Yes, no cue required (2) Recall : Bed: Yes, no cue required (2) Memory/Recall Ability: Current season, That he or she is in a hsp/hsp unit Assessment Assessment Current Status: Good Progress Treatment Plan Continue Plan of Care Speech Short Term Goals Short Term Goals Short Term Goals The patient will demonstrated 80% accuracy with word-finding exercises with mild clinician verbal cueing. Time Frame-STG: Five Days. Speech Retort Feeder Ground Bone Goals [facility] Goals The patient will demonstrated increased cognitive linguistic skills for safe discharge to the least restrictive environment. Time Frame: Ten Days. Speech-Plan Treatment Plan Speech Therapy Treatment Plan: Continue Plan of Care Treatment Duration: Dec 23, 2021 Frequency: Modified Program (IRF) Estimated Hrs Per Day: Other Rehab Potential: Good Safety Risks/Education Teaching Recipient: Patient Teaching Methods: Demonstration, Discussion Response to Teaching: Verbalize Understanding, Return Demonstration Education Topics Provided: Word Finding Strategies Time Speech Therapy Time In: 10:00 Speech Therapy Time Out: 10:30 Total Billed Time: 30 Billed Treatment Time DELMER Casarez [facility] Dec 24, 2021 10:41
--- NOTE | 2021-12-24 10:45 | Physical Therapy Daily Note ---
PT Daily Note-Current Subjective Pt. agrees to Rx, states her pain is at 10/10. "I have been in pain so long and now Im use to it but it is still intense" " I have to stop very frequently and sit to rest " Pain Numeric Pain Scale: 10-Worst Possible Pain Location: Medial Location Body Site: Back Pain Description: Ache Mental Status Patient Orientation: Normal For Age Transfers SCALE: Activities may be completed with or without assistive devices. 5-Vhjybrsluw-ahwzqxb completes the activity by him/herself with no assistance from a helper. 5-Set-up or Clean-up Assistance-helper sets up or cleans up; patient completes activity. [place] assists only prior to or following the activity. 4-Supervision or Touching Assistance-helper provides verbal cues and/or touching/steadying and/or contact guard assistance as patient completes activity. Assistance may be provided throughout the activity or intermittently. 3-Partial/Moderate Assistance-helper does LESS THAN HALF the effort. [place] lifts, holds or supports trunk or limbs, but provides less than half the effort. 2-Substantial/Maximal Assistance-helper does MORE THAN HALF the effort. [place] lifts or holds trunk or limbs and provides more than half the effort. 3-Yzcjrpunf-auqdhi does ALL the effort. Patient does none of the effort to complete the activity. Or, the assistance of 2 or more helpers is required for the patient to complete the activity. If activity was not attempted, code reason: 7-Patient Refused. 9-Not Applicable-not attempted and the patient did not perform the activity b efore the current illness, exacerbation or injury. 10-Not Attempted due to Environmental Limitations-(lack of equipment, weather restraints, etc.). 88-Not Attempted due to Medical Conditions or Safety Concerns. Roll Left & Right (QC): 6 Sit to Lying (QC): 6 Lying to Sitting/Side of Bed(Q: 6 Sit to Stand (QC): 4 Chair/Gyp-rk-[place] Xfer(QC): 4 Toilet Transfer (QC): 4 Weight Bearing Right Lower Extremity: Right Full Weight Bearing Left Lower Extremity: Left Full Weight Bearing Gait Training Does the Patient Walk?: Yes Walk 10 feet (QC): 4 Walk 50 ft with 2 Turns(QC): 4 Walk 150 ft (QC): 4 Walking 10ft/uneven surface-QC: 4 Gait Persons Needed: 1 Gait Assistive Device: FWW pt. had 2 incidence of knee partially collapsing and she stopped and was able to bring herself back up. Pt. comments on her instability and weakness, it is noted during gait that pts steps are not well controlled Wheelchair Training Does the Pt Use a Wheelchair?: No Stair Training Stair Training: Handrails/: 2 handrails #of Steps: 12 1 Step (curb) (QC): 4 4 Steps (QC): 4 12 Steps (QC): 4 Stairs: Pattern: Step to pt. needed CGA to min with cuing for sequence and was notably fatigued while descending the last 4 steps and needed to rest immediately upon getting to last step Exercises Supine Ex: Ankle pumps, Rolling, Short Arc Quads, Hip abd/add Supine Reps: 10 Assessment Current Status: Good Progress pt. 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 Goals PT [facility] Goals Time Frame: Jan 09, 2022 Roll Left & Right (QC): 6 Sit to Lying (QC): 6 Lying-Sitting on Side/Bed(QC): 6 Sit to Stand (QC): 6 Chair/Ebq-ko-Kpowf Xfer(QC): 6 Toilet Transfer (QC): 6 Car Transfer (QC): 6 Does the Patient Walk: Yes Walk 10 feet (QC): 6 Walk 50ft with 2 Turns (QC): 6 Walk 150 ft (QC): 4 Walking 10ft on Uneven Surface: 6 1 Step (curb) (QC): 6 4 Steps (QC): 4 12 Steps (QC): 4 Picking up an Object (QC): 6 Does the Pt use WC or Scooter?: No Wheel 50 feet with 2 turns (QC: 9 Wheel 150 feet: 9 PT Plan Treatment/Plan Treatment Plan: Continue Plan of Care Treatment Plan: Bed Mobility, Education, Functional Activity Pauline, Functional Strength, Group Therapy, Gait, Safety, Therapeutic Exercise, Transfers Treatment Duration: Jan 13, 2022 Frequency: At least 5 of 7 days/Wk (IRF) Estimated Hrs Per Day: 1.5 hours per day Patient and/or Family Agrees t: Yes Safety Risks/Education Patient Education: Gait Training, Transfer Techniques, Steps, Correct Positioning, Disease Process, Safety Issues Teaching Recipient: Patient Teaching Methods: Demonstration, Discussion Response to Teaching: Verbalize Understanding, Return Demonstration, Reinforcement Needed Time/GCodes Time In: 900 Time Out: 930 Total Billed Treatment Time: 30 Total Billed Treatment 1,FA20m,GT10m ERIN CONN MANAGER PHOTOGRAPHY Dec 24, 2021 10:45
--- NOTE | 2021-12-24 11:59 | Physical Therapy Daily Note ---
PT Daily Note-Current Subjective Pt. agrees to Rx, describes her home situation. Feels her family will help her and at home Pain Numeric Pain Scale: 8 Location: Medial Location Body Site: Back Pain Description: Ache Mental Status Patient Orientation: Normal For Age Transfers SCALE: Activities may be completed with or without assistive devices. 2-Onpvrypass-ofgimle completes the activity by him/herself with no assistance from a helper. 5-Set-up or Clean-up Assistance-helper sets up or cleans up; patient completes activity. [place] assists only prior to or following the activity. 4-Supervision or Touching Assistance-helper provides verbal cues and/or to uching/steadying and/or contact guard assistance as patient completes activity. Assistance may be provided throughout the activity or intermittently. 3-Partial/Moderate Assistance-helper does LESS THAN HALF the effort. [place] lifts, holds or supports trunk or limbs, but provides less than half the effort. 2-Substantial/Maximal Assistance-helper does MORE THAN HALF the effort. [place] lifts or holds trunk or limbs and provides more than half the effort. 0-Czwlptfqy-avieyc does ALL the effort. Patient does none of the effort to complete the activity. Or, the assistance of 2 or more helpers is required for the patient to complete the activity. If activity was not attempted, code reason: 7-Patient Refused. 9-Not Applicable-not attempted and the patient did not perform the activity before the current illness, exacerbation or injury. 10-Not Attempted due to Environmental Limitations-(lack of equipment, weather restraints, etc.). 88-Not Attempted due to Medical Conditions or Safety Concerns. Roll Left & Right (QC): 6 Sit to Lying (QC): 6 Lying to Sitting/Side of Bed(Q: 6 Sit to Stand (QC): 6 Chair/Tlb-rl-Flgpc Xfer(QC): 6 Toilet Transfer (QC): 6 Car Transfer (QC): 6 educated pt about using chairs with arms at home as well as padding the seat to raise the height for easier stance Weight Bearing Right Lower Extremity: Right Full Weight Bearing Left Lower Extremity: Left Full Weight Bearing Gait Training Does the Patient Walk?: Yes Gait Assistive Device: FWW 100ft, 50 ft, 40 ft x 2 CGA to SBA slow, instruction for safe use of device and to have chairs every few feet in her home for frequent rest as needed Balance Picking up an Object (QC): 6 Exercises Seated Therapy Exercises: Ankle pumps, Sit to stand, Long arc quads, Hip flexion, Hip abd/add Seated Reps: 12 Treatments gait, car TRF, retrieving item from floor, seated ex, toileting Assessment Current Status: Good Progress PT Nursing Home Goals Nursing Home Goals PT Rv Body Mechanic Goals Time Frame: Jan 09, 2022 Roll Left & Right (QC): 6 Sit to Lying (QC): 6 Lying-Sitting on Side/Bed(QC): 6 Sit to Stand (QC): 6 Chair/Sso-uj-Rgiyf Xfer(QC): 6 Toilet Transfer (QC): 6 Car Transfer (QC): 6 Does the Patient Walk: Yes Walk 10 feet (QC): 6 Walk 50ft with 2 Turns (QC): 6 Walk 150 ft (QC): 4 Walking 10ft on Uneven Surface: 6 1 Step (curb) (QC): 6 4 Steps (QC): 4 12 Steps (QC): 4 Picking up an Object (QC): 6 Does the Pt use WC or Scooter?: No Wheel 50 feet with 2 turns (QC: 9 Wheel 150 feet: 9 PT Plan Treatment/Plan Treatment Plan: Continue Plan of Care Treatment Plan: Bed Mobility, Education, Functional Activity Pauline, Functional Strength, Group Therapy, Gait, Safety, Therapeutic Exercise, Transfers Treatment Duration: Jan 13, 2022 Frequency: At least 5 of 7 days/Wk (IRF) Estimated Hrs Per Day: 1.5 hours per day Patient and/or Family Agrees t: Yes Safety Risks/Education Patient Education: Gait Training, Transfer Techniques, Correct Positioning, Disease Process, Safety Issues Teaching Recipient: Patient Teaching Methods: Demonstration, Discussion Response to Teaching: Verbalize Understanding, Return Demonstration, Reinforcement Needed Time/GCodes Time In: 1100 Time Out: 1200 Total Billed Treatment Time: 60 Total Billed Treatment 1,FA35m,EX10m,GT15m ERIN CONN SALT MACHINE OPERATOR Dec 24, 2021 11:59
[2021-12-24] MEDS: polyethylene glycoL POWDER 17 GM (MIRALAX) PACK PO SCH ×2 (12:58→19:40)
[2021-12-24] MEDS: DOCUSATE SODIUM 100 MG (COLACE) CAP PO SCH ×2 (12:58→21:01)
[2021-12-24] MEDS: SENNA W/DOCUSATE (SENOKOT S) TABLET PO SCH ×2 (12:58→21:01)
[2021-12-24 20:00] VITALS: BP 109/54
[2021-12-24] MEDS: AMIODARONE 200 MG (CORDARONE) TAB PO SCH (21:01)
[2021-12-25] MEDS: PANTOPRAZOLE 40 MG (PROTONIX) TAB PO SCH (06:03)
[2021-12-25] MEDS: FERROUS SULF 325 MG (IRON) TAB PO SCH (06:03)
[2021-12-25 07:11] VITALS: BP 111/54
--- NOTE | 2021-12-25 08:23 | PM&R Progress Note ---
Subjective HPI/CC On Admission Date Seen by Provider: Dec 25, 2021 Time Seen by Provider: 12:30 Subjective/Events-last exam 12/25/2021: Pt is doing a lot better Bowels are moving Working on things until tuesday Checked meds and labs 12/24/2021: Patient doing well Patient has chronic back pain No falls Participating in therapy 12/23/2021: Doing well Improved status Ambulating well Will continue strengthening Submitting progress to insurance Review of Systems General: Fatigue, Malaise Objective Exam Vital Signs Vital Signs Date Time Temp Pulse Resp B/P (MAP) Pulse Ox O2 Delivery O2 Flow Rate FiO2 12/25/21 20:08 36.5 65 20 131/62 (85) 98 Room Air Capillary Refill : General Appearance: No Apparent Distress, WD/WN, Chronically ill, Obese HEENT: PERRL/EOMI, Normal ENT Inspection, Pharynx Normal Neck: Full Range of Motion, Normal Inspection, Non Tender, Supple, Carotid Bruit Respiratory: Chest Non Tender, Lungs Clear, Normal Breath Sounds, No Accessory Muscle Use, No Respiratory Distress Cardiovascular: Regular Rate, Rhythm, No Edema, No Gallop, No JVD, No Murmur, Normal Peripheral Pulses Gastrointestinal: Normal Bowel Sounds, No Organomegaly, No Pulsatile Mass, Non Tender, Soft Rectal: Deferred Back: Normal Inspection, No CVA Tenderness, No Vertebral Tenderness Extremity: Normal Capillary Refill, Normal Inspection, Normal Range of Motion, Non Tender, No Calf Tenderness, No Pedal Edema Neurologic/Psychiatric: Alert, Oriented x3, flavor tank tender II-XII Norm as Tested, Abnormal Gait, Depressed Affect, Motor Weakness (Lower extremities 3/5) Skin: Normal Color, Warm/Dry Lymphatic: No Adenopathy Results/Procedures Lab Patient resulted labs reviewed. [facility] Transfers Therapy Code Descriptions/Definitions Functional [place] Measure: 0=Not Assessed/NA 4=Minimal Assistance 1=Total Assistance 5=Supervision or Setup 2=Maximal Assistance 6=Modified [place] 3=Moderate Assistance 7=Complete IndependenceSCALE: Activities may be completed with or without assistive devices. 5-Tmdhscbnhg-ftcqcey completes the activity by him/herself with no assistance from a helper. 5-Set-up or Clean-up Assistance-helper sets up or cleans up; patient completes activity. [place] assists only prior to or following the activity. 4-Supervision or Touching Assistance-helper provides verbal cues and/or touching/steadying and/or contact guard assistance as patient completes activity. Assistance may be provided throughout the activity or intermittently. 3-Partial/Moderate Assistance-helper does LESS THAN HALF the effort. [place] lifts, holds or supports trunk or limbs, but provides less than half the effort. 2-Substantial/Maximal Assistance-helper does MORE THAN HALF the effort. [place] lifts or holds trunk or limbs and provides more than half the effort. 4-Oilmgvijj-gzxnzt does ALL the effort. Patient does none of the effort to complete the activity. Or, the assistance of 2 or more helpers is required for the patient to complete the activity. If activity was not attempted, code reason: 7-Patient Refused. 9-Not Applicable-not attempted and the patient did not perform the activity be fore the current illness, exacerbation or injury. 10-Not Attempted due to Environmental Limitations-(lack of equipment, weather restraints, etc.). 88-Not Attempted due to Medical Conditions or Safety Concerns. Roll Left to Right (QC): 6 Sit to Lying (QC): 6 Sit to Stand (QC): 6 Chair/Sac-kw-Nbbfq Xfer(QC): 6 Car Transfer (QC): 6 Gait Training Does the Patient Walk?: Yes Distance: 200, 100, 150 Walk 10 feet (QC): 4 Walk 50 ft with 2 Turns(QC): 4 Walk 150 ft (QC): 4 Walking 10ft/uneven surface-QC: 4 Gait Persons Needed: 1 Gait Assistive Device: FWW Wheelchair Training Does the Pt Use a Wheelchair?: No Wheel 50 ft with 2 turns (QC): 9 Wheel 150 ft (QC): 9 Stair Training Stair Training: Handrails/: 2 handrails #of Steps: 12 1 Step (curb) (QC): 4 4 Steps (QC): 4 12 Steps (QC): 4 Stairs: Pattern: Step to Balance Picking up an Object (QC): 6 ADL-Treatment Eating (QC): 6 (Per pt report) Oral Hygiene (QC): 6 Shower/Bathe Self (QC): 6 Upper Body Dressing (QC): 6 Lower Body Dressing (QC): 6 On/Off Footwear (QC): 6 (slippers and tennis shoes) Toileting Hygiene (QC): 6 Assessment/Plan Assessment and Plan Assess & Plan/Chief Complaint Assessment: 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 Recent MRI maintained on aspirin Chronic atrial fibrillation on Xarelto Hypertension Obesity Diabetes Plan: Inpatient rehab protocol PT and OT Supportive care 12/23/2021: Monitor progress Aggressive therapy 12/24/2021: Supportive care Gabapentin 12/25/2021: Monitor closely (1) Immune mediated polyneuropathy (2) Recent myocardial infarction (3) Atrial fibrillation Status: Chronic (4) Non-insulin dependent type 2 diabetes mellitus Status: Chronic (5) Essential (primary) hypertension Status: Chronic ESTEVAN FREEMAN DO Dec 25, 2021 08:23
[2021-12-25] MEDS: polyethylene glycoL POWDER 17 GM (MIRALAX) PACK PO SCH ×2 (08:32→19:52)
[2021-12-25] MEDS: APIXABAN 5 MG (ELIQUIS) TABLET PO SCH ×2 (08:32→20:02)
[2021-12-25] MEDS: lisINopril 20 MG (PRINIVIL) TABLET PO SCH (08:32)
[2021-12-25] MEDS: FUROSEMIDE 40 MG (LASIX) TAB PO SCH (08:32)
[2021-12-25] MEDS: GABAPENTIN 600 MG (NEURONTIN) TAB PO SCH ×3 (08:32→20:02)
[2021-12-25] MEDS: SENNA W/DOCUSATE (SENOKOT S) TABLET PO SCH ×2 (08:32→20:08)
[2021-12-25] MEDS: FAMOTIDINE 20 MG (PEPCID) TABLET PO SCH (08:32)
[2021-12-25] MEDS: ASPIRIN E.C. 81 MG (ECOTRIN) TAB PO SCH (08:32)
[2021-12-25] MEDS: DOCUSATE SODIUM 100 MG (COLACE) CAP PO SCH ×2 (08:32→20:08)
[2021-12-25] MEDS: ISOSORBIDE MONONITRATE 60 MG (IMDUR) TAB PO SCH (08:32)
[2021-12-25] MEDS ORDERED: GBPN600T PO (11:25)
[2021-12-25] MEDS ORDERED: AMIO200T65 PO (11:25)
[2021-12-25] MEDS ORDERED: APIX5TAB PO (11:25)
[2021-12-25] MEDS ORDERED: ACHD5005 PO (11:25)
[2021-12-25] MEDS ORDERED: FURO40TA4 PO (11:25)
[2021-12-25] MEDS ORDERED: PANT40TA52 PO (11:25)
[2021-12-25] MEDS ORDERED: FAMO20TA5 PO (11:25)
[2021-12-25] MEDS ORDERED: ASPI-1238 PO (11:25)
--- NOTE | 2021-12-25 11:31 | Physical Therapy Daily Note ---
PT Daily Note-Current Subjective Patient in recliner pre tx, agrees to PT, has no complaints of pain. Appearance Patient in recliner post tx with nurse call, phone, tray, all needs met. Mental Status Patient Orientation: Person, Place, Situation Transfers SCALE: Activities may be completed with or without assistive devices. 1-Rcikipeasp-dzngelf completes the activity by him/herself with no assistance from a helper. 5-Set-up or Clean-up Assistance-helper sets up or cleans up; patient completes activity. [place] assists only prior to or following the activity. 4-Supervision or Touching Assistance-helper provides verbal cues and/or dianne mj/steadying and/or contact guard assistance as patient completes activity. Assistance may be provided throughout the activity or intermittently. 3-Partial/Moderate Assistance-helper does LESS THAN HALF the effort. [place] lifts, holds or supports trunk or limbs, but provides less than half the effort. 2-Substantial/Maximal Assistance-helper does MORE THAN HALF the effort. [place] lifts or holds trunk or limbs and provides more than half the effort. 0-Liackvriy-chvwsi does ALL the effort. Patient does none of the effort to complete the activity. Or, the assistance of 2 or more helpers is required for the patient to complete the activity. If activity was not attempted, code reason: 7-Patient Refused. 9-Not Applicable-not attempted and the patient did not perform the activity before the current illness, exacerbation or injury. 10-Not Attempted due to Environmental Limitations-(lack of equipment, weather restraints, etc.). 88-Not Attempted due to Medical Conditions or Safety Concerns. Sit to Stand (QC): 6 Chair/Gem-le-Eviws Xfer(QC): 6 Weight Bearing Right Lower Extremity: Right Full Weight Bearing Left Lower Extremity: Left Full Weight Bearing Gait Training Distance: 150'x2, 200' Walk 10 feet (QC): 6 Walk 50 ft with 2 Turns(QC): 6 Walk 150 ft (QC): 6 Gait Assistive Device: FWW slow but steady ambulation, occasional standing rest break due to fatigue Exercises NuStep Minutes: 15 NuStep Workload: 5 Treatments transfers, ambulation, functional strengthening Assessment Current Status: Fair Progress improving endurance PT [place] Goals Jail Goals PT Jail Goals Time Frame: Jan 09, 2022 Roll Left & Right (QC): 6 Sit to Lying (QC): 6 Lying-Sitting on Side/Bed(QC): 6 Sit to Stand (QC): 6 Chair/Wuf-bl-Fzcjz Xfer(QC): 6 Toilet Transfer (QC): 6 Car Transfer (QC): 6 Does the Patient Walk: Yes Walk 10 feet (QC): 6 Walk 50ft with 2 Turns (QC): 6 Walk 150 ft (QC): 4 Walking 10ft on Uneven Surface: 6 1 Step (curb) (QC): 6 4 Steps (QC): 4 12 Steps (QC): 4 Picking up an Object (QC): 6 Does the Pt use WC or Scooter?: No Wheel 50 feet with 2 turns (QC: 9 Wheel 150 feet: 9 PT Plan Problem List Problem List: Activity Tolerance, Functional Strength, Safety, Balance, Gait, Transfer, Bed Mobility, ROM Treatment/Plan Treatment Plan: Continue Plan of Care Treatment Plan: Bed Mobility, Education, Functional Activity Pauline, Functional Strength, Group Therapy, Gait, Safety, Therapeutic Exercise, Transfers Treatment Duration: Jan 13, 2022 Frequency: At least 5 of 7 days/Wk (IRF) Estimated Hrs Per Day: 1.5 hours per day Patient and/or Family Agrees t: Yes Safety Risks/Education Patient Education: Gait Training, Transfer Techniques, Correct Positioning, Safety Issues Teaching Recipient: Patient Teaching Methods: Demonstration, Discussion Response to Teaching: Reinforcement Needed Time/GCodes Time In: 1045 Time Out: 1130 Total Billed Treatment Time: 45 Total Billed Treatment 1 visit EX 15' FA 30' FABIAN YOUNGER PT Dec 25, 2021 11:31
--- NOTE | 2021-12-25 12:00 | Speech Therapy Daily Note ---
Speech Daily Progress Note Subjective Date Seen by Provider: Dec 25, 2021 Time Seen by Provider: 11:30 The patient was seated upright in her recliner, awake and alert upon entrance to her room by the clinician. The patient greeted the clinician appropriately and was agreeable to participation in the cognitive linguistic treatment session. Objective - Orientation: The patient remains independently oriented to self, location, month, day of the week, date, and year. - Word Finding Exercises: The patient participated in word-finding exercises on this date, completing each exercise with 100% accuracy and mild clinician verbal cueing. Assessment Assessment Current Status: Good Progress Treatment Plan Continue Plan of Care Speech Short Term Goals Short Term Goals Short Term Goals The patient will demonstrated 80% accuracy with word-finding exercises with mild clinician verbal cueing. Time Frame-STG: Five Days. Speech Retirement Goals Operations Professional Goals The patient will demonstrated increased cognitive linguistic skills for safe discharge to the least restrictive environment. Time Frame: Ten Days. Speech-Plan Treatment Plan Speech Therapy Treatment Plan: Continue Plan of Care Treatment Duration: Dec 23, 2021 Frequency: Modified Program (IRF) Estimated Hrs Per Day: Other Rehab Potential: Good Safety Risks/Education Teaching Recipient: Patient Teaching Methods: Discussion Response to Teaching: Verbalize Understanding Education Topics Provided: Word Finding Strategies Time Speech Therapy Time In: 11:30 Speech Therapy Time Out: 12:00 Total Billed Time: 30 Billed Treatment Time HermelindoDELMER ELIZABETH ST Dec 25, 2021 12:00
--- NOTE | 2021-12-25 13:59 | Physical Therapy Daily Note ---
PT Daily Note-Current Subjective Patient in recliner pre tx, agrees to PT, has no complaints of pain. Will be co-treating with OT to work on balance training, coordinate UE and LE during activity, safety and reduce risk of falls. Appearance Patient in therapy gym post tx, will continue with OT Mental Status Patient Orientation: Person, Place, Situation Transfers SCALE: Activities may be completed with or without assistive devices. 5-Egdgckeknf-owafqet completes the activity by him/herself with no assistance from a helper. 5-Set-up or Clean-up Assistance-helper sets up or cleans up; patient completes activity. [place] assists only prior to or following the activity. 4-Supervision or Touching Assistance-helper provides verbal cues and/or touching/steadying and/or contact guard assistance as patient completes activity. Assistance may be provided throughout the activity or intermittently. 3-Partial/Moderate Assistance-helper does LESS THAN HALF the effort. [place] lifts, holds or supports trunk or limbs, but provides less than half the effort. 2-Substantial/Maximal Assistance-helper does MORE THAN HALF the effort. [place] lifts or holds trunk or limbs and provides more than half the effort. 6-Xxjenylqs-bgybix does ALL the effort. Patient does none of the effort to complete the activity. Or, the assistance of 2 or more helpers is required for the patient to complete the activity. If activity was not attempted, code reason: 7-Patient Refused. 9-Not Applicable-not attempted and the patient did not perform the activity before the current illness, exacerbation or injury. 10-Not Attempted due to Environmental Limitations-(lack of equipment, weather restraints, etc.). 88-Not Attempted due to Medical Conditions or Safety Concerns. Sit to Stand (QC): 4 Chair/Ays-ig-Lklzv Xfer(QC): 4 Patient seems a little weaker this afternoon Weight Bearing Right Lower Extremity: Right Full Weight Bearing Left Lower Extremity: Left Full Weight Bearing Gait Training Distance: 120' Walk 10 feet (QC): 4 Walk 50 ft with 2 Turns(QC): 4 Gait Persons Needed: 1 Gait Assistive Device: FWW Patient had one instance of right side knee buckling but she was able to catch herself, no assist needed from therapist Exercises Patient performed standing balance activity x3, involved reaching and turning while standing unsupported Neuromuscular Patient scored 19/28 on the [place] Assessment Tool, do no recommend patient be independent in her room at this time Treatments PT performed transfers, ambulation, balance training, OT performed balance training, UE positioning and safety during activity Assessment Current Status: Fair Progress Patient more fatigued this afternoon, had some minor low back pain PT Senior Living Goals Food Preparation Supervisor Goals PT Senior Living Goals Time Frame: Jan 09, 2022 Roll Left & Right (QC): 6 Sit to Lying (QC): 6 Lying-Sitting on Side/Bed(QC): 6 Sit to Stand (QC): 6 Chair/Ooh-bo-Ftejk Xfer(QC): 6 Toilet Transfer (QC): 6 Car Transfer (QC): 6 Does the Patient Walk: Yes Walk 10 feet (QC): 6 Walk 50ft with 2 Turns (QC): 6 Walk 150 ft (QC): 4 Walking 10ft on Uneven Surface: 6 1 Step (curb) (QC): 6 4 Steps (QC): 4 12 Steps (QC): 4 Picking up an Object (QC): 6 Does the Pt use WC or Scooter?: No Wheel 50 feet with 2 turns (QC: 9 Wheel 150 feet: 9 PT Plan Problem List Problem List: Activity Tolerance, Functional Strength, Safety, Balance, Gait, Transfer, Bed Mobility, ROM Treatment/Plan Treatment Plan: Continue Plan of Care Treatment Plan: Bed Mobility, Education, Functional Activity Pauline, Functional Strength, Group Therapy, Gait, Safety, Therapeutic Exercise, Transfers Treatment Duration: Jan 13, 2022 Frequency: At least 5 of 7 days/Wk (IRF) Estimated Hrs Per Day: 1.5 hours per day Patient and/or Family Agrees t: Yes Safety Risks/Education Patient Education: Gait Training, Transfer Techniques, Correct Positioning, Sa fety Issues Teaching Recipient: Patient Teaching Methods: Demonstration, Discussion Response to Teaching: Reinforcement Needed Time/GCodes Time In: 1330 Time Out: 1400 Total Billed Treatment Time: 30 Total Billed Treatment 1 visit NM 30' FABIAN YOUNGER PT Dec 25, 2021 13:59
--- NOTE | 2021-12-25 14:44 | Occupational Ther Daily Note ---
OT Current Status-Daily Note Subjective Pt agreeable to cotreatment with PT. Mental Status/Objective Patient Orientation: Person, Place, Situation ADL-Treatment Therapy Code Descriptions/Definitions Functional [place] Measure: 0=Not Assessed/NA 4=Minimal Assistance 1=Total Assistance 5=Supervision or Setup 2=Maximal Assistance 6=Modified [place] 3=Moderate Assistance 7=Complete IndependenceSCALE: Activities may be completed with or without assistive devices. 4-Kvszyzskzc-gaiwcet completes the activity by him/herself with no assistance from a helper. 5-Set-up or Clean-up Assistance-helper sets up or cleans up; patient completes activity. [place] assists only prior to or following the activity. 4-Supervision or Touching Assistance-helper provides verbal cues and/or touching/steadying and/or contact guard assistance as patient completes activity. Assistance may be provided throughout the activity or intermittently. 3-Partial/Moderate Assistance-helper does LESS THAN HALF the effort. [place] lifts, holds or supports trunk or limbs, but provides less than half the effort. 2-Substantial/Maximal Assistance-helper does MORE THAN HALF the effort. [place] lifts or holds trunk or limbs and provides more than half the effort. 8-Heauxvxzb-vsjvko does ALL the effort. Patient does none of the effort to complete the activity. Or, the assistance of 2 or more helpers is required for the patient to complete the activity. If activity was not attempted, code reason: 7-Patient Refused. 9-Not Applicable-not attempted and the patient did not perform the activity before the current illness, exacerbation or injury. 10-Not Attempted due to Environmental Limitations-(lack of equipment, weather restraints, etc.). 88-Not Attempted due to Medical Conditions or Safety Concerns. Other Treatment OT/PT cotreat due to skill of 2 clinicians required which a rehabilitation counselor could not perform in order to coordinate UE/LEs, decrease fall risk, focus on higher level balance tasks and due to pt's limitations in strength, activity tolerance, mobility/transfers. OT focused on UE placement and cues for sequencing and safety, PT focused on LE placement, gross overall movement, dynamic standing balance, transfers/mobility. Pt participated in multiple standing functional activities to increase standing activity tolerance and functional balance, including balance testing (see PT note for score). She required CGA-SBA for balance during functional activities. She stood at the counter, reached cross midline to retrieve graded clothespin, and then placed it on the board, x2 with seated RB in between. Pt completed standing and tossing ventura bag activity, no LOB. Pt can only tolerate ~1-2min of static standing d/t lower back and L knee pain. End of cotreat. Pt participated in simulated IADL task and completed laundry. She was educated on FWW safety and placement, pt verbalized understanding but required v/c's to adhere to them during task. Pt was able to walk with FWW to and from laundry room, SBA-CGA, followed with w/c. Pt returned to therapy gym to participate in functional activities on the Wii. She played three games of bowling, alternating between sit and stand (longest stand time ~2min). This activity challenged her standing activity tolerance and functional balance, along with hand eye coordination. Pt c/o increasing lower back pain with longer periods of standing or walking. She walked back to her room with FWW, SBA with w/c following. Post tx, pt left in recliner with call light in reach and all needs met. Education OT Patient Education: Correct positioning, Energy conservation, Exercise program, Modified ADL techniques, Progress toward Goal/Update tx plan, Purpose of tx/functional activities, Rehab process, Safety issues Teaching Recipient: Patient Teaching Methods: Discussion Response to Teaching: Verbalize Understanding OT Short Term Goals Short Term Goals Time Frame: Jan 01, 2022 Shower/bathe self: 5 Upper body dressin Lower body dressin Putting on/taking off footwear: 5 OT Long-Term Goals Long-Term Goals Time Frame: Jan 15, 2022 Eating (QC): 6 (met) Oral Hygiene (QC): 6 (met) Toileting Hygiene (QC): 6 (met) Shower/Bathe Self (QC): 6 (met) Upper Body Dressing (QC): 6 (met) Lower Body Dressing (QC): 6 (met) On/Off Footwear (QC): 6 (met) Additional Goals: 1-Demonstrate ADL Tasks, 2-Verbalize Understanding, 3- ImproveStrength/Pauline 1=Demonstrate adherence to instructed precautions during ADL tasks. 2=Patient will verbalize/demonstrate understanding of assistive devices/modifications for ADL. 3=Patient will improve strength/tolerance for activity to enable patient to perform ADL's. OT Education/Plan Problem List/Assessment Assessment: Decreased Activ Tolerance, Decreased UE Strength, Impaired Funct Balance, Impaired I ADL's, Impaired Self-Care Skills Discharge Recommendations Plan/Recommendations: Continue POC Treatment Plan/Plan of Care Patient would benefit from OT for education, treatment and training to promote independence in ADL's, mobility, safety and/or upper extremity function for ADL's. Plan of Care: ADL Retraining, Functional Mobility, Group Exercise/Act as Ind, UE Funct Exercise/Act Treatment Duration: Jan 15, 2022 Frequency: At least 5 of 7 days/Wk (IRF) Estimated Hrs Per Day: 1.5 hours per day Agreement: Yes Rehab Potential: Good Time/GCodes Start Time: 13:30 Stop Time: 14:45 Total Time Billed (hr/min): 75 Billed Treatment Time 3860-9315: OT/PT cotreat 2882-4164: OT tx 1, FA 5 (75') MARSHAL KELLY OT Dec 25, 2021 14:44
[2021-12-25] MEDS: AMIODARONE 200 MG (CORDARONE) TAB PO SCH (20:02)
[2021-12-25 20:08] VITALS: BP 131/62
[2021-12-26] MEDS: PANTOPRAZOLE 40 MG (PROTONIX) TAB PO SCH (06:41)
[2021-12-26] MEDS: FERROUS SULF 325 MG (IRON) TAB PO SCH (06:41)
[2021-12-26 07:04] VITALS: BP 137/65
[2021-12-26] MEDS: lisINopril 20 MG (PRINIVIL) TABLET PO SCH (08:11)
[2021-12-26] MEDS: FAMOTIDINE 20 MG (PEPCID) TABLET PO SCH (08:11)
[2021-12-26] MEDS: APIXABAN 5 MG (ELIQUIS) TABLET PO SCH ×2 (08:11→20:50)
[2021-12-26] MEDS: ASPIRIN E.C. 81 MG (ECOTRIN) TAB PO SCH (08:11)
[2021-12-26] MEDS: ISOSORBIDE MONONITRATE 60 MG (IMDUR) TAB PO SCH (08:11)
[2021-12-26] MEDS: GABAPENTIN 600 MG (NEURONTIN) TAB PO SCH ×3 (08:11→20:50)
[2021-12-26] MEDS: DOCUSATE SODIUM 100 MG (COLACE) CAP PO SCH ×2 (08:12→19:47)
[2021-12-26] MEDS: SENNA W/DOCUSATE (SENOKOT S) TABLET PO SCH ×2 (08:12→19:47)
[2021-12-26] MEDS: FUROSEMIDE 40 MG (LASIX) TAB PO SCH (08:14)
[2021-12-26] MEDS: polyethylene glycoL POWDER 17 GM (MIRALAX) PACK PO SCH ×2 (08:15→19:47)
--- NOTE | 2021-12-26 09:14 | PM&R Progress Note ---
Subjective HPI/CC On Admission Date Seen by Provider: Dec 26, 2021 Time Seen by Provider: 11:00 Subjective/Events-last exam 12/26/2021: Doing well Leg pain at night is an issue so increasing Gabapentin to 900mg at night leaving 600 BID during the day BM+ 12/25/2021: Pt is doing a lot better Bowels are moving Working on things until tuesday Checked meds and labs 12/24/2021: Patient doing well Patient has chronic back pain No falls Participating in therapy 12/23/2021: Doing well Improved status Ambulating well Will continue strengthening Submitting progress to insurance Review of Systems General: Fatigue, Malaise Objective Exam Vital Signs Vital Signs Date Time Temp Pulse Resp B/P (MAP) Pulse Ox O2 Delivery O2 Flow Rate FiO2 12/26/21 08:59 Room Air 12/26/21 07:04 36.1 64 20 137/65 (89) 98 Capillary Refill : General Appearance: No Apparent Distress, WD/WN, Chronically ill, Obese HEENT: PERRL/EOMI, Normal ENT Inspection, Pharynx Normal Neck: Full Range of Motion, Normal Inspection, Non Tender, Supple, Carotid Bruit Respiratory: Chest Non Tender, Lungs Clear, Normal Breath Sounds, No Accessory Muscle Use, No Respiratory Distress Cardiovascular: Regular Rate, Rhythm, No Edema, No Gallop, No JVD, No Murmur, Normal Peripheral Pulses Gastrointestinal: Normal Bowel Sounds, No Organomegaly, No Pulsatile Mass, Non Tender, Soft Rectal: Deferred Back: Normal Inspection, No CVA Tenderness, No Vertebral Tenderness Extremity: Normal Capillary Refill, Normal Inspection, Normal Range of Motion, Non Tender, No Calf Tenderness, No Pedal Edema Neurologic/Psychiatric: Alert, Oriented x3, power press tender II-XII Norm as Tested, Abnormal Gait, Depressed Affect, Motor Weakness (Lower extremities 3/5) Skin: Normal Color, Warm/Dry Lymphatic: No Adenopathy Results/Procedures Lab Patient resulted labs reviewed. FIM Transfers Therapy Code Descriptions/Definitions Functional [place] Measure: 0=Not Assessed/NA 4=Minimal Assistance 1=Total Assistance 5=Supervision or Setup 2=Maximal Assistance 6=Modified [place] 3=Moderate Assistance 7=Complete IndependenceSCALE: Activities may be completed with or without assistive devices. 5-Rhvtovlsvu-ttiufam completes the activity by him/herself with no assistance from a helper. 5-Set-up or Clean-up Assistance-helper sets up or cleans up; patient completes activity. [place] assists only prior to or following the activity. 4-Supervision or Touching Assistance-helper provides verbal cues and/or touching /steadying and/or contact guard assistance as patient completes activity. Assistance may be provided throughout the activity or intermittently. 3-Partial/Moderate Assistance-helper does LESS THAN HALF the effort. [place] lifts, holds or supports trunk or limbs, but provides less than half the effort. 2-Substantial/Maximal Assistance-helper does MORE THAN HALF the effort. [place] lifts or holds trunk or limbs and provides more than half the effort. 2-Ksrqjtzwk-jrcjrr does ALL the effort. Patient does none of the effort to complete the activity. Or, the assistance of 2 or more helpers is required for the patient to complete the activity. If activity was not attempted, code reason: 7-Patient Refused. 9-Not Applicable-not attempted and the patient did not perform the activity before the current illness, exacerbation or injury. 10-Not Attempted due to Environmental Limitations-(lack of equipment, weather restraints, etc.). 88-Not Attempted due to Medical Conditions or Safety Concerns. Roll Left to Right (QC): 6 Sit to Lying (QC): 6 Sit to Stand (QC): 4 Chair/Ule-vw-Xtush Xfer(QC): 4 Car Transfer (QC): 6 Gait Training Does the Patient Walk?: Yes Distance: 120' Walk 10 feet (QC): 4 Walk 50 ft with 2 Turns(QC): 4 Walk 150 ft (QC): 6 Walking 10ft/uneven surface-QC: 4 Gait Persons Needed: 1 Gait Assistive Device: FWW Wheelchair Training Does the Pt Use a Wheelchair?: No Wheel 50 ft with 2 turns (QC): 9 Wheel 150 ft (QC): 9 Stair Training Stair Training: Handrails/: 2 handrails #of Steps: 12 1 Step (curb) (QC): 4 4 Steps (QC): 4 12 Steps (QC): 4 Stairs: Pattern: Step to Balance Picking up an Object (QC): 6 ADL-Treatment Eating (QC): 6 (Per pt report) Oral Hygiene (QC): 6 Shower/Bathe Self (QC): 6 Upper Body Dressing (QC): 6 Lower Body Dressing (QC): 6 On/Off Footwear (QC): 6 (slippers and tennis shoes) Toileting Hygiene (QC): 6 Assessment/Plan Assessment and Plan Assess & Plan/Chief Complaint Assessment: 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 Recent MRI maintained on aspirin Chronic atrial fibrillation on Xarelto Hypertension Obesity Diabetes Plan: Inpatient rehab protocol PT and OT Supportive care 12/23/2021: Monitor progress Aggressive therapy 12/24/2021: Supportive care Gabapentin 12/25/2021: Monitor closely 12/26/2021: Monitor pain Gabapentin at night 900mg (1) Immune mediated polyneuropathy (2) Recent myocardial infarction (3) Atrial fibrillation Status: Chronic (4) Non-insulin dependent type 2 diabetes mellitus Status: Chronic (5) Essential (primary) hypertension Status: Chronic ESTEVAN FREEMAN DO Dec 26, 2021 09:14
--- NOTE | 2021-12-26 10:19 | Physical Therapy Daily Note ---
PT Daily Note-Current Subjective Upon arrival, pt was supine in bed. Pt states that she has a pain on her R lateral leg. Pt declines pain in calf, and states RN knows about it. Pt agrees to PT. Mental Status Patient Orientation: Person, Place, Time, Situation Transfers SCALE: Activities may be completed with or without assistive devices. 0-Qpoxquypow-gosyuap completes the activity by him/herself with no assistance from a helper. 5-Set-up or Clean-up Assistance-helper sets up or cleans up; patient completes activity. [place] assists only prior to or following the activity. 4-Supervision or Touching Assistance-helper provides verbal cues and/or touching/steadying and/or contact guard assistance as patient completes activity. Assistance may be provided throughout the activity or intermittently. 3-Partial/Moderate Assistance-helper does LESS THAN HALF the effort. [place] lifts, holds or supports trunk or limbs, but provides less than half the effort. 2-Substantial/Maximal Assistance-helper does MORE THAN HALF the effort. [place] lifts or holds trunk or limbs and provides more than half the effort. 8-Vbvzitnun-zminba does ALL the effort. Patient does none of the effort to complete the activity. Or, the assistance of 2 or more helpers is required for the patient to complete the activity. If activity was not attempted, code reason: 7-Patient Refused. 9-Not Applicable-not attempted and the patient did not perform the activity before the current illness, exacerbation or injury. 10-Not Attempted due to Environmental Limitations-(lack of equipment, weather restraints, etc.). 88-Not Attempted due to Medical Conditions or Safety Concerns. Sit to Stand (QC): 6 Pt was able to scoot to one side and transfer from supine to sit, and sit to stand to FWW. Weight Bearing Right Lower Extremity: Right Full Weight Bearing Left Lower Extremity: Left Full Weight Bearing Gait Training Does the Patient Walk?: Yes Distance: 200' Walk 10 feet (QC): 4 Walk 50 ft with 2 Turns(QC): 4 Walk 150 ft (QC): 4 Gait Persons Needed: 1 Gait Assistive Device: FWW Pt ambulated from room to [place] with windows, took a seated rest break, walked back to [facility], took another seated rest break. Ambulated around [facility] and back to room. Where pt transferred from standing to sitting in recliner. Wheelchair Training Does the Pt Use a Wheelchair?: No Exercises Seated Therapy Exercises: Ankle pumps, Long arc quads, Hip flexion, Hamstring Curls Seated Reps: 10 Neuromuscular Pt performed and completed all Exs listed above. Pt ambulated from room, down [place] and around lobby. Once Pt was concluded, pt was seated in recliner with call light and tray in reach, pt request her cup be filled with ice, all needs where met. Assessment Current Status: Good Progress Pt would benefit from continued PT to improve on activity tolerance and stre ngth. PT Snf Goals Snf Goals PT Snf Goals Time Frame: Jan 09, 2022 Roll Left & Right (QC): 6 Sit to Lying (QC): 6 Lying-Sitting on Side/Bed(QC): 6 Sit to Stand (QC): 6 Chair/Zgs-sa-Hzhtk Xfer(QC): 6 Toilet Transfer (QC): 6 Car Transfer (QC): 6 Does the Patient Walk: Yes Walk 10 feet (QC): 6 Walk 50ft with 2 Turns (QC): 6 Walk 150 ft (QC): 4 Walking 10ft on Uneven Surface: 6 1 Step (curb) (QC): 6 4 Steps (QC): 4 12 Steps (QC): 4 Picking up an Object (QC): 6 Does the Pt use WC or Scooter?: No Wheel 50 feet with 2 turns (QC: 9 Wheel 150 feet: 9 PT Plan Problem List Problem List: Activity Tolerance, Functional Strength Treatment/Plan Treatment Plan: Continue Plan of Care Treatment Plan: Bed Mobility, Education, Functional Activity Pauline, Functional Strength, Group Therapy, Gait, Safety, Therapeutic Exercise, Transfers Treatment Duration: Jan 13, 2022 Frequency: At least 5 of 7 days/Wk (IRF) Estimated Hrs Per Day: 1.5 hours per day Patient and/or Family Agrees t: Yes Time/GCodes Time In: 953 Time Out: 1012 Total Billed Treatment Time: 19 Total Billed Treatment 1, Exs 19 REED ORELLANA [employer]IST Dec 26, 2021 10:19
[2021-12-26 17:16] VITALS: BP 131/62
[2021-12-26 19:33] VITALS: BP 106/62
[2021-12-26] MEDS: GABAPENTIN 300 MG (NEURONTIN) CAP PO SCH (20:50)
[2021-12-26] MEDS: AMIODARONE 200 MG (CORDARONE) TAB PO SCH (20:50)
[2021-12-27] MEDS: PANTOPRAZOLE 40 MG (PROTONIX) TAB PO SCH (06:29)
[2021-12-27] MEDS: FERROUS SULF 325 MG (IRON) TAB PO SCH (06:29)
[2021-12-27 07:06] VITALS: BP 118/58
[2021-12-27] MEDS: APIXABAN 5 MG (ELIQUIS) TABLET PO SCH ×2 (07:50→20:35)
[2021-12-27] MEDS: ASPIRIN E.C. 81 MG (ECOTRIN) TAB PO SCH (07:50)
[2021-12-27] MEDS: ISOSORBIDE MONONITRATE 60 MG (IMDUR) TAB PO SCH (07:50)
[2021-12-27] MEDS: GABAPENTIN 600 MG (NEURONTIN) TAB PO SCH ×3 (07:50→20:34)
[2021-12-27] MEDS: lisINopril 20 MG (PRINIVIL) TABLET PO SCH (07:50)
[2021-12-27] MEDS: FUROSEMIDE 40 MG (LASIX) TAB PO SCH (07:50)
[2021-12-27] MEDS: FAMOTIDINE 20 MG (PEPCID) TABLET PO SCH (07:50)
[2021-12-27] MEDS: SENNA W/DOCUSATE (SENOKOT S) TABLET PO SCH ×2 (09:00→21:25)
[2021-12-27] MEDS: polyethylene glycoL POWDER 17 GM (MIRALAX) PACK PO SCH ×2 (09:00→21:25)
[2021-12-27] MEDS: DOCUSATE SODIUM 100 MG (COLACE) CAP PO SCH ×2 (09:00→21:25)
--- NOTE | 2021-12-27 17:19 | PM&R Progress Note ---
Subjective HPI/CC On Admission Date Seen by Provider: Dec 27, 2021 Time Seen by Provider: 16:00 Subjective/Events-last exam 12/27/2021: Doing well Left leg still an issue Gabapentin increase at night has been helpful 12/26/2021: Doing well Leg pain at night is an issue so increasing Gabapentin to 900mg at night leaving 600 BID during the day BM+ 12/25/2021: Pt is doing a lot better Bowels are moving Working on things until tuesday Checked meds and labs 12/24/2021: Patient doing well Patient has chronic back pain No falls Participating in therapy 12/23/2021: Doing well Improved status Ambulating well Will continue strengthening Submitting progress to insurance Objective Exam Vital Signs Vital Signs Date Time Temp Pulse Resp B/P (MAP) Pulse Ox O2 Delivery O2 Flow Rate FiO2 12/27/21 20:34 Room Air 12/27/21 19:43 36.8 72 19 129/60 (83) 95 Capillary Refill : General Appearance: No Apparent Distress, WD/WN, Chronically ill, Obese HEENT: PERRL/EOMI, Normal ENT Inspection, Pharynx Normal Neck: Full Range of Motion, Normal Inspection, Non Tender, Supple, Carotid Bruit Respiratory: Chest Non Tender, Lungs Clear, Normal Breath Sounds, No Accessory Muscle Use, No Respiratory Distress Cardiovascular: Regular Rate, Rhythm, No Edema, No Gallop, No JVD, No Murmur, Normal Peripheral Pulses Gastrointestinal: Normal Bowel Sounds, No Organomegaly, No Pulsatile Mass, Non Tender, Soft Rectal: Deferred Back: Normal Inspection, No CVA Tenderness, No Vertebral Tenderness Extremity: Normal Capillary Refill, Normal Inspection, Normal Range of Motion, Non Tender, No Calf Tenderness, No Pedal Edema Neurologic/Psychiatric: Alert, Oriented x3, processing analyst II-XII Norm as Tested, Abnormal Gait, Depressed Affect, Motor Weakness (Lower extremities 3/5) Skin: Normal Color, Warm/Dry Lymphatic: No Adenopathy Results/Procedures Lab Patient resulted labs reviewed. FIM Transfers Therapy Code Descriptions/Definitions Functional [place] Measure: 0=Not Assessed/NA 4=Minimal Assistance 1=Total Assistance 5=Supervision or Setup 2=Maximal Assistance 6=Modified [place] 3=Moderate Assistance 7=Complete IndependenceSCALE: Activities may be completed with or without assistive devices. 6-Yxkzghzqmt-eqyjuxy completes the activity by him/herself with no assistance from a helper. 5-Set-up or Clean-up Assistance-helper sets up or cleans up; patient completes activity. [place] assists only prior to or following the activity. 4-Supervision or Touching Assistance-helper provides verbal cues and/or touching/steadying and/or contact guard assistance as patient completes activity. Assistance may be provided throughout the activity or intermittently. 3-Partial/Moderate Assistance-helper does LESS THAN HALF the effort. [place] lifts, holds or supports trunk or limbs, but provides less than half the effort. 2-Substantial/Maximal Assistance-helper does MORE THAN HALF the effort. [place] lifts or holds trunk or limbs and provides more than half the effort. 7-Qgrmmhivg-abkckd does ALL the effort. Patient does none of the effort to complete the activity. Or, the assistance of 2 or more helpers is required for the patient to complete the activity. If activity was not attempted, code reason: 7-Patient Refused. 9-Not Applicable-not attempted and the patient did not perform the activity before the current illness, exacerbation or injury. 10-Not Attempted due to Environmental Limitations-(lack of equipment, weather restraints, etc.). 88-Not Attempted due to Medical Conditions or Safety Concerns. Roll Left to Right (QC): 6 Sit to Lying (QC): 6 Sit to Stand (QC): 6 Chair/Ago-la-Kumwl Xfer(QC): 4 Car Transfer (QC): 6 Gait Training Does the Patient Walk?: Yes Distance: 200' Walk 10 feet (QC): 4 Walk 50 ft with 2 Turns(QC): 4 Walk 150 ft (QC): 4 Walking 10ft/uneven surface-QC: 4 Gait Persons Needed: 1 Gait Assistive Device: FWW Wheelchair Training Does the Pt Use a Wheelchair?: No Wheel 50 ft with 2 turns (QC): 9 Wheel 150 ft (QC): 9 Stair Training Stair Training: Handrails/: 2 handrails #of Steps: 12 1 Step (curb) (QC): 4 4 Steps (QC): 4 12 Steps (QC): 4 Stairs: Pattern: Step to Balance Picking up an Object (QC): 6 ADL-Treatment Eating (QC): 6 (Per pt report) Oral Hygiene (QC): 6 Shower/Bathe Self (QC): 6 Upper Body Dressing (QC): 6 Lower Body Dressing (QC): 6 On/Off Footwear (QC): 6 (slippers and tennis shoes) Toileting Hygiene (QC): 6 Assessment/Plan Assessment and Plan Assess & Plan/Chief Complaint Assessment: 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 Recent MRI maintained on aspirin Chronic atrial fibrillation on Xarelto Hypertension Obesity Diabetes Plan: Inpatient rehab protocol PT and OT Supportive care 12/23/2021: Monitor progress Aggressive therapy 12/24/2021: Supportive care Gabapentin 12/25/2021: Monitor closely 12/26/2021: Monitor pain Gabapentin at night 900mg 12/27/21: DC home (1) Immune mediated polyneuropathy (2) Recent myocardial infarction (3) Atrial fibrillation Status: Chronic (4) Non-insulin dependent type 2 diabetes mellitus Status: Chronic (5) Essential (primary) hypertension Status: Chronic ESTEVAN FREEMAN DO Dec 27, 2021 17:19
[2021-12-27 19:43] VITALS: BP 129/60
[2021-12-27] MEDS: GABAPENTIN 300 MG (NEURONTIN) CAP PO SCH (20:35)
[2021-12-27] MEDS: AMIODARONE 200 MG (CORDARONE) TAB PO SCH (20:35)
[2021-12-28] MEDS: PANTOPRAZOLE 40 MG (PROTONIX) TAB PO SCH (06:31)
[2021-12-28] MEDS: FERROUS SULF 325 MG (IRON) TAB PO SCH (06:32)
[2021-12-28] MEDS ORDERED: GABA-486 PO (06:47)
--- NOTE | 2021-12-28 06:48 | Discharge Summary ---
Diagnosis/Chief Complaint Date of Admission Dec 22, 2021 at 15:04 Date of Discharge Discharge Date: Dec 28, 2021 Discharge Diagnosis Assessment: 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 Recent MRI maintained on aspirin Chronic atrial fibrillation on Xarelto Hypertension Obesity Diabetes Plan: Inpatient rehab protocol PT and OT Supportive care 12/23/2021: Monitor progress Aggressive therapy 12/24/2021: Supportive care Gabapentin 12/25/2021: Monitor closely 12/26/2021: Monitor pain Gabapentin at night 900mg 12/27/21: DC home (1) Immune mediated polyneuropathy (2) Recent myocardial infarction (3) Atrial fibrillation Status: Chronic (4) Non-insulin dependent type 2 diabetes mellitus Status: Chronic (5) Essential (primary) hypertension Status: Chronic Discharge Summary Discharge Physical Examination Allergies: Coded Allergies: codeine (Verified Allergy, Unknown, 09/15/17) meperidine (Verified Allergy, Unknown, 09/15/17) morphine (Verified Allergy, Unknown, 09/15/17) Vitals & I&Os Vital Signs Date Time Temp Pulse Resp B/P (MAP) Pulse Ox O2 Delivery O2 Flow Rate FiO2 12/28/21 10:45 36.5 65 20 143/83 98 Room Air General Appearance: Alert, Oriented X3, Cooperative Respiratory: Clear to Auscultation Cardiovascular: Regular Rate Neuro: Normal Gait, Normal Speech, Strength at 5/5 X4 Ext Psych/Mental Status: Mental Status NL Hospital Course Was the Problem List Reviewed?: Yes This is a 71-year-old female clinic patient of Dr. Nance who was transferred from [facility] on 11/23/2021 due to bilateral lower extremity weakness and a fall in christian. There was a concern of transverse myelitis versus acute immune mediated polyneuropathy so she was moved to [facility] received Plex treatments from 11/26- with recent imaging showing L3-L5 stenosis and was discharged home but then readmitted due to chest pain with small area of infarction of apical LAD. Admitted to inpt rehab unit on 12/22 due to bilateral lower extremity weakness. Her prior level of function was independent with all ADLs with no devices as she lived at home with her spouse. On admit she was moderate to max assist with transfers. PT and OT was started on admission. Over the course of her stay she made steady progress and participated well in therapy. She had issues with chronic left leg pain over the course of her stay. Gabapentin course was changed to 600mg BID and then 900mg at night. The increase of gabapentin at night was helpful. Today she reports that she is doing very well and is ready to go home. When asked she denied having any concerns expect she would like to know when her next Plex treatment is. Labs (last 24 hrs) Laboratory Tests 12/23/21 05:35: White Blood Count 5.6, Red Blood Count 3.53L, Hemoglobin 10.5L, Hematocrit 34L, Mean Corpuscular Volume 96, Mean Corpuscular Hemoglobin 30, Mean Corpuscular Hemoglobin Concent 31L, Red Cell Distribution Width 14.6H, Platelet Count 273, Mean Platelet Volume 9.5, Immature Granulocyte % (Auto) 1, Neutrophils (%) (Auto) 46, Lymphocytes (%) (Auto) 35, Monocytes (%) (Auto) 13H, Eosinophils (%) (Auto) 6, Basophils (%) (Auto) 1, Neutrophils # (Auto) 2.6, Lymphocytes # (Auto) 2.0, Monocytes # (Auto) 0.7, Eosinophils # (Auto) 0.3, Basophils # (Auto) 0.0, Immature Granulocyte # (Auto) 0.0, Sodium Level 141, Potassium Level 3.8, Chloride Level 110H, Carbon Dioxide Level 22, Anion Gap 9, Blood Urea Nitrogen 26H, Creatinine 0.93, Estimat Glomerular Filtration Rate 65, BUN/Creatinine Ratio 28, Glucose Level 104, Calcium Level 9.1, Corrected Calcium 9.3, Total Bilirubin 0.7, Aspartate Amino Transf (AST/SGOT) 8, Alanine Aminotransferase (ALT/SGPT) 11, Alkaline Phosphatase 72, Total Protein 6.0L, Albumin 3.7 Pending Labs Laboratory Tests 12/23/21 05:35: White Blood Count 5.6, Red Blood Count 3.53, Hemoglobin 10.5, Hematocrit 34, Mean Corpuscular Volume 96, Mean Corpuscular Hemoglobin 30, Mean Corpuscular Hemoglobin Concent 31, Red Cell Distribution Width 14.6, Platelet Count 273, Mean Platelet Volume 9.5, Immature Granulocyte % (Auto) 1, Neutrophils (%) (Auto) 46, Lymphocytes (%) (Auto) 35, Monocytes (%) (Auto) 13, Eosinophils (%) (Auto) 6, Basophils (%) (Auto) 1, Neutrophils # (Auto) 2.6, Lymphocytes # (Auto) 2.0, Monocytes # (Auto) 0.7, Eosinophils # (Auto) 0.3, Basophils # (Auto) 0.0, Immature Granulocyte # (Auto) 0.0, Sodium Level 141, Potassium Level 3.8, Chloride Level 110, Carbon Dioxide Level 22, Anion Gap 9, Blood Urea Nitrogen 26, Creatinine 0.93, Estimat Glomerular Filtration Rate 65, BUN/Creatinine Ratio 28, Glucose Level 104, Calcium Level 9.1, Corrected Calcium 9.3, Total Bilirubin 0.7, Aspartate Amino Transf (AST/SGOT) 8, Alanine Aminotransferase (ALT/SGPT) 11, Alkaline Phosphatase 72, Total Protein 6.0, Albumin 3.7 Discharge Home Medications: Active Scripts Active Gabapentin 100 Mg Capsule 300 Mg PO HS Give 300mg at night along with 600mg to equal 900mg Pantoprazole Sodium 40 Mg Tablet.dr 40 Mg PO HS Famotidine 20 Mg Tablet 20 Mg PO DAILY Furosemide 40 Mg Tablet 40 Mg PO DAILY Gabapentin 600 Mg Tablet 600 Mg PO TID HYDROcodone/APAP 5 MG/325 MG TAB (Acetaminophen/Hydrocodone Bitart) 1 Tab Tab 1 Ea PO Q4H PRN Aspirin EC (Aspirin) 81 Mg Tablet.dr 81 Mg PO DAILY Amiodarone HCl 200 Mg Tablet 200 Mg PO HS Eliquis (Apixaban) 5 Mg Tablet 5 Mg PO BID Tessalon Perles (Benzonatate) 100 Mg Capsule 100 Mg PO Q6H PRN Cyclobenzaprine HCl 10 Mg Tablet 10 Mg PO Q8H PRN Reported Vitamin D3 (Cholecalciferol (Vitamin D3)) 25 Mcg Capsule 25 Mcg PO DAILY Ondansetron Odt (Ondansetron) 4 Mg Tab.rapdis 4 Mg PO Q6H PRN Diltiazem ER (Diltiazem HCl) 180 Mg Tab.er.24h 180 Mg PO DAILY Lisinopril 20 Mg Tablet 20 Mg PO DAILY Isosorbide Mononitrate ER (Isosorbide Mononitrate) 60 Mg Tab 60 Mg PO DAILY Ferrous Sulfate 325 Mg Tablet 325 Mg PO DAILY Carvedilol 25 Mg Tablet 25 Mg PO BID Atorvastatin Calcium 20 Mg Tablet 20 Mg PO HS Instructions to patient/family Please see electronic discharge instructions given to patient. Diagnosis/Problems Diagnosis/Problems (1) Immune mediated polyneuropathy (2) Recent myocardial infarction (3) Atrial fibrillation Status: Chronic (4) Non-insulin dependent type 2 diabetes mellitus Status: Chronic (5) Essential (primary) hypertension Status: Chronic ESTEVAN FREEMAN DO Dec 28, 2021 06:48
--- NOTE | 2021-12-28 07:55 | Occupational Ther Daily Note ---
OT Current Status-Daily Note Subjective Pt seated EOB upon OT arrival, agreeable to tx. Pt is eager to go home today. Mental Status/Objective Patient Orientation: Person, Place, Situation ADL-Treatment Therapy Code Descriptions/Definitions Functional [place] Measure: 0=Not Assessed/NA 4=Minimal Assistance 1=Total Assistance 5=Supervision or Setup 2=Maximal Assistance 6=Modified [place] 3=Moderate Assistance 7=Complete IndependenceSCALE: Activities may be completed with or without assistive devices. 2-Imbizvkkzd-lfvabnz completes the activity by him/herself with no assistance from a helper. 5-Set-up or Clean-up Assistance-helper sets up or cleans up; patient completes activity. [place] assists only prior to or following the activity. 4-Supervision or Touching Assistance-helper provides verbal cues and/or touching/steadying and/or contact guard assistance as patient completes activity. Assistance may be provided throughout the activity or intermittently. 3-Partial/Moderate Assistance-helper does LESS THAN HALF the effort. [place] lifts, holds or supports trunk or limbs, but provides less than half the effort. 2-Substantial/Maximal Assistance-helper does MORE THAN HALF the effort. [place] lifts or holds trunk or limbs and provides more than half the effort. 9-Xzjjsriia-ogkhxg does ALL the effort. Patient does none of the effort to complete the activity. Or, the assistance of 2 or more helpers is required for the patient to complete the activity. If activity was not attempted, code reason: 7-Patient Refused. 9-Not Applicable-not attempted and the patient did not perform the activity before the current illness, exacerbation or injury. 10-Not Attempted due to Environmental Limitations-(lack of equipment, weather restraints, etc.). 88-Not Attempted due to Medical Conditions or Safety Concerns. Eating (QC): 6 (per pt report) Oral Hygiene (QC): 6 Shower/Bathe Self (QC): 6 Upper Body Dressing (QC): 6 Lower Body Dressing (QC): 6 On/Off Footwear: 6 (slip on shoes) Toileting Hygiene (QC): 6 Toilet Transfer (QC): 6 Other Treatment Pt independently stood from EOB and walked to closet to retrieve appropriate clothing items. She walked to bathroom with FWW to complete showering, dressing, toileting, and oral care/grooming tasks independently. Pt walked back to [facility] after self-care activities. Post tx, pt left in recliner with call light in reach and all needs met. Education OT Patient Education: Energy conservation, Modified ADL techniques, Progress toward Goal/Update tx plan, Purpose of tx/functional activities, Rehab process, Safety issues Teaching Recipient: Patient Teaching Methods: Discussion Response to Teaching: Verbalize Understanding OT Short Term Goals Short Term Goals Time Frame: Jan 01, 2022 Shower/bathe self: 5 Upper body dressin Lower body dressin Putting on/taking off footwear: 5 OT Facility Security Officer Goals Facility Security Officer Goals Time Frame: Jan 15, 2022 Eating (QC): 6 (met) Oral Hygiene (QC): 6 (met) Toileting Hygiene (QC): 6 (met) Shower/Bathe Self (QC): 6 (met) Upper Body Dressing (QC): 6 (met) Lower Body Dressing (QC): 6 (met) On/Off Footwear (QC): 6 (met) Additional Goals: 1-Demonstrate ADL Tasks, 2-Verbalize Understanding, 3- ImproveStrength/Pauline 1=Demonstrate adherence to instructed precautions during ADL tasks. 2=Patient will verbalize/demonstrate understanding of assistive devices/modifications for ADL. 3=Patient will improve strength/tolerance for activity to enable patient to perform ADL's. OT Education/Plan Problem List/Assessment Assessment: Decreased Activ Tolerance, Decreased Safety Aware Discharge Recommendations Plan/Recommendations: Continue POC Treatment Plan/Plan of Care Patient would benefit from OT for education, treatment and training to promote independence in ADL's, mobility, safety and/or upper extremity function for ADL's. Plan of Care: ADL Retraining, Functional Mobility, Group Exercise/Act as Ind, UE Funct Exercise/Act Treatment Duration: Jan 15, 2022 Frequency: At least 5 of 7 days/Wk (IRF) Estimated Hrs Per Day: 1.5 hours per day Agreement: Yes Rehab Potential: Good Time/GCodes Start Time: 07:45 Stop Time: 08:15 Total Time Billed (hr/min): 30 Billed Treatment Time 1, ADL 2 (30') MARSHAL KELLY OT Dec 28, 2021 07:55
[2021-12-28 08:47] VITALS: BP 143/83
[2021-12-28] MEDS: ISOSORBIDE MONONITRATE 60 MG (IMDUR) TAB PO SCH (08:51)
[2021-12-28] MEDS: GABAPENTIN 600 MG (NEURONTIN) TAB PO SCH (08:51)
[2021-12-28] MEDS: APIXABAN 5 MG (ELIQUIS) TABLET PO SCH (08:51)
[2021-12-28] MEDS: FUROSEMIDE 40 MG (LASIX) TAB PO SCH (08:52)
[2021-12-28] MEDS: FAMOTIDINE 20 MG (PEPCID) TABLET PO SCH (08:52)
[2021-12-28] MEDS: ASPIRIN E.C. 81 MG (ECOTRIN) TAB PO SCH (08:52)
[2021-12-28] MEDS: lisINopril 20 MG (PRINIVIL) TABLET PO SCH (08:52)
--- NOTE | 2021-12-28 08:58 | Physical Therapy Daily Note ---
PT Daily Note-Current Subjective Patient in recliner pre tx, agrees to PT, has no complaints of pain. Appearance Patient in recliner post tx with nurse call, phone, tray, all needs met. Mental Status Patient Orientation: Person, Place, Situation Transfers SCALE: Activities may be completed with or without assistive devices. 5-Pinxiksoub-gmqyycy completes the activity by him/herself with no assistance from a helper. 5-Set-up or Clean-up Assistance-helper sets up or cleans up; patient completes activity. [place] assists only prior to or following the activity. 4-Supervision or Touching Assistance-helper provides verbal cues and/or dianne mj/steadying and/or contact guard assistance as patient completes activity. Assistance may be provided throughout the activity or intermittently. 3-Partial/Moderate Assistance-helper does LESS THAN HALF the effort. [place] lifts, holds or supports trunk or limbs, but provides less than half the effort. 2-Substantial/Maximal Assistance-helper does MORE THAN HALF the effort. [place] lifts or holds trunk or limbs and provides more than half the effort. 0-Lbczvexvz-grkrkb does ALL the effort. Patient does none of the effort to complete the activity. Or, the assistance of 2 or more helpers is required for the patient to complete the activity. If activity was not attempted, code reason: 7-Patient Refused. 9-Not Applicable-not attempted and the patient did not perform the activity before the current illness, exacerbation or injury. 10-Not Attempted due to Environmental Limitations-(lack of equipment, weather restraints, etc.). 88-Not Attempted due to Medical Conditions or Safety Concerns. Roll Left & Right (QC): 6 Sit to Lying (QC): 6 Lying to Sitting/Side of Bed(Q: 6 Sit to Stand (QC): 6 Chair/Zzd-fw-Lbuur Xfer(QC): 6 Toilet Transfer (QC): 6 Car Transfer (QC): 6 Patient performs rolling and supine <-> sit with independence, sit <-> stand and transfers with independence, car transfer independent Weight Bearing Right Lower Extremity: Right Full Weight Bearing Left Lower Extremity: Left Full Weight Bearing Gait Training Distance: 150' Walk 10 feet (QC): 6 Walk 50 ft with 2 Turns(QC): 6 Walk 150 ft (QC): 6 Walking 10ft/uneven surface-QC: 4 Gait Assistive Device: FWW Patient can ambulate 150' with a rolling walker with independence (including 50' with at least 2 turns of 90 degrees but needs SBA for 10' over an uneven surface), patient fatigues quickly Wheelchair Training Wheel 50 ft with 2 turns (QC): 9 Wheel 150 ft (QC): 9 Stair Training Stair Training: Handrails/: 2 handrails #of Steps: 4 1 Step (curb) (QC): 4 4 Steps (QC): 4 12 Steps (QC): 88 Stairs: Pattern: Step to Patient can go up and down 4 steps using 2 handrails with SBA Balance Picking up an Object (QC): 6 (using university counselor) Neuromuscular Tinetti Treatments bed mobility and transfers, ambulation, stair training Assessment Current Status: Fair Progress improved balance PT Phone Engineer Goals Correction Goals PT Correction Goals Time Frame: Jan 09, 2022 Roll Left & Right (QC): 6 Sit to Lying (QC): 6 Lying-Sitting on Side/Bed(QC): 6 Sit to Stand (QC): 6 Chair/Omt-zk-Rccbs Xfer(QC): 6 Toilet Transfer (QC): 6 Car Transfer (QC): 6 Does the Patient Walk: Yes Walk 10 feet (QC): 6 Walk 50ft with 2 Turns (QC): 6 Walk 150 ft (QC): 4 Walking 10ft on Uneven Surface: 6 1 Step (curb) (QC): 6 4 Steps (QC): 4 12 Steps (QC): 4 Picking up an Object (QC): 6 Does the Pt use WC or Scooter?: No Wheel 50 feet with 2 turns (QC: 9 Wheel 150 feet: 9 PT Plan Problem List Problem List: Activity Tolerance, Functional Strength, Safety, Balance, Gait, Transfer, Bed Mobility, ROM Treatment/Plan Treatment Plan: Continue Plan of Care Treatment Plan: Bed Mobility, Education, Functional Activity Pauline, Functional Strength, Group Therapy, Gait, Safety, Therapeutic Exercise, Transfers Treatment Duration: Jan 13, 2022 Frequency: At least 5 of 7 days/Wk (IRF) Estimated Hrs Per Day: 1.5 hours per day Patient and/or Family Agrees t: Yes Safety Risks/Education Patient Education: Gait Training, Transfer Techniques, Steps, Correct Positioning, Safety Issues Teaching Recipient: Patient Teaching Methods: Demonstration, Discussion Response to Teaching: Reinforcement Needed Time/GCodes Time In: 814 Time Out: 829 Total Billed Treatment Time: 15 Total Billed Treatment 1 visit FA FABIAN SYLVESTER PT Dec 28, 2021 08:58
--- NOTE | 2021-12-28 09:13 | Cardiology Progress Note ---
Subjective Date Seen by Provider: Dec 28, 2021 Time Seen by Provider: 08:05 Subjective/Events-last exam Patient is sitting up in chair, no new complaints. 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 Receiving PT/OT CAD, Cardiac cath of September 15, [address] Wong showed mild dz to LAD; mild dz to L cx; patent stents to the prox and distal RCA Stress test done 08-01-20 is suggestive of a small to moderate amount of anterior ischemia. Normal regional wall motion. Normal global left ventricular systolic function with a calculated ejection fraction of 71%. Did not warrant LHC. Recent cardiac catheterization was done at [facility] did not require any stenting Dilated ischemic cardiomyopathy and h/o systolic CHF, compensated Echocardiogram of 07-31-20 showed LVEF 55-65%. Grade 1 diastolic dysfunction. LA mildly to mod dilated. AoV thickening consistent with sclerosis. Mild to mod MR. Bi-ventricular ICD (implanted by Dr. Zapata, implanted 08-04-16) Paroxysmal a-fib, maintained on Amiodarone 200mg daily, OAC with Eliquis HTN, controlled, continue to monitor. 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 collaterals noted too per Dr. Wong H/O thyroid nodules, followed by PCP. OK for discharge from cardiology standpoint. F/u with Dr. Cooper in 2-4 weeks. Supervisory-Addendum Brief Supervisory Addendum Participated in pt care: history, MDM, physical Personally performed: exam, history, MDM Care discussed with: PA Results interpretation: Verified all documentation Notes: Patient was seen and evaluated with Christina, no new complaint, on examination lungs were clear to auscultation bilaterally, heart is regular rate and rhythm. I will continue on current medication, monitor blood pressure and lipids Patient was seen at bedside, ready for discharge. Denied any chest pain. No pa lpitation Okay for discharge and follow-up with primary shell reprint operator CHRISTINA HINOJOSA Dec 28, 2021 09:13 KARLY CASTRO MD Dec 28, 2021 10:48
--- NOTE | 2021-12-28 09:16 | Therapy Team Discharge Summary ---
Therapy Discharge Summary Discharge Recommendations Date of Discharge Physical Therapy Roll Left to Right (QC): 6 Sit to Lying (QC): 6 Lying to Sitting/Side of Bed(Q: 6 Sit to Stand (QC): 6 Chair/Pmz-wp-Bnfjy Xfer(QC): 6 Toilet Transfer (QC): 6 Car Transfer (QC): 6 Does the Patient Walk: Yes Mode of Locomotion: Walk Anticipated Mode of Locomotion: Walk Walk 10 feet (QC): 6 Walk 50 ft with 2 Turns(QC): 6 Walk 150 ft (QC): 6 Walking 10ft on uneven surface: 4 Distance: 50 Gait Assistive Device: FWW Does the Pt Use a Wheelchair: No Wheel 50 ft with 2 turns (QC): 9 Wheel 150 ft (QC): 9 #of Steps: 4 1 Step (curb) (QC): 4 4 Steps (QC): 4 12 Steps (QC): 88 Balance Sitting Static: Normal Balance Sitting Dynamic: Good Balance-Standing Static: Fair Picking up an Object (QC): 6 (using segmental wall installer) Occupational Therapy Pt presented to ARU with [facility]. At [facility], pt was IND with ADLs and functional mobility. At [facility], she scored IND with eating, supervision with toileting, SBA with showering, oral care, and LBD, and setup with UBD and footwear. OT tx focused on increasing IND in ADLs, functional mobility and balance, activity tolerance, and BUE strength and endurance. Pt made great progress, meeting 7/7 goals. OT does not have any DME or AE recommendations for pt upon d/c. Pt being d/c home with spouse. D/c from skilled OT services at this time. Decreased Activ Tolerance, Decreased Safety Aware Eating (QC): 6 (per pt report) Oral Hygiene (QC): 6 (,et) Shower/Bathe Self (QC): 6 (met) Upper Body Dressing (QC): 6 (met) Lower Body Dressing (QC): 6 (et) On/Off Footwear (QC): 6 (slip on shoes) Toileting Hygiene (QC): 6 (met) PT Liability Claims Manager Goals Mcc Goals PT Mcc Goals Time Frame: Jan 09, 2022 Roll Left to Right (QC): 6 Sit to Lying (QC): 6 Lying-Sitting on Side/Bed(QC): 6 Sit to Stand (QC): 6 Chair/Nqd-sy-Waqxc Xfer(QC): 6 Car Transfer (QC): 6 Does the Patient Walk: Yes Walk 10 feet (QC): 6 Walk 10ft-Uneven Surface(QC): 6 Walk 50ft with 2 Turns (QC): 6 Walk 150 ft (QC): 4 Does the Pt use WC or Scooter?: No Wheel 50 feet with 2 turns (QC: 9 1 Step (curb) (QC): 6 4 Steps (QC): 4 12 Steps (QC): 4 Picking up an Object (QC): 6 OT Mcc Goals Mcc Goals Time Frame: Jan 15, 2022 Eating (QC): 6 (met) Oral Hygiene (QC): 6 (met) Shower/Bathe Self (QC): 6 (met) Upper Body Dressing (QC): 6 (met) Lower Body Dressing (QC): 6 (met) On/Off Footwear (QC): 6 (met) Toileting Hygiene (QC): 6 (met) Toilet/Commode Transfer (QC): 6 Additional Goals: 1-Demonstrate ADL Tasks, 2-Verbalize Understanding, 3- ImproveStrength/Pauline 1=Demonstrate adherence to instructed precautions during ADL tasks. 2=Patient will verbalize/demonstrate understanding of assistive devices/modifications for ADL. 3=Patient will improve strength/tolerance for activity to enable patient to perform ADL's. Speech Liability Claims Manager Goals Liability Claims Manager Goals The patient will demonstrated increased cognitive linguistic skills for safe discharge to the least restrictive environment. Time Frame: Ten Days. MARSHAL KELLY OT Dec 28, 2021 09:16
--- NOTE | 2021-12-28 09:17 | Speech Therapy Daily Note ---
Speech Daily Progress Note Subjective Date Seen by Provider: Dec 28, 2021 Time Seen by Provider: 09:00 The patient was seated upright in her recliner, awake and alert upon entrance to her room. The patient is eager for discharge on this date and agreeable to participation in the skilled speech pathology treatment session. Objective The patient completed the following information for the clinician on this date: Expression of Ideas/Wants: Expression (4) Understanding Verbal Content: Understands (4) Brief Interview-Mental Status: Yes Repetition of Three Words: Three (3) Temporal Orientation: Year: Correct (3) Temporal Orientation: Month: Accurate within 5 days(2) Temporal Orientation: Day: Correct (1) Recall : Wear to say "Sock": Yes, no cue required (2) Recall : Color: Yes, no cue required (2) Recall : Bed: Yes, no cue required (2) Memory/Recall Ability: Current season, That he or she is in a hsp/hsp unit, staff members, and room number The patient remains independently oriented to self, location, month, day of the week, date, and year. Assessment Assessment Current Status: Excellent Progress Treatment Plan Continue Plan of Care Speech Short Term Goals Short Term Goals Short Term Goals The patient will demonstrated 80% accuracy with word-finding exercises with mild clinician verbal cueing. Time Frame-STG: Five Days. Speech Skilled Nursing Goals Interlocking Machine Operator Goals The patient will demonstrated increased cognitive linguistic skills for safe discharge to the least restrictive environment. Time Frame: Ten Days. Speech-Plan Treatment Plan Speech Therapy Treatment Plan: Discontinue ST Treatment Duration: Dec 23, 2021 Frequency: Modified Program (IRF) Estimated Hrs Per Day: Other Rehab Potential: Good Safety Risks/Education Teaching Recipient: Patient Teaching Methods: Discussion Response to Teaching: Verbalize Understanding Education Topics Provided: POC Time Speech Therapy Time In: 09:00 Speech Therapy Time Out: 09:15 Total Billed Time: 15 Billed Treatment Time 1DELMER ELIZABETH ST Dec 28, 2021 09:17
--- NOTE | 2021-12-28 09:18 | Therapy Team Discharge Summary ---
Therapy Discharge Summary Discharge Recommendations Date of Discharge Physical Therapy Roll Left to Right (QC): 6 Sit to Lying (QC): 6 Lying to Sitting/Side of Bed(Q: 6 Sit to Stand (QC): 6 Chair/Epi-vl-Zzaex Xfer(QC): 6 Toilet Transfer (QC): 6 Car Transfer (QC): 6 Does the Patient Walk: Yes Mode of Locomotion: Walk Anticipated Mode of Locomotion: Walk Walk 10 feet (QC): 6 Walk 50 ft with 2 Turns(QC): 6 Walk 150 ft (QC): 6 Walking 10ft on uneven surface: 4 Distance: 50 Gait Assistive Device: FWW Does the Pt Use a Wheelchair: No Wheel 50 ft with 2 turns (QC): 9 Wheel 150 ft (QC): 9 #of Steps: 4 1 Step (curb) (QC): 4 4 Steps (QC): 4 12 Steps (QC): 88 Balance Sitting Static: Normal Balance Sitting Dynamic: Good Balance-Standing Static: Fair Picking up an Object (QC): 6 (using hangar attendant) Occupational Therapy Decreased Activ Tolerance, Decreased Safety Aware Eating (QC): 6 (per pt report) Oral Hygiene (QC): 6 (,et) Shower/Bathe Self (QC): 6 (met) Upper Body Dressing (QC): 6 (met) Lower Body Dressing (QC): 6 (et) On/Off Footwear (QC): 6 (slip on shoes) Toileting Hygiene (QC): 6 (met) Speech-Language Pathology Expression of Ideas/Wants: Expression (4) Understanding Verbal Content: Understands (4) Brief Interview-Mental Status: Yes Repetition of Three Words: Three (3) Temporal Orientation: Year: Correct (3) Temporal Orientation: Month: Accurate within 5 days(2) Temporal Orientation: Day: Correct (1) Recall : Wear to say "Sock": Yes, no cue required (2) Recall : Color: Yes, no cue required (2) Recall : Bed: Yes, no cue required (2) Memory/Recall Ability: Current season, That he or she is in a hsp/hsp unit, staff names, room number. PT Penitentiary Goals Advance Scout Goals PT Penitentiary Goals Time Frame: Jan 09, 2022 Roll Left to Right (QC): 6 Sit to Lying (QC): 6 Lying-Sitting on Side/Bed(QC): 6 Sit to Stand (QC): 6 Chair/Awt-fh-Oiazh Xfer(QC): 6 Car Transfer (QC): 6 Does the Patient Walk: Yes Walk 10 feet (QC): 6 Walk 10ft-Uneven Surface(QC): 6 Walk 50ft with 2 Turns (QC): 6 Walk 150 ft (QC): 4 Does the Pt use WC or Scooter?: No Wheel 50 feet with 2 turns (QC: 9 1 Step (curb) (QC): 6 4 Steps (QC): 4 12 Steps (QC): 4 Picking up an Object (QC): 6 OT Advance Scout Goals Advance Scout Goals Time Frame: Jan 15, 2022 Eating (QC): 6 (met) Oral Hygiene (QC): 6 (met) Shower/Bathe Self (QC): 6 (met) Upper Body Dressing (QC): 6 (met) Lower Body Dressing (QC): 6 (met) On/Off Footwear (QC): 6 (met) Toileting Hygiene (QC): 6 (met) Toilet/Commode Transfer (QC): 6 Additional Goals: 1-Demonstrate ADL Tasks, 2-Verbalize Understanding, 3- ImproveStrength/Pauline 1=Demonstrate adherence to instructed precautions during ADL tasks. 2=Patient will verbalize/demonstrate understanding of assistive devices/modifications for ADL. 3=Patient will improve strength/tolerance for activity to enable patient to perform ADL's. Speech Penitentiary Goals Advance Scout Goals The patient will demonstrated increased cognitive linguistic skills for safe discharge to the least restrictive environment. MET Time Frame: Ten Days. MARTHA KEATING Dec 28, 2021 09:18
[2021-12-28] MEDS: polyethylene glycoL POWDER 17 GM (MIRALAX) PACK PO SCH (10:04)
[2021-12-28] MEDS: SENNA W/DOCUSATE (SENOKOT S) TABLET PO SCH (10:04)
[2021-12-28] MEDS: DOCUSATE SODIUM 100 MG (COLACE) CAP PO SCH (10:04)
--- NOTE | 2021-12-28 10:10 | D/C HH Face to Face Order ---
D/C Face to Face Orders Reconcile Patient Problems Problems Reviewed?: Yes Instructions for Patient Via [facility], Patient Instructions/FollowUp: PCP 1 week Physician to follow Patient: Goyo Discharge Diet for Home: No Restrictions Patient Problems: Polyneuropathy Patient Data-Allergies,Ht & Wt Patient Allergies: Coded Allergies: codeine (Verified Allergy, Unknown, 09/15/17) meperidine (Verified Allergy, Unknown, 09/15/17) morphine (Verified Allergy, Unknown, 09/15/17) Height (Feet): 5 Height (Inches): 5.00 Weight (Pounds): 247 Weight (Ounces): 0.0 Home Health Need/Face to Face Date of Face to Face: Dec 28, 2021 Clinical Findings: Generalized weakness and fatigue, Muscle weakness I have seen Pt ugth-hv-mhqy: Yes Discharged To: Home Diagnosis/Conditions: Debility Patient is Homebound due to: Hannah fall risk due to instabilty, Muscle weakness, Pain w/ambulation Homebound Status Due to the above stated illness, injury or surgical procedure (medical condition or diagnosis) and associated clinical findings, the patient is homebound because of his/her inability to leave home except with aid of a supportive device and/or person AND leaving the home requires a considerable and taxing effort or is medically contraindicated. Pt req the following assistanc: Walker Home Health Nursing Orders Home Health Services Order: Nursing Services, Tour Director-Evaluate & Treat, Physical Therapy-Evaluate & Treat Certify Stmt I certify that this patient is under my care and that I, a nurse practitioner or a physician; a library circulation assistant working with me, had a face to face encounter that - meets the physician face to face encounter requirements with this patient as dated. ESTEVAN FREEMAN DO Dec 28, 2021 10:10
--- NOTE | 2021-12-28 10:12 | Therapy Team Discharge Summary ---
Therapy Discharge Summary Discharge Recommendations Date of Discharge Physical Therapy Patient came to rehab with [facility]. Upon evaluation patient performed rolling and supine <-> sit with CGA/SBA, sit <-> stand and transfers CGA/SBA, car transfer CGA/SBA, ambulated 50' with a rolling walker with CGA/SBA (including 50' with at least 2 turns of 90 degrees and 10' over an uneven surface), went up and down 8 steps using 2 handrails with min assist, and picked up an object from the floor with CGA/SBA. Patient has been performing bed mobility and transfer training, balance and endurance training, functional strengthening, stair training, gait training, and education. Patient has made fair progress and has met all of her bed bug exterminator goals except for walking on an uneven surface and stairs. Now, patient performs rolling and supine <-> sit with independence, sit <-> stand and transfers with independence, car transfer independent, ambulate 150' with a r olling walker with independence (including 50' with at least 2 turns of 90 degrees but needs SBA for 10' over an uneven surface), can go up and down 4 steps using 2 handrails with SBA, and can slate picker an object from the floor with independence using a front office administrator. Patient is being discharged from this facility today and will be discharged from PT at this time. Roll Left to Right (QC): 6 Sit to Lying (QC): 6 Lying to Sitting/Side of Bed(Q: 6 Sit to Stand (QC): 6 Chair/Bnr-vh-Oeiyh Xfer(QC): 6 Toilet Transfer (QC): 6 Car Transfer (QC): 6 Does the Patient Walk: Yes Mode of Locomotion: Walk Anticipated Mode of Locomotion: Walk Walk 10 feet (QC): 6 Walk 50 ft with 2 Turns(QC): 6 Walk 150 ft (QC): 6 Walking 10ft on uneven surface: 4 Distance: 50 Gait Assistive Device: FWW Does the Pt Use a Wheelchair: No Wheel 50 ft with 2 turns (QC): 9 Wheel 150 ft (QC): 9 #of Steps: 4 1 Step (curb) (QC): 4 4 Steps (QC): 4 12 Steps (QC): 88 Balance Sitting Static: Normal Balance Sitting Dynamic: Good Balance-Standing Static: Fair Picking up an Object (QC): 6 (using front office administrator) Occupational Therapy Decreased Activ Tolerance, Decreased Safety Aware Eating (QC): 6 (per pt report) Oral Hygiene (QC): 6 (,et) Shower/Bathe Self (QC): 6 (met) Upper Body Dressing (QC): 6 (met) Lower Body Dressing (QC): 6 (et) On/Off Footwear (QC): 6 (slip on shoes) Toileting Hygiene (QC): 6 (met) PT Optimization Consultant Goals [facility] Goals PT [facility] Goals Time Frame: Jan 09, 2022 Roll Left to Right (QC): 6 Sit to Lying (QC): 6 Lying-Sitting on Side/Bed(QC): 6 Sit to Stand (QC): 6 Chair/Owa-cu-Gvlcd Xfer(QC): 6 Car Transfer (QC): 6 Does the Patient Walk: Yes Walk 10 feet (QC): 6 Walk 10ft-Uneven Surface(QC): 6 Walk 50ft with 2 Turns (QC): 6 Walk 150 ft (QC): 4 Does the Pt use WC or Scooter?: No Wheel 50 feet with 2 turns (QC: 9 1 Step (curb) (QC): 6 4 Steps (QC): 4 12 Steps (QC): 4 Picking up an Object (QC): 6 OT Optimization Consultant Goals [facility] Goals Time Frame: Jan 15, 2022 Eating (QC): 6 (met) Oral Hygiene (QC): 6 (met) Shower/Bathe Self (QC): 6 (met) Upper Body Dressing (QC): 6 (met) Lower Body Dressing (QC): 6 (met) On/Off Footwear (QC): 6 (met) Toileting Hygiene (QC): 6 (met) Toilet/Commode Transfer (QC): 6 Additional Goals: 1-Demonstrate ADL Tasks, 2-Verbalize Understanding, 3- ImproveStrength/Pauline 1=Demonstrate adherence to instructed precautions during ADL tasks. 2=Patient will verbalize/demonstrate understanding of assistive devices/modifications for ADL. 3=Patient will improve strength/tolerance for activity to enable patient to perform ADL's. Speech Optimization Consultant Goals [facility] Goals The patient will demonstrated increased cognitive linguistic skills for safe discharge to the least restrictive environment. MET Time Frame: Ten Days. FABIAN YOUNGER PT Dec 28, 2021 10:12
[2021-12-28 10:45] VITALS: BP 143/83
--- NOTE | 2021-12-28 11:01 | Progress Note ---
COLLIN CHRISTIANSON 12/28/21 1101: Progress Note CC: Acute immune mediated polyneuropathy w/ debility HPI: This is a 71-year-old female clinic patient of Dr. Nance who was transferred from [facility] on 11/23/2021 due to bilateral lower extremity weakness and a fall in yazdanism. There was a concern of transverse myelitis versus acute immune mediated polyneuropathy so she was moved to [facility] received Plex treatments from 11/26- with recent imaging showing L3-L5 stenosis and was discharged home but then readmitted due to chest pain with small area of infarction of apical LAD. Admitted to in rehab unit on 12/22 due to bilateral lower extremity weakness. Her prior level of function was independent with all ADLs with no devices as she lived at home with her spouse. On admit she was moderate to max assist with transfers. PT and OT was started on admission. Over the course of her stay she made steady progress and participated well in therapy. She had issues with chronic left leg pain over the course of her stay. Gabapentin course was changed to 600mg BID and then 900mg at night. The increase of gabapentin at night was helpful. Today she reports that she is doing very well and is ready to go home. When asked she denied having any concerns expect she would like to know when her next Plex treatment is. PMH: chronic Afib, CAD, HTN, HLD, neuropathy, GERD, type 2 diabetes mellitus PSH: coronary stent, defibrillator, cholecystectomy, tonsillectomy, pacemaker Allergies: codeine, meperidine, morphine Meds: lisinopril 20mg QD, gabapentin 600mg BID and 900mg HS, cardizem 180mg QD, Imdur 60mg QD, pepcid 20mg QD, aspirin 81mg QD, coreg 25mg BID, protonix 40mg QD, feosol tablet 325mg QD, lipitor 20mg HS, eliquis 5mg BID, amiodarone 200mg HS FH: heart disease SH: , retired, never a smoker ROS: gen- no fevers, chills heent- no double vision, or eye pain cards- no cp, palpitations lungs- no SOB, cough GI- no ab pain, N/V - no hematuria, dysuria MSK- no muscle weakness, has chronic leg pain neuro- no STONE, dizziness PE: gen: appears stated age, no distress cards: RRR, no murmurs resp: CTAB, regular rate GI: soft, not tender LE: no calf tenderness, pulses intact neuro: A&Ox3, mood normal Pertinent labs: Hgb-10.5, Hct-34 A&P Chronic Immune Demyelinating Polyneuropathy -continue gabapentin use -continue scheduled appointments for Plex treatments Generalized weakness(improving) -PT and OT done here where she showed steady improvement -she will be getting home health services on discharge Chronic Afib Recent HI HTN HLD -continue current home medications -followed by Dr. Cooper, she will need to continue regular appointments for management Diabetes mellitus type 2 -managed by PCP She will be following up outpt w/ PCP in 1 week VIRGINIE FREEMAN DO 12/29/21 0558: Supervisory-Addendum Brief Verification & Attestation Participated in pt care: history, MDM, physical Personally performed: exam, history, MDM, supervision of care Care discussed with: Medical Student Procedures: n/a Results interpretation: Verified all documentation Verification and Attestation of Medical Student E/M Service A medical student performed and documented this service in my presence. I reviewed and verified all information documented by the medical student and made modifications to such information, when appropriate. I personally performed the physical exam and medical decision making. Virginie Freeman, Dec 29, 2021,05:58 COLLIN CHRISTIANSON Dec 28, 2021 11:01 VIRGINIE FREEMAN DO Dec 29, 2021 05:58
== END 2021-12-28 10:45 | disposition home health service (06) | DRG 814 ==
PROVIDERS: ADMIT Internal Medicine; ATTEND Internal Medicine
DX: D89.89 Other specified disorders involving the immune mechanism, not elsewhere classified (principal); I21.02 ST elevation (STEMI) myocardial infarction involving left anterior descending coronary artery; I48.20 Chronic atrial fibrillation, unspecified; I42.0 Dilated cardiomyopathy; I50.22 Chronic systolic (congestive) heart failure; G63 Polyneuropathy in diseases classified elsewhere; I25.5 Ischemic cardiomyopathy; N39.41 Urge incontinence; I25.10 Atherosclerotic heart disease of native coronary artery without angina pectoris; E78.00 Pure hypercholesterolemia, unspecified; I11.0 Hypertensive heart disease with heart failure; E11.9 Type 2 diabetes mellitus without complications; K21.9 Gastro-esophageal reflux disease without esophagitis; E66.9 Obesity, unspecified; I08.0 Rheumatic disorders of both mitral and aortic valves; E04.1 Nontoxic single thyroid nodule; Z79.01 Long term (current) use of anticoagulants; Z68.37 Body mass index [BMI] 37.0-37.9, adult; Z86.73 Personal history of transient ischemic attack (TIA), and cerebral infarction without residual deficits; Z95.5 Presence of coronary angioplasty implant and graft; Z95.810 Presence of automatic (implantable) cardiac defibrillator; Z95.0 Presence of cardiac pacemaker; Z88.5 Allergy status to narcotic agent; Z88.8 Allergy status to other drugs, medicaments and biological substances
CPT/HCPCS: 36415; 80053; 85025; 93005

== ENCOUNTER 2022-04-03 14:57 | Emergency (ER) | payer MEDICARE ==
[~2022-04-03] VITALS: Ht 170.1 cm; Wt 107.9 kg
[~2022-04-03 14:57] MED LIST changes: -ACETAMINOPHEN 325 MG TABLET PO PRN; -ALPRAZolam 0.25 MG (XANAX) TAB PO PRN; +AMIO200T65 PO; +ASPI-1238 PO; -BISACODYL 10 MG SUPP (DULCOLAX) PR PRN; -CALCIUM CARBONATE 500 MG (TUMS) TAB.CHEW PO PRN; -DOCUSATE SODIUM 100 MG (COLACE) CAP PO PRN; +FAMO20TA5 PO; -FLEET ENEMA ADULT 1 EA BTL PR PRN; +FURO40TA4 PO; +GBPN600T PO; -LACTULOSE SYRUP 10GM/15ML (ENULOSE) 30ML UDC PO PRN; -LOPERAMIDE 2 MG (IMODIUM) TABLET PO PRN; -MELATONIN 3 MG TABLET PO PRN; -ONDANSETRON 4 MG (ZOFRAN) ORAL DISSOLVE TAB PO PRN; +PANT40TA52 PO; -diphenhydrAMINE 25 MG TAB (BENADRYL) PO PRN
[2022-04-03] MEDS ORDERED: HYDROcodone/APAP 5 MG/325 MG (LORTAB) TAB PO ONE ×2 (15:30→16:15)
[2022-04-03] MEDS ORDERED: ONDANSETRON 4 MG (ZOFRAN) ORAL DISSOLVE TAB PO ONE (15:30)
--- NOTE | 2022-04-03 15:36 | ED Fall/Injury ---
General Chief Complaint: Trauma-Non Activation Stated Complaint: FALL Nursing Triage Note: PT FALL 30 MIN PRIOR TO ARRIVAL. REPROTS PAIN IN BOTTOM AND BILAT LEGS Source: patient Exam Limitations: no limitations History of Present Illness Date Seen by Provider: Apr 03, 2022 Time Seen by Provider: 15:10 Initial Comments Patient is a 72-year-old female who presents to the emergency department via EMS for evaluation after a fall at home approximately 30 minutes prior to arrival. Patient states she has had progressively worsening lower extremity weakness over the last several months. She was admitted to in January where she was diagnosed with seizures and placed on Keppra. She reportedly had imaging at that time which showed lumbar foraminal stenosis. She states since that time she has had weakness in both her lower extremities. She was getting at home physical therapy for a time but she states she was discharged. She lives at home with her . She typically uses a walker to assist with ambulation. She states she felt that her legs are weakening causing her to fall. She states she fell on her buttocks. Denies hitting her head. She states she is currently having pain in her buttocks and the posterior aspect of both upper legs. She also endorses some pain in her tailbone and lower portion of her lumbar spine. She had an appointment yesterday with a spine surgeon at who stated there was no indication for surgical intervention at this time and she was given an appointment to see an interventional pain specialist in April. She currently does not take any pain medicine per her report and the medication list included in her paperwork given to her at her appointment at yesterday. Allergies and Home Medications Allergies Coded Allergies: codeine (Verified Allergy, Unknown, 09/15/17) meperidine (Verified Allergy, Unknown, 09/15/17) morphine (Verified Allergy, Unknown, 09/15/17) Patient Home Medication List Home Medication List Reviewed: Yes Amiodarone HCl (Amiodarone HCl) 200 Mg Tablet, 200 MG PO HS Prescribed by: GIO BRADY on 12/25/211124 Apixaban (Eliquis) 5 Mg Tablet, 5 MG PO BID Prescribed by: GIO BRADY on 12/25/21 112 Aspirin (Aspirin EC) 81 Mg Tablet.dr, 81 MG PO DAILY Prescribed by: GIO BRADY on 12/25/211124 Atorvastatin Calcium (Atorvastatin Calcium) 20 Mg Tablet, 20 MG PO HS, (Reported) Entered as Reported by: SIVA MCLAUGHLIN on 09/16/17918 Benzonatate (Tessalon Perles) 100 Mg Capsule, 100 MG PO Q6H PRN for COUGH Prescribed by: LIBERTAD HADLEY on 05/24/21 1603 Carvedilol (Carvedilol) 25 Mg Tablet, 25 MG PO BID, (Reported) Entered as Reported by: SIVA MCLAUGHLIN on 09/16/17918 Cholecalciferol (Vitamin D3) (Vitamin D3) 25 Mcg Capsule, 25 MCG PO DAILY, (Reported) Entered as Reported by: TR HAWKINS on 12/27/19 09 Cyclobenzaprine HCl (Cyclobenzaprine HCl) 10 Mg Tablet, 10 MG PO Q8H PRN for SPASMS Prescribed by: DORIAN MUHAMMAD on 08/12/20 2330 Diltiazem HCl (Diltiazem ER) 180 Mg Tab.er.24h, 180 MG PO DAILY, (Reported) Entered as Reported by: TR HAWKINS on 12/27/19933 Famotidine (Famotidine) 20 Mg Tablet, 20 MG PO DAILY Prescribed by: GIO BRADY on 12/25/21 112 Ferrous Sulfate (Ferrous Sulfate) 325 Mg Tablet, 325 MG PO DAILY, (Reported) Entered as Reported by: SIVA MCLAUGHLIN on 09/16/17918 Furosemide (Furosemide) 40 Mg Tablet, 40 MG PO DAILY Prescribed by: GIO BRADY on 12/25/21 112 Gabapentin (Gabapentin) 600 Mg Tablet, 600 MG PO TID Prescribed by: GIO BRADY on 12/25/21 112 Gabapentin (Gabapentin) 100 Mg Capsule, 300 MG PO HS Prescribed by: ESTEVAN FREEMAN on 12/28/21 0647 Hydrocodone Bit/Acetaminophen (HYDROcodone/APAP 5 MG/325 MG TAB) 1 Tab Tab, 1 EA PO Q4H PRN for PAIN-MODERATE (5-7) Prescribed by: GIO BRADY on 12/25/21 112 Isosorbide Mononitrate (Isosorbide Mononitrate ER) 60 Mg Tab, 60 MG PO DAILY, (Reported) Entered as Reported by: SIVA MCLAUGHLIN on 09/16/17918 Lisinopril (Lisinopril) 20 Mg Tablet, 20 MG PO DAILY, (Reported) Entered as Reported by: ZAIN POLLACK on 09/21/18 0814 Ondansetron (Ondansetron Odt) 4 Mg Tab.rapdis, 4 MG PO Q6H PRN for NAUSEA/VOMITING-1ST LINE, (Reported) Entered as Reported by: TR HAWKINS on 12/27/19 0934 Pantoprazole Sodium (Pantoprazole Sodium) 40 Mg Tablet.dr, 40 MG PO HS Prescribed by: GIO BRADY on 12/25/21 1125 Review of Systems Review of Systems Constitutional: no symptoms reported Eyes: No Symptoms Reported Ears, Nose, Mouth, Throat: no symptoms reported Respiratory: no symptoms reported Cardiovascular: no symptoms reported Gastrointestinal: no symptoms reported Genitourinary: no symptoms reported Musculoskeletal: see HPI, back pain Skin: no symptoms reported Past Ybeikvb-Hiynby-Xghmqu Hx Patient Social History Tobacco Use?: No Substance use?: No Alcohol Use?: No Pt feels they are or have been: No Immunizations Up To Date Tetanus Booster (TDap): Unknown PED Vaccines UTD: Yes First/Initial COVID19 Vaccinat: 2020 Second COVID19 Vaccination Pedro: 2020 Third COVID19 Vaccination Date: April, Seasonal Allergies Seasonal Allergies: No Past Medical History Surgery/Hospitalization HX: SPINAL STINOSIS, DM, HX OF SEIZURES Surgeries: Yes (A-V PACEMAKER + DEFIBRILLATOR;CARDIAC CATH/STENT) Cardiac, Coronary Stent, Defibrillator, Gallbladder, Hysterectomy, Pacemaker, Tonsillectomy Respiratory: Yes (COVID-19 INFECTION WITH HOSPITALIZATION 12/2019) Cardiac: Yes (A-V PACEMAKER/DEFIBRILLATOR; CARDIAC CATH WITH STENT) Atrial Fibrillation, Cardiomyopathy, Coronary Artery Disease, High Cholesterol, Hypertension, Irregular Heartbeat Neurological: Yes Neuropathy, TIA Reproductive Disorders: No ENLISTED ADVISOR History: Menopausal Sexually Transmitted Disease: No Genitourinary: Yes Kidney Stones Gastrointestinal: Yes Gastroesophageal Reflux, Gall Bladder Disease Musculoskeletal: Yes (CHRONIC GENERALIZED PAIN; LUMBAR RADICULOPATHY;CHRONIC LEFT ANKLE SWELLING) Degenerate Disk Disease, Arthritis, Chronic Back Pain Endocrine: Yes (DIET CONTROLLED; OBESITY) Diabetes, Non-Insulin dep HEENT: No Cancer: No Psychosocial: No Integumentary: No Blood Disorders: No Family Medical History Heart Disease Physical Exam Vital Signs Vital Signs - First Documented 04/03/22 15:00 Temp 36.0 Pulse 69 Resp 20 B/P (MAP) 150/81 (104) Pulse Ox 94 O2 Delivery Room Air Capillary Refill : Less Than 3 Seconds Height, Weight, BMI Height: 5'5.00" Weight: 247lbs. 0.0oz. 112.747652lh; 37.00 BMI Method:Estimated General Appearance: WD/WN, no apparent distress HEENT: PERRL/EOMI, normal ENT inspection, TMs normal, pharynx normal Neck: non-tender, full range of motion, supple, normal inspection Respiratory: chest non-tender, lungs clear, normal breath sounds, no respiratory distress, no accessory muscle use Gastrointestinal: normal bowel sounds, non tender, soft Back: normal inspection, no vertebral tenderness Extremities: non-tender, normal inspection, no pedal edema, no calf tenderness Neurologic/Psychiatric: no motor/sensory deficits, alert, normal mood/affect, oriented x 3 Skin: normal color, warm/dry Progress/Results/Core Measures Results/Orders My Orders Orders - SNEHAL BALTAZAR APRN Ondansetron Oral Dissolve Tab (Zofran (04/03/22 15:30) Ct Pelvis Wo (04/03/22 15:18) Ct Lumbar Spine Wo (04/03/22 15:18) Hydrocodone/Apap 5/325 Tablet (Lortab 5 (04/03/22 15:30) Hydrocodone/Apap 5/325 Tablet (Lortab 5 (04/03/22 16:15) Medications Given in ED Current Medications Medications Dose Ordered Sig/Maryann Route Start Time Stop Time Status Last Admin Dose Admin Acetaminophen/ Hydrocodone Bitart 1 ea ONCE ONCE PO 04/03/22 15:30 04/03/22 15:31 DC 04/03/22 15:23 1 EA Ondansetron HCl 4 mg ONCE ONCE PO 04/03/22 15:30 04/03/22 15:31 DC 04/03/22 15:23 4 MG Vital Signs/I&O 04/03/22 15:00 Temp 36.0 Pulse 69 Resp 20 B/P (MAP) 150/81 (104) Pulse Ox 94 O2 Delivery Room Air Blood Pressure Mean: 104 Progress Progress Note : Progress Note Patient is nontoxic and well-hydrated on exam. She does have some bilateral posterior buttock as well as sacral/lumbar spine tenderness to palpation. No marked amount of pain with passive range of motion of either hip. She denies any saddle anesthesia at this time. She states she does sometimes have issues with bowel and bladder incontinence. She states these are not new. Again she saw an ortho-spine physician yesterday at who stated she is not a candidate for operative intervention at this time. She has an appointment with an interventional pain specialist in April. CT of the lumbar spine and pelvis revealed no osseous injury. Degenerative changes noted. No indication for further imaging at this time as patient denies any other pain or injury on assessment. Her lower extremity weakness appears chronic and is likely a consequence of far lumbar foraminal stenosis as indicated by her paperwork from . Patient was initially given one 5 mg hydrocodone with minimal improvement in symptoms. She was then given a second 5 mg hydrocodone. She will be discharged home with prescription for the same. Discussed importance of close follow-up with PCP. Return precautions for urgent symptomology discussed. Patient verbalized understanding. Departure Impression Primary Impression: Fall Qualified Codes: W19.XXXA - Unspecified fall, initial encounter Additional Impression: Lumbar radicular pain Disposition: HOME, SELF-CARE Condition: Stable Departure-Patient Inst. Decision time for Depature: 16:10 Referrals: GIO BRADY MD (PCP/Family) Primary Care Physician Patient Instructions: Preventing Falls ED, Radiculopathy (DC) Scripts Ondansetron (Ondansetron Odt) 4 Mg Tab.rapdis 4 MG SL Q4H PRN for NAUSEA/VOMITING for 3 Days, #15 TAB 0 Refills Prov: SNEHAL BALTAZAR APRN 04/03/22 Hydrocodone Bit/Acetaminophen (HYDROcodone/APAP 5 MG/325 MG TAB) 1 Tab Tab 1 TAB PO Q6H PRN for PAIN-MODERATE (5-7) for 3 Days, #12 TAB 0 Refills Prov: SNEHAL BALTAZAR APRN 04/03/22 SNEHAL BALTAZAR APRN Apr 03, 2022 15:36
--- NOTE | 2022-04-03 15:54 | Diagnostic Imaging Report ---
PROCEDURE: CT pelvis without contrast. TECHNIQUE: Multiple contiguous axial images were obtained through the pelvis without the use of intravenous contrast. Sagittal and coronal reformations were performed. Auto Exposure Controls were utilized during the CT exam to meet ALARA standards for radiation dose reduction. INDICATION: Pain after fall. FINDINGS: There is lower lumbar hypertrophic degenerative facet disease. The bony pelvis is intact. The proximal femurs are intact. There is no fracture or dislocation. There is some air in the sacroiliac joints. There are no lytic or sclerotic lesions. The soft tissue structures are unremarkable. IMPRESSION: Degenerative changes in the lumbar spine and hips as well as some air in the SI joints likely also degenerative. No acute fracture or dislocation. Dictated by: Dictated on workstation # [id number]
--- NOTE | 2022-04-03 16:02 | Diagnostic Imaging Report ---
PROCEDURE: CT lumbar spine without contrast. TECHNIQUE: Multiple contiguous axial images were obtained through the lumbar spine without the use of intravenous contrast. Sagittal and coronal reformations were then performed. Auto Exposure Controls were utilized during the CT exam to meet ALARA standards for radiation dose reduction. INDICATION: Back pain after fall. FINDINGS: There is slight degenerative anterolisthesis of L4 on L5. There is a vacuum disc at T12-L1, L4-L5 and L5-S1. The vertebral body heights are well-maintained. There is lower lumbar hypertrophic degenerative facet disease. There is no fracture or traumatic subluxation. There is some atherosclerotic calcination of the aorta. There are no other focal soft tissue abnormalities. IMPRESSION: Moderate to severe lumbar spondylosis and multilevel degenerative disc disease, as described, without acute fracture or traumatic subluxation. Dictated by: Dictated on workstation # [id number]
[2022-04-03] MEDS ORDERED: ACHD5005 PO (16:15)
[2022-04-03] MEDS ORDERED: ONDA4TAB11 SL (16:15)
[2022-04-03 16:30] VITALS: BP 130/57
== END 2022-04-03 16:32 | disposition home or self-care (01) ==
LOC: EDUNIT# 14:57 → ER 15:02
DX: M54.16 Radiculopathy, lumbar region (principal); E66.9 Obesity, unspecified; Z68.37 Body mass index [BMI] 37.0-37.9, adult; Z88.5 Allergy status to narcotic agent; W18.30XA Fall on same level, unspecified, initial encounter; Y93.01 Activity, walking, marching and hiking; Y92.009 Unspecified place in unspecified non-institutional (private) residence as the place of occurrence of the external cause
CPT/HCPCS: 72131; 72192